=== PATIENT | male | born 1980 | race African-American/Black ===

== ENCOUNTER 2023-05-09 09:28 | Inpatient (IN) ==
--- NOTE | 2023-05-09 10:41 | Emergency Department Note ---
History of Present Illness General Chief complaint: Hypotension Stated complaint: WEAKNESS,LOW BP Time Seen by Provider: 05/09/23 10:13 History of Present Illness This is a 42-year-old male that presents to the emergency department via private vehicle accompanied by 2 corrections officers from [facility] where he is currently incarcerated with complaints of "weakness, low blood pressure". The patient notes that he has a history of HIV, vitamin D deficiency, iron deficiency anemia. He states that over the past 3 weeks he has been experiencing increased cough. At times it is productive of green phlegm. No fevers. He notes that he has been compliant with his Biktarvy HIV regimen but did not take it yesterday or today. Patient also notes diarrhea. No vomiting. No chest pain or shortness of breath. No abdominal pain. Patient states that he was hospitalized for several months last year noting pneumonia, GI bleeding and required several blood transfusions. The patient denies any blood in the stool at this time. No blood in the cough. Patient also notes recent weight loss. Patient states that his presentation today feels similar to what prompted him to be hospitalized last year. Additional history obtained from the [facility] report that is accompanying the patient. Patient was reportedly hypotensive yesterday and today despite 1 liter of IV yesterday and throughout the night. Medical history reviewed. No known drug allergies per review of the chart. Home Medications Medication Instructions Recorded Confirmed Type Biktarvy 1 tab PO DAILY 05/09/23 05/09/23 History cholecalciferol (vitamin D3) 25 25 mcg PO DAILY 05/09/23 05/09/23 History mcg (1,000 unit) tablet ergocalciferol (vitamin D2) 1,250 50,000 unit PO . WEEKLY ON Fridays05/09/23 05/09/23 History mcg (50,000 unit) capsule (Drisdol) ferrous sulfate 324 mg (65 mg 324 mg PO DAILY 05/09/23 05/09/23 History iron) tablet,delayed release sulfamethoxazole 800 1 tab PO DAILY 05/09/23 05/09/23 History mg-trimethoprim 160 mg tablet (Bactrim DS) Allergies Allergy/AdvReac Type Severity Reaction Status Date / Time No Known Allergies Allergy Unverified 05/09/23 12:19 Past Med/Surg History Medical History HIV (human immunodeficiency virus infection) Iron deficiency anemia Vitamin D deficiency Social History Smoking Status: Never smoker Preferred Language: [place] Feels Safe at Home: Yes Review of Systems A total of 10 systems reviewed and were otherwise negative Physical Exam Vital Signs Vital Signs - 24 hr 05/09/23 09:41 05/09/23 10:00 05/09/23 10:14 Temperature 36.1 C L Temperature Source Temporal Artery Scan Pulse Rate 64 84 Pulse Rate [Apical] 85 Pulse Rate from SpO2 Sensor Respiratory Rate 19 14 Respiratory Effort / Characteristics Non-Labored Non-Labored Spontaneous Respiratory Depth Normal Normal Respiratory Pattern Regular Blood Pressure 90/61 L Blood Pressure [Left Arm] 97/72 L Blood Pressure Mean 70 Blood Pressure Mean [Left Arm] 80 Pulse Oximetry 100 99 Oxygen Delivery Method Room Air Room Air Sepsis Recent Fever Within 48 Hours No Sepsis New/Unexplained Change in Mental Status No Sepsis Action Taken by Nursing No Action Required 05/09/23 13:19 05/09/23 11:00 05/09/23 12:03 Temperature Temperature Source Pulse Rate 77 Pulse Rate [Apical] Pulse Rate from SpO2 Sensor 78 Respiratory Rate 14 Respiratory Effort / Characteristics Respiratory Depth Respiratory Pattern Blood Pressure 95/69 L 99/55 L Blood Pressure [Left Arm] Blood Pressure Mean 77 64 Blood Pressure Mean [Left Arm] Pulse Oximetry 99 Oxygen Delivery Method Room Air Sepsis Recent Fever Within 48 Hours Sepsis New/Unexplained Change in Mental Status Sepsis Action Taken by Nursing 05/09/23 12:30 05/09/23 13:00 Temperature Temperature Source Pulse Rate 75 84 Pulse Rate [Apical] Pulse Rate from SpO2 Sensor Respiratory Rate 20 18 Respiratory Effort / Characteristics Respiratory Depth Respiratory Pattern Blood Pressure 106/63 108/73 Blood Pressure [Left Arm] Blood Pressure Mean 77 84 Blood Pressure Mean [Left Arm] Pulse Oximetry Oxygen Delivery Method Sepsis Recent Fever Within 48 Hours Sepsis New/Unexplained Change in Mental Status Sepsis Action Taken by Nursing VITAL SIGNS - Vital signs and nursing notes were reviewed. Mildly hypotensive, otherwise stable. GENERAL -42-year-old male appearing his stated age who is in no acute distress. Communicates well with provider and answers questions appropriately. SKIN - Without rashes. No meningeal or petechial rash. HEAD - NC/AT. EYES - PERRL with EOMI bilaterally. Sclera anicteric. EARS - No deformities of external structures noted on gross examination bilaterally. NOSE - Midline and without cyanosis. No epistaxis or purulent drainage noted. MOUTH/OROPHARYNX - Without perioral cyanosis. Buccal mucosa pink and moist and without leukoplakia. Tongue midline with equal elevation of palate bilaterally. No tonsillar hypertrophy, erythema, or exudates noted. Good dentition noted. NECK - Neck with FROM. No nuchal rigidity. LUNGS -clear to auscultation CARDIAC - RRR ABDOMEN - Abdominal contour normal without pulsations or visible masses. BS normoactive all four quadrants. No tenderness, palpable masses, hepatosplenomegaly, or ascites noted. EXTREMITIES - No clubbing or peripheral cyanosis. Mild pale appearance to the fingers bilaterally. +5/5 strength noted in UE/LE bilaterally. NEUROLOGIC - Cranial nerves II through XII grossly intact. PSYCH - A&Ox3 and cooperates fully with examiner. Pt is very pleasant and interacts well with examiner. Course Administered Medications Cefepime HCl 2,000 mg/ Syringe 20 mls @ 5 mls/min IV Q8H JANES; Protocol Stop: 05/11/23 20:59 Last Admin: 05/09/23 20:16 Dose: 5 mls/min Documented By: MARISELA Discontinued Medications Bictegravir/Emtricitabine/Tenofovir (Biktarvy) 1 each PO NOW ONE Stop: 05/09/23 12:16 Last Admin: 05/09/23 12:59 Dose: 1 each Documented By: HARSHIL Sodium Chloride (Nss) 1,000 mls @ 500 mls/hr IV .Q2H JANES Stop: 05/09/23 12:44 Last Infusion: 05/09/23 12:57 Dose: 0 mls/hr Documented By: Admin: 05/09/23 10:51 Dose: 500 mls/hr Documented By: HARSHIL Cefepime HCl (Maxipime) 2,000 mg in 20 mls @ 5 mls/min IV NOW STA; Protocol Stop: 05/09/23 10:57 Last Admin: 05/09/23 12:53 Dose: 5 mls/min Documented By: HARSHIL Vancomycin HCl 1,250 mg/ (Sodium Chloride) 525 mls @ 200 mls/hr IV NOW ONE Stop: 05/09/23 13:31 Last Admin: 05/09/23 11:58 Dose: 200 mls/hr Documented By: HARSHIL Vancomycin HCl 1,000 mg/ (Sodium Chloride) 270 mls @ 200 mls/hr IV Q12H JANES Stop: 05/11/23 15:59 Last Infusion: 05/09/23 16:58 Dose: 0 mls/hr Documented By: Admin: 05/09/23 16:04 Dose: 200 mls/hr Documented By: ADAM Ioversol (Optiray 320 500ml) 116 ml IV ONCE ONE Stop: 05/09/23 13:11 Last Admin: 05/09/23 13:12 Dose: 116 ml Documented By: ZURI Critical Care Time I have personally spent about 60 minutes of critical care time in the direct management of this patient. This includes bedside care, interpretation of diagnostic studies, testing, discussion with consultants, patient and other required patient management activities. This 60 minutes is in excess of all separately billable procedures. Medical Decision Making Laboratory Data 05/09/23 11:20 05/09/23 11:20 Lab Results 05/09/23 05/09/23 05/09/23 Range/Units 11:04 11:20 11:20 WBC (4.8-10.8) K/ul RBC (4.70-6.10) M/uL Hgb (14.0-18.0) g/dl Hct (42.0-52.0) % MCV (80.0-100.0) fL MCH (25.0-34.0) pg MCHC (32.0-36.0) g/dL RDW Std Deviation (36.4-46.3) fL RDW Coeff of Brody (11.5-14.5) % Plt Count (130-400) K/uL MPV (9.4-12.4) fL Immature Gran % (Auto) % Neut % (Auto) % Lymph % (Auto) % [place] % (Auto) % Eos % (Auto) % Baso % (Auto) % Neut # (Auto) (1.40-6.50) K/uL Lymph # (Auto) (1.20-3.40) K/uL [place] # (Auto) (0.11-0.59) K/uL Eos # (Auto) (0.00-0.50) K/uL Baso # (Auto) (0.00-0.20) K/uL Immature Gran # (Auto) (0.01-0.20) K/uL Polychromasia Hypochromasia Tear Drop Cells Echinocytes Schistocytes PT (9.0-12.0) Seconds INR (0.9-1.1) APTT (21.0-31.0) Seconds PTT Ratio Sodium (136-145) mmol/L Potassium (3.5-5.1) mmol/L Chloride (98-107) mmol/L Carbon Dioxide (21-32) mmol/L Anion Gap (3-11) BUN (6-23) mg/dl Creatinine (0.6-1.4) mg/dl Est Cr Clr Drug Dosing ml/min Est GFR ( Amer) ml/min Est GFR (Non-Af Amer) ml/min BUN/Creatinine Ratio (10-20) Glucose (70-99(Fasting)) mg/dl Lactate 1.1 (0.4-2.0) mmol/L Calcium (8.6-10.3) mg/dl Magnesium (1.7-2.4) mg/dl Iron (35-175) mcg/dl TIBC Unsaturated IBC (155-355) mcg/dl Transferrin % Sat Ferritin (8-388) ng/ml Total Bilirubin (0.2-1.0) mg/dl AST (13-39) U/L ALT (7-52) U/L Alkaline Phosphatase (34-104) U/L Troponin I High Sens (0-20) pg/ml Total Protein (6.0-8.3) gm/dl Albumin (3.4-5.0) gm/dl Globulin (2.5-4.0) gm/dl Albumin/Globulin Ratio (0.9-2) Vitamin B12 (180-914) pg/ml Folate (>5.38) ng/ml Procalcitonin 1.00 H (0-0.5) ng/ml TSH (0.300-4.500) uIu/ml Urine Color Urine Appearance (Clear) Urine pH (4.5-7.5) Ur Specific [place] (1.000-1.030) Urine Protein (Negative) Urine Glucose (UA) (Negative) Urine Ketones (Negative) Urine Blood (Negative) Urine Nitrite (Negative) Urine Bilirubin (Negative) Urine Urobilinogen (Negative) Ur Leukocyte Esterase (Negative) Urine WBC (Auto) (0-5) /hpf Urine RBC (Auto) (0-4) /hpf U Hyaline Cast (Auto) (0-5) /lpf U Epithel Cells (Auto) (0-5) /lpf Urine Bacteria (Auto) (Negative) Nasal Screen MRSA (PCR) Negative (Negative) Adenovirus (PCR) (NotDetected) B. pertussis DNA (PCR) (NotDetected) B.parapertussis DNA PCR (NotDetected) C. pneumoniae DNA (PCR) (NotDetected) Coronavirus OC43 (PCR) (NotDetected) Coronavirus HKU1 (PCR) (NotDetected) Coronavirus 229E (PCR) (NotDetected) SARS-CoV-2 (PCR) (NotDetected) Coronavirus NL63 (PCR) (NotDetected) Human Metapneumovir PCR (NotDetected) Influenza Type A (PCR) (NotDetected) Influenza Type B (PCR) (NotDetected) M. pneumoniae (PCR) (NotDetected) Parainfluenza 1 (PCR) (NotDetected) Parainfluenza 2 (PCR) (NotDetected) Parainfluenza 3 (PCR) (NotDetected) Parainfluenza 4 (PCR) (NotDetected) RSV (PCR) (NotDetected) Entero/Rhino (PCR) (NotDetected) Blood Type Blood Type Recheck Antibody Screen Antibody Identification Antigen Identification Crossmatch 05/09/23 05/09/23 05/09/23 Range/Units 11:20 11:20 11:20 WBC 11.88 H (4.8-10.8) K/ul RBC 3.65 L (4.70-6.10) M/uL Hgb 7.3 L (14.0-18.0) g/dl Hct 23.8 L (42.0-52.0) % MCV 65.2 L (80.0-100.0) fL MCH 20.0 L (25.0-34.0) pg MCHC 30.7 L (32.0-36.0) g/dL RDW Std Deviation 39.9 (36.4-46.3) fL RDW Coeff of Brody 17.2 H (11.5-14.5) % Plt Count 408 H (130-400) K/uL MPV 9.1 L (9.4-12.4) fL Immature Gran % (Auto) 0.7 % Neut % (Auto) 77.5 % Lymph % (Auto) 14.5 % [place] % (Auto) 4.8 % Eos % (Auto) 2.2 % Baso % (Auto) 0.3 % Neut # (Auto) 9.22 H (1.40-6.50) K/uL Lymph # (Auto) 1.72 (1.20-3.40) K/uL [place] # (Auto) 0.57 (0.11-0.59) K/uL Eos # (Auto) 0.26 (0.00-0.50) K/uL Baso # (Auto) 0.03 (0.00-0.20) K/uL Immature Gran # (Auto) 0.08 (0.01-0.20) K/uL Polychromasia 1+ Hypochromasia Present Tear Drop Cells 1+ Echinocytes 1+ Schistocytes 1+ PT 11.4 (9.0-12.0) Seconds INR 1.0 (0.9-1.1) APTT 30.8 (21.0-31.0) Seconds PTT Ratio 1.1 Sodium 136 (136-145) mmol/L Potassium 4.2 (3.5-5.1) mmol/L Chloride 107 (98-107) mmol/L Carbon Dioxide 25 (21-32) mmol/L Anion Gap 4 (3-11) BUN 10 (6-23) mg/dl Creatinine 0.98 (0.6-1.4) mg/dl Est Cr Clr Drug Dosing 96.2 ml/min Est GFR ( Amer) 111.3 ml/min Est GFR (Non-Af Amer) 96.1 ml/min BUN/Creatinine Ratio 10.2 (10-20) Glucose 90 (70-99(Fasting)) mg/dl Lactate (0.4-2.0) mmol/L Calcium 7.7 L (8.6-10.3) mg/dl Magnesium 1.8 (1.7-2.4) mg/dl Iron < 10 L (35-175) mcg/dl TIBC TNP Unsaturated IBC 113 L (155-355) mcg/dl Transferrin % Sat TNP Ferritin 219.7 (8-388) ng/ml Total Bilirubin 0.3 (0.2-1.0) mg/dl AST 9 L (13-39) U/L ALT 3 L (7-52) U/L Alkaline Phosphatase 75 (34-104) U/L Troponin I High Sens 5.8 (0-20) pg/ml Total Protein 6.1 (6.0-8.3) gm/dl Albumin 2.3 L (3.4-5.0) gm/dl Globulin 3.8 (2.5-4.0) gm/dl Albumin/Globulin Ratio 0.6 L (0.9-2) Vitamin B12 (180-914) pg/ml Folate (>5.38) ng/ml Procalcitonin (0-0.5) ng/ml TSH 1.770 (0.300-4.500) uIu/ml Urine Color Urine Appearance (Clear) Urine pH (4.5-7.5) Ur Specific [place] (1.000-1.030) Urine Protein (Negative) Urine Glucose (UA) (Negative) Urine Ketones (Negative) Urine Blood (Negative) Urine Nitrite (Negative) Urine Bilirubin (Negative) Urine Urobilinogen (Negative) Ur Leukocyte Esterase (Negative) Urine WBC (Auto) (0-5) /hpf Urine RBC (Auto) (0-4) /hpf U Hyaline Cast (Auto) (0-5) /lpf U Epithel Cells (Auto) (0-5) /lpf Urine Bacteria (Auto) (Negative) Nasal Screen MRSA (PCR) (Negative) Adenovirus (PCR) (NotDetected) B. pertussis DNA (PCR) (NotDetected) B.parapertussis DNA PCR (NotDetected) C. pneumoniae DNA (PCR) (NotDetected) Coronavirus OC43 (PCR) (NotDetected) Coronavirus HKU1 (PCR) (NotDetected) Coronavirus 229E (PCR) (NotDetected) SARS-CoV-2 (PCR) (NotDetected) Coronavirus NL63 (PCR) (NotDetected) Human Metapneumovir PCR (NotDetected) Influenza Type A (PCR) (NotDetected) Influenza Type B (PCR) (NotDetected) M. pneumoniae (PCR) (NotDetected) Parainfluenza 1 (PCR) (NotDetected) Parainfluenza 2 (PCR) (NotDetected) Parainfluenza 3 (PCR) (NotDetected) Parainfluenza 4 (PCR) (NotDetected) RSV (PCR) (NotDetected) Entero/Rhino (PCR) (NotDetected) Blood Type Blood Type Recheck Antibody Screen Antibody Identification Antigen Identification Crossmatch 05/09/23 05/09/23 05/09/23 Range/Units 11:20 11:50 12:31 WBC (4.8-10.8) K/ul RBC (4.70-6.10) M/uL Hgb (14.0-18.0) g/dl Hct (42.0-52.0) % MCV (80.0-100.0) fL MCH (25.0-34.0) pg MCHC (32.0-36.0) g/dL RDW Std Deviation (36.4-46.3) fL RDW Coeff of Brody (11.5-14.5) % Plt Count (130-400) K/uL MPV (9.4-12.4) fL Immature Gran % (Auto) % Neut % (Auto) % Lymph % (Auto) % [place] % (Auto) % Eos % (Auto) % Baso % (Auto) % Neut # (Auto) (1.40-6.50) K/uL Lymph # (Auto) (1.20-3.40) K/uL [place] # (Auto) (0.11-0.59) K/uL Eos # (Auto) (0.00-0.50) K/uL Baso # (Auto) (0.00-0.20) K/uL Immature Gran # (Auto) (0.01-0.20) K/uL Polychromasia Hypochromasia Tear Drop Cells Echinocytes Schistocytes PT (9.0-12.0) Seconds INR (0.9-1.1) APTT (21.0-31.0) Seconds PTT Ratio Sodium (136-145) mmol/L Potassium (3.5-5.1) mmol/L Chloride (98-107) mmol/L Carbon Dioxide (21-32) mmol/L Anion Gap (3-11) BUN (6-23) mg/dl Creatinine (0.6-1.4) mg/dl Est Cr Clr Drug Dosing ml/min Est GFR ( Amer) ml/min Est GFR (Non-Af Amer) ml/min BUN/Creatinine Ratio (10-20) Glucose (70-99(Fasting)) mg/dl Lactate (0.4-2.0) mmol/L Calcium (8.6-10.3) mg/dl Magnesium (1.7-2.4) mg/dl Iron (35-175) mcg/dl TIBC Unsaturated IBC (155-355) mcg/dl Transferrin % Sat Ferritin (8-388) ng/ml Total Bilirubin (0.2-1.0) mg/dl AST (13-39) U/L ALT (7-52) U/L Alkaline Phosphatase (34-104) U/L Troponin I High Sens (0-20) pg/ml Total Protein (6.0-8.3) gm/dl Albumin (3.4-5.0) gm/dl Globulin (2.5-4.0) gm/dl Albumin/Globulin Ratio (0.9-2) Vitamin B12 1026 H (180-914) pg/ml Folate 4.31 L (>5.38) ng/ml Procalcitonin (0-0.5) ng/ml TSH (0.300-4.500) uIu/ml Urine Color Yellow Urine Appearance Clear (Clear) Urine pH 5.0 (4.5-7.5) Ur Specific [place] 1.019 (1.000-1.030) Urine Protein Negative (Negative) Urine Glucose (UA) Negative (Negative) Urine Ketones Negative (Negative) Urine Blood Negative (Negative) Urine Nitrite Negative (Negative) Urine Bilirubin Negative (Negative) Urine Urobilinogen Negative (Negative) Ur Leukocyte Esterase Trace H (Negative) Urine WBC (Auto) 1-5 (0-5) /hpf Urine RBC (Auto) 0-4 (0-4) /hpf U Hyaline Cast (Auto) 1-5 (0-5) /lpf U Epithel Cells (Auto) 5-10 H (0-5) /lpf Urine Bacteria (Auto) Negative (Negative) Nasal Screen MRSA (PCR) (Negative) Adenovirus (PCR) (NotDetected) B. pertussis DNA (PCR) (NotDetected) B.parapertussis DNA PCR (NotDetected) C. pneumoniae DNA (PCR) (NotDetected) Coronavirus OC43 (PCR) (NotDetected) Coronavirus HKU1 (PCR) (NotDetected) Coronavirus 229E (PCR) (NotDetected) SARS-CoV-2 (PCR) (NotDetected) Coronavirus NL63 (PCR) (NotDetected) Human Metapneumovir PCR (NotDetected) Influenza Type A (PCR) (NotDetected) Influenza Type B (PCR) (NotDetected) M. pneumoniae (PCR) (NotDetected) Parainfluenza 1 (PCR) (NotDetected) Parainfluenza 2 (PCR) (NotDetected) Parainfluenza 3 (PCR) (NotDetected) Parainfluenza 4 (PCR) (NotDetected) RSV (PCR) (NotDetected) Entero/Rhino (PCR) (NotDetected) Blood Type B Positive Blood Type Recheck Antibody Screen POSITIVE A Antibody Identification Anti-M Antigen Identification M Antigen - NEGATIVE Crossmatch See Detail 05/09/23 05/09/23 Range/Units 12:46 13:35 WBC (4.8-10.8) K/ul RBC (4.70-6.10) M/uL Hgb (14.0-18.0) g/dl Hct (42.0-52.0) % MCV (80.0-100.0) fL MCH (25.0-34.0) pg MCHC (32.0-36.0) g/dL RDW Std Deviation (36.4-46.3) fL RDW Coeff of Brody (11.5-14.5) % Plt Count (130-400) K/uL MPV (9.4-12.4) fL Immature Gran % (Auto) % Neut % (Auto) % Lymph % (Auto) % [place] % (Auto) % Eos % (Auto) % Baso % (Auto) % Neut # (Auto) (1.40-6.50) K/uL Lymph # (Auto) (1.20-3.40) K/uL [place] # (Auto) (0.11-0.59) K/uL Eos # (Auto) (0.00-0.50) K/uL Baso # (Auto) (0.00-0.20) K/uL Immature Gran # (Auto) (0.01-0.20) K/uL Polychromasia Hypochromasia Tear Drop Cells Echinocytes Schistocytes PT (9.0-12.0) Seconds INR (0.9-1.1) APTT (21.0-31.0) Seconds PTT Ratio Sodium (136-145) mmol/L Potassium (3.5-5.1) mmol/L Chloride (98-107) mmol/L Carbon Dioxide (21-32) mmol/L Anion Gap (3-11) BUN (6-23) mg/dl Creatinine (0.6-1.4) mg/dl Est Cr Clr Drug Dosing ml/min Est GFR ( Amer) ml/min Est GFR (Non-Af Amer) ml/min BUN/Creatinine Ratio (10-20) Glucose (70-99(Fasting)) mg/dl Lactate (0.4-2.0) mmol/L Calcium (8.6-10.3) mg/dl Magnesium (1.7-2.4) mg/dl Iron (35-175) mcg/dl TIBC Unsaturated IBC (155-355) mcg/dl Transferrin % Sat Ferritin (8-388) ng/ml Total Bilirubin (0.2-1.0) mg/dl AST (13-39) U/L ALT (7-52) U/L Alkaline Phosphatase (34-104) U/L Troponin I High Sens (0-20) pg/ml Total Protein (6.0-8.3) gm/dl Albumin (3.4-5.0) gm/dl Globulin (2.5-4.0) gm/dl Albumin/Globulin Ratio (0.9-2) Vitamin B12 (180-914) pg/ml Folate (>5.38) ng/ml Procalcitonin (0-0.5) ng/ml TSH (0.300-4.500) uIu/ml Urine Color Urine Appearance (Clear) Urine pH (4.5-7.5) Ur Specific [place] (1.000-1.030) Urine Protein (Negative) Urine Glucose (UA) (Negative) Urine Ketones (Negative) Urine Blood (Negative) Urine Nitrite (Negative) Urine Bilirubin (Negative) Urine Urobilinogen (Negative) Ur Leukocyte Esterase (Negative) Urine WBC (Auto) (0-5) /hpf Urine RBC (Auto) (0-4) /hpf U Hyaline Cast (Auto) (0-5) /lpf U Epithel Cells (Auto) (0-5) /lpf Urine Bacteria (Auto) (Negative) Nasal Screen MRSA (PCR) (Negative) Adenovirus (PCR) Not Detected (NotDetected) B. pertussis DNA (PCR) Not Detected (NotDetected) B.parapertussis DNA PCR Not Detected (NotDetected) C. pneumoniae DNA (PCR) Not Detected (NotDetected) Coronavirus OC43 (PCR) Not Detected (NotDetected) Coronavirus HKU1 (PCR) Not Detected (NotDetected) Coronavirus 229E (PCR) Not Detected (NotDetected) SARS-CoV-2 (PCR) Not Detected (NotDetected) Coronavirus NL63 (PCR) Not Detected (NotDetected) Human Metapneumovir PCR Not Detected (NotDetected) Influenza Type A (PCR) Not Detected (NotDetected) Influenza Type B (PCR) Not Detected (NotDetected) M. pneumoniae (PCR) Not Detected (NotDetected) Parainfluenza 1 (PCR) Not Detected (NotDetected) Parainfluenza 2 (PCR) Not Detected (NotDetected) Parainfluenza 3 (PCR) Not Detected (NotDetected) Parainfluenza 4 (PCR) Not Detected (NotDetected) RSV (PCR) Not Detected (NotDetected) Entero/Rhino (PCR) Not Detected (NotDetected) Blood Type Blood Type Recheck B Positive Antibody Screen Antibody Identification Antigen Identification Crossmatch Imaging Data Radiologist's Impression: Chest X-Ray 05/09/23 10:30 XR chest 1V portable CLINICAL HISTORY: cough, hx pneumothorax COMPARISON STUDY: No previous studies for comparison. FINDINGS: Lung volumes are normal. There is no pneumothorax or pleural effusion. Cardiac size is normal. Mediastinal contours are normal. There may be pleural thickening within the right hemithorax. Slight asymmetric interstitial thickening within the right lung is noted. No definite consolidation to suggest pneumonia. IMPRESSION: 1. No pneumothorax. 2. Slight asymmetric interstitial thickening within the right lung with apparent pleural thickening. The findings are probably chronic however an infectious process could appear similar. No definite consolidation. Radiographic follow-up to ensure stability/resolution is recommended. ACT 112: Negative or not required by law. Electronically signed by: Efrain Stevens M.D. 05/09/2023 10:52 AM Abdomen/Pelvis CT 05/09/23 12:34 CT OF THE ABDOMEN AND PELVIS WITH CONTRAST CLINICAL HISTORY: Cough, hypotension, anemia. COMPARISON STUDY: None. TECHNIQUE: Following IV administration of 116 mL of Optiray, axial images of the abdomen and pelvis were obtained from the lung bases to the proximal femurs. Images were reviewed in the axial, sagittal, and coronal planes. IV contrast was administered without complication. Automated exposure control was utilized for the study. A dose lowering technique was utilized adhering to the principles of ALARA. FINDINGS: Please note the chest CT will be reported separately. No pneumatosis, free air or portal venous gas is present. There is periportal edema. No biliary or pancreatic ductal dilatation is present. There are no hepatic lesions. Mild hepatosplenomegaly is present. A small gallstone within the upper neck is present. There may be a 3 mm calcified stone within the cystic duct. There is moderate gallbladder wall thickening of the gallbladder is not distended. There is no peripancreatic infiltration or fluid. There is a 3 mm right renal calculus. There is no hydronephrosis. No ureteral calculi are present. The appendix is normal. A small amount of abdominal and pelvic ascites is present. No fluid collections are present. Evaluation of the abdomen and pelvis is difficult given a paucity of intra-abdominal fat. There is apparent wall thickening of multiple jejunal loops. Major vasculature is patent. Several mildly enlarged mesenteric lymph nodes are noted. Index node on image 150 measures 1.5 x 1.4 cm. There is mild diffuse mesenteric stranding. No acute fractures are identified. IMPRESSION: 1. No bowel obstruction. Normal appendix. Apparent wall thickening of multiple jejunal loops. This is nonspecific and may be related to underdistention or other etiologies such as hypoalbuminemia. A nonspecific enteritis given mesenteric stranding could appear similar. 2. Evidence for mild volume overload with anasarca, trace ascites and periportal edema. 3. Cholelithiasis and possible stone within the cystic duct. However, gallbladder not distended. Moderate gallbladder wall thickening which may also be related to volume overload/hydration. The findings do not suggest acute cholecystitis. 4. 3 mm right renal calculus. No ureteral calculi. No hydronephrosis. 5. A few mildly enlarged mesenteric lymph nodes. These are likely benign. A follow-up CT in 6 months to ensure stability/resolution is recommended. ACT 112: Negative or not required by law. Electronically signed by: Efrain Stevens M.D. 05/09/2023 1:46 PM Chest CTA 05/09/23 12:34 CT angio chest PE protocol CT DOSE: 1057.63 mGy.cm HISTORY: 42 years-old Male with Cough, hypotension, anemia. Acute with hypotension TECHNIQUE: Multiple CTA images of the chest were obtained after the intravenous administration of 116 ml Optiray. Coronal and sagittal MIPS were obtained from the axial data set and were submitted for review. All measurements were obtained according to NASCET criteria. A dose lowering technique was utilized adhering to the principles of ALARA. COMPARISON: CT abdomen and pelvis of same day FINDINGS: CTA: The heart is normal in size. There is no pericardial effusion. Unremarkable thoracic aorta. No pulmonary emboli identified. Mixing artifact within the pulmonary arterial tree is suboptimal dilation of the subsegmental branches secondary to timing. CT CHEST: Unremarkable thyroid. No pathologically enlarged lymph nodes of the chest. Trace pleural effusions. Right-sided calcified pleural plaques. Biapical fibrotic changes. Cylindrical bronchiectasis is noted, most pronounced within the upper to mid lung zones. Reticular interstitial densities with mixed groundglass opacities. Biapical bleb and bulla formation. Linear areas of consolidation within the lung bases are most pronounced in the right middle lobe and lingula.r 11 mm subpleural nodular focus in the posterior basal segment right lower lobe on image 71. Similar appearing 6 mL linear focus within the superior segment right lower lobe, image 159. Hepatosplenomegaly. Periportal edema. Generalized body wall edema. No acute fracture or destructive bone lesion identified. IMPRESSION: 1. No pulmonary emboli identified. 2. Bronchiectasis with chronic interstitial lung disease and biapical bleb and bulla formation. 3. Patchy and irregular areas of consolidation which are most pronounced within the right middle lobe and lingula with upper lung zone predominant groundglass densities may also be related to the chronic lung disease however a superimposed infectious or inflammatory pneumonitis could appear similarly. 4. Three-month follow-up chest CT recommended to assess the aforementioned irregular areas of consolidation. 5. Trace pleural effusions. ACT 112: Negative or not required by law. The above report was generated using voice recognition software. It may contain grammatical, syntax or spelling errors. Electronically signed by: Rashid Nunez M.D. 05/09/2023 1:53 PM MDM Narrative Patient was seen and evaluated as above in room C10. Review was performed of triage nursing notes and vital signs. I did review the accompanying medical documentation from the [facility] where the patient currently is incarcerated. After obtaining a thorough history and physical examination the above work up was performed. Patient presents to us today for evaluation of hypotension. The patient noted that yesterday evening he was started on some IV fluids and actually feels much better at the present time compared to yesterday. The patient notes a history of HIV but has not taken the Biktarvy medication today or yesterday. He has had a cough for the past 3 weeks and diarrhea. Cough at times is productive of green sputum. Options of care were discussed with the patient. IV access was established. L abs were drawn. Shortly after evaluation of the patient, at 10:33 AM I spoke to the physician at the [facility]. I spoke with Dr. Casillas. We reviewed the case. He is concerned the patient may be septic. I shared this concern as well as the patient is immunocompromised, has a history of infection and is hypotensive. IV fluids, empiric IV antibiotics ordered as well as a thorough work-up. At 10:38 AM I spoke to Elio Cabrera with the [facility] to obtain Biktarvy. We do not have Biktarvy at our facility, therefore Elio will arrange transport to have the medicine brought here so the patient will not miss any further doses. Medicine was brought by the healthcare general administrator from the institution. Medication was administered. Chest x-ray per my interpretation reveals no pneumothorax. No obvious large consolidation. Radiology report also agrees no pneumothorax. They do comment on some slight asymmetric interstitial thickening within the right lung with apparent pleural thickening. This may be chronic noting the patient's past medical history as he did require what sounds like a pleurodesis previously for pneumothorax. Laboratory studies then returned showing leukocytosis 11.88, anemia with hemoglobin of 7.3, elevated platelet count at 408, normal coags, no evidence of kidney or liver failure. Normal troponin. Elevated procalcitonin at 1.0. Normal lactate at 1.1. Septic shock less likely. However sepsis is possible. Normal urinalysis. A negative upper respiratory BioFire panel. CT scan was then obtained of the chest, abdomen and pelvis to further evaluate the patient's cough and source of potential infection. The chest CT reveals no PE. There is bronchiectasis with chronic interstitial lung disease and some blebs. There is comment of patchy and irregular areas of consolidation which are most pronounced within the right middle lobe and lingula with upper lung zone predominant groundglass densities may also be related to chronic lung disease however superimposed infectious or inflammatory pneumonitis could appear similar. CT scan of the abdomen and pelvis reveals no bowel obstruction. There is comment of wall thickening of multiple jejunal loops. This may be enteritis noting the diarrhea. There is also evidence of a mild volume overload but will note that the patient clinically does not appear fluid overloaded. He is breathing well without evidence of increased work of breathing. No evidence of pulmonary edema clinically. There is also comment of cholelithiasis but no evidence of acute cholecystitis. At this time the cause of the patient's hypotension may be multifactorial. The patient's stool was tested and was Hemoccult positive which was performed at 2:10 PM. However, I suspect that the patient's anemia in combination with likely infectious process has combined cause hypotension here today. The patient will require hospitalization for these ailments. The patient will require transfusion noting the hemoglobin level here today and hypotension. Appropriate consent form completed for transfusion. I did order 1 unit to be transfused now and 1 unit on hold. The patient at this time is not felt to require irradiated blood. At this time the patient will be admitted to the hospital. I did talk with the hospitalist service regarding the case. Please refer to further documentation regarding his stay. Case was discussed with the attending physician. The patient was kept informed of all findings today and was included in the decision-making process. All questions were answered. Patient amenable to plan of care. EKG reveals normal sinus rhythm at rate of 86 bpm. QTc 399. QRS 74. No ST elevation. GCS: 15 In the evaluation and treatment of this patient the following differential diagnoses were entertained: Acute blood loss anemia, GI bleed, sepsis, pneumonia, gastroenteritis, cardiac etiology, among others Impression & Plan Sepsis, Hypotension, Anemia, Cough, Diarrhea Discharge Plan Visit Data Chief Complaint: Hypotension Stated Complaint: WEAKNESS,LOW BP ED Provider: Elian Wood ED Midlevel Provider: Gregor Arroyo Discharge Problem: Sepsis, Hypotension, Anemia, Cough, Diarrhea Patient Disposition: Admitted As Inpatient Condition: Good Discharge Instructions Interventions: ED Discharge Assessment Last Done: 05/09/23 15:33
[2023-05-09] MEDS ORDERED: SODIUM CHLORIDE 0.9% 1,000 ML IV SCH (10:45)
--- NOTE | 2023-05-09 10:53 | XRay Report ---
XR chest 1V portable CLINICAL HISTORY: cough, hx pneumothorax COMPARISON STUDY: No previous studies for comparison. FINDINGS: Lung volumes are normal. There is no pneumothorax or pleural effusion. Cardiac size is norm al. Mediastinal contours are normal. There may be pleural thickening within the right hemithorax. Sli ght asymmetric interstitial thickening within the right lung is noted. No definite consolidation to s uggest pneumonia. IMPRESSION: 1. No pneumothorax. 2. Slight asymmetric interstitial thickening within the right lung with apparent pleural thickening. The findings are probably chronic however an infectious process could appear similar. No definite con solidation. Radiographic follow-up to ensure stability/resolution is recommended. ACT 112: Negative or not required by law. Electronically signed by: Efrain Stevens M.D. 05/09/2023 10:52 AM
[2023-05-09] MEDS ORDERED: VANCOMYCIN CONSULT ACTIVE PRN (10:54)
[2023-05-09] MEDS ORDERED: VANCOMYCIN HCL 1,250 MG in SODIUM CHLORIDE 0.9% 500 ML IV ONE (10:54)
[2023-05-09] MEDS ORDERED: CEFEPIME 2,000 MG/20 ML VIAL IV STA (10:54)
[2023-05-09 12:05] LABS: Basophils # (auto) 0.03 K/uL (0.00-0.20); Basophils % (auto) 0.3 %; Eosinophils # (auto) 0.26 K/uL (0.00-0.50); Eosinophils % (auto) 2.2 %; Hematocrit (blood only) 23.8 % (42.0-52.0); Hemoglobin 7.3 g/dl (14.0-18.0); Immature Granulocytes # (auto) 0.08 K/uL (0.01-0.20); Immature Granulocytes % (auto) 0.7 %; Lymphocytes # (auto) 1.72 K/uL (1.20-3.40); Lymphocytes % (auto) 14.5 %; Mean Corpuscular Hgb Conc 30.7 g/dL (32.0-36.0); Mean Corpuscular Volume 65.2 fL (80.0-100.0); Monocytes # (auto) 0.57 K/uL (0.11-0.59); Monocytes % (auto) 4.8 %; Neutrophils # (auto) 9.22 K/uL (1.40-6.50); Neutrophils % (auto) 77.5 %; RDW Coefficient of Variation 17.2 % (11.5-14.5); RDW Standard Deviation 39.9 fL (36.4-46.3); Red Blood Count 3.65 M/uL (4.70-6.10); White Blood Count 11.88 K/ul (4.8-10.8)
[2023-05-09 12:06] LABS: Alanine Aminotransferase 3 U/L (7-52); Albumin Globulin Ratio 0.6 (0.9-2); Albumin Level 2.3 gm/dl (3.4-5.0); Alkaline Phosphatase 75 U/L (34-104); Anion Gap 4 (3-11); Aspartate Aminotransferase 9 U/L (13-39); BUN Creatinine Ratio 10.2 (10-20); Bilirubin,Total 0.3 mg/dl (0.2-1.0); Blood Urea Nitrogen 10 mg/dl (6-23); Calcium 7.7 mg/dl (8.6-10.3); Carbon Dioxide 25 mmol/L (21-32); Chloride 107 mmol/L (98-107); Creatinine Clr Calc Pharmacy 96.2 ml/min; Est GFR (African American) 111.3 ml/min; Est GFR (Non-African American) 96.1 ml/min; Globulin 3.8 gm/dl (2.5-4.0); Glucose 90 mg/dl (70-99(Fasting)); Magnesium 1.8 mg/dl (1.7-2.4); Potassium 4.2 mmol/L (3.5-5.1); Sodium 136 mmol/L (136-145); Total Protein 6.1 gm/dl (6.0-8.3)
[2023-05-09 12:11] LABS: Partial Thromboplastin Ratio 1.1; Partial Thromboplastin Time 30.8 Seconds (21.0-31.0); Prothrombin Time 11.4 Seconds (9.0-12.0)
[2023-05-09 12:13] LABS: Troponin I High Sensitivity 5.8 pg/ml (0-20)
[2023-05-09] MEDS ORDERED: BIKTARVY PO ONE (12:15)
[2023-05-09 12:21] LABS: Appearance Urine Clear (Clear); Bacteria Urine Automated Negative (Negative); Bilirubin Urine Negative (Negative); Blood Urine Negative (Negative); Color Urine Yellow; Glucose Urine UA Negative (Negative); Ketones Urine Negative (Negative); Leukocyte Esterase Urine Trace (Negative); Nitrite Urine Negative (Negative); Protein Urine Negative (Negative); RBC Urine Automated 0-4 /hpf (0-4); Specific Gravity Urine 1.019 (1.000-1.030); Urobilinogen Urine Negative (Negative)
[2023-05-09] MEDS ORDERED: SODIUM CHLORIDE 0.9% 250 ML IV PRN (12:33)
[2023-05-09 12:35] LABS: Mean Platelet Volume 9.1 fL (9.4-12.4); Platelet Count 408 K/uL (130-400)
[2023-05-09 12:36] LABS: Echinocytes 1+; Hypochromasia Present; Polychromasia 1+; Schistocytes 1+; Tear Drop Cells 1+
--- NOTE | 2023-05-09 12:55 | History & Physical Report ---
Date of Service May 09, 2023 Assessment & Plan (1) Hypotension: Plan: Reportedly, 80/50s this morning BP 90/61 on arrival Unclear etiology but may be secondary to dehydration and hypovolemia from diarrhea Patient received IVF 1L yesterday, 1L today; caution fluid overload in the setting of blood transfusion (2) Anemia: Plan: Hgb 7.3 and Hct 23.8 on arrival Clinically, patient denies melena and blood in stool/urine No signs of active bleeding; may be chronic Patient with a hx of FREDIS Iron panel: Iron low at <10 Hold oral iron supplements in setting of GI bleed r/o Patient would benefit from Venofer 300 mg daily x 3 days, but receiving blood transfusion today 05/09; will defer to inpatient s/p blood transfusion Blood transfusion with 2 units leukoreduced PRBCs ordered; repeat H&H 1h after first unit transfused; second unit to be transfused if indicated Fecal occult stool positive; hx of GI bleeds Protonix 40 mg IV QAM Keep n.p.o. for now Folic acid low at 4.31 Give folic acid 1 mg IV QAM (3) Cough: Plan: Dry cough x1.5 months CXR showed "right lung with apparent pleural thickening" Procalcitonin mildly elevated at 1.0 Pleurodesis x2 History of collapsed lung and intubation in 2021 CTA chest revealed no pulmonary emboli, but identified bronchiectasis with chronic interstitial lung disease Biofire negative Sputum culture pending MRSA Screen negative; vancomycin discontinued Continue cefepime 2 g every 8 hours for empiric coverage No hx of CHF, per patient Blood culture pending Continue Bactrim daily; patient is chronically immunosuppressed in a half-way environment; hx of PJP PNA; will order Fungitell (4) HIV (human immunodeficiency virus infection): Plan: Dx in 2013 On bactrim; reports he is taking it consistently CD4: 4.03 CD absolute: 8.7 Continue Biktarvy (5) Diarrhea: Plan: Stool panel ordered Positive fecal occult blood Plan Admit to PCU telemetry Full code VTE PPx: SCDs (hold chemical DVT PPx in the setting of GI bleed rule out) N.p.o. in the setting of potential GI bleed History of Present Illness Chief Complaint: Hypotension Primary Care Provider: DIANA Castaneda Margarito is a 42-year-old male with PMH of HIV (on continuous Bactrim), vitamin D deficiency, and FREDIS. He presented from [facility] due to worsening cough, and hypotension in the 80/50s this morning. History of collapsed lung and intubation in 2021 (hospitalized from October - Mar 2022). Hx of multiple blood transfusions from blood in stool during this hospitalization. He denies recent hemoptysis, melena, or blood in the stool/urine. No recent changes in diet, but decreased appetite. He endorses diarrhea multiple times per night this past week; increased frequency. Dry cough ongoing x 1.5 month, but getting worse. Patient endorses mild SOB on exertion over the past few weeks. Hx of PJP pneumonia. Hypotensive at 90/61 on arrival; vitals otherwise stable. ED course: IVF, Biktarvy, vancomycin, cefepime, and 2 units PRBCs ROS: Patient endorses unintentional weight loss (166lb --> 146lb over 3.5 months), poor appetite, dry cough, diarrhea, and abdominal cramping. Patient denies fevers, chills, sweating, CORLEY, dizziness, lightheadedness, CP, pleuritic CP, SOB at rest, hemoptysis, N/V, melena, blood in stool/urine, swelling in legs, or numbness and tingling in legs. No PMHx of [place], CVA, PE/DVT, CHF, or diabetes, per patient PCV13 received 03/08/2023 Allergies Allergy/AdvReac Type Severity Reaction Status Date / Time No Known Allergies Allergy Unverified 05/09/23 12:19 Home Medications Medication Instructions Recorded Confirmed Type Biktarvy 1 tab PO DAILY 05/09/23 05/09/23 History cholecalciferol (vitamin D3) 25 25 mcg PO DAILY 05/09/23 05/09/23 History mcg (1,000 unit) tablet ergocalciferol (vitamin D2) 1,250 50,000 unit PO . WEEKLY ON Fridays05/09/23 05/09/23 History mcg (50,000 unit) capsule (Drisdol) ferrous sulfate 324 mg (65 mg 324 mg PO DAILY 05/09/23 05/09/23 History iron) tablet,delayed release sulfamethoxazole 800 1 tab PO DAILY 05/09/23 05/09/23 History mg-trimethoprim 160 mg tablet (Bactrim DS) Past Med/Surg History Medical History (Updated 05/09/23 @ 13:08 by Paco Kilgore PA-C) HIV (human immunodeficiency virus infection) Social History Smoking Status: Never smoker Preferred Language: Mauritian Feels Safe at Home: Yes Review of Systems Review of Systems: See HPI above Physical Exam Physical Exam: General: patient appears in no acute distress; appears stated age; well-nourish ed; cooperative HEENT: normocephalic, atraumatic; no scleral icterus; PERRLA w/ EOMs intact; moist mucus membrane; trachea midline; vision and hearing grossly intact Skin: warm, dry without signs of tenting; no cyanosis; no rashes or lesions noted Cardiac: RRR; no murmurs noted Pulm: no acute respiratory distress; symmetrical chest expansion; clear breath sounds across all lung vuong without adventitious sounds Abdominal: Soft, nontender to palpation; BS present; no ascites; no distention MSK: no tics or fasciculations; no edema noted in the LEs b/l; pulses intact and symmetrical at radial, DP, and PT Neuro: A&Ox3; no tremors; no focal defects Results & Data Results & Data Vital Signs (Past 12 Hours) Vital Signs Temp Pulse Pulse Resp BP BP Pulse Ox 05/09/23 10:14 84 05/09/23 10:00 85 14 97/72 L 99 05/09/23 09:41 36.1 C L 64 19 90/61 L 100 O2 Del Method 05/09/23 10:14 05/09/23 10:00 Room Air 05/09/23 09:41 Room Air Laboratory Results Abnormal lab results 05/09/23 05/09/23 05/09/23 Range/Units 11:20 11:20 11:20 WBC 11.88 H (4.8-10.8) K/ul RBC 3.65 L (4.70-6.10) M/uL Hgb 7.3 L (14.0-18.0) g/dl Hct 23.8 L (42.0-52.0) % MCV 65.2 L (80.0-100.0) fL MCH 20.0 L (25.0-34.0) pg MCHC 30.7 L (32.0-36.0) g/dL RDW Coeff of Brody 17.2 H (11.5-14.5) % Plt Count 408 H (130-400) K/uL MPV 9.1 L (9.4-12.4) fL Neut # (Auto) 9.22 H (1.40-6.50) K/uL Calcium 7.7 L (8.6-10.3) mg/dl Iron < 10 L (35-175) mcg/dl Unsaturated IBC 113 L (155-355) mcg/dl AST 9 L (13-39) U/L ALT 3 L (7-52) U/L Albumin 2.3 L (3.4-5.0) gm/dl Albumin/Globulin Ratio 0.6 L (0.9-2) Vitamin B12 (180-914) pg/ml Folate (>5.38) ng/ml Procalcitonin 1.00 H (0-0.5) ng/ml Ur Leukocyte Esterase (Negative) U Epithel Cells (Auto) (0-5) /lpf Crossmatch 05/09/23 05/09/23 05/09/23 Range/Units 11:20 11:50 12:31 WBC (4.8-10.8) K/ul RBC (4.70-6.10) M/uL Hgb (14.0-18.0) g/dl Hct (42.0-52.0) % MCV (80.0-100.0) fL MCH (25.0-34.0) pg MCHC (32.0-36.0) g/dL RDW Coeff of Brody (11.5-14.5) % Plt Count (130-400) K/uL MPV (9.4-12.4) fL Neut # (Auto) (1.40-6.50) K/uL Calcium (8.6-10.3) mg/dl Iron (35-175) mcg/dl Unsaturated IBC (155-355) mcg/dl AST (13-39) U/L ALT (7-52) U/L Albumin (3.4-5.0) gm/dl Albumin/Globulin Ratio (0.9-2) Vitamin B12 1026 H (180-914) pg/ml Folate 4.31 L (>5.38) ng/ml Procalcitonin (0-0.5) ng/ml Ur Leukocyte Esterase Trace H (Negative) U Epithel Cells (Auto) 5-10 H (0-5) /lpf Crossmatch See Detail Diagnostic Findings Chest X-Ray 05/09/23 10:30 XR chest 1V portable CLINICAL HISTORY: cough, hx pneumothorax COMPARISON STUDY: No previous studies for comparison. FINDINGS: Lung volumes are normal. There is no pneumothorax or pleural effusion. Cardiac size is normal. Mediastinal contours are normal. There may be pleural thickening within the right hemithorax. Slight asymmetric interstitial thickening within the right lung is noted. No definite consolidation to suggest pneumonia. IMPRESSION: 1. No pneumothorax. 2. Slight asymmetric interstitial thickening within the right lung with apparent pleural thickening. The findings are probably chronic however an infectious process could appear similar. No definite consolidation. Radiographic follow-up to ensure stability/resolution is recommended. ACT 112: Negative or not required by law. Electronically signed by: Efrain Stevens M.D. 05/09/2023 10:52 AM Abdomen/Pelvis CT 05/09/23 12:34 CT OF THE ABDOMEN AND PELVIS WITH CONTRAST CLINICAL HISTORY: Cough, hypotension, anemia. COMPARISON STUDY: None. TECHNIQUE: Following IV administration of 116 mL of Optiray, axial images of the abdomen and pelvis were obtained from the lung bases to the proximal femurs. Images were reviewed in the axial, sagittal, and coronal planes. IV contrast was administered without complication. Automated exposure control was utilized for the study. A dose lowering technique was utilized adhering to the principles of ALARA. FINDINGS: Please note the chest CT will be reported separately. No pneumatosis, free air or portal venous gas is present. There is periportal edema. No biliary or pancreatic ductal dilatation is present. There are no hepatic lesions. Mild hepatosplenomegaly is present. A small gallstone within the upper neck is present. There may be a 3 mm calcified stone within the cystic duct. There is moderate gallbladder wall thickening of the gallbladder is not distended. There is no peripancreatic infiltration or fluid. There is a 3 mm right renal calculus. There is no hydronephrosis. No ureteral calculi are present. The appendix is normal. A small amount of abdominal and pelvic ascites is present. No fluid collections are present. Evaluation of the abdomen and pelvis is difficult given a paucity of intra-abdominal fat. There is apparent wall thickening of multiple jejunal loops. Major vasculature is patent. Several mildly enlarged mesenteric lymph nodes are noted. Index node on image 150 m easures 1.5 x 1.4 cm. There is mild diffuse mesenteric stranding. No acute fractures are identified. IMPRESSION: 1. No bowel obstruction. Normal appendix. Apparent wall thickening of multiple jejunal loops. This is nonspecific and may be related to underdistention or other etiologies such as hypoalbuminemia. A nonspecific enteritis given mesenteric stranding could appear similar. 2. Evidence for mild volume overload with anasarca, trace ascites and periportal edema. 3. Cholelithiasis and possible stone within the cystic duct. However, gallbladder not distended. Moderate gallbladder wall thickening which may also be related to volume overload/hydration. The findings do not suggest acute cholecystitis. 4. 3 mm right renal calculus. No ureteral calculi. No hydronephrosis. 5. A few mildly enlarged mesenteric lymph nodes. These are likely benign. A follow-up CT in 6 months to ensure stability/resolution is recommended. ACT 112: Negative or not required by law. Electronically signed by: Efrain Stevens M.D. 05/09/2023 1:46 PM Chest CTA 05/09/23 12:34 CT angio chest PE protocol CT DOSE: 1057.63 mGy.cm HISTORY: 42 years-old Male with Cough, hypotension, anemia. Acute with hypotension TECHNIQUE: Multiple CTA images of the chest were obtained after the intravenous administration of 116 ml Optiray. Coronal and sagittal MIPS were obtained from the axial data set and were submitted for review. All measurements were obtained according to NASCET criteria. A dose lowering technique was utilized adhering to the principles of ALARA. COMPARISON: CT abdomen and pelvis of same day FINDINGS: CTA: The heart is normal in size. There is no pericardial effusion. Unremarkable thoracic aorta. No pulmonary emboli identified. Mixing artifact within the pulmonary arterial tree is suboptimal dilation of the subsegmental branches secondary to timing. CT CHEST: Unremarkable thyroid. No pathologically enlarged lymph nodes of the chest. Trace pleural effusions. Right-sided calcified pleural plaques. Biapical fibrotic changes. Cylindrical bronchiectasis is noted, most pronounced within the upper to mid lung zones. Reticular interstitial densities with mixed groundglass opacities. Biapical bleb and bulla formation. Linear areas of consolidation within the lung bases are most pronounced in the right middle lobe and lingula.r 11 mm subpleural nodular focus in the posterior basal segment right lower lobe on image 71. Similar appearing 6 mL linear focus within the superior segment right lower lobe, image 159. Hepatosplenomegaly. Periportal edema. Generalized body wall edema. No acute fracture or destructive bone lesion identified. IMPRESSION: 1. No pulmonary emboli identified. 2. Bronchiectasis with chronic interstitial lung disease and biapical bleb and bulla formation. 3. Patchy and irregular areas of consolidation which are most pronounced within the right middle lobe and lingula with upper lung zone predominant groundglass densities may also be related to the chronic lung disease however a superimposed infectious or inflammatory pneumonitis could appear similarly. 4. Three-month follow-up chest CT recommended to assess the aforementioned irregular areas of consolidation. 5. Trace pleural effusions. ACT 112: Negative or not required by law. The above report was generated using voice recognition software. It may contain grammatical, syntax or spelling errors. Electronically signed by: Rashid Nunez M.D. 05/09/2023 1:53 PM Code Status & VTE Plan Code Status Full code Supervising Physician Co-Signing Physician Notes Patient seen and examined, chart reviewed, case discussed with ESTELA Hidalgo and I agree with the assessment and plan as above except as otherwise noted Labs and images reviewed Margarito is a 42-year-old male inmate with a past medical history of HIV on Bactrim prophylaxis who presents with 3 to 4 weeks of progressive worsening cough and fatigue. He has recently had increased diarrhea, brown and loose but without blood/melena. Due to continuing to appear more seen by [facility], was noted to be hypotensive and was referred to Sanjay Hinds for evaluation. Patient reports he takes his medications as directed, Biktarvy was brought in and given to patient while in ER as this is not on formulary. Hemodynamics improved following fluids and he is normotensive and not tachycardic on initial assessment. At bedside lungs are clear with good air movement and no wheezing. Heart rate is regular. Abdomen is nontender he denies chest pain, chest pressure, lightheadedness, syncope, presyncope. He has not had brian melena, is noted to have a hemoglobin of 7.3. He is on iron supplementation at baseline. Suspect that this is a slow and chronic given that he is tolerating a hemoglobin 7.3 with relatively minimal symptoms, will transfuse 1 unit and check H&H after defer additional unless patient is symptomatic or downtrends. CT of the abdomen with contrast does not show any active extravasation. Does show some evidence of? Fluid overload/fluid shift, he is hypoalbuminemic? Nutritional deficiency in the setting of inmate status versus malabsorption. He is severely microcytic with severe iron deficiency on iron panel. As patient is receiving blood will defer blood on same day, however he would benefit from 1 g total course while in the hospital. Can give 400 mg x 1 day, then 300 mg daily for 2 days if doing well and no signs of sepsis. No epigastric pain or obvious source of upper GI bleeding, and BUN is not elevated. Given severe chronic anemia recommend patient have colon cancer screening with colonoscopy, this can be performed as outpatient if hemoglobin stabilizes. As he has had a cough for 3 weeks, possible consolidation of the right middle lobe on CT, elevated Pro-Supa, agree with continuing antibiotic treatment for pneumonia. Agree with azithromycin/cefepime at this time. Patient's PJP prophylaxis Bactrim is continued, Fungitell has been sent. Trend CBC daily. PG Care Time/CCT Total # of Minutes Spent Total Time Spent with Patient: Total time spent is greater than 50% in coordination of care (as documented) at patient's floor/unit and/or counseling patient: [place] [address] INT INP/OBS CARE 3/75MIN Patient Type New History Comprehensive Exam Comprehensive Medical Decision Making High Complexity Diagnoses Hypotension I95.9 Anemia D64.9 Cough R05.9 HIV (human immunodeficiency virus infection) B20 Diarrhea R19.7
[2023-05-09] MEDS ORDERED: OPTIRAY 320 500ml IV ONE (13:10)
[2023-05-09 13:45] LABS: Folate (Folic Acid),Ser orPlas 4.31 ng/ml (>5.38)
[2023-05-09 13:48] LABS: Iron < 10 mcg/dl (35-175); Unsaturated Iron Binding Cap 113 mcg/dl (155-355)
--- NOTE | 2023-05-09 13:48 | CT Scan Report ---
CT OF THE ABDOMEN AND PELVIS WITH CONTRAST CLINICAL HISTORY: Cough, hypotension, anemia. COMPARISON STUDY: None. TECHNIQUE: Following IV administration of 116 mL of Optiray, axial images of the abdomen and pelvis w ere obtained from the lung bases to the proximal femurs. Images were reviewed in the axial, sagittal, and coronal planes. IV contrast was administered without complication. Automated exposure control w as utilized for the study. A dose lowering technique was utilized adhering to the principles of JANIS Stephens. FINDINGS: Please note the chest CT will be reported separately. No pneumatosis, free air or portal ve nous gas is present. There is periportal edema. No biliary or pancreatic ductal dilatation is present . There are no hepatic lesions. Mild hepatosplenomegaly is present. A small gallstone within the uppe r neck is present. There may be a 3 mm calcified stone within the cystic duct. There is moderate gall bladder wall thickening of the gallbladder is not distended. There is no peripancreatic infiltration or fluid. There is a 3 mm right renal calculus. There is no hydronephrosis. No ureteral calculi are p resent. The appendix is normal. A small amount of abdominal and pelvic ascites is present. No fluid c ollections are present. Evaluation of the abdomen and pelvis is difficult given a paucity of intra-ab dominal fat. There is apparent wall thickening of multiple jejunal loops. Major vasculature is patent . Several mildly enlarged mesenteric lymph nodes are noted. Index node on image 150 measures 1.5 x 1. 4 cm. There is mild diffuse mesenteric stranding. No acute fractures are identified. IMPRESSION: 1. No bowel obstruction. Normal appendix. Apparent wall thickening of multiple jejunal loops. This is nonspecific and may be related to underdistention or other etiologies such as hypoalbuminemia. A non specific enteritis given mesenteric stranding could appear similar. 2. Evidence for mild volume overload with anasarca, trace ascites and periportal edema. 3. Cholelithiasis and possible stone within the cystic duct. However, gallbladder not distended. Mode rate gallbladder wall thickening which may also be related to volume overload/hydration. The findings do not suggest acute cholecystitis. 4. 3 mm right renal calculus. No ureteral calculi. No hydronephrosis. 5. A few mildly enlarged mesenteric lymph nodes. These are likely benign. A follow-up CT in 6 months to ensure stability/resolution is recommended. ACT 112: Negative or not required by law. Electronically signed by: Efrain Stevens M.D. 05/09/2023 1:46 PM
[2023-05-09 13:52] LABS: Ferritin 219.7 ng/ml (8-388)
--- NOTE | 2023-05-09 13:55 | CT Scan Report ---
CT angio chest PE protocol CT DOSE: 1057.63 mGy.cm HISTORY: 42 years-old Male with Cough, hypotension, anemia. Acute with hypotension TECHNIQUE: Multiple CTA images of the chest were obtained after the intravenous administration of 116 ml Optiray. Coronal and sagittal MIPS were obtained from the axial data set and were submitted for review. All measurements were obtained according to NASCET criteria. A dose lowering technique was u tilized adhering to the principles of ALARA. COMPARISON: CT abdomen and pelvis of same day FINDINGS: CTA: The heart is normal in size. There is no pericardial effusion. Unremarkable thoracic aorta. No pulmon heather emboli identified. Mixing artifact within the pulmonary arterial tree is suboptimal dilation of t he subsegmental branches secondary to timing. CT CHEST: Unremarkable thyroid. No pathologically enlarged lymph nodes of the chest. Trace pleural effusions. R ight-sided calcified pleural plaques. Biapical fibrotic changes. Cylindrical bronchiectasis is noted, most pronounced within the upper to mid lung zones. Reticular interstitial densities with mixed grou ndglass opacities. Biapical bleb and bulla formation. Linear areas of consolidation within the lung b ases are most pronounced in the right middle lobe and lingula.r 11 mm subpleural nodular focus in the posterior basal segment right lower lobe on image 71. Similar appearing 6 mL linear focus within the superior segment right lower lobe, image 159. Hepatosplenomegaly. Periportal edema. Generalized body wall edema. No acute fracture or destructive b one lesion identified. IMPRESSION: 1. No pulmonary emboli identified. 2. Bronchiectasis with chronic interstitial lung disease and biapical bleb and bulla formation. 3. Patchy and irregular areas of consolidation which are most pronounced within the right middle lobe and lingula with upper lung zone predominant groundglass densities may also be related to the chroni c lung disease however a superimposed infectious or inflammatory pneumonitis could appear similarly. 4. Three-month follow-up chest CT recommended to assess the aforementioned irregular areas of consoli dation. 5. Trace pleural effusions. ACT 112: Negative or not required by law. The above report was generated using voice recognition software. It may contain grammatical, syntax o r spelling errors. Electronically signed by: Rashid Nunez M.D. 05/09/2023 1:53 PM
[2023-05-09 15:00] LABS: Adenovirus PCR Not Detected (NotDetected); Bordetella parapertussis PCR Not Detected (NotDetected); Bordetella pertussis PCR Not Detected (NotDetected); Chlamydia pneumoniae PCR Not Detected (NotDetected); Coronavirus 229E PCR Not Detected (NotDetected); Coronavirus CoV-2 (COVID19)PCR Not Detected (NotDetected); Coronavirus HKU1 PCR Not Detected (NotDetected); Coronavirus NL63 PCR Not Detected (NotDetected); Coronavirus OC43PCR Not Detected (NotDetected); Human Metapneumovirus PCR Not Detected (NotDetected); Influenza A PCR Not Detected (NotDetected); Influenza B PCR Not Detected (NotDetected); Mycoplasma pneumoniae PCR Not Detected (NotDetected); Parainfluenza Virus 1 PCR Not Detected (NotDetected); Parainfluenza Virus 2 PCR Not Detected (NotDetected); Parainfluenza Virus 3 PCR Not Detected (NotDetected); Parainfluenza Virus 4 PCR Not Detected (NotDetected); Respiratory Syncytial VirusPCR Not Detected (NotDetected); Rhinovirus/Enterovirus PCR Not Detected (NotDetected)
[2023-05-09] MEDS ORDERED: ACETAMINOPHEN 325 MG TAB PO PRN (15:33)
[2023-05-09] MEDS ORDERED: VANCOMYCIN HCL 1,000 MG in SODIUM CHLORIDE 0.9% 250 ML IV SCH (16:00)
[2023-05-09] MEDS: CEFEPIME 2,000 MG in SYRINGE 0 ML IV SCH (20:16)
[2023-05-09 20:59] LABS: Hematocrit (blood only) 24.6 % (42.0-52.0); Hemoglobin 8.1 g/dl (14.0-18.0)
[2023-05-10 04:14] LABS: Basophils # (auto) 0.05 K/uL (0.00-0.20); Basophils % (auto) 0.3 %; Eosinophils % (auto) 2.5 %; Hematocrit (blood only) 26.4 % (42.0-52.0); Hemoglobin 8.5 g/dl (14.0-18.0); Immature Granulocytes # (auto) 0.12 K/uL (0.01-0.20); Immature Granulocytes % (auto) 0.8 %; Lymphocytes # (auto) 1.54 K/uL (1.20-3.40); Lymphocytes % (auto) 9.6 %; Mean Corpuscular Hemoglobin 20.9 pg (25.0-34.0); Mean Corpuscular Hgb Conc 32.2 g/dL (32.0-36.0); Monocytes # (auto) 0.71 K/uL (0.11-0.59); Monocytes % (auto) 4.4 %; Neutrophils # (auto) 13.14 K/uL (1.40-6.50); Neutrophils % (auto) 82.4 %; RDW Coefficient of Variation 19.5 % (11.5-14.5); Red Blood Count 4.06 M/uL (4.70-6.10); White Blood Count 15.96 K/ul (4.8-10.8)
[2023-05-10 04:28] LABS: Creatinine Clr Calc Pharmacy 94.3 ml/min; Est GFR (African American) 108.6 ml/min; Est GFR (Non-African American) 93.7 ml/min; Potassium 4.4 mmol/L (3.5-5.1)
[2023-05-10 05:02] LABS: Anisocytosis Present; Mean Platelet Volume 9.1 fL (9.4-12.4); Platelet Count 397 K/uL (130-400); Polychromasia 1+; Schistocytes 1+
[2023-05-10] MEDS: CEFEPIME 2,000 MG in SYRINGE 0 ML IV SCH ×3 (05:19→21:18)
--- NOTE | 2023-05-10 07:49 | Hospitalist Progress Note ---
Date of Service May 10, 2023 Assessment & Plan (1) Hypotension: Plan: Unclear etiology but may be secondary to dehydration and hypovolemia from diarrhea pt also anemia and did recieve 1 U prbc with evidence of iron deficiency takes iron daily may account for heme positive stool s (2) Anemia: Plan: Hgb 7.3 and Hct 23.8 on arrival, acute on chornic iron deficiency anemia, unlcear risk Clinically, patient denies melena and blood in stool/urine, No signs of active bleeding Fecal occult stool positive; hx of GI bleeds Protonix 40 mg IV QAM Folic acid low at 4.31 Give folic acid 1 mg IV QAM B12 is normal (3) Cough: Plan: Dry cough x1.5 months CXR showed "right lung with apparent pleural thickening" treating for gram n egative pneumonia Procalcitonin mildly elevated at 1.0 Pleurodesis x2 History of collapsed lung and intubation in 2021 CTA chest revealed no pulmonary emboli, but identified bronchiectasis with chronic interstitial lung disease Biofire negative Sputum culture pending, Blood culture pending MRSA Screen negative; vancomycin discontinued Continue cefepime 2 g every 8 hours for empiric coverage if gram negative pneumonia Continue Bactrim daily; patient is chronically immunosuppressed in a group home environment; hx of PJP PNA; will order Fungitell (4) HIV (human immunodeficiency virus infection): Plan: Dx in 2013, treatment with [employer] from [place] On bactrim; reports he is taking it consistently CD4: 4.03 CD absolute: 8.7 Continue Biktarvy (5) Diarrhea: Plan: Stool panel ordered Positive fecal occult blood Plan moderate protein calorie malnutrition Full code VTE PPx: SCDs (hold chemical DVT PPx in the setting of GI bleed rule out) N.p.o. in the setting of potential GI bleed Admission and Anticipated Discharge Date Admission Date: May 09, 2023 Subjective pt is with non productive cough, takes iron daily, may account for stool heme + Physical Exam Physical Exam: pt is with coarse breath sounds, no focal loss abd is soft and non tender Results & Data Results & Data Vital Signs (Past 12 Hours) Vital Signs Pulse Pulse Resp BP BP Pulse Ox O2 Del Method 05/10/23 07:31 101 H 24 94/49 L 96 Room Air 05/10/23 06:00 90 22 97/61 L 05/10/23 05:00 91 H 22 97/62 L 05/10/23 03:00 87 22 110/69 05/09/23 22:30 103/60 05/09/23 22:15 97/61 L 05/09/23 22:14 99/62 L 05/09/23 22:00 98/61 L 05/09/23 21:54 105/62 05/09/23 20:30 98/59 L 05/09/23 20:15 103/60 05/09/23 20:00 98/65 L 05/10/23 05:00 93 H 18 97/62 L 98 Room Air 05/10/23 03:54 87 05/10/23 03:27 91 H 18 110/69 98 Room Air 05/09/23 22:52 91 H 18 103/60 96 Room Air 05/09/23 22:02 84 16 98/61 L 96 Room Air Laboratory Results reviewed cbc reviewed chemistry stool studies pending PG Care Time/CCT Total # of Minutes Spent Total Time Spent with Patient: Total time spent is greater than 50% in coordination of care (as documented) at patient's floor/unit and/or counseling patient: Coding Level of Care Code 02862 SUB INP/OBS CARE 3/50MIN Diagnoses Hypotension I95.9 Anemia D64.9 Cough R05.9 HIV (human immunodeficiency virus infection) B20 Diarrhea R19.7
[2023-05-10] MEDS: SODIUM CHLORIDE 0.9% 1,000 ML IV SCH ×2 (08:07→22:27)
[2023-05-10] MEDS: BIKTARVY PO SCH (08:58)
[2023-05-10] MEDS: SULFAMETHOXAZOLE/TRIMETHOPRIM DS 800/160MG TAB PO SCH (08:58)
[2023-05-10] MEDS: FOLIC ACID 1 MG in SYRINGE 9.8 ML IV SCH (08:59)
[2023-05-10] MEDS ORDERED: PANTOprazole 40 MG in SYRINGE 0 ML IV SCH (09:00)
[2023-05-10] MEDS ORDERED: PANTOprazole 40 MG TAB PO SCH (09:00)
[2023-05-10] MEDS ORDERED: FERROUS SULFATE 325 MG TAB PO SCH (09:00)
[2023-05-10] MEDS ORDERED: IRON SUCROSE 200 MG in 0.9 % SODIUM CHLORIDE 100 ML IV ONE (15:00)
[2023-05-10 20:50] LABS: Adenovirus F 40/41 PCR Not Detected (NotDetected); Astrovirus PCR Not Detected (NotDetected); Campylobacter PCR Not Detected (NotDetected); Cryptosporidium PCR Not Detected (NotDetected); Cyclospora cayetanensis PCR Not Detected (NotDetected); Entamoeba histolytica PCR Not Detected (NotDetected); Enteroaggregative E.coli(EAEC) Not Detected (NotDetected); Enteropathogenic E.coli (EPEC) Not Detected (NotDetected); Enterotoxigenic E.coli (ETEC) Not Detected (NotDetected); Giardia lamblia PCR Not Detected (NotDetected); Norovirus GI/GII PCR Not Detected (NotDetected); Plesiomonas shigelloides PCR Not Detected (NotDetected); Rotavirus A PCR Not Detected (NotDetected); Salmonella PCR Not Detected (NotDetected); Sapovirus PCR Not Detected (NotDetected); Shiga-like Toxin E.coli (STEC) Not Detected (NotDetected); Shigella/Enteroinvasive E.coli Not Detected (NotDetected); Vibrio cholerae PCR Not Detected (NotDetected); Vibrio species PCR Not Detected (NotDetected); Yersinia enterocolitica PCR Not Detected (NotDetected)
--- NOTE | 2023-05-10 22:30 | Electrocardiogram Report ---
Test Reason : Blood Pressure : / mmHG Vent. Rate : 086 BPM Atrial Rate : 086 BPM P-R Int : 158 ms QRS Dur : 074 ms QT Int : 334 ms P-R-T Axes : 070 061 059 degrees QTc Int : 399 ms Normal sinus rhythm Normal ECG No previous ECGs available Confirmed by Rodney Lyles ([id number]) on 05/10/2023 10:30:25 PM Referred By: [facility] Confirmed By:Rodney Lyles
--- NOTE | 2023-05-10 22:32 | Electrocardiogram Report ---
Test Reason : Blood Pressure : / mmHG Vent. Rate : 079 BPM Atrial Rate : 079 BPM P-R Int : 164 ms QRS Dur : 078 ms QT Int : 366 ms P-R-T Axes : 076 054 055 degrees QTc Int : 419 ms Normal sinus rhythm Normal ECG When compared with ECG of 09-MAY-2023 10:19, No significant change was found Confirmed by Rodney Lyles ([id number]) on 05/10/2023 10:31:28 PM Referred By: [facility] Confirmed By:Rodney Lyles
[2023-05-11] MEDS: CEFEPIME 2,000 MG in SYRINGE 0 ML IV SCH ×2 (05:03→12:15)
[2023-05-11 06:39] LABS: Basophils # (auto) 0.06 K/uL (0.00-0.20); Basophils % (auto) 0.4 %; Eosinophils # (auto) 0.63 K/uL (0.00-0.50); Hematocrit (blood only) 23.2 % (42.0-52.0); Hemoglobin 7.5 g/dl (14.0-18.0); Immature Granulocytes # (auto) 0.13 K/uL (0.01-0.20); Immature Granulocytes % (auto) 0.8 %; Lymphocytes # (auto) 1.05 K/uL (1.20-3.40); Lymphocytes % (auto) 6.6 %; Mean Corpuscular Hemoglobin 21.2 pg (25.0-34.0); Mean Corpuscular Hgb Conc 32.3 g/dL (32.0-36.0); Mean Corpuscular Volume 65.5 fL (80.0-100.0); Monocytes # (auto) 0.58 K/uL (0.11-0.59); Monocytes % (auto) 3.7 %; Neutrophils # (auto) 13.36 K/uL (1.40-6.50); Neutrophils % (auto) 84.5 %; RDW Coefficient of Variation 18.9 % (11.5-14.5); RDW Standard Deviation 42.9 fL (36.4-46.3); Red Blood Count 3.54 M/uL (4.70-6.10); White Blood Count 15.81 K/ul (4.8-10.8)
[2023-05-11 06:53] LABS: BUN Creatinine Ratio 11.8 (10-20); Calcium 7.8 mg/dl (8.6-10.3); Creatinine Clr Calc Pharmacy 91.1 ml/min; Est GFR (African American) 106.1 ml/min; Est GFR (Non-African American) 91.5 ml/min; Potassium 3.8 mmol/L (3.5-5.1)
--- NOTE | 2023-05-11 07:16 | Hospitalist Progress Note ---
Date of Service May 11, 2023 Assessment & Plan (1) Cough: Plan: atypical Pneumonia or pneumonitis CXR showed "right lung with apparent pleural thickening" treating for gram negative pneumonia adding azithro for atypials ID consult given immune deficiency History of collapsed lung and intubation in 2021, previous pleurodesis CTA chest revealed no pulmonary emboli, but identified bronchiectasis with chronic interstitial lung disease Biofire negative Sputum culture not significant, Blood culture negative to date MRSA Screen negative; vancomycin discontinued Continue cefepime and azithromycin Continue Bactrim daily; patient is chronically immunosuppressed in a longterm environment; hx of PJP PNA; will order Fungitell (2) Hypotension: Plan: Unclear etiology , hypovolemia from diarrhea, pt also anemia and did receive 1 U prbc with evidence of iron deficiency takes iron daily may account for heme positive stools will have venofer 05/10, (3) Anemia: Plan: Hgb 7.3 on arrival, acute on chornic iron deficiency anemia, unlcear risk Clinically, patient denies melena and blood in stool/urine, No signs of active bleeding Fecal occult stool positive; hx of GI bleeds also history of oral iron hgb has been variable but stable >7 Protonix 40 mg IV bid Folic acid low at 4.31 Give folic acid 1 mg IV QAM B12 is normal (4) HIV (human immunodeficiency virus infection): Plan: Dx in 2013, treatment with [employer] from [place] On bactrim; reports he is taking it consistently CD4: 4.03 CD absolute: 8.7 sees Rose Mccray at [place] for HIV care Continue Biktarvy (5) Diarrhea: Plan: Stool panel negative for infection Positive fecal occult blood Plan moderate protein calorie malnutrition Full code VTE PPx: SCDs (hold chemical DVT PPx in the setting of GI bleed rule out) N.p.o. in the setting of potential GI bleed Admission and Anticipated Discharge Date Admission Date: May 09, 2023 Subjective Pt is still with cough low grade fever overnight, CXR with slight changes, not hypoxic, leukocytosis remains Physical Exam Physical Exam: pt is with coarse breath sounds, worse on right, no focal loss abd is soft and non tender diarrhea persists but improved Results & Data Results & Data Vital Signs (Past 12 Hours) Vital Signs Temp Pulse Pulse Resp BP Pulse Ox O2 Del Method 05/11/23 03:16 97.9 F 93 H 16 93/56 L 93 Room Air 05/10/23 20:00 Room Air 05/10/23 21:54 89 05/10/23 22:32 98.6 F 90 18 92/59 L 96 Room Air Laboratory Results reviewed cbc reviewed chemistry PG Care Time/CCT Total # of Minutes Spent Total Time Spent with Patient: Total time spent is greater than 50% in coordination of care (as documented) at patient's floor/unit and/or counseling patient: Coding Level of Care Code 90877 SUB INP/OBS CARE 2/35MIN Diagnoses Cough R05.9 Hypotension I95.9 Anemia D64.9 HIV (human immunodeficiency virus infection) B20 Diarrhea R19.7
[2023-05-11 07:28] LABS: Mean Platelet Volume 9.4 fL (9.4-12.4); Platelet Count 318 K/uL (130-400)
[2023-05-11 07:29] LABS: Anisocytosis Present; Echinocytes 2+; Hypochromasia Present
[2023-05-11] MEDS ORDERED: IRON SUCROSE 200 MG in 0.9 % SODIUM CHLORIDE 100 ML IV ONE (07:45)
[2023-05-11] MEDS: PANTOprazole 40 MG in SYRINGE 0 ML IV SCH ×2 (09:16→20:33)
[2023-05-11] MEDS: FOLIC ACID 1 MG in SYRINGE 9.8 ML IV SCH (09:17)
[2023-05-11] MEDS: SODIUM CHLORIDE 0.9% 1,000 ML IV SCH (09:56)
[2023-05-11] MEDS: SULFAMETHOXAZOLE/TRIMETHOPRIM DS 800/160MG TAB PO SCH ×2 (09:56→20:33)
[2023-05-11] MEDS: BIKTARVY PO SCH (09:56)
--- NOTE | 2023-05-11 12:15 | XRay Report ---
XR chest 1V portable CLINICAL HISTORY: Worsening cough. COMPARISON STUDY: Chest radiograph and chest CT May 09, 2023. FINDINGS: There is no pneumothorax or pleural effusion. Cardiac size is normal. Mediastinal contours are normal. Right upper lung linear densities are unchanged and favor scarring. Bilateral lower lung opacities with interstitial thickening are again noted. IMPRESSION: Interstitial thickening and mild lower lung opacities, slightly increased since prior exa m. The findings may reflect an infectious process superimposed upon chronic lung disease. ACT 112: Negative or not required by law. Electronically signed by: Efrain Stevens M.D. 05/11/2023 12:13 PM
[2023-05-11] MEDS ORDERED: AZITHROMYCIN 500 MG in DEXTROSE 5% 250 ML IV ONE (13:15)
[2023-05-11] MEDS: PROMETHAZINE HCL 12.5 MG/10 ML UDP PO PRN (13:55)
--- NOTE | 2023-05-11 17:20 | Infectious Disease Consult ---
Date of Consultation May 11, 2023 Assessment & Plan (1) Diarrhea: (2) HIV (human immunodeficiency virus infection): (3) Hypotension: (4) Cough: Plan #HIV, possible AIDS? On Biktarvy, Bactrim #Pneumonia, consolidation and GGO #Hypotension #weight loss #Currently Incarcerated AV/ABX Biktarvy Cefepime 05/10- Azithromycin 05/11- Bactrim 42 yo M with h/o of HIV Bactrim), vitamin D deficiency, and FREDIS. He presented from [facility] due to worsening cough, and hypotension in the 80/50s this morning. History of collapsed lung and intubation in 2021 (hospitalized from October - Mar 2022). Hx of multiple blood transfusions from blood in stool during this hospitalization. He denies recent hemoptysis, melena, or blood in the stool/urine. No recent changes in diet, but decreased appetite. He endorses diarrhea multiple times per night this past week; increased frequency. Dry cough ongoing x 1.5 month, but getting worse. Patient endorses mild SOB on exertion over the past few weeks. Hx of PJP pneumonia. Hypotensive at 90/61 on arrival; vitals otherwise stable. Temp 37, BP low at 90s/60s, WBC 15.9 AST/ALT 9/3, LDH 146 05/10 sputum cx light normal rosa, 05/09 blood cx NGTD, MRSA nares negative, GI stool PCR negative, RVP negative CT Chest: Patchy and irregular areas of consolidation, mostly in RML, with with upper lung zone predominant groundglass densities may also be related to the chronic lung disease however a superimposed infectious or inflammatory pn eumonitis could appear similarly. Bronchiectasis with blebs and bulla CT A/P A few mildly enlarged mesenteric lymph nodes. Apparent wall thickening of multiple jejunal loops. This is nonspecific, Cholelithiasis and possible stone GB wall thickening. Discussion: HIV patient with very low CD4 suggesting of non-compliance or immune-non responder. Would start with rechecking CD4 and viral load. If CD4 trul#HIV, possible AIDS? On Biktarvy, Bactrim #Pneumonia, consolidation and GGO #Hypotension #weight loss #Currently Incarcerated AV/ABX Biktarvy Cefepime 05/10- Azithromycin 05/11- Bactrim 42 yo M with h/o of HIV Bactrim), vitamin D deficiency, and FREDIS. He presented from [facility] due to worsening cough, and hypotension in the 80/50s this morning. History of collapsed lung and intubation in 2021 (hospitalized from October - Mar 2022). Hx of multiple blood transfusions from blood in stool during this hospitalization. He denies recent hemoptysis, melena, or blood in the stool/urine. No recent changes in diet, but decreased appetite. He endorses diarrhea multiple times per night this past week; increased frequency. Dry cough ongoing x 1.5 month, but getting worse. Patient endorses mild SOB on exertion over the past few weeks. Hx of PJP pneumonia. Hypotensive at 90/61 on arrival; vitals otherwise stable. Temp 37, BP low at 90s/60s, WBC 15.9 AST/ALT 9/3, LDH 146 05/10 sputum cx light normal rosa, 05/09 blood cx NGTD, MRSA nares negative, GI stool PCR negative, RVP negative CT Chest: Patchy and irregular areas of consolidation, mostly in RML, with with upper lung zone predominant groundglass densities may also be related to the chronic lung disease however a superimposed infectious or inflammatory pneumonitis could appear similarly. Bronchiectasis with blebs and bulla CT A/P A few mildly enlarged mesenteric lymph nodes. Apparent wall thickening of multiple jejunal loops. This is nonspecific, Cholelithiasis and possible stone GB wall thickening. Discussion: HIV patient with very low CD4 suggesting of non-compliance or immune-non responder. Would start with rechecking CD4 and viral load. If CD4 truly this low he is at risk for OIS including PJP, espec with GGO on imaging, He is also at risk for MAC, TB (current and prior incarcerations). Would consider additional fungal etiology His low Bp may be reflective of FTT or AI, the latter can be caused by fungal diseases and TB potentially. RECOMMEND HIV/AIDS -Check CD4, VL -C/W Biktarvy -Bactrim as below -May benefit for weekly azithromycin for MAC ppx (typically we dont use when on ART) Pneumonia/Cough: -TB rule out, airborne isolation with AFB smear/culture q8 hours x 3, will order QFT gold for am -PJP PCR, urine histoplasmosis, BDG, Cryptococcal ag -Can c/w Cefepime and Azithromycin for now -Would start treatment dose of Bactrim DS 2 tabs po TID to cover for PJP while awaiting ? we can hold on steroids given unclear etiology and he is not hypoxic but if workup neg and PJP further suspected then would add corticosteroids -Consideration of bronchoscopy if no improvement overnight Hypotension -Can be dt failure to thrive/dehydration but would rule out AI -Infections a/w AI include fungal and TB as above -If continues diarrhea, would check stool cx, AFB stool, stool giardia, O+Ps Please page ID through [facility] over the weekend. Dr. Elmore to start service on Sunday I spoke with Dr. Hastings ID will follow Katie Newton MD Consultation Information This patient recommendation is based on a telemedicine consult request which was completed asynchronously through chart review and information provided by the primary physician. The patient was not seen or examined today. The evaluation is consultative in nature and all patient care and treatment decisions can either be accepted or rejected by the patient's primary hospital-based treating physician using their own independent medical judgment for their patient. Client Service Representative contact information: Please call [facility] [phone]. (Phone Number For Physician Use Only) Time Spent Reviewing Chart: 31+ minutes History of Present Illness Reason for Consultation: SOB, HIV/AIDS Requesting Physician: Dr. Hastings Attending Physician: Duran Hastings MD History of Present Illness 42 yo M with h/o HIV/AIDS? (CD4 reportedly 4, VL unknown) on Biktarvy, currently incarcerated, h/o PJP in 2021 c/b pneumothorax and chest tube placment, anemia s/p transfusion, in/out of prisons PMH of HIV (on continuous Bactrim), vitamin D deficiency, and FREDIS with cough and weight loss x 1.5 months. History per EMR. Per note review, He presented from [facility] due to worsening cough, and hypotension in the 80/50s on day of admission. At that time, he denied recent hemoptysis, melena, or blood in the stool/urine. No recent changes in diet, but decreased appetite. He endorses diarrhea multiple times per night this past week; increased frequency. Dry cough ongoing x 1.5 month, but getting worse On evaluation here Temp 37, BP low at 90s/60s, WBC 15.9 AST/ALT 9/3, LDH 146 05/10 sputum cx light normal rosa, 05/09 blood cx NGTD, MRSA nares negative, GI stool PCR negative, RVP negative CT Chest: Patchy and irregular areas of consolidation, mostly in RML, with with upper lung zone predominant groundglass densities may also be related to the chronic lung disease however a superimposed infectious or inflammatory pneumonitis could appear similarly. Bronchiectasis with blebs and bulla CT A/P A few mildly enlarged mesenteric lymph nodes. Apparent wall thickening of multiple jejunal loops. This is nonspecific, Cholelithiasis and possible stone GB wall thickening. He was started on Cefepime, continued on Bactrim ppx and Biktarvy. Azithromycin added today Allergies Allergy/AdvReac Type Severity Reaction Status Date / Time No Known Allergies Allergy Unverified 05/09/23 12:19 Home Medications Medication Instructions Recorded Confirmed Type Biktarvy 1 tab PO DAILY 05/09/23 05/09/23 History cholecalciferol (vitamin D3) 25 25 mcg PO DAILY 05/09/23 05/09/23 History mcg (1,000 unit) tablet ergocalciferol (vitamin D2) 1,250 50,000 unit PO . WEEKLY ON Fridays05/09/23 05/09/23 History mcg (50,000 unit) capsule (Drisdol) ferrous sulfate 324 mg (65 mg 324 mg PO DAILY 05/09/23 05/09/23 History iron) tablet,delayed release sulfamethoxazole 800 1 tab PO DAILY 05/09/23 05/09/23 History mg-trimethoprim 160 mg tablet (Bactrim DS) Patient History Medical History HIV (human immunodeficiency virus infection) Iron deficiency anemia Vitamin D deficiency Social History Smoking Status: Never smoker Second Hand Exposure: Yes; Do You Dip or Chew Tobacco: No; Hx Alcohol Use: Yes Alcohol type: wine Hx Substance Use: No Preferred Language: Tristanian Communication Ability: Effective Executive Relations Specialist Required: No Beliefs That Will Affect Care: Cultural Cultural Beliefs: does not eat pork Current Living Situation: Other Feels Safe at Home: Yes Assistive Devices: None Results & Data Vital Signs (Past 12 Hours) Vital Signs Temp Pulse Pulse Resp BP Pulse Ox O2 Del Method 05/11/23 15:50 94 H 05/11/23 15:42 36.6 C 93 H 19 92/57 L 92 Room Air 05/11/23 11:15 36.7 C 88 19 91/51 L 95 Room Air 05/11/23 10:57 Room Air 05/11/23 08:01 36.9 C 86 18 93/52 L 97 Room Air 05/11/23 08:13 84 Laboratory Results Laboratory Results - last 48 hr 05/09/23 05/09/23 05/10/23 12:31 20:41 03:51 WBC 15.96 H RBC 4.06 L Hgb 8.1 L 8.5 L Hct 24.6 L 26.4 L MCV 65.0 L MCH 20.9 L MCHC 32.2 RDW Std Deviation 44.0 RDW Coeff of Brody 19.5 H Plt Count 397 MPV 9.1 L Immature Gran % (Auto) 0.8 Neut % (Auto) 82.4 Lymph % (Auto) 9.6 [place] % (Auto) 4.4 Eos % (Auto) 2.5 Baso % (Auto) 0.3 Neut # (Auto) 13.14 H Lymph # (Auto) 1.54 [place] # (Auto) 0.71 H Eos # (Auto) 0.40 Baso # (Auto) 0.05 Immature Gran # (Auto) 0.12 Polychromasia 1+ Hypochromasia Anisocytosis Present Echinocytes Schistocytes 1+ Sodium Potassium Chloride Carbon Dioxide Anion Gap BUN Creatinine Est Cr Clr Drug Dosing Est GFR ( Amer) Est GFR (Non-Af Amer) BUN/Creatinine Ratio Glucose Calcium Lactate Dehydrogenase Stl C. cayetanensis PCR Stool Rotavirus A PCR Stl Adenov F PCR Stool Astrovirus (PCR) Stool Campylobacter PCR Stl C. diff Tox B Gene Stool Cryptosporidium PCR Stl E.coli Shiga Tox PCR Stl Enterotoxigenic E PCR Stool EPEC (PCR) Stool EAEC (PCR) Stl E. histolytica PCR Stool Giardia Lamblia PCR Stool Salmonella PCR Stool Sapovirus (PCR) Stl P. shigelloides PCR Stl Shigella/EIEC PCR St Y.enterocolitica PCR Stool Vibrio (PCR) Stl Vibrio cholerae PCR Stl Norovirus GI/GII PCR Antibody ID Comment Crossmatch See Detail 05/10/23 05/10/23 05/10/23 03:51 Unknown Unknown WBC RBC Hgb Hct MCV MCH MCHC RDW Std Deviation RDW Coeff of Brody Plt Count MPV Immature Gran % (Auto) Neut % (Auto) Lymph % (Auto) [place] % (Auto) Eos % (Auto) Baso % (Auto) Neut # (Auto) Lymph # (Auto) [place] # (Auto) Eos # (Auto) Baso # (Auto) Immature Gran # (Auto) Polychromasia Hypochromasia Anisocytosis Echinocytes Schistocytes Sodium 136 Potassium 4.4 Chloride 108 H Carbon Dioxide 25 Anion Gap 3 BUN 9 Creatinine 1.00 Est Cr Clr Drug Dosing 94.3 Est GFR ( Amer) 108.6 Est GFR (Non-Af Amer) 93.7 BUN/Creatinine Ratio 9.0 L Glucose 93 Calcium 8.0 L Lactate Dehydrogenase Stl C. cayetanensis PCR Not Detected Stool Rotavirus A PCR Not Detected Stl Adenov F 40/41 PCR Not Detected Stool Astrovirus (PCR) Not Detected Stool Campylobacter PCR Not Detected Stl C. diff Tox B Gene Negative Cdiff Gene Stool Cryptosporidium PCR Not Detected Stl E.coli Shiga Tox PCR Not Detected Stl Enterotoxigenic E PCR Not Detected Stool EPEC (PCR) Not Detected Stool EAEC (PCR) Not Detected Stl E. histolytica PCR Not Detected Stool Giardia Lamblia PCR Not Detected Stool Salmonella PCR Not Detected Stool Sapovirus (PCR) Not Detected Stl P. shigelloides PCR Not Detected Stl Shigella/EIEC PCR Not Detected St Y.enterocolitica PCR Not Detected Stool Vibrio (PCR) Not Detected Stl Vibrio cholerae PCR Not Detected Stl Norovirus GI/GII PCR Not Detected Antibody ID Comment Crossmatch 05/11/23 05/11/23 05:46 05:46 WBC 15.81 H RBC 3.54 L Hgb 7.5 L Hct 23.2 L MCV 65.5 L MCH 21.2 L MCHC 32.3 RDW Std Deviation 42.9 RDW Coeff of Brody 18.9 H Plt Count 318 MPV 9.4 Immature Gran % (Auto) 0.8 Neut % (Auto) 84.5 Lymph % (Auto) 6.6 [place] % (Auto) 3.7 Eos % (Auto) 4.0 Baso % (Auto) 0.4 Neut # (Auto) 13.36 H Lymph # (Auto) 1.05 L [place] # (Auto) 0.58 Eos # (Auto) 0.63 H Baso # (Auto) 0.06 Immature Gran # (Auto) 0.13 Polychromasia Hypochromasia Present Anisocytosis Present Echinocytes 2+ Schistocytes Sodium 134 L Potassium 3.8 Chloride 107 Carbon Dioxide 21 Anion Gap 6 BUN 12 Creatinine 1.02 Est Cr Clr Drug Dosing 91.1 Est GFR ( Amer) 106.1 Est GFR (Non-Af Amer) 91.5 BUN/Creatinine Ratio 11.8 Glucose 72 Calcium 7.8 L Lactate Dehydrogenase 146 Stl C. cayetanensis PCR Stool Rotavirus A PCR Stl Adenov F 40/41 PCR Stool Astrovirus (PCR) Stool Campylobacter PCR Stl C. diff Tox B Gene Stool Cryptosporidium PCR Stl E.coli Shiga Tox PCR Stl Enterotoxigenic E PCR Stool EPEC (PCR) Stool EAEC (PCR) Stl E. histolytica PCR Stool Giardia Lamblia PCR Stool Salmonella PCR Stool Sapovirus (PCR) Stl P. shigelloides PCR Stl Shigella/EIEC PCR St Y.enterocolitica PCR Stool Vibrio (PCR) Stl Vibrio cholerae PCR Stl Norovirus GI/GII PCR Antibody ID Comment Crossmatch Medications Administered Current Inpatient Medications Acetaminophen (Acetaminophen 325 Mg Tab) 650 mg PO Q4H PRN PRN Reason: pain (1-4) /fever Stop: 06/08/23 15:32 Bictegravir/Emtricitabine/Tenofovir (Biktarvy) 1 each PO DAILY JANES; Protocol Stop: 06/09/23 08:59 Last Admin: 05/11/23 09:56 Dose: 1 each Guaifenesin/Codeine Phosphate (Guaifenesin/Codeine 200mg/20mg 10ml Udc) 10 ml PO Q6H PRN PRN Reason: Cough Stop: 06/10/23 09:38 Last Admin: 05/11/23 09:56 Dose: 10 ml Cefepime HCl 2,000 mg/ Syringe 20 mls @ 5 mls/min IV Q8H JANES; Protocol Stop: 05/11/23 20:59 Last Admin: 05/11/23 12:15 Dose: 5 mls/min Folic Acid 1 mg/ Syringe 10 mls @ 5 mls/min IV QAM JANES Stop: 06/09/23 08:59 Last Admin: 05/11/23 09:17 Dose: 5 mls/min Sodium Chloride (Nss) 1,000 mls @ 80 mls/hr IV .[id number] [facility] Stop: 06/09/23 07:59 Last Admin: 05/11/23 09:56 Dose: 80 mls/hr Pantoprazole Sodium 40 mg/ (Syringe) 10 mls @ 5 mls/min IV BID JANES Stop: 06/10/23 08:59 Last Admin: 05/11/23 09:16 Dose: 5 mls/min Azithromycin 500 mg/ Dextrose 255 mls @ 125 mls/hr IV DAILY [facility] Stop: 05/19/23 08:59 Menthol (Cough Drop (Sugar Free) Tunde 24 Tunde/1 Box) 1 tunde BUCCAL UD PRN PRN Reason: Sore Throat Stop: 06/09/23 10:20 Promethazine HCl (Promethazine Hcl 12.5 Mg/10 Ml Udp) 12.5 mg PO Q6H PRN PRN Reason: Cough Stop: 06/10/23 13:03 Last Admin: 05/11/23 13:55 Dose: 12.5 mg Trimethoprim/Sulfamethoxazole (Sulfamethoxazole/Trimethoprim Ds 800/160mg Tab) 1 tab PO Q12 JANES Stop: 06/10/23 20:59
[2023-05-12] MEDS: SODIUM CHLORIDE 0.9% 1,000 ML IV SCH ×3 (02:13→23:35)
[2023-05-12] MEDS: PROMETHAZINE HCL 12.5 MG/10 ML UDP PO PRN ×2 (06:04→19:42)
[2023-05-12 07:59] LABS: Basophils # (auto) 0.03 K/uL (0.00-0.20); Basophils % (auto) 0.2 %; Eosinophils # (auto) 0.65 K/uL (0.00-0.50); Eosinophils % (auto) 4.3 %; Hematocrit (blood only) 25.3 % (42.0-52.0); Hemoglobin 8.2 g/dl (14.0-18.0); Immature Granulocytes # (auto) 0.16 K/uL (0.01-0.20); Immature Granulocytes % (auto) 1.1 %; Lymphocytes # (auto) 1.26 K/uL (1.20-3.40); Lymphocytes % (auto) 8.3 %; Mean Corpuscular Hemoglobin 21.2 pg (25.0-34.0); Mean Corpuscular Hgb Conc 32.4 g/dL (32.0-36.0); Mean Corpuscular Volume 65.4 fL (80.0-100.0); Monocytes # (auto) 0.57 K/uL (0.11-0.59); Monocytes % (auto) 3.7 %; Neutrophils # (auto) 12.55 K/uL (1.40-6.50); Neutrophils % (auto) 82.4 %; RDW Coefficient of Variation 19.9 % (11.5-14.5); RDW Standard Deviation 44.8 fL (36.4-46.3); Red Blood Count 3.87 M/uL (4.70-6.10); White Blood Count 15.22 K/ul (4.8-10.8)
[2023-05-12 08:05] LABS: Mean Platelet Volume 9.2 fL (9.4-12.4); Platelet Count 311 K/uL (130-400)
[2023-05-12 08:23] LABS: Calcium 7.7 mg/dl (8.6-10.3); Creatinine Clr Calc Pharmacy 92.9 ml/min; Est GFR (African American) 108.6 ml/min; Est GFR (Non-African American) 93.7 ml/min; Potassium 3.6 mmol/L (3.5-5.1)
[2023-05-12] MEDS: AZITHROMYCIN 500 MG in DEXTROSE 5% 250 ML IV SCH (08:30)
[2023-05-12] MEDS: BIKTARVY PO SCH (08:31)
[2023-05-12] MEDS: FOLIC ACID 1 MG in SYRINGE 9.8 ML IV SCH (08:31)
[2023-05-12] MEDS: PANTOprazole 40 MG in SYRINGE 0 ML IV SCH ×2 (08:32→21:27)
[2023-05-12] MEDS: SULFAMETHOXAZOLE/TRIMETHOPRIM DS 800/160MG TAB PO SCH ×3 (08:32→21:28)
[2023-05-12 08:34] LABS: Echinocytes 2+; Hypochromasia Present; Ovalocytes 1+; Polychromasia 1+; Target Cells 1+
[2023-05-12] MEDS ORDERED: SULFAMETHOXAZOLE/TRIMETHOPRIM DS 800/160MG TAB PO SCH (09:00)
--- NOTE | 2023-05-12 17:24 | Hospitalist Progress Note ---
Date of Service May 12, 2023 Assessment & Plan (1) Cough: Plan: atypical Pneumonia or pneumonitis CXR showed "right lung with apparent pleural thickening" treating for gram negative pneumonia adding azithro for atypials ID consult given immune deficiency wishes to rule out tuberculosis, stool for Giardia is also pending as well as PJP PCR History of collapsed lung and intubation in 2021, previous pleurodesis CTA chest revealed no pulmonary emboli, but identified bronchiectasis with chronic interstitial lung disease Biofire negative Sputum culture not significant, Blood culture negative to date MRSA Screen negative; vancomycin discontinued Continue cefepime and azithromycin Continue Bactrim increase to treatment doses with hx of PJP PNA; pending Fungitell and PJP PCR (2) Hypotension: Plan: Unclear etiology , hypovolemia from diarrhea, pt also anemia and did receive 1 U prbc with evidence of iron deficiency takes iron daily may account for heme positive stools will have venofer 05/10,, (3) Anemia: Plan: Hgb 7.3 on arrival, acute on chornic iron deficiency anemia, unlcear risk Clinically, patient denies melena and blood in stool/urine, No signs of active bleeding Fecal occult stool positive; hx of GI bleeds also history of oral iron hgb has been variable but stable >7 Protonix 40 mg IV bid Folic acid low at 4.31 Give folic acid 1 mg IV QAM B12 is normal profound iron deficiency supplementing iron as above (4) HIV (human immunodeficiency virus infection): Plan: Dx in 2013, treatment with Insightera from [place] On bactrim ds tid; reports he is taking it consistently CD4: 4.03 CD absolute: 8.7 repeat cell count levels pending sees Rose Mccray at [place] for HIV care Continue Biktarvy (5) Diarrhea: Plan: Stool panel negative for infection Positive fecal occult blood Plan moderate protein calorie malnutrition Full code VTE PPx: SCDs (hold chemical DVT PPx in the setting of GI bleed rule out) N.p.o. in the setting of potential GI bleed Admission and Anticipated Discharge Date Admission Date: May 09, 2023 Subjective pt has noticeably less coughing during my visit, is a bit put back by the respiratory isolation during TB testing, explained this is protocol and that CXR is not typical Physical Exam Physical Exam: lung exam is improved still with some rhonchi R>L abd is soft and non tender diarrhea persists but improved Results & Data Results & Data Vital Signs (Past 12 Hours) Vital Signs Temp Pulse Pulse Resp BP Pulse Ox O2 Del Method 05/12/23 16:26 91 H 05/12/23 14:36 97.8 F 85 16 87/57 L 99 Room Air 05/12/23 08:00 Room Air 05/12/23 08:26 97.2 F L 91 H 18 91/48 L 99 Room Air 05/12/23 07:46 80 Laboratory Results reviewed CBC with differential reviewed chemistry cortisol checked appropriate PG Care Time/CCT Total # of Minutes Spent Total Time Spent with Patient: Total time spent is greater than 50% in coordination of care (as documented) at patient's floor/unit and/or counseling patient: Coding Level of Care Code 73487 SUB INP/OBS CARE 3/50MIN Diagnoses Cough R05.9 Hypotension I95.9 Anemia D64.9 HIV (human immunodeficiency virus infection) B20 Diarrhea R19.7
[2023-05-12] MEDS ORDERED: IRON SUCROSE 200 MG in 0.9 % SODIUM CHLORIDE 100 ML IV ONE (19:00)
[2023-05-13] MEDS: COUGH DROP (SUGAR FREE) LOZ 24 LOZ/1 BOX BUCCAL PRN (05:27)
[2023-05-13] MEDS: AZITHROMYCIN 500 MG in DEXTROSE 5% 250 ML IV SCH (08:13)
[2023-05-13] MEDS: BIKTARVY PO SCH (08:13)
[2023-05-13] MEDS: FOLIC ACID 1 MG in SYRINGE 9.8 ML IV SCH (08:14)
[2023-05-13] MEDS: SULFAMETHOXAZOLE/TRIMETHOPRIM DS 800/160MG TAB PO SCH ×3 (08:14→20:09)
[2023-05-13] MEDS: PANTOprazole 40 MG in SYRINGE 0 ML IV SCH ×2 (08:14→20:09)
[2023-05-13] MEDS ORDERED: LOPERAMIDE HCL 2 MG CAP PO STA ×2 (09:45→20:30)
[2023-05-13] MEDS: SODIUM CHLORIDE 0.9% 1,000 ML IV SCH ×2 (10:32→20:09)
--- NOTE | 2023-05-13 13:01 | Hospitalist Progress Note ---
Date of Service May 13, 2023 Assessment & Plan (1) Cough: Plan: atypical Pneumonia or pneumonitis seems of improved after initiating azithromycin CXR showed "right lung with apparent pleural thickening" treating for gram negative pneumonia adding azithro for atypials ID consult given immune deficiency wishes to rule out tuberculosis, stool for Giardia is also pending as well as PJP PCR History of collapsed lung and intubation in 2021, previous pleurodesis CTA chest revealed no pulmonary emboli, but identified bronchiectasis with chronic interstitial lung disease Biofire negative Sputum culture not significant, Blood culture negative to date MRSA Screen negative; vancomycin discontinued Continue cefepime and azithromycin Continue Bactrim increase to treatment doses with hx of PJP PNA; pending Fungitell and PJP PCR (2) Hypotension: Plan: Unclear etiology , hypovolemia from diarrhea, pt also anemia and did receive 1 U prbc with evidence of iron deficiency takes iron daily may account for heme positive stools will have venofer 05/10,, (3) Anemia: Plan: Hgb 7.3 on arrival, acute on chornic iron deficiency anemia, unlcear risk Clinically, patient denies melena and blood in stool/urine, No signs of active bleeding Fecal occult stool positive; hx of GI bleeds also history of oral iron hgb has been variable but stable >7 Protonix 40 mg IV bid Folic acid low at 4.31 Give folic acid 1 mg IV QAM B12 is normal profound iron deficiency supplementing iron as above (4) HIV (human immunodeficiency virus infection): Plan: Dx in 2013, treatment with Ekotrope from [place] On bactrim ds tid; reports he is taking it consistently CD4: 4.03 CD absolute: 8.7 repeat cell count levels pending sees Rose Mccray at [place] for HIV care Continue Biktarvy (5) Diarrhea: Plan: Stool panel negative for infection Positive fecal occult blood Plan moderate protein calorie malnutrition Full code VTE PPx: SCDs (hold chemical DVT PPx in the setting of GI bleed rule out) N.p.o. in the setting of potential GI bleed Admission and Anticipated Discharge Date Admission Date: May 09, 2023 Subjective pt has noticeably less coughing during my visit again on 05/13 no new complaints Physical Exam Physical Exam: lung exam is improved still with some rhonchi R>L abd is soft and non tender diarrhea persists but improved Results & Data Results & Data Vital Signs (Past 12 Hours) Vital Signs Temp Pulse Pulse Resp BP Pulse Ox O2 Del Method 05/13/23 12:31 97.5 F L 90 18 97/61 L 98 Room Air 05/13/23 08:30 Room Air 05/13/23 10:47 96 H 05/13/23 08:21 98.6 F 101 H 18 94/61 L 98 Room Air 05/13/23 03:00 98.4 F 96 H 21 97/56 L 94 Room Air Laboratory Results send out laboratories are still pending including Fungitell gold QuantiFERON and pneumocystis PCR PG Care Time/CCT Total # of Minutes Spent Total Time Spent with Patient: Total time spent is greater than 50% in coordination of care (as documented) at patient's floor/unit and/or counseling patient: Coding Level of Care Code 94072 SUB INP/OBS CARE 2/35MIN Diagnoses Cough R05.9 Hypotension I95.9 Anemia D64.9 HIV (human immunodeficiency virus infection) B20 Diarrhea R19.7
[2023-05-13 14:32] LABS: Quantiferon Mitogen-NIL 1.02 IU/mL; Quantiferon NIL 0.05 IU/mL; Quantiferon TB Gold Plus NEGATIVE (NEGATIVE); Quantiferon TB2-NIL 0.01 IU/mL
[2023-05-13] MEDS: PROMETHAZINE HCL 12.5 MG/10 ML UDP PO PRN (18:07)
[2023-05-13 20:42] LABS: Fungitell (1-3)-B-D-Glucan <31 pg/mL
[2023-05-14] MEDS: SODIUM CHLORIDE 0.9% 1,000 ML IV SCH ×2 (06:13→18:22)
[2023-05-14 06:25] LABS: Hematocrit (blood only) 21.7 % (42.0-52.0); Hemoglobin 7.1 g/dl (14.0-18.0); Mean Corpuscular Hemoglobin 21.3 pg (25.0-34.0); Mean Corpuscular Hgb Conc 32.7 g/dL (32.0-36.0); Mean Corpuscular Volume 65.2 fL (80.0-100.0); Mean Platelet Volume 8.9 fL (9.4-12.4); Platelet Count 264 K/uL (130-400); RDW Coefficient of Variation 20.5 % (11.5-14.5); Red Blood Count 3.33 M/uL (4.70-6.10); White Blood Count 14.95 K/ul (4.8-10.8)
[2023-05-14 06:45] LABS: BUN Creatinine Ratio 9.5 (10-20); Calcium 7.4 mg/dl (8.6-10.3); Creatinine Clr Calc Pharmacy 97.2 ml/min; Est GFR (African American) 115.6 ml/min; Est GFR (Non-African American) 99.7 ml/min; Potassium 3.5 mmol/L (3.5-5.1)
[2023-05-14] MEDS: FOLIC ACID 1 MG in SYRINGE 9.8 ML IV SCH (08:20)
[2023-05-14] MEDS: AZITHROMYCIN 500 MG in DEXTROSE 5% 250 ML IV SCH (08:20)
[2023-05-14] MEDS: BIKTARVY PO SCH (08:20)
[2023-05-14] MEDS: PROMETHAZINE HCL 12.5 MG/10 ML UDP PO PRN ×2 (08:21→20:19)
[2023-05-14] MEDS: PANTOprazole 40 MG in SYRINGE 0 ML IV SCH ×2 (08:21→20:18)
[2023-05-14] MEDS: SULFAMETHOXAZOLE/TRIMETHOPRIM DS 800/160MG TAB PO SCH ×3 (08:21→20:19)
--- NOTE | 2023-05-14 12:21 | Hospitalist Progress Note ---
Date of Service May 14, 2023 Assessment & Plan (1) Cough: Plan: atypical Pneumonia or pneumonitis cefepime and azithromycin covering gram neg and atypical bacteria CXR showed "right lung with apparent pleural thickening" treating for gram negative pneumonia adding azithro for atypials ID consult given immune deficiency did send Quanterferon gold which resulted negative and suspicion of tuberculosis has been ruled out , stool for Giardia is also pending as well as PJP PCR History of collapsed lung and intubation in 2021, previous pleurodesis CTA chest revealed no pulmonary emboli, but identified bronchiectasis with chronic interstitial lung disease Biofire negative Sputum culture not significant, Blood culture negative to date MRSA Screen negative; vancomycin discontinued Continue cefepime and azithromycin Continue Bactrim increase to treatment doses with hx of PJP PNA; negative Fungitell and pening PJP PCR pulm recc ECHO pending (2) Hypotension: Plan: Unclear etiology , hypovolemia from diarrhea, pt also anemia and did receive 1 U prbc with evidence of iron deficiency takes iron daily may account for heme positive stools will have venofer 05/10,, 200 mg each dose (3) Anemia: Plan: microcytic anemia on arrival, acute on chronic iron deficiency anemia, unclear risk Clinically, patient denies melena and blood in stool/urine, No signs of active bleeding Fecal occult stool positive; hx of GI bleeds also history of oral iron hgb has been variable but stable >7 Protonix 40 mg IV bid Folic acid low at 4.31 Give folic acid 1 mg IV QAM B12 is normal profound iron deficiency supplementing iron as above spoke to hematology economic manager, check haptoglobin, retic, hemoglobin electrophoresi s, peripheral smear per pulm recc check cosyntropin test (4) HIV (human immunodeficiency virus infection): Plan: Dx in 2013, treatment with Nefsis from [facility] On bactrim ds tid; reports he is taking it consistently CD4: 4.03 CD absolute: 8.7 repeat cell count levels pending sees Rose Mccray at [place] for HIV care Continue Biktarvy (5) Diarrhea: Plan: Stool panel negative for infection Positive fecal occult blood Plan moderate protein calorie malnutrition Full code VTE PPx: SCDs (hold chemical DVT PPx in the setting of GI bleed rule out) N.p.o. in the setting of potential GI bleed Admission and Anticipated Discharge Date Admission Date: May 09, 2023 Subjective pt with unremitting cough, persistent microcytic anemia, and diarrhea Physical Exam Physical Exam: lung exam is improved still with some rhonchi R>L abd is soft and non tender diarrhea persists but improved Results & Data Results & Data Vital Signs (Past 12 Hours) Vital Signs Temp Pulse Pulse Resp BP Pulse Ox O2 Del Method 05/14/23 11:50 98.6 F 98 H 17 95/62 L 92 Room Air 05/14/23 08:00 Room Air 05/14/23 08:15 98.7 F 96 H 18 99/69 L 99 Room Air 05/14/23 07:13 88 05/14/23 04:10 91 H 95/53 L 05/14/23 03:23 98.6 F 92 H 16 93 Room Air Laboratory Results review CBC review prp PG Care Time/CCT Total # of Minutes Spent Total Time Spent with Patient: Total time spent is greater than 50% in coordination of care (as documented) at patient's floor/unit and/or counseling patient: Coding Level of Care Code 05443 SUB INP/OBS CARE 3/50MIN Diagnoses Cough R05.9 Hypotension I95.9 Anemia D64.9 HIV (human immunodeficiency virus infection) B20 Diarrhea R19.7
--- NOTE | 2023-05-14 14:32 | Infectious Disease Progress Nt ---
Date of Service May 14, 2023 Assessment & Plan (1) Diarrhea: (2) HIV (human immunodeficiency virus infection): (3) Hypotension: (4) Cough: Plan 42 yo M with h/o of HIV Bactrim), vitamin D deficiency, and FREDIS. He presented from [facility] due to worsening cough, and hypotension in the 80/50s this morning. History of collapsed lung and intubation in 2021 (hospitalized from October - Mar 2022). Hx of multiple blood transfusions from blood in stool during this hospitalization. He denies recent hemoptysis, melena, or blood in the stool/urine. No recent changes in diet, but decreased appetite. He endorses diarrhea multiple times per night this past week; increased frequency. Dry cough ongoing x 1.5 month, but getting worse. Patient endorses mild SOB on exertion over the past few weeks. Hx of PJP pneumonia. Hypotensive at 90/61 on arrival; vitals otherwise stable. Temp 37, BP low at 90s/60s, WBC 15.9 AST/ALT 9/3, LDH 146 05/10 sputum cx light normal rosa, 05/09 blood cx NGTD, MRSA nares negative, GI stool PCR negative, RVP negative CT Chest: Patchy and irregular areas of consolidation, mostly in RML, with with upper lung zone predominant groundglass densities may also be related to the chronic lung disease however a superimposed infectious or inflammatory pneumonitis could appear similarly. Bronchiectasis with blebs and bulla CT A/P A few mildly enlarged mesenteric lymph nodes. Apparent wall thickening of multiple jejunal loops. This is nonspecific, Cholelithiasis and possible stone GB wall thickening. #HIV/AIDS On Biktarvy, Bactrim #Pneumonia, consolidation and GGO #Hypotension #weight loss #Currently Incarcerated AV/ABX Biktarvy Cefepime 05/10- Azithromycin 05/11- Bactrim Discussion: HIV patientCD4 ( 87, 01/2023) #Pneumonia, consolidation and GGO #Hypotension #weight loss #Currently Incarcerated AV/ABX Biktarvy Cefepime 05/10- Azithromycin 05/11- Bactrim Discussion: HIV patient Cd4 < 100 in 01/2023 suggesting non-compliance or immune-non responder. FU CD4 and viral load. If CD4 truly this low he is at risk for OIS including PJP, espec with GGO on imaging, He is also at risk for MAC, TB (current and prior incarcerations). Would consider additional fungal etiology His low Bp may be reflective of FTT or AI, the latter can be caused by fungal diseases and TB potentially. Hypotension can be dt failure to thrive/dehydration but would rule out OIs -Infections a/w AI include fungal and TB His bd glucan is < 31 making PJP less likely. Although QFN negatibe, this does not mean much if his CD4 is low and he cant mount a response. RECOMMEND -FU CD4, Vl L -C/W Biktarvy -Bactrim as below -TB rule out, airborne isolation with AFB smear/culture q8 hours x 3, -PJP PCR, urine histoplasmosis, Cryptococcal ag -Can c/w Cefepime and Azithromycin treatment dose of Bactrim DS 2 tabs po TID to cover for PJP while awaiting studies we can hold on steroids given unclear etiology and he is not hypoxic and bdg not impressive. - stool cx, AFB stool, stool giardia, O+Ps if diarrhea ID will continue to follow. Aisha Elmore MD, MPH Infectious Disease ID Connect [facility], ID Division Call [phone] with questions Admission and Anticipated Discharge Date Admission Date: May 09, 2023 Subjective This patient recommendation is based on a telemedicine consult request which was completed asynchronously through chart review and information provided by the primary physician. The patient was not seen or examined today. The evaluation is consultative in nature and all patient care and treatment decisions can either be accepted or rejected by the patient's primary hospital-based treating physician using their own independent medical judgment for their patient. Time Spent Reviewing Chart: 21 - 30 minutes Beta d glucan <31 QFFN neg , CD4, VL P Results & Data Vital Signs (Past 12 Hours) Vital Signs Temp Pulse Pulse Resp BP Pulse Ox O2 Del Method 05/14/23 11:50 37.0 C 98 H 17 95/62 L 92 Room Air 05/14/23 08:00 Room Air 05/14/23 08:15 37.1 C 96 H 18 99/69 L 99 Room Air 05/14/23 07:13 88 05/14/23 04:10 91 H 95/53 L 05/14/23 03:23 37.0 C 92 H 16 93 Room Air Laboratory Results Laboratory Results - last 48 hr 05/09/23 05/11/23 05/14/23 20:41 18:35 05:54 WBC 14.95 H RBC 3.33 L Hgb 7.1 L Hct 21.7 L MCV 65.2 L MCH 21.3 L MCHC 32.7 RDW Std Deviation 46.0 RDW Coeff of Brody 20.5 H Plt Count 264 MPV 8.9 L Sodium Potassium Chloride Carbon Dioxide Anion Gap BUN Creatinine Est Cr Clr Drug Dosing Est GFR ( Amer) Est GFR (Non-Af Amer) BUN/Creatinine Ratio Glucose Calcium TB Test (QFT) Gold Plus NEGATIVE TB Test (QFT) Nil 0.05 TB Test Mitogen - Nil 1.02 TB Test Ag - Nil 1 0.00 TB Test Ag - Nil 2 0.01 Beta-(1,3)-D-Glucan <31 B-(1,3)-D-Glucan Intrp NEGATIVE 05/14/23 05:54 WBC RBC Hgb Hct MCV MCH MCHC RDW Std Deviation RDW Coeff of Brody Plt Count MPV Sodium 137 Potassium 3.5 Chloride 111 H Carbon Dioxide 22 Anion Gap 4 BUN 9 Creatinine 0.95 Est Cr Clr Drug Dosing 97.2 Est GFR ( Amer) 115.6 Est GFR (Non-Af Amer) 99.7 BUN/Creatinine Ratio 9.5 L Glucose 85 Calcium 7.4 L TB Test (QFT) Gold Plus TB Test (QFT) Nil TB Test Mitogen - Nil TB Test Ag - Nil 1 TB Test Ag - Nil 2 Beta-(1,3)-D-Glucan B-(1,3)-D-Glucan Intrp Diagnostic Findings Microbiology 05/09/23 11:39 Blood Aerobic Blood Culture - Final No growth in Aerobic bottle after 5 days. 05/09/23 11:39 Blood Anaerobic Blood Culture - Final 05/09/23 11:20 Blood Aerobic Blood Culture - Final No growth in Aerobic bottle after 5 days. 05/09/23 11:20 Blood Anaerobic Blood Culture - Final No growth in Anaerobic bottle after 5 days. 05/10/23 16:16 Sputum, Expectorated Gram Stain - Final 05/10/23 16:16 Sputum, Expectorated Sputum Culture - Final Moderate normal rosa. Medications Administered Home Medications Medication Instructions Recorded Confirmed Last Taken Biktarvy 1 tab PO DAILY 05/09/23 05/09/23 Unknown cholecalciferol (vitamin D3) 25 25 mcg PO DAILY 05/09/23 05/09/23 Unknown mcg (1,000 unit) tablet ergocalciferol (vitamin D2) 1,250 50,000 unit PO . WEEKLY ON Fridays05/09/23 05/09/23 Unknown mcg (50,000 unit) capsule (Drisdol) ferrous sulfate 324 mg (65 mg 324 mg PO DAILY 05/09/23 05/09/23 Unknown iron) tablet,delayed release sulfamethoxazole 800 1 tab PO DAILY 05/09/23 05/09/23 Unknown mg-trimethoprim 160 mg tablet (Bactrim DS) Active Medications Generic Name Dose Route Start Last Admin Trade Name Freq PRN Reason Stop Dose Admin Bictegravir/Emtricitabine/Tenofovir 1 each 05/10/23 09:00 05/14/23 08:20 Biktarvy PO 06/09/23 08:59 1 each DAILY JANES Administration Protocol Guaifenesin/Codeine Phosphate 10 ml 05/11/23 09:39 05/13/23 17:00 Guaifenesin/Codeine 200mg/20mg 10ml Udc PO 06/10/23 09:38 10 ml Q6H PRN Administration Cough Folic Acid 1 mg/ Syringe 10 mls @ 5 mls/min 05/10/23 09:00 05/14/23 08:20 IV 06/09/23 08:59 5 mls/min QAM JANES Administration Sodium Chloride 1,000 mls @ 100 mls/hr 05/10/23 08:00 05/14/23 06:13 Nss IV 06/09/23 07:59 100 mls/hr .Q10H JANES Administration Pantoprazole Sodium 40 mg/ 10 mls @ 5 mls/min 05/11/23 09:00 05/14/23 08:21 Syringe IV 06/10/23 08:59 5 mls/min BID JANES Administration Azithromycin 500 mg/ Dextrose 255 mls @ 125 mls/hr 05/12/23 09:00 05/14/23 10:26 IV 05/19/23 08:59 Infused DAILY JANES Infusion Menthol 1 tunde 05/10/23 10:21 05/13/23 05:27 Cough Drop (Sugar Free) Tunde 24 Tunde/1 Box BUCCAL 06/09/23 10:20 1 tnude UD PRN Administration Sore Throat Promethazine HCl 12.5 mg 05/11/23 13:04 05/14/23 08:21 Promethazine Hcl 12.5 Mg/10 Ml Udp PO 06/10/23 13:03 12.5 mg Q6H PRN Administration Cough Trimethoprim/Sulfamethoxazole 1 tab 05/12/23 14:00 05/14/23 13:56 Sulfamethoxazole/Trimethoprim Ds 800/160mg Tab PO 06/11/23 13:59 1 tab TID JANES Administration
[2023-05-14] MEDS: LOPERAMIDE HCL 2 MG CAP PO PRN (14:46)
--- NOTE | 2023-05-14 15:26 | Pulmonary Consultation ---
Date of Consultation May 14, 2023 Assessment & Plan (1) Abnormal CT scan, chest: Contrast-enhanced CT chest personally reviewed from 05/09/2023 revealing trace bilateral effusions, calcified pleural plaques, biapical fibrotic changes and cylindrical bronchiectasis. Patient also with biapical blebs. Patchy irregular areas of consolidation noted in the lingula, right middle lobe and upper lung vuong. No prior chest imaging is available for review. Please obtain any prior CT chest or chest x-ray imaging from outside facility. Differential is broad especially considering his HIV status. CD4 count is pending. Infectious etiologies remain high in the differential. Invasive fungal infection seems less likely given the unremarkable beta D glucan. Invasive pulmonary aspergillosis can present with nodular infiltrates in immunocompromised patients, but with a low BDG that remains unlikely. CD4 count will also be telling, because if this is unremarkable, then that makes opportunistic infection less likely. QuantiFERON gold was negative. However, sputum AFB cultures do not appear to have been obtained. AFB sputum x3 ordered. Bronchoscopy can be considered to rule out infectious etiology. Other possibilities include cryptogenic organizing pneumonia which would require a lengthy course of systemic corticosteroids. Would defer bronchoscopy at this time until hypotension and severe anemia is improved or resolved. Recommend obtaining echocardiogram. (2) HIV (human immunodeficiency virus infection): CD4 count pending. Patient on Biktarvy. Appreciate ID consult (3) Hypotension: Etiology is unclear, but relative adrenal deficiency certainly remains high in the differential given the patient's low normal cortisol level. Recommend ACTH stim test and potentially inpatient endocrinology consult (4) Cough: Multifactorial and possibly related to infectious etiology. Suspect patient has element of COPD given prior tobacco abuse and emphysema noted on CT chest. Plan Thank you for the consult. I discussed the case over the phone with the hospital service. I reviewed the electronic medical record and obtained history from the patient. Pulmonary will continue to follow along with you. History of Present Illness Reason for Consultation: Abnormal CT chest persistent cough Attending Physician: Duran Hastings MD History of Present Illness 42-year-old male with a history of HIV on Bactrim, vitamin D deficiency and intravenous drug abuse who presented from [facility] due to cough and hypotension. Pulmonary was consulted due to an abnormal CT chest. Patient was apparently intubated last year or acute respiratory failure and sustained a pneumothorax. He also had PJP at that time. QuantiFERON gold checked earlier this admission resulted as being negative. PJP PCR in the sputum is pending. Beta D glucan was unremarkable. Patient remains on cefepime and azithromycin. Infectious diseases following the patient and recommending bronchoscopy. He has also been persistently hypotensive this admission with systolics in the 90s. Labs are significant for leukocytosis of 15,000, severe anemia with a hemoglobin of 7.1 and hypocalcemia with a level of 7.4. A.m. cortisol reduced to 15.9 checked on 05/12/2023. Patient saturating low 90s on room air. Complains of occasional dry cough. No fevers, chills or night sweats. Denies any chest pain. Shortness of breath with minimal exertion. Allergies Allergy/AdvReac Type Severity Reaction Status Date / Time No Known Allergies Allergy Unverified 05/09/23 12:19 Home Medications Medication Instructions Recorded Confirmed Type Biktarvy 1 tab PO DAILY 05/09/23 05/09/23 History cholecalciferol (vitamin D3) 25 25 mcg PO DAILY 05/09/23 05/09/23 History mcg (1,000 unit) tablet ergocalciferol (vitamin D2) 1,250 50,000 unit PO . WEEKLY ON Fridays05/09/23 05/09/23 History mcg (50,000 unit) capsule (Drisdol) ferrous sulfate 324 mg (65 mg 324 mg PO DAILY 05/09/23 05/09/23 History iron) tablet,delayed release sulfamethoxazole 800 1 tab PO DAILY 05/09/23 05/09/23 History mg-trimethoprim 160 mg tablet (Bactrim DS) Patient History Medical History (Updated 05/14/23 @ 15:18 by Michele Samano MD) Abnormal CT scan, chest HIV (human immunodeficiency virus infection) Iron deficiency anemia Vitamin D deficiency Social History Smoking Status: Never smoker Second Hand Exposure: Yes; Do You Dip or Chew Tobacco: No; Hx Alcohol Use: Yes Alcohol type: wine Hx Substance Use: No Preferred Language: Lao Communication Ability: Effective Blowing Engineer Required: No Beliefs That Will Affect Care: Cultural Cultural Beliefs: does not eat pork Current Living Situation: Other Feels Safe at Home: Yes Assistive Devices: None Review of Systems Review of Systems: All systems reviewed & are unremarkable except as noted in HPI & below Physical Exam Physical Exam: Constitutional: Patient appears to be of their stated age. Patient is in no apparent distress. Patient is well-developed. Eyes: Pupils are equal round and reactive to light. Conjunctivae are normal. Anicteric sclera. Ears nose, mouth and throat: Mallampati class 2. Normal posterior oropharynx. Uvula is midline. Neck: Trachea is midline. Visual inspection is normal. Respiratory: Diminished bilaterally with crackles Cardiovascular: Regular rate and rhythm. No murmurs. No edema. Gastrointestinal: Normal bowel sounds, soft, nontender and nondistended. No hepatosplenomegaly noted. Musculoskeletal: No cyanosis. Patient is able to move all extremities. Strength is 5 out of 5 in the upper and lower extremities. Skin: No rashes, warm dry and intact. Neurologic: No obvious focal neurological deficits seen. Psychiatric: Alert and oriented x3 with a euthymic affect. Results & Data Results & Data Vital Signs (Past 12 Hours) Vital Signs Temp Pulse Pulse Resp BP Pulse Ox O2 Del Method 05/14/23 11:50 37.0 C 98 H 17 95/62 L 92 Room Air 05/14/23 08:00 Room Air 05/14/23 08:15 37.1 C 96 H 18 99/69 L 99 Room Air 05/14/23 07:13 88 05/14/23 04:10 91 H 95/53 L 05/14/23 03:23 37.0 C 92 H 16 93 Room Air PG Care Time/CCT Total # of Minutes Spent Total Time Spent with Patient: Total time spent is greater than 50% in coordination of care (as documented) at patient's floor/unit and/or counseling patient: Coding Level of Care Code 61204 IN/OBS CONSULT LVL 5,80M Diagnoses Abnormal CT scan, chest R93.89 HIV (human immunodeficiency virus infection) B20 Hypotension I95.9 Cough R05.9
[2023-05-14] MEDS ORDERED: COSYNTROPIN 250 MCG in SYRINGE 4 ML IV ONE ×2 (16:45→16:58)
[2023-05-14] MEDS: COUGH DROP (SUGAR FREE) LOZ 24 LOZ/1 BOX BUCCAL PRN (20:17)
[2023-05-15] MEDS: SODIUM CHLORIDE 0.9% 1,000 ML IV SCH ×3 (03:59→16:17)
[2023-05-15] MEDS ORDERED: COSYNTROPIN 250 MCG in SYRINGE 4 ML IV ONE (08:00)
--- NOTE | 2023-05-15 08:14 | XCELERA ---
[id number] [id number]
[2023-05-15 08:51] LABS: Hematocrit (blood only) 22.1 % (42.0-52.0); Hemoglobin 7.2 g/dl (14.0-18.0); Mean Corpuscular Hemoglobin 21.1 pg (25.0-34.0); Mean Corpuscular Hgb Conc 32.6 g/dL (32.0-36.0); Mean Corpuscular Volume 64.6 fL (80.0-100.0); Mean Platelet Volume 9.2 fL (9.4-12.4); Platelet Count 290 K/uL (130-400); RDW Coefficient of Variation 21.2 % (11.5-14.5); RDW Standard Deviation 46.9 fL (36.4-46.3); Red Blood Count 3.42 M/uL (4.70-6.10); White Blood Count 14.54 K/ul (4.8-10.8)
[2023-05-15 09:02] LABS: Albumin Globulin Ratio 0.5 (0.9-2); BUN Creatinine Ratio 10.6 (10-20); Bilirubin,Total 0.3 mg/dl (0.2-1.0); Calcium 7.5 mg/dl (8.6-10.3); Creatinine Clr Calc Pharmacy 179.4 ml/min; Est GFR (African American) 126.3 ml/min; Globulin 3.7 gm/dl (2.5-4.0); Potassium 3.5 mmol/L (3.5-5.1); Total Protein 5.7 gm/dl (6.0-8.3)
[2023-05-15 09:06] LABS: Reticulocyte % 1.8 % (0.5-2.0); Reticulocytes # 0.06 10^6/uL (0.02-0.10)
[2023-05-15 09:07] LABS: Anisocytosis Present; Basophils # (auto) 0.03 K/uL (0.00-0.20); Basophils % (auto) 0.2 %; Eosinophils # (auto) 0.41 K/uL (0.00-0.50); Eosinophils % (auto) 2.8 %; Immature Granulocytes # (auto) 0.14 K/uL (0.01-0.20); Lymphocytes # (auto) 1.65 K/uL (1.20-3.40); Lymphocytes % (auto) 11.3 %; Monocytes # (auto) 0.69 K/uL (0.11-0.59); Monocytes % (auto) 4.7 %; Neutrophils # (auto) 11.62 K/uL (1.40-6.50); Ovalocytes 1+; Poikilocytosis Present; Polychromasia 2+; Spherocytes 1+; Tear Drop Cells 1+
[2023-05-15] MEDS: PANTOprazole 40 MG in SYRINGE 0 ML IV SCH ×2 (10:22→20:47)
[2023-05-15] MEDS: SULFAMETHOXAZOLE/TRIMETHOPRIM DS 800/160MG TAB PO SCH ×3 (10:23→20:46)
[2023-05-15] MEDS: FOLIC ACID 1 MG in SYRINGE 9.8 ML IV SCH (10:23)
[2023-05-15] MEDS: BIKTARVY PO SCH (10:25)
[2023-05-15] MEDS: AZITHROMYCIN 500 MG in DEXTROSE 5% 250 ML IV SCH (10:26)
--- NOTE | 2023-05-15 15:39 | Hospitalist Progress Note ---
Date of Service May 15, 2023 Assessment & Plan (1) Cough: Plan: atypical Pneumonia or pneumonitis cefepime and azithromycin covering gram neg and atypical bacteria CXR showed "right lung with apparent pleural thickening" treating for gram negative pneumonia adding azithro for atypials ID consult given immune deficiency did send Quanterferon gold which resulted negative and with immune supression, pulmonary med also wants 3 sputum AFB samples , stool for Giardia is negative, stool biofire negative beta glucan is low which is good to not be concerned for pjp or fungus History of collapsed lung and intubation in 2021, previous pleurodesis CTA chest revealed no pulmonary emboli, but identified bronchiectasis with chronic interstitial lung disease Biofire negative Sputum culture not significant, Blood culture negative to date MRSA Screen negative; vancomycin discontinued Continue cefepime and azithromycin Continue Bactrim hx of PJP PNA; negative pulm recc ECHO, echo results are normal, am cortisol augmented (2) Hypotension: Plan: Unclear etiology , hypovolemia from diarrhea, pt also anemia and did receive 1 U prbc with evidence of iron deficiency takes iron daily may account for heme positive stools will have venofer 05/10,, 200 mg each dose heme eval (3) Anemia: Plan: microcytic anemia on arrival, acute on chronic iron deficiency anemia, unclear risk Clinically, patient denies melena and blood in stool/urine, No signs of active bleeding Fecal occult stool positive; hx of GI bleeds also history of oral iron hgb has been variable but stable >7 Protonix 40 mg IV bid Folic acid low at 4.31 Give folic acid 1 mg IV QAM B12 is normal profound iron deficiency supplementing iron as above spoke to hematology invoice control clerk, check haptoglobin, retic, hemoglobin electrophoresis, peripheral smear per pulm augmented cosyntropin test will have gi consult with recurrent diarrhea, persistent anemia (4) HIV (human immunodeficiency virus infection): Plan: Dx in 2013, treatment with [place] from [place] On bactrim ds tid; reports he is taking it consistently CD4: 4.03 CD absolute: 8.7 repeat cell count levels pending sees Rose Mccray at [place] for HIV care Continue Biktarvy (5) Diarrhea: Plan: Stool panel negative for infection Positive fecal occult blood Plan moderate protein calorie malnutrition Full code VTE PPx: SCDs (hold chemical DVT PPx in the setting of GI bleed rule out) N.p.o. in the setting of potential GI bleed Admission and Anticipated Discharge Date Admission Date: May 09, 2023 Subjective Patient still with coughing still with diarrhea still with anemia Pulmonary medicine is completed 3 sputum's for AFB Gold QuantiFERON is negative beta glucan is negative Physical Exam Physical Exam: Patient thin in no acute distress does have nonproductive cough during the visit Lungs sound clear improved from previous Abdomen is with normal to hyperactive bowel sounds some discomfort in the left lower quadrant Results & Data Results & Data Vital Signs (Past 12 Hours) Vital Signs Temp Pulse Resp BP Pulse Ox O2 Del Method 05/15/23 08:00 Room Air 05/15/23 11:09 98.6 F 99 H 18 95/56 L 95 Room Air 05/15/23 07:20 98.6 F 97 H 18 93/65 L 92 Room Air PG Care Time/CCT Total # of Minutes Spent Total Time Spent with Patient: Total time spent is greater than 50% in coordination of care (as documented) at patient's floor/unit and/or counseling patient: Coding Level of Care Code 41470 SUB INP/OBS CARE 2/35MIN Diagnoses Cough R05.9 Hypotension I95.9 Anemia D64.9 HIV (human immunodeficiency virus infection) B20 Diarrhea R19.7
--- NOTE | 2023-05-15 16:16 | Pulmonology Progress Note ---
Date of Service May 15, 2023 Assessment & Plan (1) Abnormal CT scan, chest: Plan: Contrast-enhanced CT chest personally reviewed from 05/09/2023 revealing trace bilateral effusions, calcified pleural plaques, biapical fibrotic changes and cylindrical bronchiectasis. Patient also with biapical blebs. Patchy irregular areas of consolidation noted in the lingula, right middle lobe and upper lung vuong. No prior chest imaging is available for review. Please obtain any prior CT chest or chest x-ray imaging from outside facility. Differential is broad especially considering his HIV status. CD4 count is pending. Infectious etiologies remain high in the differential. Invasive fungal infection seems less likely given the unremarkable beta D glucan. Invasive pulmonary aspergillosis can present with nodular infiltrates in immunocompromised patients, but with a low BDG that remains unlikely. CD4 count will also be telling, because if this is unremarkable, then that makes opportunistic infection less likely. QuantiFERON gold was negative which is difficult to interpret given his HIV status. AFB sputum culture x1 was obtained and is pending. It appears that 2 additional Gram stain and sputum cultures were obtained, but were not AFB sputum cultures. I discussed this with the bedside nurse and asked him to call the to make sure that the specimens are processed to evaluate for AFB organisms. Bronchoscopy can be considered to rule out infectious etiology. Other possibilities include cryptogenic organizing pneumonia which would require a lengthy course of systemic corticosteroids. Would defer bronchoscopy at this time until hypotension and severe anemia is improved or resolved. Unsure that the yield from bronchoscopy would be significant and it is negative fungal studies and cultures otherwise. I would like to see prior chest imaging from [facility] to compare for pursuing bronchoscopy. Some of the findings we are seeing on his most recent CT during this admission may be fibrotic changes related to his history of PJP, intubation and pneumothorax. Please obtain records from the outside facility including CT chest imaging. Echo noted with evidence of grade 1 diasto lic dysfunction. RVSP 30 to 40 mmHg. No valvulopathy identified. 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 (2) HIV (human immunodeficiency virus infection): Plan: CD4 count pending. Patient on Biktarvy. Appreciate ID consult (3) Hypotension: Plan: ACTH stim test borderline. Recommend endocrinology consult to evaluate for the possibility of adrenal insufficiency. (4) Cough: Plan: Multifactorial related to fibrosis and possibly related to infectious etiology. Suspect patient has element of COPD given prior tobacco abuse and emphysema noted on CT chest. LAMA inhaler ordered. (5) LVH (left ventricular hypertrophy): Plan Thank you for the consult. Pulmonary will continue to follow along with you. Admission and Anticipated Discharge Date Admission Date: May 09, 2023 Subjective Patient seen and examined. Continues to have a nonproductive cough that occurs at random. He notes the diarrhea has improved. He remains hypotensive. He is saturating well on room air. Review of Systems Review of Systems: All systems reviewed & are unremarkable except as noted in HPI & below Physical Exam Physical Exam: Constitutional: Patient appears to be of their stated age. Patient is in no apparent distress. Patient is well-developed. Eyes: Pupils are equal round and reactive to light. Conjunctivae are normal. Anicteric sclera. Ears nose, mouth and throat: Mallampati class 2. Normal posterior oropharynx. Uvula is midline. Neck: Trachea is midline. Visual inspection is normal. Respiratory: Diminished bilaterally with crackles Cardiovascular: Regular rate and rhythm. No murmurs. No edema. Gastrointestinal: Normal bowel sounds, soft, nontender and nondistended. No hepatosplenomegaly noted. Musculoskeletal: No cyanosis. Patient is able to move all extremities. Strength is 5 out of 5 in the upper and lower extremities. Skin: No rashes, warm dry and intact. Neurologic: No obvious focal neurological deficits seen. Psychiatric: Alert and oriented x3 with a euthymic affect. Results & Data Results & Data Vital Signs (Past 12 Hours) Vital Signs Temp Pulse Resp BP Pulse Ox O2 Del Method 05/15/23 16:06 37.0 C 95 H 18 96/58 L 96 Room Air 05/15/23 08:00 Room Air 05/15/23 11:09 37.0 C 99 H 18 95/56 L 95 Room Air 05/15/23 07:20 37.0 C 97 H 18 93/65 L 92 Room Air PG Care Time/CCT Total # of Minutes Spent Total Time Spent with Patient: Total time spent is greater than 50% in coordination of care (as documented) at patient's floor/unit and/or counseling patient: Coding Level of Care Code 88434 SUB INP/OBS CARE 2/35MIN Diagnoses Abnormal CT scan, chest R93.89 HIV (human immunodeficiency virus infection) B20 Hypotension I95.9 Cough R05.9 LVH (left ventricular hypertrophy) I51.7
[2023-05-15] MEDS: UMECLIDINIUM BROMIDE 62.5MCG/BLISTER 7 PUFFS/INHALER INH SCH (18:11)
--- NOTE | 2023-05-15 18:56 | Consultation ---
Date of Consultation May 15, 2023 Assessment & Plan (1) Anemia: Patient has a hypoproductive, microcytic, hypochromic anemia with anisopoikilocytosis but intact platelet count and actually elevated WBC primarily as neutrophilia. We have no data prior to this admission but he reports no historical identification of hemoglobinopathy or other blood disorder in himself. Ferritin is elevated but this may well be an acute phase reactant and his iron levels are extremely low. This would indeed be a classic presentation of iron deficiency anemia and this should be the predominant target for treatment to start. His calculated red cell iron deficit is in the range of 700 to 800 mg - coupled wiith probable need to replenish iron stores as well would target a total of approximately 1200 mg of iron replacement over time. This could be accomplished with serial Venofer infusions of 300 mg x 4 every ev erik 5 days or so Anemia is likely multifactorial. In fact he shows folic acid deficiency as well and that should be empirically replaced, his chronic infectious process is undoubtedly producing a certain element of inflammatory suppression/anemia of chronic disease. Although he has some mild splenomegaly and borderline adenopathy in the abdominal CT, it seems unlikely that he has any major lymp hoproliferative disorder or splenic sequestration. Intact thrombopoiesis and myelopoiesis argue against any major quintana marrow process. HIV has been historically associated with anemia primarily because of the medications used to treat it. More modern approaches such as Biktarvy are not usually associated with major suppression of erythropoiesis specifically. Hypoadrenalism or hypothyroidism could exacerbate anemia but heis Cortrosyn stimulation test response exceeds 18 mcg/dL suggesting against adrenal insufficiency and TSH is in normal range Given his relative youth and even with some mild pulmonary compromise, it is not likely that the current levels of hemoglobin are threatening and it is likely he is adapted to those over time. Do not see a role for transfusion unless he has a dramatic fall in hemoglobin or much more dramatic exacerbation symptomatology. In conjunction with replacement of his iron, there will be the question as to the cause of iron deficiency. This certainly does not seem to be dietary, he does not describe brian GI losses. CT scans do suggest an enteritis and question might be whether or not there is some absorptive defects related to that. Inflammatory changes in the GI mucosa may be leading to low-level loss over time. GI work-up in time to better understand absorption/loss issues there would be an important adjunct to replacement to avoid future recurrence. We will need to watch hemoglobin and CBC parameters over time to make sure they do correct with iron replacement. If not additional work-up may be required to further explore alternative etiologies. By history it seems unlikely that he has sickle cell disease but we do know that his grandfather apparently had sickle cell anemia which would suggest that his mother is a carrier and he has some chance of being a carrier as well. He is unaware of any other family history of thalassemia or other hemoglobinopathy but hemoglobinopathy panel is pending Plan 1. Empiric folic acid supplementation 2. Would discount the ferritin as an acute phase reactant and focusing on the classic morphologic presentation along with essentially absent serum iron plan to replace total 1200 mg of iron intravenously with serial Venofer infusions x4 space by 5 to 7 days. This could be continued as an outpatient 3. Can supplement with oral iron as well though it would take quite some time for that to "catch up" and there may be some ongoing issues of GI malabsorption 4. Semielective GI work-up once he is stabilized with respect to pulmonary and ID issues to define whether or not the enteritis changes reflect any possible etiology for malabsorption and as well consider endoscopic review for sources of GI loss. Specifically may need to consider the possibility of an inflammatory bowel disorder 5. By genetic description his mother is probably a sickle cell carrier and hemoglobinopathy profile is pending on him to see if he carries any hemoglobinopathy changes History of Present Illness Reason for Consultation: Anemia in a patient with HIV and opportunistic infection Attending Physician: Duran Hastings MD History of Present Illness Please see extensive documentation from the hospital service along with pulmonary and infectious disease consultants with regards to his broader issues of hypotension, HIV infection, and ongoing work-up for cough and respiratory infection. I will focus on the anemia for which I was consulted. Patient with an almost 10-year history of HIV currently on Biktarvy and relatively stable with regards to that. He is incarcerated at [facility]. He was transferred here with cough, hypotension. He also is markedly anemic though with relatively stable platelet count and actually frankly neutrophilia/elevated WBC. He reports he has no history of anemia to his knowledge and in fact feels that he is blood counts are probably normal some years ago. His maternal grandfather apparently had sickle cell anemia but his mother had no symptomatology (should have been an obligate hemoglobin S carrier). There is no other family history of blood disorders of which he is aware. He eats a regular diet. He does not report melena or hematochezia. He does note some decreased energy levels recently but this has not been profoundly limiting Allergies Allergy/AdvReac Type Severity Reaction Status Date / Time No Known Allergies Allergy Unverified 05/09/23 12:19 Home Medications Medication Instructions Recorded Confirmed Type Sebastianvy 1 tab PO DAILY 05/09/23 05/09/23 History cholecalciferol (vitamin D3) 25 25 mcg PO DAILY 05/09/23 05/09/23 History mcg (1,000 unit) tablet ergocalciferol (vitamin D2) 1,250 50,000 unit PO . WEEKLY ON Fridays05/09/23 05/09/23 History mcg (50,000 unit) capsule (Drisdol) ferrous sulfate 324 mg (65 mg 324 mg PO DAILY 05/09/23 05/09/23 History iron) tablet,delayed release sulfamethoxazole 800 1 tab PO DAILY 05/09/23 05/09/23 History mg-trimethoprim 160 mg tablet (Bactrim DS) Patient History Medical History (Updated 05/15/23 @ 16:16 by Michele Samano MD) Abnormal CT scan, chest HIV (human immunodeficiency virus infection) Iron deficiency anemia LVH (left ventricular hypertrophy) Vitamin D deficiency Social History Smoking Status: Never smoker Second Hand Exposure: Yes; Do You Dip or Chew Tobacco: No; Hx Alcohol Use: Yes Alcohol type: wine Hx Substance Use: No Preferred Language: Setswana Communication Ability: Effective Co Op Required: No Beliefs That Will Affect Care: Cultural Cultural Beliefs: does not eat pork Current Living Situation: Other Feels Safe at Home: Yes Assistive Devices: None Physical Exam Physical Exam: VSS (note that recent weight listed is 161.5 kg is clearly inaccurate in the previous 66.5 kg weight is almost certainly more reflective of current status. No scleral icterus, no pathologic adenopathy in the cervical supraclavicular axillary region. Some rales at the bases but overall moving air well without marked focal rubs or wheezes, cardiac rhythm is regular without pathological murmurs, he does have some tenderness in the left upper quadrant but I cannot discretely did identify an enlarged spleen Results & Data Vital Signs (Past 12 Hours) Vital Signs Temp Pulse Resp BP Pulse Ox O2 Del Method 05/15/23 16:06 37.0 C 95 H 18 96/58 L 96 Room Air 05/15/23 08:00 Room Air 05/15/23 11:09 37.0 C 99 H 18 95/56 L 95 Room Air 05/15/23 07:20 37.0 C 97 H 18 93/65 L 92 Room Air Laboratory Results Laboratory Results - last 24 hr 05/12/23 05/14/23 05/15/23 Unknown 18:28 08:22 WBC RBC Hgb Hct MCV MCH MCHC RDW Std Deviation RDW Coeff of Brody Plt Count MPV Immature Gran % (Auto) Neut % (Auto) Lymph % (Auto) Mclean % (Auto) Eos % (Auto) Baso % (Auto) Reticulocyte % (Auto) Neut # (Auto) Lymph # (Auto) Mclean # (Auto) Eos # (Auto) Baso # (Auto) Reticulocyte # Immature Gran # (Auto) Polychromasia Poikilocytosis Anisocytosis Spherocytes Tear Drop Cells Ovalocytes Peripher Smr Path Cons Sodium Potassium Chloride Carbon Dioxide Anion Gap BUN Creatinine Est Cr Clr Drug Dosing Est GFR ( Amer) Est GFR (Non-Af Amer) BUN/Creatinine Ratio Glucose Calcium Total Bilirubin AST ALT Alkaline Phosphatase Total Protein Albumin Globulin Albumin/Globulin Ratio Cortisol Response Giardia Antigen SEE NOTE 05/15/23 05/15/23 08:22 08:22 WBC 14.54 H RBC 3.42 L Hgb 7.2 L Hct 22.1 L MCV 64.6 L MCH 21.1 L MCHC 32.6 RDW Std Deviation 46.9 H RDW Coeff of Brody 21.2 H Plt Count 290 MPV 9.2 L Immature Gran % (Auto) 1.0 Neut % (Auto) 80.0 Lymph % (Auto) 11.3 Mclean % (Auto) 4.7 Eos % (Auto) 2.8 Baso % (Auto) 0.2 Reticulocyte % (Auto) 1.8 Neut # (Auto) 11.62 H Lymph # (Auto) 1.65 Mclean # (Auto) 0.69 H Eos # (Auto) 0.41 Baso # (Auto) 0.03 Reticulocyte # 0.06 Immature Gran # (Auto) 0.14 Polychromasia 2+ Poikilocytosis Present Anisocytosis Present Spherocytes 1+ Tear Drop Cells 1+ Ovalocytes 1+ Peripher Smr Path Cons Sodium 137 Potassium 3.5 Chloride 109 H Carbon Dioxide 23 Anion Gap 5 BUN 9 Creatinine 0.85 Est Cr Clr Drug Dosing 179.4 Est GFR ( Amer) 126.3 Est GFR (Non-Af Amer) 109.0 BUN/Creatinine Ratio 10.6 Glucose 93 Calcium 7.5 L Total Bilirubin 0.3 AST 8 L ALT 4 L Alkaline Phosphatase 63 Total Protein 5.7 L Albumin 2.0 L Globulin 3.7 Albumin/Globulin Ratio 0.5 L Cortisol Response Giardia Antigen Diagnostic Findings Chest X-Ray 05/09/23 10:30 XR chest 1V portable CLINICAL HISTORY: cough, hx pneumothorax COMPARISON STUDY: No previous studies for comparison. FINDINGS: Lung volumes are normal. There is no pneumothorax or pleural effusion. Cardiac size is normal. Mediastinal contours are normal. There may be pleural thickening within the right hemithorax. Slight asymmetric interstitial thickening within the right lung is noted. No definite consolidation to suggest pneumonia. IMPRESSION: 1. No pneumothorax. 2. Slight asymmetric interstitial thickening within the right lung with apparent pleural thickening. The findings are probably chronic however an infectious process could appear similar. No definite consolidation. Radiographic follow-up to ensure stability/resolution is recommended. ACT 112: Negative or not required by law. Electronically signed by: Efrain Stevens M.D. 05/09/2023 10:52 AM Abdomen/Pelvis CT 05/09/23 12:34 CT OF THE ABDOMEN AND PELVIS WITH CONTRAST CLINICAL HISTORY: Cough, hypotension, anemia. COMPARISON STUDY: None. TECHNIQUE: Following IV administration of 116 mL of Optiray, axial images of the abdomen and pelvis were obtained from the lung bases to the proximal femurs. Images were reviewed in the axial, sagittal, and coronal planes. IV contrast was administered without complication. Automated exposure control was utilized for the study. A dose lowering technique was utilized adhering to the principles of ALARA. FINDINGS: Please note the chest CT will be reported separately. No pneumatosis, free air or portal venous gas is present. There is periportal edema. No biliary or pancreatic ductal dilatation is present. There are no hepatic lesions. Mild hepatosplenomegaly is present. A small gallstone within the upper neck is present. There may be a 3 mm calcified stone within the cystic duct. There is moderate gallbladder wall thickening of the gallbladder is not distended. There is no peripancreatic infiltration or fluid. There is a 3 mm right renal calculus. There is no hydronephrosis. No ureteral calculi are present. The appendix is normal. A small amount of abdominal and pelvic ascites is present. No fluid collections are present. Evaluation of the abdomen and pelvis is difficult given a paucity of intra-abdominal fat. There is apparent wall thickening of multiple jejunal loops. Major vasculature is patent. Several mildly enlarged mesenteric lymph nodes are noted. Index node on image 150 measures 1.5 x 1.4 cm. There is mild diffuse mesenteric stranding. No acute fractures are identified. IMPRESSION: 1. No bowel obstruction. Normal appendix. Apparent wall thickening of multiple jejunal loops. This is nonspecific and may be related to underdistention or other etiologies such as hypoalbuminemia. A nonspecific enteritis given mesenteric stranding could appear similar. 2. Evidence for mild volume overload with anasarca, trace ascites and periportal edema. 3. Cholelithiasis and possible stone within the cystic duct. However, gallbladder not distended. Moderate gallbladder wall thickening which may also be related to volume overload/hydration. The findings do not suggest acute cholecystitis. 4. 3 mm right renal calculus. No ureteral calculi. No hydronephrosis. 5. A few mildly enlarged mesenteric lymph nodes. These are likely benign. A follow-up CT in 6 months to ensure stability/resolution is recommended. ACT 112: Negative or not required by law. Electronically signed by: Efrain Stevens M.D. 05/09/2023 1:46 PM Chest CTA 05/09/23 12:34 CT angio chest PE protocol CT DOSE: 1057.63 mGy.cm HISTORY: 42 years-old Male with Cough, hypotension, anemia. Acute with hypotension TECHNIQUE: Multiple CTA images of the chest were obtained after the intravenous administration of 116 ml Optiray. Coronal and sagittal MIPS were obtained from the axial data set and were submitted for review. All measurements were obtained according to NASCET criteria. A dose lowering technique was utilized a dhering to the principles of ALARA. COMPARISON: CT abdomen and pelvis of same day FINDINGS: CTA: The heart is normal in size. There is no pericardial effusion. Unremarkable thoracic aorta. No pulmonary emboli identified. Mixing artifact within the pulmonary arterial tree is suboptimal dilation of the subsegmental branches secondary to timing. CT CHEST: Unremarkable thyroid. No pathologically enlarged lymph nodes of the chest. Trace pleural effusions. Right-sided calcified pleural plaques. Biapical fibrotic changes. Cylindrical bronchiectasis is noted, most pronounced within the upper to mid lung zones. Reticular interstitial densities with mixed groundglass opacities. Biapical bleb and bulla formation. Linear areas of consolidation within the lung bases are most pronounced in the right middle lobe and lingula.r 11 mm subpleural nodular focus in the posterior basal segment right lower lobe on image 71. Similar appearing 6 mL linear focus within the superior segment right lower lobe, image 159. Hepatosplenomegaly. Periportal edema. Generalized body wall edema. No acute fracture or destructive bone lesion identified. IMPRESSION: 1. No pulmonary emboli identified. 2. Bronchiectasis with chronic interstitial lung disease and biapical bleb and bulla formation. 3. Patchy and irregular areas of consolidation which are most pronounced within the right middle lobe and lingula with upper lung zone predominant groundglass densities may also be related to the chronic lung disease however a superimposed infectious or inflammatory pneumonitis could appear similarly. 4. Three-month follow-up chest CT recommended to assess the aforementioned irregular areas of consolidation. 5. Trace pleural effusions. ACT 112: Negative or not required by law. The above report was generated using voice recognition software. It may contain grammatical, syntax or spelling errors. Electronically signed by: Rashid Nunez M.D. 05/09/2023 1:53 PM Chest X-Ray 05/11/23 09:39 XR chest 1V portable CLINICAL HISTORY: Worsening cough. COMPARISON STUDY: Chest radiograph and chest CT May 09, 2023. FINDINGS: There is no pneumothorax or pleural effusion. Cardiac size is normal. Mediastinal contours are normal. Right upper lung linear densities are unchanged and favor scarring. Bilateral lower lung opacities with interstitial thickening are again noted. IMPRESSION: Interstitial thickening and mild lower lung opacities, slightly increased since prior exam. The findings may reflect an infectious process superimposed upon chronic lung disease. ACT 112: Negative or not required by law. Electronically signed by: Efrain Stevens M.D. 05/11/2023 12:13 PM PG Care Time/CCT Total # of Minutes Spent Total Time Spent with Patient: Total time spent is greater than 50% in coordination of care (as documented) at patient's floor/unit and/or counseling patient: Coding Level of Care Code 37412 IN/OBS CONSULT LVL 3,45M Diagnoses Anemia D64.9
[2023-05-16] MEDS: SODIUM CHLORIDE 0.9% 1,000 ML IV SCH ×2 (01:53→11:43)
[2023-05-16] MEDS: AZITHROMYCIN 500 MG in DEXTROSE 5% 250 ML IV SCH (10:00)
[2023-05-16] MEDS: FOLIC ACID 1 MG in SYRINGE 9.8 ML IV SCH (10:00)
[2023-05-16] MEDS: PANTOprazole 40 MG in SYRINGE 0 ML IV SCH ×2 (10:00→20:17)
[2023-05-16] MEDS: UMECLIDINIUM BROMIDE 62.5MCG/BLISTER 7 PUFFS/INHALER INH SCH (10:01)
[2023-05-16] MEDS: BIKTARVY PO SCH (10:02)
[2023-05-16] MEDS: SULFAMETHOXAZOLE/TRIMETHOPRIM DS 800/160MG TAB PO SCH ×3 (10:03→20:18)
--- NOTE | 2023-05-16 10:10 | Gastrointestinal Consultation ---
Date of Consultation May 16, 2023 Assessment & Plan (1) Diarrhea: (2) Abnormal computerized tomography of biliary tract: (3) Anemia: Plan Patient seen in conjunction with Dr. Troncoso who advised on the plan. -Continue Imodium supportively. -Add Dicyclomine 10 mg TID prn. -Obtain HIDA to assess biliary findings on CT. If T bili rises or develops abdominal pain, would consider MRCP for further evaluation as well. -Outpatient EGD & colonoscopy when acute pulmonary issues resolve (would plan to biopsy for CMV) -Celiac panel pending, along with other studies as ordered after hematology evaluation given anemia Supervising Physician Co-Signing Physician Notes I saw the patient and agree with the findings as documented by KARON Cast History of Present Illness Reason for Consultation: Persistent diarrhea in HIV patient Attending Physician: Duran Hastings MD History of Present Illness Patient is a 42 yo incarcerated male with a history of suboptimally controlled HIV per his reports. He is currently taking Biktarvy and has been on this medication x 1 year. He has a history of PCP pneumonia and takes Bactrim. He is presently hospitalized due to acute issues with pneumonia for which he is presen tly being treated with antibiotics including Azithromycin & Bactrim. Initial testing for TB negative, however awaiting one more test so patient remains on airborne precautions. CT chest indicated consolidation of predominantly the RML. GI has been consulted due to patient's ongoing reports of diarrhea. Patient notes 6+ episodes of diarrhea daily. He notes this has gone on for several months. He notes it is worse after meals. There is some associated abdominal cramping prior to a bowel movement. Stool PCR negative for viral/bacterial pathogens. Patient negative for Giardia and cryptosporidium. CT scan shows possible jejunal thickening related to either a possible hypoalbuminemia vs an enteritis. CT scan shows cholelithiasis with a stone in the cystic duct. No evidence of acute cholecystitis. T bili wnl. CT also shows possibly reactive mesenteric lymph nodes. The patient is prescribed Imodium currently for his diarrhea. He denies any relationship to medication changes/diet changes. A C eliac panel is pending. H/H is 7.2/22.1. MCV 64.6. RBC count 3.42. Patient's mom has a history of a sickle cell gene. Hematology working this up at present. Hematology advised elective GI work-up when acute issues resolve for further evaluation of his anemia. Unclear regarding any weight loss. Allergies Allergy/AdvReac Type Severity Reaction Status Date / Time No Known Allergies Allergy Unverified 05/09/23 12:19 Home Medications Medication Instructions Recorded Confirmed Type Biktarvy 1 tab PO DAILY 05/09/23 05/09/23 History cholecalciferol (vitamin D3) 25 25 mcg PO DAILY 05/09/23 05/09/23 History mcg (1,000 unit) tablet ergocalciferol (vitamin D2) 1,250 50,000 unit PO . WEEKLY ON Fridays05/09/23 05/09/23 History mcg (50,000 unit) capsule (Drisdol) ferrous sulfate 324 mg (65 mg 324 mg PO DAILY 05/09/23 05/09/23 History iron) tablet,delayed release sulfamethoxazole 800 1 tab PO DAILY 05/09/23 05/09/23 History mg-trimethoprim 160 mg tablet (Bactrim DS) Patient History Medical History Abnormal CT scan, chest HIV (human immunodeficiency virus infection) Iron deficiency anemia LVH (left ventricular hypertrophy) Vitamin D deficiency Social History Smoking Status: Never smoker Second Hand Exposure: Yes; Do You Dip or Chew Tobacco: No; Hx Alcohol Use: Yes Alcohol type: wine Hx Substance Use: No Preferred Language: Omani Communication Ability: Effective Sales Host Required: No Beliefs That Will Affect Care: Cultural Cultural Beliefs: does not eat pork Current Living Situation: Other Feels Safe at Home: Yes Assistive Devices: None Review of Systems Constitutional: no fever and no chills Respiratory: + cough and + dyspnea on exertion Cardiovascular: no chest pain Gastrointestinal: + abdominal pain and + diarrhea/loose st ools; no blood in stools Psychiatric: no problem reported Physical Exam Constitutional: well developed Respiratory: normal respiratory effort Cardiovascular: Rate/Rhythm: regular rate Gastrointestinal (Abdomen): Inspection/Auscultation: abdomen normal to inspection Percussion/Palpation: + abdomen tender (left sided) Psychiatric: Orientation: alert and oriented x 3 Results & Data Vital Signs (Past 12 Hours) Vital Signs Temp Pulse Pulse Resp BP Pulse Ox O2 Del Method 05/16/23 07:36 36.4 C L 89 20 93/61 L 93 Room Air 05/16/23 03:20 36.8 C 94 H 18 95/60 L 91 Room Air 05/15/23 23:00 101 H 05/15/23 23:00 36.7 C 100 H 18 99/63 L 92 Room Air PG Care Time/CCT Total # of Minutes Spent Total Time Spent with Patient: Total time spent is greater than 50% in coordination of care (as documented) at patient's floor/unit and/or counseling patient: Coding Level of Care Code 56970 IN/OBS CONSULT LVL 4,60M Diagnoses Diarrhea R19.7 Abnormal computerized tomography of biliary tract R93.2 Anemia D64.9
--- NOTE | 2023-05-16 13:20 | Infectious Disease Progress Nt ---
Date of Service May 16, 2023 Assessment & Plan (1) Diarrhea: (2) HIV (human immunodeficiency virus infection): (3) Hypotension: (4) Cough: Plan 42 yo M with h/o of HIV Bactrim), vitamin D deficiency, and FREDIS. He presented from [facility] due to worsening cough, and hypotension in the 80/50s this morning. History of collapsed lung and intubation in 2021 (hospitalized from October - Mar 2022). Hx of multiple blood transfusions from blood in stool during this hospitalization. He denies recent hemoptysis, melena, or blood in the stool/urine. No recent changes in diet, but decreased appetite. He endorses diarrhea multiple times per night this past week; increased frequency. Dry cough ongoing x 1.5 month, but getting worse. Patient endorses mild SOB on exertion over the past few weeks. Hx of PJP pneumonia. Hypotensive at 90/61 on arrival; vitals otherwise stable. Temp 37, BP low at 90s/60s, WBC 15.9 AST/ALT 9/3, LDH 146 05/10 sputum cx light normal rosa, 05/09 blood cx NGTD, MRSA nares negative, GI stool PCR negative, RVP negative CT Chest: Patchy and irregular areas of consolidation, mostly in RML, with with upper lung zone predominant groundglass densities may also be related to the chronic lung disease however a superimposed infectious or inflammatory pneumonitis could appear similarly. Bronchiectasis with blebs and bulla CT A/P A few mildly enlarged mesenteric lymph nodes. Apparent wall thickening of multiple jejunal loops. This is nonspecific, Cholelithiasis and possible stone GB wall thickening. #HIV/AIDS On Biktarvy, Bactrim #Pneumonia, consolidation and GGO #Hypotension #weight loss #Currently Incarcerated # Persistent Leukocytosis # History of PJP Micro BC 05/09 sterile sputum cx 05/10 NG sputum cx AFB 05/14 P sputum cx AFB 05/15 P sputum cx AFB 05/16 P stool/gi PCR neg Resp PCR neg Beta D glucan <31 QFN neg AV/ABX Biktarvy Cefepime 05/09-05/11 Azithromycin 05/11- Bactrim 05/11-ongoing vanco 05/09 Discussion: HIV patientCD4 ( 87 in 01/2023) #Pneumonia, consolidation and GGO #Hypotension #weight loss #Currently Incarcerated AV/ABX Biktarvy Cefepime 05/10- Azithromycin 05/11- Bactrim Discussion: HIV patient Cd4 < 100 in 01/2023 suggesting non-compliance or immune-non responder. . If CD4 truly this low he is at risk for OIS including PJP, espec with GGO on imaging, ROSA/MAC, TB (current and prior incarcerations). Would consider additional fungal etiology such as crypto His hypotension may be reflective of failure to thrive, Adrenal insufficiency, fungal infections , MTB or disseminated ROSA/MAC potentially. Need to rule out opportunitic infections. His persistent diarrhea may also be secodary to an OI His bd glucan is < 31 making PJP less likely, but not impossible Although QFN negative, this does not mean much if his CD4 is low and he cant mount a response. GI/ Stool pcr is negative. WBC 14.54, ASt 8, Alt 4 RECOMMEND -FU CD4, Viral -Continue Biktarvy -Continue Bactrim dose increased to PJP dosing from 1 tab po bid to 2 tab po BId , pending PJP DFA, PCR. Can hold on steroids given unclear etiology and he is not hypoxic and bdg not impressive. -Continue Airborne isolation pending AFB smear/culture q8 hours x 3 results -FU PJP PCR, urine histoplasmosis, Cryptococcal ag -It appears he only received Cefepime for 3 days . Cefepime was stopped on 05/11, I will restart plan is to complete 7 d of therapy _ I stopped Azithro today Day 5 . He is severely immunocompromised with recent cd4 < 100 so he is at risk for Pulmonary and disseminated MAC/ROSA wes with hypotension. Azithro is partial therapy. Stopped to decrease development of R pending AFB in sputum and blood - AFB blood ordered ID will continue to follow. Aisha Elmore MD, MPH Infectious Disease [facility], [facility] Call [phone] with questions Admission and Anticipated Discharge Date Admission Date: May 09, 2023 Subjective Subsequent visit was provided via telemedicine using two-way real-time interactive telecommunication between the patient and the telemedicine provider. For the duration of the visit, the provider was performing the assessment from a different facility than the patient. This includesuse of bluetooth stethoscope forauscultationperformed by the telepresenter that the telemedicine provider can hear if described in the physical exam. Job Spotter contact information: Please call [facility] Call Center . (Phone Number For Physician Use Only) After establishing a telemedicine visit, patient was: Patient was verified with two unique identifiers and Patient/authorized rep acknowledged consent and understanding Time Spent with Patient: Subsequent => 35 min He complains of continued cough, only productive in the am Afebrile Persistent leukocytosis and diarrhea. New abd discomfort, no N/V Physical Exam Physical Exam: NAD, lying in bed , coughing No rash on exposed skin Soft abd, LLQ tenderness No LE edema, Left ankle in hand cuffs AAO*3 Results & Data Vital Signs (Past 12 Hours) Vital Signs Temp Pulse Resp BP Pulse Ox O2 Del Method 05/16/23 11:39 36.6 C 87 22 92/57 L 96 Room Air 05/16/23 07:36 36.4 C L 89 20 93/61 L 93 Room Air 05/16/23 03:20 36.8 C 94 H 18 95/60 L 91 Room Air Laboratory Results Laboratory Results - last 48 hr 05/12/23 05/14/23 05/15/23 Unknown 18:28 08:22 WBC RBC Hgb Hct MCV MCH MCHC RDW Std Deviation RDW Coeff of Brody Plt Count MPV Immature Gran % (Auto) Neut % (Auto) Lymph % (Auto) [place] % (Auto) Eos % (Auto) Baso % (Auto) Reticulocyte % (Auto) Neut # (Auto) Lymph # (Auto) [place] # (Auto) Eos # (Auto) Baso # (Auto) Reticulocyte # Immature Gran # (Auto) Polychromasia Poikilocytosis Anisocytosis Spherocytes Tear Drop Cells Ovalocytes Peripher Smr Path Cons Sodium Potassium Chloride Carbon Dioxide Anion Gap BUN Creatinine Est Cr Clr Drug Dosing Est GFR ( Amer) Est GFR (Non-Af Amer) BUN/Creatinine Ratio Glucose Calcium Total Bilirubin AST ALT Alkaline Phosphatase Total Protein Albumin Globulin Albumin/Globulin Ratio Cortisol Response Giardia Antigen SEE NOTE 05/15/23 05/15/23 08:22 08:22 WBC 14.54 H RBC 3.42 L Hgb 7.2 L Hct 22.1 L MCV 64.6 L MCH 21.1 L MCHC 32.6 RDW Std Deviation 46.9 H RDW Coeff of Brody 21.2 H Plt Count 290 MPV 9.2 L Immature Gran % (Auto) 1.0 Neut % (Auto) 80.0 Lymph % (Auto) 11.3 [place] % (Auto) 4.7 Eos % (Auto) 2.8 Baso % (Auto) 0.2 Reticulocyte % (Auto) 1.8 Neut # (Auto) 11.62 H Lymph # (Auto) 1.65 [place] # (Auto) 0.69 H Eos # (Auto) 0.41 Baso # (Auto) 0.03 Reticulocyte # 0.06 Immature Gran # (Auto) 0.14 Polychromasia 2+ Poikilocytosis Present Anisocytosis Present Spherocytes 1+ Tear Drop Cells 1+ Ovalocytes 1+ Peripher Smr Path Cons Sodium 137 Potassium 3.5 Chloride 109 H Carbon Dioxide 23 Anion Gap 5 BUN 9 Creatinine 0.85 Est Cr Clr Drug Dosing 179.4 Est GFR ( Amer) 126.3 Est GFR (Non-Af Amer) 109.0 BUN/Creatinine Ratio 10.6 Glucose 93 Calcium 7.5 L Total Bilirubin 0.3 AST 8 L ALT 4 L Alkaline Phosphatase 63 Total Protein 5.7 L Albumin 2.0 L Globulin 3.7 Albumin/Globulin Ratio 0.5 L Cortisol Response Giardia Antigen Diagnostic Findings Microbiology 05/15/23 Unknown Sputum, Expectorated Gram Stain - Final 05/15/23 Unknown Sputum, Expectorated Sputum Culture - Preliminary Heavy normal rosa present, Final report to follow. 05/14/23 23:00 Sputum, Expectorated Gram Stain - Final 05/14/23 23:00 Sputum, Expectorated Sputum Culture - Preliminary Heavy normal rosa present, Final report to follow. 05/14/23 23:00 Sputum, Expectorated Acid Fast Bacilli Smear - Final 05/09/23 11:39 Blood Aerobic Blood Culture - Final No growth in Aerobic bottle after 5 days. 05/09/23 11:39 Blood Anaerobic Blood Culture - Final 05/09/23 11:20 Blood Aerobic Blood Culture - Final No growth in Aerobic bottle after 5 days. 05/09/23 11:20 Blood Anaerobic Blood Culture - Final No growth in Anaerobic bottle after 5 days. 05/10/23 16:16 Sputum, Expectorated Gram Stain - Final 05/10/23 16:16 Sputum, Expectorated Sputum Culture - Final Moderate normal rosa. Hepatobiliary Scan Nuclear Medicine 05/16/23 10:06 NUCLEAR MEDICINE HEPATOBILIARY SCAN HISTORY: Cholelithiasis, diarrhea, abnormal CT scan COMPARISON: Abdomen and pelvis CT 05/09/2023. TECHNIQUE: Immediately following the intravenous administration of 5.1 mCi Tc- 99m Choletec, dynamic anterior abdominal imaging was performed. FINDINGS: Uniform hepatic tracer accumulation is shown. Prompt intrahepatic biliary excretion is seen. The gallbladder, common bile duct, and small bowel are all visualized by 40 minutes. This appearance represents the normal sequence of biliary excretion. IMPRESSION: 1. No evidence for cystic duct obstruction. ACT 112: Negative or not required by law. Electronically signed by: Paco Pugh M.D. 05/16/2023 1:41 PM Medications Administered Home Medications Medication Instructions Recorded Confirmed Last Taken Biktarvy 1 tab PO DAILY 05/09/23 05/09/23 Unknown cholecalciferol (vitamin D3) 25 25 mcg PO DAILY 05/09/23 05/09/23 Unknown mcg (1,000 unit) tablet ergocalciferol (vitamin D2) 1,250 50,000 unit PO . WEEKLY ON Fridays05/09/23 05/09/23 Unknown mcg (50,000 unit) capsule (Drisdol) ferrous sulfate 324 mg (65 mg 324 mg PO DAILY 05/09/23 05/09/23 Unknown iron) tablet,delayed release sulfamethoxazole 800 1 tab PO DAILY 05/09/23 05/09/23 Unknown mg-trimethoprim 160 mg tablet (Bactrim DS) Active Medications Generic Name Dose Route Start Last Admin Trade Name Freq PRN Reason Stop Dose Admin Bictegravir/Emtricitabine/Tenofovir 1 each 05/10/23 09:00 05/16/23 10:02 Biktarvy PO 06/09/23 08:59 1 each DAILY JANES Administration Protocol Guaifenesin/Codeine Phosphate 10 ml 05/11/23 09:39 05/13/23 17:00 Guaifenesin/Codeine 200mg/20mg 10ml Udc PO 06/10/23 09:38 10 ml Q6H PRN Administration Cough Folic Acid 1 mg/ Syringe 10 mls @ 5 mls/min 05/10/23 09:00 05/16/23 10:00 IV 06/09/23 08:59 5 mls/min QAM JANES Administration Pantoprazole Sodium 40 mg/ 10 mls @ 5 mls/min 05/11/23 09:00 05/16/23 10:00 Syringe IV 06/10/23 08:59 5 mls/min BID JANES Administration Azithromycin 500 mg/ Dextrose 255 mls @ 125 mls/hr 05/12/23 09:00 05/16/23 12:08 IV 05/16/23 23:00 Infused DAILY JANES Infusion Loperamide HCl 2 mg 05/14/23 14:24 05/14/23 14:46 Loperamide Hcl 2 Mg Cap PO 06/13/23 14:23 2 mg Q8H PRN Administration Diarrhea Menthol 1 tunde 05/10/23 10:21 05/14/23 20:17 Cough Drop (Sugar Free) Tunde 24 Tunde/1 Box BUCCAL 06/09/23 10:20 1 tunde UD PRN Administration Sore Throat Promethazine HCl 12.5 mg 05/11/23 13:04 05/14/23 20:19 Promethazine Hcl 12.5 Mg/10 Ml Udp PO 06/10/23 13:03 12.5 mg Q6H PRN Administration Cough Trimethoprim/Sulfamethoxazole 1 tab 05/12/23 14:00 05/16/23 13:49 Sulfamethoxazole/Trimethoprim Ds 800/160mg Tab PO 06/11/23 13:59 1 tab TID JANES Administration Umeclidinium [place] 1 puffs 05/15/23 16:15 05/16/23 10:01 Umeclidinium [place] 62.5mcg/Blister 7 Puffs/Inhaler INH 06/14/23 16:14 1 puffs DAILY JANES Administration
--- NOTE | 2023-05-16 13:42 | Nuclear Medicine Report ---
NUCLEAR MEDICINE HEPATOBILIARY SCAN HISTORY: Cholelithiasis, diarrhea, abnormal CT scan COMPARISON: Abdomen and pelvis CT 05/09/2023. TECHNIQUE: Immediately following the intravenous administration of 5.1 mCi Tc-99m Choletec, dynamic a nterior abdominal imaging was performed. FINDINGS: Uniform hepatic tracer accumulation is shown. Prompt intrahepatic biliary excretion is seen. The gall bladder, common bile duct, and small bowel are all visualized by 40 minutes. This appearance represen ts the normal sequence of biliary excretion. IMPRESSION: 1. No evidence for cystic duct obstruction. ACT 112: Negative or not required by law. Electronically signed by: Paco Pugh M.D. 05/16/2023 1:41 PM
--- NOTE | 2023-05-16 14:12 | Hospitalist Progress Note ---
Date of Service May 16, 2023 Assessment & Plan (1) Cough: Plan: atypical Pneumonia or pneumonitis cefepime and azithromycin covering gram neg and atypical bacteria Pt remains in the hospital while sputum cultures for TB are collected and processes, finalizing GI workup CXR showed "right lung with apparent pleural thickening" treating for gram negative pneumonia adding azithro for atypials ID consult given immune deficiency did send Quanterferon gold which resulted negative and with immune suppression, pulmonary med also wants 3 sputum AFB samples with diarrhea , stool for Giardia, C Diff negative, stool biofire negative beta glucan is low which is good to not be concerned for pjp or fungus History of collapsed lung and intubation in 2021, previous pleurodesis CTA chest revealed no pulmonary emboli, but identified bronchiectasis with chronic interstitial lung disease pulmonary Biofire negative Sputum culture not significant, Blood culture negative to date MRSA Screen negative; vancomycin discontinued Continue cefepime and azithromycin, completed one week cefepime, day 5 azithro is 05/16/23 Continue Bactrim hx of PJP PNA; negative pulm recc ECHO, echo results are normal, am cortisol augmented appropriately (2) Hypotension: Plan: Unclear etiology , hypovolemia from diarrhea, pt also anemia and did receive 1 U prbc with evidence of iron deficiency takes iron daily may account for heme positive stools will have venofer 05/10,, 200 mg each dose heme eval (3) Anemia: Plan: microcytic anemia on arrival, acute on chronic iron deficiency anemia, unclear risk Clinically, patient denies melena and blood in stool/urine, No signs of active bleeding Fecal occult stool positive; hx of GI bleeds also history of oral iron hgb has been variable but stable >7 Protonix 40 mg IV bid Folic acid low at 4.31 Give folic acid 1 mg IV QAM B12 is normal profound iron deficiency supplementing iron as above 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 -Add Dicyclomine 10 mg TID prn. -Obtain HIDA to assess biliary findings on CT. If T bili rises or develops abdominal pain, would consider MRCP for further evaluation as well. -Outpatient EGD & colonoscopy when acute pulmonary issues resolve (would plan to biopsy for CMV) -Celiac panel pending, along with other studies as ordered after hematology evaluation given anemia (4) HIV (human immunodeficiency virus infection): Plan: Dx in 2013, treatment with Multichannel from normal On bactrim ds tid; reports he is taking it consistently CD4: 4.03 CD absolute: 8.7 repeat cell count levels pending sees Rose Mccray at [facility] for HIV care Continue Biktarvy (5) Diarrhea: Plan: Stool panel negative for infection Positive fecal occult blood GI work up underway Plan moderate protein calorie malnutrition Full code VTE PPx: SCDs (hold chemical DVT PPx in the setting of GI bleed rule out) Admission and Anticipated Discharge Date Admission Date: May 09, 2023 once completed GI work up and gets iron, completes TB pulmonary eval, may consider return back to halfway with outpt follow up heme and gi Subjective pt with cough and persistent diarrhea GI work up in progress Physical Exam 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, lungs coarse but clear Results & Data Results & Data Vital Signs (Past 12 Hours) Vital Signs Temp Pulse Resp BP Pulse Ox O2 Del Method 05/16/23 11:39 97.9 F 87 22 92/57 L 96 Room Air 05/16/23 07:36 97.5 F L 89 20 93/61 L 93 Room Air 05/16/23 03:20 98.2 F 94 H 18 95/60 L 91 Room Air PG Care Time/CCT Total # of Minutes Spent Total Time Spent with Patient: Total time spent is greater than 50% in coordination of care (as documented) at patient's floor/unit and/or counseling patient: Coding Level of Care Code 51307 SUB INP/OBS CARE 3/50MIN Diagnoses Cough R05.9 Hypotension I95.9 Anemia D64.9 HIV (human immunodeficiency virus infection) B20 Diarrhea R19.7
[2023-05-16] MEDS: CEFEPIME 2,000 MG in SYRINGE 0 ML IV SCH (18:16)
[2023-05-16] MEDS: LOPERAMIDE HCL 2 MG CAP PO PRN (18:16)
[2023-05-17 00:47] LABS: Pneumocystis jirovecii PCRQual NOT DETECTED; Pneumocystis jirovecii Source SPUTUM
[2023-05-17] MEDS: CEFEPIME 2,000 MG in SYRINGE 0 ML IV SCH ×3 (00:55→16:26)
[2023-05-17] MEDS: PROMETHAZINE HCL 12.5 MG/10 ML UDP PO PRN ×2 (01:15→23:19)
[2023-05-17 04:47] LABS: HIV 1 RNA PCR Copies/ML <20 DETECTED copies/mL (NOT DETECTED); HIV-1 RNA Log Copies/mL <1.30 DETECTED (NOT DETECTED); LSP % Cells Analyzed CD4 5 % (30-61); LSP Absolute Ct CD4 69 cells/uL (490-1740); LSP Lymphocytes Absolute 1347 cells/uL (850-3900)
[2023-05-17 06:54] LABS: Hematocrit (blood only) 21.3 % (42.0-52.0); Hemoglobin 6.9 g/dl (14.0-18.0); Mean Corpuscular Hemoglobin 20.7 pg (25.0-34.0); Mean Corpuscular Hgb Conc 32.4 g/dL (32.0-36.0); Mean Platelet Volume 9.4 fL (9.4-12.4); Platelet Count 255 K/uL (130-400); RDW Coefficient of Variation 21.5 % (11.5-14.5); RDW Standard Deviation 47.5 fL (36.4-46.3); Red Blood Count 3.33 M/uL (4.70-6.10); White Blood Count 13.48 K/ul (4.8-10.8)
[2023-05-17 07:03] LABS: Albumin Globulin Ratio 0.6 (0.9-2); BUN Creatinine Ratio 10.2 (10-20); Bilirubin,Total 0.4 mg/dl (0.2-1.0); Calcium 7.5 mg/dl (8.6-10.3); Creatinine Clr Calc Pharmacy 112.5 ml/min; Est GFR (African American) 124.5 ml/min; Est GFR (Non-African American) 107.5 ml/min; Globulin 3.6 gm/dl (2.5-4.0); Potassium 3.2 mmol/L (3.5-5.1); Total Protein 5.6 gm/dl (6.0-8.3)
[2023-05-17] MEDS ORDERED: SODIUM CHLORIDE 0.9% 250 ML IV PRN (07:46)
--- NOTE | 2023-05-17 07:59 | Pulmonology Progress Note ---
Date of Service May 17, 2023 Assessment & Plan (1) Abnormal CT scan, chest: Plan: Contrast-enhanced CT chest personally reviewed from 05/09/2023 revealing trace bilateral effusions, calcified pleural plaques, biapical fibrotic changes and cylindrical bronchiectasis. Patient also with biapical blebs. Patchy irregular areas of consolidation noted in the lingula, right middle lobe and upper lung vuong. No prior chest imaging is available for review. Please obtain any prior CT chest or chest x-ray imaging from outside facility. Differential is broad especially considering his HIV status. CD4 count is low. Infectious etiologies remain high in the differential. Invasive fungal infection seems less likely given the unremarkable beta D glucan. Invasive pulmonary aspergillosis can present with nodular infiltrates in immun ocompromised patients, but with a low BDG that remains unlikely. CD4 count will also be telling, because if this is unremarkable, then that makes opportunistic infection less likely. QuantiFERON gold was negative which is difficult to interpret given his HIV status. AFB sputum culture x1 was obtained and is pending. It appears that 2 additional Gram stain and sputum cultures were obtained as were AFB cultures on 05/16. Bronchoscopy can be considered to rule out infectious etiology. Other possibilities include cryptogenic organizing pneumonia which would require a lengthy course of systemic corticosteroids. Would defer bronchoscopy at this time until hypotension and severe anemia is improved or resolved. Unsure that the yield from bronchoscopy would be significant and it is negative fungal studies and cultures otherwise. I would like to see prior chest imaging from [facility] to compare for pursuing bronchoscopy. Some of the findings we are seeing on his most recent CT during this admission may be fibrotic changes related to his history of PJP, intubation and pneumothorax. Please obtain records from the outside facility including CT chest imaging. Echo noted with evidence of grade 1 diastolic dysfunction. RVSP 30 to 40 mmHg. No valvulopathy identified. 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 (2) HIV (human immunodeficiency virus infection): Plan: CD4 count pending. Patient on Biktarvy. Appreciate ID consult (3) Hypotension: Plan: ACTH stim test borderline. Recommend endocrinology consult to evaluate for the possibility of adrenal insufficiency. (4) Cough: Plan: Multifactorial related to fibrosis and possibly related to infectious etiology. Suspect patient has element of COPD given prior tobacco abuse and emphysema noted on CT chest. LAMA inhaler ordered. (5) LVH (left ventricular hypertrophy): Plan Thank you for the consult. Pulmonary will continue to follow along with you. Admission and Anticipated Discharge Date Admission Date: May 09, 2023 Subjective Patient seen and evaluated at bedside. He reports persistent cough that has been present for some time now. Otherwise, he offers no new complaints today. Review of Systems Review of Systems: Unchanged from admission. Physical Exam Physical Exam: VITAL SIGNS - Vital signs and nursing notes were reviewed. GENERAL - 42-year-old male appearing his stated age who is in no acute distress. Communicates well with provider and answers questions appropriately. LUNGS - Chest wall evaluation demonstrates normal chest wall A:P diameter. Auscultation reveals no wheezes, rales, or rhonchi. CARDIAC - RRR with S1/S2. No murmur, rubs, or gallops appreciated. PSYCH - A&Ox3 and cooperates fully with examiner. Pt is very pleasant and interacts well with examiner. Results & Data Results & Data Vital Signs (Past 12 Hours) Vital Signs Temp Pulse Pulse Resp BP Pulse Ox O2 Del Method 05/17/23 05:00 36.7 C 05/17/23 03:00 38.1 C H 116 H 20 98/57 L 93 Room Air 05/16/23 23:00 37.2 C 96 H 18 91/60 L 95 Room Air 05/16/23 22:57 103 H 05/16/23 20:00 Room Air PG Care Time/CCT Total # of Minutes Spent Total Time Spent with Patient: Total time spent is greater than 50% in coordination of care (as documented) at patient's floor/unit and/or counseling patient: Coding Level of Care Code 22979 SUB INP/OBS CARE 2/35MIN Diagnoses Abnormal CT scan, chest R93.89 HIV (human immunodeficiency virus infection) B20 Hypotension I95.9 Cough R05.9 LVH (left ventricular hypertrophy) I51.7
[2023-05-17] MEDS: BIKTARVY PO SCH (09:03)
[2023-05-17] MEDS: SULFAMETHOXAZOLE/TRIMETHOPRIM DS 800/160MG TAB PO SCH ×2 (09:03→13:28)
[2023-05-17] MEDS: PANTOprazole 40 MG in SYRINGE 0 ML IV SCH ×2 (09:03→20:01)
[2023-05-17] MEDS: UMECLIDINIUM BROMIDE 62.5MCG/BLISTER 7 PUFFS/INHALER INH SCH (09:04)
[2023-05-17] MEDS: FOLIC ACID 1 MG in SYRINGE 9.8 ML IV SCH (09:04)
[2023-05-17] MEDS: DICYCLOMINE HCL 10 MG CAP PO PRN (09:48)
[2023-05-17] MEDS: LOPERAMIDE HCL 2 MG CAP PO PRN (09:48)
[2023-05-17] MEDS: POTASSIUM CHLORIDE / WTR 10 MEQ/100 ML PLCT IV SCH ×4 (09:48→16:26)
[2023-05-17] MEDS: COUGH DROP (SUGAR FREE) LOZ 24 LOZ/1 BOX BUCCAL PRN (13:27)
[2023-05-17 13:37] LABS: Immunoglobulin A 145.8 mg/dl (70-400); Immunoglobulin M 53.3 mg/dl (45-281)
[2023-05-17 14:06] LABS: IgA Serum 157 mg/dL (47-310); Tis Trans IgA <1.0 U/mL
--- NOTE | 2023-05-17 16:55 | Infectious Disease Progress Nt ---
Date of Service May 17, 2023 Assessment & Plan (1) Diarrhea: (2) HIV (human immunodeficiency virus infection): (3) Hypotension: (4) Cough: Plan 42 yo M with h/o of HIV Bactrim), vitamin D deficiency, and FREDIS. [facility] due to worsening cough, and hypotension in the 80/50s this morning. History of collapsed lung and intubation in 2021 (hospitalized from October - Mar 2022). Hx of multiple blood transfusions from blood in stool during this hospitalization. He denies recent hemoptysis, melena, or blood in the stool/urine. No recent changes in diet, but decreased appetite. He endorses diarrhea multiple times per night this past week; increased frequency. Dry cough ongoing x 1.5 month, but getting worse. Patient endorses mild SOB on exertion over the past few weeks. Hx of PJP pneumonia. Hypotensive at 90/61 on arrival; vitals otherwise stable. Temp 37, BP low at 90s/60s, WBC 15.9 AST/ALT 9/3, LDH 146 05/10 sputum cx light normal rosa, 05/09 blood cx NGTD, MRSA nares negative, GI stool PCR negative, RVP negative CT Chest: Patchy and irregular areas of consolidation, mostly in RML, with with upper lung zone predominant groundglass densities may also be related to the chronic lung disease however a superimposed infectious or inflammatory pneumonitis could appear similarly. Bronchiectasis with blebs and bulla CT A/P A few mildly enlarged mesenteric lymph nodes. Apparent wall thickening of multiple jejunal loops. This is nonspecific, Cholelithiasis and possible stone GB wall thickening. #HIV/AIDS On Biktarvy, Bactrim #Pneumonia, consolidation and GGO #Hypotension #weight loss #Currently Incarcerated # Persistent Leukocytosis # History of PJP Micro BC 05/09 sterile sputum cx 05/10 NG sputum cx AFB 05/14 P sputum cx AFB 05/15 P sputum cx AFB 05/16 P stool/gi PCR neg Resp PCR neg Beta D glucan <31 QFN neg cd4 69,( 5%) , HIV VL <20, detected AV/ABX Biktarvy Cefepime 05/09-05/11 Azithromycin 05/11- Bactrim 05/11-ongoing vanco 05/09 Discussion: HIV patientCD4 ( 87 in 01/2023) #Pneumonia, consolidation and GGO #Hypotension #weight loss #Currently Incarcerated AV/ABX Biktarvy Cefepime 05/10- Azithromycin 05/11- Bactrim Discussion: HIV patient Cd4 < 100 at 69 ( 5%) w/ VL <20. If if cd4 , is excpected to decline in present acute illness, it was also <100 in 01/2023. He is at risk for OIS including PJP, espec with GGO on imaging, ROSA/MAC, TB (current and prior incarcerations). Would consider additional fungal etiology such as crypto His hypotension may be reflective of failure to thrive, Adrenal insufficiency, fungal infections , MTB or disseminated ROSA/MAC potentially. Need to rule out opportunistic infections. His persistent diarrhea may also be secondary to an OI . GI pcr panel neg . His bd glucan is < 31 and PJP pcr sputum,although not diagnostic make PJP less likely Although QFN negative, his CD4 is low and he may not be able to mount a response. He is pending r/o pulm TB, disseminated ROSA/MAC. We dont have an alternative dx for his presentation at this time [id number],, h/h 6.9/21.3 ASt 8, Alt 4 RECOMMEND -Continue Biktarvy -I will switch Bactrim to prophy dose as active PjP is less likely as per above . -Continue Airborne isolation pending AFB smear/culture q8 hours x 3 results -FU urine histoplasma ag Cryptococcal ag -It appears he only received Cefepime for 3 days . Cefepime was stopped on 05/11, I will restarted 05/16 plan is to complete 7 d of therapy _ I stopped Azithro He is severely immunocompromised with recent cd4 < 100 so he is at risk for Pulmonary and disseminated MAC/ROSA wes with hypotension. Azithro is partial therapy. Stopped to decrease development of R pending AFB in sputum and blood - Fu AFB blood ordered ID will continue to follow. Aisha Elmore MD, MPH Infectious Disease ID Connect [facility] ID [facility] Call [phone] with questions Admission and Anticipated Discharge Date Admission Date: May 09, 2023 Subjective This patient recommendation is based on a telemedicine consult request which was completed asynchronously through chart review and information provided by the primary physician. The patient was not seen or examined today. The evaluation is consultative in nature and all patient care and treatment decisions can either be accepted or rejected by the patient's primary hospital-based treating physician using their own independent medical judgment for their patient. Time Spent Reviewing Chart: 11 - 20 minutes CD4 is 69 ( 5%) HIV VL detected but < 20 H/H 6.9/21.3 Hypotension On RA sputum PJP PCR not detected Results & Data Vital Signs (Past 12 Hours) Vital Signs Temp Pulse Pulse Resp BP BP Pulse Ox 05/17/23 15:14 37.4 C 96 H 20 92/60 L 94 05/17/23 14:47 37.4 C 81 20 92/60 L 96 05/17/23 13:47 37.1 C 94 H 20 97/57 L 94 05/17/23 13:17 37.2 C 96 H 20 87/59 L 94 05/17/23 13:02 37 C 102 H 20 96/56 L 96 05/17/23 12:42 36.9 C 104 H 20 95/54 L 98 05/17/23 12:40 36.9 C 104 H 20 95/54 L 98 05/17/23 12:00 36.9 C 104 H 20 96/54 L 98 05/17/23 08:30 36.9 C 107 H 16 95/59 L 94 05/17/23 08:00 05/17/23 05:00 36.7 C O2 Del Method O2 Flow Rate 05/17/23 15:14 0 05/17/23 14:47 05/17/23 13:47 05/17/23 13:17 05/17/23 13:02 05/17/23 12:42 0 05/17/23 12:40 Room Air 05/17/23 12:00 Room Air 05/17/23 08:30 Room Air 05/17/23 08:00 Room Air 05/17/23 05:00 Laboratory Results Short CBC 05/17/23 Range/Units 06:06 WBC 13.48 H (4.8-10.8) K/ul Hgb 6.9 L* (14.0-18.0) g/dl Hct 21.3 L (42.0-52.0) % Plt Count 255 (130-400) K/uL BMP 05/17/23 06:06 Sodium 135 L Potassium 3.2 L Chloride 107 Carbon Dioxide 23 BUN 9 Creatinine 0.88 Glucose 78 Calcium 7.5 L Liver Function 05/17/23 Range/Units 06:06 Total Bilirubin 0.4 (0.2-1.0) mg/dl AST 8 L (13-39) U/L ALT 4 L (7-52) U/L Alkaline Phosphatase 62 (34-104) U/L Albumin 2.0 L (3.4-5.0) gm/dl Diagnostic Findings Microbiology 05/16/23 11:00 Sputum, Expectorated Acid Fast Bacilli Smear - Final 05/16/23 Unknown Sputum, Expectorated Acid Fast Bacilli Smear - Final 05/15/23 Unknown Sputum, Expectorated Acid Fast Bacilli Smear - Final 05/15/23 Unknown Sputum, Expectorated Gram Stain - Final 05/15/23 Unknown Sputum, Expectorated Sputum Culture - Final Heavy normal rosa. 05/14/23 23:00 Sputum, Expectorated Gram Stain - Final 05/14/23 23:00 Sputum, Expectorated Sputum Culture - Final Heavy normal rosa. 05/14/23 23:00 Sputum, Expectorated Acid Fast Bacilli Smear - Final 05/09/23 11:39 Blood Aerobic Blood Culture - Final No growth in Aerobic bottle after 5 days. 05/09/23 11:39 Blood Anaerobic Blood Culture - Final 05/09/23 11:20 Blood Aerobic Blood Culture - Final No growth in Aerobic bottle after 5 days. 05/09/23 11:20 Blood Anaerobic Blood Culture - Final No growth in Anaerobic bottle after 5 days. 05/10/23 16:16 Sputum, Expectorated Gram Stain - Final 05/10/23 16:16 Sputum, Expectorated Sputum Culture - Final Moderate normal rosa. Hepatobiliary Scan Nuclear Medicine 05/16/23 10:06 NUCLEAR MEDICINE HEPATOBILIARY SCAN HISTORY: Cholelithiasis, diarrhea, abnormal CT scan COMPARISON: Abdomen and pelvis CT 05/09/2023. TECHNIQUE: Immediately following the intravenous administration of 5.1 mCi Tc- 99m Choletec, dynamic anterior abdominal imaging was performed. FINDINGS: Uniform hepatic tracer accumulation is shown. Prompt intrahepatic biliary excretion is seen. The gallbladder, common bile duct, and small bowel are all visualized by 40 minutes. This appearance represents the normal sequence of biliary excretion. IMPRESSION: 1. No evidence for cystic duct obstruction. ACT 112: Negative or not required by law. Electronically signed by: Paco Pugh M.D. 05/16/2023 1:41 PM Medications Administered Home Medications Medication Instructions Recorded Confirmed Last Taken Biktarvy 1 tab PO DAILY 05/09/23 05/09/23 Unknown cholecalciferol (vitamin D3) 25 25 mcg PO DAILY 05/09/23 05/09/23 Unknown mcg (1,000 unit) tablet ergocalciferol (vitamin D2) 1,250 50,000 unit PO . WEEKLY ON Fridays05/09/23 05/09/23 Unknown mcg (50,000 unit) capsule (Drisdol) ferrous sulfate 324 mg (65 mg 324 mg PO DAILY 05/09/23 05/09/23 Unknown iron) tablet,delayed release sulfamethoxazole 800 1 tab PO DAILY 05/09/23 05/09/23 Unknown mg-trimethoprim 160 mg tablet (Bactrim DS) Active Medications Generic Name Dose Route Start Last Admin Trade Name Freq PRN Reason Stop Dose Admin Acetaminophen 650 mg 05/09/23 15:33 05/17/23 03:25 Acetaminophen 325 Mg Tab PO 06/08/23 15:32 650 mg Q4H PRN Administration pain (1-4) /fever Bictegravir/Emtricitabine/Tenofovir 1 each 05/10/23 09:00 05/17/23 09:03 Biktarvy PO 06/09/23 08:59 1 each DAILY JANES Administration Protocol Dicyclomine HCl 10 mg 05/16/23 09:41 05/17/23 09:48 Dicyclomine Hcl 10 Mg Cap PO 06/15/23 09:40 10 mg TID PRN Administration Diarrhea Guaifenesin/Codeine Phosphate 10 ml 05/11/23 09:39 05/17/23 00:55 Guaifenesin/Codeine 200mg/20mg 10ml Udc PO 06/10/23 09:38 10 ml Q6H PRN Administration Cough Folic Acid 1 mg/ Syringe 10 mls @ 5 mls/min 05/10/23 09:00 05/17/23 09:04 IV 06/09/23 08:59 5 mls/min QAM JANES Administration Pantoprazole Sodium 40 mg/ 10 mls @ 5 mls/min 05/11/23 09:00 05/17/23 09:03 Syringe IV 06/10/23 08:59 5 mls/min BID JANES Administration Cefepime HCl 2,000 mg/ Syringe 20 mls @ 5 mls/min 05/16/23 17:00 05/17/23 16:26 IV 05/23/23 16:59 5 mls/min Q8H JANES Administration Protocol Loperamide HCl 2 mg 05/14/23 14:24 05/17/23 09:48 Loperamide Hcl 2 Mg Cap PO 06/13/23 14:23 2 mg Q8H PRN Administration Diarrhea Menthol 1 tunde 05/10/23 10:21 05/17/23 13:27 Cough Drop (Sugar Free) Tunde 24 Tunde/1 Box BUCCAL 06/09/23 10:20 1 tunde UD PRN Administration Sore Throat Promethazine HCl 12.5 mg 05/11/23 13:04 05/17/23 01:15 Promethazine Hcl 12.5 Mg/10 Ml Udp PO 06/10/23 13:03 12.5 mg Q6H PRN Administration Cough Trimethoprim/Sulfamethoxazole 2 tab 05/16/23 21:00 05/17/23 13:28 Sulfamethoxazole/Trimethoprim Ds 800/160mg Tab PO 06/15/23 20:59 2 tab TID JANES Administration Umeclidinium [place] 1 puffs 05/15/23 16:15 05/17/23 09:04 Umeclidinium [place] 62.5mcg/Blister 7 Puffs/Inhaler INH 06/14/23 16:14 1 puffs DAILY JANES Administration
[2023-05-17 18:30] LABS: Hematocrit (blood only) 24.7 % (42.0-52.0)
--- NOTE | 2023-05-17 22:04 | Hospitalist Progress Note ---
Date of Service May 17, 2023 Assessment & Plan (1) Cough: Plan: atypical Pneumonia or pneumonitis cefepime and azithromycin covering gram neg and atypical bacteria Pt remains in the hospital while sputum cultures for TB are collected and processes, finalizing GI workup CXR showed "right lung with apparent pleural thickening" treating for gram negative pneumonia adding azithro for atypials ID consult given immune deficiency did send Quanterferon gold which resulted negative and with immune suppression, pulmonary med also wants 3 sputum AFB samples with diarrhea , stool for Giardia, C Diff negative, stool biofire negative beta glucan is low which is good to not be concerned for pjp or fungus History of collapsed lung and intubation in 2021, previous pleurodesis CTA chest revealed no pulmonary emboli, but identified bronchiectasis with chronic interstitial lung disease pulmonary Biofire negative Sputum culture not significant, Blood culture negative to date MRSA Screen negative; vancomycin discontinued Continue cefepime and azithromycin, , day 5 azithro is 05/16/23 Continue Bactrim hx of PJP PNA; negative pulm recc ECHO, echo results are normal, am cortisol augmented appropriately Cefepime was resumed on 05/17/23 will monitor. Hemoglobin dropped below 7 and patient required a transfusion. (2) Hypotension: Plan: Unclear etiology , hypovolemia from diarrhea, pt also anemia and did receive 1 U prbc with evidence of iron deficiency takes iron daily may account for heme positive stools will have venofer 05/10,, 200 mg each dose heme eval (3) Anemia: Plan: microcytic anemia on arrival, acute on chronic iron deficiency anemia, unclear risk Clinically, patient denies melena and blood in stool/urine, No signs of active bleeding Fecal occult stool positive; hx of GI bleeds also history of oral iron hgb has been variable but stable >7 Protonix 40 mg IV bid Folic acid low at 4.31 Give folic acid 1 mg IV QAM B12 is normal profound iron deficiency supplementing iron as above spoke to hematology sap solutions architect, check haptoglobin, retic, hemoglobin electrophoresis, peripheral smear per pulm augmented cosyntropin test recommend continued iron supplementation, has recieved 600mg in venofer and approx 200 in 1 u prbc, will recommend another 400mg will infuse on 05/17/23 gi consult with recurrent diarrhea, persistent anemia Continue Imodium supportively. -Add Dicyclomine 10 mg TID prn. -Obtain HIDA to assess biliary findings on CT. If T bili rises or develops abdominal pain, would consider MRCP for further evaluation as well. -Outpatient EGD & colonoscopy when acute pulmonary issues resolve (would plan to biopsy for CMV) -Celiac panel pending, along with other studies as ordered after hematology evaluation given anemia Ordered transfusion of 1 PRBC on 05/17 (4) HIV (human immunodeficiency virus infection): Plan: Dx in 2013, treatment with [facility] On bactrim ds tid; reports he is taking it consistently CD4: 4.03 CD absolute: 8.7 repeat cell count levels pending sees Rose Mccray at [facility] for HIV care Continue Biktarvy (5) Diarrhea: Plan: Stool panel negative for infection Positive fecal occult blood GI work up underway Plan moderate protein calorie malnutrition Full code VTE PPx: SCDs (hold chemical DVT PPx in the setting of GI bleed rule out) Admission and Anticipated Discharge Date Admission Date: May 09, 2023 Subjective 42 yo male reports no new symptoms. He continues to be coughing. 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, lungs coarse but clear Results & Data Results & Data Vital Signs (Past 12 Hours) Vital Signs Temp Pulse Pulse Resp BP BP Pulse Ox 05/17/23 20:58 05/17/23 19:15 37.6 C H 97 H 20 92/47 L 92 05/17/23 15:14 37.4 C 96 H 20 92/60 L 94 05/17/23 14:47 37.4 C 81 20 92/60 L 96 05/17/23 13:47 37.1 C 94 H 20 97/57 L 94 05/17/23 13:17 37.2 C 96 H 20 87/59 L 94 05/17/23 13:02 37 C 102 H 20 96/56 L 96 05/17/23 12:42 36.9 C 104 H 20 95/54 L 98 05/17/23 12:40 36.9 C 104 H 20 95/54 L 98 05/17/23 12:00 36.9 C 104 H 20 96/54 L 98 O2 Del Method O2 Flow Rate 05/17/23 20:58 Room Air 05/17/23 19:15 Room Air 05/17/23 15:14 0 05/17/23 14:47 05/17/23 13:47 05/17/23 13:17 05/17/23 13:02 05/17/23 12:42 0 05/17/23 12:40 Room Air 05/17/23 12:00 Room Air PG Care Time/CCT Total # of Minutes Spent Total Time Spent with Patient: Total time spent is greater than 50% in coordination of care (as documented) at patient's floor/unit and/or counseling patient: Coding Level of Care Code 91677 SUB INP/OBS CARE 3/50MIN Diagnoses Cough R05.9 Hypotension I95.9 Anemia D64.9 HIV (human immunodeficiency virus infection) B20 Diarrhea R19.7 Time Spent (min) 50
[2023-05-18] MEDS: DICYCLOMINE HCL 10 MG CAP PO PRN ×2 (00:09→20:51)
[2023-05-18] MEDS: CEFEPIME 2,000 MG in SYRINGE 0 ML IV SCH ×3 (00:11→17:22)
--- NOTE | 2023-05-18 06:33 | Hospitalist Progress Note ---
Date of Service May 17, 2023 Assessment & Plan (1) Anemia: Plan: Await hemoglobin electrophoresis but as previous the overall picture seems much more indicative of iron deficiency than other major sickle cell or other hemoglobinopathy crisis. GI is in the process of further defining the issues with his GI tract, he does not describe long-term melena/hematochezia and there may be some concern over absorptive issues. Between his Venofer and transfusions to date he has received proxy 700 mg of intravenous iron. And fall short of his overall deficit which is probably in the range of 7376-2848 mg. Would suggest additional Venofer given as 200 mg every other day for 3 doses. We will recheck folic acid to make sure that he is absorbing that better as well Plan Suggest Venofer 200 mg every other day for 3 doses We will recheck folic acid to make sure that we have restored adequate levels Await hemoglobin electrophoresis Await ongoing GI review Admission and Anticipated Discharge Date Admission Date: May 09, 2023 Subjective No major complaints at rest though he reports multiple bowel movements per day continue. He is not sure whether they are bloody or not. He is able to cross the room to his commode without becoming excessively breathless and is having no cardiac symptoms Physical Exam Physical Exam: Vital signs stable (systolic 51350 seems to be his "normal") No scleral icterus or jaundice, lungs are clear cardiac rhythm is regular and abdomen shows no acute guarding or tenderness. Results & Data Results & Data Vital Signs (Past 12 Hours) Vital Signs Temp Pulse Resp BP Pulse Ox O2 Del Method 05/18/23 02:46 37.1 C 99 H 20 95/58 L 94 Room Air 05/17/23 23:51 37.1 C 91 H 18 88/57 L 91 Room Air 05/17/23 20:58 Room Air 05/17/23 19:15 37.6 C H 97 H 20 92/47 L 92 Room Air PG Care Time/CCT Total # of Minutes Spent Total Time Spent with Patient: Total time spent is greater than 50% in coordination of care (as documented) at patient's floor/unit and/or counseling patient: Coding Level of Care Code 72668 SUB INP/OBS CARE 25MIN Diagnoses Anemia D64.9 Comment This note documents a visit performed 05/17/2023
[2023-05-18 06:57] LABS: Hematocrit (blood only) 24.7 % (42.0-52.0); Mean Corpuscular Hemoglobin 21.5 pg (25.0-34.0); Mean Corpuscular Hgb Conc 32.4 g/dL (32.0-36.0); Mean Corpuscular Volume 66.4 fL (80.0-100.0); Mean Platelet Volume 9.8 fL (9.4-12.4); Platelet Count 267 K/uL (130-400); RDW Coefficient of Variation 21.8 % (11.5-14.5); Red Blood Count 3.72 M/uL (4.70-6.10); White Blood Count 15.77 K/ul (4.8-10.8)
[2023-05-18 07:05] LABS: Albumin Globulin Ratio 0.5 (0.9-2); Albumin Level 2.1 gm/dl (3.4-5.0); BUN Creatinine Ratio 10.7 (10-20); Bilirubin,Total 0.4 mg/dl (0.2-1.0); C Reactive Protein 21.22 mg/dl (0-0.5); Calcium 7.9 mg/dl (8.6-10.3); Creatinine Clr Calc Pharmacy 96.4 ml/min; Est GFR (African American) 104.8 ml/min; Est GFR (Non-African American) 90.4 ml/min; Globulin 3.9 gm/dl (2.5-4.0); Potassium 3.7 mmol/L (3.5-5.1)
[2023-05-18] MEDS: PROMETHAZINE HCL 12.5 MG/10 ML UDP PO PRN ×2 (08:30→22:30)
[2023-05-18] MEDS: FOLIC ACID 1 MG in SYRINGE 9.8 ML IV SCH (08:30)
[2023-05-18] MEDS: PANTOprazole 40 MG in SYRINGE 0 ML IV SCH (08:30)
[2023-05-18] MEDS: SULFAMETHOXAZOLE/TRIMETHOPRIM DS 800/160MG TAB PO SCH (08:30)
[2023-05-18] MEDS: BIKTARVY PO SCH (08:32)
[2023-05-18] MEDS: UMECLIDINIUM BROMIDE 62.5MCG/BLISTER 7 PUFFS/INHALER INH SCH (08:32)
--- NOTE | 2023-05-18 08:34 | Pulmonology Progress Note ---
Date of Service May 18, 2023 Assessment & Plan (1) Abnormal CT scan, chest: Plan: Contrast-enhanced CT chest personally reviewed from 05/09/2023 revealing trace bilateral effusions, calcified pleural plaques, biapical fibrotic changes and cylindrical bronchiectasis. Patient also with biapical blebs. Patchy irregular areas of consolidation noted in the lingula, right middle lobe and upper lung vuong. No prior chest imaging is available for review. Please obtain any prior CT chest or chest x-ray imaging from outside facility. Differential is broad especially considering his HIV status. CD4 count is low. Infectious etiologies remain high in the differential. Invasive fungal infection seems less likely given the unremarkable beta D glucan. Invasive pulmonary aspergillosis can present with nodular infiltrates in immun ocompromised patients, but with a low BDG that remains unlikely. CD4 count will also be telling, because if this is unremarkable, then that makes opportunistic infection less likely. QuantiFERON gold was negative which is difficult to interpret given his HIV status. AFB sputum culture x1 was obtained and is pending. It appears that 2 additional Gram stain and sputum cultures were obtained as were AFB cultures on 05/16. Bronchoscopy can be considered to rule out infectious etiology. Other possibilities include cryptogenic organizing pneumonia which would require a lengthy course of systemic corticosteroids. Would defer bronchoscopy at this time until hypotension and severe anemia is improved or resolved. Unsure that the yield from bronchoscopy would be significant and it is negative fungal studies and cultures otherwise. I would like to see prior chest imaging from [facility] to compare for pursuing bronchoscopy. Some of the findings we are seeing on his most recent CT during this admission may be fibrotic changes related to his history of PJP, intubation and pneumothorax. Please obtain records from the outside facility including CT chest imaging. Echo noted with evidence of grade 1 diastolic dysfunction. RVSP 30 to 40 mmHg. No valvulopathy identified. 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 (2) HIV (human immunodeficiency virus infection): Plan: CD4 count pending. Patient on Biktarvy. Appreciate ID consult (3) Hypotension: Plan: ACTH stim test borderline. Recommend endocrinology consult to evaluate for the possibility of adrenal insufficiency. (4) Cough: Plan: Multifactorial related to fibrosis and possibly related to infectious etiology. Suspect patient has element of COPD given prior tobacco abuse and emphysema noted on CT chest. LAMA inhaler ordered. (5) LVH (left ventricular hypertrophy): Plan Thank you for the consult. Pulmonary medicine will sign off at this time. Admission and Anticipated Discharge Date Admission Date: May 09, 2023 Supervising Physician Co-Signing Physician Notes Agree with note as outlined above. Doubtful of opportunistic pulmonary infection at this time given negative beta glucan and negative AFB smears. Patient to be taken off airborne precautions. CD4 count notably quite low recommend prophylaxis as per ID for ROSA and PJP. Patient essentially with failure to thrive picture due to advanced HIV. General medical care per primary team. No further recommendations or interventions at this time. Pulmonary to sign off. Please call with questions. Subjective Patient seen and evaluated again today. He has an ongoing cough which is unchanged for the last several months. No new pulmonary symptoms today. Review of Systems Review of Systems: Unchanged from admission. Physical Exam Physical Exam: VITAL SIGNS - Vital signs and nursing notes were reviewed. GENERAL - 42-year-old male appearing his stated age who is in no acute distress. Communicates well with provider and answers questions appropriately. LUNGS - Chest wall evaluation demonstrates normal chest wall A:P diameter. Auscultation reveals no wheezes, rales, or rhonchi. CARDIAC - RRR with S1/S2. No murmur, rubs, or gallops appreciated. PSYCH - A&Ox3 and cooperates fully with examiner. Pt is very pleasant and interacts well with examiner. Results & Data Results & Data Vital Signs (Past 12 Hours) Vital Signs Temp Pulse Pulse Resp BP Pulse Ox O2 Del Method 05/18/23 08:27 36.9 C 103 H 16 93/61 L 93 Room Air 05/18/23 07:11 92 H 05/18/23 02:46 37.1 C 99 H 20 95/58 L 94 Room Air 05/17/23 23:51 37.1 C 91 H 18 88/57 L 91 Room Air 05/17/23 20:58 Room Air PG Care Time/CCT Total # of Minutes Spent Total Time Spent with Patient: Total time spent is greater than 50% in coordination of care (as documented) at patient's floor/unit and/or counseling patient: Coding Level of Care Code 40637 SUB INP/OBS CARE 2/35MIN Diagnoses Abnormal CT scan, chest R93.89 HIV (human immunodeficiency virus infection) B20 Hypotension I95.9 Cough R05.9 LVH (left ventricular hypertrophy) I51.7
--- NOTE | 2023-05-18 15:39 | Infectious Disease Progress Nt ---
Date of Service May 18, 2023 Assessment & Plan (1) Diarrhea: (2) HIV (human immunodeficiency virus infection): (3) Hypotension: (4) Cough: Plan 42 yo M with h/o of HIV Bactrim), vitamin D deficiency, and FREDIS. He presented from [facility] due to worsening cough, and hypotension in the 80/50s this morning. History of collapsed lung and intubation in 2021 (hospitalized from October - Mar 2022). Hx of multiple blood transfusions from blood in stool during this hospitalization. He denies recent hemoptysis, melena, or blood in the stool/urine. No recent changes in diet, but decreased appetite. He endorses diarrhea multiple times per night this past week; increased frequency. Dry cough ongoing x 1.5 month, but getting worse. Patient endorses mild SOB on exertion over the past few weeks. Hx of PJP pneumonia. Hypotensive at 90/61 on arrival; vitals otherwise stable. Temp 37, BP low at 90s/60s, WBC 15.9 AST/ALT 9/3, LDH 146 05/10 sputum cx light normal rosa, 05/09 blood cx NGTD, MRSA nares negative, GI stool PCR negative, RVP negative CT Chest: Patchy and irregular areas of consolidation, mostly in RML, with with upper lung zone predominant groundglass densities may also be related to the chronic lung disease however a superimposed infectious or inflammatory pneumonitis could appear similarly. Bronchiectasis with blebs and bulla CT A/P A few mildly enlarged mesenteric lymph nodes. Apparent wall thickening of multiple jejunal loops. This is nonspecific, Cholelithiasis and possible stone GB wall thickening. #HIV/AIDS On Biktarvy, Bactrim #Pneumonia, consolidation and GGO #Hypotension #weight loss #Currently Incarcerated # Persistent Leukocytosis # History of PJP Micro BC 05/09 sterile sputum cx 05/10., 05/14, 05/15 NG sputum cx AFB1 05/14 P sputum cx HDI508/31 P sputum cx AFB3 05/16 P sputum cx AFB4 05/16 P stool/gi PCR neg Resp PCR neg Beta D glucan <31 QFN neg cd4 69,( 5%) , HIV VL <20, detected AV/ABX Biktarvy Cefepime 05/09-05/11 , 05/16- ongoing Azithromycin 05/11-05/16 Bactrim 05/11-ongoing vanco 05/09 Discussion: HIV patientCD4 ( 87 in 01/2023) #Pneumonia, consolidation and GGO #Hypotension #weight loss #Currently Incarcerated AV/ABX Biktarvy Cefepime 05/10- Azithromycin 05/11- Bactrim Discussion: HIV patient Cd4 < 100 at 69 ( 5%) w/ VL <20. If if cd4 , is excpected to decline in present acute illness, it was also <100 in 01/2023. He is at risk for OIS including PJP, espec with GGO on imaging, ROSA/MAC, TB (current and prior incarcerations). Would consider additional fungal etiology such as crypto His hypotension may be reflective of failure to thrive, Adrenal insufficiency, fungal infections , MTB or disseminated ROSA/MAC potentially. Need to rule out opportunistic infections. His persistent diarrhea may also be secondary to an OI . GI pcr panel neg . His bd glucan is < 31 and PJP pcr sputum,although not diagnostic make PJP less likely Although QFN negative, his CD4 is low and he may not be able to mount a response. He is pending r/o pulm TB, disseminated ROSA/MAC. We dont have an alternative dx for his presentation at this time WBC 15.77,, h/h 8/24.7, cr 1.03 RECOMMEND -Continue Biktarvy -continue Bactrim prophy dose as active PjP is less likely as per above . -Continue Airborne isolation pending AFB smear/culture q8 hours x 3 results -FU urine histoplasma ag, Cryptococcal ag -It appears he only received Cefepime for 3 days . Cefepime was stopped on 05/11, I restarted 05/16 plan is to complete 7 d of therapy _ I stopped Azithro 05/16 He is severely immunocompromised with recent cd4 < 100 so he is at risk for Pulmonary and disseminated MAC/ROSA wes with hypotension. Azithro is partial therapy. Stopped to decrease development of R pending AFB in sputum and blood - Fu AFB blood ordered ID will continue to follow. Aisha Elmore MD, MPH Infectious Disease ID [facility], ID Division Call [phone] with questions Admission and Anticipated Discharge Date Admission Date: May 09, 2023 Subjective This patient recommendation is based on a telemedicine consult request which was completed asynchronously through chart review and information provided by the primary physician. The patient was not seen or examined today. The evaluation is consultative in nature and all patient care and treatment decisions can either be accepted or rejected by the patient's primary hospital-based treating physician using their own independent medical judgment for their patient. Time Spent Reviewing Chart: 11 - 20 minutes afebrile, WBC 15.77 Results & Data Vital Signs (Past 12 Hours) Vital Signs Temp Pulse Pulse Resp BP Pulse Ox O2 Del Method 05/18/23 11:59 37.1 C 91 H 18 97/61 L 94 Room Air 05/18/23 08:54 Room Air 05/18/23 08:27 36.9 C 103 H 16 93/61 L 93 Room Air 05/18/23 07:11 92 H Diagnostic Findings Short CBC 05/17/23 05/18/23 Range/Units 17:56 06:01 WBC 15.77 H (4.8-10.8) K/ul Hgb 8.0 L 8.0 L (14.0-18.0) g/dl Hct 24.7 L 24.7 L (42.0-52.0) % Plt Count 267 (130-400) K/uL BMP 05/18/23 06:01 Sodium 135 L Potassium 3.7 Chloride 107 Carbon Dioxide 23 BUN 11 Creatinine 1.03 Glucose 77 Calcium 7.9 L Liver Function 05/18/23 Range/Units 06:01 Total Bilirubin 0.4 (0.2-1.0) mg/dl AST 8 L (13-39) U/L ALT 4 L (7-52) U/L Alkaline Phosphatase 69 (34-104) U/L Albumin 2.1 L (3.4-5.0) gm/dl Microbiology 05/16/23 11:00 Sputum, Expectorated Acid Fast Bacilli Smear - Final 05/16/23 Unknown Sputum, Expectorated Acid Fast Bacilli Smear - Final 05/15/23 Unknown Sputum, Expectorated Acid Fast Bacilli Smear - Final 05/15/23 Unknown Sputum, Expectorated Gram Stain - Final 05/15/23 Unknown Sputum, Expectorated Sputum Culture - Final Heavy normal rosa. 05/14/23 23:00 Sputum, Expectorated Gram Stain - Final 05/14/23 23:00 Sputum, Expectorated Sputum Culture - Final Heavy normal rosa. 05/14/23 23:00 Sputum, Expectorated Acid Fast Bacilli Smear - Final 05/09/23 11:39 Blood Aerobic Blood Culture - Final No growth in Aerobic bottle after 5 days. 05/09/23 11:39 Blood Anaerobic Blood Culture - Final 05/09/23 11:20 Blood Aerobic Blood Culture - Final No growth in Aerobic bottle after 5 days. 05/09/23 11:20 Blood Anaerobic Blood Culture - Final No growth in Anaerobic bottle after 5 days. 05/10/23 16:16 Sputum, Expectorated Gram Stain - Final 05/10/23 16:16 Sputum, Expectorated Sputum Culture - Final Moderate normal rosa. Hepatobiliary Scan Nuclear Medicine 05/16/23 10:06 NUCLEAR MEDICINE HEPATOBILIARY SCAN HISTORY: Cholelithiasis, diarrhea, abnormal CT scan COMPARISON: Abdomen and pelvis CT 05/09/2023. TECHNIQUE: Immediately following the intravenous administration of 5.1 mCi Tc- 99m Choletec, dynamic anterior abdominal imaging was performed. FINDINGS: Uniform hepatic tracer accumulation is shown. Prompt intrahepatic biliary excret ion is seen. The gallbladder, common bile duct, and small bowel are all visualized by 40 minutes. This appearance represents the normal sequence of biliary excretion. IMPRESSION: 1. No evidence for cystic duct obstruction. ACT 112: Negative or not required by law. Electronically signed by: Paco Pugh M.D. 05/16/2023 1:41 PM Medications Administered Home Medications Medication Instructions Recorded Confirmed Last Taken Biktarvy 1 tab PO DAILY 05/09/23 05/09/23 Unknown cholecalciferol (vitamin D3) 25 25 mcg PO DAILY 05/09/23 05/09/23 Unknown mcg (1,000 unit) tablet ergocalciferol (vitamin D2) 1,250 50,000 unit PO . WEEKLY ON Fridays05/09/23 05/09/23 Unknown mcg (50,000 unit) capsule (Drisdol) ferrous sulfate 324 mg (65 mg 324 mg PO DAILY 05/09/23 05/09/23 Unknown iron) tablet,delayed release sulfamethoxazole 800 1 tab PO DAILY 05/09/23 05/09/23 Unknown mg-trimethoprim 160 mg tablet (Bactrim DS) Active Medications Generic Name Dose Route Start Last Admin Trade Name Freq PRN Reason Stop Dose Admin Acetaminophen 650 mg 05/09/23 15:33 05/17/23 03:25 Acetaminophen 325 Mg Tab PO 06/08/23 15:32 650 mg Q4H PRN Administration pain (1-4) /fever Bictegravir/Emtricitabine/Tenofovir 1 each 05/10/23 09:00 05/18/23 08:32 Biktarvy PO 06/09/23 08:59 1 each DAILY JANES Administration Protocol Dicyclomine HCl 10 mg 05/16/23 09:41 05/18/23 00:09 Dicyclomine Hcl 10 Mg Cap PO 06/15/23 09:40 10 mg TID PRN Administration Diarrhea Guaifenesin/Codeine Phosphate 10 ml 05/11/23 09:39 05/17/23 00:55 Guaifenesin/Codeine 200mg/20mg 10ml Udc PO 06/10/23 09:38 10 ml Q6H PRN Administration Cough Cefepime HCl 2,000 mg/ Syringe 20 mls @ 5 mls/min 05/16/23 17:00 05/18/23 08:32 IV 05/23/23 16:59 5 mls/min Q8H JANES Administration Protocol Loperamide HCl 2 mg 05/14/23 14:24 05/17/23 09:48 Loperamide Hcl 2 Mg Cap PO 06/13/23 14:23 2 mg Q8H PRN Administration Diarrhea Menthol 1 tunde 05/10/23 10:21 05/17/23 13:27 Cough Drop (Sugar Free) Tunde 24 Tunde/1 Box BUCCAL 06/09/23 10:20 1 tunde UD PRN Administration Sore Throat Promethazine HCl 12.5 mg 05/11/23 13:04 05/18/23 08:30 Promethazine Hcl 12.5 Mg/10 Ml Udp PO 06/10/23 13:03 12.5 mg Q6H PRN Administration Cough Trimethoprim/Sulfamethoxazole 1 tab 05/18/23 09:00 05/18/23 08:30 Sulfamethoxazole/Trimethoprim Ds 800/160mg Tab PO 06/17/23 08:59 1 tab DAILY JANES Administration Umeclidinium [place]fa 1 puffs 05/15/23 16:15 05/18/23 08:32 Umeclidinium [place] 62.5mcg/Blister 7 Puffs/Inhaler INH 06/14/23 16:14 1 puffs DAILY JANES Administration
[2023-05-18] MEDS: LOPERAMIDE HCL 2 MG CAP PO PRN (17:28)
[2023-05-18] MEDS: PANTOprazole 40 MG TAB PO SCH (20:51)
[2023-05-18 21:38] LABS: HCT 25.2 % (38.5-50.0); HGB 7.2 g/dL (13.2-17.1); Haptoglobin 240 mg/dL (43-212); Hemoglobin E DNR %; Hemoglobin Variant 1 DNR; Hemoglobin Variant 2 DNR; MCH 20.8 pg (27.0-33.0); MCV 72.8 fL (80.0-100.0); RBC 3.46 Mill/uL (4.20-5.80); RDW 19.2 % (11.0-15.0)
--- NOTE | 2023-05-18 22:26 | Hospitalist Progress Note ---
Date of Service May 18, 2023 Assessment & Plan (1) Cough: Plan: atypical Pneumonia or pneumonitis cefepime and azithromycin covering gram neg and atypical bacteria Pt remains in the hospital while sputum cultures for TB are collected and processes, finalizing GI workup CXR showed "right lung with apparent pleural thickening" treating for gram negative pneumonia adding azithro for atypials ID consult given immune deficiency did send Quanterferon gold which resulted negative and with immune suppression, pulmonary med also wants 3 sputum AFB samples with diarrhea , stool for Giardia, C Diff negative, stool biofire negative beta glucan is low which is good to not be concerned for pjp or fungus History of collapsed lung and intubation in 2021, previous pleurodesis CTA chest revealed no pulmonary emboli, but identified bronchiectasis with chronic interstitial lung disease pulmonary Biofire negative Sputum culture not significant, Blood culture negative to date MRSA Screen negative; vancomycin discontinued Continue cefepime and azithromycin, , day 5 azithro is 05/16/23 Continue Bactrim hx of PJP PNA; negative pulm recc ECHO, echo results are normal, am cortisol augmented appropriately Cefepime was resumed on 05/17/23 will monitor. Hemoglobin dropped below 7 and patient required a transfusion.. Hemoglobin is steady at 05/18 (2) Hypotension: Plan: Unclear etiology , hypovolemia from diarrhea, pt also anemia and did receive 1 U prbc with evidence of iron deficiency takes iron daily may account for heme positive stools received venofer 05/10,27, May require endocrinology consult Sunday as his ACTH stim test was borderline. (3) Anemia: Plan: microcytic anemia on arrival, acute on chronic iron deficiency anemia, unclear risk Clinically, patient denies melena and blood in stool/urine, No signs of active bleeding Fecal occult stool positive; hx of GI bleeds also history of oral iron hgb has been variable but stable >7 Protonix 40 mg IV bid Folic acid low at 4.31 Give folic acid 1 mg IV QAM B12 is normal profound iron deficiency supplementing iron as above spoke to hematology union contract representative, check haptoglobin, retic, hemoglobin electrophoresis, peripheral smear per pulm augmented cosyntropin test recommend continued iron supplementation, has recieved 600mg in venofer and approx 200 in 1 u prbc, will recommend another 400mg will infuse on 05/17/23 gi consult with recurrent diarrhea, persistent anemia Continue Imodium supportively. -Add Dicyclomine 10 mg TID prn. -Obtain HIDA to assess biliary findings on CT. If T bili rises or develops abdominal pain, would consider MRCP for further evaluation as well. -Outpatient EGD & colonoscopy when acute pulmonary issues resolve (would plan to biopsy for CMV) -Celiac panel pending, along with other studies as ordered after hematology evaluation given anemia Ordered transfusion of 1 PRBC on 05/17 Hemoglobin is steady on 05/18 (4) Abnormal CT scan, chest: Plan: Appreciate input from Pulmonary: Below is from jaquelin note: Contrast-enhanced CT chest personally reviewed from 05/09/2023 revealing trace bilateral effusions, calcified pleural plaques, biapical fibrotic changes and cylindrical bronchiectasis. Patient also with biapical blebs. Patchy irregular areas of consolidation noted in the lingula, right middle lobe and upper lung vuong. No prior chest imaging is available for review. Please obtain any prior CT chest or chest x-ray imaging from outside facility. Differential is broad especially considering his HIV status. CD4 count is low. Infectious etiologies remain high in the differential. Invasive fungal infect ion seems less likely given the unremarkable beta D glucan. Invasive pulmonary aspergillosis can present with nodular infiltrates in immunocompromised patients, but with a low BDG that remains unlikely. CD4 count will also be telling, because if this is unremarkable, then that makes opportunistic infection less likely. QuantiFERON gold was negative which is difficult to interpret given his HIV status. AFB sputum culture x1 was obtained and is pending. It appears that 2 additional Gram stain and sputum cultures were obtained as were AFB cultures on 05/16. Bronchoscopy can be considered to rule out infectious etiology. Other possibilities include cryptogenic organizing pneumonia which would require a lengthy course of systemic corticosteroids. Would defer bronchoscopy at this time until hypotension and severe anemia is improved or resolved. Unsure that the yield from bronchoscopy would be significant and it is negative fungal studies and cultures otherwise. I would like to see prior chest imaging from [facility] to compare for pursuing bronchoscopy. Some of the findings we are seeing on his most recent CT during this admission may be fibrotic changes related to his history of PJP, intubation and pneumothorax. Please obtain records from the outside facility including CT chest imaging. Echo noted with evidence of grade 1 diastolic dysfunction. RVSP 30 to 40 mmHg. No valvulopathy identified. 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 (5) HIV (human immunodeficiency virus infection): Plan: Dx in 2013, treatment with [employer] from [place] On bactrim ds tid; reports he is taking it consistently CD4: 4.03 CD absolute: 8.7 repeat cell count levels 69 sees Rose Mccray at [place] for HIV care Continue Biktarvy (6) LVH (left ventricular hypertrophy): Admission and Anticipated Discharge Date Admission Date: May 09, 2023 Subjective Patient continues to cough, and continues to have loose stools. He reports he does not feel any better since he has been here. He is frustrated that he has not had a GI scope or bronchoscopy here. Review of Systems Review of Systems: All systems reviewed & are unremarkable except as noted in HPI & below Physical Exam Physical Exam: awake and alert, coughing intermittently cough with exam, lungs coarse but clear Results & Data Results & Data Vital Signs (Past 12 Hours) Vital Signs Temp Pulse Pulse Resp BP BP Pulse Ox 05/18/23 19:59 05/18/23 19:28 37.3 C 97 H 20 94/61 L 94 05/18/23 16:43 37.3 C 102 H 18 106/67 98 05/18/23 15:00 97 H 05/18/23 11:59 37.1 C 91 H 18 97/61 L 94 O2 Del Method 05/18/23 19:59 Room Air 05/18/23 19:28 Room Air 05/18/23 16:43 Room Air 05/18/23 15:00 05/18/23 11:59 Room Air PG Care Time/CCT Total # of Minutes Spent Total Time Spent with Patient: Total time spent is greater than 50% in coordination of care (as documented) at patient's floor/unit and/or counseling patient: Coding Level of Care Code 21092 SUB INP/OBS CARE 3/50MIN Diagnoses Cough R05.9 Hypotension I95.[address] scan, chest R93.89 HIV (human immunodeficiency virus infection) B20 LVH (left ventricular hypertrophy) I51.7
[2023-05-18] MEDS: COUGH DROP (SUGAR FREE) LOZ 24 LOZ/1 BOX BUCCAL PRN (23:38)
[2023-05-19] MEDS: CEFEPIME 2,000 MG in SYRINGE 0 ML IV SCH ×3 (01:13→18:02)
[2023-05-19] MEDS: LOPERAMIDE HCL 2 MG CAP PO PRN ×2 (01:13→09:16)
[2023-05-19 07:50] LABS: Hematocrit (blood only) 24.1 % (42.0-52.0); Hemoglobin 7.8 g/dl (14.0-18.0); Mean Corpuscular Hemoglobin 21.6 pg (25.0-34.0); Mean Corpuscular Hgb Conc 32.4 g/dL (32.0-36.0); Mean Corpuscular Volume 66.8 fL (80.0-100.0); Mean Platelet Volume 9.7 fL (9.4-12.4); Platelet Count 265 K/uL (130-400); RDW Coefficient of Variation 21.7 % (11.5-14.5); RDW Standard Deviation 49.7 fL (36.4-46.3); Red Blood Count 3.61 M/uL (4.70-6.10); White Blood Count 15.21 K/ul (4.8-10.8)
[2023-05-19 08:36] LABS: BUN Creatinine Ratio 9.9 (10-20); C Reactive Protein 17.3 mg/dl (0-0.5); Calcium 7.8 mg/dl (8.6-10.3); Creatinine Clr Calc Pharmacy 98.1 ml/min; Est GFR (African American) 107.3 ml/min; Est GFR (Non-African American) 92.6 ml/min; Potassium 3.4 mmol/L (3.5-5.1)
[2023-05-19] MEDS: DICYCLOMINE HCL 10 MG CAP PO PRN ×2 (09:03→23:19)
[2023-05-19] MEDS: SULFAMETHOXAZOLE/TRIMETHOPRIM DS 800/160MG TAB PO SCH (09:03)
[2023-05-19] MEDS: FOLIC ACID 1 MG TAB PO SCH (09:03)
[2023-05-19] MEDS: PANTOprazole 40 MG TAB PO SCH ×2 (09:03→21:06)
[2023-05-19] MEDS: BIKTARVY PO SCH (09:03)
[2023-05-19] MEDS: UMECLIDINIUM BROMIDE 62.5MCG/BLISTER 7 PUFFS/INHALER INH SCH (09:04)
[2023-05-19] MEDS: LOPERAMIDE HCL 2 MG CAP PO SCH (21:05)
[2023-05-19] MEDS: POTASSIUM CHLORIDE CRTAB 20 MEQ TABCR PO SCH (21:05)
--- NOTE | 2023-05-19 21:46 | Magnetic Resonance Report ---
MR MRCP CLINICAL HISTORY: eval cbd stone TECHNIQUE: Multiplanar multisequence MR images of the abdomen were obtained, as per MRCP protocol. . COMPARISON: Comparison is made to HIDA scan 05/16/[address] abdomen pelvis 05/09/2023 FINDINGS: Lower chest: Small bilateral pleural effusions are seen Liver: Unremarkable. No focal lesions are seen. Gallbladder and biliary tree: The gallbladder appears contracted but otherwise unremarkable. Common b ile duct is distended measuring up to 9 mm in diameter. No filling defect is seen. Pancreas: Unremarkable, no focal lesions. Spleen: Unremarkable. Adrenals: Unremarkable. Kidneys and ureters: Unremarkable. Bowel: Unremarkable. Lymph nodes Retroperitoneal: Unremarkable. Mesenteric: Unremarkable. Peritoneum: Normal Vessels: Unremarkable. Abdominal wall: Unremarkable. Bones: Unremarkable. IMPRESSION: 1. There is dilation of the common bile duct without evidence of choledocholithiasis. The gallbladde r is contracted but otherwise appears unremarkable. 2. Small bilateral pleural effusions. ACT 112: Negative or not required by law. Electronically signed by: Karl Gillespie M.D. 05/19/2023 9:43 PM
[2023-05-19] MEDS: PROMETHAZINE HCL 12.5 MG/10 ML UDP PO PRN (23:20)
--- NOTE | 2023-05-19 23:21 | Hospitalist Progress Note ---
Date of Service May 19, 2023 Assessment & Plan (1) Cough: Plan: atypical Pneumonia or pneumonitis cefepime and azithromycin covering gram neg and atypical bacteria Pt remains in the hospital while sputum cultures for TB are collected and processes, finalizing GI workup CXR showed "right lung with apparent pleural thickening" treating for gram negative pneumonia adding azithro for atypials ID consult given immune deficiency did send Quanterferon gold which resulted negative and with immune suppression, pulmonary med also wants 3 sputum AFB samples with diarrhea , stool for Giardia, C Diff negative, stool biofire negative beta glucan is low which is good to not be concerned for pjp or fungus History of collapsed lung and intubation in 2021, previous pleurodesis CTA chest revealed no pulmonary emboli, but identified bronchiectasis with chronic interstitial lung disease pulmonary Biofire negative Sputum culture not significant, Blood culture negative to date MRSA Screen negative; vancomycin discontinued Continue cefepime and azithromycin, , day 5 azithro is 05/16/23 Continue Bactrim hx of PJP PNA; negative pulm recc ECHO, echo results are normal, am cortisol augmented appropriately Off precautions Cefepime was resumed on 05/17/23 will monitor. (refer to ID note for more detail on timing of antibiotics) Hemoglobin dropped below 7 and patient required a transfusion.. Hemoglobin is steady at 05/18, slightly lower on 05/19, if hemoglonin continues to decrease may need scope in house. In regards to his diarrhea, changed immodium from PRN to scheduled, will be getting 8 mg in 24 hours, as patient was receiving 2-6 mg in a 24 hour on a PRN order (2) Hypotension: Plan: Unclear etiology , hypovolemia from diarrhea, pt also anemia and did receive 1 U prbc with evidence of iron deficiency takes iron daily may account for heme positive stools received venofer 05/10,, May require endocrinology consult Sunday as his ACTH stim test was borderline. 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 -Add Dicyclomine 10 mg TID prn. -Obtain HIDA to assess biliary findings on CT. If T bili rises or develops abdominal pain, would consider MRCP for further evaluation as well. -Outpatient EGD & colonoscopy when acute pulmonary issues resolve (would plan to biopsy for CMV) -Celiac panel pending, along with other studies as ordered after hematology evaluation given anemia Awaiting interpretation of MRCP Ordered transfusion of 1 PRBC on 05/17 Hemoglobin is steady on 05/18, slightly lower on 05/19 (4) Abnormal CT scan, chest: Plan: Appreciate input from Pulmonary: Below is from jaquelin note: Contrast-enhanced CT chest personally reviewed from 05/09/2023 revealing trace bilateral effusions, calcified pleural plaques, biapical fibrotic changes and cylindrical bronchiectasis. Patient also with biapical blebs. Patchy irregular areas of consolidation noted in the lingula, right middle lobe and upper lung vuong. No prior chest imaging is available for review. Please obtain any prior CT chest or chest x-ray imaging from outside facility. Differential is broad especially considering his HIV status. CD4 count is low. Infectious etiologies remain high in the differential. Invasive fungal infection seems less likely given the unremarkable beta D glucan. Invasive pulmonary aspergillosis can present with nodular infiltrates in immunocompromised patients, but with a low BDG that remains unlikely. CD4 count will also be telling, because if this is unremarkable, then that makes opportunistic infection less likely. QuantiFERON gold was negative which is difficult to interpret given his HIV status. AFB sputum culture x1 was obtained and is pending. It appears that 2 additional Gram stain and sputum cultures were obtained as were AFB cultures on 05/16. Bronchoscopy can be considered to rule out infectious etiology. Other possibilities include cryptogenic organizing pneumonia which would require a lengthy course of systemic corticosteroids. Would defer bronchoscopy at this time until hypotension and severe anemia is improved or resolved. Unsure that the yield from bronchoscopy would be significant and it is negative fungal studies and cultures otherwise. I would like to see prior chest imaging from [facility] to compare for pursuing bronchoscopy. Some of the findings we are seeing on his most recent CT during this admission may be fibrotic changes related to his history of PJP, intubation and pneumothorax. Please obtain records from the outside facility including CT chest imaging. Echo noted with evidence of grade 1 diastolic dysfunction. RVSP 30 to 40 mmHg. No valvulopathy identified. 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 (5) HIV (human immunodeficiency virus infection): Plan: Dx in 2013, treatment with [facility] [place] On bactrim ds tid; reports he is taking it consistently CD4: 4.03 CD absolute: 8.7 repeat cell count levels 69 sees Rose Mccray at [place] for HIV care Continue Biktarvy (6) LVH (left ventricular hypertrophy): Admission and Anticipated Discharge Date Admission Date: May 09, 2023 Subjective Patient reports having about 5 bowel movements today. Continues to have cough, but is comfortable on room air. Review of Systems Review of Systems: All systems reviewed & are unremarkable except as noted in HPI & below Physical Exam Physical Exam: awake and alert, coughing intermittently cough with exam, lungs coarse but clear Abdomen: benign Results & Data Results & Data Vital Signs (Past 12 Hours) Vital Signs Temp Pulse Resp BP BP Pulse Ox O2 Del Method 05/19/23 23:14 37.4 C 104 H 17 94/52 L 97 Room Air 05/19/23 20:00 Room Air 05/19/23 19:43 37.2 C 100 H 17 97/61 L 94 Room Air 05/19/23 16:41 37.0 C 87 101/66 96 Room Air 05/19/23 11:48 37.1 C 95 H 20 91/58 L 96 Room Air PG Care Time/CCT Total # of Minutes Spent Total Time Spent with Patient: Total time spent is greater than 50% in coordination of care (as documented) at patient's floor/unit and/or counseling patient: Coding Level of Care Code 63488 SUB INP/OBS CARE 3/50MIN Diagnoses Cough R05.9 Hypotension I95.[address] scan, chest R93.89 HIV (human immunodeficiency virus infection) B20 LVH (left ventricular hypertrophy) I51.7
[2023-05-20] MEDS: CEFEPIME 2,000 MG in SYRINGE 0 ML IV SCH ×3 (00:59→16:56)
[2023-05-20 06:24] LABS: Hematocrit (blood only) 24.1 % (42.0-52.0); Hemoglobin 7.7 g/dl (14.0-18.0); Mean Corpuscular Hemoglobin 21.4 pg (25.0-34.0); Mean Corpuscular Volume 66.9 fL (80.0-100.0); Mean Platelet Volume 9.3 fL (9.4-12.4); Platelet Count 260 K/uL (130-400); RDW Standard Deviation 51.2 fL (36.4-46.3); White Blood Count 15.77 K/ul (4.8-10.8)
[2023-05-20 06:27] LABS: BUN Creatinine Ratio 11.6 (10-20); C Reactive Protein 17.47 mg/dl (0-0.5); Calcium 7.7 mg/dl (8.6-10.3); Creatinine Clr Calc Pharmacy 109.8 ml/min; Est GFR (African American) 125.7 ml/min; Est GFR (Non-African American) 108.5 ml/min; Potassium 3.8 mmol/L (3.5-5.1)
--- NOTE | 2023-05-20 08:34 | Hospitalist Progress Note ---
Date of Service May 20, 2023 Assessment & Plan (1) Anemia: Plan: Hemoglobin electrophoresis shows no signs of hemoglobin S or any clear indication of thalassemia. This does not completely rule out an alpha thalassemia but our working diagnosis is more focused on iron deficiency and inflammatory suppression of erythropoiesis at this time. Although the history suggest that his mother would be an obligate hemoglobin S carrier he is not Would proceed with further iron supplementation as indicated in my previous progress note, in addition to the initial dose of Venofer received would give 3 additional 200 mg doses on an every other day schedule. Folic acid has improved only to the low end of normal range, could consider doubling his current folic acid supplementation if there is some suspicion of malabsorptive changes in the gut Transfusion as needed. Note that as a younger and relatively fit patient who probably has had long-term anemia, he might tolerate hemoglobin levels even between the 6 and 7 g/dL range without dramatic risk or symptomatology and thus when his hemoglobin levels are slightly below 7, could observe for a time before proceeding to additional PRBC transfusion. Await ongoing GI review for any indications of correctable malabsorption and/or GI sources of blood Plan Iron infusion, continued close observation Admission and Anticipated Discharge Date Admission Date: May 09, 2023 Subjective Status quo Results & Data Results & Data Vital Signs (Past 12 Hours) Vital Signs Temp Pulse Resp BP Pulse Ox O2 Del Method 05/20/23 07:48 37.1 C 94 H 18 97/65 L 95 Room Air 05/20/23 03:04 37.7 C H 100 H 18 97/55 L 92 Room Air 05/19/23 23:14 37.4 C 104 H 17 94/52 L 97 Room Air PG Care Time/CCT Total # of Minutes Spent Total Time Spent with Patient: Total time spent is greater than 50% in coordination of care (as documented) at patient's floor/unit and/or counseling patient: Coding Level of Care Code None Diagnoses Anemia D64.9
[2023-05-20] MEDS: DICYCLOMINE HCL 10 MG CAP PO PRN (08:46)
[2023-05-20] MEDS: PANTOprazole 40 MG TAB PO SCH ×2 (08:46→20:55)
[2023-05-20] MEDS: BIKTARVY PO SCH (08:47)
[2023-05-20] MEDS: FOLIC ACID 1 MG TAB PO SCH (08:47)
[2023-05-20] MEDS: SULFAMETHOXAZOLE/TRIMETHOPRIM DS 800/160MG TAB PO SCH (08:47)
[2023-05-20] MEDS: POTASSIUM CHLORIDE CRTAB 20 MEQ TABCR PO SCH ×2 (08:47→13:21)
[2023-05-20] MEDS: LOPERAMIDE HCL 2 MG CAP PO SCH ×4 (08:47→20:54)
[2023-05-20] MEDS: UMECLIDINIUM BROMIDE 62.5MCG/BLISTER 7 PUFFS/INHALER INH SCH (08:47)
[2023-05-20] MEDS ORDERED: FOLIC ACID 1 MG in SYRINGE 9.8 ML IV ONE (09:30)
[2023-05-20] MEDS ORDERED: IRON SUCROSE 200 MG in 0.9 % SODIUM CHLORIDE 100 ML IV ONE (10:00)
[2023-05-20] MEDS ORDERED: COUGH DROP (SUGAR FREE) LOZ 24 LOZ/1 BOX BUCCAL STA (10:44)
--- NOTE | 2023-05-20 14:59 | Hospitalist Progress Note ---
Date of Service May 20, 2023 Assessment & Plan (1) Cough: Plan: atypical Pneumonia or pneumonitis from TB or fungal cause. Opportunistic infections included given HIV AFB smears negative, AFB cultures of the sputum and blood are pending Add cryptococcal antigen and histoplasmosis antigen as per ID recommendations PJP essentially ruled out with negative Fungitell Respiratory bio fire negative Quantferon gold negative but could be false negative in the setting of low CD4 count Sputum cultures-no growth to date CXR showed "right lung with apparent pleural thickening" History of collapsed lung and intubation in 2021, previous pleurodesis CTA chest revealed no pulmonary emboli, but identified bronchiectasis with chronic interstitial lung disease MRSA Screen negative; vancomycin discontinued Continue cefepime x7-day course, completed 5-day course of azithromycin Appreciate ID and pulmonary recommendations-pulmonary has signed off- Bronchoscopy can be considered to rule out infectious etiology. Other possibilities include cryptogenic organizing pneumonia which would require a lengthy course of systemic corticosteroids."Would defer bronchoscopy at this time until hypotension and severe anemia is improved or resolved. Unsure that the yield from bronchoscopy would be significant and it is negative fungal studies and cultures otherwise. I would like to see prior chest imaging from [facility] to compare for pursuing bronchoscopy. Some of the findings we are seeing on his most recent CT during this admission may be fibrotic changes related to his history of PJP, intubation and pneumothorax. Please obtain records from the outside facility including CT chest imaging. Echo noted with evidence of grade 1 diastolic dysfunction. RVSP 30 to 40 mmHg. No valvulopathy identified. 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 Patient reports he chronically has lower blood pressures when he is laying down at rest but they improve when he sits up. His severe anemia is also likely contributing. His ACTH stim test was essentially normal and his a.m. cortisol level was normal-he does not have adrenal insufficiency (3) Anemia: Plan: microcytic anemia, acute on chronic iron deficiency anemia,he reports being told he was anemic even a year ago and thinks it is related to his HIV medication Clinically, patient denies melena and blood in stool/urine, No signs of active bleeding Fecal occult stool positive but could be from iron pills Folate low at 4.3-was given IV folate and improved to 5-continue IV folate as he is not absorbing much with gut wall edema Continue Protonix 40 mg p.o. bid in case of GI bleeding-GI defers EGD and col onoscopy at this time due to anemia and hypotension both of which are stable B12 is normal, iron deficiency is severe with-replacing with IV Venofer Haptoglobin is high, hemoglobin electrophoresis is normal but does not rule out alpha thalassemia Appreciate hematology consultation Received approximately 1 g of IV Venofer and 1 unit PRBCs earlier in this hospitalization-we will give another 600 mg of IV Venofer over the next 6 days as per hematology GI recommends EGD and colonoscopy when patient is more stable-this could be in the near future- He would need biopsies for CMV Follow CBC-hemoglobin stable at 7.7 with ongoing likely reactive leukocytosis (4) HIV (human immunodeficiency virus infection): Plan: Dx in 2013, treatment with [facility] [place] ID Rose Mccray at [place] for HIV care On bactrim ds once daily for prophylaxis CD4 count 69 Continue Biktarvy ID consult here appreciated (5) Diarrhea: Plan: Ongoing for over a month with weight loss Could be related to HIV Giardia negative, stool PCR negative to include Cryptosporidium HIDA scan negative, MRCP with dilated CBD but no choledocholithiasis. LFTs normal Needs colonoscopy but GI deferring for now until acute pulmonary issues resolve Celiac panel negative Plan Disposition-continued stay but eventually back to long term Admission and Anticipated Discharge Date Admission Date: May 09, 2023 Subjective Patient reports ongoing cough productive of sputum, no hemoptysis. Ongoing diarrhea every time after he eats. He has lost 20 to 25 pounds of weight in the last few months but does think it is related to not eating as much. The diarrhea has been ongoing for 1 month. He reports he has been taking his antiretrovirals for the last year but did stop taking them for a year prior to that. He is making urine but it is dark in color. Telemetry with normal sinus rhythm and sinus tachycardia with rates in the 90s to 100s. Physical Exam Constitutional: WD/WN, vitals as above Eyes: + anicteric sclerae Respiratory: normal respiratory effort and + cough Auscultation: + crackles (right middle lung field); no rhonchi and no wheezes Cardiovascular: RRR, no murmur, no edema Gastrointestinal (Abdomen): normal bowel sounds, soft, nontender, no hepatosplenomegaly Psychiatric: A+Ox3, euthymic affect Results & Data Results & Data Vital Signs (Past 12 Hours) Vital Signs Temp Pulse Pulse Resp BP Pulse Ox O2 Del Method 05/20/23 11:41 37.0 C 85 18 96/91 L 95 Room Air 05/20/23 09:00 73 05/20/23 09:00 Room Air 05/20/23 07:48 37.1 C 94 H 18 97/65 L 95 Room Air 05/20/23 03:04 37.7 C H 100 H 18 97/55 L 92 Room Air Laboratory Results CBC, BMP, procalcitonin, CRP reviewed Blood cultures reviewed Sputum cultures reviewed AFB smears negative, cultures pending PG Care Time/CCT Total # of Minutes Spent Total Time Spent with Patient: Total time spent is greater than 50% in coordination of care (as documented) at patient's floor/unit and/or counseling patient: Coding Level of Care Code 28291 SUB INP/OBS CARE 3/50MIN Diagnoses Cough R05.9 Hypotension I95.9 Anemia D64.9 HIV (human immunodeficiency virus infection) B20 Diarrhea R19.7
[2023-05-21] MEDS: CEFEPIME 2,000 MG in SYRINGE 0 ML IV SCH ×3 (01:15→17:40)
[2023-05-21 06:40] LABS: Basophils # (auto) 0.05 K/uL (0.00-0.20); Basophils % (auto) 0.3 %; Eosinophils # (auto) 0.71 K/uL (0.00-0.50); Eosinophils % (auto) 4.6 %; Hematocrit (blood only) 24.5 % (42.0-52.0); Hemoglobin 7.8 g/dl (14.0-18.0); Immature Granulocytes # (auto) 0.11 K/uL (0.01-0.20); Immature Granulocytes % (auto) 0.7 %; Lymphocytes # (auto) 1.58 K/uL (1.20-3.40); Lymphocytes % (auto) 10.3 %; Mean Corpuscular Hemoglobin 21.4 pg (25.0-34.0); Mean Corpuscular Hgb Conc 31.8 g/dL (32.0-36.0); Mean Corpuscular Volume 67.3 fL (80.0-100.0); Monocytes # (auto) 0.68 K/uL (0.11-0.59); Monocytes % (auto) 4.4 %; Neutrophils # (auto) 12.16 K/uL (1.40-6.50); Neutrophils % (auto) 79.7 %; RDW Coefficient of Variation 22.2 % (11.5-14.5); RDW Standard Deviation 53.1 fL (36.4-46.3); Red Blood Count 3.64 M/uL (4.70-6.10); White Blood Count 15.29 K/ul (4.8-10.8)
[2023-05-21 06:46] LABS: Albumin Globulin Ratio 0.5 (0.9-2); Albumin Level 2.2 gm/dl (3.4-5.0); BUN Creatinine Ratio 12.8 (10-20); Bilirubin,Total 0.3 mg/dl (0.2-1.0); Calcium 7.8 mg/dl (8.6-10.3); Creatinine Clr Calc Pharmacy 109.8 ml/min; Est GFR (African American) 125.7 ml/min; Est GFR (Non-African American) 108.5 ml/min; Globulin 4.2 gm/dl (2.5-4.0); Magnesium 1.7 mg/dl (1.7-2.4); Potassium 3.8 mmol/L (3.5-5.1); Total Protein 6.4 gm/dl (6.0-8.3)
[2023-05-21 06:48] LABS: Platelet Count 276 K/uL (130-400)
[2023-05-21 07:14] LABS: Anisocytosis Present; Echinocytes 1+; Ovalocytes 1+; Polychromasia 2+; Spherocytes 1+
[2023-05-21] MEDS ORDERED: MAGNESIUM SULFATE / D5W 1 GM/100 ML BAG IV ONE (08:03)
[2023-05-21] MEDS: FOLIC ACID 1 MG in SYRINGE 9.8 ML IV SCH (09:22)
[2023-05-21] MEDS: BIKTARVY PO SCH (09:22)
[2023-05-21] MEDS: UMECLIDINIUM BROMIDE 62.5MCG/BLISTER 7 PUFFS/INHALER INH SCH (09:23)
[2023-05-21] MEDS: PANTOprazole 40 MG TAB PO SCH ×2 (09:23→20:42)
[2023-05-21] MEDS: LOPERAMIDE HCL 2 MG CAP PO SCH ×4 (09:23→20:42)
[2023-05-21] MEDS: SULFAMETHOXAZOLE/TRIMETHOPRIM DS 800/160MG TAB PO SCH (09:23)
[2023-05-21] MEDS: DICYCLOMINE HCL 10 MG CAP PO PRN (13:02)
--- NOTE | 2023-05-21 16:55 | Hospitalist Progress Note ---
Date of Service May 21, 2023 Assessment & Plan (1) Cough: Plan: atypical Pneumonia or pneumonitis from TB or fungal cause. Opportunistic infections included given HIV AFB smears negative, AFB cultures of the sputum and blood are pending cryptococcal antigen and histoplasmosis antigen, disseminated MAC is a concern given constellation of symptoms as per ID recommendations PJP essentially ruled out with negative Fungitell Respiratory bio fire negative Quantferon gold negative but could be false negative in the setting of low CD4 count Sputum cultures-no growth to date CXR showed "right lung with apparent pleural thickening" History of collapsed lung and intubation in 2021, previous pleurodesis CTA chest revealed no pulmonary emboli, but identified bronchiectasis with chronic interstitial lung disease MRSA Screen negative; vancomycin discontinued Continue cefepime x7-day course through 05/22, completed 5-day course of azithromycin Appreciate ID and pulmonary recommendations-pulmonary has signed off- Bronchoscopy can be considered to rule out infectious etiology. Other possibilities include cryptogenic organizing pneumonia which would require a lengthy course of systemic corticosteroids."Would defer bronchoscopy at this time until hypotension and severe anemia is improved or resolved. Unsure that the yield from bronchoscopy would be significant and it is negative fungal studies and cultures otherwise. I would like to see prior chest imaging from [facility] to compare for pursuing bronchoscopy. Some of the findings we are seeing on his most recent CT during this admission may be fibrotic changes related to his history of PJP, intubation and pneumothorax. Paper copies of CXRs and CHest CT from multiple months long stay at [facility] in 2021 obtained but need images on disc -await final AFB smears -stable from PULM standpoint for discharge (2) Hypotension: Plan: Could be hypovolemia from diarrhea. Patient reports he chronically has lower blood pressures when he is laying down at rest but they improve when he sits up. His severe anemia is also likely contributing. His ACTH stim test was essentially normal and his a.m. cortisol level was normal-he does not have adrenal insufficiency Asymptomatic (3) Anemia: Plan: microcytic anemia, acute on chronic iron deficiency anemia,he reports being told he was anemic even a year ago and thinks it is related to his HIV medication Clinically, patient denies melena and blood in stool/urine, No signs of active bleeding Fecal occult stool positive but could be from iron pills Folate low at 4.3-was given IV folate and improved to 5-continue IV folate as he is not absorbing much with gut wall edema Continue Protonix 40 mg p.o. bid in case of GI bleeding-GI defers EGD and colonoscopy at this time due to Pulmonary issues B12 is normal, iron deficiency is severe with-replacing with IV Venofer Haptoglobin is high, hemoglobin electrophoresis is normal but does not rule out alpha thalassemia Appreciate hematology consultation Received approximately 1 g of IV Venofer and 1 unit PRBCs earlier in this ho spitalization-continue to give 600 mg of IV Venofer over 6 days as per hematology GI recommends EGD and colonoscopy when patient is more stable-this could be in the near future- He would need biopsies for CMV Follow CBC-hemoglobin stable at 7.8 with ongoing likely reactive leukocytosis (4) HIV (human immunodeficiency virus infection): Plan: Dx in 2013, treatment with [facility] at [place] ID Rose Mccray at [place] for HIV care On bactrim ds once daily for prophylaxis CD4 count 69 Continue Biktarvy ID consult here appreciated (5) Diarrhea: Plan: Ongoing for over a month with weight loss Could be related to HIV, CMV Giardia negative, stool PCR negative to include Cryptosporidium HIDA scan negative, MRCP with dilated CBD but no choledocholithiasis. LFTs normal Needs colonoscopy but GI deferring for now until acute pulmonary issues resolve Celiac panel negative ID thinks could be disseminated MAC--> awaiting AFB sputum cxs and blood cxs Check CMV titers, stool O&P Plan Disposition-continued stay but eventually back to [facility] in 2[facility]3 days Admission and Anticipated Discharge Date Admission Date: May 09, 2023 Subjective Still with cough and diarrhea. Diarrhea has slowed down to 4 times a day instead of 7-8 previously. No blood in sputum or stool. Tele with no arrhythmias Physical Exam Constitutional: WD/WN, vitals as above Eyes: + anicteric sclerae Respiratory: normal respiratory effort and + cough Auscultation: + crackles (right middle lung field); no rhonchi and no wheezes Cardiovascular: RRR, no murmur, no edema Gastrointestinal (Abdomen): normal bowel sounds, soft, nontender, no hepatosplenomegaly Psychiatric: A+Ox3, euthymic affect Results & Data Results & Data Vital Signs (Past 12 Hours) Vital Signs Temp Pulse Pulse Resp BP BP Pulse Ox 05/21/23 16:18 90 05/21/23 15:11 37.0 C 90 17 91/52 L 94 05/21/23 12:08 36.8 C 83 18 92/60 L 94 05/21/23 10:07 05/21/23 08:13 36.8 C 96 H 17 105/58 L 96 05/21/23 07:17 89 O2 Del Method 05/21/23 16:18 05/21/23 15:11 Room Air 05/21/23 12:08 Room Air 05/21/23 10:07 Room Air 05/21/23 08:13 Room Air 05/21/23 07:17 Laboratory Results CBC, CMP, magnesium reviewed PG Care Time/CCT Total # of Minutes Spent Total Time Spent with Patient: Total time spent is greater than 50% in coordination of care (as documented) at patient's floor/unit and/or counseling patient: Coding Level of Care Code 02235 SUB INP/OBS CARE 3/50MIN Diagnoses Cough R05.9 Hypotension I95.9 Anemia D64.9 HIV (human immunodeficiency virus infection) B20 Diarrhea R19.7
[2023-05-21] MEDS: guaiFENesin/DEXTROM SYRUP 200MG/20MG 10ML UDC PO SCH (17:40)
--- NOTE | 2023-05-21 18:00 | Infectious Disease Progress Nt ---
Date of Service May 21, 2023 Assessment & Plan (1) Diarrhea: (2) HIV (human immunodeficiency virus infection): (3) Hypotension: (4) Cough: Plan Micro: 05/21 Serum CrAg: pending 05/17 AFB blood culture: pending 05/16 Sputum AFB smear neg, cx pending 05/16 Sputum AFB smear neg, cx pending 05/15 Sputum AFB smear neg, cx pending 05/15 Sputum cx: heavy normal rosa 05/15 Sputum cx: heavy normal rosa 05/15 Sputum AFB smear neg, cx pending 05/12 Stool Giardia Ag: neg 05/11 Quant gold: neg 05/10 Sputum cx: mod normal rosa 05/10 Sputum PJP PCR: neg 05/10 C diff neg 05/10 Stool PCR panel: neg 05/09 BDG < 31 05/09 RVP neg 05/09 BCx x2: NG Abx: Cefepime 05/09-05/11, 05/16 - present Azithro 05/11 - 05/16 Vanc 05/09 HIV meds: Biktarvy TMP/SMX 1 DS tab daily Problems: #HIV/AIDS: CD4 69, VL UD. Reportedly adherent to Biktarvy, Bactrim ppx #Pneumonia, consolidation and GGO: #Hypotension #weight loss #Fever: on 05/17 #Anemia #Currently Incarcerated # Persistent Leukocytosis # History of PJP 42 yo incarcerated M with HIV (CD4 69/5%, VL UD in 04/2023, on Bactrim ppx), vitamin D deficiency, FREDIS, PJP pneumonia who presented on 05/09 due to worsening cough, hypotension to 80s/50s. He reported diarrhea multiple times a night in the last week, dry cough ongoing x 1.5 months but worsening, mild SOB on exertion over the past few weeks. Denied fevers, chills, sweating, hemoptysis. Reported unintentional weight loss (166 --> 146 lbs over 3.5 months). On presentation, pt was afebrile, BP 90/61, SpO2 100% on room air. Labs showed WBC 11.88, Hb 7.3, procalcitonin 1, lactate 1.1. UA negative. MRSA nares negative. RVP negative. LDH 146. CTA chest showed no PE, bronchiectasis with chronic interstitial lung disease and biapical blebs and bulla formation, patchy and irr egular areas of consolidation most pronounced within the right middle lobe and lingula with upper lung zone predominant groundglass densities may also be related to the chronic lung disease however superimposed infectious or inflammatory pneumonitis could appear similarly. CT A/P with IV contrast showed nonspecific wall thickening of multiple jejunal loops, may be related to underdistention or other etiologies such as hypoalbuminemia, nonspecific enteritis given mesenteric stranding could appear similarly, a few mildly enlarged mesenteric lymph nodes, likely benign. Patient was started on empiric cefepime and azithromycin for possible bacterial pneumonia. He spiked a fever to 38.1 on 05/17. Remains with leukocytosis to 15-16. Continues with soft BPs. For his pulmonary findings, pt underwent TB evaluation, with 3 negative sputum AFB smears, quantiferon gold negative. Will await AFB cultures. BDG is negative, and sputum PJP PCR is negative. Therefore, PJP pneumonia seems unlikely, wes ecially as patient has reportedly been adherent to prophylactic Bactrim. RVP negative. Sputum culture growing normal rosa. Could consider pulmonary MAC infection given low CD4 count. Also consider Crypto, Histo. Pulm was consulted--recommended deferring bronchoscopy at this time until hypotension and severe anemia resolved/improved, wanted to review outside imaging as his CT findings could be fibrotic changes related to history of PJP, intubation, and pneumothorax. Pulm signed off. For his diarrhea, C diff, stool PCR panel, and stool Giardia Ag are negative. Would consider disseminated MAC as a cause of diarrhea. Also consider other infectious etiologies such as microsporidium, cryptosporidium, isospora, CMV. Consider lymphoma, Kaposi's sarcoma. His hypotension may be reflective of failure to thrive, adrenal insufficiency, fungal infections, MTB or disseminated ROSA/MAC potentially. Need to rule out opportunistic infections. Most concerned for disseminated MAC at this time, which could explain pulmonary symptoms, diarrhea, weight loss, anemia. CT did show mild hepatosplenomegaly, apparent wall thickening of multiple jejunal loops, several mildly enlarged mesenteric lymph nodes--seems nonspecific, but could be seen in disseminated MAC. Review of a scanned note from 01/22/23 indicates a prior history of disseminated MAC in 11/2021, and history of CMV infection. It appears he follows with LINUS Weaver at [facility] for his HIV care. Recommendations: -Ordered stool O&P -Ordered serum CMV PCR, galactomannan -Follow-up urine histoplasma Ag, serum Cryptococcal Ag, mycobacterial blood culture -Continue cefepime to complete a 7 day course of therapy through 05/22 -Continue Biktarvy daily -Continue Bactrim prophylaxis as active PJP is less likely as per above -Agree with discontinuation of airborne precautions as pt has 3 negative sputum AFB smears -Can follow-up final sputum AFB cultures as outpatient as these will likely take some time to return -I will reach out to his HIV provider tomorrow to discuss his case further and obtain more history. Discussed with hospitalist. Will continue to follow. Please page [facility] Call Center with further questions. Admission and Anticipated Discharge Date Admission Date: May 09, 2023 Subjective This patient recommendation is based on a telemedicine consult request which was completed asynchronously through chart review and information provided by the primary physician. The patient was not seen or examined today. The evaluation is consultative in nature and all patient care and treatment decisions can either be accepted or rejected by the patient's primary hospital-based treating physician using their own independent medical judgment for their patient. Time Spent Reviewing Chart: 31+ minutes Patient not seen Some improvement in diarrhea with Imodium Review of System Patient not seen Physical Exam Physical Exam: Patient not seen Results & Data Vital Signs (Past 12 Hours) Vital Signs Temp Pulse Pulse Resp BP BP Pulse Ox 05/21/23 16:18 90 05/21/23 15:11 37.0 C 90 17 91/52 L 94 05/21/23 12:08 36.8 C 83 18 92/60 L 94 05/21/23 10:07 05/21/23 08:13 36.8 C 96 H 17 105/58 L 96 05/21/23 07:17 89 O2 Del Method 05/21/23 16:18 05/21/23 15:11 Room Air 05/21/23 12:08 Room Air 05/21/23 10:07 Room Air 05/21/23 08:13 Room Air 05/21/23 07:17 Laboratory Results Short CBC 05/21/23 Range/Units 06:03 WBC 15.29 H (4.8-10.8) K/ul Hgb 7.8 L (14.0-18.0) g/dl Hct 24.5 L (42.0-52.0) % Plt Count 276 (130-400) K/uL BMP 05/21/23 06:03 Sodium 134 L Potassium 3.8 Chloride 107 Carbon Dioxide 23 BUN 11 Creatinine 0.86 Glucose 88 Calcium 7.8 L Liver Function 05/21/23 Range/Units 06:03 Total Bilirubin 0.3 (0.2-1.0) mg/dl AST 7 L (13-39) U/L ALT 5 L (7-52) U/L Alkaline Phosphatase 85 (34-104) U/L Albumin 2.2 L (3.4-5.0) gm/dl Diagnostic Findings Cholangiopancreatography MRI 05/19/23 12:16 MR MRCP CLINICAL HISTORY: eval cbd stone TECHNIQUE: Multiplanar multisequence MR images of the abdomen were obtained, as per MRCP protocol. . COMPARISON: Comparison is made to HIDA scan 05/16/[address] abdomen pelvis 05/09/2023 FINDINGS: Lower chest: Small bilateral pleural effusions are seen Liver: Unremarkable. No focal lesions are seen. Gallbladder and biliary tree: The gallbladder appears contracted but otherwise unremarkable. Common bile duct is distended measuring up to 9 mm in diameter. No filling defect is seen. Pancreas: Unremarkable, no focal lesions. Spleen: Unremarkable. Adrenals: Unremarkable. Kidneys and ureters: Unremarkable. Bowel: Unremarkable. Lymph nodes Retroperitoneal: Unremarkable. Mesenteric: Unremarkable. Peritoneum: Normal Vessels: Unremarkable. Abdominal wall: Unremarkable. Bones: Unremarkable. IMPRESSION: 1. There is dilation of the common bile duct without evidence of choledocholithiasis. The gallbladder is contracted but otherwise appears unremarkable. 2. Small bilateral pleural effusions. ACT 112: Negative or not required by law. Electronically signed by: Karl Gillespie M.D. 05/19/2023 9:43 PM Medications Administered Current Inpatient Medications Acetaminophen (Acetaminophen 325 Mg Tab) 650 mg PO Q4H PRN PRN Reason: pain (1-4) /fever Stop: 06/08/23 15:32 Last Admin: 05/17/23 03:25 Dose: 650 mg Bictegravir/Emtricitabine/Tenofovir (Biktarvy) 1 each PO DAILY JANES; Protocol Stop: 06/09/23 08:59 Last Admin: 05/21/23 09:22 Dose: 1 each Cholestyramine Resin (Cholestyramine Light 4 Gm Pkt) 4 gm PO BID@1000,2200 [facility] Stop: 06/20/23 17:34 Dicyclomine HCl (Dicyclomine Hcl 10 Mg Cap) 10 mg PO TID PRN PRN Reason: Diarrhea Stop: 06/15/23 09:40 Last Admin: 05/21/23 13:02 Dose: 10 mg Guaifenesin/Dextromethorphan (Guaifenesin/Dextrom Syrup 200mg/20mg 10ml Udc) 10 ml PO Q6H [facility] Stop: 06/20/23 17:59 Last Admin: 05/21/23 17:40 Dose: 10 ml Cefepime HCl 2,000 mg/ Syringe 20 mls @ 5 mls/min IV Q8H [facility]; Protocol Stop: 05/23/23 16:59 Last Admin: 05/21/23 17:40 Dose: 5 mls/min Folic Acid 1 mg/ Syringe 10 mls @ 5 mls/min IV DAILY@0900 [facility] Stop: 06/20/23 08:59 Last Admin: 05/21/23 09:22 Dose: 5 mls/min Iron Sucrose 200 mg/ Sodium (Chloride) 110 mls @ 220 mls/hr IV Q2D [facility] Stop: 05/24/23 08:29 Loperamide HCl (Loperamide Hcl 2 Mg Cap) 2 mg PO QID [facility] Stop: 06/18/23 20:59 Last Admin: 05/21/23 17:40 Dose: 2 mg Menthol (Cough Drop (Sugar Free) Tunde 24 Tunde/1 Box) 1 tunde BUCCAL UD PRN PRN Reason: Sore Throat Stop: 06/09/23 10:20 Last Admin: 05/18/23 23:38 Dose: 1 tunde Pantoprazole Sodium (Pantoprazole 40 Mg Tab) 40 mg PO BID [facility] Stop: 06/17/23 20:59 Last Admin: 05/21/23 09:23 Dose: 40 mg Promethazine HCl (Promethazine Hcl 12.5 Mg/10 Ml Udp) 12.5 mg PO Q6H PRN PRN Reason: Cough Stop: 06/10/23 13:03 Last Admin: 05/19/23 23:20 Dose: 12.5 mg Trimethoprim/Sulfamethoxazole (Sulfamethoxazole/Trimethoprim Ds 800/160mg Tab) 1 tab PO DAILY [facility] Stop: 06/17/23 08:59 Last Admin: 05/21/23 09:23 Dose: 1 tab Umeclidinium [place] (Umeclidinium [place] 62.5mcg/Blister 7 Puffs/Inhaler) 1 puffs INH DAILY [facility] Stop: 06/14/23 16:14 Last Admin: 05/21/23 09:23 Dose: 1 puffs
[2023-05-21] MEDS: CHOLESTYRAMINE LIGHT 4 GM PKT PO SCH (19:11)
[2023-05-22] MEDS: guaiFENesin/DEXTROM SYRUP 200MG/20MG 10ML UDC PO SCH ×5 (00:36→23:08)
[2023-05-22] MEDS: CEFEPIME 2,000 MG in SYRINGE 0 ML IV SCH ×3 (00:36→16:54)
[2023-05-22 06:42] LABS: Basophils # (auto) 0.06 K/uL (0.00-0.20); Basophils % (auto) 0.4 %; Eosinophils # (auto) 0.84 K/uL (0.00-0.50); Eosinophils % (auto) 5.4 %; Hematocrit (blood only) 24.3 % (42.0-52.0); Hemoglobin 7.8 g/dl (14.0-18.0); Immature Granulocytes # (auto) 0.17 K/uL (0.01-0.20); Immature Granulocytes % (auto) 1.1 %; Lymphocytes # (auto) 1.58 K/uL (1.20-3.40); Lymphocytes % (auto) 10.2 %; Mean Corpuscular Hemoglobin 21.5 pg (25.0-34.0); Mean Corpuscular Hgb Conc 32.1 g/dL (32.0-36.0); Mean Corpuscular Volume 66.9 fL (80.0-100.0); Monocytes # (auto) 0.78 K/uL (0.11-0.59); Neutrophils # (auto) 12.07 K/uL (1.40-6.50); Neutrophils % (auto) 77.9 %; RDW Coefficient of Variation 22.9 % (11.5-14.5); Red Blood Count 3.63 M/uL (4.70-6.10)
[2023-05-22 07:06] LABS: Echinocytes 2+; Mean Platelet Volume 9.7 fL (9.4-12.4); Ovalocytes 1+; Platelet Count 286 K/uL (130-400); Polychromasia 1+
[2023-05-22 07:12] LABS: BUN Creatinine Ratio 12.2 (10-20); Calcium 7.8 mg/dl (8.6-10.3); Creatinine Clr Calc Pharmacy 96.4 ml/min; Est GFR (African American) 111.3 ml/min; Est GFR (Non-African American) 96.1 ml/min; Magnesium 1.8 mg/dl (1.7-2.4); Potassium 3.7 mmol/L (3.5-5.1)
[2023-05-22] MEDS: IRON SUCROSE 200 MG in 0.9 % SODIUM CHLORIDE 100 ML IV SCH (08:12)
[2023-05-22] MEDS: BIKTARVY PO SCH (08:12)
[2023-05-22] MEDS: SULFAMETHOXAZOLE/TRIMETHOPRIM DS 800/160MG TAB PO SCH (08:13)
[2023-05-22] MEDS: PANTOprazole 40 MG TAB PO SCH ×2 (08:13→20:00)
[2023-05-22] MEDS: LOPERAMIDE HCL 2 MG CAP PO SCH ×4 (08:13→20:00)
[2023-05-22] MEDS: FOLIC ACID 1 MG in SYRINGE 9.8 ML IV SCH (08:13)
[2023-05-22] MEDS: UMECLIDINIUM BROMIDE 62.5MCG/BLISTER 7 PUFFS/INHALER INH SCH (08:13)
--- NOTE | 2023-05-22 08:40 | Infectious Disease Progress Nt ---
Date of Service May 22, 2023 Assessment & Plan (1) Diarrhea: (2) HIV (human immunodeficiency virus infection): (3) Hypotension: (4) Cough: Plan Micro: 05/21 Urine histo Ag 05/21 Serum Aspergillus Ag: pending 05/21 Serum CMV PCR: pending 05/21 Stool O&P: pending 05/21 Serum CrAg: pending 05/17 AFB blood culture: pending 05/16 Sputum AFB smear neg, cx NGTD 05/16 Sputum AFB smear neg, cx +AFB, pending ID 05/15 Sputum AFB smear neg, cx +AFB, pending ID 05/15 Sputum cx: heavy normal rosa 05/15 Sputum cx: heavy normal rosa 05/15 Sputum AFB smear neg, cx pending 05/12 Stool Giardia Ag: neg 05/11 Quant gold: neg 05/10 Sputum cx: mod normal rosa 05/10 Sputum PJP PCR: neg 05/10 C diff neg 05/10 Stool PCR panel: neg 05/09 BDG < 31 05/09 RVP neg 05/09 BCx x2: NG Abx: Cefepime 05/09-05/11, 05/16 - 05/22 Azithro 05/11 - 05/16 Vanc 05/09 HIV meds: Biktarvy TMP/SMX 1 DS tab daily Problems: #HIV/AIDS: CD4 69, VL UD. Reportedly adherent to Biktarvy, Bactrim ppx #Pneumonia, consolidation and GGO #Hypotension #weight loss #Fever: on 05/17 #Anemia #Currently Incarcerated #Persistent Leukocytosis #History of PJP #History of MAC 42 yo incarcerated M with HIV (CD4 69/5%, VL UD in 04/2023, adherent to Biktarvy and Bactrim ppx), vitamin D deficiency, FREDIS, PJP pneumonia (2019), prior diagnosis of MAC who presented on 05/09 due to hypotension to 80s/50s, worsening cough, diarrhea, admitted with c/f disseminated MAC. Pt has had watery non- bloody diarrhea x 3-4 weeks, dry cough ongoing x 1.5 months but worsening, mild SOB on exertion over the past few weeks. Denied fevers, chills, night sweats, hemoptysis. Reported unintentional weight loss (166 --> 146 lbs over 3.5 months). On presentation, pt was afebrile, BP 90/61, SpO2 100% on room air. Labs showed WBC 11.88, Hb 7.3, procalcitonin 1, lactate 1.1. UA negative. MRSA nares negative. RVP negative. LDH 146. CTA chest showed no PE, bronchiectasis with chronic interstitial lung disease and biapical blebs and bulla formation, patchy and irregular areas of consolidation most pronounced within the right middle lobe and lingula with upper lung zone predominant groundglass densities may also be related to the chronic lung disease however superimposed infectious or inflammatory pneumonitis could appear similarly. CT A/P with IV contrast showed nonspecific wall thickening of multiple jejunal loops, may be related to underdistention or other etiologies such as hypoalbuminemia, nonspecific enteritis given mesenteric stranding could appear similarly, a few mildly e nlarged mesenteric lymph nodes, likely benign. Patient was started on empiric cefepime and azithromycin for possible bacterial pneumonia. He spiked a fever to 38.1 on 05/17. Remains with leukocytosis to 15-16. Continues with soft BPs. For his pulmonary findings, pt underwent TB evaluation, with 3 negative sputum AFB smears, quantiferon gold negative. AFB cultures currently growing AFB, awaiting identification. Most likely indicative of MAC, given pt report of history of MAC in the last year for which he did not complete treatment, and stopped ethambutol prematurely due to some L eye vision changes. Could also consider TB, given history of incarceration, but no history of travel outside the country, hemoptysis, night sweats. BDG is negative, and sputum PJP PCR is negative. Therefore, PJP pneumonia seems unlikely, especially as patient has reportedly been adherent to prophylactic Bactrim. RVP negative. Sputum culture growing normal rosa. Also consider Crypto, Histo. Pulm was consulted --recommended deferring bronchoscopy at this time until hypotension and severe anemia resolved/improved, wanted to review outside imaging as his CT findings could be fibrotic changes related to history of PJP, intubation, and pneumothorax. Pulm signed off. For his diarrhea, C diff, stool PCR panel, and stool Giardia Ag are negative. Would consider disseminated MAC as a cause of diarrhea. Also consider other infectious etiologies such as microsporidium, cryptosporidium, isospora, CMV. Consider lymphoma, Kaposi's sarcoma. His hypotension may be reflective of failure to thrive, adrenal insufficiency, fungal infections, MTB or disseminated ROSA/MAC potentially. Most concerned for disseminated MAC at this time, which could explain pulmonary symptoms, diarrhea, weight loss, anemia. CT did show mild hepatosplenomegaly, apparent wall thickening of multiple jejunal loops, several mildly enlarged mesenteric lymph nodes--seems nonspecific, but could be seen in disseminated MAC. Review of a scanned note from 01/22/23 indicates a prior history of disseminated MAC in 11/2021, and history of CMV infection. While incarcerated, he has seen LINUS Weaver at [facility] twice via telemedicine for his HIV care. Previously saw a Dr. Escamilla (?) of infectious disease in [facility]. Recommendations: -Follow-up AFB identification -Follow-up mycobacterial blood culture, stool O&P, urine histo Ag, serum Crypto Ag, serum CMV PCR, galactomannan -Discontinued cefepime today as pt has completed empiric 7 day course -Continue Biktarvy daily for now -Continue Bactrim prophylaxis as active PJP is less likely as per above -Anticipate starting therapy for disseminated MAC. Would typically start clarithromycin plus ethambutol--however, he experienced visual changes on ethambutol, so would avoid this drug. His report of stopping ethambutol raises concern that the MAC could have developed resistance on a 1-drug (likely clarithro?) regimen. Will be important to obtain sensitivities if his cultures end up growing MAC. He will need minimum 2-drug therapy, which may require rifabutin which has drug-drug interactions with Biktarvy, in which case Biktarvy may have to be switched to dolutegravir plus Truvada. Alternative agents include fluoroquinolones, parenteral aminoglycoside. Will discuss this further with the patient. He would need minimum 12 months of MAC therapy, however pt would need CD4 count > 100 for at least 6 months before discontinuation of MAC treatment. Discussed with hospitalist. Will continue to follow. Please page [facility] Call Center with further questions. Admission and Anticipated Discharge Date Admission Date: May 09, 2023 Subjective Subsequent visit was provided via telemedicine using two-way real-time interactive telecommunication between the patient and the telemedicine provider. For the duration of the visit, the provider was performing the assessment from a different facility than the patient. This includesuse of bluetooth stethoscope forauscultationperformed by the telepresenter that the telemedicine provider can hear if described in the physical exam. [employer] Operator contact information: Please call [facility] Call Center [phone]. (Phone Number For Physician Use Only) After establishing a telemedicine visit, patient was: Patient was verified with two unique identifiers, Patient/authorized rep acknowledged consent and understanding and Gave permission to continue telehealth session Time Spent with Patient: Subsequent => 35 min -BP 81/50 overnight, improved this AM -Pt reports weight loss from 166 lbs in 01/2023, to 150 lbs on admission here -Lately, he has been feeling more fatigued, feeling winded while walking (no shortness of breath at rest), a more persistent choking cough, water diarrhea x 3-4 weeks. The diarrhea has been affecting his ability to sleep. Denies blood in his stools. Imodium started here has been helping to decrease the frequ ency/urgency of his stools. -He is breathing comfortably while sitting in bed -Denies hemoptysis, night sweats. Has never traveled outside of the country -Reports intermittently having some blood when he blows his nose -States he had PJP in Aug 2019, after which he began taking his HIV medications and gained his weight back. He felt better, then decided to stop taking his medication around the end of 2020. His body started "shutting down" again in 2021, and he was admitted to [facility] at that time. Pt uncertain on the details of his hospitalization. Review of a scanned record from 01/18 indicates he was hospitalized from 10/2021-03/2022 related to spontaneous pneumothorax. Since his hospitalization, he has been consistently taking his medication for over 1 year. -He believes he was diagnosed with MAC in the last year and was supposed to take MAC therapy for 1 year. However, he developed L eye blurry vision, so he stopped the ethambutol. Unclear if he continued taking a 1-drug regimen for MAC at that time. He states he stopped MAC therapy before 1 year was up. Denies having a lymph node biopsy or bone marrow biopsy for MAC diagnosis. -CMV does not sound familiar to him, uncertain whether he had this. Review of System A complete ROS was performed and is negative except as mentioned in the HPI. Physical Exam Physical Exam: GEN: sitting up in bed in NAD. HEENT: Normocephalic, atraumatic. No thrush. RESP: No increased work of breathing ABD: Soft, non-distended. LLQ ttp EXT: No LE edema. Warm, well-perfused. SKIN: No lesions or rashes on exposed skin. NEURO: Alert and oriented. Answers all questions appropriately. Speech not slurred. PSYCH: Normal mood, affect appropriate. Results & Data Vital Signs (Past 12 Hours) Vital Signs Temp Pulse Pulse Resp BP BP Pulse Ox 05/22/23 08:22 36.4 C L 85 20 99/68 L 98 05/22/23 07:31 89 05/22/23 03:03 36.7 C 88 17 81/50 L 91 05/21/23 22:55 36.9 C 85 16 95/53 L 90 O2 Del Method 05/22/23 08:22 Room Air 05/22/23 07:31 05/22/23 03:03 Room Air 05/21/23 22:55 Room Air Laboratory Results Short CBC 05/22/23 Range/Units 06:14 WBC 15.50 H (4.8-10.8) K/ul Hgb 7.8 L (14.0-18.0) g/dl Hct 24.3 L (42.0-52.0) % Plt Count 286 (130-400) K/uL BMP 05/22/23 06:14 Sodium 134 L Potassium 3.7 Chloride 106 Carbon Dioxide 23 BUN 12 Creatinine 0.98 Glucose 103 H Calcium 7.8 L Medications Administered Current Inpatient Medications Acetaminophen (Acetaminophen 325 Mg Tab) 650 mg PO Q4H PRN PRN Reason: pain (1-4) /fever Stop: 06/08/23 15:32 Last Admin: 05/17/23 03:25 Dose: 650 mg Bictegravir/Emtricitabine/Tenofovir (Biktarvy) 1 each PO DAILY [facility]; Protocol Stop: 06/09/23 08:59 Last Admin: 05/22/23 08:12 Dose: 1 each Cholestyramine Resin (Cholestyramine Light 4 Gm Pkt) 4 gm PO BID@1000,2200 [facility] Stop: 06/20/23 17:34 Last Admin: 05/22/23 10:49 Dose: 4 gm Dicyclomine HCl (Dicyclomine Hcl 10 Mg Cap) 10 mg PO TID PRN PRN Reason: Diarrhea Stop: 06/15/23 09:40 Last Admin: 05/21/23 13:02 Dose: 10 mg Guaifenesin/Dextromethorphan (Guaifenesin/Dextrom Syrup 200mg/20mg 10ml Udc) 10 ml PO Q6H [facility] Stop: 06/20/23 17:59 Last Admin: 05/22/23 16:55 Dose: 10 ml Cefepime HCl 2,000 mg/ Syringe 20 mls @ 5 mls/min IV Q8H [facility]; Protocol Stop: 05/23/23 16:59 Last Admin: 05/22/23 16:54 Dose: 5 mls/min Folic Acid 1 mg/ Syringe 10 mls @ 5 mls/min IV DAILY@0900 [facility] Stop: 06/20/23 08:59 Last Admin: 05/22/23 08:13 Dose: 5 mls/min Iron Sucrose 200 mg/ Sodium (Chloride) 110 mls @ 220 mls/hr IV Q2D [facility] Stop: 05/24/23 08:29 Last Infusion: 05/22/23 09:12 Dose: Infused Loperamide HCl (Loperamide Hcl 2 Mg Cap) 2 mg PO QID [facility] Stop: 06/18/23 20:59 Last Admin: 05/22/23 16:56 Dose: 2 mg Menthol (Cough Drop (Sugar Free) Tunde 24 Tunde/1 Box) 1 tunde BUCCAL UD PRN PRN Reason: Sore Throat Stop: 06/09/23 10:20 Last Admin: 05/18/23 23:38 Dose: 1 tunde Pantoprazole Sodium (Pantoprazole 40 Mg Tab) 40 mg PO BID [facility] Stop: 06/17/23 20:59 Last Admin: 05/22/23 08:13 Dose: 40 mg Promethazine HCl (Promethazine Hcl 12.5 Mg/10 Ml Udp) 12.5 mg PO Q6H PRN PRN Reason: Cough Stop: 06/10/23 13:03 Last Admin: 05/19/23 23:20 Dose: 12.5 mg Trimethoprim/Sulfamethoxazole (Sulfamethoxazole/Trimethoprim Ds 800/160mg Tab) 1 tab PO DAILY [facility] Stop: 06/17/23 08:59 Last Admin: 05/22/23 08:13 Dose: 1 tab Umeclidinium [place] (Umeclidinium [place] 62.5mcg/Blister 7 Puffs/Inhaler) 1 puffs INH DAILY [facility] Stop: 06/14/23 16:14 Last Admin: 05/22/23 08:13 Dose: 1 puffs
[2023-05-22] MEDS: CHOLESTYRAMINE LIGHT 4 GM PKT PO SCH ×2 (10:49→21:23)
--- NOTE | 2023-05-22 13:51 | Hospitalist Progress Note ---
Date of Service May 22, 2023 Assessment & Plan (1) Cough: Plan: Pt is a 42 yo male with a h/o HIV, PJP and MAC PNA, here with cough x 1 month, no hypoxia AFB smears negative, AFB cultures of the sputum now + in 2/3, AFB blood cx pending. TB vs MAC and sensitivities pending on AFB sputum cxs cryptococcal antigen and histoplasmosis antigen pending disseminated MAC is a concern given constellation of symptoms as per ID recommendations PJP essentially ruled out with negative Fungitell, normal LDH, and consistently taking Bactrim prophylaxis Respiratory bio fire negative Quantferon gold negative but could be false negative in the setting of low CD4 count Sputum cultures-heavy normal rosa CXR showed "right lung with apparent pleural thickening" History of collapsed lung and intubation in 2021 with 4 month long hospital stay and multiple chest tubes, previous pleurodesis CTA chest revealed no pulmonary emboli, but identified bronchiectasis with chronic interstitial lung disease MRSA Screen negative; vancomycin discontinued Completed cefepime x7-day course for empiric treatment of bacterial PNA Pulmonary said bronchoscopy deferred at this time, chest imaging findings could be from previous infections/scarring. Now with AFB sputum positive, await final ID and sensitivities and will likely need MAC vs TB therapy Place back on TB precautions 05/22 as per infection control recommendations Continue guaifenesin w/ DM scheduled F/u crypto and histo studies F/u AFB blood cx Appreciate ID recommendations (2) Hypotension: Plan: Could be hypovolemia from diarrhea. Patient reports he chronically has lower blood pressures when he is laying down at rest but they improve when he sits up. His severe anemia is also likely contributing. His ACTH stim test was essentially normal and his a.m. cortisol level was normal-he does not have adrenal insufficiency Asymptomatic (3) Anemia: Plan: microcytic anemia, acute on chronic iron deficiency anemia,he reports being told he was anemic even a year ago and thinks it is related to his HIV medication Clinically, patient denies melena and blood in stool/urine, No signs of active bleeding Fecal occult stool positive but could be from iron pills Folate low at 4.3-was given IV folate and improved to 5-continue IV folate as he is not absorbing much with gut wall edema Continue Protonix 40 mg p.o. bid in case of GI bleeding-GI defers EGD and colonoscopy at this time due to Pulmonary issues B12 is normal, iron deficiency is severe -replacing with IV Venofer Haptoglobin is high, LDH and TBili normal-no hemolysis hemoglobin electrophoresis is normal but does not rule out alpha thalassemia Celiac TTG negative Appreciate hematology consultation Received approximately 1 g of IV Venofer and 1 unit PRBCs earlier in this hospitalization-continue to give 600 mg of IV Venofer over 6 days as per hematology-last dose 05/24 GI recommends EGD and colonoscopy when patient is more stable-this could be in the near future- He would need biopsies for CMV Follow CBC-hemoglobin stable at 7.8 with ongoing likely reactive leukocytosis (4) HIV (human immunodeficiency virus infection): Plan: Dx in 2013, treatment with [facility] at [place] [facility] Rose Mccray at [place] for HIV care On bactrim ds once daily for prophylaxis CD4 count 69 Continue Biktarvy ID consult here appreciated (5) Diarrhea: Plan: Ongoing for over a month with weight loss Could be related to HIV, CMV, or disseminated MAC given +AFB in sputum Giardia negative, stool PCR negative to include Cryptosporidium HIDA scan negative, MRCP with dilated CBD but no choledocholithiasis. LFTs normal Needs colonoscopy but GI deferring for now until acute pulmonary issues resolve Celiac panel negative Check CMV titers, stool O&P If AFB blood cxs positive, would confirm disseminated MAC. Likely to start empiric MAC tx soon as per ID Started cholestyramine in addition to Imodium and bentyl and seems to be slowing down Plan Disposition-continued stay but eventually back to [facility] Admission and Anticipated Discharge Date Admission Date: May 09, 2023 Subjective Pt feels diarrhea frequency has decreased today but consistency of stool is still watery, nonbloody. Still with cough. No abd pain. I discussed his care with ID and with PULM. Tele with NSR rates 80-90s Physical Exam Constitutional: WD/WN, vitals as above Eyes: + anicteric sclerae Respiratory: normal respiratory effort and + cough Auscultation: + crackles (right middle lung field); no rhonchi and no wheezes Cardiovascular: RRR, no murmur, no edema Gastrointestinal (Abdomen): normal bowel sounds, soft, nontender, no hepatosplenomegaly Psychiatric: A+Ox3, euthymic affect Results & Data Results & Data Vital Signs (Past 12 Hours) Vital Signs Temp Pulse Pulse Resp BP BP Pulse Ox 05/22/23 11:45 36.6 C 81 20 96/62 L 95 05/22/23 11:18 05/22/23 08:22 36.4 C L 85 20 99/68 L 98 05/22/23 07:31 89 05/22/23 03:03 36.7 C 88 17 81/50 L 91 O2 Del Method 05/22/23 11:45 Room Air 05/22/23 11:18 Room Air 05/22/23 08:22 Room Air 05/22/23 07:31 05/22/23 03:03 Room Air Laboratory Results CBC, BMP, magnesium reviewed AFB+ sputum cx x 2 PG Care Time/CCT Total # of Minutes Spent Total Time Spent with Patient: Total time spent is greater than 50% in coordination of care (as documented) at patient's floor/unit and/or counseling patient: Coding Level of Care Code 43370 SUB INP/OBS CARE 2/35MIN Diagnoses Cough R05.9 Hypotension I95.9 Anemia D64.9 HIV (human immunodeficiency virus infection) B20 Diarrhea R19.7
[2023-05-23 04:24] LABS: Basophils # (auto) 0.08 K/uL (0.00-0.20); Basophils % (auto) 0.6 %; Eosinophils # (auto) 0.66 K/uL (0.00-0.50); Eosinophils % (auto) 4.9 %; Hematocrit (blood only) 25.8 % (42.0-52.0); Hemoglobin 8.5 g/dl (14.0-18.0); Immature Granulocytes # (auto) 0.13 K/uL (0.01-0.20); Lymphocytes # (auto) 1.64 K/uL (1.20-3.40); Lymphocytes % (auto) 12.1 %; Mean Corpuscular Hemoglobin 21.8 pg (25.0-34.0); Mean Corpuscular Hgb Conc 32.9 g/dL (32.0-36.0); Mean Corpuscular Volume 66.2 fL (80.0-100.0); Monocytes # (auto) 0.67 K/uL (0.11-0.59); Neutrophils # (auto) 10.34 K/uL (1.40-6.50); Neutrophils % (auto) 76.4 %; RDW Standard Deviation 52.4 fL (36.4-46.3); White Blood Count 13.52 K/ul (4.8-10.8)
[2023-05-23 04:50] LABS: Anisocytosis Present; Echinocytes 1+; Mean Platelet Volume 9.3 fL (9.4-12.4); Microcytosis Present; Platelet Count 296 K/uL (130-400); Polychromasia 1+; Schistocytes 1+
[2023-05-23 04:52] LABS: Calcium 8.2 mg/dl (8.6-10.3); Magnesium 1.7 mg/dl (1.7-2.4); Potassium 3.9 mmol/L (3.5-5.1)
[2023-05-23 04:58] LABS: BUN Creatinine Ratio 12.8 (10-20); Creatinine Clr Calc Pharmacy 109.8 ml/min; Est GFR (African American) 125.7 ml/min; Est GFR (Non-African American) 108.5 ml/min
[2023-05-23] MEDS: guaiFENesin/DEXTROM SYRUP 200MG/20MG 10ML UDC PO SCH ×3 (06:02→17:34)
[2023-05-23] MEDS: FOLIC ACID 1 MG in SYRINGE 9.8 ML IV SCH (08:51)
[2023-05-23] MEDS: BIKTARVY PO SCH (08:51)
[2023-05-23] MEDS: SULFAMETHOXAZOLE/TRIMETHOPRIM DS 800/160MG TAB PO SCH (08:53)
[2023-05-23] MEDS: UMECLIDINIUM BROMIDE 62.5MCG/BLISTER 7 PUFFS/INHALER INH SCH (08:54)
[2023-05-23] MEDS: LOPERAMIDE HCL 2 MG CAP PO SCH ×4 (08:57→20:04)
[2023-05-23] MEDS: MAGNESIUM SULFATE / D5W 1 GM/100 ML BAG IV SCH ×2 (08:57→10:57)
[2023-05-23] MEDS: CHOLESTYRAMINE LIGHT 4 GM PKT PO SCH ×2 (09:00→21:20)
--- NOTE | 2023-05-23 10:48 | Hospitalist Progress Note ---
Date of Service May 23, 2023 Assessment & Plan (1) Cough: Plan: Pt is a 42 yo male with a h/o HIV, PJP and MAC PNA, here with cough x 1 month, no hypoxia AFB smears negative, AFB cultures of the sputum now + in 2/3, AFB blood cx pending. TB vs MAC and sensitivities pending on AFB sputum cxs cryptococcal antigen and histoplasmosis antigen pending disseminated MAC is a concern given constellation of symptoms as per ID recommendations PJP essentially ruled out with negative Fungitell, normal LDH, and consistently taking Bactrim prophylaxis Respiratory bio fire negative Quantferon gold negative but could be false negative in the setting of low CD4 count Sputum cultures-heavy normal rosa CXR showed "right lung with apparent pleural thickening" History of collapsed lung and intubation in 2021 with 4 month long hospital stay and multiple chest tubes, previous pleurodesis CTA chest revealed no pulmonary emboli, but identified bronchiectasis with chronic interstitial lung disease MRSA Screen negative; vancomycin discontinued Completed cefepime x7-day course for empiric treatment of bacterial PNA Pulmonary said bronchoscopy deferred at this time, chest imaging findings could be from previous infections/scarring. Now with AFB sputum positive, await final ID and sensitivities and will likely need MAC vs TB therapy Place back on TB precautions 05/22 as per infection control recommendations Continue guaifenesin w/ DM scheduled F/u crypto and histo studies F/u AFB blood cx Appreciate ID recommendations-deciding about apprioriate empiric MAC therapy given previous vision loss with ethambutol (2) Anemia: Plan: microcytic anemia, acute on chronic iron deficiency anemia,he reports being told he was anemic even a year ago and thinks it is related to his HIV medication Clinically, patient denies melena and blood in stool/urine, No signs of active bleeding Fecal occult stool positive but could be from iron pills Folate low at 4.3-was given IV folate and improved to 5-continue IV folate as he is not absorbing much with gut wall edema Continue Protonix 40 mg p.o. bid in case of GI bleeding-GI defers EGD and colonoscopy at this time due to Pulmonary issues B12 is normal, iron deficiency is severe -replacing with IV Venofer Haptoglobin is high, LDH and TBili normal-no hemolysis hemoglobin electrophoresis is normal but does not rule out alpha thalassemia Celiac TTG negative Appreciate hematology consultation Received approximately 1 g of IV Venofer and 1 unit PRBCs earlier in this hospitalization-continue to give 600 mg of IV Venofer over 6 days as per hematology-last dose 05/24 GI recommends EGD and colonoscopy when patient is more stable-this could be in the near future- He would need biopsies for CMV Follow CBC-hemoglobin improving at 8.5 with ongoing likely reactive leukocytosis which is also now improving (3) Hypotension: Plan: Could be hypovolemia from diarrhea. Patient reports he chronically has lower blood pressures when he is laying down at rest but they improve when he sits up. His severe anemia is also likely contributing. His ACTH stim test was essentially normal and his a.m. cortisol level was normal-he does not have adrenal insufficiency Asymptomatic (4) HIV (human immunodeficiency virus infection): Plan: Dx in 2013, treatment with [facility] at [place] [facility] Rose Mccray at [place] for HIV care On bactrim ds once daily for prophylaxis CD4 count 69 Continue Biktarvy ID consult here appreciated (5) Diarrhea: Plan: Ongoing for over a month with weight loss Could be related to HIV, CMV, or disseminated MAC given +AFB in sputum Giardia negative, stool PCR negative to include Cryptosporidium HIDA scan negative, MRCP with dilated CBD but no choledocholithiasis. LFTs normal Needs colonoscopy but GI deferring for now until acute pulmonary issues resolve Celiac panel negative Check CMV titers, stool O&P-pending If AFB blood cxs positive, would confirm disseminated MAC. Likely to start empiric MAC tx soon as per ID Started cholestyramine in addition to Imodium and bentyl and seems to be slowing down-asked RN to give dose of bentyl Plan Disposition-continued stay but eventually back to correction after AFB cultures resulted Admission and Anticipated Discharge Date Admission Date: May 09, 2023 Subjective Pt continues to c/o diarrhea and cough. Has not taken any bentyl in 2 days No other acute issues Tele reviewed and no arrhythmias Physical Exam Constitutional: WD/WN, vitals as above Eyes: + anicteric sclerae Respiratory: normal respiratory effort and + cough Auscultation: + crackles (right middle lung field); no rhonchi and no wheezes Cardiovascular: RRR, no murmur, no edema Gastrointestinal (Abdomen): normal bowel sounds, soft, nontender, no hepatosplenomegaly Psychiatric: A+Ox3, euthymic affect Results & Data Results & Data Vital Signs (Past 12 Hours) Vital Signs Temp Pulse Pulse Resp BP Pulse Ox O2 Del Method 05/23/23 08:00 36.4 C L 80 20 90/57 L 96 Room Air 05/23/23 04:00 36.8 C 81 15 98/61 L 96 Room Air 05/23/23 00:00 89 05/22/23 23:30 36.8 C 93 H 18 98/62 L 93 Room Air Laboratory Results CBC, BMP, magnesium reviewed PG Care Time/CCT Total # of Minutes Spent Total Time Spent with Patient: Total time spent is greater than 50% in coordination of care (as documented) at patient's floor/unit and/or counseling patient: Coding Level of Care Code 37042 SUB INP/OBS CARE 2/35MIN Diagnoses Cough R05.9 Anemia D64.9 Hypotension I95.9 HIV (human immunodeficiency virus infection) B20 Diarrhea R19.7
--- NOTE | 2023-05-23 13:52 | Infectious Disease Progress Nt ---
Date of Service May 23, 2023 Assessment & Plan (1) Diarrhea: (2) HIV (human immunodeficiency virus infection): (3) Hypotension: (4) Cough: Plan Micro: 05/23 Urine legionella Ag: pending 05/21 Urine histo Ag: pending 05/21 Serum Aspergillus Ag: pending 05/21 Serum CMV PCR: pending 05/21 Stool O&P: pending 05/21 Serum CrAg: pending 05/17 AFB blood culture: pending 05/16 Sputum AFB smear neg, cx +AFB, pending ID 05/16 Sputum AFB smear neg, cx +AFB, pending ID 05/15 Sputum AFB smear neg, cx +AFB, pending ID 05/15 Sputum cx: heavy normal rosa 05/15 Sputum cx: heavy normal rosa 05/15 Sputum AFB smear neg, cx +AFB, pending ID 05/12 Stool Giardia Ag: neg 05/11 Quant gold: neg 05/10 Sputum cx: mod normal rosa 05/10 Sputum PJP PCR: neg 05/10 C diff neg 05/10 Stool PCR panel: neg 05/09 BDG < 31 05/09 RVP neg 05/09 BCx x2: NG Abx: Cefepime 05/09-05/11, 05/16 - 05/22 Azithro 05/11 - 05/16 Vanc 05/09 HIV meds: Biktarvy TMP/SMX 1 DS tab daily Problems: #HIV/AIDS: CD4 69, VL UD. Reportedly adherent to Biktarvy, Bactrim ppx #Pneumonia, consolidation and GGO #Hypotension #weight loss #Fever: on 05/17 #Anemia #Currently Incarcerated #Persistent Leukocytosis #History of PJP #History of MAC 42 yo incarcerated M with HIV (CD4 69/5%, VL UD in 04/2023, adherent to Biktarvy and Bactrim ppx), vitamin D deficiency, FREDIS, PJP pneumonia (2019), prior diagnosis of MAC who presented on 05/09 due to hypotension to 80s/50s, worsening cough, diarrhea, admitted with c/f disseminated MAC. Pt has had watery non- bloody diarrhea x 3-4 weeks, dry cough ongoing x 1.5 months but worsening, mild SOB on exertion over the past few weeks. Denied fevers, chills, night sweats, hemoptysis. Reported unintentional weight loss (166 --> 146 lbs over 3.5 months). On presentation, pt was afebrile, BP 90/61, SpO2 100% on room air. Labs showed WBC 11.88, Hb 7.3, procalcitonin 1, lactate 1.1. UA negative. MRSA nares negative. RVP negative. LDH 146. CTA chest showed no PE, bronchiectasis with chronic interstitial lung disease and biapical blebs and bulla formation, patchy and irregular areas of consolidation most pronounced within the right middle lobe and lingula with upper lung zone predominant groundglass densities may also be related to the chronic lung disease however superimposed infectious or inflammatory pneumonitis could appear similarly. CT A/P with IV contrast showed nonspecific wall thickening of multiple jejunal loops, may be related to underdistention or other etiologies such as hypoalbuminemia, nonspecific enteritis given mesenteric stranding could appear similarly, a few mildly enlarged mesenteric lymph nodes, likely benign. Patient was started on empiric cefepime and azithromycin for possible bacterial pneumonia, completed empiric 7 day course of cefepime on 05/22. He spiked a fever to 38.1 on 05/17. Remains with leukocytosis to 14-16. Continues with soft BPs. For his pulmonary findings, pt underwent TB evaluation, with 3 negative sputum AFB smears, quantiferon gold negative. AFB cultures currently growing AFB, awaiting identification. Most likely indicative of MAC, given pt report of history of MAC in the last year for which he did not complete treatment, and stopped ethambutol prematurely due to some L eye vision changes. Could also consider TB, given history of incarceration, but no history of travel outside the country, hemoptysis, night sweats. BDG is negative, and sputum PJP PCR is negative. Therefore, PJP pneumonia is unlikely, especially as patient has reportedly been adherent to prophylactic Bactrim. RVP negative. Sputum culture growing normal rosa. Also consider Crypto, Histo. Pulm was consulted--recommended deferring bronchoscopy at this time until hypotension and severe anemia resolved/improved, wanted to review outside imaging as his CT findings could be fibrotic changes related to history of PJP, intubation, and pneumothorax. Pulm signed off. For his diarrhea, C diff, stool PCR panel, and stool Giardia Ag are negative. Would consider disseminated MAC as a cause of diarrhea. Also consider other infectious etiologies such as microsporidium, isospora, CMV. Consider lymphoma, Kaposi's sarcoma. His hypotension may be reflective of failure to thrive, adrenal insufficiency, fungal infections, MTB or disseminated ROSA/MAC potentially. Most concerned for disseminated MAC at this time, which could explain his constellation of pulmonary symptoms, diarrhea, weight loss, anemia. CT did show mild hepatosplenomegaly, apparent wall thickening of multiple jejunal loops, several mildly enlarged mesenteric lymph nodes--seems nonspecific, but could be seen in disseminated MAC. Review of a scanned note from 01/22/23 indicates a prior history of disseminated MAC in 11/2021, and history of CMV infection. While incarcerated, he has seen LINUS Weaver at [facility] twice via telemedicine for his HIV care. Previously saw a Dr. Escamilla (?) of infectious disease in [facility]. Recommendations: -Follow-up AFB identification -Follow-up mycobacterial blood culture, stool O&P, urine histo Ag, serum Crypto Ag, serum CMV PCR, galactomannan -Continue Biktarvy daily for now -Continue Bactrim prophylaxis as active PJP is less likely as per above -Anticipate starting therapy for disseminated MAC. Standard therapy is azithromycin plus ethambutol--however, he experienced visual changes on ethambutol, so would avoid this drug. His report of stopping ethambutol alone raises concern that the MAC could have developed resistance on a 1-drug (likely macrolide?) regimen. Will be important to obtain sensitivities if his cultures end up growing MAC. He will need minimum 2-drug therapy, which may require rifabutin which has drug-drug interactions with Biktarvy, in which case Biktarvy may have to be switched to dolutegravir plus Truvada. Alternative agents include fluoroquinolones, parenteral aminoglycoside. He would need minimum 12 months of MAC therapy, however pt would need CD4 count > 100 for at least 6 months before discontinuation of MAC treatment. -I discussed the above with the patient today, who is hesitant because he is concerned about side effects of medications. I explained that dolutegravir plus Truvada is very similar to Biktarvy, and that renal/bone toxicities of TDF (vs TAF) are generally seen after decades of therapy. The pt could be switched back to Biktarvy when he completes MAC therapy. Pt agreed to this. -Will hold off on initiating empiric MAC treatment for now, until there is confirmation that the AFB is not TB (otherwise, single drug rifabutin in treatment of TB could lead to resistance) Will continue to follow. Please page [facility] with further questions. Admission and Anticipated Discharge Date Admission Date: May 09, 2023 Subjective Subsequent visit was provided via telemedicine using two-way real-time interactive telecommunication between the patient and the telemedicine provider. For the duration of the visit, the provider was performing the assessment from a different facility than the patient. This includesuse of bluetooth stethoscope forauscultationperformed by the telepresenter that the telemedicine provider can hear if described in the physical exam. [employer] contact information: Please call [facility] . (Phone Number For Physician Use Only) After establishing a telemedicine visit, patient was: Patient was verified with two unique identifiers, Patient/authorized rep acknowledged consent and understanding and Gave permission to continue telehealth session Time Spent with Patient: Subsequent => 25 min pt denies complaints BP 90s/50s-60s Review of System A complete ROS was performed and is negative except as mentioned in the HPI. Physical Exam Physical Exam: GEN: laying in bed in NAD. RESP: No increased work of breathing NEURO: Alert and oriented. Answers all questions appropriately. Speech not slurred. PSYCH: Normal mood, affect appropriate. Results & Data Vital Signs (Past 12 Hours) Vital Signs Temp Pulse Pulse Resp BP Pulse Ox O2 Del Method 05/23/23 11:50 36.7 C 78 16 94/52 L 96 Room Air 05/23/23 08:00 82 05/23/23 08:00 36.4 C L 80 20 90/57 L 96 Room Air 05/23/23 04:00 36.8 C 81 15 98/61 L 96 Room Air Laboratory Results Short CBC 05/23/23 Range/Units 03:48 WBC 13.52 H (4.8-10.8) K/ul Hgb 8.5 L (14.0-18.0) g/dl Hct 25.8 L (42.0-52.0) % Plt Count 296 (130-400) K/uL BMP 05/23/23 03:48 Sodium 132 L Potassium 3.9 Chloride 105 Carbon Dioxide 23 BUN 11 Creatinine 0.86 Glucose 89 Calcium 8.2 L Medications Administered Current Inpatient Medications Acetaminophen (Acetaminophen 325 Mg Tab) 650 mg PO Q4H PRN PRN Reason: pain (1-4) /fever Stop: 06/08/23 15:32 Last Admin: 05/17/23 03:25 Dose: 650 mg Bictegravir/Emtricitabine/Tenofovir (Biktarvy) 1 each PO DAILY [facility]; Protocol Stop: 06/09/23 08:59 Last Admin: 05/23/23 08:51 Dose: 1 each Cholestyramine Resin (Cholestyramine Light 4 Gm Pkt) 4 gm PO BID@1000,2200 [facility] Stop: 06/20/23 17:34 Last Admin: 05/23/23 09:00 Dose: 4 gm Dicyclomine HCl (Dicyclomine Hcl 10 Mg Cap) 10 mg PO TID PRN PRN Reason: Diarrhea Stop: 06/15/23 09:40 Last Admin: 05/23/23 14:40 Dose: 10 mg Guaifenesin/Dextromethorphan (Guaifenesin/Dextrom Syrup 200mg/20mg 10ml Udc) 10 ml PO Q6H [facility] Stop: 06/20/23 17:59 Last Admin: 05/23/23 12:48 Dose: 10 ml Folic Acid 1 mg/ Syringe 10 mls @ 5 mls/min IV DAILY@0900 [facility] Stop: 06/20/23 08:59 Last Admin: 05/23/23 08:51 Dose: 5 mls/min Iron Sucrose 200 mg/ Sodium (Chloride) 110 mls @ 220 mls/hr IV Q2D [facility] Stop: 05/24/23 08:29 Last Infusion: 05/22/23 09:12 Dose: Infused Loperamide HCl (Loperamide Hcl 2 Mg Cap) 2 mg PO QID [facility] Stop: 06/18/23 20:59 Last Admin: 05/23/23 12:47 Dose: 2 mg Menthol (Cough Drop (Sugar Free) Tunde 24 Tunde/1 Box) 1 tunde BUCCAL UD PRN PRN Reason: Sore Throat Stop: 06/09/23 10:20 Last Admin: 05/18/23 23:38 Dose: 1 tunde Promethazine HCl (Promethazine Hcl 12.5 Mg/10 Ml Udp) 12.5 mg PO Q6H PRN PRN Reason: Cough Stop: 06/10/23 13:03 Last Admin: 05/19/23 23:20 Dose: 12.5 mg Trimethoprim/Sulfamethoxazole (Sulfamethoxazole/Trimethoprim Ds 800/160mg Tab) 1 tab PO DAILY [facility] Stop: 06/17/23 08:59 Last Admin: 05/23/23 08:53 Dose: 1 tab Umeclidinium Melvin (Umeclidinium Melvin 62.5mcg/Blister 7 Puffs/Inhaler) 1 puffs INH DAILY [facility] Stop: 06/14/23 16:14 Last Admin: 05/23/23 08:54 Dose: 1 puffs
[2023-05-23] MEDS: DICYCLOMINE HCL 10 MG CAP PO PRN ×2 (14:40→20:04)
[2023-05-24] MEDS: guaiFENesin/DEXTROM SYRUP 200MG/20MG 10ML UDC PO SCH ×5 (00:11→23:43)
[2023-05-24 05:06] LABS: Basophils # (auto) 0.06 K/uL (0.00-0.20); Basophils % (auto) 0.5 %; Eosinophils # (auto) 0.47 K/uL (0.00-0.50); Eosinophils % (auto) 3.7 %; Hematocrit (blood only) 26.8 % (42.0-52.0); Hemoglobin 8.7 g/dl (14.0-18.0); Immature Granulocytes # (auto) 0.13 K/uL (0.01-0.20); Lymphocytes # (auto) 1.69 K/uL (1.20-3.40); Lymphocytes % (auto) 13.3 %; Mean Corpuscular Hemoglobin 21.3 pg (25.0-34.0); Mean Corpuscular Hgb Conc 32.5 g/dL (32.0-36.0); Mean Corpuscular Volume 65.7 fL (80.0-100.0); Monocytes # (auto) 0.72 K/uL (0.11-0.59); Monocytes % (auto) 5.7 %; Neutrophils # (auto) 9.63 K/uL (1.40-6.50); Neutrophils % (auto) 75.8 %; RDW Coefficient of Variation 23.3 % (11.5-14.5); Red Blood Count 4.08 M/uL (4.70-6.10)
[2023-05-24 05:23] LABS: BUN Creatinine Ratio 14.3 (10-20); Creatinine Clr Calc Pharmacy 113.1 ml/min; Est GFR (African American) 126.9 ml/min; Est GFR (Non-African American) 109.5 ml/min; Magnesium 1.8 mg/dl (1.7-2.4); Potassium 4.1 mmol/L (3.5-5.1)
[2023-05-24 06:01] LABS: Anisocytosis Present; Hypochromasia Present; Mean Platelet Volume 9.3 fL (9.4-12.4); Ovalocytes 1+; Platelet Count 326 K/uL (130-400)
[2023-05-24] MEDS: UMECLIDINIUM BROMIDE 62.5MCG/BLISTER 7 PUFFS/INHALER INH SCH (08:42)
[2023-05-24] MEDS: BIKTARVY PO SCH (08:43)
[2023-05-24] MEDS: SULFAMETHOXAZOLE/TRIMETHOPRIM DS 800/160MG TAB PO SCH (08:44)
[2023-05-24] MEDS: FOLIC ACID 1 MG in SYRINGE 9.8 ML IV SCH (08:49)
[2023-05-24] MEDS: IRON SUCROSE 200 MG in 0.9 % SODIUM CHLORIDE 100 ML IV SCH (09:13)
[2023-05-24] MEDS: LOPERAMIDE HCL 2 MG CAP PO SCH ×4 (09:36→20:29)
[2023-05-24] MEDS: CHOLESTYRAMINE LIGHT 4 GM PKT PO SCH ×2 (09:37→22:36)
[2023-05-24] MEDS: DICYCLOMINE HCL 10 MG CAP PO PRN (12:16)
--- NOTE | 2023-05-24 16:04 | Infectious Disease Progress Nt ---
Date of Service May 24, 2023 Assessment & Plan (1) Diarrhea: (2) HIV (human immunodeficiency virus infection): (3) Hypotension: (4) Cough: Plan Micro: 05/23 Urine legionella Ag: pending 05/21 Urine histo Ag: pending 05/21 Serum Aspergillus Ag: pending 05/21 Serum CMV PCR: pending 05/21 Stool O&P: pending 05/21 Serum CrAg: pending 05/17 AFB blood culture: pending 05/16 Sputum AFB smear neg, cx +AFB, pending ID 05/16 Sputum AFB smear neg, cx +AFB, pending ID 05/15 Sputum AFB smear neg, cx +AFB, pending ID 05/15 Sputum cx: heavy normal rosa 05/15 Sputum cx: heavy normal rosa 05/15 Sputum AFB smear neg, cx +AFB, pending ID 05/12 Stool Giardia Ag: neg 05/11 Quant gold: neg 05/10 Sputum cx: mod normal rosa 05/10 Sputum PJP PCR: neg 05/10 C diff neg 05/10 Stool PCR panel: neg 05/09 BDG < 31 05/09 RVP neg 05/09 BCx x2: NG Abx: Cefepime 05/09-05/11, 05/16 - 05/22 Azithro 05/11 - 05/16 Vanc 05/09 HIV meds: Biktarvy TMP/SMX 1 DS tab daily Problems: #HIV/AIDS: CD4 69, VL UD. Reportedly adherent to Biktarvy, Bactrim ppx #Pneumonia, consolidation and GGO #Hypotension #weight loss #Fever: on 05/17 #Anemia #Currently Incarcerated #Persistent Leukocytosis #History of PJP (2019) #History of MAC (2021): pt reports he stopped ethambutol due to vision changes, and did not complete 1 year of therapy 42 yo incarcerated M with HIV (CD4 69/5%, VL UD in 04/2023, adherent to Biktarvy and Bactrim ppx), vitamin D deficiency, FREDIS, PJP pneumonia (2019), prior diagnosis of MAC who presented on 05/09 due to hypotension to 80s/50s, worsening cough, diarrhea, weight loss, admitted with c/f disseminated MAC. Pt has had watery non-bloody diarrhea x 3-4 weeks, dry cough ongoing x 1.5 months but worsening, mild SOB on exertion over the past few weeks. Denied fevers, chills, night sweats, hemoptysis. Reported unintentional weight loss (166 --> 146 lbs over 3.5 months). On presentation, pt was afebrile, BP 90/61, SpO2 100% on room air. Labs showed WBC 11.88, Hb 7.3, procalcitonin 1, lactate 1.1. UA negative. MRSA nares negative. RVP negative. LDH 146. CTA chest showed no PE, bronchiectasis with chronic interstitial lung disease and biapical blebs and bulla formation, patchy and irregular areas of consolidation most pronounced within the right middle lobe and lingula with upper lung zone predominant groundglass densities may also be related to the chronic lung disease however superimposed infectious or inflammatory pneumonitis could appear similarly. CT A/P with IV contrast showed nonspecific wall thickening of multiple jejunal loops, may be related to underdistention or other etiologies such as hypoalbuminemia, nonspecific enteritis given mesenteric stranding could appear similarly, a few mildly enlarged mesenteric lymph nodes, likely benign. Patient was started on empiric cefepime and azithromycin for possible bacterial pneumonia, completed empiric 7 day course of cefepime on 05/22. He spiked a fever to 38.1 on 05/17, and has been afebrile since. Remains with mild leukocytosis. Continues with soft BPs. For his pulmonary findings, pt underwent TB evaluation, with 3 negative sputum AFB smears, quantiferon gold negative. AFB cultures currently growing AFB, awaiting identification. Most likely indicative of MAC, given pt report of history of MAC in the last year for which he did not complete treatment, and stopped ethambutol prematurely due to some L eye vision changes. Could also consider TB, given history of incarceration, but no history of travel outside the country, hemoptysis, night sweats. BDG is negative, and sputum PJP PCR is negative. Therefore, PJP pneumonia is unlikely, especially as patient has reportedly been adherent to prophylactic Bactrim. RVP negative. Sputum culture growing normal rosa. Also consider Crypto, Histo. Pulm was consulted--recommended deferring bronchoscopy at this time until hypotension and severe anemia resolved/improved, wanted to review outside imaging as his CT findings could be fibrotic changes related to history of PJP, intubation, and pneumothorax. Pulm signed off. For his diarrhea, C diff, stool PCR panel, and stool Giardia Ag are negative. Would consider disseminated MAC as a cause of diarrhea. Also consider other infectious etiologies such as microsporidium, isospora, CMV. Consider lymphoma, Kaposi's sarcoma. His hypotension may be reflective of failure to thrive, adrenal insufficiency, fungal infections, MTB or disseminated ROSA/MAC potentially. Most concerned for disseminated MAC at this time, which could explain his constellation of pulmonary symptoms, diarrhea, weight loss, anemia. CT did show mild hepatosplenomegaly, apparent wall thickening of multiple jejunal loops, several mildly enlarged mesenteric lymph nodes--seems nonspecific, but could be seen in disseminated MAC. Review of a scanned note from 01/22/23 indicates a prior history of disseminated MAC in 11/2021, and history of CMV infection. While incarcerated, he has seen LINUS Weaver at [facility] twice via telemedicine for his HIV care. Previously saw a Dr. Escamilla (?) of infectious disease in [facility]. Recommendations: -Consult ophthalmology to evaluate L eye vision changes. Please evaluate whether pt's visual complaints can be explained by ethambutol (optic neuritis), or whether the visual changes can be explained by CMV retinitis, toxoplasma, etc. Anticipate that pt will need to be treated for disseminated MAC, for which ethambutol is a critically important medication--otherwise, pt will require alternative therapies which have associated toxicities, difficult administration (IV), difficult to access (clofazimine) -Follow-up AFB identification (sample sent to [place] for identification reportedly [email or web address], new sample sent on 05/24) -Follow-up mycobacterial blood culture (sent 05/17), stool O&P, urine histo Ag, serum Crypto Ag, serum CMV PCR, galactomannan -Continue Biktarvy daily for now -Continue Bactrim prophylaxis as active PJP is less likely as per above -If the AFB is identified as MAC, then will need to start therapy for disseminated MAC. Standard therapy is azithromycin plus ethambutol--however, unclear whether he will be able to take ethambutol, as pt reports he had visual changes on ethambutol. He is highly concerned about medication side effects. His report of stopping ethambutol alone raises concern that the MAC could have developed resistance on a 1-drug (likely macrolide?) regimen--however, if he was monitored by an ID physician at that time, it seems unlikely that they would have allowed him to continue on 1 drug therapy for MAC. Will be important to obtain sensitivities if his cultures end up growing MAC. If ethambutol cannot be used, pt will need 3 drug therapy. This is because azithro plus rifamycin alone has higher chance of leading to resistance. Regimen would likely be: 1) azithromycin, 2) rifabutin, 3) IV amikacin three times a week or clofazimine PO. Clofazimine will be difficult to access--requires request for IND, and company is hesitant to allow its use in HIV patients based on a prior study. Uncertain whether IV amikacin can be given and drug levels monitored in a long term setting? 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 He would need minimum 12 months of MAC therapy, however pt would need CD4 count > 100 for at least 6 months before discontinuation of MAC treatment. -If pt requires rifabutin, note that this has drug-drug interactions with Biktarvy. Biktarvy would have to be switched to dolutegravir plus Truvada. -Will hold off on initiating empiric MAC treatment for now, until there is confirmation that the AFB is not TB (otherwise, single drug rifabutin in treatment of TB could lead to resistance) Discussed with Dr. Le. Will continue to follow. Please page [facility] with further questions. Admission and Anticipated Discharge Date Admission Date: May 09, 2023 Subjective This patient recommendation is based on a telemedicine consult request which was completed asynchronously through chart review and information provided by the primary physician. The patient was not seen or examined today. The evaluation is consultative in nature and all patient care and treatment decisions can either be accepted or rejected by the patient's primary hospital-based treating physician using their own independent medical judgment for their patient. Time Spent Reviewing Chart: 31+ minutes BP 85/48 this AM Afebrile WBC 12.7 Sample sent to [place] for AFB identification reportedly broke, and sample had to be resent today Review of System pt not seen Physical Exam Physical Exam: pt not seen Results & Data Vital Signs (Past 12 Hours) Vital Signs Temp Pulse Pulse Resp BP BP Pulse Ox 05/24/23 12:00 36.7 C 78 18 92/55 L 97 05/24/23 09:26 89 15 96 05/24/23 09:26 86/54 L 05/24/23 08:00 36.6 C 05/24/23 08:00 78 05/24/23 05:00 85 18 05/24/23 04:24 70 19 94 05/24/23 04:24 85/48 L 05/24/23 04:00 36.8 C 05/24/23 04:00 77 20 O2 Del Method 05/24/23 12:00 Room Air 05/24/23 09:26 Room Air 05/24/23 09:26 05/24/23 08:00 05/24/23 08:00 05/24/23 05:00 05/24/23 04:24 05/24/23 04:24 05/24/23 04:00 05/24/23 04:00 Laboratory Results Short CBC 05/24/23 Range/Units 04:20 WBC 12.70 H (4.8-10.8) K/ul Hgb 8.7 L (14.0-18.0) g/dl Hct 26.8 L (42.0-52.0) % Plt Count 326 (130-400) K/uL BMP 05/24/23 04:20 Sodium 132 L Potassium 4.1 Chloride 103 Carbon Dioxide 25 BUN 12 Creatinine 0.84 Glucose 83 Calcium 8.0 L Medications Administered Current Inpatient Medications Acetaminophen (Acetaminophen 325 Mg Tab) 650 mg PO Q4H PRN PRN Reason: pain (1-4) /fever Stop: 06/08/23 15:32 Last Admin: 05/17/23 03:25 Dose: 650 mg Bictegravir/Emtricitabine/Tenofovir (Biktarvy) 1 each PO DAILY JANES; Protocol Stop: 06/09/23 08:59 Last Admin: 05/24/23 08:43 Dose: 1 each Cholestyramine Resin (Cholestyramine Light 4 Gm Pkt) 4 gm PO BID@1000,2200 JANES Stop: 06/20/23 17:34 Last Admin: 05/24/23 09:37 Dose: 4 gm Dicyclomine HCl (Dicyclomine Hcl 10 Mg Cap) 10 mg PO TID PRN PRN Reason: Diarrhea Stop: 06/15/23 09:40 Last Admin: 05/24/23 12:16 Dose: 10 mg Guaifenesin/Dextromethorphan (Guaifenesin/Dextrom Syrup 200mg/20mg 10ml Udc) 10 ml PO Q6H JANES Stop: 06/20/23 17:59 Last Admin: 05/24/23 12:16 Dose: 10 ml Folic Acid 1 mg/ Syringe 10 mls @ 5 mls/min IV DAILY@0900 JANES Stop: 06/20/23 08:59 Last Admin: 05/24/23 08:49 Dose: 5 mls/min Loperamide HCl (Loperamide Hcl 2 Mg Cap) 2 mg PO QID JANES Stop: 06/18/23 20:59 Last Admin: 05/24/23 12:16 Dose: 2 mg Menthol (Cough Drop (Sugar Free) Tunde 24 Tunde/1 Box) 1 tunde BUCCAL UD PRN PRN Reason: Sore Throat Stop: 06/09/23 10:20 Last Admin: 05/18/23 23:38 Dose: 1 tunde Promethazine HCl (Promethazine Hcl 12.5 Mg/10 Ml Udp) 12.5 mg PO Q6H PRN PRN Reason: Cough Stop: 06/10/23 13:03 Last Admin: 05/19/23 23:20 Dose: 12.5 mg Trimethoprim/Sulfamethoxazole (Sulfamethoxazole/Trimethoprim Ds 800/160mg Tab) 1 tab PO DAILY JANES Stop: 06/17/23 08:59 Last Admin: 05/24/23 08:44 Dose: 1 tab Umeclidinium [place] (Umeclidinium [place] 62.5mcg/Blister 7 Puffs/Inhaler) 1 puffs INH DAILY JANES Stop: 06/14/23 16:14 Last Admin: 05/24/23 08:42 Dose: 1 puffs
[2023-05-24] MEDS: COUGH DROP (SUGAR FREE) LOZ 24 LOZ/1 BOX BUCCAL PRN (16:10)
[2023-05-24 17:32] LABS: CMV DNA Qnt Real Time PCR Not Detected; CMV DNA Quant PCR Not Detected log IU/mL
--- NOTE | 2023-05-24 18:17 | Hospitalist Progress Note ---
Date of Service May 24, 2023 Assessment & Plan (1) Cough: Plan: Pt is a 42 yo male with a h/o HIV, PJP and MAC PNA, here with cough x 1 month along with diarrhea, no hypoxia AFB smears negative, AFB cultures of the sputum now + in 4/4 samples, AFB blood cx pending. TB vs MAC with sensitivities pending on AFB sputum cxs-send out to [facility] cryptococcal antigen and histoplasmosis antigen pending disseminated MAC is a concern given constellation of symptoms as per ID recommendations PJP essentially ruled out with negative Fungitell, normal LDH, and consistently taking Bactrim prophylaxis Respiratory bio fire negative Quantferon gold negative but could be false negative in the setting of low CD4 count Sputum cultures-heavy normal rosa CXR showed "right lung with apparent pleural thickening" History of collapsed lung and intubation in 2021 with 4 month long hospital stay and multiple chest tubes, previous pleurodesis CTA chest revealed no pulmonary emboli, but identified bronchiectasis with chronic interstitial lung disease MRSA Screen negative; vancomycin discontinued Completed cefepime x7-day course for empiric treatment of bacterial PNA Pulmonary said bronchoscopy deferred at this time, chest imaging findings could be from previous infections/scarring. Now with AFB sputum positive, await final ID and sensitivities and will likely need MAC vs TB therapy Continue TB precautions as per infection control recommendations Continue guaifenesin w/ DM scheduled F/u crypto and histo studies F/u AFB blood cx F/u Legionella urine ag Appreciate ID recommendations-most likely will need treatment for dissemanted MAC -Given previous vision loss possibly due to ?optic neuritis from ethambutol, need more info--> discussed with Ophtho who said would need visit in the office for thorough eye exam. In meantime, will request records from 2021 when pt saw Ophthalmology at both [facility] and also at Optometry in [place] on [facility] (possibly [facility] ) -His previous eye issues will determine if he can take ethambutol again vs alternative more complex regimens (2) Anemia: Plan: microcytic anemia, acute on chronic iron deficiency anemia,he reports being told he was anemic even a year ago and thinks it is related to his HIV medication Clinically, patient denies melena and blood in stool/urine, No signs of active bleeding Fecal occult stool positive but could be from iron pills Folate low at 4.3-continue IV folate as he is not absorbing much with gut wall edema Continue Protonix 40 mg p.o. bid in case of GI bleeding-GI defers EGD and colonoscopy at this time due to Pulmonary issues B12 is normal, iron deficiency is severe -replaced with IV Venofer total of 1600mg this admission Haptoglobin is high, LDH and TBili normal-no hemolysis hemoglobin electrophoresis is normal but does not rule out alpha thalassemia Celiac TTG negative Appreciate hematology consultation GI recommends EGD and colonoscopy when patient is more stable- would need biopsies for CMV Follow CBC-hemoglobin improving at 8.7 with ongoing likely reactive leukocytosis which is also now improving (3) Diarrhea: Plan: Ongoing for over a month with weight loss Could be related to HIV, CMV, or disseminated MAC given +AFB in sputum Giardia negative, stool PCR negative to include Cryptosporidium Stool O&P pending CMV serum titer negative HIDA scan negative, MRCP with dilated CBD but no choledocholithiasis. LFTs normal Needs colonoscopy but GI deferring for now until acute pulmonary issues resolve Celiac panel negative If AFB blood cxs positive, would confirm disseminated MAC. Likely to start MAC treatment in next 1-2 weeks COntinue cholestyramine in addition to Imodium and make bentyl scheduled bid--> diarrhea finally slowing down (4) HIV (human immunodeficiency virus infection): Plan: Dx in 2013, treatment with [facility] [place] [facility] [place] for HIV care On bactrim ds once daily for prophylaxis CD4 count 69 Continue Biktarvy ID consult here appreciated (5) Hypotension: Plan: Could be hypovolemia from diarrhea. Patient reports he chronically has lower blood pressures when he is laying down at rest but they improve when he sits up. His severe anemia is also likely contributing. His ACTH stim test was essentially normal and his a.m. cortisol level was normal-he does not have adrenal insufficiency Asymptomatic (6) Vision loss of left eye: Plan: Noted OS vision loss in 2021 and pt self discontinued ethambutol at that time as he knew it could cause vision problems He was seen he thinks multiple times by Ophthalmology in the hospital at [facility] as well as by an outpatient [employer] in 2021 Records request sent fo [facility] details Discussed case with Dr. Deondre Sun contract specialist Ophtho here--> recommended obtaining records and then possible office visit for thorough eye exam as an outpatient -ID ordered toxoplasmosis titer, CMV, RPR Plan Disposition-continued stay but eventually back to care home after AFB cultures resulted. Will likely need outpatietn [facility] Ophthalmology visit to determine which antibiotics he can use for MAC tx Admission and Anticipated Discharge Date Admission Date: May 09, 2023 Subjective Diarrhea slowed down, only 2 times today and one had solid stool in it. COugh continues. Discussed care with ID and Ophthalmology Physical Exam Constitutional: WD/WN, vitals as above Eyes: + anicteric sclerae Respiratory: normal respiratory effort and + cough Auscultation: + crackles (right middle lung field); no rhonchi and no wheezes Cardiovascular: RRR, no murmur, no edema Gastrointestinal (Abdomen): normal bowel sounds, soft, nontender, no hepatosplenomegaly Psychiatric: A+Ox3, euthymic affect Results & Data Results & Data Vital Signs (Past 12 Hours) Vital Signs Temp Pulse Pulse Resp BP BP Pulse Ox 05/24/23 12:00 36.7 C 78 18 92/55 L 97 05/24/23 09:26 89 15 96 05/24/23 09:26 86/54 L 05/24/23 08:00 36.6 C 05/24/23 08:00 78 O2 Del Method 05/24/23 12:00 Room Air 05/24/23 09:26 Room Air 05/24/23 09:26 05/24/23 08:00 05/24/23 08:00 Laboratory Results CBC, BMP, magnesium, CMV titer reviewed PG Care Time/CCT Total # of Minutes Spent Total Time Spent with Patient: Total time spent is greater than 50% in coordination of care (as documented) at patient's floor/unit and/or counseling patient: Coding Level of Care Code 12361 SUB INP/OBS CARE 2/35MIN Diagnoses Cough R05.9 Anemia D64.9 Diarrhea R19.7 HIV (human immunodeficiency virus infection) B20 Hypotension I95.9 Vision loss of left eye H54.62
[2023-05-24] MEDS: DICYCLOMINE HCL 10 MG CAP PO SCH (20:27)
[2023-05-25] MEDS: guaiFENesin/DEXTROM SYRUP 200MG/20MG 10ML UDC PO SCH ×3 (05:04→16:28)
[2023-05-25 05:21] LABS: Basophils # (auto) 0.06 K/uL (0.00-0.20); Basophils % (auto) 0.5 %; Eosinophils # (auto) 0.41 K/uL (0.00-0.50); Eosinophils % (auto) 3.2 %; Hematocrit (blood only) 29.1 % (42.0-52.0); Hemoglobin 9.1 g/dl (14.0-18.0); Immature Granulocytes # (auto) 0.12 K/uL (0.01-0.20); Immature Granulocytes % (auto) 0.9 %; Lymphocytes # (auto) 1.74 K/uL (1.20-3.40); Lymphocytes % (auto) 13.7 %; Mean Corpuscular Hemoglobin 21.3 pg (25.0-34.0); Mean Corpuscular Hgb Conc 31.3 g/dL (32.0-36.0); Monocytes # (auto) 0.76 K/uL (0.11-0.59); Neutrophils # (auto) 9.57 K/uL (1.40-6.50); Neutrophils % (auto) 75.7 %; RDW Coefficient of Variation 22.7 % (11.5-14.5); RDW Standard Deviation 53.4 fL (36.4-46.3); Red Blood Count 4.28 M/uL (4.70-6.10); White Blood Count 12.66 K/ul (4.8-10.8)
[2023-05-25 05:33] LABS: BUN Creatinine Ratio 14.9 (10-20); Calcium 8.4 mg/dl (8.6-10.3); Creatinine Clr Calc Pharmacy 102.5 ml/min; Est GFR (African American) 125.1 ml/min; Magnesium 1.5 mg/dl (1.7-2.4); Potassium 4.2 mmol/L (3.5-5.1)
[2023-05-25 05:47] LABS: Mean Platelet Volume 9.4 fL (9.4-12.4); Platelet Count 335 K/uL (130-400)
[2023-05-25 05:48] LABS: Anisocytosis Present; Hypochromasia Present; Microcytosis Present; Polychromasia 2+; Tear Drop Cells 1+
[2023-05-25] MEDS: MAGNESIUM SULFATE / D5W 1 GM/100 ML BAG IV SCH ×3 (07:51→11:23)
[2023-05-25] MEDS: UMECLIDINIUM BROMIDE 62.5MCG/BLISTER 7 PUFFS/INHALER INH SCH (09:06)
[2023-05-25] MEDS: BIKTARVY PO SCH (09:07)
[2023-05-25] MEDS: DICYCLOMINE HCL 10 MG CAP PO SCH ×2 (09:08→22:07)
[2023-05-25] MEDS: SULFAMETHOXAZOLE/TRIMETHOPRIM DS 800/160MG TAB PO SCH (09:08)
[2023-05-25] MEDS: LOPERAMIDE HCL 2 MG CAP PO SCH ×4 (09:09→22:07)
[2023-05-25] MEDS: FOLIC ACID 1 MG in SYRINGE 9.8 ML IV SCH (09:10)
[2023-05-25] MEDS: CHOLESTYRAMINE LIGHT 4 GM PKT PO SCH ×2 (09:53→22:06)
--- NOTE | 2023-05-25 11:08 | Hospitalist Progress Note ---
Date of Service May 25, 2023 Assessment & Plan (1) Cough: Plan: Pt is a 42 yo male with a h/o HIV, PJP and MAC PNA, here with cough x 1 month along with diarrhea, no hypoxia CXR showed "right lung with apparent pleural thickening" History of collapsed lung and intubation in 2021 with 4 month long hospital stay and multiple chest tubes, previous pleurodesis CTA chest revealed no pulmonary emboli, but identified bronchiectasis with chronic interstitial lung disease AFB smears negative, AFB cultures of the sputum now + in 4/4 samples, AFB blood cx pending. TB vs MAC with sensitivities pending on AFB sputum cxs-send out to [facility] pending cryptococcal antigen and histoplasmosis antigen pending disseminated MAC is a concern given constellation of symptoms as per ID recommendations PJP essentially ruled out with negative Fungitell, normal LDH, and consistently taking Bactrim prophylaxis Respiratory bio fire negative Quantferon gold negative but could be false negative in the setting of low CD4 count Sputum cultures-heavy normal rosa but completed 7 days of Cefepime MRSA Screen negative; vancomycin discontinued Pulmonary said bronchoscopy deferred at this time, chest imaging findings could be from previous infections/scarring. Now with AFB sputum positive, await final ID and sensitivities and will likely need MAC vs TB therapy Continue TB precautions as per infection control recommendations until ruled out Continue guaifenesin w/ DM scheduled F/u crypto and histo studies F/u AFB blood cx F/u Legionella urine ag Appreciate ID recommendations-most likely will need treatment for disseminated MAC Given previous vision loss OS possibly due to ?optic neuritis from ethambutol, need more info--> discussed with Ophtho who said would need visit in the office for thorough eye exam. In meantime, will request records from 2021 when pt saw Ophthalmology at both [facility] and also at Optometry in [place] on [facility] (possibly [facility] ) -His previous eye issues will determine if he can take ethambutol again vs alternative more complex regimens -if cannot determine cause of vision loss based on previous records, will need outpt Ophtho appt arranged with Dr. Deondre Sun who is aware of this case (2) Anemia: Plan: microcytic anemia, acute on chronic iron deficiency anemia,he reports being told he was anemic even a year ago -possibly related to his HIV medication No melena and blood in stool/urine, No signs of active bleeding Fecal occult stool positive but could be from iron pills Folate low at 4.3-continue IV folate as he is not absorbing much with gut wall edema B12 is normal, iron deficiency is severe -replaced with IV Venofer total of 1600mg this admission Haptoglobin is high, LDH and TBili normal-no hemolysis hemoglobin electrophoresis is normal but does not rule out alpha thalassemia Celiac TTG negative Appreciate hematology consultation GI recommends EGD and colonoscopy when patient is more stable- would need biopsies for CMV Follow CBC-hemoglobin improving at 9.1 with ongoing likely reactive leukocytosis which is also now improving Continue Protonix 40 mg p.o. bid in case of GI bleeding (3) Diarrhea: Plan: Ongoing for over a month with weight loss--> Could be related to HIV, CMV, or disseminated MAC given +AFB in sputum Giardia negative, stool PCR negative to include Cryptosporidium Stool O&P pending CMV serum titer negative HIDA scan negative, MRCP with dilated CBD but no choledocholithiasis. LFTs normal Needs colonoscopy but GI deferring for now until acute pulmonary issues resolve Celiac panel negative If AFB blood cxs positive, would confirm disseminated MAC. Likely to start MAC treatment in next 1-2 weeks Much improved with Imodium and Bentyl. Also started cholestyramine but with concerns over absorption of meds, may need to discontinue this? Continue cholestyramine for now in addition to Imodium and scheduled bentyl bid Replace magnesium due to GI losses (4) HIV (human immunodeficiency virus infection): Plan: Dx in 2013, treatment with [facility] On bactrim ds once daily for prophylaxis CD4 count 69 Continue Biktarvy ID consult here appreciated-may need to change regimen based on which antibiotics are needed for MAC due to interactions He will certainly need close ID follow up after discharge (5) Hypotension: Plan: Chronic and asymptomatic Patient reports he chronically has lower blood pressures when he is laying down at rest but they improve when he sits up. Could be hypovolemia from diarrhea. His severe anemia is also likely contributing. His ACTH stim test was essentially normal and his a.m. cortisol level was normal-he does not have adrenal insufficiency (6) Vision loss of left eye: Plan: Noted OS vision loss in 2021 and pt self discontinued ethambutol at that time as he knew it could cause vision problems He was seen he thinks multiple times by Ophthalmology in the hospital at [facility] as well as by an outpatient Document Reviewer in 2021 Records request sent for more details Discussed case with Dr. Deondre Sun simulation technician Ophtho here--> recommended obtaining records and then possible office visit for thorough eye exam as an outpatient -ID ordered toxoplasmosis titer, CMV, RPR--> RPR and CMV negative, toxo pending Plan DVT proph-safe to start Lovenox due to prolonged immobility, acute illness, and stable hgb without evidence of bleeding Disposition-continued stay but [facility] after AFB cultures resulted. Ok to downgrade off tele but should remain on TB precautions Admission and Anticipated Discharge Date Admission Date: May 09, 2023 Subjective Diarrhea significantly improved. Had only 2 BMs yesterday and 1 watery stool today. Still mild dry cough, no other acute issues tele with NSR Physical Exam Constitutional: WD/WN, vitals as above Eyes: + anicteric sclerae Respiratory: normal respiratory effort and + cough Auscultation: lungs clear to auscultation bilaterally Cardiovascular: RRR, no murmur, no edema Gastrointestinal (Abdomen): normal bowel sounds, soft, nontender, no hepatosplenomegaly Psychiatric: A+Ox3, euthymic affect Results & Data Results & Data Vital Signs (Past 12 Hours) Vital Signs Temp Pulse Pulse Resp BP BP Pulse Ox 05/25/23 08:00 36.5 C 05/25/23 07:19 82 14 95/59 L 99 05/25/23 07:00 05/25/23 06:00 80 18 93/54 L 05/25/23 05:07 36.6 C 61 19 89/57 L 98 05/25/23 00:10 78 O2 Del Method 05/25/23 08:00 05/25/23 07:19 Room Air 05/25/23 07:00 Room Air 05/25/23 06:00 05/25/23 05:07 Room Air 05/25/23 00:10 Laboratory Results CBC, BMP, magnesium reviewed PG Care Time/CCT Total # of Minutes Spent Total Time Spent with Patient: Total time spent is greater than 50% in coordination of care (as documented) at patient's floor/unit and/or counseling patient: Coding Level of Care Code 23559 SUB INP/OBS CARE 235MIN Diagnoses Cough R05.9 Anemia D64.9 Diarrhea R19.7 HIV (human immunodeficiency virus infection) B20 Hypotension I95.9 Vision loss of left eye H54.62
[2023-05-25] MEDS: ENOXAPARIN INJ 40 MG/0.4 ML SYR SQ SCH ×2 (13:28→13:31)
--- NOTE | 2023-05-25 16:41 | Infectious Disease Progress Nt ---
Date of Service May 25, 2023 Assessment & Plan (1) Diarrhea: (2) HIV (human immunodeficiency virus infection): (3) Hypotension: (4) Cough: Plan Micro: 05/24 Toxoplasma serologies: pending 05/24 RPR: nonreactive 05/23 Urine legionella Ag: not detected 05/21 Urine histo Ag: pending 05/21 Serum Aspergillus Ag: pending 05/21 Serum CMV PCR: not detected 05/21 Stool O&P: pending 05/21 Serum CrAg: pending 05/17 AFB blood culture: pending 05/16 Sputum AFB smear neg, cx +AFB, pending ID 05/16 Sputum AFB smear neg, cx +AFB, pending ID 05/15 Sputum AFB smear neg, cx +AFB, pending ID 05/15 Sputum cx: heavy normal rosa 05/15 Sputum cx: heavy normal rosa 05/15 Sputum AFB smear neg, cx +AFB, pending ID 05/12 Stool Giardia Ag: neg 05/11 Quant gold: neg 05/10 Sputum cx: mod normal rosa 05/10 Sputum PJP PCR: neg 05/10 C diff neg 05/10 Stool PCR panel: neg 05/09 BDG < 31 05/09 RVP neg 05/09 BCx x2: NG Abx: Cefepime 05/09-05/11, 05/16 - 05/22 Azithro 05/11 - 05/16 Vanc 05/09 HIV meds: Biktarvy TMP/SMX 1 DS tab daily Problems: #HIV/AIDS: CD4 69, VL UD. Reportedly adherent to Biktarvy, Bactrim ppx #Pneumonia, consolidation and GGO #Hypotension #weight loss #Fever: on 05/17 #Anemia #Currently Incarcerated #Persistent Leukocytosis #History of PJP (2019) #History of MAC (2021): pt reports he stopped ethambutol due to vision changes, and did not complete 1 year of therapy 42 yo incarcerated M with HIV (CD4 69/5%, VL UD in 04/2023, adherent to Biktarvy and Bactrim ppx), vitamin D deficiency, FREDIS, PJP pneumonia (2019), prior diagnosis of MAC who presented on 05/09 due to hypotension to 80s/50s, worsening cough, diarrhea, weight loss, admitted with c/f disseminated MAC. Pt has had watery non-bloody diarrhea x 3-4 weeks, dry cough ongoing x 1.5 months but worsening, mild SOB on exertion over the past few weeks. Denied fevers, chills, night sweats, hemoptysis. Reported unintentional weight loss (166 --> 146 lbs over 3.5 months). On presentation, pt was afebrile, BP 90/61, SpO2 100% on room air. Labs showed WBC 11.88, Hb 7.3, procalcitonin 1, lactate 1.1. UA negative. MRSA nares negative. RVP negative. LDH 146. CTA chest showed no PE, bronchiectasis with chronic interstitial lung disease and biapical blebs and bulla formation, patchy and irregular areas of consolidation most pronounced within the right middle lobe and lingula with upper lung zone predominant groundglass densities may also be related to the chronic lung disease however superimposed infectious or inflammatory pneumonitis could appear similarly. CT A/P with IV contrast showed nonspecific wall thickening of multiple jejunal loops, may be related to underdistention or other etiologies such as hypoalbuminemia, nonspecific enteritis given mesenteric stranding could appear similarly, a few mildly enlarged mesenteric lymph nodes, likely benign. Patient was started on empiric cefepime and azithromycin for possible bacterial pneumonia, completed empiric 7 day course of cefepime on 05/22. He spiked a fever to 38.1 on 05/17, and has been afebrile since. Remains with mild leukocytosis. Continues with soft BPs. For his pulmonary findings, pt underwent TB evaluation, with 3 negative sputum AFB smears, quantiferon gold negative. AFB cultures currently growing AFB, awaiting identification. Most likely indicative of MAC, given pt report of history of MAC in the last year for which he did not complete treatment, and stopped ethambutol prematurely due to some L eye vision changes. Pt reports that he did not tell anyone about his visual changes, and stopped the ethambutol on his own. Raises concern that he was on azithro alone, leading to resistance. With positive AFB, could also consider TB, given history of incarceration, but no history of travel outside the country, hemoptysis, night sweats. BDG is negative, and sputum PJP PCR is negative. Therefore, PJP pneumonia is unlikely, especially as patient has reportedly been adherent to prophylactic Bactrim. RVP negative. Sputum culture growing normal rosa. Also consider Crypto, Histo. Pulm was consulted--recommended deferring bronchoscopy at this time until hypotension and severe anemia resolved/improved, wanted to review outside imaging as his CT findings could be fibrotic changes related to history of PJP, intubation, and pneumothorax. Pulm signed off. For his diarrhea, C diff, stool PCR panel, and stool Giardia Ag are negative. Would consider disseminated MAC as a cause of diarrhea. Also consider other infectious etiologies such as microsporidium, isospora, CMV. Consider lymphoma, Kaposi's sarcoma. His hypotension may be reflective of failure to thrive, adrenal insufficiency, fungal infections, MTB or disseminated ROSA/MAC potentially. Most concerned for disseminated MAC at this time, which could explain his constellation of pulmonary symptoms, diarrhea, weight loss, anemia. CT did show mild hepatosplenomegaly, apparent wall thickening of multiple jejunal loops, several mildly enlarged mesenteric lymph nodes--seems nonspecific, but could be seen in disseminated MAC. Review of a scanned note from 01/22/23 indicates a prior history of disseminated MAC in 11/2021, and history of CMV infection. While incarcerated, he has seen LINUS Weaver at [facility] twice via telemedicine for his HIV care. Previously saw a Dr. Escamilla (?) of infectious disease in [facility]. Recommended ophthalmology consult to evaluate for cause of L eye visual changes. Could be related to ethambutol (optic neuritis), vs CMV retinitis, toxo, etc. Unfortunately, ophthalmology feels that a bedside exam will not be sufficient for diagnosis, and that pt will need to present to clinic. Primary team attempting to get records from prior eye exams. Pt reports he saw an turn out worker in 2021 while he was hospitalized at [facility], but did not have visual symptoms at that time. He also subsequently saw an commission auditor, but did not tell them about his visual symptoms. Recommendations: -If ophthalmology is unable to evaluate the patient, recommend prompt outpatient evaluation for whether pt's visual complaints can be explained by ethambutol (optic neuritis), or whether the visual changes can be explained by CMV retinitis, toxoplasma, etc. Anticipate that pt will need to be treated for disse minated MAC, for which ethambutol is a critically important medication--otherwise, pt will require alternative therapies which have associated toxicities, difficult administration (IV), very difficult to access (clofazimine) -Follow-up AFB identification (sample sent to [place] for identification reportedly [email or web address], new sample sent on 05/24) -Follow-up mycobacterial blood culture (sent 05/17), stool O&P, urine histo Ag, serum Crypto Ag, galactomannan, toxo serologies -Continue Biktarvy daily for now -Continue Bactrim prophylaxis as active PJP is less likely as per above -If the AFB is identified as MAC, then will need to start therapy for disseminated MAC. Standard therapy is azithromycin plus ethambutol--however, unclear whether he will be able to take ethambutol, as pt reports he had visual changes on ethambutol. He is highly concerned about medication side effects. His report of stopping ethambutol on his own raises concern that the MAC could have developed resistance on a 1-drug (likely macrolide?) regimen. Will be important to obtain sensitivities if his cultures end up growing MAC. If ethambutol cannot be used, pt will need 3 drug therapy. This is because azithro plus rifamycin eliud ne has higher chance of leading to resistance. Regimen would likely be: 1) azithromycin (hopefully not resistant), 2) rifabutin, 3) IV amikacin three times a week or clofazimine PO. Clofazimine will be extremely difficult to access--requires request for IND, and company is likely hesitant to allow its use in HIV patients based on a prior study showing increased mortality. [facility] reports they are able to administer IV antibiotics at their fpc. IV amikacin would be difficult to tolerate terminal operations supervisor, but can at least try to get 8 weeks minimum, before switching to an alternate medication. He would need minimum 12 months of MAC therapy, however pt would need CD4 count > 100 for at least 6 months before discontinuation of MAC treatment. -If IV amikacin is initiated, will appreciate pharmacy assistance with dosing. Likely ~650 mg three times a week, with target peak ~30-40, with undetectable troughs. Would ideally remain inpatient until a stable amikacin dosing is obtained, prior to discharge. -If pt requires rifabutin, note that this has drug-drug interactions with Biktarvy. Biktarvy would have to be switched to dolutegravir plus Truvada. -Will hold off on initiating empiric MAC treatment for now, until there is confirmation that the AFB is not TB (otherwise, single drug rifabutin in treatment of TB could lead to resistance) Discussed with Dr. Le. Will continue to follow. Please note that there will be no ID notes over the weekend. If questions or concerns arise, please contact the Infectious Disease Call Center and ask to speak with the covering ID physician. Dr. Aisha Elmore will take over on Sunday. Admission and Anticipated Discharge Date Admission Date: May 09, 2023 Subjective Subsequent visit was provided via telemedicine using two-way real-time interactive telecommunication between the patient and the telemedicine provider. For the duration of the visit, the provider was performing the assessment from a different facility than the patient. This includesuse of bluetooth stethoscope forauscultationperformed by the telepresenter that the telemedicine provider can hear if described in the physical exam. Environmental Attorney contact information: Please call [facility] Call Center . (Phone Number For Physician Use Only) After establishing a telemedicine visit, patient was: Patient was verified with two unique identifiers, Patient/authorized rep acknowledged consent and understanding and Gave permission to continue telehealth session Time Spent with Patient: Subsequent => 25 min Pt denies complaints Review of System A complete ROS was performed and is negative except as mentioned in the HPI. Physical Exam Physical Exam: GEN: Well-appearing, in NAD. RESP: No increased work of breathing NEURO: Alert and oriented. Answers all questions appropriately. Speech not slurred. PSYCH: Normal mood, affect appropriate. Results & Data Vital Signs (Past 12 Hours) Vital Signs Temp Pulse Pulse Resp BP BP Pulse Ox 05/25/23 11:25 05/25/23 11:24 82 05/25/23 08:00 36.5 C 05/25/23 07:19 82 14 95/59 L 99 05/25/23 07:00 05/25/23 06:00 80 18 93/54 L 05/25/23 05:07 36.6 C 61 19 89/57 L 98 O2 Del Method 05/25/23 11:25 Room Air 05/25/23 11:24 05/25/23 08:00 05/25/23 07:19 Room Air 05/25/23 07:00 Room Air 05/25/23 06:00 05/25/23 05:07 Room Air Laboratory Results Short CBC 05/25/23 Range/Units 04:40 WBC 12.66 H (4.8-10.8) K/ul Hgb 9.1 L (14.0-18.0) g/dl Hct 29.1 L (42.0-52.0) % Plt Count 335 (130-400) K/uL BMP 05/25/23 04:40 Sodium 132 L Potassium 4.2 Chloride 102 Carbon Dioxide 26 BUN 13 Creatinine 0.87 Glucose 78 Calcium 8.4 L Medications Administered Current Inpatient Medications Acetaminophen (Acetaminophen 325 Mg Tab) 650 mg PO Q4H PRN PRN Reason: pain (1-4) /fever Stop: 06/08/23 15:32 Last Admin: 05/17/23 03:25 Dose: 650 mg Bictegravir/Emtricitabine/Tenofovir (Biktarvy) 1 each PO DAILY JANES; Protocol Stop: 06/09/23 08:59 Last Admin: 05/25/23 09:07 Dose: 1 each Cholestyramine Resin (Cholestyramine Light 4 Gm Pkt) 4 gm PO BID@1000,2200 [facility] Stop: 06/20/23 17:34 Last Admin: 05/25/23 09:53 Dose: 4 gm Dicyclomine HCl (Dicyclomine Hcl 10 Mg Cap) 10 mg PO BID JANES Stop: 06/23/23 20:59 Last Admin: 05/25/23 09:08 Dose: 10 mg Enoxaparin Sodium (Enoxaparin Inj 40 Mg/0.4 Ml Syr) 40 mg SQ Q24H JANES Stop: 06/24/23 11:59 Last Admin: 05/25/23 13:31 Dose: Not Given Guaifenesin/Dextromethorphan (Guaifenesin/Dextrom Syrup 200mg/20mg 10ml Udc) 10 ml PO Q6H [facility] Stop: 06/20/23 17:59 Last Admin: 05/25/23 16:28 Dose: 10 ml Folic Acid 1 mg/ Syringe 10 mls @ 5 mls/min IV DAILY@0900 [facility] Stop: 06/20/23 08:59 Last Admin: 05/25/23 09:10 Dose: 5 mls/min Loperamide HCl (Loperamide Hcl 2 Mg Cap) 2 mg PO QID JANES Stop: 06/18/23 20:59 Last Admin: 05/25/23 16:28 Dose: 2 mg Menthol (Cough Drop (Sugar Free) Tunde 24 Tunde/1 Box) 1 tunde BUCCAL UD PRN PRN Reason: Sore Throat Stop: 06/09/23 10:20 Last Admin: 05/24/23 16:10 Dose: 1 tunde Promethazine HCl (Promethazine Hcl 12.5 Mg/10 Ml Udp) 12.5 mg PO Q6H PRN PRN Reason: Cough Stop: 06/10/23 13:03 Last Admin: 05/19/23 23:20 Dose: 12.5 mg Trimethoprim/Sulfamethoxazole (Sulfamethoxazole/Trimethoprim Ds 800/160mg Tab) 1 tab PO DAILY JANES Stop: 06/17/23 08:59 Last Admin: 05/25/23 09:08 Dose: 1 tab Umeclidinium Imperial (Umeclidinium Imperial 62.5mcg/Blister 7 Puffs/Inhaler) 1 puffs INH DAILY JANES Stop: 06/14/23 16:14 Last Admin: 05/25/23 09:06 Dose: 1 puffs Vitamin D (Cholecalciferol 1,000 Units 25 Mcg Tab) 1,000 units PO DAILY JANES Stop: 06/25/23 08:59
[2023-05-26] MEDS: COUGH DROP (SUGAR FREE) LOZ 24 LOZ/1 BOX BUCCAL PRN (00:32)
[2023-05-26] MEDS: guaiFENesin/DEXTROM SYRUP 200MG/20MG 10ML UDC PO SCH ×4 (00:32→17:19)
[2023-05-26 06:11] LABS: Basophils # (auto) 0.08 K/uL (0.00-0.20); Basophils % (auto) 0.6 %; Eosinophils # (auto) 0.38 K/uL (0.00-0.50); Hematocrit (blood only) 29.1 % (42.0-52.0); Immature Granulocytes # (auto) 0.09 K/uL (0.01-0.20); Immature Granulocytes % (auto) 0.7 %; Lymphocytes # (auto) 1.84 K/uL (1.20-3.40); Lymphocytes % (auto) 14.5 %; Mean Corpuscular Hemoglobin 21.1 pg (25.0-34.0); Mean Corpuscular Hgb Conc 30.9 g/dL (32.0-36.0); Mean Corpuscular Volume 68.3 fL (80.0-100.0); Monocytes # (auto) 0.71 K/uL (0.11-0.59); Monocytes % (auto) 5.6 %; Neutrophils % (auto) 75.6 %; RDW Standard Deviation 54.3 fL (36.4-46.3); Red Blood Count 4.26 M/uL (4.70-6.10)
[2023-05-26 06:34] LABS: Albumin Globulin Ratio 0.5 (0.9-2); Albumin Level 2.5 gm/dl (3.4-5.0); Bilirubin,Total 0.3 mg/dl (0.2-1.0); Calcium 8.5 mg/dl (8.6-10.3); Creatinine Clr Calc Pharmacy 95.9 ml/min; Est GFR (African American) 118.6 ml/min; Est GFR (Non-African American) 102.3 ml/min; Globulin 4.6 gm/dl (2.5-4.0); Magnesium 1.7 mg/dl (1.7-2.4); Potassium 4.3 mmol/L (3.5-5.1); Total Protein 7.1 gm/dl (6.0-8.3)
[2023-05-26 06:44] LABS: Echinocytes 1+; Microcytosis Present; Ovalocytes 1+; Platelet Count 332 K/uL (130-400); Polychromasia 2+
--- NOTE | 2023-05-26 08:15 | Hospitalist Progress Note ---
Date of Service May 26, 2023 Assessment & Plan (1) Anemia: Plan: Significant improvement in his hemoglobin and no longer appears to be transfusion dependent. Whether this is a response to treatment of his underlying infections and/or to the iron supplementation, it is certainly a welcome finding. Concerns for GI loss and/or malabsorption have been noted and gastroenterology has suggested outpatient upper and lower endoscopic evaluation. Certainly would continue to focus on optimizing his treatment for his HIV and associated infections, may be worthwhile to reassess iron studies in another week or 2 and consider additional intravenous Venofer if his percent saturation remains low and ferritin remains less than the 3-400 range. Hematology will sign off for the remainder of this admission unless a specific additional question arises. Would suggest coordinated outpatient work-up with gastroenterology as above. If there are ongoing questions with regards to his iron status and/or a perceived need for additional intravenous iron, please ask his facility to arrange for an outpatient follow-up referral to hematology for further review Admission and Anticipated Discharge Date Admission Date: May 09, 2023 Subjective Status quo Results & Data Results & Data Vital Signs (Past 12 Hours) Vital Signs Temp Pulse Resp BP BP Pulse Ox O2 Del Method 05/26/23 07:17 36.9 C 80 16 96/61 L 94 Room Air 05/26/23 05:38 37 C 85 18 100/63 96 Room Air 05/25/23 21:44 36.8 C 81 16 98/62 L 93 Room Air PG Care Time/CCT Total # of Minutes Spent Total Time Spent with Patient: Total time spent is greater than 50% in coordination of care (as documented) at patient's floor/unit and/or counseling patient: Coding Level of Care Code None Diagnoses Anemia D64.9
--- NOTE | 2023-05-26 08:46 | Hospitalist Progress Note ---
Date of Service May 26, 2023 Assessment & Plan (1) Cough: Plan: Pt is a 42 yo male with a h/o HIV, PJP and MAC PNA, here with cough x 1 month along with diarrhea, no hypoxia CXR showed "right lung with apparent pleural thickening" History of collapsed lung and intubation in 2021 with 4 month long hospital stay and multiple chest tubes, previous pleurodesis CTA chest revealed no pulmonary emboli, but identified bronchiectasis with chronic interstitial lung disease AFB smears negative, AFB cultures of the sputum now + in 4/4 samples, AFB blood cx pending. TB vs MAC with sensitivities pending on AFB sputum cxs-send out to [facility] pending cryptococcal antigen and histoplasmosis antigen pending disseminated MAC is a concern given constellation of symptoms as per ID recommendations PJP essentially ruled out with negative Fungitell, normal LDH, and consistently taking Bactrim prophylaxis Respiratory bio fire negative Quantferon gold negative but could be false negative in the setting of low CD4 count Sputum cultures-heavy normal rosa but completed 7 days of Cefepime MRSA Screen negative; vancomycin discontinued Legionella urine ag negative Pulmonary said bronchoscopy deferred at this time, chest imaging findings could be from previous infections/scarring. Now with AFB sputum positive, await final ID and sensitivities and will likely need MAC vs TB therapy Continue TB precautions as per infection control recommendations until ruled out Continue guaifenesin w/ DM scheduled F/u crypto and histo studies F/u AFB blood cx Appreciate ID recommendations-most likely will need treatment for disseminated MAC Given previous vision loss OS possibly due to ?optic neuritis from ethambutol, need more info--> discussed with Ophtho who said would need visit in the office for thorough eye exam. In meantime, will request records from 2021 when pt saw Ophthalmology at both [facility] and also at Optometry in [place], [place] on [facility][Note 3] (possibly [facility] ) -His previous eye issues will determine if he can take ethambutol again vs alternative more complex regimens -if cannot determine cause of vision loss based on previous records, will need outpt Ophtho appt arranged with Dr. Deondre Sun who is aware of this case (2) Anemia: Plan: microcytic anemia, acute on chronic iron deficiency anemia,he reports being told he was anemic even a year ago -possibly related to his HIV medication No melena and blood in stool/urine, No signs of active bleeding Fecal occult stool positive but could be from iron pills improving after robust iron load Folate low at 4.3-continue IV folate as he is not absorbing much with gut wall edema B12 is normal, iron deficiency is severe -replaced with IV Venofer total of 1600mg this admission Haptoglobin is high, LDH and TBili normal-no hemolysis hemoglobin electrophoresis is normal but does not rule out alpha thalassemia Celiac TTG negative Appreciate hematology consultation GI recommends EGD and colonoscopy when patient is more stable- would need biopsies for CMV Follow CBC-hemoglobin improving at 9 gm range with ongoing likely reactive leukocytosis which is also now improving Continue Protonix 40 mg p.o. bid in case of GI bleeding (3) Diarrhea: Plan: Ongoing for over a month with weight loss--> Could be related to HIV, CMV, or disseminated MAC given +AFB in sputum Giardia negative, stool PCR negative to include Cryptosporidium Stool O&P pending CMV serum titer negative HIDA scan negative, MRCP with dilated CBD but no choledocholithiasis. LFTs normal Needs colonoscopy but GI deferring for now until acute pulmonary issues resolve Celiac panel negative If AFB blood cxs positive, would confirm disseminated MAC. Likely to start MAC treatment in next 1-2 weeks continues to be improved with Imodium and Bentyl. Continue cholestyramine for now in addition to Imodium and scheduled bentyl bid Replace magnesium due to GI losses (4) HIV (human immunodeficiency virus infection): Plan: Dx in 2013, treatment with [facility] at [facility] Rose Mccray at [facility] for HIV care On bactrim ds once daily for prophylaxis CD4 count 69 Continue Biktarvy ID consult here appreciated-may need to change regimen based on which antibiotics are needed for MAC due to interactions He will certainly need close ID follow up after discharge (5) Hypotension: Plan: Chronic and asymptomatic Patient reports he chronically has lower blood pressures when he is laying down at rest but they improve when he sits up. Could be hypovolemia from diarrhea. His severe anemia is also likely contributing. His ACTH stim test was essentially normal and his a.m. cortisol level was normal-he does not have adrenal insufficiency (6) Vision loss of left eye: Plan: Noted OS vision loss in 2021 and pt self discontinued ethambutol at that time as he knew it could cause vision problems He was seen he thinks multiple times by Ophthalmology in the hospital at [facility] as well as by an outpatient Chemistry Account Manager in 2021 Records request sent for more details Discussed case with Dr. Deondre Sun electronic intelligence officer Ophtho here--> recommended obtain ing records and then possible office visit for thorough eye exam as an outpatient -ID ordered toxoplasmosis titer, CMV, RPR--> RPR and CMV negative, toxo pending Plan DVT proph-safe to start Lovenox due to prolonged immobility, acute illness, and stable hgb without evidence of bleeding Disposition-continued stay but eventually back to [facility] after AFB cultures resulted. Ok to downgrade off tele but should remain on TB precautions Admission and Anticipated Discharge Date Admission Date: May 09, 2023 Subjective pt states did cough a bit more in the shower, clear with some blood streaks diarrhea is firming up Physical Exam Physical Exam: cardiac exam is regular, lungs coarse at bases, good air movement Results & Data Results & Data Vital Signs (Past 12 Hours) Vital Signs Temp Pulse Resp BP BP Pulse Ox O2 Del Method 05/26/23 07:17 98.4 F 80 16 96/61 L 94 Room Air 05/26/23 05:38 98.6 F 85 18 100/63 96 Room Air 05/25/23 21:44 98.2 F 81 16 98/62 L 93 Room Air Laboratory Results review cbc review chemistry PG Care Time/CCT Total # of Minutes Spent Total Time Spent with Patient: Total time spent is greater than 50% in coordination of care (as documented) at patient's floor/unit and/or counseling patient: Coding Level of Care Code 22490 SUB INP/OBS CARE 3/50MIN Diagnoses Cough R05.9 Anemia D64.9 Diarrhea R19.7 HIV (human immunodeficiency virus infection) B20 Hypotension I95.9 Vision loss of left eye H54.62
[2023-05-26] MEDS: BIKTARVY PO SCH (09:39)
[2023-05-26] MEDS: CHOLECALCIFEROL 1,000 UNITS 25 MCG TAB PO SCH (09:40)
[2023-05-26] MEDS: DICYCLOMINE HCL 10 MG CAP PO SCH ×2 (09:40→21:14)
[2023-05-26] MEDS: UMECLIDINIUM BROMIDE 62.5MCG/BLISTER 7 PUFFS/INHALER INH SCH (09:41)
[2023-05-26] MEDS: SULFAMETHOXAZOLE/TRIMETHOPRIM DS 800/160MG TAB PO SCH (09:41)
[2023-05-26] MEDS: LOPERAMIDE HCL 2 MG CAP PO SCH ×4 (09:42→21:15)
[2023-05-26] MEDS: FOLIC ACID 1 MG in SYRINGE 9.8 ML IV SCH (09:43)
[2023-05-26] MEDS: CHOLESTYRAMINE LIGHT 4 GM PKT PO SCH ×2 (12:12→21:13)
[2023-05-26] MEDS: ENOXAPARIN INJ 40 MG/0.4 ML SYR SQ SCH (12:13)
[2023-05-26 17:22] LABS: Aspergillus Antigen, Serum Not Detected (Not Detected)
[2023-05-27] MEDS: guaiFENesin/DEXTROM SYRUP 200MG/20MG 10ML UDC PO SCH ×4 (00:27→17:10)
[2023-05-27] MEDS: DICYCLOMINE HCL 10 MG CAP PO SCH ×2 (08:54→20:11)
[2023-05-27] MEDS: BIKTARVY PO SCH (08:54)
[2023-05-27] MEDS: LOPERAMIDE HCL 2 MG CAP PO SCH ×4 (08:55→20:11)
[2023-05-27] MEDS: UMECLIDINIUM BROMIDE 62.5MCG/BLISTER 7 PUFFS/INHALER INH SCH (08:55)
[2023-05-27] MEDS: FOLIC ACID 1 MG in SYRINGE 9.8 ML IV SCH (08:56)
[2023-05-27] MEDS: CHOLECALCIFEROL 1,000 UNITS 25 MCG TAB PO SCH (08:56)
[2023-05-27] MEDS: SULFAMETHOXAZOLE/TRIMETHOPRIM DS 800/160MG TAB PO SCH (08:57)
[2023-05-27] MEDS: CHOLESTYRAMINE LIGHT 4 GM PKT PO SCH ×2 (10:53→22:43)
[2023-05-27] MEDS: ENOXAPARIN INJ 40 MG/0.4 ML SYR SQ SCH (10:54)
--- NOTE | 2023-05-27 13:51 | CT Scan Report ---
SINUS CT CT DOSE: 658.65 mGy.cm HISTORY: recurrent bloody nasal drainage, HIV TECHNIQUE: Multiaxial CT images of the paranasal sinuses were performed and reformatted in the real l plane without the use of contrast. A dose lowering technique was utilized adhering to the principl es of JUAN CARLOS. COMPARISON: None. FINDINGS: The visualized brain parenchyma and orbits are unremarkable. The pterygopalatine fossa are maintained. Mild mucosal thickening within the frontal sinuses and sphenoid sinuses. Moderate mucosal thickening within the ethmoid air cells and maxillary sinuses. No fluid levels within the paranasal sinuses. The mastoid air cells are clear. Partial opacification of the bilateral ostiomeatal units. M ild right nasal septal deviation. No erosive changes identified. The lamina papyracea and orbital julianna ors are intact. The orbits are unremarkable. IMPRESSION: 1. Crtl-lt-oftofiox chronic sinus disease as described above. No fluid levels to suggest acute sinusi tis. 2. No erosive changes or masses identified. ACT 112: Negative or not required by law. Electronically signed by: Paco Pugh M.D. 05/27/2023 1:49 PM
[2023-05-27] MEDS ORDERED: SODIUM CHLORIDE 0.65% NA SOLN 45 ML (OCEAN) PRN (15:27)
--- NOTE | 2023-05-27 15:30 | Hospitalist Progress Note ---
Date of Service May 27, 2023 Assessment & Plan (1) Cough: Plan: Pt is a 42 yo male with a h/o HIV, PJP and MAC PNA, here with cough x 1 month along with diarrhea, no hypoxia CXR showed "right lung with apparent pleural thickening" History of collapsed lung and intubation in 2021 with 4 month long hospital stay and multiple chest tubes, previous pleurodesis CTA chest revealed no pulmonary emboli, but identified bronchiectasis with chronic interstitial lung disease AFB smears negative, AFB cultures of the sputum now + in 4/4 samples, AFB blood cx pending. TB vs MAC with sensitivities pending on AFB sputum cxs-send out to [facility] pending cryptococcal antigen and histoplasmosis antigen pending disseminated MAC is a concern given constellation of symptoms as per ID recommendations PJP essentially ruled out with negative Fungitell, normal LDH, and consistently taking Bactrim prophylaxis Respiratory bio fire negative Quantferon gold negative but could be false negative in the setting of low CD4 count Sputum cultures-heavy normal rosa but completed 7 days of Cefepime MRSA Screen negative; vancomycin discontinued Legionella urine ag negative Pulmonary said bronchoscopy deferred at this time, chest imaging findings could be from previous infections/scarring. Now with AFB sputum positive, await final ID and sensitivities and will likely need MAC vs TB therapy Continue TB precautions as per infection control recommendations until ruled out Continue guaifenesin w/ DM scheduled F/u crypto and histo studies F/u AFB blood cx CT sinuses did not show any acute sinusitis for chronic sinusitis we use saline nasal spray at this time Appreciate ID recommendations-most likely will need treatment for disseminated MAC Given previous vision loss OS possibly due to ?optic neuritis from ethambutol, need more info--> discussed with Ophtho who said would need visit in the office for thorough eye exam. In meantime, will request records from 2021 when pt saw Ophthalmology at both [facility] and also at Optometry in [place], [place] on [facility] (possibly [facility] ) -His previous eye issues will determine if he can take ethambutol again vs alternative more complex regimens -if cannot determine cause of vision loss based on previous records, will need outpt Ophtho appt arranged with Dr. Deondre Sun who is aware of this case (2) Anemia: Plan: microcytic anemia, acute on chronic iron deficiency anemia,he reports being told he was anemic even a year ago -possibly related to his HIV medication No melena and blood in stool/urine, No signs of active bleeding Fecal occult stool positive but could be from iron pills improving after robust iron load Folate low at 4.3-continue IV folate as he is not absorbing much with gut wall edema B12 is normal, iron deficiency is severe -replaced with IV Venofer total of 1600mg this admission Haptoglobin is high, LDH and TBili normal-no hemolysis hemoglobin electrophoresis is normal but does not rule out alpha thalassemia Celiac TTG negative Appreciate hematology consultation GI recommends EGD and colonoscopy when patient is more stable- would need biopsies for CMV Follow CBC-hemoglobin improving at 9 gm range with ongoing likely reactive leukocytosis which is also now improving Continue Protonix 40 mg p.o. bid in case of GI bleeding (3) Diarrhea: Plan: Ongoing for over a month with weight loss--> Could be related to HIV, CMV, or disseminated MAC given +AFB in sputum Giardia negative, stool PCR negative to include Cryptosporidium Stool O&P pending CMV serum titer negative HIDA scan negative, MRCP with dilated CBD but no choledocholithiasis. LFTs normal Needs colonoscopy but GI deferring for now until acute pulmonary issues resolve Celiac panel negative If AFB blood cxs positive, would confirm disseminated MAC. Likely to start MAC treatment in next 1-2 weeks continues to be improved with Imodium and Bentyl. Continue cholestyramine for now in addition to Imodium and scheduled bentyl bid Replace magnesium due to GI losses (4) HIV (human immunodeficiency virus infection): Plan: Dx in 2013, treatment with [employer] [facility] at [place] [facility] Rose Mccray at [place] for HIV care On bactrim ds once daily for prophylaxis CD4 count 69 Continue Biktarvy ID consult here appreciated-may need to change regimen based on which antibiotics are needed for MAC due to interactions He will certainly need close ID follow up after discharge (5) Hypotension: Plan: Chronic and asymptomatic Patient reports he chronically has lower blood pressures when he is laying down at rest but they improve when he sits up. Could be hypovolemia from diarrhea. His severe anemia is also likely contributing. His ACTH stim test was essentially normal and his a.m. cortisol level was normal-he does not have adrenal insufficiency (6) Vision loss of left eye: Plan: Noted OS vision loss in 2021 and pt self discontinued ethambutol at that time as he knew it could cause vision problems He was seen he thinks multiple times by Ophthalmology in the hospital at [facility] as well as by an outpatient Outsole Cementer in 2021 Records request sent for more details Discussed case with Dr. Deondre Sun ham boner Ophtho here--> recommended obtaining records and then possible office visit for thorough eye exam as an outpatient -ID ordered toxoplasmosis titer, CMV, RPR--> RPR and CMV negative, toxo pending Plan DVT proph-safe to start Lovenox due to prolonged immobility, acute illness, and stable hgb without evidence of bleeding Disposition-continued stay but eventually back to [facility] after AFB cultures resulted. Ok to downgrade off tele but should remain on TB precautions Admission and Anticipated Discharge Date Admission Date: May 09, 2023 Subjective pt states has persistent sinus drainage at times with blood, no real facial pressure or maxillary tooth pain diarrhea is firming up Physical Exam Physical Exam: cardiac exam is regular, lungs coarse at bases, good air movement no facial pain to exam Results & Data Results & Data Vital Signs (Past 12 Hours) Vital Signs Temp Pulse Resp BP Pulse Ox O2 Del Method 05/27/23 09:00 Room Air 05/27/23 08:52 98.1 F 84 16 96/57 L 97 Room Air PG Care Time/CCT Total # of Minutes Spent Total Time Spent with Patient: Total time spent is greater than 50% in coordination of care (as documented) at patient's floor/unit and/or counseling patient: Coding Level of Care Code 60527 SUB INP/OBS CARE 2/35MIN Diagnoses Cough R05.9 Anemia D64.9 Diarrhea R19.7 HIV (human immunodeficiency virus infection) B20 Hypotension I95.9 Vision loss of left eye H54.62
[2023-05-28] MEDS: guaiFENesin/DEXTROM SYRUP 200MG/20MG 10ML UDC PO SCH ×4 (00:15→16:57)
[2023-05-28] MEDS: BIKTARVY PO SCH (08:54)
[2023-05-28] MEDS: DICYCLOMINE HCL 10 MG CAP PO SCH ×2 (08:55→20:55)
[2023-05-28] MEDS: LOPERAMIDE HCL 2 MG CAP PO SCH ×4 (08:55→20:55)
[2023-05-28] MEDS: CHOLECALCIFEROL 1,000 UNITS 25 MCG TAB PO SCH (08:55)
[2023-05-28] MEDS: FOLIC ACID 1 MG in SYRINGE 9.8 ML IV SCH (08:57)
[2023-05-28] MEDS: SULFAMETHOXAZOLE/TRIMETHOPRIM DS 800/160MG TAB PO SCH (08:57)
[2023-05-28] MEDS: UMECLIDINIUM BROMIDE 62.5MCG/BLISTER 7 PUFFS/INHALER INH SCH (08:59)
[2023-05-28] MEDS: ENOXAPARIN INJ 40 MG/0.4 ML SYR SQ SCH (11:15)
[2023-05-28] MEDS: CHOLESTYRAMINE LIGHT 4 GM PKT PO SCH ×2 (11:16→22:24)
--- NOTE | 2023-05-28 13:08 | Infectious Disease Progress Nt ---
Date of Service May 28, 2023 Assessment & Plan (1) Diarrhea: (2) HIV (human immunodeficiency virus infection): (3) Hypotension: (4) Cough: Plan Micro: 05/24 Toxoplasma serologies: pending 05/24 RPR: nonreactive 05/23 Urine legionella Ag: not detected 05/21 Urine histo Ag: pending 05/21 Serum Aspergillus Ag: pending 05/21 Serum CMV PCR: not detected 05/21 Stool O&P: pending 05/21 Serum CrAg: pending 05/17 AFB blood culture: pending 05/16 Sputum AFB smear neg, cx +AFB, pending ID 05/16 Sputum AFB smear neg, cx +AFB, pending ID 05/15 Sputum AFB smear neg, cx +AFB, pending ID 05/15 Sputum cx: heavy normal rosa 05/15 Sputum cx: heavy normal rosa 05/15 Sputum AFB smear neg, cx +AFB, pending ID 05/12 Stool Giardia Ag: neg 05/11 Quant gold: neg 05/10 Sputum cx: mod normal rosa 05/10 Sputum PJP PCR: neg 05/10 C diff neg 05/10 Stool PCR panel: neg 05/09 BDG < 31 05/09 RVP neg 05/09 BCx x2: NG Abx: Cefepime 05/09-05/11, 05/16 - 05/22 Azithro 05/11 - 05/16 Vanc 05/09 HIV meds: Biktarvy TMP/SMX 1 DS tab daily Problems: #HIV/AIDS: CD4 69, VL UD. Reportedly adherent to Biktarvy, Bactrim ppx #Pneumonia, consolidation and GGO #Hypotension #weight loss #Fever: on 05/17 #Anemia #Currently Incarcerated #Persistent Leukocytosis #History of PJP (2019) #History of MAC (2021): pt reports he stopped ethambutol due to vision changes, and did not complete 1 year of therapy 42 yo incarcerated M with HIV (CD4 69/5%, VL UD in 04/2023, adherent to Biktarvy and Bactrim ppx), vitamin D deficiency, FREDIS, PJP pneumonia (2019), prior diagnosis of MAC who presented on 05/09 due to hypotension to 80s/50s, worsening cough, diarrhea, weight loss, admitted with c/f disseminated MAC. Pt has had watery non-bloody diarrhea x 3-4 weeks, dry cough ongoing x 1.5 months but worsening, mild SOB on exertion over the past few weeks. Denied fevers, chills, night sweats, hemoptysis. Reported unintentional weight loss (166 --> 146 lbs over 3.5 months). On presentation, pt was afebrile, BP 90/61, SpO2 100% on room air. Labs showed WBC 11.88, Hb 7.3, procalcitonin 1, lactate 1.1. UA negative. MRSA nares negative. RVP negative. LDH 146. CTA chest showed no PE, bronchiectasis with chronic interstitial lung disease and biapical blebs and bulla formation, patchy and irregular areas of consolidation most pronounced within the right middle lobe and lingula with upper lung zone predominant groundglass densities may also be related to the chronic lung disease however superimposed infectious or inflammatory pneumonitis could appear similarly. CT A/P with IV contrast showed nonspecific wall thickening of multiple jejunal loops, may be related to underdistention or other etiologies such as hypoalbuminemia, nonspecific enteritis given mesenteric stranding could appear similarly, a few mildly enlarged mesenteric lymph nodes, likely benign. Patient was started on empiric cefepime and azithromycin for possible bacterial pneumonia, completed empiric 7 day course of cefepime on 05/22. He spiked a fever to 38.1 on 05/17, and has been afebrile since. Remains with mild leukocytosis. Continues with soft BPs. For his pulmonary findings, pt underwent TB evaluation, with 3 negative sputum AFB smears, quantiferon gold negative. AFB cultures currently growing AFB, awaiting identification. Most likely indicative of MAC, given pt report of history of MAC in the last year for which he did not complete treatment, and stopped ethambutol prematurely due to some L eye vision changes. Pt reports that he did not tell anyone about his visual changes, and stopped the ethambutol on his own. Raises concern that he was on azithro alone, leading to resistance. With positive AFB, could also consider TB, given history of incarceration, but no history of travel outside the country, hemoptysis, night sweats. BDG is negative, and sputum PJP PCR is negative. Therefore, PJP pneumonia is unlikely, especially as patient has reportedly been adherent to prophylactic Bactrim. RVP negative. Sputum culture growing normal rosa. Also consider Crypto, Histo. Pulm was consulted--recommended deferring bronchoscopy at this time until hypotension and severe anemia resolved/improved, wanted to review outside imaging as his CT findings could be fibrotic changes related to history of PJP, intubation, and pneumothorax. Pulm signed off. For his diarrhea, C diff, stool PCR panel, and stool Giardia Ag are negative. Would consider disseminated MAC as a cause of diarrhea. Also consider other infectious etiologies such as microsporidium, isospora, CMV. Consider lymphoma, Kaposi's sarcoma. His hypotension may be reflective of failure to thrive, adrenal insufficiency, fungal infections, MTB or disseminated ROSA/MAC potentially. Most concerned for disseminated MAC at this time, which could explain his constellation of pulmonary symptoms, diarrhea, weight loss, anemia. CT did show mild hepatosplenomegaly, apparent wall thickening of multiple jejunal loops, several mildly enlarged mesenteric lymph nodes--seems nonspecific, but could be seen in disseminated MAC. Review of a scanned note from 01/22/23 indicates a prior history of disseminated MAC in 11/2021, and history of CMV infection. While incarcerated, he has seen LINUS Weaver at [facility] twice via telemedicine for his HIV care. Previously saw a Dr. Escamilla (?) of infectious disease in [facility]. Recommended ophthalmology consult to evaluate for cause of L eye visual changes. Could be related to ethambutol (optic neuritis), vs CMV retinitis, toxo, etc. Unfortunately, ophthalmology feels that a bedside exam will not be sufficient for diagnosis, and that pt will need to present to clinic. Primary team attempting to get records from prior eye exams. Pt reports he saw an manager strategy in 2021 while he was hospitalized at [facility], but did not have visual symptoms at that time. He also subsequently saw an chemical etching processor, but did not tell them about his visual symptoms. Recommendations: -If ophthalmology is unable to evaluate the patient, recommend prompt outpatient evaluation for whether pt's visual complaints can be explained by ethambutol (optic neuritis), or whether the visual changes can be explained by CMV retinitis, toxoplasma, etc. Anticipate that pt will need to be treated for disse minated MAC, for which ethambutol is a critically important medication--otherwise, pt will require alternative therapies which have associated toxicities, difficult administration (IV), very difficult to access (clofazimine) -Follow-up AFB identification (sample sent to [place] for identification reportedly [email or web address], new sample sent on 05/24) -Follow-up mycobacterial blood culture (sent 05/17), stool O&P, urine histo Ag, serum Crypto Ag, galactomannan, toxo serologies -Continue Biktarvy daily for now -Continue Bactrim prophylaxis as active PJP is less likely as per above -If the AFB is identified as MAC, then will need to start therapy for disseminated MAC. Standard therapy is azithromycin plus ethambutol--however, unclear whether he will be able to take ethambutol, as pt reports he had visual changes on ethambutol. He is highly concerned about medication side effects. His report of stopping ethambutol on his own raises concern that the MAC could have developed resistance on a 1-drug (likely macrolide?) regimen. Will be important to obtain sensitivities if his cultures end up growing MAC. If ethambutol cannot be used, pt will need 3 drug therapy. This is because azithro plus rifamycin eliud ne has higher chance of leading to resistance. Regimen would likely be: 1) azithromycin (hopefully not resistant), 2) rifabutin, 3) IV amikacin three times a week or clofazimine PO. Clofazimine will be extremely difficult to access--requires request for IND, and company is likely hesitant to allow its use in HIV patients based on a prior study showing increased mortality. [facility] reports they are able to administer IV antibiotics at their fci. 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 He would need minimum 12 months of MAC therapy, however pt would need CD4 count > 100 for at least 6 months before discontinuation of MAC treatment. -If IV amikacin is initiated, will appreciate pharmacy assistance with dosing. Likely ~650 mg three times a week, with target peak ~30-40, with undetectable troughs. Would ideally remain inpatient until a stable amikacin dosing is obtained, prior to discharge. -If pt requires rifabutin, note that this has drug-drug interactions with Biktarvy. Biktarvy would have to be switched to dolutegravir plus Truvada. -Will hold off on initiating empiric MAC treatment for now, until there is confirmation that the AFB is not TB (otherwise, single drug rifabutin in treatment of TB could lead to resistance) Will continue to follow. Aisha Elmore MD, MPH Infectious Disease ID [facility], ID Division Call [phone] with questions Admission and Anticipated Discharge Date Admission Date: May 09, 2023 Subjective This patient recommendation is based on a telemedicine consult request which was completed asynchronously through chart review and information provided by the primary physician. The patient was not seen or examined today. The evaluation is consultative in nature and all patient care and treatment decisions can either be accepted or rejected by the patient's primary hospital-based treating physician using their own independent medical judgment for their patient. Time Spent Reviewing Chart: 11 - 20 minutes Afebrile AFB identification pending . Results & Data Vital Signs (Past 12 Hours) Vital Signs Temp Pulse Resp BP Pulse Ox O2 Del Method 05/28/23 09:50 Room Air 05/28/23 07:44 36.8 C 87 14 96/60 L 96 Room Air Laboratory Results Laboratory Results - last 48 hr 05/21/23 19:09 A. galactomannan Ag Not Detected A. galactomannan Ag Idx 0.10 Diagnostic Findings Microbiology 05/16/23 11:00 Sputum, Expectorated Acid Fast Bacilli Smear - Final 05/16/23 11:00 Sputum, Expectorated Acid Fast Bacilli Culture - Preliminary Acid-fast bacilli present 05/16/23 Unknown Sputum, Expectorated Acid Fast Bacilli Smear - Final 05/16/23 Unknown Sputum, Expectorated Acid Fast Bacilli Culture - Preliminary Acid-fast bacilli present 05/15/23 Unknown Sputum, Expectorated Acid Fast Bacilli Smear - Final 05/15/23 Unknown Sputum, Expectorated Acid Fast Bacilli Culture - Preliminary Acid-fast bacilli present 05/14/23 23:00 Sputum, Expectorated Acid Fast Bacilli Smear - Final 05/14/23 23:00 Sputum, Expectorated Acid Fast Bacilli Culture - Preliminary Acid-fast bacilli present 05/15/23 Unknown Sputum, Expectorated Gram Stain - Final 05/15/23 Unknown Sputum, Expectorated Sputum Culture - Final Heavy normal rosa. 05/14/23 23:00 Sputum, Expectorated Gram Stain - Final 05/14/23 23:00 Sputum, Expectorated Sputum Culture - Final Heavy normal rosa. 05/09/23 11:39 Blood Aerobic Blood Culture - Final No growth in Aerobic bottle after 5 days. 05/09/23 11:39 Blood Anaerobic Blood Culture - Final 05/09/23 11:20 Blood Aerobic Blood Culture - Final No growth in Aerobic bottle after 5 days. 05/09/23 11:20 Blood Anaerobic Blood Culture - Final No growth in Anaerobic bottle after 5 days. 05/10/23 16:16 Sputum, Expectorated Gram Stain - Final 05/10/23 16:16 Sputum, Expectorated Sputum Culture - Final Moderate normal rosa. Sinuses CT 05/27/23 13:[address] DOSE: 658.65 mGy.cm HISTORY: recurrent bloody nasal drainage, HIV TECHNIQUE: Multiaxial CT images of the paranasal sinuses were performed and reformatted in the coronal plane without the use of contrast. A dose lowering technique was utilized adhering to the principles of ALARA. COMPARISON: None. FINDINGS: The visualized brain parenchyma and orbits are unremarkable. The pterygopalatine fossa are maintained. Mild mucosal thickening within the frontal sinuses and sphenoid sinuses. Moderate mucosal thickening within the ethmoid air cells and maxillary sinuses. No fluid levels within the paranasal sinuses. The mastoid air cells are clear. Partial opacification of the bilateral ostiomeatal units. Mild right nasal septal deviation. No erosive changes identified. The lamina papyracea and orbital floors are intact. The orbits are unremarkable. IMPRESSION: 1. Dwbo-ib-itoeanyq chronic sinus disease as described above. No fluid levels to suggest acute sinusitis. 2. No erosive changes or masses identified. ACT 112: Negative or not required by law. Electronically signed by: Paco Pugh M.D. 05/27/2023 1:49 PM Medications Administered Home Medications Medication Instructions Recorded Confirmed Last Taken Biktarvy 1 tab PO DAILY 05/09/23 05/09/23 Unknown cholecalciferol (vitamin D3) 25 25 mcg PO DAILY 05/09/23 05/09/23 Unknown mcg (1,000 unit) tablet ergocalciferol (vitamin D2) 1,250 50,000 unit PO . WEEKLY ON Fridays05/09/23 05/09/23 Unknown mcg (50,000 unit) capsule (Drisdol) ferrous sulfate 324 mg (65 mg 324 mg PO DAILY 05/09/23 05/09/23 Unknown iron) tablet,delayed release sulfamethoxazole 800 1 tab PO DAILY 05/09/23 05/09/23 Unknown mg-trimethoprim 160 mg tablet (Bactrim DS) Active Medications Generic Name Dose Route Start Last Admin Trade Name Freq PRN Reason Stop Dose Admin Acetaminophen 650 mg 05/09/23 15:33 05/17/23 03:25 Acetaminophen 325 Mg Tab PO 06/08/23 15:32 650 mg Q4H PRN Administration pain (1-4) /fever Bictegravir/Emtricitabine/Tenofovir 1 each 05/10/23 09:00 05/28/23 08:54 Biktarvy PO 06/09/23 08:59 1 each DAILY JANES Administration Protocol Cholestyramine Resin 4 gm 05/21/23 17:35 05/28/23 11:16 Cholestyramine Light 4 Gm Pkt PO 06/20/23 17:34 4 gm BID@1000,2200 JANES Administration Dicyclomine HCl 10 mg 05/24/23 21:00 05/28/23 08:55 Dicyclomine Hcl 10 Mg Cap PO 06/23/23 20:59 10 mg BID JANES Administration Enoxaparin Sodium 40 mg 05/25/23 12:00 05/28/23 11:15 Enoxaparin Inj 40 Mg/0.4 Ml Syr SQ 06/24/23 11:59 Not Given Q24H JANES Guaifenesin/Dextromethorphan 10 ml 05/21/23 18:00 05/28/23 11:15 Guaifenesin/Dextrom Syrup 200mg/20mg 10ml Udc PO 06/20/23 17:59 10 ml Q6H JANES Administration Folic Acid 1 mg/ Syringe 10 mls @ 5 mls/min 05/21/23 09:00 05/28/23 08:57 IV 06/20/23 08:59 5 mls/min DAILY@0900 JANES Administration Loperamide HCl 2 mg 05/19/23 21:00 05/28/23 11:16 Loperamide Hcl 2 Mg Cap PO 06/18/23 20:59 Not Given QID JANES Menthol 1 tunde 05/10/23 10:21 05/26/23 00:32 Cough Drop (Sugar Free) Tunde 24 Utnde/1 Box BUCCAL 06/09/23 10:20 1 tunde UD PRN Administration Sore Throat Promethazine HCl 12.5 mg 05/11/23 13:04 05/19/23 23:20 Promethazine Hcl 12.5 Mg/10 Ml Udp PO 06/10/23 13:03 12.5 mg Q6H PRN Administration Cough Sodium Chloride 2 sprays 05/27/23 15:27 05/27/23 17:10 Sodium Chloride 0.65% Na Soln 45 Ml ([place]) NA 06/26/23 15:26 2 sprays Q4H PRN Administration Nasal Congestion Trimethoprim/Sulfamethoxazole 1 tab 05/18/23 09:00 05/28/23 08:57 Sulfamethoxazole/Trimethoprim Ds 800/160mg Tab PO 06/17/23 08:59 1 tab DAILY JANES Administration Umeclidinium [place] 1 puffs 05/15/23 16:15 05/28/23 08:59 Umeclidinium [place] 62.5mcg/Blister 7 Puffs/Inhaler INH 06/14/23 16:14 Not Given DAILY JANES Vitamin D 1,000 units 05/26/23 09:00 05/28/23 08:55 Cholecalciferol 1,000 Units 25 Mcg Tab PO 06/25/23 08:59 1,000 units DAILY JANES Administration
--- NOTE | 2023-05-28 19:24 | Hospitalist Progress Note ---
Date of Service May 28, 2023 Assessment & Plan (1) Cough: Plan: Pt is a 42 yo male with a h/o HIV, PJP and MAC PNA, here with cough x 1 month along with diarrhea, no hypoxia CXR showed "right lung with apparent pleural thickening" History of collapsed lung and intubation in 2021 with 4 month long hospital stay and multiple chest tubes, previous pleurodesis CTA chest revealed no pulmonary emboli, but identified bronchiectasis with chronic interstitial lung disease AFB smears negative, AFB cultures of the sputum now + in 4/4 samples, AFB blood cx pending. TB vs MAC with sensitivities pending on AFB sputum cxs-send out to [facility] pending cryptococcal antigen and histoplasmosis antigen pending disseminated MAC is a concern given constellation of symptoms as per ID recommendations PJP essentially ruled out with negative Fungitell, normal LDH, and consistently taking Bactrim prophylaxis Respiratory bio fire negative Quantferon gold negative but could be false negative in the setting of low CD4 count Sputum cultures-heavy normal rosa but completed 7 days of Cefepime MRSA Screen negative; vancomycin discontinued Legionella urine ag negative Pulmonary said bronchoscopy deferred at this time, chest imaging findings could be from previous infections/scarring. Now with AFB sputum positive, await final ID and sensitivities and will likely need MAC vs TB therapy Continue TB precautions as per infection control recommendations until ruled out Continue guaifenesin w/ DM scheduled F/u crypto and histo studies 05/28/23 sending new afb blood cultures previous specimen is inadequeate >F/u AFB blood cx CT sinuses did not show any acute sinusitis for chronic sinusitis we use saline nasal spray at this time Appreciate ID recommendations-most likely will need treatment for disseminated MAC Given previous vision loss OS possibly due to ?optic neuritis from ethambutol, need more info--> discussed with Ophtho who said would need visit in the office for thorough eye exam. In meantime, will request records from 2021 when pt saw Ophthalmology at both [facility] and also at Optometry in [place], [place] on [facility] (possibly [facility] ) -His previous eye issues will determine if he can take ethambutol again vs alternative more complex regimens -if cannot determine cause of vision loss based on previous records, will need outpt Ophtho appt arranged with Dr. Deondre Sun who is aware of this case (2) Anemia: Plan: microcytic anemia, acute on chronic iron deficiency anemia,he reports being told he was anemic even a year ago -possibly related to his HIV medication No melena and blood in stool/urine, No signs of active bleeding Fecal occult stool positive but could be from iron pills improving after robust iron load Folate low at 4.3-continue IV folate as he is not absorbing much with gut wall edema B12 is normal, iron deficiency is severe -replaced with IV Venofer total of 1600mg this admission Haptoglobin is high, LDH and TBili normal-no hemolysis hemoglobin electrophoresis is normal but does not rule out alpha thalassemia Celiac TTG negative Appreciate hematology consultation GI recommends EGD and colonoscopy when patient is more stable- would need biopsies for CMV Follow CBC-hemoglobin improving at 9 gm range with ongoing likely reactive leukocytosis which is also now improving Continue Protonix 40 mg p.o. bid in case of GI bleeding (3) Diarrhea: Plan: Ongoing for over a month with weight loss--> Could be related to HIV, CMV, or disseminated MAC given +AFB in sputum Giardia negative, stool PCR negative to include Cryptosporidium Stool O&P pending CMV serum titer negative HIDA scan negative, MRCP with dilated CBD but no choledocholithiasis. LFTs normal Needs colonoscopy but GI deferring for now until acute pulmonary issues resolve Celiac panel negative If AFB blood cxs positive, would confirm disseminated MAC. Likely to start MAC treatment in next 1-2 weeks continues to be improved with Imodium and Bentyl. Continue cholestyramine for now in addition to Imodium and scheduled bentyl bid Replace magnesium due to GI losses (4) HIV (human immunodeficiency virus infection): Plan: Dx in 2013, treatment with [employer] at [place] [facility] Rose Mccray at [place] for HIV care On bactrim ds once daily for prophylaxis CD4 count 69 Continue Biktarvy ID consult here appreciated-may need to change regimen based on which antibiotics are needed for MAC due to interactions He will certainly need close ID follow up after discharge (5) Hypotension: Plan: Chronic and asymptomatic Patient reports he chronically has lower blood pressures when he is laying down at rest but they improve when he sits up. Could be hypovolemia from diarrhea. His severe anemia is also likely contribut ing. His ACTH stim test was essentially normal and his a.m. cortisol level was normal-he does not have adrenal insufficiency (6) Vision loss of left eye: Plan: Noted OS vision loss in 2021 and pt self discontinued ethambutol at that time as he knew it could cause vision problems He was seen he thinks multiple times by Ophthalmology in the hospital at [facility] as well as by an outpatient [facility] in 2021 Records request sent for more details Discussed case with Dr. Deondre Sun complex commercial litigation paralegal Ophtho here--> recommended ob taining records and then possible office visit for thorough eye exam as an outpatient -ID ordered toxoplasmosis titer, CMV, RPR--> RPR and CMV negative, toxo pending Plan DVT proph-safe to start Lovenox due to prolonged immobility, acute illness, and stable hgb without evidence of bleeding Disposition-continued stay but eventually back to alf after AFB cultures resulted. Ok to downgrade off tele but should remain on TB precautions Admission and Anticipated Discharge Date Admission Date: May 09, [address] results, does not want to start nasal inhaler, will use nasal saline diarrhea is firming up no new complaints Physical Exam Physical Exam: cardiac exam is regular, lungs coarse at bases, good air movement no facial pain to exam Results & Data Results & Data Vital Signs (Past 12 Hours) Vital Signs Temp Pulse Resp BP BP Pulse Ox O2 Del Method 05/28/23 15:24 98.4 F 83 18 99/73 L 96 Room Air 05/28/23 09:50 Room Air 05/28/23 07:44 98.2 F 87 14 96/60 L 96 Room Air Laboratory Results discussed with lab, blood mycobacteria test was too small sample and reference lab only could identify AFB but not distinguish TB from MAC, will need to resent and have another week to [place], [place] discuss with ID and alf if can return while waiting, maybe have eye exam although not sure 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
[2023-05-28] MEDS: COUGH DROP (SUGAR FREE) LOZ 24 LOZ/1 BOX BUCCAL PRN (21:00)
[2023-05-29] MEDS: guaiFENesin/DEXTROM SYRUP 200MG/20MG 10ML UDC PO SCH ×5 (00:31→22:20)
[2023-05-29 01:58] LABS: Cryptococcal Antigen Not Detected (Not Detected); Source Serum
[2023-05-29] MEDS: LOPERAMIDE HCL 2 MG CAP PO SCH ×4 (07:43→22:19)
[2023-05-29] MEDS: SULFAMETHOXAZOLE/TRIMETHOPRIM DS 800/160MG TAB PO SCH (08:36)
[2023-05-29] MEDS: CHOLECALCIFEROL 1,000 UNITS 25 MCG TAB PO SCH (08:36)
[2023-05-29] MEDS: BIKTARVY PO SCH (08:36)
[2023-05-29] MEDS: DICYCLOMINE HCL 10 MG CAP PO SCH ×2 (08:36→22:19)
[2023-05-29] MEDS: UMECLIDINIUM BROMIDE 62.5MCG/BLISTER 7 PUFFS/INHALER INH SCH (09:09)
[2023-05-29] MEDS: FOLIC ACID 1 MG TAB PO SCH (09:10)
[2023-05-29] MEDS: CHOLESTYRAMINE LIGHT 4 GM PKT PO SCH ×2 (10:18→22:19)
[2023-05-29] MEDS: ENOXAPARIN INJ 40 MG/0.4 ML SYR SQ SCH (11:19)
--- NOTE | 2023-05-29 19:37 | Hospitalist Progress Note ---
Date of Service May 29, 2023 Assessment & Plan (1) Cough: Plan: Pt is a 42 yo male with a h/o HIV, PJP and MAC PNA, here with cough x 1 month along with diarrhea, no hypoxia CXR showed "right lung with apparent pleural thickening" History of collapsed lung and intubation in 2021 with 4 month long hospital stay and multiple chest tubes, previous pleurodesis CTA chest revealed no pulmonary emboli, but identified bronchiectasis with chronic interstitial lung disease AFB smears negative, AFB cultures of the sputum now + in 4/4 samples, AFB blood cx could not identify TB vs MAC resent with sensitivities pending on AFB sputum cxs-send out to reference lab cryptococcal antigen and histoplasmosis antigen pending disseminated MAC is a concern given constellation of symptoms as per ID recommendations PJP essentially ruled out with negative Fungitell, normal LDH, and consistently taking Bactrim prophylaxis Respiratory bio fire negative Quantferon gold negative but could be false negative in the setting of low CD4 count Sputum cultures-heavy normal rosa but completed 7 days of Cefepime MRSA Screen negative; vancomycin discontinued Legionella urine ag negative Pulmonary said bronchoscopy deferred at this time, chest imaging findings could be from previous infections/scarring. Now with AFB sputum positive, await final ID and sensitivities and will likely need MAC vs TB therapy Continue TB precautions as per infection control recommendations until ruled out Continue guaifenesin w/ DM scheduled F/u crypto and histo studies 05/28/23 sending new afb blood cultures previous specimen is inadequeate >F/u AFB blood cx CT sinuses did not show any acute sinusitis for chronic sinusitis we use saline nasal spray at this time Appreciate ID recommendations-most likely will need treatment for disseminated MAC Given previous vision loss OS possibly due to ?optic neuritis from ethambutol, need more info--> discussed with Ophtho who said would need visit in the office for thorough eye exam. In meantime, will request records from 2021 when pt saw Ophthalmology at both [facility] and also at Optometry in [place], [place] on [facility] (possibly [facility] ) -His previous eye issues will determine if he can take ethambutol again vs alternative more complex regimens -if cannot determine cause of vision loss based on previous records, will need outpt Ophtho appt arranged with Dr. Deondre Sun who is aware of this case (2) Anemia: Plan: microcytic anemia, acute on chronic iron deficiency anemia,he reports being told he was anemic even a year ago -possibly related to his HIV medication No melena and blood in stool/urine, No signs of active bleeding Fecal occult stool positive but could be from iron pills improving after robust iron load Folate low at 4.3-continue IV folate as he is not absorbing much with gut wall edema B12 is normal, iron deficiency is severe -replaced with IV Venofer total of 1600mg this admission Haptoglobin is high, LDH and TBili normal-no hemolysis hemoglobin electrophoresis is normal but does not rule out alpha thalassemia Celiac TTG negative Appreciate hematology consultation GI recommends EGD and colonoscopy when patient is more stable- would need biopsies for CMV Follow CBC-hemoglobin improving at 9 gm range with ongoing likely reactive leukocytosis which is also now improving Continue Protonix 40 mg p.o. bid in case of GI bleeding (3) Diarrhea: Plan: Ongoing for over a month with weight loss--> Could be related to HIV, CMV, or disseminated MAC given +AFB in sputum Giardia negative, stool PCR negative to include Cryptosporidium Stool O&P pending CMV serum titer negative HIDA scan negative, MRCP with dilated CBD but no choledocholithiasis. LFTs normal Needs colonoscopy but GI deferring for now until acute pulmonary issues resolve Celiac panel negative If AFB blood cxs positive, would confirm disseminated MAC. Likely to start MAC treatment in next 1-2 weeks continues to be improved with Imodium and Bentyl. Continue cholestyramine for now in addition to Imodium and scheduled bentyl bid Replace magnesium due to GI losses (4) HIV (human immunodeficiency virus infection): Plan: Dx in 2013, treatment with [employer] [facility] [place] [facility] [place] for [facility] care On bactrim ds once daily for prophylaxis CD4 count 69 Continue Biktarvy ID consult here appreciated-may need to change regimen based on which antibiotics are needed for MAC due to interactions He will certainly need close ID follow up after discharge (5) Hypotension: Plan: Chronic and asymptomatic Patient reports he chronically has lower blood pressures when he is laying down at rest but they improve when he sits up. Could be hypovolemia from diarrhea. His severe anemia is also likely contributing. His ACTH stim test was essentially normal and his a.m. cortisol level was normal-he does not have adrenal insufficiency (6) Vision loss of left eye: Plan: Noted OS vision loss in 2021 and pt self discontinued ethambutol at that time as he knew it could cause vision problems He was seen he thinks multiple times by Ophthalmology in the hospital at [facility] as well as by an outpatient Potato S[employer] in 2021 Records request sent for more details Discussed case with Dr. Deondre Sun application development team lead Ophtho here--> recommended obtaining records and then possible office visit for thorough eye exam as an outpatient -ID ordered toxoplasmosis titer, CMV, RPR--> RPR and CMV negative, toxo pending Plan DVT proph-safe to start Lovenox due to prolonged immobility, acute illness, and stable hgb without evidence of bleeding discussed with care home as we are going to wait another 1 to 2 weeks for this AFB sample to be further identified whether TB or MAC. Subsequently the patient can return to care home with negative pressure areas there. If the results do come back for MAC patient can be readmitted to our facility as discussion for starting ethambutol and azithromycin given perhaps previous reaction to ethambutol. Difficult to have eye examination and active TB rule out and primary care offices subsequently will likely need to table that until we have results of testing spoke multiple times with care home physician Dr. RODRÍGUEZ and also present health blast furnace supervisor Yossi, tentative acceptance back to their facility 05/30/2023 Admission and Anticipated Discharge Date Admission Date: May 09, 2023 Subjective Afebrile AFB identification pending , initial sample resulted inadequate, resent sample 05/28/23. Physical Exam Physical Exam: cardiac exam is regular, lungs coarse at bases, good air movement no facial pain to exam Results & Data Results & Data Vital Signs (Past 12 Hours) Vital Signs Temp Pulse Resp BP BP Pulse Ox O2 Del Method 05/29/23 14:09 98.4 F 92 H 18 93/59 L 95 Room Air 05/29/23 07:45 Room Air 05/29/23 07:37 98.4 F 83 18 97/64 L 94 Room Air PG Care Time/CCT Total # of Minutes Spent Total Time Spent with Patient: Total time spent is greater than 50% in coordination of care (as documented) at patient's floor/unit and/or counseling patient: Coding Level of Care Code 41366 SUB INP/OBS CARE 2/35MIN Diagnoses Cough R05.9 Anemia D64.9 Diarrhea R19.7 HIV (human immunodeficiency virus infection) B20 Hypotension I95.9 Vision loss of left eye H54.62
[2023-05-30] MEDS: guaiFENesin/DEXTROM SYRUP 200MG/20MG 10ML UDC PO SCH ×2 (05:07→12:19)
[2023-05-30] MEDS: FOLIC ACID 1 MG TAB PO SCH (08:27)
[2023-05-30] MEDS: SULFAMETHOXAZOLE/TRIMETHOPRIM DS 800/160MG TAB PO SCH (08:27)
[2023-05-30] MEDS: DICYCLOMINE HCL 10 MG CAP PO SCH (08:27)
[2023-05-30] MEDS: CHOLECALCIFEROL 1,000 UNITS 25 MCG TAB PO SCH (08:27)
[2023-05-30] MEDS: LOPERAMIDE HCL 2 MG CAP PO SCH ×2 (08:28→12:17)
[2023-05-30] MEDS: UMECLIDINIUM BROMIDE 62.5MCG/BLISTER 7 PUFFS/INHALER INH SCH (08:28)
[2023-05-30] MEDS: BIKTARVY PO SCH (08:29)
[2023-05-30] MEDS: CHOLESTYRAMINE LIGHT 4 GM PKT PO SCH (10:15)
[2023-05-30] MEDS: ENOXAPARIN INJ 40 MG/0.4 ML SYR SQ SCH (12:19)
[2023-05-30] MEDS: COUGH DROP (SUGAR FREE) LOZ 24 LOZ/1 BOX BUCCAL PRN (12:22)
--- NOTE | 2023-05-30 17:49 | Discharge Summary ---
Date of Service May 30, 2023 Principal Diagnosis acid fast bacilli infection Discharge Exam non productive cough lungs have become clear to exam Discharge Data Allergies Allergy/AdvReac Type Severity Reaction Status Date / Time No Known Allergies Allergy Unverified 05/09/23 12:19 Consultations 05/09/23 13:06 ED Decision to Admit Stat 05/11/23 09:40 Consult Infectious Diseases Routine 05/14/23 14:25 Consult Pulmonology Routine 05/14/23 16:36 Consult Hematology Routine 05/15/23 15:30 Consult Gastroenterology Routine Ordered Studies 05/09/23 12:34 CT abd pelvis IV con only Stat CT angio chest PE protocol Stat 05/19/23 12:16 MR MRCP Routine 05/27/23 13:07 CT sinus wo con Routine Hospital Course (1) Cough: Pt is a 42 yo male with a h/o HIV, PJP and MAC PNA, here with cough x 1 month along with diarrhea, no hypoxia CXR showed "right lung with apparent pleural thickening" History of collapsed lung and intubation in 2021 with 4 month long hospital stay and multiple chest tubes, previous pleurodesis CTA chest revealed no pulmonary emboli, but identified bronchiectasis with chronic interstitial lung disease AFB smears negative, AFB cultures of the sputum now + in 4/4 samples, AFB blood cx could not identify TB vs MAC inital specimen 05/17 unsuccessful identificaion, resent 05/28 with sensitivities pending on AFB sputum cxs- I called reference lab to confirm appropirate sample recieved cryptococcal antigen and histoplasmosis antigen pending at ma disseminated MAC is a concern given constellation of symptoms as per ID recommendations PJP essentially ruled out with negative Fungitell, normal LDH, and consistently taking Bactrim prophylaxis Respiratory bio fire negative Quantferon gold negative but could be false negative in the setting of low CD4 count (69) Sputum cultures-heavy normal rosa but completed 7 days of Cefepime MRSA Screen negative; vancomycin discontinued Legionella urine ag negative Pulmonary said bronchoscopy deferred at this time, chest imaging findings could be from previous infections/scarring. Now with AFB sputum positive, await final ID and sensitivities and will likely need MAC vs TB therapy Continue TB precautions as per infection control recommendations until ruled out Continue guaifenesin w/ DM scheduled F/u crypto and histo studies 05/28/23 sending new afb blood cultures >F/u AFB blood cx CT sinuses did not show any acute sinusitis for chronic sinusitis we use saline nasal spray at this time Appreciate ID recommendations-most likely will need treatment for disseminated MAC Pt will return to longterm for respiratory isolation, and when sample returns if MAC will try to coordinate outpt optho eval as below and will need readmission to initiate therapy under supervision of ID Given previous vision loss OS possibly due to ?optic neuritis from ethambutol, need more info--> discussed with Ophtho who said would need visit in the office for thorough eye exam. In meantime, will request records from 2021 when pt saw Ophthalmology at both [facility] and also at Optometry in [place], [place] on [facility] (possibly [facility] ) -His previous eye issues will determine if he can take ethambutol again vs alternative more complex regimens -if cannot determine cause of vision loss based on previous records, will need outpt Ophtho appt arranged with Dr. Deondre Sun who is aware of this case (2) Anemia: microcytic anemia, acute on chronic iron deficiency anemia,he reports being told he was anemic even a year ago -possibly related to his HIV medication No melena and blood in stool/urine, No signs of active bleeding Fecal occult stool positive but could be from iron pills improving after robust iron load Folate low at 4.3-continue IV folate as he is not absorbing much with gut wall edema B12 is normal, iron deficiency is severe -replaced with IV Venofer total of 1600mg this admission Haptoglobin is high, LDH and TBili normal-no hemolysis hemoglobin electrophoresis is normal but does not rule out alpha thalassemia Celiac TTG negative Appreciate hematology consultation , improved after iron load, will recommend r echeck in one month GI recommends EGD and colonoscopy when patient is more stable- would need biopsies for CMV Follow CBC-hemoglobin improving at 9 gm range with ongoing likely reactive leukocytosis which is also now improving (3) Diarrhea: Ongoing for over a month with weight loss--> Could be related to HIV, CMV, or disseminated MAC given +AFB in sputum Giardia negative, stool PCR negative to include Cryptosporidium CMV serum titer negative HIDA scan negative, MRCP with dilated CBD but no choledocholithiasis. LFTs normal Needs colonoscopy but GI deferring for now until acute pulmonary issues resolve Celiac panel negative If AFB blood cxs positive, would confirm disseminated MAC. continues to be improved with Imodium and Bentyl. Continue cholestyramine for now in addition to Imodium and scheduled bentyl bid (4) HIV (human immunodeficiency virus infection): Dx in 2013, treatment with [facility] at [place] [facility] at [place] for HIV care On bactrim ds once daily for prophylaxis CD4 count 69 Continue Biktarvy ID consult here appreciated-may need to change regimen based on which antibiotics are needed for MAC due to interactions He will certainly need close ID follow up once AFB identified (5) Hypotension: Chronic and asymptomatic Patient reports he chronically has lower blood pressures when he is laying down at rest but they improve when he sits up. Could be hypovolemia from diarrhea. His severe anemia is also likely contributing. His ACTH stim test was essentially normal and his a.m. cortisol level was normal-he does not have adrenal insufficiency (6) Vision loss of left eye: Noted OS vision loss in 2021 and pt self discontinued ethambutol at that time as he knew it could cause vision problems He was seen he thinks multiple times by Ophthalmology in the hospital at [facility] as well as by an outpatient Slate [employer] in 2021 Records request sent for more details Discussed case with Dr. Deondre Sun rn transitional Ophtho here--> recommended obtaining records and then possible office visit for thorough eye exam as an outpatient -ID ordered toxoplasmosis titer, CMV, RPR--> RPR and CMV negative, toxo pending at time of discharge Plan discussed with longterm as we are going to wait another 1 to 2 weeks for this AFB sample to be further identified whether TB or MAC. Subsequently the patient can return to longterm with negative pressure areas there. If the results do come back for MAC patient can be readmitted to our facility as discussion for starting ethambutol and azithromycin given perhaps previous reaction to ethambutol. Difficult to have eye examination and active TB rule out and primary care offices subsequently will likely need to table that until we have results of testing spoke multiple times with longterm physician Dr. RODRÍGUEZ and also present health mailroom supervisor Yossi, tentative acceptance back to their facility 05/30/2023 Total Time Total Time Spent Total Time Spent (In Minutes): It required greater than 30 minutes to prepare this patient for discharge Discharge Plan Discharge Items [facility]position: [facility] Reason For Visit: COUGH, HYPOTENSION, GI BLEED R/O Discharge Diagnosis: pneumonitis, suspect MAC HIV positive status diarrhea resolved Condition on Discharge: Good Activity: Per Instructions section Activity Comment: airborne isolation Non-emergency contact: Primary Care Provider Call non-emergency contact if: your symptoms worsen Follow-up/Referrals: Tonya ORTIZ [Primary Care Provider] - Diet: Regular Addtl Attending Provider Instructions: Patient has a pneumonitis and has positive blood cultures for acid-fast bacilli. He has a previous history of MAC but was unable to tolerate full treatment course with ethambutol due to vision changes. Although his imaging changes do not appear consistent with tuberculosis and his QuantiFERON gold is negative given his immunosuppression infectious disease recommends further defining his AFB at outside laboratory to determine whether TB or MAC. Initial test was sent May 17 however it was insufficient and that resulted on the without the finding which kind of AFB this patient has. Subsequently a repeat test was sent on the . The patient is currently not on any treatment at all except for symptomatic relief of his diarrhea. Once this test returns if the patient has MAC he will likely need to be readmitted to the hospital for initiation of treatment which would likely be a prolonged course and consideration for eventual movement to present hospital might be warranted. If this results to be TB the [facility] health department can be contacted and initiate treatment at the correctional facility Another issue is if this does not result to be MAC the patient needs an ophthalmologic examination at this time the outpatient opera singer are hesitant to bring the patient to their office until tuberculosis is ruled out. Once ruled out perhaps coordination with an eye evaluation prior to readmission would be beneficial as this can determine which therapy is to be used to treat his MAC in the future. Until the time of his test results which will likely be somewhere between June 04 and June 14 the patient is to remain on all typical medications as he would be. Additionally the patient was found to be profoundly iron deficient it would be beneficial to test the patient's iron level in 30 days and if low can coordinate with hematology, who saw the patient as an inpatient consult, and organize outpatient intravenous iron infusions. Pending Studies at Discharge: Yes Studies:: Speciation of acid-fast bacilli is a send out test currently pending Stand-Alone Forms: My [facility] Skilled Items Patient informed of condition?: Yes Discharge Level of Care: Other Communicable Disease: Yes Discharge Prognosis: Stable Lines: None Urinary Catheter: No Medications and DC Order Prescriptions: New loperamide 2 mg Capsule 2 mg PO QID Qty: 120 3RF folic acid 1 mg Tablet 1 mg PO DAILY Qty: 30 0RF dicyclomine 10 mg Capsule 10 mg PO BID Qty: 60 2RF cholestyramine-aspartame [Prevalite] 4 gram Powder In Packet 1 ea PO BID@1000,2200 Qty: 60 6RF Cepacol Sore Throat (zev-men) 15-3.6 mg Lozenge 1 lyle buccal UD PRN (Reason: sore throat) Qty: 10 0RF Incruse Ellipta 62.5 mcg/actuation Blister With Device 1 inh inhalation DAILY Qty: 1 0RF Continued sulfamethoxazole-trimethoprim [Bactrim DS] 800-160 mg Tablet 1 tab PO DAILY ergocalciferol (vitamin D2) [Drisdol] 1,250 mcg (50,000 unit) Capsule 50,000 unit PO . WEEKLY ON FRIDAYS cholecalciferol (vitamin D3) 25 mcg (1,000 unit) Tablet 25 mcg PO DAILY ferrous sulfate 324 mg (65 mg iron) Tablet,Delayed Release (Dr/Ec) 324 mg PO DAILY Biktarvy 1 tab PO DAILY Rx Instructions: unknown dose Discharge Orders: Discharge Order (Routine); Ordered 05/30/23 Ordered By: Duran Hastings Admission Data Admit Date/Time: 05/09/23 14:14 Attending Provider: Duran Hastings Admit Provider: Ortiz Ceballos Primary Care Provider: Tonya ORTIZ Other Providers: Ortiz Ceballos; Polly Majano; Claudy Mendoza; India Carrillo; Connie Sheffield; Lucy Anaya; Katie Newton; Jessica Thompson; Aisha Elmore; Clau Gamez; Kori Flores; Michele Samano; Paul Agrawal; Juan Miguel Troncoso Other Interventions: Discharge Summary Assessment (RN) Last Done: 05/30/23 12:44 Coding Level of Care Code 18078 INP/OBS DISCH >30 MIN Diagnoses Cough R05.9 Anemia D64.9 Diarrhea R19.7 HIV (human immunodeficiency virus infection) B20 Hypotension I95.9 Vision loss of left eye H54.62
[2023-05-30 20:57] LABS: Toxoplasma gondii IgG Ab, EIA <7.20 IU/mL; Toxoplasma gondii IgM Ab, EIA <8.00 AU/mL
== END 2023-05-30 15:10 | DRG 977 ==
LOC: ED 09:28 → SUATTDRO 14:14 → EDINP 14:14 → 4W 15:33 → 2E 05-11 19:30 → 1E 05-22 14:54 → 3E 05-25 17:01
DX: D50.9 Iron deficiency anemia, unspecified; E86.0 Dehydration; B20 Human immunodeficiency virus [HIV] disease; J90 Pleural effusion, not elsewhere classified; R19.7 Diarrhea, unspecified; Y92.149 Unspecified place in prison as the place of occurrence of the external cause; E55.9 Vitamin D deficiency, unspecified; J84.9 Interstitial pulmonary disease, unspecified; A31.0 Pulmonary mycobacterial infection; J47.9 Bronchiectasis, uncomplicated; H46.3 Toxic optic neuropathy; K80.70 Calculus of gallbladder and bile duct without cholecystitis without obstruction; R19.5 Other fecal abnormalities; T37.1X5A Adverse effect of antimycobacterial drugs, initial encounter; Z79.899 Other long term (current) drug therapy

== ENCOUNTER 2023-11-06 15:46 | Inpatient (IN) ==
[2023-11-06 16:41] LABS: Basophils # (auto) 0.03 K/uL (0.00-0.20); Basophils % (auto) 0.4 %; Eosinophils # (auto) 0.04 K/uL (0.00-0.50); Eosinophils % (auto) 0.5 %; Hemoglobin 7.1 g/dl (14.0-18.0); Immature Granulocytes # (auto) 0.12 K/uL (0.01-0.20); Immature Granulocytes % (auto) 1.6 %; Lymphocytes # (auto) 0.81 K/uL (1.20-3.40); Lymphocytes % (auto) 10.7 %; Mean Corpuscular Hemoglobin 18.9 pg (25.0-34.0); Mean Corpuscular Hgb Conc 29.6 g/dL (32.0-36.0); Mean Corpuscular Volume 63.8 fL (80.0-100.0); Monocytes % (auto) 2.6 %; Neutrophils # (auto) 6.36 K/uL (1.40-6.50); Neutrophils % (auto) 84.2 %; RDW Coefficient of Variation 19.8 % (11.5-14.5); RDW Standard Deviation 44.4 fL (36.4-46.3); Red Blood Count 3.76 M/uL (4.70-6.10); White Blood Count 7.56 K/ul (4.8-10.8)
[2023-11-06 16:48] LABS: Alanine Aminotransferase 11 U/L (7-52); Albumin Globulin Ratio 0.4 (0.9-2); Albumin Level 2.5 gm/dl (3.4-5.0); Alkaline Phosphatase 112 U/L (34-104); Anion Gap 7 (3-11); Aspartate Aminotransferase 19 U/L (13-39); Bilirubin,Total 0.2 mg/dl (0.2-1.0); Blood Urea Nitrogen 16 mg/dl (6-23); Calcium 8.4 mg/dl (8.6-10.3); Carbon Dioxide 24 mmol/L (21-32); Chloride 97 mmol/L (98-107); Est GFR (African American) 107.9 ml/min; Est GFR (Non-African American) 93.1 ml/min; Globulin 5.8 gm/dl (2.5-4.0); Glucose 95 mg/dl (70-99(Fasting)); Lipase 34 U/L (11-82); Potassium 4.1 mmol/L (3.5-5.1); Sodium 128 mmol/L (136-145); Total Protein 8.3 gm/dl (6.0-8.3)
[2023-11-06 17:20] LABS: Mean Platelet Volume 9.2 fL (9.4-12.4); Microcytosis Present; Platelet Count 360 K/uL (130-400); Polychromasia 1+; Rouleaux 1+; Tear Drop Cells 1+; Toxic Vacuolation 1+
[2023-11-06] MEDS: SODIUM CHLORIDE 0.9% 1,000 ML IV ONE ×2 (19:19→21:09)
[2023-11-06] MEDS: OPTIRAY 320 100ml IV ONE (19:34)
--- NOTE | 2023-11-06 19:57 | CT Scan Report ---
Exam(s): CT ABDOMEN + PELVIS With Contrast IV Amt: 93 ml opti 320 EXAM: CT Abdomen and Pelvis With Intravenous Contrast CLINICAL HISTORY: Reason for exam: abd pain. TECHNIQUE: Axial computed tomography images of the abdomen and pelvis with intravenous contrast. CTDI is 8.5 mGy and DLP is 409.92 mGy-cm. Automated exposure control was utilized for the study. A dose lowering technique was utilized adhering to the principles of ALARA. CONTRAST: Patient received 93 ml opti 320 of IV contrast COMPARISON: No relevant prior studies available. FINDINGS: Lung bases: Unremarkable. No mass. No consolidation. ABDOMEN: Liver: Unremarkable. No mass. Gallbladder and bile ducts: Unremarkable. No calcified stones. No ductal dilation. Pancreas: Unremarkable. No mass. No ductal dilation. Spleen: Unremarkable. No splenomegaly. Adrenals: Unremarkable. No mass. Kidneys and ureters: Nonobstructing 3 mm RIGHT mid pole renal stone. Stomach and bowel: Moderate wall thickening of small bowel, consistent with high-grade enteritis. Moderate fecal retention. No acute diverticulitis. No small bowel obstruction. No free air. PELVIS: Appendix: No findings to suggest acute appendicitis. Bladder: Unremarkable. No mass. Reproductive: Unremarkable as visualized. ABDOMEN and PELVIS: Intraperitoneal space: See above. Bones/joints: No acute fracture. No dislocation. Soft tissues: Anasarca. Vasculature: Unremarkable. No abdominal aortic aneurysm. Lymph nodes: Unremarkable. No enlarged lymph nodes. IMPRESSION: Moderate wall thickening of small bowel, consistent with high-grade enteritis. Electronically signed by: Álvaro Hernández MD 11/06/23 19:56 PM
--- NOTE | 2023-11-06 21:22 | Emergency Department Note ---
History of Present Illness General Chief complaint: Hypotension Stated complaint: ABD PAIN, DEHYDRATION, LOW BP Time Seen by Provider: 11/06/23 18:18 History of Present Illness Provider complaint: Abdominal pain Maximum Pain Intensity: 5 43-year-old male incarcerated prisoner with a history of HIV and a low CD4 count presents emergency department for abdominal pain. Patient reports he has been having abdominal pain for the last week. Reports no diarrhea. No melena hematochezia. No nausea or vomiting. No hematuria or dysuria. Patient states he has been compliant with his antiviral medications. Patient states he is not sure what his last CD4 count was but was told it was "low". He states his viral load is undetectable. Home Medications Medication Instructions Recorded Confirmed Type cholecalciferol (vitamin D3) 25 25 mcg PO DAILY 05/09/23 11/06/23 History mcg (1,000 unit) tablet ergocalciferol (vitamin D2) 1,250 50,000 unit PO WK 05/09/23 11/06/23 History mcg (50,000 unit) capsule (Drisdol) sulfamethoxazole 800 1 tab PO DAILY 05/09/23 11/06/23 History mg-trimethoprim 160 mg tablet (Bactrim DS) folic acid 1 mg tablet 1 mg PO DAILY #30 tabs 05/30/23 11/06/23 Rx umeclidinium 62.5 mcg/actuation 1 inh inhalation DAILY #1 inhaler 05/30/23 11/06/23 Rx blister powder for inhalation (Incruse Ellipta) bictegravir 30 mg-emtricitabine 1 tab PO DAILY 07/18/23 11/06/23 History 120 mg-tenofovir alafenam 15 mg tablet (Biktarvy) guaifenesin 100 mg/5 mL oral liquid 200 mg PO Q4H PRN Cough 07/18/23 11/06/23 History azithromycin 500 mg tablet 500 mg PO DAILY 11/06/23 11/06/23 History brimonidine 0.15 % eye drops 1 drp OPL BID 11/06/23 11/06/23 History cholestyramine (with sugar) 4 gram 4 g PO BID 11/06/23 11/06/23 History powder for susp in a packet (Questran) cyanocobalamin (vitamin B-12) 1,000 mcg IM .Q2WKS 11/06/23 11/06/23 History 1,000 mcg/mL injection solution dicyclomine 10 mg capsule 10 mg PO BID PRN ABD PAIN NEEDED 11/06/23 11/06/23 History difluprednate 0.05 % eye drops 1 drp OPB QID 11/06/23 11/06/23 History (Durezol) ethambutol 100 mg tablet 200 mg PO DAILY 11/06/23 11/06/23 History ethambutol 400 mg tablet 400 mg PO DAILY 11/06/23 11/06/23 History (Myambutol) Allergies Allergy/AdvReac Type Severity Reaction Status Date / Time No Known Allergies Allergy Verified 11/06/23 19:06 Past Med/Surg History Medical History Hyperlipemia Vision loss of left eye LVH (left ventricular hypertrophy) Abnormal CT scan, chest Iron deficiency anemia Vitamin D deficiency HIV (human immunodeficiency virus infection) Social History Smoking Status: Never smoker Second Hand Exposure: Yes; Do You Dip or Chew Tobacco: No; Hx Alcohol Use: Yes Alcohol type: wine Hx Substance Use: No Preferred Language: Thai Communication Ability: Effective Economics Analyst Required: No Beliefs That Will Affect Care: Cultural Cultural Beliefs: does not eat pork Current Living Situation: Other Feels Safe at Home: Yes Assistive Devices: None Physical Exam Vital Signs Vital Signs - 24 hr 11/06/23 15:48 11/06/23 18:21 11/06/23 18:21 Temperature 36.6 C Temperature Source Oral Pulse Rate 106 H Pulse Rate [Apical] 83 Respiratory Rate 18 18 Blood Pressure 95/61 L Blood Pressure [Right Arm] 92/69 L Blood Pressure Mean 72 Blood Pressure Mean [Right Arm] 76 Pulse Oximetry 100 100 100 Oxygen Delivery Method Room Air Sepsis Recent Fever Within 48 Hours No Sepsis New/Unexplained Change in Mental Status N/A Sepsis Action Taken by Nursing No Action Required 11/06/23 19:24 11/06/23 20:00 Temperature Temperature Source Pulse Rate 85 Pulse Rate [Apical] 86 Respiratory Rate 20 Blood Pressure Blood Pressure [Right Arm] 91/56 L Blood Pressure Mean Blood Pressure Mean [Right Arm] 67 Pulse Oximetry 96 Oxygen Delivery Method Room Air Sepsis Recent Fever Within 48 Hours Sepsis New/Unexplained Change in Mental Status Sepsis Action Taken by Nursing Physical Exam GENERAL: She is oriented to person, place, and time. She appears well-developed and well-nourished. She does not appear distressed. HENT: Exam performed. -Head: Normocephalic and atraumatic. -Right Ear: External ear normal. No mastoid erythema -Left Ear: External ear normal. No mastoid erythema -Mouth/Throat: The oropharynx is clear and moist. No trismus in the jaw. No dental abscesses or uvula swelling. No oropharyngeal exudate or tonsillar abscesses. NECK: Normal range of motion. Neck supple. No JVD present. No tracheal deviation and normal range of motion present. CV: Normal rate, regular rhythm, normal heart sounds and intact distal pulses. There is no peripheral edema. Palpable radial pulses bue. PULM/CHEST: Effort normal and breath sounds normal. No respiratory distress. No stridor. She has no wheezes. She has no rales. -Chest Wall: She exhibits no tenderness. ABD: The abdomen is soft. Bowel sounds are normal. She has no distension. No mass is present. There is no tenderness. There is no rebound, no guarding, no Brody's sign and no tenderness at McBurney's point. Rovsig negative MUSC/SKEL: Normal range of motion. There is no peripheral edema, tenderness or deformity. NEURO: Motor and sensation grossly intact. SKIN: Skin is warm and dry. She is not diaphoretic. PSYCH: She has a normal mood and affect. Behavior is normal. Judgment and thought content normal. Course Course 1817: The patient was evaluated in room C4. A complete history and physical exam was performed Cardiac monitoring: An order was placed for continuous cardiac monitoring. The monitor shows a rate of 90 with sinus rhythm interpreted by me 2034: Patient remains hypotensive. No tachycardia. Another liter of fluid ordered for the patient. Labs show white blood cell count 7.56. Hemoglobin 7.1. Sodium 128. Lactic acid within normal limits. CT of the abdomen pelvis shows moderate wall thickening of the small bowel consistent with a high-grade enteritis. Patient is refusing to give urine or stool sample until he is giving an orange juice and the boost that he is demanding to drink. Discussed the case with Dr. Pio Puga and the hospitalist and she will evaluate the patient for admission Administered Medications Sodium Chloride (Nss) 1,000 mls @ 999 mls/hr IV .Q1H1M ONE Stop: 11/06/23 21:39 Last Admin: 11/06/23 21:09 Dose: 999 mls/hr Documented By: HAROLDO Discontinued Medications Sodium Chloride (Nss) 1,000 mls @ 999 mls/hr IV .Q1H1M ONE Stop: 11/06/23 19:34 Last Infusion: 11/06/23 20:18 Dose: Infused Documented By: Admin: 11/06/23 19:19 Dose: 999 mls/hr Documented By: MIKE Ioversol (Optiray 320 100ml) 93 ml IV ONCE ONE Stop: 11/06/23 19:35 Last Admin: 11/06/23 19:34 Dose: 93 ml Documented By: SHANNA Medical Decision Making Laboratory Data Attestation: I reviewed the patient's lab results. 11/06/23 16:06 11/06/23 16:06 Lab Results 11/06/23 11/06/23 Range/Units 16:06 20:30 WBC 7.56 (4.8-10.8) K/ul RBC 3.76 L (4.70-6.10) M/uL Hgb 7.1 L (14.0-18.0) g/dl Hct 24.0 L (42.0-52.0) % MCV 63.8 L (80.0-100.0) fL MCH 18.9 L (25.0-34.0) pg MCHC 29.6 L (32.0-36.0) g/dL RDW Std Deviation 44.4 (36.4-46.3) fL RDW Coeff of Brody 19.8 H (11.5-14.5) % Plt Count 360 (130-400) K/uL MPV 9.2 L (9.4-12.4) fL Immature Gran % (Auto) 1.6 % Neut % (Auto) 84.2 % Lymph % (Auto) 10.7 % [place] % (Auto) 2.6 % Eos % (Auto) 0.5 % Baso % (Auto) 0.4 % Neut # (Auto) 6.36 (1.40-6.50) K/uL Lymph # (Auto) 0.81 L (1.20-3.40) K/uL [place] # (Auto) 0.20 (0.11-0.59) K/uL Eos # (Auto) 0.04 (0.00-0.50) K/uL Baso # (Auto) 0.03 (0.00-0.20) K/uL Immature Gran # (Auto) 0.12 (0.01-0.20) K/uL Toxic Vacuolation 1+ Polychromasia 1+ Microcytosis Present Tear Drop Cells 1+ Rouleaux 1+ Sodium 128 L (136-145) mmol/L Potassium 4.1 (3.5-5.1) mmol/L Chloride 97 L (98-107) mmol/L Carbon Dioxide 24 (21-32) mmol/L Anion Gap 7 (3-11) BUN 16 (6-23) mg/dl Creatinine 1.00 (0.6-1.4) mg/dl Est Cr Clr Drug Dosing Not Reportable Est GFR ( Amer) 107.9 ml/min Est GFR (Non-Af Amer) 93.1 ml/min BUN/Creatinine Ratio 16.0 (10-20) Glucose 95 (70-99(Fasting)) mg/dl Lactate 1.3 (0.4-2.0) mmol/L Calcium 8.4 L (8.6-10.3) mg/dl Total Bilirubin 0.2 (0.2-1.0) mg/dl AST 19 (13-39) U/L ALT 11 (7-52) U/L Alkaline Phosphatase 112 H (34-104) U/L Total Protein 8.3 (6.0-8.3) gm/dl Albumin 2.5 L (3.4-5.0) gm/dl Globulin 5.8 H (2.5-4.0) gm/dl Albumin/Globulin Ratio 0.4 L (0.9-2) Lipase 34 (11-82) U/L Imaging Data Radiologist's Impression: Abdomen/Pelvis CT 11/06/23 18:35 Exam(s): CT ABDOMEN + PELVIS With Contrast IV Amt: 93 ml opti 320 EXAM: CT Abdomen and Pelvis With Intravenous Contrast CLINICAL HISTORY: Reason for exam: abd pain. TECHNIQUE: Axial computed tomography images of the abdomen and pelvis with intravenous contrast. CTDI is 8.5 mGy and DLP is 409.92 mGy-cm. Automated exposure control was utilized for the study. A dose lowering technique was utilized adhering to the principles of ALARA. CONTRAST: Patient received 93 ml opti 320 of IV contrast COMPARISON: No relevant prior studies available. FINDINGS: Lung bases: Unremarkable. No mass. No consolidation. ABDOMEN: Liver: Unremarkable. No mass. Gallbladder and bile ducts: Unremarkable. No calcified stones. No ductal dilation. Pancreas: Unremarkable. No mass. No ductal dilation. Spleen: Unremarkable. No splenomegaly. Adrenals: Unremarkable. No mass. Kidneys and ureters: Nonobstructing 3 mm RIGHT mid pole renal stone. Stomach and bowel: Moderate wall thickening of small bowel, consistent with high-grade enteritis. Moderate fecal retention. No acute diverticulitis. No small bowel obstruction. No free air. PELVIS: Appendix: No findings to suggest acute appendicitis. Bladder: Unremarkable. No mass. Reproductive: Unremarkable as visualized. ABDOMEN and PELVIS: Intraperitoneal space: See above. Bones/joints: No acute fracture. No dislocation. Soft tissues: Anasarca. Vasculature: Unremarkable. No abdominal aortic aneurysm. Lymph nodes: Unremarkable. No enlarged lymph nodes. IMPRESSION: Moderate wall thickening of small bowel, consistent with high-grade enteritis. Electronically signed by: Álvaro Hernández MD 11/06/23 19:56 PM ECG Data Attestation: I personally reviewed and interpreted this ECG as follows: Rate (beats per minute): 108 Rhythm: + sinus tachycardia ECG Intervals/blocks: + Normal QT-c ECG ST segments: + Normal ST segments Additional Comments: QRS 72 MDM Narrative 1818: The patient was evaluated in room C4. A complete history and physical exam was performed Cardiac monitoring: An order was placed for continuous cardiac monitoring. The monitor shows a rate of 90 with sinus rhythm interpreted by ne 2035: Patient remains hypotensive. No tachycardia. Another liter of fluid ordered for the patient. Labs show white blood cell count 7.56. Hemoglobin 7.1. Sodium 128. Lactic acid within normal limits. CT of the abdomen pelvis shows moderate wall thickening of the small bowel consistent with a high-grade enteritis. Patient is refusing to give urine or stool sample until he is giving an orange juice and the boost that he is demanding to drink. Discussed the case with Dr. Pio Puga and the hospitalist and she will evaluate the patient for admission Impression & Plan Acute hyponatremia, Anemia, Abdominal pain Discharge Plan Visit Data Chief Complaint: Hypotension Stated Complaint: ABD PAIN, DEHYDRATION, LOW BP ED Provider: Surya Londono Discharge Problem: Acute hyponatremia, Anemia, Abdominal pain Patient Disposition: Admitted As Inpatient Forms Stand Alone Forms: [facility] Prescriptions Prescriptions: No Action guaifenesin 100 mg/5 mL liquid 200 mg PO Q4H PRN (Reason: Cough) Biktarvy 30-120-15 mg tablet 1 tab PO DAILY Rx Instructions: STRENGTH NOT LISTED ON MEDS LIST sulfamethoxazole-trimethoprim [Bactrim DS] 800-160 mg Tablet 1 tab PO DAILY ergocalciferol (vitamin D2) [Drisdol] 1,250 mcg (50,000 unit) Capsule 50,000 unit PO WK Rx Instructions: [facility] cholecalciferol (vitamin D3) 25 mcg (1,000 unit) Tablet 25 mcg PO DAILY folic acid 1 mg Tablet 1 mg PO DAILY Qty: 30 0RF Incruse Ellipta 62.5 mcg/actuation Blister With Device 1 inh inhalation DAILY Qty: 1 0RF cyanocobalamin (vitamin B-12) [Vitamin B-12] 1,000 mcg/mL Solution 1,000 mcg IM .Q2WKS Rx Instructions: TUESDAYS ethambutol [Myambutol] 100 mg Tablet 200 mg PO DAILY Rx Instructions: TOTAL DOSE 600 MG--TAKES WITH 400 MG TAB. brimonidine 0.15 % Drops 1 drp OPL BID difluprednate [Durezol] 0.05 % Drops 1 drp OPB QID dicyclomine 10 mg capsule 10 mg PO BID PRN (Reason: ABD PAIN NEEDED) Rx Instructions: MUST OBSERVE PT TAKING THIS MED. ethambutol [Myambutol] 400 mg Tablet 400 mg PO DAILY Rx Instructions: TOTAL DOSE 600 MG--TAKES WITH 2-100 MG TABS. azithromycin 500 mg Tablet 500 mg PO DAILY cholestyramine (with sugar) [Questran] 4 gram Powder In Packet 4 g PO BID Rx Instructions: administer w/meal; avoid other meds within 1hr before or 4-6hr after dose Referrals Referrals: Tonya ORTIZ [Primary Care Provider] - Discharge Problem: Anemia Qualifiers: Anemia type: unspecified type Qualified Code(s): D64.9 - Anemia, unspecified Abdominal pain Qualifiers: Abdominal location: unspecified location Qualified Code(s): R10.9 - Unspecified abdominal pain
--- NOTE | 2023-11-06 21:46 | History & Physical Report ---
Date of Service November 06, 2023 Assessment & Plan (1) Abdominal pain: Plan: 43yo male with history of HIV (CD4 count unknown, on HAART therapy with Biktarvy) presenting with abdominal pain and loose stools. 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 Would assume that he has a very low CD4 count - possibly even <50 given the ongoing MAC infection. Diffuse enteritis noted on CT imaging. Patient has had no further stool output. Patient is incarcerated - denies contact with any ill individuals (I did, however, admit a patient from the same correctional facility earlier in the week with Salmonella enteritis) -Admit to medical -Check stool Biofire panel, C.diff and ova and parasites -Continue IV hydration with LR at 125mL/hr x 3L -Will hold Cholestyramine for now pending further workup -Tylenol PRN pain -Zofran PRN nausea (2) HIV (human immunodeficiency virus infection): Plan: Unknown CD4 count or viral load. Assume values are low given patient's prophylaxis and current MAC infection - AIDS defining illness -Follow cultures sent from the ER -Continue home Bictarvy - guards will need to bring this from the assisted tomorrow and have it verified by pharmacy -Check CD4 count and Viral load -Obtain records from [facility] -Continue Azithromycin and Bactrim for prophylaxis -Continue Ethambutol for MAC treatment (3) Anemia: Plan: Hgb=7.1. Patient with longstanding history of anemia. He has undergone workup at outside facilities and reports most recently having a bone marrow biopsy performed at [facility] (maybe [facility]?). Results are still pending. Possibly secondary to MAC infection -Follow H/H -Transfuse for active bleeding, symptomatic anemia or Hgb <7 (4) Hypotension: Plan: Low blood pressure noted at outside facility and has persisted here. Has received IVF with minimal improvement -Continue IVF with LR at 125mL/hr -Check cortisol -Blood transfusion if needed as discussed above History of Present Illness Chief Complaint: abdominal pain Primary Care Provider: [facility] Margarito Arias is a 43yo male inmate at [facility] presenting tith hypotension and abdominal pain. Patient with history of HIV (Unknown last CD4 c ount, VL reportedly undetectable, on HAART Therapy with Bictarvy as well as prophylaxis with Azithromycin and Bactrim). 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 Patient had a Telemedicine visit today in preparation for his followup visit with Infectious Disease. He was noted to have low blood pressure 80's/50's. He has had appx 1 week of abdominal pain and swelling. His pain started in the RLQ then spread diffusely throughout the abdomen. Pain was constant and severe. He had some abdominal distention and bloating as well. He reports poor appetite and decreased oral intake over the last week. He was having soft BMs and denies watery diarrhea or blood in stools (although he doesn't routinely examine his stools). No report of nausea or vomiting. No fever, chills, cough, chest pain or shortness of breath. No back pain or urinary complaints. No sick contacts. He reports not taking his medications for approximately 1 week. He reports that over the last 1-2 days his symptoms have actually been improving - he has less abdominal pain and distention and has return of his appetite. He has been able to eat without difficulty Patient with longstanding history of anemia. He denies blood loss. He was told that this was secondary to iron deficiency and was previously on PO and IV iron infusions. He reports that his blood counts never improved with the iron treatment. Was told that he is not absorbing the iron. He denies acute blood loss. He had a bone marrow biopsy recently performed at [facility] (or [facility], he does not recall) and is still waiting for the results. Allergies Allergy/AdvReac Type Severity Reaction Status Date / Time No Known Allergies Allergy Verified 11/06/23 19:06 Home Medications Medication Instructions Recorded Confirmed Type cholecalciferol (vitamin D3) 25 25 mcg PO DAILY 05/09/23 11/06/23 History mcg (1,000 unit) tablet ergocalciferol (vitamin D2) 1,250 50,000 unit PO WK 05/09/23 11/06/23 History mcg (50,000 unit) capsule (Drisdol) sulfamethoxazole 800 1 tab PO DAILY 05/09/23 11/06/23 History mg-trimethoprim 160 mg tablet (Bactrim DS) folic acid 1 mg tablet 1 mg PO DAILY #30 tabs 05/30/23 11/06/23 Rx umeclidinium 62.5 mcg/actuation 1 inh inhalation DAILY #1 inhaler 05/30/23 11/06/23 Rx blister powder for inhalation (Incruse Ellipta) bictegravir 30 mg-emtricitabine 1 tab PO DAILY 07/18/23 11/06/23 History 120 mg-tenofovir alafenam 15 mg tablet (Biktarvy) guaifenesin 100 mg/5 mL oral liquid 200 mg PO Q4H PRN Cough 07/18/23 11/06/23 History azithromycin 500 mg tablet 500 mg PO DAILY 11/06/23 11/06/23 History brimonidine 0.15 % eye drops 1 drp OPL BID 11/06/23 11/06/23 History cholestyramine (with sugar) 4 gram 4 g PO BID 11/06/23 11/06/23 History powder for susp in a packet (Questran) cyanocobalamin (vitamin B-12) 1,000 mcg IM .Q2WKS 11/06/23 11/06/23 History 1,000 mcg/mL injection solution dicyclomine 10 mg capsule 10 mg PO BID PRN ABD PAIN NEEDED 11/06/23 11/06/23 History difluprednate 0.05 % eye drops 1 drp OPB QID 11/06/23 11/06/23 History (Durezol) ethambutol 100 mg tablet 200 mg PO DAILY 11/06/23 11/06/23 History ethambutol 400 mg tablet 400 mg PO DAILY 11/06/23 11/06/23 History (Myambutol) Past Med/Surg History Medical History Hyperlipemia Vision loss of left eye LVH (left ventricular hypertrophy) Abnormal CT scan, chest Iron deficiency anemia Vitamin D deficiency HIV (human immunodeficiency virus infection) Social History Smoking Status: Never smoker Second Hand Exposure: Yes; Do You Dip or Chew Tobacco: No; Hx Alcohol Use: Yes Alcohol type: wine Hx Substance Use: No Preferred Language: Romanian Communication Ability: Effective Map And Chart Mounter Required: No Beliefs That Will Affect Care: Cultural Cultural Beliefs: does not eat pork Current Living Situation: Other Feels Safe at Home: Yes Assistive Devices: None Review of Systems Review of Systems: All systems reviewed & are unremarkable except as noted in HPI & below Physical Exam Physical Exam: General: cachectic appearing male patient resting comfortably, NAD, AA&O x 4 Skin: warm, dry, intact, fleshy lesion noted on right face, nontender HEENT: NC/AT, PERRL, EOMI, anicteric sclera, conjunctiva without injection, external ear normal to inspection and nontender, nares patent, dry mucus membranes, dentition intact, no oropharyngeal lesions, no thrush, neck supple, trachea midline, no LAD, no thyromegaly, no JVD Heart: +S1/S2, regular, no m/r/g Lungs: equal air entry bilaterally, no rales/rhonchi/wheezes Abd: +BS, soft, mildly distended, tympanic, tender to palpation diffusely with voluntary guarding, some subcutaneous nodules palpated on abdominal wall Ext: warm, 2+ pulses in UE/LE bilaterally, no clubbing/cyanosis or edema Neuro: nonfocal, patient AA&O x 4, speech intact, no facial droop, moving all extremities on command with equal strength 5/5 Results & Data Results & Data Vital Signs (Past 12 Hours) Vital Signs Temp Pulse Pulse Resp BP BP Pulse Ox 11/06/23 20:00 86 20 91/56 L 96 11/06/23 19:24 85 11/06/23 18:21 83 18 92/69 L 100 11/06/23 18:21 100 11/06/23 15:48 36.6 C 106 H 18 95/61 L 100 O2 Del Method 11/06/23 20:00 Room Air 11/06/23 19:24 11/06/23 18:21 11/06/23 18:21 Room Air 11/06/23 15:48 Laboratory Results Laboratory Results WBC 7.56 K/ul (4.8-10.8) 11/06/23 16:06 RBC 3.76 M/uL (4.70-6.10) L 11/06/23 16:06 Hgb 7.1 g/dl (14.0-18.0) L 11/06/23 16:06 Hct 24.0 % (42.0-52.0) L 11/06/23 16:06 MCV 63.8 fL (80.0-100.0) L 11/06/23 16:06 MCH 18.9 pg (25.0-34.0) L 11/06/23 16:06 MCHC 29.6 g/dL (32.0-36.0) L 11/06/23 16:06 RDW Std Deviation 44.4 fL (36.4-46.3) 11/06/23 16:06 RDW Coeff of Brody 19.8 % (11.5-14.5) H 11/06/23 16:06 Plt Count 360 K/uL (130-400) 11/06/23 16:06 MPV 9.2 fL (9.4-12.4) L 11/06/23 16:06 Immature Gran % (Auto) 1.6 % 11/06/23 16:06 Neut % (Auto) 84.2 % 11/06/23 16:06 Lymph % (Auto) 10.7 % 11/06/23 16:06 [facility] % (Auto) 2.6 % 11/06/23 16:06 Eos % (Auto) 0.5 % 11/06/23 16:06 Baso % (Auto) 0.4 % 11/06/23 16:06 Neut # (Auto) 6.36 K/uL (1.40-6.50) 11/06/23 16:06 Lymph # (Auto) 0.81 K/uL (1.20-3.40) L 11/06/23 16:06 [facility] # (Auto) 0.20 K/uL (0.11-0.59) 11/06/23 16:06 Eos # (Auto) 0.04 K/uL (0.00-0.50) 11/06/23 16:06 Baso # (Auto) 0.03 K/uL (0.00-0.20) 11/06/23 16:06 Immature Gran # (Auto) 0.12 K/uL (0.01-0.20) 11/06/23 16:06 Toxic Vacuolation 1+ 11/06/23 16:06 Polychromasia 1+ 11/06/23 16:06 Microcytosis Present 11/06/23 16:06 Tear Drop Cells 1+ 11/06/23 16:06 Rouleaux 1+ 11/06/23 16:06 Sodium 128 mmol/L (136-145) L 11/06/23 16:06 Potassium 4.1 mmol/L (3.5-5.1) 11/06/23 16:06 Chloride 97 mmol/L (98-107) L 11/06/23 16:06 Carbon Dioxide 24 mmol/L (21-32) 11/06/23 16:06 Anion Gap 7 (3-11) 11/06/23 16:06 BUN 16 mg/dl (6-23) 11/06/23 16:06 Creatinine 1.00 mg/dl (0.6-1.4) 11/06/23 16:06 Est Cr Clr Drug Dosing Not Reportable 11/06/23 16:06 Est GFR ( Amer) 107.9 ml/min 11/06/23 16:06 Est GFR (Non-Af Amer) 93.1 ml/min 11/06/23 16:06 BUN/Creatinine Ratio 16.0 (10-20) 11/06/23 16:06 Glucose 95 mg/dl (70-99(Fasting)) 11/06/23 16:06 Osmolality 272 mOsm/kg (280-300) L 11/06/23 16:06 Lactate 1.3 mmol/L (0.4-2.0) 11/06/23 20:30 Calcium 8.4 mg/dl (8.6-10.3) L 11/06/23 16:06 Phosphorus 3.7 mg/dl (2.5-4.9) 11/06/23 16:06 Magnesium 1.6 mg/dl (1.7-2.4) L 11/06/23 16:06 Total Bilirubin 0.2 mg/dl (0.2-1.0) 11/06/23 16:06 AST 19 U/L (13-39) 11/06/23 16:06 ALT 11 U/L (7-52) 11/06/23 16:06 Alkaline Phosphatase 112 U/L (34-104) H 11/06/23 16:06 Total Protein 8.3 gm/dl (6.0-8.3) 11/06/23 16:06 Albumin 2.5 gm/dl (3.4-5.0) L 11/06/23 16:06 Globulin 5.8 gm/dl (2.5-4.0) H 11/06/23 16:06 Albumin/Globulin Ratio 0.4 (0.9-2) L 11/06/23 16:06 Lipase 34 U/L (11-82) 11/06/23 16:06 Urine Color Yellow 11/06/23 21:05 Urine Appearance Clear (Clear) 11/06/23 21:05 Urine pH 5.5 (4.5-7.5) 11/06/23 21:05 Ur Specific [place] > 1.045 (1.000-1.030) H 11/06/23 21:05 Urine Protein Trace (Negative) H 11/06/23 21:05 Urine Glucose (UA) Negative (Negative) 11/06/23 21:05 Urine Ketones Negative (Negative) 11/06/23 21:05 Urine Blood Negative (Negative) 11/06/23 21:05 Urine Nitrite Negative (Negative) 11/06/23 21:05 Urine Bilirubin Negative (Negative) 11/06/23 21:05 Urine Urobilinogen Negative (Negative) 11/06/23 21:05 Ur Leukocyte Esterase Negative (Negative) 11/06/23 21:05 Urine WBC (Auto) 0-5 /hpf (0-5) 11/06/23 21:05 Urine RBC (Auto) 0-2 /hpf (0-2) 11/06/23 21:05 U Hyaline Cast (Auto) 11-20 /lpf (0-2) H 11/06/23 21:05 U Epithel Cells (Auto) 0-2 /hpf (0-2) 11/06/23 21:05 Urine Bacteria (Auto) None Seen (None Seen) 11/06/23 21:05 Granular Casts Present /lpf (None Prsent) A 11/06/23 21:05 Urine Osmolality 595 mOsm/kg (500-800) 11/06/23 21:05 Ur Random Sodium 75 mmol/L 11/06/23 21:05 Impressions Abdomen/Pelvis CT 11/06/23 18:35 Exam(s): CT ABDOMEN + PELVIS With Contrast IV Amt: 93 ml opti 320 EXAM: CT Abdomen and Pelvis With Intravenous Contrast CLINICAL HISTORY: Reason for exam: abd pain. TECHNIQUE: Axial computed tomography images of the abdomen and pelvis with intravenous contrast. CTDI is 8.5 mGy and DLP is 409.92 mGy-cm. Automated exposure control was utilized for the study. A dose lowering technique was utilized adhering to the principles of ALARA. CONTRAST: Patient received 93 ml opti 320 of IV contrast COMPARISON: No relevant prior studies available. FINDINGS: Lung bases: Unremarkable. No mass. No consolidation. ABDOMEN: Liver: Unremarkable. No mass. Gallbladder and bile ducts: Unremarkable. No calcified stones. No ductal dilation. Pancreas: Unremarkable. No mass. No ductal dilation. Spleen: Unremarkable. No splenomegaly. Adrenals: Unremarkable. No mass. Kidneys and ureters: Nonobstructing 3 mm RIGHT mid pole renal stone. Stomach and bowel: Moderate wall thickening of small bowel, consistent with high-grade enteritis. Moderate fecal retention. No acute diverticulitis. No small bowel obstruction. No free air. PELVIS: Appendix: No findings to suggest acute appendicitis. Bladder: Unremarkable. No mass. Reproductive: Unremarkable as visualized. ABDOMEN and PELVIS: Intraperitoneal space: See above. Bones/joints: No acute fracture. No dislocation. Soft tissues: Anasarca. Vasculature: Unremarkable. No abdominal aortic aneurysm. Lymph nodes: Unremarkable. No enlarged lymph nodes. IMPRESSION: Moderate wall thickening of small bowel, consistent with high-grade enteritis. Electronically signed by: Álvaro Hernández MD 11/06/23 19:56 PM PG Care Time/CCT Total # of Minutes Spent Total Time Spent with Patient: Total time spent is greater than 50% in coordination of care (as documented) at patient's floor/unit and/or counseling patient: Coding Level of Care Code 60021 INT INP/OBS CARE 3/75MIN Diagnoses Abdominal pain R10.9 Abdominal location: unspecified location HIV (human immunodeficiency virus infection) B20 Anemia D64.9 Anemia type: unspecified type Hypotension I95.9 Hypotension type: unspecified hypotension type (1) Abdominal pain Abdominal location: unspecified location Qualified Code(s): R10.9 - Unspecified abdominal pain (3) Anemia Anemia type: unspecified type Qualified Code(s): D64.9 - Anemia, unspecified (4) Hypotension Hypotension type: unspecified hypotension type Qualified Code(s): I95.9 - Hypotension, unspecified
[2023-11-06 21:53] LABS: Appearance Urine Clear (Clear); Bacteria Urine Automated None Seen (None Seen); Bilirubin Urine Negative (Negative); Blood Urine Negative (Negative); Color Urine Yellow; Epithelial Cell Urine Auto 0-2 /hpf (0-2); Glucose Urine UA Negative (Negative); Granular Casts Urine Present /lpf (None Prsent); Ketones Urine Negative (Negative); Leukocyte Esterase Urine Negative (Negative); Nitrite Urine Negative (Negative); Protein Urine Trace (Negative); RBC Urine Automated 0-2 /hpf (0-2); Specific Gravity Urine > 1.045 (1.000-1.030); Urobilinogen Urine Negative (Negative); WBC Urine Automated 0-5 /hpf (0-5); pH Urine 5.5 (4.5-7.5)
[2023-11-06] MEDS ORDERED: ONDANSETRON INJ 2 MG/ML 2 ML VIAL IV PRN (22:56)
[2023-11-06] MEDS ORDERED: DICYCLOMINE HCL 10 MG CAP PO PRN (22:56)
[2023-11-06] MEDS ORDERED: ACETAMINOPHEN 325 MG TAB PO PRN (22:56)
[2023-11-06 23:24] LABS: Magnesium 1.6 mg/dl (1.7-2.4); Phosphorus 3.7 mg/dl (2.5-4.9)
[2023-11-06] MEDS: LACTATED RINGER'S 1,000 ML IV SCH (23:42)
[2023-11-07 05:42] LABS: Mean Corpuscular Volume 63.3 fL (80.0-100.0); Mean Platelet Volume 8.7 fL (9.4-12.4); Platelet Count 242 K/uL (130-400); RDW Standard Deviation 45.4 fL (36.4-46.3); Red Blood Count 3.16 M/uL (4.70-6.10); White Blood Count 6.85 K/ul (4.8-10.8)
[2023-11-07 05:49] LABS: Albumin Level 1.9 gm/dl (3.4-5.0); Bilirubin Direct 0.1 mg/dl (0-0.2); Bilirubin,Total 0.2 mg/dl (0.2-1.0); Calcium 7.8 mg/dl (8.6-10.3); Creatinine Clr Calc Pharmacy 75.4 ml/min; Est GFR (African American) 107.9 ml/min; Est GFR (Non-African American) 93.1 ml/min; Potassium 3.9 mmol/L (3.5-5.1); Total Protein 6.5 gm/dl (6.0-8.3)
[2023-11-07] MEDS ORDERED: SODIUM CHLORIDE 0.9% 250 ML IV PRN (05:55)
[2023-11-07] MEDS: ETHAMBUTOL HCL 400 MG TAB PO SCH (08:48)
[2023-11-07] MEDS: AZITHROMYCIN 250 MG TAB PO SCH (08:48)
[2023-11-07] MEDS: ETHAMBUTOL HCL 100 MG PO SCH (08:48)
[2023-11-07] MEDS: SULFAMETHOXAZOLE/TRIMETHOPRIM DS 800/160MG TAB PO SCH (08:49)
[2023-11-07] MEDS: FOLIC ACID 1 MG TAB PO SCH (08:50)
[2023-11-07] MEDS: BRIMONIDINE TARTRATE-P 0.15% 5 ML BTL OPL SCH (08:51)
[2023-11-07] MEDS: UMECLIDINIUM BROMIDE 62.5MCG/BLISTER 7 PUFFS/INHALER INH SCH (10:20)
--- NOTE | 2023-11-07 11:50 | Infectious Disease Consult ---
Date of Consultation November 07, 2023 Assessment & Plan (1) Enteritis: (2) HIV (human immunodeficiency virus infection): (3) Abdominal pain: Plan 43yo M with h/o incarcerated M with HIV (CD4 104 in Jul 2023, VL UD in 04/2023, adherent to Biktarvy and Bactrim ppx), vitamin D deficiency, FREDIS, PJP pneumonia (2019), prior diagnosis of MAC PNA, admission 05/09-05/30/23 with cough x 1mo f/w disseminated MAC, currently tx with azithromycin and ethambutol (only took 2 doses in past 2 wks) who presented on 11/05 with abdominal pain/distention x 1wk with soft stools (improving), decrease PO intake, and hypotension. Here, he has been afebrile, hypotensive. WBC wnl, anemia to 6. Cr 1. LFT wnl. UA negative. Stool studies sent. HIV VL pending. CTAP with moderate wall thickening of small bowel c/w high grade enteritis. Clinically he notes improvement in his abdominal symptoms. CT with findings of enteritis, which could have many causes in HIV. No adenopathy was noted on imaging making MAC less likely, though still possible given disseminated disease and noncompliance with ethambutol. He is still having ongoing hypotension which could be hypovolemia, in addition to anemia noted on labs. If he continues to be hypotensive despite fluids, would add empiric GI coverage with either CTX + flagyl, or zosyn, though clinically he has noted improvement in his symptoms over the past week. Stool studies already sent as have the cultures. Would ensure that he resumes home meds. Given his groin adenopathy/rash, Im also going to add urine GC-chlamydia. # Enteritis # Groin rash/lymphadenopathy - improving # HIV/AIDS # h/o disseminated MAC # h/o PJP PNA - Lauryn ordered urine GC-chlamydia - follow up blood cx - follow up on stools studies and blood cultures - resume biktarvy I spoke to pharmacy who will be coordinating - resume home dose of azithromycin and ethambutol (also discussed with pharmacy who will adjust doses) - continue bactrim ppx - if he develops sepsis and clinical worsening, then can add abx coverage for GI source (ie CTX + flagyl or zosyn) ID will continue to follow. If questions or concerns, contact Infectious Disease Call Center . Jessica Thompson MD [facility], Division of Infectious Diseases [facility]: [phone] Consultation Information Consultation was provided via telemedicine using two-way real-time interactive telecommunication between the patient and the telemedicine provider. For the duration of the visit, the provider was performing the assessment from a different facility than the patient. This includesuse of bluetooth stethoscope forauscultationperformed by the telepresenter that the telemedicine provider can hear if described in the physical exam. Pharmacy Service Associate contact information: Please call [facility] Call Center [phone]. (Phone Number For Physician Use Only) After establishing a telemedicine visit, patient was: Patient was verified with two unique identifiers, Patient/authorized rep acknowledged consent and understanding and Gave permission to continue telehealth session Time Spent with Patient: Initial => 75 min History of Present Illness Reason for Consultation: HIV, possible disseminated MAC Attending Physician: Stephanie Brock MD History of Present Illness 43yo M with h/o incarcerated M with HIV (CD4 104 in Jul 2023, VL UD in 04/2023, adherent to Biktarvy and Bactrim ppx), vitamin D deficiency, FREDIS, PJP pneumonia (2019), prior diagnosis of MAC PNA, admission 05/09-05/30/23 with cough x 1mo c/f disseminated MAC, currently tx with azithromycin and ethambutol who presented on 11/05 with abdominal pain and hypotension. He has had pain in his abdomen x 1 week with soft stools, no diarrhea. He also noted having swelling of his abdomen over this time. He has had decreased PO intake. No report of nausea or vomiting. No fever, chills, cough, chest pain or shortness of breath. No back pain or urinary complaints. No sick contacts. He has only taken ethambutol once this week and once last week. He has been taking his other medications including biktarvy. Also note he has had groin pain and lymph node swelling that has also been sore, this is improving today. When he was seen for follow up at the skilled nursing, his BP was low so he was sent to the ED. He says his symptoms have been improving in the past few days and it was only his low BP that was concerning. Note he has some h/o with issues on ethambutol causing left vision changes and he self-discontinued in the past for his MAC and never finished 1yr therapy and was supposed to see ophtho per our notes when he was admitted last year. He was discharged in May 2023 while waiting for f/u of AFB cultures to determine if it was TB or MAC and seems he has been started treatment with azithro and ethambutol by outside provider for disseminated MAC. Here, he has been afebrile, hypotensive. WBC wnl, anemia to 6. Cr 1. LFT wnl. UA negative. Stool studies sent. HIV VL pending. CTAP with moderate wall thickening of small bowel c/w high grade enteritis. Allergies Allergy/AdvReac Type Severity Reaction Status Date / Time No Known Allergies Allergy Verified 11/06/23 19:06 Home Medications Medication Instructions Recorded Confirmed Type cholecalciferol (vitamin D3) 25 25 mcg PO DAILY 05/09/23 11/06/23 History mcg (1,000 unit) tablet ergocalciferol (vitamin D2) 1,250 50,000 unit PO WK 05/09/23 11/06/23 History mcg (50,000 unit) capsule (Drisdol) sulfamethoxazole 800 1 tab PO DAILY 05/09/23 11/06/23 History mg-trimethoprim 160 mg tablet (Bactrim DS) folic acid 1 mg tablet 1 mg PO DAILY #30 tabs 05/30/23 11/06/23 Rx umeclidinium 62.5 mcg/actuation 1 inh inhalation DAILY #1 inhaler 05/30/23 11/06/23 Rx blister powder for inhalation (Incruse Ellipta) bictegravir 30 mg-emtricitabine 1 tab PO DAILY 07/18/23 11/06/23 History 120 mg-tenofovir alafenam 15 mg tablet (Biktarvy) guaifenesin 100 mg/5 mL oral liquid 200 mg PO Q4H PRN Cough 07/18/23 11/06/23 History azithromycin 500 mg tablet 500 mg PO DAILY 11/06/23 11/06/23 History brimonidine 0.15 % eye drops 1 drp OPL BID 11/06/23 11/06/23 History cholestyramine (with sugar) 4 gram 4 g PO BID 11/06/23 11/06/23 History powder for susp in a packet (Questran) cyanocobalamin (vitamin B-12) 1,000 mcg IM .Q2WKS 11/06/23 11/06/23 History 1,000 mcg/mL injection solution dicyclomine 10 mg capsule 10 mg PO BID PRN ABD PAIN NEEDED 11/06/23 11/06/23 History difluprednate 0.05 % eye drops 1 drp OPB QID 11/06/23 11/06/23 History (Durezol) ethambutol 100 mg tablet 200 mg PO DAILY 11/06/23 11/06/23 History ethambutol 400 mg tablet 400 mg PO DAILY 11/06/23 11/06/23 History (Myambutol) Patient History Medical History Hyperlipemia Vision loss of left eye LVH (left ventricular hypertrophy) Abnormal CT scan, chest Iron deficiency anemia Vitamin D deficiency HIV (human immunodeficiency virus infection) Social History Smoking Status: Never smoker Second Hand Exposure: No; Do You Dip or Chew Tobacco: No; Hx Alcohol Use: No Hx Substance Use: No Preferred Language: Irish Communication Ability: Effective Human Resource Statistician Required: No Beliefs That Will Affect Care: Spiritism Spiritism Beliefs: Restorationist Current Living Situation: Other Current Living Situation Comment: Prisoner at [facility] Feels Safe at Home: Yes Assistive Devices: None Review of System 10-point review of systems reviewed and are negative except for as above. Physical Exam Physical Exam: General: Awake, alert, no acute distress HEENT: NC/AT, EOMI, mmm Neck: supple Lungs: respirations non-labored Heart: nl peripheral perfusion Abdomen: soft, tender Ext: no LE edema : groin and inner thighs with small maculopapular lesions - improving Neuro: O x 3 Results & Data Vital Signs (Past 12 Hours) Vital Signs Temp Pulse Pulse Resp BP BP Pulse Ox 11/07/23 11:32 36.8 C 80 20 88/54 L 98 11/07/23 11:15 36.8 C 96 H 16 91/57 L 98 11/07/23 10:47 36.5 C 89 18 83/52 L 97 11/07/23 10:30 36.7 C 87 18 94/56 L 94 11/07/23 07:00 36.5 C 85 18 95/60 L 100 11/07/23 06:21 78 18 88/66 L 100 11/07/23 05:30 89/56 L 100 11/07/23 05:00 96/60 L 11/07/23 04:30 89/54 L 100 11/07/23 04:00 95/55 L 99 11/07/23 03:48 89/54 L 100 11/07/23 03:30 89/61 L 100 11/07/23 03:00 91/54 L 99 11/07/23 02:30 87/62 L 98 11/07/23 02:27 90/57 L 98 11/07/23 02:00 89/55 L 97 11/07/23 01:30 83/50 L 98 11/07/23 01:00 90/55 L 98 11/07/23 00:30 83/49 L 98 11/07/23 00:00 83/48 L 97 O2 Del Method 11/07/23 11:32 11/07/23 11:15 11/07/23 10:47 11/07/23 10:30 11/07/23 07:00 Room Air 11/07/23 06:21 Room Air 11/07/23 05:30 11/07/23 05:00 11/07/23 04:30 11/07/23 04:00 11/07/23 03:48 11/07/23 03:30 11/07/23 03:00 11/07/23 02:30 11/07/23 02:27 11/07/23 02:00 11/07/23 01:30 11/07/23 01:00 11/07/23 00:30 11/07/23 00:00 Laboratory Results Labs reviewed Diagnostic Findings Imaging reviewed (3) Abdominal pain Abdominal location: unspecified location Qualified Code(s): R10.9 - Unspecified abdominal pain
[2023-11-07 12:03] LABS: Adenovirus F 40/41 PCR Not Detected (NotDetected); Astrovirus PCR Not Detected (NotDetected); Campylobacter PCR Not Detected (NotDetected); Cryptosporidium PCR Not Detected (NotDetected); Cyclospora cayetanensis PCR Not Detected (NotDetected); Entamoeba histolytica PCR Not Detected (NotDetected); Enteroaggregative E.coli(EAEC) Not Detected (NotDetected); Enteropathogenic E.coli (EPEC) Not Detected (NotDetected); Enterotoxigenic E.coli (ETEC) Not Detected (NotDetected); Giardia lamblia PCR Not Detected (NotDetected); Norovirus GI/GII PCR Not Detected (NotDetected); Plesiomonas shigelloides PCR Not Detected (NotDetected); Rotavirus A PCR Not Detected (NotDetected); Salmonella PCR Not Detected (NotDetected); Sapovirus PCR Not Detected (NotDetected); Shiga-like Toxin E.coli (STEC) Not Detected (NotDetected); Shigella/Enteroinvasive E.coli Not Detected (NotDetected); Vibrio cholerae PCR Not Detected (NotDetected); Vibrio species PCR Not Detected (NotDetected); Yersinia enterocolitica PCR Not Detected (NotDetected)
[2023-11-07] MEDS: ETHAMBUTOL HCL 400 MG TAB PO ONE (13:24)
--- NOTE | 2023-11-07 14:33 | Hospitalist Progress Note ---
Date of Service November 07, 2023 Assessment & Plan (1) Abdominal pain: Plan: History of HIV currently on HAART, incarcerated Presents with abdominal pain. Mild diffuse abdominal tenderness on exam CT scan showed evidence of diffuse enteritis Stool cultures, ova and parasite pending Continue his HAART therapy and also continue azithromycin, ethambutol, Bactrim GI has been consulted (2) HIV (human immunodeficiency virus infection): Plan: Patient admitted been compliant with his HIV HAART medications the past 1 year. Although there was a point in 2021 when he did not take his medications. Last CD4 count was 104 in July 2023, viral load was undetected in April 2023. Has had prior diagnosis of disseminated MAC. On azithromycin and ethambutol (takes 1000 mg) Order CT scan of the abdomen showing evidence of enteritis and abdominal pain, will consult infectious diseases. Appreciate recommendations. (3) Anemia: Plan: Presents with a hemoglobin of 6.0 patient with longstanding history of anemia. He has undergone workup at outside facilities and reports most recently having a bone marrow biopsy performed at [facility] (maybe [facility] Results are still pending. Possibly secondary to MAC infection Transfuse 1 unit of blood Recheck hemoglobin (4) Hypotension: Plan: Most likely hypovolemia due to anemia as well Will transfuse Continue IV saline Patient is comfortable Plan Continue to monitor in the hospital Full code DVT prophylaxis SCDs Admission and Anticipated Discharge Date Admission Date: November 06, 2023 Subjective Patient seen and examined in the emergency department, lying quietly in bed chronically ill looking but denies any acute chest pain but complains of some mild abdominal pain Review of Systems Review of Systems: All systems reviewed are negative, apart from the ones contained in the history. Physical Exam Physical Exam: The patient is awake, alert and oriented 3, chronically ill looking HEENT--PERRL, EOMI, mucous membranes and oropharynx mildly dry Neck--supple. No JVD. No bruits. Thyroid normal, trachea midline, no adenopat hy. Heart--normal S1 and S2. No murmurs, rubs or gallops. Lungs--clear bilaterally, no respiratory distress, no accessory muscle use. Abdomen--mild diffuse abdominal tenderness. Extremities--no cyanosis or clubbing. No edema. Dermatologic--normal skin turgor, normal color, no abnormal lymph nodes, no rash. Neurologic--cranial nerves II through XII grossly intact. Rheumatologic--normal range of motion. Psychiatric--normal affect. Results & Data Results & Data Vital Signs (Past 12 Hours) Vital Signs Temp Pulse Pulse Resp BP BP Pulse Ox 11/07/23 14:07 97.9 F 82 18 96/56 L 100 11/07/23 13:32 97.7 F 82 20 95/60 L 100 11/07/23 13:17 98.2 F 81 17 98/68 L 99 11/07/23 12:32 98.2 F 90 20 90/57 L 99 11/07/23 11:32 98.2 F 80 20 88/54 L 98 11/07/23 11:15 98.2 F 96 H 16 91/57 L 98 11/07/23 10:47 97.7 F 89 18 83/52 L 97 11/07/23 10:30 98.1 F 87 18 94/56 L 94 11/07/23 07:00 97.7 F 85 18 95/60 L 100 11/07/23 06:21 78 18 88/66 L 100 11/07/23 05:30 89/56 L 100 11/07/23 05:00 96/60 L 11/07/23 04:30 89/54 L 100 11/07/23 04:00 95/55 L 99 11/07/23 03:48 89/54 L 100 11/07/23 03:30 89/61 L 100 11/07/23 03:00 91/54 L 99 11/07/23 02:30 87/62 L 98 O2 Del Method 11/07/23 14:07 11/07/23 13:32 11/07/23 13:17 11/07/23 12:32 11/07/23 11:32 11/07/23 11:15 11/07/23 10:47 11/07/23 10:30 11/07/23 07:00 Room Air 11/07/23 06:21 Room Air 11/07/23 05:30 11/07/23 05:00 11/07/23 04:30 11/07/23 04:00 11/07/23 03:48 11/07/23 03:30 11/07/23 03:00 11/07/23 02:30 PG Care Time/CCT Total # of Minutes Spent Total Time Spent with Patient: Total time spent is greater than 50% in coordination of care (as documented) at patient's floor/unit and/or counseling patient: Coding Level of Care Code 22741 SUB INP/OBS CARE 2/35MIN Diagnoses Abdominal pain R10.9 Abdominal location: unspecified location HIV (human immunodeficiency virus infection) B20 Anemia D64.9 Anemia type: unspecified type Hypotension I95.9 Hypotension type: unspecified hypotension type Time Spent (min) 35 (1) Abdominal pain Abdominal location: unspecified location Qualified Code(s): R10.9 - Unspecified abdominal pain (3) Anemia Anemia type: unspecified type Qualified Code(s): D64.9 - Anemia, unspecified (4) Hypotension Hypotension type: unspecified hypotension type Qualified Code(s): I95.9 - Hypotension, unspecified
--- NOTE | 2023-11-07 16:13 | Electrocardiogram Report ---
Test Reason : Blood Pressure : / mmHG Vent. Rate : 108 BPM Atrial Rate : 108 BPM P-R Int : 130 ms QRS Dur : 072 ms QT Int : 334 ms P-R-T Axes : 073 080 074 degrees QTc Int : 447 ms Sinus tachycardia Otherwise normal ECG When compared with ECG of 09-MAY-2023 14:01, No significant change was found Confirmed by Gopi Alarcon ([id number]) on 11/07/2023 4:13:30 PM Referred By: [facility] Confirmed By:Gopi Alarcon
--- NOTE | 2023-11-07 16:22 | Gastrointestinal Consultation ---
Date of Consultation November 07, 2023 Assessment & Plan (1) Enteritis: -Continue with supportive care and monitoring -Would not opt for invasive endoscopic evaluation for his diarrhea unless his CD4 count is notably improved so as not to risk further infection Supervising Physician Co-Signing Physician Notes Agree with KARON Cast as above Interviewed and examined patient, and agree with above Abd: Soft, Tender throughout, distended, +BS Continue current therapy and supportive care Symptoms may be related to MAC infection Awaiting CD4 count Continue current therapy and supportive care. History of Present Illness Reason for Consultation: Enteritis Attending Physician: Stephnaie Brock MD History of Present Illness Patient is a 43 yo incarcerated male with PMH of HIV, chronic diarrhea, & MAC infection who presented with hypotension & abdominal pain. He is presently being treated for a MAC infection. He follows with ID for this as well as his HIV. CD4 count has been incredibly low in the past. A repeat is pending. He notes pain throughout multiple quadrants of his abdomen. He notes formed stools lately, but had been evaluated by GI for diarrhea in the past. He states that over the past few days he thinks stool was softer. He was to have an outpatient EGD/colonoscopy when CD4 count and MAC infection were addressed. This has not yet happened. Due to extreme anemia, he recently had a bone marrow biopsy. CT abd/pelvis showed an enteritis. Stool PCR negative. Allergies Allergy/AdvReac Type Severity Reaction Status Date / Time No Known Allergies Allergy Verified 11/06/23 19:06 Home Medications Medication Instructions Recorded Confirmed Type cholecalciferol (vitamin D3) 25 25 mcg PO DAILY 05/09/23 11/06/23 History mcg (1,000 unit) tablet ergocalciferol (vitamin D2) 1,250 50,000 unit PO WK 05/09/23 11/06/23 History mcg (50,000 unit) capsule (Drisdol) sulfamethoxazole 800 1 tab PO DAILY 05/09/23 11/06/23 History mg-trimethoprim 160 mg tablet (Bactrim DS) folic acid 1 mg tablet 1 mg PO DAILY #30 tabs 05/30/23 11/06/23 Rx umeclidinium 62.5 mcg/actuation 1 inh inhalation DAILY #1 inhaler 05/30/23 11/06/23 Rx blister powder for inhalation (Incruse Ellipta) bictegravir 30 mg-emtricitabine 1 tab PO DAILY 07/18/23 11/06/23 History 120 mg-tenofovir alafenam 15 mg tablet (Biktarvy) guaifenesin 100 mg/5 mL oral liquid 200 mg PO Q4H PRN Cough 07/18/23 11/06/23 History azithromycin 500 mg tablet 500 mg PO DAILY 11/06/23 11/06/23 History brimonidine 0.15 % eye drops 1 drp OPL BID 11/06/23 11/06/23 History cholestyramine (with sugar) 4 gram 4 g PO BID 11/06/23 11/06/23 History powder for susp in a packet (Questran) cyanocobalamin (vitamin B-12) 1,000 mcg IM .Q2WKS 11/06/23 11/06/23 History 1,000 mcg/mL injection solution dicyclomine 10 mg capsule 10 mg PO BID PRN ABD PAIN NEEDED 11/06/23 11/06/23 History difluprednate 0.05 % eye drops 1 drp OPB QID 11/06/23 11/06/23 History (Durezol) ethambutol 100 mg tablet 200 mg PO DAILY 11/06/23 11/06/23 History ethambutol 400 mg tablet 400 mg PO DAILY 11/06/23 11/06/23 History (Myambutol) Patient History Medical History Hyperlipemia Vision loss of left eye LVH (left ventricular hypertrophy) Abnormal CT scan, chest Iron deficiency anemia Vitamin D deficiency HIV (human immunodeficiency virus infection) Social History Smoking Status: Never smoker Second Hand Exposure: No; Do You Dip or Chew Tobacco: No; Tobacco Cessation Education Requested by Patient: No Hx Alcohol Use: No Hx Substance Use: No Preferred Language: Micronesian Communication Ability: Effective Aircraft Pilot Required: No Beliefs That Will Affect Care: Buddhism Buddhism Beliefs: Church Current Living Situation: Other Current Living Situation Comment: Prisoner at [facility] Other Information That Helps Us Care for You: No Feels Safe at Home: Yes Safety Concerns: Feels Safe At This Time Assistive Devices: None Review of Systems Constitutional: no fever and no chills Respiratory: no cough and no dyspnea Cardiovascular: no chest pain Gastrointestinal: + abdominal pain; no blood in stools soft stools Physical Exam Constitutional: + ill appearing Respiratory: normal respiratory effort Gastrointestinal (Abdomen): Inspection/Auscultation: abdomen normal to inspection Percussion/Palpation: + abdomen tender Psychiatric: Orientation: alert and oriented x 3 Results & Data Vital Signs (Past 12 Hours) Vital Signs Temp Pulse Pulse Resp BP BP Pulse Ox 11/07/23 15:12 93 H 11/07/23 15:10 36.9 C 82 19 102/58 L 99 11/07/23 14:07 36.6 C 82 18 96/56 L 100 11/07/23 13:32 36.5 C 82 20 95/60 L 100 11/07/23 13:17 36.8 C 81 17 98/68 L 99 11/07/23 12:32 36.8 C 90 20 90/57 L 99 11/07/23 11:32 36.8 C 80 20 88/54 L 98 11/07/23 11:15 36.8 C 96 H 16 91/57 L 98 11/07/23 10:47 36.5 C 89 18 83/52 L 97 11/07/23 10:30 36.7 C 87 18 94/56 L 94 11/07/23 07:00 36.5 C 85 18 95/60 L 100 11/07/23 06:21 78 18 88/66 L 100 11/07/23 05:30 89/56 L 100 11/07/23 05:00 96/60 L 11/07/23 04:30 89/54 L 100 O2 Del Method 11/07/23 15:12 11/07/23 15:10 11/07/23 14:07 11/07/23 13:32 11/07/23 13:17 11/07/23 12:32 11/07/23 11:32 11/07/23 11:15 11/07/23 10:47 11/07/23 10:30 11/07/23 07:00 Room Air 11/07/23 06:21 Room Air 11/07/23 05:30 11/07/23 05:00 11/07/23 04:30 PG Care Time/CCT Total # of Minutes Spent Total Time Spent with Patient: Total time spent is greater than 50% in coordination of care (as documented) at patient's floor/unit and/or counseling patient: Coding Level of Care Code 56044 IN/OBS CONSULT LVL 4,60M Diagnoses Enteritis K52.9
[2023-11-07] MEDS: BIKTARVY PO SCH (16:28)
[2023-11-08 06:44] LABS: Hematocrit (blood only) 27.3 % (42.0-52.0); Hemoglobin 8.6 g/dl (14.0-18.0); Mean Corpuscular Hemoglobin 21.6 pg (25.0-34.0); Mean Corpuscular Hgb Conc 31.5 g/dL (32.0-36.0); Mean Corpuscular Volume 68.6 fL (80.0-100.0); Mean Platelet Volume 8.7 fL (9.4-12.4); Platelet Count 220 K/uL (130-400); RDW Coefficient of Variation 23.6 % (11.5-14.5); RDW Standard Deviation 57.2 fL (36.4-46.3); Red Blood Count 3.98 M/uL (4.70-6.10); White Blood Count 10.67 K/ul (4.8-10.8)
[2023-11-08 06:56] LABS: Albumin Globulin Ratio 0.4 (0.9-2); Bilirubin,Total 0.5 mg/dl (0.2-1.0); Creatinine Clr Calc Pharmacy 79.6 ml/min; Est GFR (African American) 107.9 ml/min; Est GFR (Non-African American) 93.1 ml/min; Globulin 4.7 gm/dl (2.5-4.0); Potassium 3.8 mmol/L (3.5-5.1); Total Protein 6.7 gm/dl (6.0-8.3)
[2023-11-08] MEDS: ETHAMBUTOL HCL 100 MG PO SCH (08:06)
[2023-11-08] MEDS: ETHAMBUTOL HCL 400 MG TAB PO SCH (08:07)
[2023-11-08] MEDS ORDERED: BIKTARVY PO SCH (09:00)
--- NOTE | 2023-11-08 11:41 | Hospitalist Progress Note ---
Date of Service November 08, 2023 Assessment & Plan (1) Abdominal pain: Plan: History of HIV currently on HAART, incarcerated Presents with abdominal pain. Mild diffuse abdominal tenderness on exam CT scan showed evidence of diffuse enteritis Stool cultures, ova and parasite pending Continue his HAART therapy and also continue azithromycin, ethambutol, Bactrim GI has been consulted, no plan for EGD or colonoscopy for now. (2) HIV (human immunodeficiency virus infection): Plan: Patient admitted been compliant with his HIV HAART medications the past 1 year. Although there was a point in 2021 when he did not take his medications. Last CD4 count was 104 in July 2023, viral load was undetected in April 2023. Has had prior diagnosis of disseminated MAC. On azithromycin and ethambutol (takes 1000 mg) Order CT scan of the abdomen showing evidence of enteritis and abdominal pain, Repeat CD4 count is pending Appreciate ID recommendations. (3) Anemia: Plan: Presents with a hemoglobin of 6.0 patient with longstanding history of anemia. He has undergone workup at outside facilities and reports most recently having a bone marrow biopsy performed at [facility] ([facility] Results are still pending. Possibly secondary to MAC infection Hemoglobin 8.6 today status posttransfusion (4) Hypotension: Plan: Blood pressure still on the low side even after transfusion Continue to monitor, patient is asymptomatic for now. Will add p.o. midodrine Plan Continue to monitor in the hospital Full code DVT prophylaxis SCDs Admission and Anticipated Discharge Date Admission Date: November 06, 2023 Subjective Patient seen and examined in the emergency department, lying quietly in bed chronically ill looking but denies any acute chest pain but complains of some mild abdominal pain, denies fevers or chills overnight Review of Systems Review of Systems: All systems reviewed are negative, apart from the ones contained in the history. Physical Exam Physical Exam: The patient is awake, alert and oriented 3, chronically ill looking HEENT--PERRL, EOMI, mucous membranes and oropharynx mildly dry Neck--supple. No JVD. No bruits. Thyroid normal, trachea midline, no adenopathy. Heart--normal S1 and S2. No murmurs, rubs or gallops. Lungs--clear bilaterally, no respiratory distress, no accessory muscle use. Abdomen--mild diffuse abdominal tenderness. Extremities--no cyanosis or clubbing. No edema. Dermatologic--normal skin turgor, normal color, no abnormal lymph nodes, no rash. Neurologic--cranial nerves II through XII grossly intact. Rheumatologic--normal range of motion. Psychiatric--normal affect. Results & Data Results & Data Vital Signs (Past 12 Hours) Vital Signs Temp Pulse Resp BP Pulse Ox O2 Del Method 11/08/23 07:35 99.1 F 88 16 88/55 L 97 Room Air 11/08/23 05:06 99.3 F 93 H 18 95/57 L 95 Room Air 11/08/23 05:00 Room Air PG Care Time/CCT Total # of Minutes Spent Total Time Spent with Patient: Total time spent is greater than 50% in coordination of care (as documented) at patient's floor/unit and/or counseling patient: Coding Level of Care Code 00932 SUB INP/OBS CARE 2/35MIN Diagnoses Abdominal pain R10.9 Abdominal location: unspecified location HIV (human immunodeficiency virus infection) B20 Anemia D64.9 Anemia type: unspecified type Hypotension I95.9 Hypotension type: unspecified hypotension type Time Spent (min) 35 (1) Abdominal pain Abdominal location: unspecified location Qualified Code(s): R10.9 - Unspecified abdominal pain (3) Anemia Anemia type: unspecified type Qualified Code(s): D64.9 - Anemia, unspecified (4) Hypotension Hypotension type: unspecified hypotension type Qualified Code(s): I95.9 - Hypotension, unspecified
--- NOTE | 2023-11-08 12:32 | Communication Note ---
Date of Service: November 08, 2023 Refer to consult note from 11/07/23. GI service discussed with patient that we would not proceed with any invasive GI work-up unless his CD4 count had signi ficantly improved. Discussed risk of infection. Await O&P study results as well as results of CD4 count. Supportive care in the interim.
[2023-11-08] MEDS: MIDODRINE HCL 2.5 MG TAB PO SCH (13:37)
[2023-11-08 13:46] LABS: Chlam trach RNA(Genit,Ureth,Ur Not Detected (NotDetected); GC(Neis gon)RNA(Genit,Ureth,Ur Not Detected (NotDetected)
[2023-11-09 06:13] LABS: Albumin Level 2.1 gm/dl (3.4-5.0); Bilirubin,Total 0.3 mg/dl (0.2-1.0); Calcium 7.4 mg/dl (8.6-10.3); Potassium 3.6 mmol/L (3.5-5.1)
[2023-11-09 06:14] LABS: Basophils # (auto) 0.04 K/uL (0.00-0.20); Basophils % (auto) 0.3 %; Eosinophils # (auto) 0.04 K/uL (0.00-0.50); Eosinophils % (auto) 0.3 %; Hemoglobin 8.1 g/dl (14.0-18.0); Immature Granulocytes # (auto) 0.29 K/uL (0.01-0.20); Immature Granulocytes % (auto) 2.4 %; Lymphocytes % (auto) 10.1 %; Mean Corpuscular Hemoglobin 21.8 pg (25.0-34.0); Mean Corpuscular Hgb Conc 31.2 g/dL (32.0-36.0); Mean Corpuscular Volume 70.1 fL (80.0-100.0); Monocytes # (auto) 0.41 K/uL (0.11-0.59); Monocytes % (auto) 3.5 %; Neutrophils % (auto) 83.4 %; Platelet Count 224 K/uL (130-400); RDW Coefficient of Variation 24.4 % (11.5-14.5); Red Blood Count 3.71 M/uL (4.70-6.10); White Blood Count 11.88 K/ul (4.8-10.8)
[2023-11-09 06:19] LABS: Albumin Globulin Ratio 0.5 (0.9-2); BUN Creatinine Ratio 13.9 (10-20); Est GFR (African American) 106.6 ml/min; Globulin 4.5 gm/dl (2.5-4.0); Total Protein 6.6 gm/dl (6.0-8.3)
[2023-11-09 07:10] LABS: Anisocytosis Present; Hypochromasia Present; Ovalocytes 1+; Schistocytes 1+
--- NOTE | 2023-11-09 10:46 | Hospitalist Progress Note ---
Date of Service November 09, 2023 Assessment & Plan (1) Abdominal pain: Plan: History of HIV currently on HAART, incarcerated Presents with abdominal pain. Mild diffuse abdominal tenderness on exam CT scan showed evidence of diffuse enteritis Stool cultures, ova and parasite pending Continue his HAART therapy and also continue azithromycin, ethambutol, Bactrim GI has been consulted, no plan for EGD or colonoscopy for now, pending Viral load and CD 4 count Patient says abd pain is tolerable (2) HIV (human immunodeficiency virus infection): Plan: Patient admitted been compliant with his HIV HAART medications the past 1 year. Although there was a point in 2021 when he did not take his medications. Last CD4 count was 104 in July 2023, viral load was undetected in April 2023. Has had prior diagnosis of disseminated MAC. On azithromycin and ethambutol (takes 1000 mg) Order CT scan of the abdomen showing evidence of enteritis and abdominal pain, Repeat CD4 count is pending, as well as Viral Load Appreciate ID recommendations. (3) Anemia: Plan: Presents with a hemoglobin of 6.0 patient with longstanding history of anemia. He has undergone workup at outside facilities and reports most recently having a bone marrow biopsy performed at [facility] ([facility] Results are still pending. Possibly secondary to MAC infection Hemoglobin 8.1 today status posttransfusion (4) Hypotension: Plan: Blood pressure still on the low side even after transfusion Continue to monitor, patient is asymptomatic for now. Will add p.o. midodrine Plan Continue to monitor in the hospital Full code DVT prophylaxis SCDs Admission and Anticipated Discharge Date Admission Date: November 06, 2023 Subjective Patient seen and examined in the emergency department, lying quietly in bed chronically ill looking but denies any acute chest pain but complains of some mild abdominal pain, denies fevers or chills overnight Review of Systems Review of Systems: All systems reviewed are negative, apart from the ones contained in the history. Physical Exam Physical Exam: The patient is awake, alert and oriented 3, chronically ill looking HEENT--PERRL, EOMI, mucous membranes and oropharynx mildly dry Neck--supple. No JVD. No bruits. Thyroid normal, trachea midline, no adenopathy. Heart--normal S1 and S2. No murmurs, rubs or gallops. Lungs--clear bilaterally, no respiratory distress, no accessory muscle use. Abdomen--mild diffuse abdominal tenderness. Extremities--no cyanosis or clubbing. No edema. Dermatologic--normal skin turgor, normal color, no abnormal lymph nodes, no rash. Neurologic--cranial nerves II through XII grossly intact. Rheumatologic--normal range of motion. Psychiatric--normal affect. Results & Data Results & Data Vital Signs (Past 12 Hours) Vital Signs Temp Pulse Pulse Resp BP Pulse Ox O2 Del Method 11/09/23 08:42 79 11/09/23 07:37 98.8 F 81 17 90/50 L 96 Room Air 11/09/23 03:00 99.7 F H 92 H 16 90/50 L 97 Room Air 11/08/23 23:00 100.2 F H 87 16 93/50 L 95 Room Air PG Care Time/CCT Total # of Minutes Spent Total Time Spent with Patient: Total time spent is greater than 50% in coordination of care (as documented) at patient's floor/unit and/or counseling patient: Coding Level of Care Code 38970 SUB INP/OBS CARE 2/35MIN Diagnoses Abdominal pain R10.9 Abdominal location: unspecified location HIV (human immunodeficiency virus infection) B20 Anemia D64.9 Anemia type: unspecified type Hypotension I95.9 Hypotension type: unspecified hypotension type Time Spent (min) 35 (1) Abdominal pain Abdominal location: unspecified location Qualified Code(s): R10.9 - Unspecified abdominal pain (3) Anemia Anemia type: unspecified type Qualified Code(s): D64.9 - Anemia, unspecified (4) Hypotension Hypotension type: unspecified hypotension type Qualified Code(s): I95.9 - Hypotension, unspecified
--- NOTE | 2023-11-09 15:10 | Infectious Disease Progress Nt ---
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 Here, he has been afebrile, hy potensive. WBC wnl, anemia to 6. Cr 1. LFT wnl. UA negative. Stool studies sent. HIV VL and CD4 pending. CTAP with moderate wall thickening of small bowel c/w high grade enteritis. ID consulted 11/06 for assistance. Patient symptomatically better. Received several liters of IVFs for hypotension on 11/06, now improved. Remains afebrile. Seen by GI, no intervention, supportive care advised. Stool studies negative. HIV VL and CD4 are in process. Clinically he notes improvement in his abdominal symptoms. CT with findings of enteritis, which could have many causes in HIV. No adenopathy was noted on, though MAC still possible given disseminated disease and noncompliance with ethambutol for 2 weeks prior to admission. No intervention per GI while CD4 is low. Unfortunately, other options aside from ethambutol are difficult due to toxicity and access though note that MAC sensi from 05/2023 is intermediate to amikacin IV and no sensi available for ethambutol. I would be cautious at this time in changing regimen given his noncompliance. Also note, home dose of ethambutol is 1000mg. The dose for disseminated disease is 15mg/kg, which is around 850mg. Patient says he was originally on 1200mg and now by his ID provider is 1000mg. Will continue him on home dose. His BPs seem to be at baseline on review from prior admissions. Stool studies are negative, o+p is still in process. # Enteritis # Groin rash/lymphadenopathy improving, GC-chlamydia neg # HIV/AIDS # h/o disseminated MAC # h/o PJP PNA - f/u stool o+p - f/u HIV VL and CD4 count - continue biktarvy - continue home dose of azithromycin and ethambutol (increased this back to 1000mg) - continue bactrim ppx ID will continue to follow. If questions or concerns, contact Infectious Disease Call Center . Dr. Newton to take over service on Sunday. Jessica Thompson MD [facility], Division of Infectious Diseases [facility]: [phone] Admission and Anticipated Discharge Date Admission Date: November 06, 2023 Subjective Subsequent visit was provided via telemedicine using two-way real-time interacti ve telecommunication between the patient and the telemedicine provider. For the duration of the visit, the provider was performing the assessment from a different facility than the patient. This includesuse of bluetooth stethoscope forauscultationperformed by the telepresenter that the telemedicine provider can hear if described in the physical exam. Receiving Tank Operator contact information: Please call [facility] Center [phone]. (Phone Number For Physician Use Only) After establishing a telemedicine visit, patient was: Patient was verified with two unique identifiers, Patient/authorized rep acknowledged consent and understanding and Gave permission to continue telehealth session Time Spent with Patient: Subsequent => 55 min Patient reports soreness of abdomen. Better from before. No diarrhea. Physical Exam Physical Exam: General: Awake, alert, no acute distress HEENT: NC/AT, EOMI, mmm Neck: supple Lungs: respirations non-labored Heart: nl peripheral perfusion Abdomen: soft, tender Ext: no LE edema Results & Data Vital Signs (Past 12 Hours) Vital Signs Temp Pulse Pulse Resp BP Pulse Ox O2 Del Method 11/09/23 14:26 36.9 C 79 17 92/55 L 98 Room Air 11/09/23 10:50 37.1 C 78 19 93/54 L 97 Room Air 11/09/23 08:42 79 11/09/23 07:37 37.1 C 81 17 90/50 L 96 Room Air (3) Abdominal pain Abdominal location: unspecified location Qualified Code(s): R10.9 - Unspecified abdominal pain
[2023-11-09 23:02] LABS: LSP % Cells Analyzed CD4 9 % (30-61); LSP Absolute Ct CD4 71 cells/uL (490-1740); LSP Lymphocytes Absolute 754 cells/uL (850-3900)
[2023-11-10] MEDS: ETHAMBUTOL HCL 100 MG PO SCH (07:53)
[2023-11-10 08:08] LABS: Hematocrit (blood only) 28.1 % (42.0-52.0); Hemoglobin 8.8 g/dl (14.0-18.0); Mean Corpuscular Hemoglobin 21.5 pg (25.0-34.0); Mean Corpuscular Hgb Conc 31.3 g/dL (32.0-36.0); Mean Corpuscular Volume 68.7 fL (80.0-100.0); Platelet Count 225 K/uL (130-400); RDW Coefficient of Variation 24.5 % (11.5-14.5); RDW Standard Deviation 58.5 fL (36.4-46.3); Red Blood Count 4.09 M/uL (4.70-6.10); White Blood Count 11.96 K/ul (4.8-10.8)
[2023-11-10 08:23] LABS: Albumin Globulin Ratio 0.4 (0.9-2); BUN Creatinine Ratio 16.9 (10-20); Bilirubin,Total 0.4 mg/dl (0.2-1.0); Calcium 7.4 mg/dl (8.6-10.3); Creatinine Clr Calc Pharmacy 88.4 ml/min; Est GFR (African American) 123.1 ml/min; Est GFR (Non-African American) 106.2 ml/min; Potassium 3.8 mmol/L (3.5-5.1)
--- NOTE | 2023-11-10 10:06 | Discharge Summary ---
Date of Service November 10, 2023 Admission HPI Per Admitting Provider Margarito Arias is a 43yo male inmate at [facility] presenting tith hypotension and abdominal pain. Patient with history of HIV (Unknown last CD4 count, VL reportedly undetectable, on HAART Therapy with Bictarvy as well as prophylaxis with Azithromycin and Bactrim). 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 Patient had a Telemedicine visit today in preparation for his followup visit with Infectious Disease. He was noted to have low blood pressure 80's/50's. He has had appx 1 week of abdominal pain and swelling. His pain started in the RLQ then spread diffusely throughout the abdomen. Pain was constant and severe. He had some abdominal distention and bloating as well. He reports poor appetite and decreased oral intake over the last week. He was having soft BMs and denies watery diarrhea or blood in stools (although he doesn't routinely examine his stools). No report of nausea or vomiting. No fever, chills, cough, chest pain or shortness of breath. No back pain or urinary complaints. No sick contacts. He reports not taking his medications for approximately 1 week. He reports that over the last 1-2 days his symptoms have actually been improving - he has less abdominal pain and distention and has return of his appetite. He has been able to eat without difficulty Patient with longstanding history of anemia. He denies blood loss. He was told that this was secondary to iron deficiency and was previously on PO and IV iron infusions. He reports that his blood counts never improved with the iron treatment. Was told that he is not absorbing the iron. He denies acute blood loss. He had a bone marrow biopsy recently performed at [facility] (or [place], he does not recall) and is still waiting for the results. Principal Diagnosis HIV, enteritis Discharge Exam The patient is awake, alert and oriented 3, chronically ill looking HEENT--PERRL, EOMI, mucous membranes and oropharynx mildly dry Neck--supple. No JVD. No bruits. Thyroid normal, trachea midline, no adenopathy. Heart--normal S1 and S2. No murmurs, rubs or gallops. Lungs--clear bilaterally, no respiratory distress, no accessory muscle use. Abdomen--mild diffuse abdominal tenderness. Extremities--no cyanosis or clubbing. No edema. Dermatologic--normal skin turgor, normal color, no abnormal lymph nodes, no rash. Neurologic--cranial nerves II through XII grossly intact. Rheumatologic--normal range of motion. Psychiatric--normal affect. Discharge Data Allergies Allergy/AdvReac Type Severity Reaction Status Date / Time No Known Allergies Allergy Verified 11/06/23 19:06 Consultations 11/06/23 20:34 ED Decision to Admit Stat 11/07/23 08:40 Consult Gastroenterology Routine Consult Infectious Diseases Routine Ordered Studies 11/06/23 18:35 CT abd pelvis IV con only Stat Hospital Course (1) Abdominal pain: History of HIV currently on HAART, incarcerated Presents with abdominal pain. Mild diffuse abdominal tenderness on exam CT scan showed evidence of diffuse enteritis Stool cultures, ova and parasite pending Continue his HAART therapy and also continue azithromycin, ethambutol, Bactrim GI has been consulted, no plan for EGD or colonoscopy for now, repeat CD 4 count 71, compared to 104 in July 2023 Patient says abd pain has resolved Outpatient follow up with GI pending improvement in CD4 count (2) HIV (human immunodeficiency virus infection): Patient admitted been compliant with his HIV HAART medications the past 1 year. Although there was a point in 2021 when he did not take his medications. Last CD4 count was 104 in July 2023, viral load was undetected in April 2023. Has had prior diagnosis of disseminated MAC. On azithromycin and ethambutol (takes 1000 mg) Order CT scan of the abdomen showing evidence of enteritis and abdominal pain, Repeat CD4 count is 71, VL is pending Appreciate ID recommendations. No change in his antibiotics regimen (3) Anemia: Presents with a hemoglobin of 6.0 patient with longstanding history of anemia. He has undergone workup at outside facilities and reports most recently having a bone marrow biopsy performed at [facility] (maybe [facility] Results are still pending. Possibly secondary to MAC infection Hemoglobin 8.1 today status posttransfusion (4) Hypotension: Blood pressure still on the low side even after transfusion Continue to monitor, patient is asymptomatic for now. Will add p.o. midodrine Plan d/c to correctional facility Full code DVT prophylaxis SCDs Total Time Total Time Spent Total Time Spent (In Minutes): 35 Discharge Plan Discharge Items Patient Disposition: [facility] Reason For Visit: DEHYDRATION, DIARRHEA Discharge Diagnosis: HIV, Enteritis Activity: Resume your previous activity Non-emergency contact: Primary Care Provider Call non-emergency contact if: you have any medication questions Follow-up/Referrals: Tonya ORTIZ [Primary Care Provider] - Diet: Regular Addtl Attending Provider Instructions: please make appointment to follow up with your regular Infectious Diseases Doctor Pending Studies at Discharge: No Stand-Alone Forms: My [facility] Skilled Items Patient informed of condition?: Yes Discharge Level of Care: Other Communicable Disease: No Discharge Prognosis: Stable Lines: None Urinary Catheter: No Medications and DC Order Prescriptions: New ethambutol [Myambutol] 400 mg Tablet 800 mg PO DAILY 30 Days Qty: 60 0RF ethambutol 100 mg Tablet 50 mg PO DAILY 30 Days Qty: 15 0RF Continued guaifenesin 100 mg/5 mL liquid 200 mg PO Q4H PRN (Reason: Cough) Biktarvy 30-120-15 mg tablet 1 tab PO DAILY Rx Instructions: STRENGTH NOT LISTED ON MEDS LIST sulfamethoxazole-trimethoprim [Bactrim DS] 800-160 mg Tablet 1 tab PO DAILY ergocalciferol (vitamin D2) [Drisdol] 1,250 mcg (50,000 unit) Capsule 50,000 unit PO WK Rx Instructions: FRIDAYS cholecalciferol (vitamin D3) 25 mcg (1,000 unit) Tablet 25 mcg PO DAILY folic acid 1 mg Tablet 1 mg PO DAILY Qty: 30 0RF Incruse Ellipta 62.5 mcg/actuation Blister With Device 1 inh inhalation DAILY Qty: 1 0RF cyanocobalamin (vitamin B-12) 1,000 mcg/mL Solution 1,000 mcg IM .Q2WKS Rx Instructions: TUESDAYS brimonidine 0.15 % Drops 1 drp OPL BID difluprednate [Durezol] 0.05 % Drops 1 drp OPB QID dicyclomine 10 mg capsule 10 mg PO BID PRN (Reason: ABD PAIN NEEDED) Rx Instructions: MUST OBSERVE PT TAKING THIS MED. azithromycin 500 mg Tablet 500 mg PO DAILY cholestyramine (with sugar) [Questran] 4 gram Powder In Packet 4 g PO BID Rx Instructions: administer w/meal; avoid other meds within 1hr before or 4-6hr after dose Discontinued ethambutol [Myambutol] 100 mg Tablet 200 mg PO DAILY Rx Instructions: TOTAL DOSE 600 MG--TAKES WITH 400 MG TAB. ethambutol [Myambutol] 400 mg Tablet 400 mg PO DAILY Rx Instructions: TOTAL DOSE 600 MG--TAKES WITH 2-100 MG TABS. Discharge Orders: Discharge Order (Routine); Ordered 11/10/23 Ordered By: Stephanie Brock Admission Data Admit Date/Time: 11/06/23 21:45 Attending Provider: Stephanie Brock Admit Provider: Marie Suero Primary Care Provider: Tonya ORTIZ Other Providers: Marie Suero; Higinio Landers; India Carrillo; Connie Sheffield; Katie Newton; Jessica Thompson; Aisha Elmore; Clau Gamez; Kori Flores Coding Level of Care Code 34368 INP/OBS DISCH >30 MIN Diagnoses Abdominal pain R10.9 Abdominal location: unspecified location HIV (human immunodeficiency virus infection) B20 Anemia D64.9 Anemia type: unspecified type Hypotension I95.9 Hypotension type: unspecified hypotension type Time Spent (min) 35
[2023-11-10 10:51] LABS: HIV 1 RNA PCR Copies/ML NOT DETECTED copies/mL (NOT DETECTED); HIV-1 RNA Log Copies/mL NOT DETECTED (NOT DETECTED)
== END 2023-11-10 12:44 | DRG 977 ==
LOC: ED 15:46 → SUATTDRO 21:45 → EDINP 21:45 → 2S 22:57

== ENCOUNTER 2023-12-04 09:28 | Observation (INO) ==
--- NOTE | 2023-12-04 09:39 | Emergency Department Note ---
Impression & Plan Sepsis, HIV (human immunodeficiency virus infection), Hypotension, Anemia, Mycobacterium avium complex, Infection due to parainfluenza virus 3, Enterovirus infection ED Provider Note NAME: HAZEL [id number] MECHELLE AGE: 43 SEX: M : 1980 ARRIVES VIA: Ambulance INFORMANT: Patient ED PROVIDER(S): Kumar Caldwell MD CHIEF COMPLAINT: Fever, low blood pressure, body pain PLAN: Disposition: Admit MEDICAL DECISION MAKING: The patient is a 43-year-old gentleman, inmate at [facility] with past medical history of HIV with low CD4 count per records. Who presents emergency department via EMS for evaluation of fever, low blood pressure since being admitted to this facility from 11/05-11/09 for similar symptoms with severe enteritis. He was noted to have acute on chronic anemia with a hemoglobin of 6 which was stable following transfusion. Patient reports he is scheduled to have a bone marrow biopsy to further evaluate his chronic anemia. 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 He is also on 1 double strength Bactrim daily for PJP prophylaxis. However, patient reports she has been noncompliant with his medications since his discharge as well as a similar lead described situation 2 weeks prior to the last admission. Patient reports that he has been in too much pain to fatigue to go obtain his medications. He reports ongoing back, hip, abdominal and thigh pain. Patient received 500 cc normal saline and 6 times cc of lactated Ringer's by EMS. On arrival, the patient is chronically ill, fatigued appearing but no acute distress, afebrile with heart rate in the 70s and blood pressure 80s/50s and vital signs otherwise stable. He appears clinically dry. He is mentating normally. He has generalized abdominal discomfort without discrete tenderness. There is no guarding or rebound. He has normal strength in bilateral lower extremities. EKG without overt acute ischemia. CXR with question of left lower lobe focal density that may be new though does correlate to nodular densities seen on CT imaging previously. WBC and platelets normal limits. H/H 7/22.3 with microcytic MCV decreased from discharge value of 8.8/20.1. Reticulocytes are notably low at 0.18. Patient's iron level is undetectable. Chemistry without metabolic acidosis. Glucose was 60 and dextrose was administered. Magnesium 1.6 with IV repletion provided. CPK is not elevated. High-sensitivity troponin 2.8, within normal limits. Procalcitonin is elevated at 1.8. TSH within limits. UA pending. Respiratory viral panel/[employer] was positive for parainfluenza 3 and enterovirus/rhinovirus. CTA of the chest was performed and was negative for PE or acute cardiopulmonary process. Redemonstration of emphysema and bronchiectasis and scarring was described. CT abdomen pelvis was performed and demonstrates nonspecific body wall edema is described as is mild ascites. Patient treated empirically with IV Zosyn on arrival and was administered his prescribed azithromycin via IV and following CT is ethambutol and Bactrim doses were also administered. Patient was treated with greater than 30 cc/kg of IV fluids including 3+ liters normal saline the patient was also consented for blood transfusion given persistence of his hypotension. Patient was subsequently responsive to volume with maps 55 and greater though tenuous. Case was discussed with Dr. Ceballos [facility] hospitalist, who will evaluate the patient for admission. Further management per admitting team.. Triage Nursing notes reviewed and agree them. Prior/external medical records reviewed Vital Signs: reviewed Differential diagnosis: Viral syndrome, otitis, pharyngitis, pneumonia, influenza, meningitis, urinary tract infection, sepsis, bacteremia, as well as other pathologies. ER treatment provided: See below. Diagnostics interpreted by me: ECG: Normal sinus rhythm, 75 bpm, no ectopy, no overt ST elevation or depression, QTc 410, QRS 74. Cardiac Monitoring: An order for continuous cardiac monitoring was placed and demonstrated Normal sinus rhythm, 75 bpm, no ectopy. Laboratory studies: See below Imaging studies: See below Consultation(s): Case was discussed with Dr. Ceballos, [facility] hospitalist, who will evaluate the patient for admission. HPI: The patient is a 43-year-old gentleman, inmate at [facility] with past medical history of HIV with low CD4 count per records. Who presents emergency department via EMS for evaluation of fever, low blood pressure since being admitted to this facility from 11/05-11/09 for similar symptoms with severe enteritis. He was noted to have acute on chronic anemia with a hemoglobin of 6 which was stable following transfusion. Patient reports he is scheduled to have a bone marrow biopsy to further evaluate his chronic anemia. 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 He is also on 1 double strength Bactrim daily for PJP prophylaxis. However, patient reports she has been noncompliant with his medications since his discharge as well as a similar lead described situation 2 weeks prior to the last admission. Patient reports that he has been in too much pain to fatigue to go obtain his medications. He reports ongoing back, hip, abdominal and thigh pain. Patient received 500 cc normal saline and 6 times cc of lactated Ringer's by EMS. ROS: See above HPI for pertinent positives & negatives. A total of 10 systems reviewed and were otherwise negative. VITALS:See Below PHYSICAL EXAMINATION: GENERAL: Awake, alert, fatigued/chronically ill-appearing, in no distress HENT: Normocephalic, atraumatic. Oropharynx with dry mucous membranes. EYES: Normal conjunctiva. Sclera non-icteric. NECK: Supple. No nuchal rigidity. FROM. No JVD. RESPIRATORY: Clear to auscultation. CARDIAC: Regular rate, normal rhythm. Extremities warm and well perfused. Pulses equal. ABDOMEN: Soft, non-distended. Generalized abdominal discomfort without discrete tenderness to palpation. No rebound or guarding. Nonspecific nodularity of lower abdominal wall. MUSCULOSKELETAL: Chest examination reveals no tenderness. The back is symmetrical on inspection without obvious abnormality. There is no CVA tenderness to palpation. No joint edema. LOWER EXTREMITIES: Calves are equal size bilaterally and non-tender. No edema. No discoloration. NEURO: Normal sensorium. No sensory or motor deficits noted. SKIN: No rash or jaundice noted. ED COURSE: Critical Care: I have personally spent greater than 45 minutes of critical care time in the direct management of this patient. This includes bedside care, interpretation of diagnostic studies, and testing, discussion with consultants, patient, and family members, and other required patient management activities. This 45 minutes is in excess of all separately billable procedures. Kumar Caldwell MD Past Med/Surg History Problem List (Updated 12/04/23 @ 17:37 by Kumar Caldwell MD) Enterovirus infection (Acute) Infection due to parainfluenza virus 3 (Acute) Anemia (Acute) Hypotension (Acute) Emphysema lung Mycobacterium avium complex (Acute) Enteritis Abdominal pain (Acute) Anemia (Acute) Acute hyponatremia (Acute) Skin lesion of chest wall Dyspnea Irritable bowel syndrome Vision loss of left eye Abnormal computerized tomography of biliary tract LVH (left ventricular hypertrophy) Abnormal CT scan, chest Diarrhea (Acute) Sepsis (Acute) Cough (Acute) Anemia (Acute) Hypotension (Acute) HIV (human immunodeficiency virus infection) (Acute) Medical History Hyperlipemia Vision loss of left eye LVH (left ventricular hypertrophy) Abnormal CT scan, chest Iron deficiency anemia Vitamin D deficiency HIV (human immunodeficiency virus infection) Social History Smoking Status: Never smoker Second Hand Exposure: No; Do You Dip or Chew Tobacco: No; Hx Alcohol Use: No Hx Substance Use: No Preferred Language: Burkinan Communication Ability: Effective Orientation And Mobility Specialist Required: No Beliefs That Will Affect Care: None Current Living Situation: Legal Guardian Current Living Situation Comment: Correction[facility] Facility, [facility] Other Information That Helps Us Care for You: No Feels Safe at Home: Yes Safety Concerns: Feels Safe At This Time Assistive Devices: None Allergies Allergies Allergy/AdvReac Type Severity Reaction Status Date / Time No Known Allergies Allergy Verified 12/04/23 14:54 Home Meds Home Medications Medication Instructions Recorded Confirmed cholecalciferol (vitamin D3) 25 25 mcg PO DAILY 05/09/23 12/04/23 mcg (1,000 unit) tablet ergocalciferol (vitamin D2) 1,250 50,000 unit PO WK 05/09/23 12/04/23 mcg (50,000 unit) capsule (Drisdol) sulfamethoxazole 800 1 tab PO DAILY 05/09/23 12/04/23 mg-trimethoprim 160 mg tablet (Bactrim DS) bictegravir 30 mg-emtricitabine 1 tab PO DAILY 07/18/23 12/04/23 120 mg-tenofovir alafenam 15 mg tablet (Biktarvy) guaifenesin 100 mg/5 mL oral liquid 200 mg PO Q4H PRN Cough 07/18/23 12/04/23 azithromycin 500 mg tablet 500 mg PO DAILY 11/06/23 12/04/23 brimonidine 0.15 % eye drops 1 drp OPL BID 11/06/23 12/04/23 cholestyramine (with sugar) 4 gram 4 g PO BID 11/06/23 12/04/23 powder for susp in a packet (Questran) cyanocobalamin (vitamin B-12) 1,000 mcg IM .Q2WKS 11/06/23 12/04/23 1,000 mcg/mL injection solution dicyclomine 10 mg capsule 10 mg PO BID PRN ABD PAIN NEEDED 11/06/23 12/04/23 difluprednate 0.05 % eye drops 1 drp OPB DIRECTED 11/06/23 12/04/23 (Durezol) Previous Rx's Medication Instructions Recorded folic acid 1 mg tablet 1 mg PO DAILY #30 tabs 05/30/23 umeclidinium 62.5 mcg/actuation 1 inh inhalation DAILY #1 inhaler 05/30/23 blister powder for inhalation (Incruse Ellipta) ethambutol 100 mg tablet 50 mg (1/2 x 100 mg) PO DAILY 30 11/10/23 days #15 tabs ethambutol 400 mg tablet 800 mg (2 x 400 mg) PO DAILY 30 11/10/23 (Myambutol) days #60 tabs Results & Data (ED) Vital Signs Vital Signs - 24 hr 12/04/23 09:45 12/04/23 09:45 12/04/23 10:00 Temperature 36.6 C Temperature Source Oral Pulse Rate 73 Pulse Rate [Apical] 69 Pulse Rate from SpO2 Sensor Pulse Strength [Apical] Respiratory Rate 11 L 11 L Respiratory Effort / Characteristics Respiratory Depth Respiratory Pattern Blood Pressure 80/56 L Blood Pressure [Right Arm] 83/57 L Blood Pressure Mean 64 Blood Pressure Mean [Right Arm] 65 Pulse Oximetry 100 Oxygen Delivery Method Room Air Room Air Sepsis New/Unexplained Change in Mental Status No Sepsis Action Taken by Nursing No Action Required 12/04/23 10:26 12/04/23 10:30 12/04/23 10:30 Temperature Temperature Source Pulse Rate 69 69 Pulse Rate [Apical] Pulse Rate from SpO2 Sensor Pulse Strength [Apical] Respiratory Rate 12 Respiratory Effort / Characteristics Respiratory Depth Respiratory Pattern Blood Pressure 84/60 L Blood Pressure [Right Arm] Blood Pressure Mean 65 Blood Pressure Mean [Right Arm] Pulse Oximetry Oxygen Delivery Method Room Air Sepsis New/Unexplained Change in Mental Status Sepsis Action Taken by Nursing 12/04/23 10:45 12/04/23 11:00 12/04/23 11:00 Temperature Temperature Source Pulse Rate 64 60 Pulse Rate [Apical] Pulse Rate from SpO2 Sensor 64 60 Pulse Strength [Apical] Respiratory Rate 0 L 6 L Respiratory Effort / Characteristics Respiratory Depth Respiratory Pattern Blood Pressure 83/52 L Blood Pressure [Right Arm] Blood Pressure Mean 64 Blood Pressure Mean [Right Arm] Pulse Oximetry 100 98 Oxygen Delivery Method Sepsis New/Unexplained Change in Mental Status Sepsis Action Taken by Nursing 12/04/23 11:15 12/04/23 11:30 12/04/23 11:30 Temperature Temperature Source Pulse Rate 66 67 Pulse Rate [Apical] Pulse Rate from SpO2 Sensor 66 68 Pulse Strength [Apical] Respiratory Rate 13 14 Respiratory Effort / Characteristics Respiratory Depth Respiratory Pattern Blood Pressure 79/61 L Blood Pressure [Right Arm] Blood Pressure Mean 64 Blood Pressure Mean [Right Arm] Pulse Oximetry 98 97 Oxygen Delivery Method Sepsis New/Unexplained Change in Mental Status Sepsis Action Taken by Nursing 12/04/23 11:45 12/04/23 12:00 12/04/23 12:00 Temperature Temperature Source Pulse Rate 68 69 Pulse Rate [Apical] Pulse Rate from SpO2 Sensor 68 70 Pulse Strength [Apical] Respiratory Rate 6 L 12 Respiratory Effort / Characteristics Respiratory Depth Respiratory Pattern Blood Pressure 80/57 L Blood Pressure [Right Arm] Blood Pressure Mean 62 Blood Pressure Mean [Right Arm] Pulse Oximetry 96 98 Oxygen Delivery Method Sepsis New/Unexplained Change in Mental Status Sepsis Action Taken by Nursing 12/04/23 12:39 12/04/23 12:42 12/04/23 12:42 Temperature Temperature Source Pulse Rate 64 Pulse Rate [Apical] Pulse Rate from SpO2 Sensor 63 64 Pulse Strength [Apical] Respiratory Rate 13 Respiratory Effort / Characteristics Respiratory Depth Respiratory Pattern Blood Pressure 76/55 L Blood Pressure [Right Arm] Blood Pressure Mean 61 Blood Pressure Mean [Right Arm] Pulse Oximetry 97 97 Oxygen Delivery Method Sepsis New/Unexplained Change in Mental Status Sepsis Action Taken by Nursing 12/04/23 12:45 12/04/23 12:56 12/04/23 12:56 Temperature Temperature Source Pulse Rate 65 70 Pulse Rate [Apical] Pulse Rate from SpO2 Sensor 65 69 Pulse Strength [Apical] Respiratory Rate 12 21 Respiratory Effort / Characteristics Respiratory Depth Respiratory Pattern Blood Pressure 80/53 L Blood Pressure [Right Arm] Blood Pressure Mean 63 Blood Pressure Mean [Right Arm] Pulse Oximetry 97 98 Oxygen Delivery Method Sepsis New/Unexplained Change in Mental Status Sepsis Action Taken by Nursing 12/04/23 13:00 12/04/23 13:00 12/04/23 13:00 Temperature Temperature Source Pulse Rate 62 Pulse Rate [Apical] Pulse Rate from SpO2 Sensor 61 Pulse Strength [Apical] Respiratory Rate 14 Respiratory Effort / Characteristics Respiratory Depth Respiratory Pattern Blood Pressure 81/53 L 81/53 L Blood Pressure [Right Arm] Blood Pressure Mean 63 63 Blood Pressure Mean [Right Arm] Pulse Oximetry 97 Oxygen Delivery Method Sepsis New/Unexplained Change in Mental Status Sepsis Action Taken by Nursing 12/04/23 13:15 12/04/23 13:30 12/04/23 13:30 Temperature Temperature Source Pulse Rate 58 L 63 Pulse Rate [Apical] Pulse Rate from SpO2 Sensor 60 63 Pulse Strength [Apical] Respiratory Rate 14 13 Respiratory Effort / Characteristics Respiratory Depth Respiratory Pattern Blood Pressure 80/55 L Blood Pressure [Right Arm] Blood Pressure Mean 62 Blood Pressure Mean [Right Arm] Pulse Oximetry 95 98 Oxygen Delivery Method Sepsis New/Unexplained Change in Mental Status Sepsis Action Taken by Nursing 12/04/23 13:45 12/04/23 14:00 12/04/23 14:00 Temperature Temperature Source Pulse Rate 67 68 Pulse Rate [Apical] Pulse Rate from SpO2 Sensor Pulse Strength [Apical] Respiratory Rate 14 16 Respiratory Effort / Characteristics Respiratory Depth Respiratory Pattern Blood Pressure 85/64 L Blood Pressure [Right Arm] Blood Pressure Mean 71 Blood Pressure Mean [Right Arm] Pulse Oximetry 81 L Oxygen Delivery Method Sepsis New/Unexplained Change in Mental Status Sepsis Action Taken by Nursing 12/04/23 14:15 12/04/23 14:20 12/04/23 14:27 Temperature Temperature Source Pulse Rate 61 77 Pulse Rate [Apical] Pulse Rate from SpO2 Sensor Pulse Strength [Apical] Respiratory Rate 14 18 Respiratory Effort / Characteristics Respiratory Depth Respiratory Pattern Blood Pressure 115/76 70/36 L Blood Pressure [Right Arm] Blood Pressure Mean 45 Blood Pressure Mean [Right Arm] Pulse Oximetry 98 Oxygen Delivery Method Room Air Sepsis New/Unexplained Change in Mental Status Sepsis Action Taken by Nursing 12/04/23 14:27 12/04/23 14:30 12/04/23 14:30 Temperature Temperature Source Pulse Rate 62 63 Pulse Rate [Apical] Pulse Rate from SpO2 Sensor Pulse Strength [Apical] Respiratory Rate 14 10 L Respiratory Effort / Characteristics Respiratory Depth Respiratory Pattern Blood Pressure 65/38 L Blood Pressure [Right Arm] Blood Pressure Mean 45 Blood Pressure Mean [Right Arm] Pulse Oximetry Oxygen Delivery Method Sepsis New/Unexplained Change in Mental Status Sepsis Action Taken by Nursing 12/04/23 14:36 12/04/23 14:45 12/04/23 15:00 Temperature Temperature Source Pulse Rate 59 L 56 L 57 L Pulse Rate [Apical] Pulse Rate from SpO2 Sensor Pulse Strength [Apical] Respiratory Rate 11 L 16 Respiratory Effort / Characteristics Respiratory Depth Respiratory Pattern Blood Pressure Blood Pressure [Right Arm] Blood Pressure Mean Blood Pressure Mean [Right Arm] Pulse Oximetry Oxygen Delivery Method Sepsis New/Unexplained Change in Mental Status Sepsis Action Taken by Nursing 12/04/23 15:00 12/04/23 15:00 12/04/23 15:15 Temperature 36.4 C L Temperature Source Oral Pulse Rate 56 L Pulse Rate [Apical] 60 Pulse Rate from SpO2 Sensor Pulse Strength [Apical] Normal Respiratory Rate 19 15 Respiratory Effort / Characteristics Non-Labored Spontaneous Respiratory Depth Normal Respiratory Pattern Regular Blood Pressure 71/54 L Blood Pressure [Right Arm] 80/50 L Blood Pressure Mean 56 Blood Pressure Mean [Right Arm] 60 Pulse Oximetry 100 Oxygen Delivery Method Room Air Sepsis New/Unexplained Change in Mental Status Sepsis Action Taken by Nursing 12/04/23 15:22 12/04/23 15:22 12/04/23 15:23 Temperature Temperature Source Pulse Rate 67 Pulse Rate [Apical] Pulse Rate from SpO2 Sensor Pulse Strength [Apical] Respiratory Rate 14 Respiratory Effort / Characteristics Respiratory Depth Respiratory Pattern Blood Pressure 76/54 L 61/51 L Blood Pressure [Right Arm] Blood Pressure Mean 60 52 Blood Pressure Mean [Right Arm] Pulse Oximetry Oxygen Delivery Method Sepsis New/Unexplained Change in Mental Status Sepsis Action Taken by Nursing 12/04/23 15:23 Temperature Temperature Source Pulse Rate 65 Pulse Rate [Apical] Pulse Rate from SpO2 Sensor Pulse Strength [Apical] Respiratory Rate 16 Respiratory Effort / Characteristics Respiratory Depth Respiratory Pattern Blood Pressure Blood Pressure [Right Arm] Blood Pressure Mean Blood Pressure Mean [Right Arm] Pulse Oximetry Oxygen Delivery Method Sepsis New/Unexplained Change in Mental Status Sepsis Action Taken by Nursing Laboratory Data Attestation: I reviewed the patient's lab results. 12/04/23 22:58 12/04/23 09:54 Lab Results 12/04/23 12/04/23 12/04/23 Range/Units 09:54 10:10 10:55 WBC 7.14 (4.8-10.8) K/ul RBC 3.23 L (4.70-6.10) M/uL Hgb 7.0 L (14.0-18.0) g/dl Hct 22.3 L (42.0-52.0) % MCV 69.0 L (80.0-100.0) fL MCH 21.7 L (25.0-34.0) pg MCHC 31.4 L (32.0-36.0) g/dL RDW Std Deviation 56.1 H (36.4-46.3) fL RDW Coeff of Brody 22.8 H (11.5-14.5) % Plt Count 179 (130-400) K/uL MPV 9.9 (9.4-12.4) fL Immature Gran % (Auto) 2.1 % Neut % (Auto) 83.8 % Lymph % (Auto) 9.8 % Levy % (Auto) 3.5 % Eos % (Auto) 0.4 % Baso % (Auto) 0.4 % Reticulocyte % (Auto) 0.18 L (0.50-2.00) % Neut # (Auto) 5.98 (1.40-6.50) K/uL Lymph # (Auto) 0.70 L (1.20-3.40) K/uL Levy # (Auto) 0.25 (0.11-0.59) K/uL Eos # (Auto) 0.03 (0.00-0.50) K/uL Baso # (Auto) 0.03 (0.00-0.20) K/uL Reticulocyte # 0.010 L (0.020-0.100) 10^6/uL Immature Gran # (Auto) 0.15 (0.01-0.20) K/uL Hypochromasia Present Anisocytosis Present Tear Drop Cells 1+ Rouleaux 1+ Peripher Smr Path Cons Cancelled PT 11.9 (9.0-12.0) Seconds INR 1.1 (0.9-1.1) Sodium 130 L (136-145) mmol/L Potassium 4.0 (3.5-5.1) mmol/L Chloride 100 (98-107) mmol/L Carbon Dioxide 24 (21-32) mmol/L Anion Gap 6 (3-11) BUN 15 (6-23) mg/dl Creatinine 1.10 (0.6-1.4) mg/dl Est Cr Clr Drug Dosing 79.3 ml/min Est GFR ( Amer) 96.1 ml/min Est GFR (Non-Af Amer) 82.9 ml/min BUN/Creatinine Ratio 13.6 (10-20) Glucose 60 L (70-99(Fasting)) mg/dl POC Glucose (70-99) mg/dl Lactate 0.9 (0.4-2.0) mmol/L Calcium 7.9 L (8.6-10.3) mg/dl Phosphorus 3.2 (2.5-4.9) mg/dl Magnesium 1.6 L (1.7-2.4) mg/dl Iron < 10 L (35-175) mcg/dl Unsaturated IBC 96 L (155-355) mcg/dl Transferrin < 95 L (200-360) mg/dl Ferritin 915.6 H (8-388) ng/ml Total Bilirubin 0.3 (0.2-1.0) mg/dl Direct Bilirubin 0.2 (0-0.2) mg/dl AST 21 (13-39) U/L ALT 10 (7-52) U/L Alkaline Phosphatase 87 (34-104) U/L Total Creatine Kinase 11 L (30-223) U/L Troponin I High Sens 2.8 (0-20) pg/ml Total Protein 7.3 (6.0-8.3) gm/dl Albumin 2.1 L (3.4-5.0) gm/dl Procalcitonin 1.87 H (0-0.5) ng/ml TSH 3.009 (0.300-4.500) uIu/ml Random Cortisol 11.45 mcg/dl Adenovirus (PCR) Not Detected (NotDetected) B. pertussis DNA (PCR) Not Detected (NotDetected) B.parapertussis DNA PCR Not Detected (NotDetected) C. pneumoniae DNA (PCR) Not Detected (NotDetected) Coronavirus OC43 (PCR) Not Detected (NotDetected) Coronavirus HKU1 (PCR) Not Detected (NotDetected) Coronavirus 229E (PCR) Not Detected (NotDetected) SARS-CoV-2 (PCR) Not Detected (NotDetected) Coronavirus NL63 (PCR) Not Detected (NotDetected) Human Metapneumovir PCR Not Detected (NotDetected) Influenza Type A (PCR) Not Detected (NotDetected) Influenza Type B (PCR) Not Detected (NotDetected) M. pneumoniae (PCR) Not Detected (NotDetected) Parainfluenza 1 (PCR) Not Detected (NotDetected) Parainfluenza 2 (PCR) Not Detected (NotDetected) Parainfluenza 3 (PCR) DETECTED A (NotDetected) Parainfluenza 4 (PCR) Not Detected (NotDetected) RSV (PCR) Not Detected (NotDetected) Entero/Rhino (PCR) DETECTED A (NotDetected) Blood Type B Positive Antibody Screen POSITIVE A Antibody Identification Anti-M Antibody ID Comment Direct Antiglob Test Negative (Negative) ZACH (IgG-AHG) Neg (Negative) ZACH, Polyspecific Neg (Negative) ZACH C3b, C3d 5 Min Neg (Negative) Crossmatch See Detail 12/04/23 Range/Units 13:39 WBC (4.8-10.8) K/ul RBC (4.70-6.10) M/uL Hgb (14.0-18.0) g/dl Hct (42.0-52.0) % MCV (80.0-100.0) fL MCH (25.0-34.0) pg MCHC (32.0-36.0) g/dL RDW Std Deviation (36.4-46.3) fL RDW Coeff of Brody (11.5-14.5) % Plt Count (130-400) K/uL MPV (9.4-12.4) fL Immature Gran % (Auto) % Neut % (Auto) % Lymph % (Auto) % Levy % (Auto) % Eos % (Auto) % Baso % (Auto) % Reticulocyte % (Auto) (0.50-2.00) % Neut # (Auto) (1.40-6.50) K/uL Lymph # (Auto) (1.20-3.40) K/uL Levy # (Auto) (0.11-0.59) K/uL Eos # (Auto) (0.00-0.50) K/uL Baso # (Auto) (0.00-0.20) K/uL Reticulocyte # (0.020-0.100) 10^6/uL Immature Gran # (Auto) (0.01-0.20) K/uL Hypochromasia Anisocytosis Tear Drop Cells Rouleaux Peripher Smr Path Cons PT (9.0-12.0) Seconds INR (0.9-1.1) Sodium (136-145) mmol/L Potassium (3.5-5.1) mmol/L Chloride (98-107) mmol/L Carbon Dioxide (21-32) mmol/L Anion Gap (3-11) BUN (6-23) mg/dl Creatinine (0.6-1.4) mg/dl Est Cr Clr Drug Dosing ml/min Est GFR ( Amer) ml/min Est GFR (Non-Af Amer) ml/min BUN/Creatinine Ratio (10-20) Glucose (70-99(Fasting)) mg/dl POC Glucose 211 H (70-99) mg/dl Lactate (0.4-2.0) mmol/L Calcium (8.6-10.3) mg/dl Phosphorus (2.5-4.9) mg/dl Magnesium (1.7-2.4) mg/dl Iron (35-175) mcg/dl Unsaturated IBC (155-355) mcg/dl Transferrin (200-360) mg/dl Ferritin (8-388) ng/ml Total Bilirubin (0.2-1.0) mg/dl Direct Bilirubin (0-0.2) mg/dl AST (13-39) U/L ALT (7-52) U/L Alkaline Phosphatase (34-104) U/L Total Creatine Kinase (30-223) U/L Troponin I High Sens (0-20) pg/ml Total Protein (6.0-8.3) gm/dl Albumin (3.4-5.0) gm/dl Procalcitonin (0-0.5) ng/ml TSH (0.300-4.500) uIu/ml Random Cortisol mcg/dl Adenovirus (PCR) (NotDetected) B. pertussis DNA (PCR) (NotDetected) B.parapertussis DNA PCR (NotDetected) C. pneumoniae DNA (PCR) (NotDetected) Coronavirus OC43 (PCR) (NotDetected) Coronavirus HKU1 (PCR) (NotDetected) Coronavirus 229E (PCR) (NotDetected) SARS-CoV-2 (PCR) (NotDetected) Coronavirus NL63 (PCR) (NotDetected) Human Metapneumovir PCR (NotDetected) Influenza Type A (PCR) (NotDetected) Influenza Type B (PCR) (NotDetected) M. pneumoniae (PCR) (NotDetected) Parainfluenza 1 (PCR) (NotDetected) Parainfluenza 2 (PCR) (NotDetected) Parainfluenza 3 (PCR) (NotDetected) Parainfluenza 4 (PCR) (NotDetected) RSV (PCR) (NotDetected) Entero/Rhino (PCR) (NotDetected) Blood Type Antibody Screen Antibody Identification Antibody ID Comment Direct Antiglob Test (Negative) ZACH (IgG-AHG) (Negative) ZACH, Polyspecific (Negative) ZACH C3b, C3d 5 Min (Negative) Crossmatch Administered Medications Brimonidine Tartrate (Brimonidine Tartrate-P 0.15% 5 Ml Btl) 1 drops OPL BID JANES Stop: 01/03/24 20:59 Last Admin: 12/04/23 20:29 Dose: 1 drops Documented By: AIDEN Cholestyramine Resin (Cholestyramine Light 4 Gm Pkt) 4 gm PO BID@1000,2200 JANES Stop: 01/03/24 21:59 Last Admin: 12/04/23 21:20 Dose: Not Given Documented By: AIDEN Piperacillin Sod/Tazobactam (Sod 4.5 gm/ Dextrose) 100 mls @ 25 mls/hr IV Q8H [facility]; Protocol Stop: 12/06/23 19:59 Last Admin: 12/04/23 20:10 Dose: 25 mls/hr Documented By: AIDEN Hydrocortisone Sodium (Succinate 50 mg/ Syringe) 1 mls @ 4 mls/min IV Q6H JANES Stop: 01/03/24 21:59 Last Admin: 12/04/23 21:20 Dose: 4 mls/min Documented By: AIDEN Discontinued Medications Dextrose (Dextrose 50% 50 Ml Syringe) 50 ml IV NOW ONE Stop: 12/04/23 12:28 Last Admin: 12/04/23 12:49 Dose: 50 ml Documented By: [place] Ethambutol HCl (Ethambutol Hcl 400 Mg Tab) 1,000 mg PO NOW STA Stop: 12/04/23 14:39 Last Admin: 12/04/23 16:19 Dose: Not Given Documented By: BENJAMÍN Ethambutol HCl (Ethambutol Hcl 100 Mg Tab) 850 mg PO ONE ONE Stop: 12/04/23 16:31 Last Admin: 12/04/23 17:31 Dose: Not Given Documented By: BENJAMÍN Sodium Chloride (Nss) 1,000 mls @ 999 mls/hr IV .Q1H1M JANES Stop: 12/04/23 11:45 Last Infusion: 12/04/23 11:50 Dose: Infused Documented By: [place] Admin: 12/04/23 10:49 Dose: 999 mls/hr Documented By: Infusion: 12/04/23 10:48 Dose: Infused Documented By: Admin: 12/04/23 09:55 Dose: 999 mls/hr Documented By: CARLOTA Acetaminophen (Ofirmev) 1,000 mg in 100 mls @ 400 mls/hr IV NOW STA Stop: 12/04/23 09:49 Last Infusion: 12/04/23 10:32 Dose: Infused Documented By: Admin: 12/04/23 10:17 Dose: 400 mls/hr Documented By: CARLOTA Piperacillin Sod/Tazobactam Sod (Zosyn) 4.5 gm in 100 mls @ 200 mls/hr IV NOW ONE Stop: 12/04/23 10:59 Last Infusion: 12/04/23 11:20 Dose: Infused Documented By: [place] Admin: 12/04/23 10:49 Dose: 200 mls/hr Documented By: CARLOTA Azithromycin 500 mg/ Dextrose 255 mls @ 127.5 mls/hr IV NOW STA Stop: 12/04/23 12:35 Last Infusion: 12/04/23 15:23 Dose: Infused Documented By: Admin: 12/04/23 11:35 Dose: 127.5 mls/hr Documented By: [place] Magnesium Sulfate/Dextrose (Magnesium Sulfate / D5w) 1 gm in 100 mls @ 100 mls/hr IV Q1H JANES Stop: 12/04/23 14:27 Last Infusion: 12/04/23 15:23 Dose: Infused Documented By: Admin: 12/04/23 13:37 Dose: 100 mls/hr Documented By: [place] Infusion: 12/04/23 13:37 Dose: Infused Documented By: [place] Admin: 12/04/23 12:53 Dose: 100 mls/hr Documented By: [place] Dextrose/Sodium Chloride (D5w And Nss) 1,000 mls @ 999 mls/hr IV .Q1H1M STA Stop: 12/04/23 14:22 Last Infusion: 12/04/23 15:23 Dose: Infused Documented By: Admin: 12/04/23 13:37 Dose: 999 mls/hr Documented By: [place] Hydrocortisone Sodium (Succinate 100 mg/ Syringe) 2 mls @ 4 mls/min IV NOW STA Stop: 12/04/23 15:33 Last Admin: 12/04/23 16:03 Dose: 4 mls/min Documented By: BENJAMÍN Vancomycin HCl 1,500 mg/ (Sodium Chloride) 530 mls @ 200 mls/hr IV NOW ONE Stop: 12/04/23 22:21 Last Admin: 12/04/23 22:14 Dose: 200 mls/hr Documented By: AIDEN Ioversol (Optiray 320 125ml) 120 ml IV ONCE ONE Stop: 12/04/23 12:34 Last Admin: 12/04/23 12:25 Dose: 120 ml Documented By: MYNOR Trimethoprim/Sulfamethoxazole (Sulfamethoxazole/Trimethoprim Ds 800/160mg Tab) 1 tab PO NOW ONE Stop: 12/04/23 14:34 Last Admin: 12/04/23 16:05 Dose: 1 tab Documented By: BENJAMÍN Imaging Data Radiologist's Impression: Abdomen/Pelvis CT 12/04/23 10:26 CT abd pelvis IV con only CLINICAL HISTORY: abd/thigh pain, HIV, fever/sepsis TECHNIQUE: Helical axial images of the abdomen and pelvis were obtained and displayed. Automated dose lowering techniques and/or adjustment according to patient size were utilized for this exam. This exam was performed with intravenous contrast. CT DOSE: 698.43 mGy.cm COMPARISON: Comparison is made to CT abdomen pelvis 11/06/2023 FINDINGS: Lower chest: For findings above the diaphragm, please see CT chest performed same day. Liver: Unremarkable. No focal lesions are seen. Gallbladder and biliary tree: No calcified gallstones. Normal caliber wall. No intra- or extrahepatic biliary ductal dilation. Pancreas: Unremarkable, no focal lesions. Spleen: Unremarkable. Adrenals: Unremarkable. Kidneys and ureters: Unremarkable. Bladder: Unremarkable. Reproductive organs: Unremarkable. Bowel: The appendix is well visualized due to paucity of intraperitoneal fat. No secondary signs of acute appendicitis. Lymph nodes Retroperitoneal: Unremarkable. Pelvic: Unremarkable. Mesenteric: Unremarkable. Peritoneum: There is possibly a peritoneal fat and the appearance of edema in the peritoneum. Vessels: Unremarkable. Abdominal wall: Body wall edema is seen. Bones: Unremarkable. IMPRESSION: No acute abnormalities to explain abdominal and thigh pain. There is moderate wall edema and mild ascites compatible with third spacing. ACT 112: Negative or not required by law. Electronically signed by: Karl Gillespie M.D. 12/04/2023 12:46 PM Chest CTA 12/04/23 10:26 CT angio chest PE protocol CLINICAL HISTORY: HIV, hypotension, fever, immobility, r/o PE TECHNIQUE: Multidetector row helical CT of the chest was performed with angiographic protocol. Coronal and sagittal reformations were obtained. Coronal and sagittal MIPS were obtained from the axial data set and were submitted for review. Automated dose lowering techniques and/or adjustment according to patient size were utilized for this exam. Comparison: Comparison is made to CT chest 05/09/2023 FINDINGS: Lungs and pleura: Bronchiectasis and emphysema are seen. Mild thickening of the bronchial allen also noted. Previously noted pulmonary nodules in the right lower lobe are no longer seen and may represent resolving infectious/inflammatory process. Heart and pericardium: Heart size is normal. No pericardial effusion. Vessels: No evidence of pulmonary embolism. Mediastinum and sussy: Unremarkable. Chest wall and lower neck: Unremarkable. Abdomen: Unremarkable. Bones: Unremarkable. IMPRESSION: 1. No acute abnormality and in particular no evidence of pulmonary embolus. 2. Redemonstration of emphysema, bronchiectasis, and scarring. ACT 112: Negative or not required by law. Electronically signed by: Karl Gillespie M.D. 12/04/2023 12:55 PM Discharge Plan Visit Data Chief Complaint: Illness Stated Complaint: SEPSIS, FEVER, HYPOTENSION ED Provider: Kumar Caldwell Discharge Problem: Sepsis, HIV (human immunodeficiency virus infection), Hypotension, Anemia, Mycobacterium avium complex, Infection due to parainfluenza virus 3, Enterovirus infection Patient Disposition: Admitted As Inpatient Discharge Instructions Interventions: ED Discharge Assessment Last Done: 12/04/23 18:50
[2023-12-04] MEDS: SODIUM CHLORIDE 0.9% 1,000 ML IV SCH (09:55)
[2023-12-04] MEDS: ACETAMINOPHEN 1,000 MG/100 ML VIAL IV STA (10:17)
[2023-12-04 10:23] LABS: Basophils # (auto) 0.03 K/uL (0.00-0.20); Basophils % (auto) 0.4 %; Eosinophils # (auto) 0.03 K/uL (0.00-0.50); Eosinophils % (auto) 0.4 %; Hematocrit (blood only) 22.3 % (42.0-52.0); Immature Granulocytes # (auto) 0.15 K/uL (0.01-0.20); Immature Granulocytes % (auto) 2.1 %; Lymphocytes % (auto) 9.8 %; Mean Corpuscular Hemoglobin 21.7 pg (25.0-34.0); Mean Corpuscular Hgb Conc 31.4 g/dL (32.0-36.0); Monocytes # (auto) 0.25 K/uL (0.11-0.59); Monocytes % (auto) 3.5 %; Neutrophils # (auto) 5.98 K/uL (1.40-6.50); Neutrophils % (auto) 83.8 %; RDW Coefficient of Variation 22.8 % (11.5-14.5); RDW Standard Deviation 56.1 fL (36.4-46.3); Red Blood Count 3.23 M/uL (4.70-6.10); White Blood Count 7.14 K/ul (4.8-10.8)
[2023-12-04] MEDS ORDERED: SODIUM CHLORIDE 0.9% 250 ML IV PRN ×2 (10:33→12:23)
[2023-12-04 10:40] LABS: Alanine Aminotransferase 10 U/L (7-52); Albumin Level 2.1 gm/dl (3.4-5.0); Alkaline Phosphatase 87 U/L (34-104); Anion Gap 6 (3-11); Aspartate Aminotransferase 21 U/L (13-39); BUN Creatinine Ratio 13.6 (10-20); Bilirubin Direct 0.2 mg/dl (0-0.2); Bilirubin,Total 0.3 mg/dl (0.2-1.0); Blood Urea Nitrogen 15 mg/dl (6-23); Calcium 7.9 mg/dl (8.6-10.3); Carbon Dioxide 24 mmol/L (21-32); Chloride 100 mmol/L (98-107); Creatinine Clr Calc Pharmacy 79.3 ml/min; Est GFR (African American) 96.1 ml/min; Est GFR (Non-African American) 82.9 ml/min; Glucose 60 mg/dl (70-99(Fasting)); Magnesium 1.6 mg/dl (1.7-2.4); Phosphorus 3.2 mg/dl (2.5-4.9); Sodium 130 mmol/L (136-145); Total Protein 7.3 gm/dl (6.0-8.3)
[2023-12-04 10:42] LABS: Mean Platelet Volume 9.9 fL (9.4-12.4); Platelet Count 179 K/uL (130-400)
[2023-12-04 10:45] LABS: Anisocytosis Present; Hypochromasia Present; Rouleaux 1+; Tear Drop Cells 1+
[2023-12-04 10:46] LABS: Troponin I High Sensitivity 2.8 pg/ml (0-20)
[2023-12-04] MEDS: PIPERACILLIN/TAZOBACTAM 4.5 GM/100 ML BAG IV ONE (10:49)
--- NOTE | 2023-12-04 10:51 | XRay Report ---
XR chest 1V portable HISTORY: Sepsis COMPARISON: Chest 07/06/2023. FINDINGS: No pneumothorax. No pleural effusions. The heart is normal in size. No acute fractures. Sma ll focal density within the left lower lobe is new compared the prior study. The right lung is clear. No evidence for pulmonary edema. IMPRESSION: There is a new small focal density within the left lower lobe which may represent a pneumonia. This w ill be better assessed on the same day chest CTA. ACT 112: Negative or not required by law. Electronically signed by: Paco Pugh M.D. 12/04/2023 10:50 AM
[2023-12-04 10:53] LABS: INR 1.1 (0.9-1.1); Prothrombin Time 11.9 Seconds (9.0-12.0)
[2023-12-04 10:54] LABS: Thyroid Stimulating Hormone 3.009 uIu/ml (0.300-4.500)
[2023-12-04 11:12] LABS: Reticulocyte % 0.18 % (0.50-2.00); Reticulocytes # 0.01 10^6/uL (0.020-0.100)
[2023-12-04 11:17] LABS: Creatine Kinase 11 U/L (30-223); Iron < 10 mcg/dl (35-175); Transferrin < 95 mg/dl (200-360)
[2023-12-04 11:21] LABS: Ferritin 915.6 ng/ml (8-388)
[2023-12-04 11:21] LABS: Adenovirus PCR Not Detected (NotDetected); Bordetella parapertussis PCR Not Detected (NotDetected); Bordetella pertussis PCR Not Detected (NotDetected); Chlamydia pneumoniae PCR Not Detected (NotDetected); Coronavirus 229E PCR Not Detected (NotDetected); Coronavirus CoV-2 (COVID19)PCR Not Detected (NotDetected); Coronavirus HKU1 PCR Not Detected (NotDetected); Coronavirus NL63 PCR Not Detected (NotDetected); Coronavirus OC43PCR Not Detected (NotDetected); Human Metapneumovirus PCR Not Detected (NotDetected); Influenza A PCR Not Detected (NotDetected); Influenza B PCR Not Detected (NotDetected); Mycoplasma pneumoniae PCR Not Detected (NotDetected); Parainfluenza Virus 1 PCR Not Detected (NotDetected); Parainfluenza Virus 2 PCR Not Detected (NotDetected); Parainfluenza Virus 3 PCR DETECTED (NotDetected); Parainfluenza Virus 4 PCR Not Detected (NotDetected); Respiratory Syncytial VirusPCR Not Detected (NotDetected); Rhinovirus/Enterovirus PCR DETECTED (NotDetected)
[2023-12-04] MEDS: AZITHROMYCIN 500 MG in DEXTROSE 5% 250 ML IV STA (11:35)
[2023-12-04] MEDS: OPTIRAY 320 125ml IV ONE (12:25)
[2023-12-04 12:44] LABS: Appearance Urine Cloudy (Clear); Bacteria Urine Automated None Seen (None Seen); Bilirubin Urine Negative (Negative); Blood Urine Negative (Negative); Color Urine Yellow; Epithelial Cell Urine Auto 0-2 /hpf (0-2); Glucose Urine UA Negative (Negative); Granular Casts Urine Present /lpf (None Prsent); Hyaline Casts Urine Present /lpf (None Presnt); Ketones Urine Negative (Negative); Leukocyte Esterase Urine Negative (Negative); Mucus Urine Present (None Prsent); Nitrite Urine Negative (Negative); Protein Urine Trace (Negative); RBC Urine Automated 0-2 /hpf (0-2); Urobilinogen Urine Negative (Negative); WBC Urine Automated 0-5 /hpf (0-5); pH Urine 5.5 (4.5-7.5)
--- NOTE | 2023-12-04 12:47 | CT Scan Report ---
CT abd pelvis IV con only CLINICAL HISTORY: abd/thigh pain, HIV, fever/sepsis TECHNIQUE: Helical axial images of the abdomen and pelvis were obtained and displayed. Automated dose lowering techniques and/or adjustment according to patient size were utilized for this exam. This e xam was performed with intravenous contrast. CT DOSE: 698.43 mGy.cm COMPARISON: Comparison is made to CT abdomen pelvis 11/06/2023 FINDINGS: Lower chest: For findings above the diaphragm, please see CT chest performed same day. Liver: Unremarkable. No focal lesions are seen. Gallbladder and biliary tree: No calcified gallstones. Normal caliber wall. No intra- or extrahepatic biliary ductal dilation. Pancreas: Unremarkable, no focal lesions. Spleen: Unremarkable. Adrenals: Unremarkable. Kidneys and ureters: Unremarkable. Bladder: Unremarkable. Reproductive organs: Unremarkable. Bowel: The appendix is well visualized due to paucity of intraperitoneal fat. No secondary signs of a cute appendicitis. Lymph nodes Retroperitoneal: Unremarkable. Pelvic: Unremarkable. Mesenteric: Unremarkable. Peritoneum: There is possibly a peritoneal fat and the appearance of edema in the peritoneum. Vessels: Unremarkable. Abdominal wall: Body wall edema is seen. Bones: Unremarkable. IMPRESSION: No acute abnormalities to explain abdominal and thigh pain. There is moderate wall edema and mild asc ites compatible with third spacing. ACT 112: Negative or not required by law. Electronically signed by: Karl Gillespie M.D. 12/04/2023 12:46 PM
[2023-12-04] MEDS: DEXTROSE 50% 50 ML SYRINGE IV ONE (12:49)
[2023-12-04] MEDS: MAGNESIUM SULFATE / D5W 1 GM/100 ML BAG IV SCH (12:53)
--- NOTE | 2023-12-04 12:58 | CT Scan Report ---
CT angio chest PE protocol CLINICAL HISTORY: HIV, hypotension, fever, immobility, r/o PE TECHNIQUE: Multidetector row helical CT of the chest was performed with angiographic protocol. Al l and sagittal reformations were obtained. Coronal and sagittal MIPS were obtained from the axial frank a set and were submitted for review. Automated dose lowering techniques and/or adjustment according to patient size were utilized for this exam. Comparison: Comparison is made to CT chest 05/09/2023 FINDINGS: Lungs and pleura: Bronchiectasis and emphysema are seen. Mild thickening of the bronchial allen also noted. Previously noted pulmonary nodules in the right lower lobe are no longer seen and may represen t resolving infectious/inflammatory process. Heart and pericardium: Heart size is normal. No pericardial effusion. Vessels: No evidence of pulmonary embolism. Mediastinum and sussy: Unremarkable. Chest wall and lower neck: Unremarkable. Abdomen: Unremarkable. Bones: Unremarkable. IMPRESSION: 1. No acute abnormality and in particular no evidence of pulmonary embolus. 2. Redemonstration of emphysema, bronchiectasis, and scarring. ACT 112: Negative or not required by law. Electronically signed by: Karl Gillespie M.D. 12/04/2023 12:55 PM
[2023-12-04] MEDS: D5W AND NSS 1,000 ML IV STA (13:37)
--- NOTE | 2023-12-04 14:14 | History & Physical Report ---
Date of Service December 04, 2023 Assessment & Plan (1) Sepsis: Plan: Sepsis Suspect due to viral etiology with both rhino/entero and para flu positive however superimposed bacterial infection/opportunistic infection cannot be ruled out and patient is at increased risk due to HIV with CD count less than 100. Continue broad antibiotic coverage with Zosyn, azithromycin, ethambutol. CTA chest/CTA/P without acute findings. 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 Culture 05/15/2023: Moxifloxacin resistant EMILIANO greater than 4, clarithromycin sensitive EMILIANO of 4, amikacin intermediate resistance EMILIANO 32, linezolid resistant EMILIANO greater than 32 Remains more hypotensive than normal despite 3 L crystalloid resuscitation in ER. Random cortisol technically normal although disproportionate with degree of hypotension/illness. Hydrocortisone given for crystalloid refractory hypotension Lactate normal on admission Patient is with baseline blood pressure systolic 80s/90s at baseline. As lactate is normal and does not show evidence of endorgan hepatic/renal dysfunction is currently perfusing. Will trend biomarkers, reviewed with ICU and would not recommend vasopressors to target MAP at this time in absence of evidence of endorgan dysfunction or hypotensive symptoms continued Azithromycin, ethambutol, Zosyn, Bactrim continued - ID Consulted stat. ID connect: [phone] notified. (2) HIV (human immunodeficiency virus infection): Plan: HIV/AIDS -History of HIV on Biktarvy. Last CD4 count11/07/2023 was 71. HIV quant at the time was not detected., Last detectable 05/13/2023 Patient reports he has not been taking MAC treatment, although reports he does take his Biktarvy/Bactrim intermittently. Reports he does not take MAC treatment when he "does not feel good " Bactrim, Biktarvy CD4/CD8, HIV quant sent ID consulted (3) Anemia: Plan: Chronic anemia Hemoglobin 7.0, transfuse 1 unit with repeat pending - MCV low?thalassemia Patient is pending bone marrow by biopsy for? Aplastic anemia as outpatient. Discussed w/ hemeonc, consistent with AOCD. Transfuse as needed, no iron indicated. Transfuse as needed for symptomatic anemia or hemoglobin less than 7. Agree w/ marrow bx as outpatient. No chest pain/syncope/presyncope Patient does have a antibody screen positive and undetectable transferrin receptor. Direct Melanie is pending; lower suspicion for hemolysis given normal bilirubin (4) Mycobacterium avium complex: Plan: History of disseminated MAC hx MAC on rifampin/azithromycin. Culture 05/15/2023: Moxifloxacin resistant NM C greater than 4, clarithromycin sensitive EMILIANO of 4, amikacin intermediate resistance EMILIANO 32, linezolid resistant EMILIANO greater than 32 Patient has not been taking his ethambutol or azithromycin (5) Emphysema lung: Plan: - Seen on CT - Continue incruse - No wheezing on admitting exam Plan DVT prophylaxis: Fungal prophylaxis contraindicated in the setting of anemia requiring transfusion Disposition: PCU CODE STATUS: Full code Diet: Regular, boost History of Present Illness Primary Care Provider: DIANA Tonya Pimentel is a 43-year-old male with past medical history of HIV and disseminated MAC with intermittent compliance with medications reportedly compliant with Biktarvy for the last year but with last CD4 count of 71 who presents by ambulance for fever, hypotension, and fatigue. Patient was recently admitted and discharged 11/09 for similar illness ultimately thought to be due to enteritis. As his CD4 count was less than 100 no intervention was recommended per GI. He did have an infectious disease consult at that time and was recommended to continue Ethambutol although dose adjusted to 1000 mg, and to continue azithromycin along with Bactrim PJP prophylaxis. During that admission CT showed enteritis, did not show adenopathy consistent with disseminated MAC however due to his history this was considered within the differential. Patient's baseline blood pressures range approximately [address]10 at baseline. On admission patient's blood pressures 80s systolic, received 1 L NSS, 1 L D5 NSS. Hemoglobin had decreased from 8.8 down to 7.0. Ordered 1 unit for transfusion for hypotension with progressive chronic microcytic anemia. Ferritin elevated, transferrin below the limit of detection. Random cortisol pending. Patient is parainfluenza and entero-/rhinovirus positive on admission. Lactate 0.9, normal. AB W sepsis recommendations 1900 cc. This has been completed with 20 to 73 cc by time of hospitalist consultation. Last echo 04/2023 with grade 1 diastolic dysfunction, EF 60-65% Pending 2 unit transfusion for rest of chronic anemia with hypotension, hemoglobin 7.0. Presnts with 1 day of fever, fatigue, hypotension, tachycardia. History HIV with low CD4 counts. Reports since last d/c has been noncompliant with ethambutol/azithromycin. or Biktarvy. In ER: Zosyn + IV azithro. Pending bactrim and ethambutol. ?Lingular density at CTA/RML. Pending bone marrow biopsy as outpatient for aplastic anemia. Allergies Allergy/AdvReac Type Severity Reaction Status Date / Time No Known Allergies Allergy Verified 12/04/23 14:54 Home Medications Medication Instructions Recorded Confirmed Type cholecalciferol (vitamin D3) 25 25 mcg PO DAILY 05/09/23 12/04/23 History mcg (1,000 unit) tablet ergocalciferol (vitamin D2) 1,250 50,000 unit PO WK 05/09/23 12/04/23 History mcg (50,000 unit) capsule (Drisdol) sulfamethoxazole 800 1 tab PO DAILY 05/09/23 12/04/23 History mg-trimethoprim 160 mg tablet (Bactrim DS) folic acid 1 mg tablet 1 mg PO DAILY #30 tabs 05/30/23 12/04/23 Rx umeclidinium 62.5 mcg/actuation 1 inh inhalation DAILY #1 inhaler 05/30/23 12/04/23 Rx blister powder for inhalation (Incruse Ellipta) bictegravir 30 mg-emtricitabine 1 tab PO DAILY 07/18/23 12/04/23 History 120 mg-tenofovir alafenam 15 mg tablet (Biktarvy) guaifenesin 100 mg/5 mL oral liquid 200 mg PO Q4H PRN Cough 07/18/23 12/04/23 History azithromycin 500 mg tablet 500 mg PO DAILY 11/06/23 12/04/23 History brimonidine 0.15 % eye drops 1 drp OPL BID 11/06/23 12/04/23 History cholestyramine (with sugar) 4 gram 4 g PO BID 11/06/23 12/04/23 History powder for susp in a packet (Questran) cyanocobalamin (vitamin B-12) 1,000 mcg IM .Q2WKS 11/06/23 12/04/23 History 1,000 mcg/mL injection solution dicyclomine 10 mg capsule 10 mg PO BID PRN ABD PAIN NEEDED 11/06/23 12/04/23 History difluprednate 0.05 % eye drops 1 drp OPB DIRECTED 11/06/23 12/04/23 History (Durezol) ethambutol 100 mg tablet 50 mg (1/2 x 100 mg) PO DAILY 30 11/10/23 12/04/23 Rx days #15 tabs ethambutol 400 mg tablet 800 mg (2 x 400 mg) PO DAILY 30 11/10/23 12/04/23 Rx (Myambutol) days #60 tabs Past Med/Surg History Problem List (Updated 12/04/23 @ 15:18 by Ortiz Ceballos MD) Emphysema lung Mycobacterium avium complex Enteritis Abdominal pain (Acute) Anemia (Acute) Acute hyponatremia (Acute) Skin lesion of chest wall Dyspnea Irritable bowel syndrome Vision loss of left eye Abnormal computerized tomography of biliary tract LVH (left ventricular hypertrophy) Abnormal CT scan, chest Diarrhea (Acute) Sepsis (Acute) Cough (Acute) Anemia (Acute) Hypotension (Acute) HIV (human immunodeficiency virus infection) Medical History Hyperlipemia Vision loss of left eye LVH (left ventricular hypertrophy) Abnormal CT scan, chest Iron deficiency anemia Vitamin D deficiency HIV (human immunodeficiency virus infection) Social History Smoking Status: Never smoker Second Hand Exposure: No; Do You Dip or Chew Tobacco: No; Hx Alcohol Use: No Hx Substance Use: No Preferred Language: Citizen Of [place] Communication Ability: Effective Media Planner / Buyer Required: No Beliefs That Will Affect Care: Church Church Beliefs: Holiness Current Living Situation: Other Current Living Situation Comment: Prisoner at [facility] Feels Safe at Home: Yes Assistive Devices: None Physical Exam Physical Exam: General: Alert and oriented x 3. Cachectic HEENT: Atraumatic, normocephalic. Vision/hearing intact Pulm: CTAB A&P. -wheezes, -rales, -rhonchi. Symmetrical chest rise. No increased work of breathing. No respiratory distress. Cardiac: RRR, -mrg. Radial pulses intact and symmetrical. Abdominal: Mild tenderness overlying superficial musculature of left lower abdominal quadrant without rebound/guarding. No tenderness to deep palpation Extremities: Thin. No cellulitis/ulcerations appreciated Results & Data Results & Data Vital Signs (Past 12 Hours) Vital Signs Temp Pulse Pulse Resp BP BP Pulse Ox 12/04/23 11:45 68 6 L 96 12/04/23 11:30 67 14 97 12/04/23 11:30 79/61 L 12/04/23 11:15 66 13 98 12/04/23 11:00 83/52 L 12/04/23 11:00 60 6 L 98 12/04/23 10:45 64 0 L 100 12/04/23 10:30 84/60 L 12/04/23 10:30 69 12 12/04/23 10:26 69 12/04/23 10:00 69 11 L 83/57 L 12/04/23 09:45 12/04/23 09:45 36.6 C 73 11 L 80/56 L 100 O2 Del Method 12/04/23 11:45 12/04/23 11:30 12/04/23 11:30 12/04/23 11:15 12/04/23 11:00 12/04/23 11:00 12/04/23 10:45 12/04/23 10:30 12/04/23 10:30 Room Air 12/04/23 10:26 12/04/23 10:00 12/04/23 09:45 Room Air 12/04/23 09:45 Room Air PG Care Time/CCT Total # of Minutes Spent Total Time Spent with Patient: Total time spent is greater than 50% in coordination of care (as documented) at patient's floor/unit and/or counseling patient: Coding Level of Care Code 51046 INT INP/OBS CARE 3/75MIN Diagnoses Sepsis A41.9 HIV (human immunodeficiency virus infection) B20 Anemia D64.9 Anemia type: unspecified type Mycobacterium avium complex A31.0 Emphysema lung J43.9 (3) Anemia Anemia type: unspecified type Qualified Code(s): D64.9 - Anemia, unspecified
[2023-12-04] MEDS ORDERED: ETHAMBUTOL HCL 100 MG PO STA (14:33)
[2023-12-04] MEDS ORDERED: HYDROCORTISONE SOD SUCCINATE 100 MG/2 ML VIAL IV STA (14:54)
[2023-12-04] MEDS: HYDROCORTISONE SOD 100 MG in SYRINGE 0 ML IV STA (16:03)
[2023-12-04] MEDS: SULFAMETHOXAZOLE/TRIMETHOPRIM DS 800/160MG TAB PO ONE (16:05)
--- NOTE | 2023-12-04 16:12 | Electrocardiogram Report ---
Test Reason : Blood Pressure : / mmHG Vent. Rate : 075 BPM Atrial Rate : 075 BPM P-R Int : 160 ms QRS Dur : 074 ms QT Int : 368 ms P-R-T Axes : 074 036 061 degrees QTc Int : 410 ms Normal sinus rhythm Normal ECG When compared with ECG of 06-NOV-2023 15:57, No significant change was found Confirmed by Gopi Alarcon ([id number]) on 12/04/2023 4:11:36 PM Referred By: [facility] Confirmed By:Gopi Alarcon
[2023-12-04] MEDS: ETHAMBUTOL HCL 400 MG TAB PO STA (16:19)
[2023-12-04] MEDS: ETHAMBUTOL HCL 100 MG PO ONE (17:31)
[2023-12-04] MEDS ORDERED: DICYCLOMINE HCL 10 MG CAP PO PRN (19:19)
[2023-12-04] MEDS ORDERED: guaiFENesin SUGAR FREE 100 MG/5 ML UDC PO PRN (19:19)
[2023-12-04] MEDS ORDERED: VANCOMYCIN CONSULT ACTIVE PRN (19:43)
[2023-12-04] MEDS: PIPERACILLIN/TAZOBACTAM 4.5 GM in DEXTROSE 5% MINI-B 100 ML IV SCH (20:10)
[2023-12-04] MEDS: BRIMONIDINE TARTRATE-P 0.15% 5 ML BTL OPL SCH (20:29)
[2023-12-04] MEDS ORDERED: HYDROCORTISONE SOD SUCCINATE 100 MG/2 ML VIAL IV SCH (21:00)
[2023-12-04] MEDS: CHOLESTYRAMINE LIGHT 4 GM PKT PO SCH (21:20)
[2023-12-04] MEDS: HYDROCORTISONE SOD 50 MG in SYRINGE 0 ML IV SCH (21:20)
[2023-12-04] MEDS: VANCOMYCIN HCL 1,500 MG in SODIUM CHLORIDE 0.9% 500 ML IV ONE (22:14)
[2023-12-04 23:37] LABS: Hematocrit (blood only) 30.6 % (42.0-52.0); Hemoglobin 9.8 g/dl (14.0-18.0)
[2023-12-05] MEDS ORDERED: VANCOMYCIN HCL 1,000 MG in SODIUM CHLORIDE 0.9% 500 ML IV SCH (04:00)
[2023-12-05] MEDS ORDERED: VANCOMYCIN CONSULT ACTIVE PRN (07:58)
[2023-12-05] MEDS ORDERED: VANCOMYCIN HCL 1,500 MG in SODIUM CHLORIDE 0.9% 500 ML IV SCH (08:00)
[2023-12-05] MEDS: AZITHROMYCIN 250 MG TAB PO SCH (08:08)
[2023-12-05] MEDS: SULFAMETHOXAZOLE/TRIMETHOPRIM DS 800/160MG TAB PO SCH (08:09)
[2023-12-05] MEDS: CHOLECALCIFEROL 25 MCG (1000 UNITS) TAB PO SCH (08:09)
[2023-12-05] MEDS: ETHAMBUTOL HCL 400 MG TAB PO SCH (08:09)
[2023-12-05] MEDS: ETHAMBUTOL HCL 100 MG PO SCH (08:10)
[2023-12-05] MEDS: FOLIC ACID 1 MG TAB PO SCH (08:10)
[2023-12-05] MEDS: BIKTARVY PO SCH (08:12)
[2023-12-05 08:17] LABS: BUN Creatinine Ratio 14.9 (10-20); Calcium 7.9 mg/dl (8.6-10.3); Creatinine Clr Calc Pharmacy 91.8 ml/min; Est GFR (African American) 124.2 ml/min; Est GFR (Non-African American) 107.2 ml/min; Potassium 3.5 mmol/L (3.5-5.1)
[2023-12-05] MEDS: UMECLIDINIUM BROMIDE 62.5MCG/BLISTER 7 PUFFS/INHALER INH SCH (08:20)
[2023-12-05 08:23] LABS: Hematocrit (blood only) 31.7 % (42.0-52.0); Hemoglobin 10.3 g/dl (14.0-18.0); Mean Corpuscular Hemoglobin 23.2 pg (25.0-34.0); Mean Corpuscular Hgb Conc 32.5 g/dL (32.0-36.0); Mean Corpuscular Volume 71.4 fL (80.0-100.0); Mean Platelet Volume 9.2 fL (9.4-12.4); Platelet Count 160 K/uL (130-400); RDW Coefficient of Variation 23.3 % (11.5-14.5); RDW Standard Deviation 59.2 fL (36.4-46.3); Red Blood Count 4.44 M/uL (4.70-6.10); White Blood Count 5.95 K/ul (4.8-10.8)
[2023-12-05 08:24] LABS: Anisocytosis Present; Basophils # (auto) 0.02 K/uL (0.00-0.20); Basophils % (auto) 0.3 %; Echinocytes 1+; Immature Granulocytes # (auto) 0.12 K/uL (0.01-0.20); Lymphocytes # (auto) 0.49 K/uL (1.20-3.40); Lymphocytes % (auto) 8.2 %; Monocytes % (auto) 1.7 %; Neutrophils # (auto) 5.22 K/uL (1.40-6.50); Neutrophils % (auto) 87.8 %; Schistocytes 1+
--- NOTE | 2023-12-05 08:35 | Pharmacy Report ---
Pharmacy PK ABX Note - Date of Service December 05, 2023 - Assessment and Plan Assessment 43 year old M receiving IV Zosyn + Vancomycin for treatment of sepsis/pneumonia. HIV w/ CD4 count < 100. Bactrim/ethambutol/azithromycin PO, noncompliance. Pertinent microbiologic data includes: Positive MRSA Nasal Swab, Blood cultures pending. CD4/CD8/Quant repeat is pending. Lactate normal. Procal 1.87. CTA chest/CTA/P without acute findings. History of MAC on rifampin/azithromycin. ID Consult Day # 2 of antimicrobial therapy. Plan Vancomycin * Loading dose: 1500 mg IV x 1 last night * Maintenance dose: 1000 mg IV every 12 hours * Regimen is predicted to achieve target AUC/EMILIANO of 400-600 mg/L.hr * Pharmacy has transitioned to AUC monitoring for vancomycin. AUC/EMILIANO is the preferred PK/PD target and is associated with decreased risk of nephrotoxicity compared to traditional trough targets. * Trough level ordered for: 12/06/23 Zosyn 4.5g IV Q8H Bactrim DS 1 tab PO daily Ethambutol 850mg PO daily Azithromycin 500mg PO daily Pharmacy will continue to follow and will adjust dose/frequency as necessary. Thank you.
[2023-12-05] MEDS: VANCOMYCIN HCL 1,000 MG in SODIUM CHLORIDE 0.9% 250 ML IV SCH (09:30)
--- NOTE | 2023-12-05 09:35 | Infectious Disease Consult ---
Date of Consultation December 05, 2023 Assessment & Plan (1) Enterovirus infection: (2) Infection due to parainfluenza virus 3: (3) Mycobacterium avium complex: (4) Hypotension: (5) Emphysema lung: Plan 43yo incarcerated M with h/o HIV (CD4 71, VL UD in in 10/2023, on Biktarvy and Bactrim ppx), vitamin D deficiency, anemia (awaiting outpatient BM Bx), PJP pneumonia (2019), prior diagnosis of MAC PNA and dissemination 2021, CMV infection, admission 05/09-05/30/23 with cough x 1mo f/w disseminated MAC, currently tx with azithromycin and ethambutol, recent admission 11/05-11/09 with enteritis who presented 12/03 with fever, hypotension and fatigue. He reportedly has been noncompliant with his MAC therapy for <2wks due to too much pain and fatigue to go obtain his meds. He reported ongoing back, hip, abdominal, and thigh pain. Here, he was afebrile. BPs ranging from 60-80s and now 90s. Sats well on RA. WBC 7.14, Cr 1.10, LFT wnl. Lactate wnl. PCT 1.87. UA negative. RPP positive for Parainfluenza 3 and entero/rhinovirus. CXR with new small focal density in the LLL which may represent PNA. CTAP with moderate wall edema and mild ascites. Chest CT with no acute abnormalities, redemonstration of emphysema, bronchiectasis, and scarring. He has been started on empiric zosyn. ID consulted for assistance. Diffuse aches likely in setting of viral infection. Chest imaging doesnt suggest consolidation. If blood cx remain negative, I would favor stopping further zosyn as well and treating supportively for viral illness. I did discuss with patient regarding compliance with MAC therapy, which he seems to understand. Unclear if this will be possible since he seems to have issues going up to the [facility] to get his medications. His last viral load was undetectable. Despite low CD4 count, an undetectable VL suggests proper ART therapy and compliance. Therefore continuing on biktarvy and Bactrim ppx. 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 If questions or concerns, contact Infectious Disease Call Center . Jessica Thompson MD [facility], Division of Infectious Diseases IDConnect: [phone] Consultation Information Consultation was provided via telemedicine using two-way real-time interactive telecommunication between the patient and the telemedicine provider. For the duration of the visit, the provider was performing the assessment from a different facility than the patient. This includesuse of bluetooth stethoscope forauscultationperformed by the telepresenter that the telemedicine provider can hear if described in the physical exam. Patcher Helper contact information: Please call ID Connect Call Center . (Phone Number For Physician Use Only) After establishing a telemedicine visit, patient was: Patient was verified with two unique identifiers, Patient/authorized rep acknowledged consent and understanding and Gave permission to continue telehealth session Time Spent with Patient: Initial => 75 min History of Present Illness Reason for Consultation: HIV, CD4<100, sepsis Attending Physician: Stephanie Brock MD History of Present Illness 43yo incarcerated M with h/o HIV (CD4 71, VL UD in in 10/2023, on Biktarvy and Bactrim ppx), vitamin D deficiency, anemia (awaiting outpatient BM Bx), PJP pneu monia (2019), prior diagnosis of MAC PNA and dissemination 2021, CMV infection, admission 05/09-05/30/23 with cough x 1mo f/w disseminated MAC, currently tx with azithromycin and ethambutol, recent admission 11/05-11/09 with enteritis who presented 12/03 with fever, hypotension and fatigue. He reportedly has been noncompliant with his medication since his last discharge and stated that he was in too much pain and fatigue to go obtain his meds. He reported ongoing back, hip, abdominal, and thigh pain. Here, he was afebrile. BPs ranging from 60-80s and now 90s. Sats well on RA. WBC 7.14, Cr 1.10, LFT wnl. Lactate wnl. PCT 1.87. UA negative. RPP positive for Parainfluenza 3 and entero/rhinovirus. CXR with new small focal density in the LLL which may represent PNA. CTAP with moderate wall edema and mild ascites. Chest CT with no acute abnormalities, redemonstration of emphysema, bronchiectasis, and scarring. He has been started on empiric zosyn. ID consulted for assistance. On evaluation, patient reports that he has diffuse pains including in his abdomen, back, and bone aches. He feels like his abdomen is more swollen. He says he hasnt taken his azithromycin/ethambutol for >2 weeks since he has to go to the [facility] for those and had been in too much pain to go there. He has been taking Bactrim and biktarvy since he has them in his cell. Has had formed stools, notes one loose stool earlier. No SOB, has a cough. No chest pain or sore throat. Allergies Allergy/AdvReac Type Severity Reaction Status Date / Time No Known Allergies Allergy Verified 12/04/23 14:54 Home Medications Medication Instructions Recorded Confirmed Type cholecalciferol (vitamin D3) 25 25 mcg PO DAILY 05/09/23 12/04/23 History mcg (1,000 unit) tablet ergocalciferol (vitamin D2) 1,250 50,000 unit PO WK 05/09/23 12/04/23 History mcg (50,000 unit) capsule (Drisdol) sulfamethoxazole 800 1 tab PO DAILY 05/09/23 12/04/23 History mg-trimethoprim 160 mg tablet (Bactrim DS) folic acid 1 mg tablet 1 mg PO DAILY #30 tabs 05/30/23 12/04/23 Rx umeclidinium 62.5 mcg/actuation 1 inh inhalation DAILY #1 inhaler 05/30/23 12/04/23 Rx blister powder for inhalation (Incruse Ellipta) bictegravir 30 mg-emtricitabine 1 tab PO DAILY 07/18/23 12/04/23 History 120 mg-tenofovir alafenam 15 mg tablet (Biktarvy) guaifenesin 100 mg/5 mL oral liquid 200 mg PO Q4H PRN Cough 07/18/23 12/04/23 History azithromycin 500 mg tablet 500 mg PO DAILY 11/06/23 12/04/23 History brimonidine 0.15 % eye drops 1 drp OPL BID 11/06/23 12/04/23 History cholestyramine (with sugar) 4 gram 4 g PO BID 11/06/23 12/04/23 History powder for susp in a packet (Questran) cyanocobalamin (vitamin B-12) 1,000 mcg IM .Q2WKS 11/06/23 12/04/23 History 1,000 mcg/mL injection solution dicyclomine 10 mg capsule 10 mg PO BID PRN ABD PAIN NEEDED 11/06/23 12/04/23 History difluprednate 0.05 % eye drops 1 drp OPB DIRECTED 11/06/23 12/04/23 History (Durezol) ethambutol 100 mg tablet 50 mg (1/2 x 100 mg) PO DAILY 30 11/10/23 12/04/23 Rx days #15 tabs ethambutol 400 mg tablet 800 mg (2 x 400 mg) PO DAILY 30 11/10/23 12/04/23 Rx (Myambutol) days #60 tabs Patient History Medical History Hyperlipemia Vision loss of left eye LVH (left ventricular hypertrophy) Abnormal CT scan, chest Iron deficiency anemia Vitamin D deficiency HIV (human immunodeficiency virus infection) Social History Smoking Status: Never smoker Second Hand Exposure: No; Do You Dip or Chew Tobacco: No; Hx Alcohol Use: No Hx Substance Use: No Preferred Language: Mongolian Communication Ability: Effective Filling Carrier Required: No Beliefs That Will Affect Care: None Current Living Situation: Legal Guardian Current Living Situation Comment: [facility], [facility] Other Information That Helps Us Care for You: No Feels Safe at Home: Yes Safety Concerns: Feels Safe At This Time Assistive Devices: None Review of System 10-point review of systems reviewed and are negative except for as above. Physical Exam Physical Exam: General: Awake, alert, no acute distress HEENT: NC/AT, EOMI, mmm Neck: supple, no LAD Lungs: respirations non-labored Heart: nl peripheral perfusion Abdomen: soft, mild tenderness Back: tender over entire lower back Ext: no LE edema Skin: no rash Neuro: O x 3 Results & Data Vital Signs (Past 12 Hours) Vital Signs Temp Pulse Pulse Resp BP BP Pulse Ox 12/05/23 07:51 48 L 12/05/23 07:50 36.4 C L 54 L 16 136/80 100 12/05/23 03:10 36.3 C L 49 L 21 94/60 L 98 12/05/23 02:19 50 L 12/05/23 02:18 53 L 12/04/23 23:17 36.4 C L 78 19 94/59 L 97 12/04/23 22:10 36.6 C 58 L 16 103/65 100 12/04/23 21:45 50 L 16 103/65 98 12/04/23 21:44 36.4 C L 50 L 16 92/59 L 99 12/04/23 21:33 36.4 C L 54 L 16 100/66 99 O2 Del Method 12/05/23 07:51 12/05/23 07:50 Room Air 12/05/23 03:10 Room Air 12/05/23 02:19 12/05/23 02:18 12/04/23 23:17 Room Air 12/04/23 22:10 12/04/23 21:45 12/04/23 21:44 12/04/23 21:33 Laboratory Results Labs reviewed. Diagnostic Findings Imaging reviewed.
--- NOTE | 2023-12-05 12:59 | Hospitalist Progress Note ---
Date of Service December 05, 2023 Assessment & Plan (1) Sepsis: Plan: Suspect due to viral etiology with both rhino/entero and para flu positive -Although MRSA Nares is positive, chest x ray did not show any evidence of consolidation -Blood cultures have been obtained Continue broad antibiotic coverage with vancomycin, Zosyn, azithromycin, ethambutol. -Appreciate ID recs (2) HIV (human immunodeficiency virus infection): Plan: HIV/AIDS -History of HIV on Biktarvy. Last CD4 count11/07/2023 was 71. HIV quant at the time was not detected., Last detectable 05/13/2023 Patient reports he has not been taking MAC treatment because he has to walk up and down the [facility] to get his Ethambutol, and with his muscle wasting and deconditioning, it has been very difficult for him -But he does take his Biktarvy/Bactrim regularly Bactrim, Biktarvy CD4/CD8, HIV quant sent ID consulted (3) Anemia: Plan: Chronic anemia Hemoglobin 7.0, received 1 unit of blood - MCV low?thalassemia Patient is pending bone marrow by biopsy for? Aplastic anemia as outpatient. Discussed w/ hemeonc, consistent with AOCD. Transfuse as needed, no iron indicated. Transfuse as needed for symptomatic anemia or hemoglobin less than 7. Agree w/ marrow bx as outpatient. No chest pain/syncope/presyncope Patient does have a antibody screen positive and undetectable transferrin receptor. Direct Melanie is pending; lower suspicion for hemolysis given normal bilirubin (4) Mycobacterium avium complex: Plan: History of disseminated MAC hx MAC on rifampin/azithromycin. Culture 05/15/2023: Moxifloxacin resistant EMILIANO greater than 4, clarithromycin sensitive EMILIANO of 4, amikacin intermediate resistance EMILIANO 32, linezolid resistant EMILIANO greater than 32 Patient has not been taking his ethambutol or azithromycin regularly due to the reason mentioned above (5) Emphysema lung: Plan: - Seen on CT - Continue incruse - No wheezing on admitting exam (6) Cachexia associated with AIDS: Plan: Continue supplements with Ensure or boost TID Plan DVT prophylaxis: Fungal prophylaxis contraindicated in the setting of anemia requiring transfusion Disposition: PCU CODE STATUS: Full code Diet: Regular, boost Admission and Anticipated Discharge Date Admission Date: December 04, 2023 Subjective Patient seen and examined, still complains of generalized body aches and pains especially abdomen and inner thighs Review of Systems Review of Systems: All systems reviewed are negative, apart from the ones contained in the history. Physical Exam Physical Exam: The patient is awake, alert and oriented 3, chronically ill looking, emaciated HEENT--PERRL, EOMI, mucous membranes and oropharynx mildly dry Neck--supple. No JVD. No bruits. Thyroid normal, trachea midline, Heart--normal S1 and S2. No murmurs, rubs or gallops. Lungs--clear bilaterally, no respiratory distress, no accessory muscle use. Abdomen--normal bowel sounds and soft. Extremities--no cyanosis or clubbing. No edema. Dermatologic--normal skin turgor, normal color, no abnormal lymph nodes, no rash. Neurologic--cranial nerves II through XII grossly intact. Rheumatologic--normal range of motion. Psychiatric--normal affect. Results & Data Results & Data Vital Signs (Past 12 Hours) Vital Signs Temp Pulse Pulse Resp BP Pulse Ox O2 Del Method 12/05/23 11:19 97.3 F L 52 L 18 106/70 99 Room Air 12/05/23 08:00 Room Air 12/05/23 07:51 48 L 12/05/23 07:50 97.5 F L 54 L 16 136/80 100 Room Air 12/05/23 03:10 97.3 F L 49 L 21 94/60 L 98 Room Air 12/05/23 02:19 50 L 12/05/23 02:18 53 L PG Care Time/CCT Total # of Minutes Spent Total Time Spent with Patient: Total time spent is greater than 50% in coordination of care (as documented) at patient's floor/unit and/or counseling patient: Coding Level of Care Code 58033 SUB INP/OBS CARE 2/35MIN Diagnoses Sepsis A41.9 HIV (human immunodeficiency virus infection) B20 Anemia D64.9 Anemia type: unspecified type Mycobacterium avium complex A31.0 Emphysema lung J43.9 Cachexia associated with AIDS B20; E88.A Time Spent (min) 35 (3) Anemia Anemia type: unspecified type Qualified Code(s): D64.9 - Anemia, unspecified
[2023-12-06 09:01] LABS: Hematocrit (blood only) 33.9 % (42.0-52.0); Mean Corpuscular Hemoglobin 23.6 pg (25.0-34.0); Mean Corpuscular Hgb Conc 32.4 g/dL (32.0-36.0); Mean Corpuscular Volume 72.6 fL (80.0-100.0); Mean Platelet Volume 9.5 fL (9.4-12.4); Platelet Count 154 K/uL (130-400); RDW Coefficient of Variation 23.3 % (11.5-14.5); RDW Standard Deviation 59.7 fL (36.4-46.3); Red Blood Count 4.67 M/uL (4.70-6.10); White Blood Count 7.47 K/ul (4.8-10.8)
[2023-12-06 09:11] LABS: Anisocytosis Present; Basophils # (auto) 0.03 K/uL (0.00-0.20); Basophils % (auto) 0.4 %; Echinocytes 1+; Immature Granulocytes # (auto) 0.12 K/uL (0.01-0.20); Immature Granulocytes % (auto) 1.6 %; Lymphocytes # (auto) 0.61 K/uL (1.20-3.40); Lymphocytes % (auto) 8.2 %; Monocytes # (auto) 0.21 K/uL (0.11-0.59); Monocytes % (auto) 2.8 %; Polychromasia 1+
[2023-12-06] MEDS: VANCOMYCIN LEVEL ONE (09:30)
[2023-12-06 09:54] LABS: Calcium 8.1 mg/dl (8.6-10.3); Potassium 3.4 mmol/L (3.5-5.1)
[2023-12-06 09:59] LABS: BUN Creatinine Ratio 14.9 (10-20); Creatinine Clr Calc Pharmacy 87.2 ml/min; Est GFR (African American) 116.3 ml/min; Est GFR (Non-African American) 100.3 ml/min
--- NOTE | 2023-12-06 12:46 | Hospitalist Progress Note ---
Date of Service December 06, 2023 Assessment & Plan (1) Sepsis: Plan: Suspect due to viral etiology with both rhino/entero and para flu positive -Although MRSA Nares is positive, chest x ray did not show any evidence of consolidation -Blood cultures have been obtained, negative so far Continue broad antibiotic coverage with vancomycin, Zosyn, azithromycin, ethambutol. -Appreciate ID recs -Will discontinue abx tomorrow if cultures remain negative (2) HIV (human immunodeficiency virus infection): Plan: HIV/AIDS -History of HIV on Biktarvy. Last CD4 count11/07/2023 was 71. HIV quant at the time was not detected., Last detectable 05/13/2023 Patient reports he has not been taking MAC treatment because he has to walk up and down the [facility] to get his Ethambutol, and with his muscle wasting and deconditioning, it has been very difficult for him -But he does take his Biktarvy/Bactrim regularly Bactrim, Biktarvy CD4/CD8, HIV quant sent ID consulted (3) Anemia: Plan: Chronic anemia Hemoglobin 7.0, received 1 unit of blood - MCV low?thalassemia Patient is pending bone marrow by biopsy for? Aplastic anemia as outpatient. Discussed w/ hemeonc, consistent with AOCD. Transfuse as needed, no iron indicated. Transfuse as needed for symptomatic anemia or hemoglobin less than 7. Agree w/ marrow bx as outpatient. No chest pain/syncope/presyncope Patient does have a antibody screen positive and undetectable transferrin receptor. Direct Melanie is pending; lower suspicion for hemolysis given normal bilirubin (4) Mycobacterium avium complex: Plan: History of disseminated MAC hx MAC on rifampin/azithromycin. Culture 05/15/2023: Moxifloxacin resistant EMILIANO greater than 4, clarithromycin sensitive EMILIANO of 4, amikacin intermediate resistance EMILIANO 32, linezolid resistant EMILIANO greater than 32 Patient has not been taking his ethambutol or azithromycin regularly due to the reason mentioned above (5) Emphysema lung: Plan: - Seen on CT - Continue incruse - No wheezing on admitting exam (6) Cachexia associated with AIDS: Plan: Continue supplements with Ensure or boost TID (7) Irritable bowel syndrome: Plan: Patient said he has had about 6 episodes of watery stool this morning. Will check stool BioFire and stool for C. difficile Plan DVT prophylaxis: Fungal prophylaxis contraindicated in the setting of anemia requiring transfusion Disposition: PCU CODE STATUS: Full code Diet: Regular, boost Admission and Anticipated Discharge Date Admission Date: December 04, 2023 Subjective Patient seen and examined, still complains of generalized body aches and pains especially abdomen and inner thighs and also 4 episodes of diarrhea this morning Review of Systems Review of Systems: All systems reviewed are negative, apart from the ones contained in the history. Physical Exam Physical Exam: The patient is awake, alert and oriented 3, chronically ill looking, emaciated HEENT--PERRL, EOMI, mucous membranes and oropharynx mildly dry Neck--supple. No JVD. No bruits. Thyroid normal, trachea midline, Heart--normal S1 and S2. No murmurs, rubs or gallops. Lungs--clear bilaterally, no respiratory distress, no accessory muscle use. Abdomen--normal bowel sounds and soft. Extremities--no cyanosis or clubbing. No edema. Dermatologic--normal skin turgor, normal color, no abnormal lymph nodes, no rash. Neurologic--cranial nerves II through XII grossly intact. Rheumatologic--normal range of motion. Psychiatric--normal affect. Results & Data Results & Data Vital Signs (Past 12 Hours) Vital Signs Temp Pulse Pulse Resp BP Pulse Ox O2 Del Method 12/06/23 11:14 97.5 F L 55 L 16 136/77 98 Room Air 12/06/23 08:33 97.5 F L 53 L 16 154/87 H 100 Room Air 12/06/23 07:00 55 L 12/06/23 04:04 98.1 F 58 L 14 151/82 H 97 Room Air PG Care Time/CCT Total # of Minutes Spent Total Time Spent with Patient: Total time spent is greater than 50% in coordination of care (as documented) at patient's floor/unit and/or counseling patient: Coding Level of Care Code 35942 SUB INP/OBS CARE 2/35MIN Diagnoses Sepsis A41.9 HIV (human immunodeficiency virus infection) B20 Anemia D64.9 Anemia type: unspecified type Mycobacterium avium complex A31.0 Emphysema lung J43.9 Cachexia associated with AIDS B20; E88.A Irritable bowel syndrome K58.9 Time Spent (min) 35 (3) Anemia Anemia type: unspecified type Qualified Code(s): D64.9 - Anemia, unspecified
--- NOTE | 2023-12-06 14:01 | Infectious Disease Progress Nt ---
Date of Service December 06, 2023 Assessment & Plan (1) Enterovirus infection: (2) Infection due to parainfluenza virus 3: (3) Mycobacterium avium complex: (4) Hypotension: (5) Emphysema lung: Plan 43yo incarcerated M with h/o HIV (CD4 71, VL UD in in 10/2023, on Biktarvy and Bactrim ppx), vitamin D deficiency, anemia (awaiting outpatient BM Bx), PJP pneumonia (2019), prior diagnosis of MAC PNA and dissemination 2021, CMV infection, admission 05/09-05/30/23 with cough x 1mo f/w disseminated MAC, currently tx with azithromycin and ethambutol, recent admission 11/05-11/09 with enteritis who presented 12/03 with fever, hypotension and fatigue. He reportedly has been noncompliant with his MAC therapy for <2wks due to too much pain and fatigue to go obtain his meds. He reported ongoing back, hip, abdominal, and thigh pain. Here, he was afebrile. BPs ranging from 60-80s and now 90s. Sats well on RA. WBC 7.14, Cr 1.10, LFT wnl. Lactate wnl. PCT 1.87. UA negative. RPP positive for Parainfluenza 3 and entero/rhinovirus. CXR with new small focal density in the LLL which may represent PNA. CTAP with moderate wall edema and mild ascites. Chest CT with no acute abnormalities, redemonstration of emphysema, bronchiectasis, and scarring. He was started on empiric zosyn, vanc was also added. ID consulted for assistance. Chest imaging doesnt suggest consolidation. Blood cx have remained negative. I will therefore stop further antibiotics and continue supportive therapy for v iral illness. I had discussed with patient regarding compliance with MAC therapy, which he seems to understand. Unclear if this will be possible since he seems to have issues going up to the [facility] to get his medications. His last viral load was undetectable. Despite low CD4 count, an undetectable VL suggests proper ART therapy and compliance. Therefore continuing on biktarvy and Bactrim ppx. # Parainfluenza and Entero/rhinovirus infection # HIV/AIDS on biktarvy # Disseminated MAC on tx, noncompliance # h/o PJP PNA - I will stop vancomycin and zosyn - supportive care for viral illness - f/u HIV VL and CD4 count - continue biktarvy - continue azithromycin and ethambutol - continue bactrim ppx ID will discontinue active follow up at this time. Please do not hesitate to reconsult the Infectious Diseases service as needed. Jessica Thompson MD [facility], Division of Infectious Diseases IDConnect: [phone] Admission and Anticipated Discharge Date Admission Date: December 04, 2023 Subjective This patient recommendation is based on a telemedicine consult request which was completed asynchronously through chart review and information provided by the primary physician. The patient was not seen or examined today. The evaluation is consultative in nature and all patient care and treatment decisions can either be accepted or rejected by the patient's primary hospital-based treating physician using their own independent medical judgment for their patient. Time Spent Reviewing Chart: 31+ minutes Results & Data Vital Signs (Past 12 Hours) Vital Signs Temp Pulse Pulse Resp BP Pulse Ox O2 Del Method 12/06/23 11:14 36.4 C L 55 L 16 136/77 98 Room Air 12/06/23 08:33 36.4 C L 53 L 16 154/87 H 100 Room Air 12/06/23 07:00 55 L 12/06/23 04:04 36.7 C 58 L 14 151/82 H 97 Room Air
[2023-12-07 01:14] LABS: Adenovirus F 40/41 PCR Not Detected (NotDetected); Astrovirus PCR Not Detected (NotDetected); Campylobacter PCR Not Detected (NotDetected); Cryptosporidium PCR Not Detected (NotDetected); Cyclospora cayetanensis PCR Not Detected (NotDetected); Entamoeba histolytica PCR Not Detected (NotDetected); Enteroaggregative E.coli(EAEC) Not Detected (NotDetected); Enteropathogenic E.coli (EPEC) Not Detected (NotDetected); Enterotoxigenic E.coli (ETEC) Not Detected (NotDetected); Giardia lamblia PCR Not Detected (NotDetected); Norovirus GI/GII PCR Not Detected (NotDetected); Plesiomonas shigelloides PCR Not Detected (NotDetected); Rotavirus A PCR Not Detected (NotDetected); Salmonella PCR Not Detected (NotDetected); Sapovirus PCR Not Detected (NotDetected); Shiga-like Toxin E.coli (STEC) Not Detected (NotDetected); Shigella/Enteroinvasive E.coli Not Detected (NotDetected); Vibrio cholerae PCR Not Detected (NotDetected); Vibrio species PCR Not Detected (NotDetected); Yersinia enterocolitica PCR Not Detected (NotDetected)
[2023-12-07 07:23] LABS: Hemoglobin 11.2 g/dl (14.0-18.0); Mean Corpuscular Hemoglobin 23.4 pg (25.0-34.0); Mean Corpuscular Volume 73.2 fL (80.0-100.0); Platelet Count 141 K/uL (130-400); RDW Coefficient of Variation 23.7 % (11.5-14.5); RDW Standard Deviation 60.7 fL (36.4-46.3); Red Blood Count 4.78 M/uL (4.70-6.10); White Blood Count 7.18 K/ul (4.8-10.8)
[2023-12-07 07:40] LABS: Anion Gap 5 (3-11); BUN Creatinine Ratio 19.8 (10-20); Blood Urea Nitrogen 16 mg/dl (6-23); Calcium 7.8 mg/dl (8.6-10.3); Carbon Dioxide 24 mmol/L (21-32); Chloride 108 mmol/L (98-107); Creatinine Clr Calc Pharmacy 101.5 ml/min; Est GFR (African American) 127.9 ml/min; Est GFR (Non-African American) 110.4 ml/min; Glucose 98 mg/dl (70-99(Fasting)); Sodium 137 mmol/L (136-145)
[2023-12-07 08:08] LABS: Anisocytosis Present; Basophils # (auto) 0.01 K/uL (0.00-0.20); Basophils % (auto) 0.1 %; Immature Granulocytes # (auto) 0.11 K/uL (0.01-0.20); Immature Granulocytes % (auto) 1.5 %; Lymphocytes # (auto) 0.73 K/uL (1.20-3.40); Lymphocytes % (auto) 10.2 %; Monocytes # (auto) 0.43 K/uL (0.11-0.59); Neutrophils % (auto) 82.2 %
--- NOTE | 2023-12-07 10:01 | Hospitalist Progress Note ---
Date of Service December 07, 2023 Assessment & Plan (1) Sepsis: Plan: Suspect due to viral etiology with both rhino/entero and para flu positive -Although MRSA Nares is positive, chest x ray did not show any evidence of consolidation -Blood cultures have been obtained, negative so far -Initially on Zosyn and Vanc, which have been discontinued Continue home azithromycin, ethambutol. -Appreciate ID recs (2) Anaplasmosis: Plan: I got a message from the lab saying that they saw a single inclusion in a neutrophil, suspicious for Anaplasmosis Patient has been incarcerated and likely did not get exposed to tick bites, however discussed with ID and we agreed it was reasonable to treat for now until the PCR result Will initiate PO Doxycycline 100mg BID (3) HIV (human immunodeficiency virus infection): Plan: HIV/AIDS -History of HIV on Biktarvy. Last CD4 count11/07/2023 was 71. HIV quant at the time was not detected., Last detectable 05/13/2023 Patient reports he has not been taking MAC treatment because he has to walk up and down the [facility] to get his Ethambutol, and with his muscle wasting and deconditioning, it has been very difficult for him -But he does take his Biktarvy/Bactrim regularly Bactrim, Biktarvy CD4/CD8, HIV quant sent ID consulted (4) Anemia: Plan: Chronic anemia Hemoglobin 7.0, received 1 unit of blood - MCV low?thalassemia Patient is pending bone marrow by biopsy for? Aplastic anemia as outpatient. Discussed w/ hemeonc, consistent with AOCD. Transfuse as needed, no iron indicated. Transfuse as needed for symptomatic anemia or hemoglobin less than 7. Agree w/ marrow bx as outpatient. No chest pain/syncope/presyncope Patient does have a antibody screen positive and undetectable transferrin receptor. 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 Culture 05/15/2023: Moxifloxacin resistant EMILIANO greater than 4, clarithromycin sensitive EMILIANO of 4, amikacin intermediate resistance EMILIANO 32, linezolid resistant EMILIANO greater than 32 Patient has not been taking his ethambutol or azithromycin regularly due to the reason mentioned above (6) Emphysema lung: Plan: - Seen on CT - Continue incruse - No wheezing on admitting exam (7) Cachexia associated with AIDS: Plan: Continue supplements with Ensure or boost TID (8) Irritable bowel syndrome: Plan: Patient said he has had about 6 episodes of watery stool this morning, i think it was from the antibiotics, which have been stopped stool biofire and C diff were negative Plan DVT prophylaxis: Fungal prophylaxis contraindicated in the setting of anemia requiring transfusion Disposition: Hopefully discharge soon, patient still having several episodes of diarrhea CODE STATUS: Full code Diet: Regular, boost Admission and Anticipated Discharge Date Admission Date: December 04, 2023 Subjective Patient seen and examined, still complains of generalized body aches and pains especially abdomen and inner thighs and also 3 episodes of diarrhea this morning Review of Systems Review of Systems: All systems reviewed are negative, apart from the ones contained in the history. Physical Exam Physical Exam: The patient is awake, alert and oriented 3, chronically ill looking, emaciated HEENT--PERRL, EOMI, mucous membranes and oropharynx mildly dry Neck--supple. No JVD. No bruits. Thyroid normal, trachea midline, Heart--normal S1 and S2. No murmurs, rubs or gallops. Lungs--clear bilaterally, no respiratory distress, no accessory muscle use. Abdomen--normal bowel sounds and soft. Extremities--no cyanosis or clubbing. No edema. Dermatologic--normal skin turgor, normal color, no abnormal lymph nodes, no rash. Neurologic--cranial nerves II through XII grossly intact. Rheumatologic--normal range of motion. Psychiatric--normal affect. Results & Data Results & Data Vital Signs (Past 12 Hours) Vital Signs Temp Pulse Pulse Resp BP BP Pulse Ox 12/07/23 07:55 97.5 F L 54 L 16 164/83 H 99 12/07/23 07:27 53 L 12/07/23 02:49 98.1 F 54 L 18 161/87 H 97 12/06/23 22:53 97.7 F 41 L 18 139/79 95 12/06/23 22:47 54 L O2 Del Method 12/07/23 07:55 Room Air 12/07/23 07:27 12/07/23 02:49 Room Air 12/06/23 22:53 Room Air 12/06/23 22:47 PG Care Time/CCT Total # of Minutes Spent Total Time Spent with Patient: Total time spent is greater than 50% in coordination of care (as documented) at patient's floor/unit and/or counseling patient: Coding Level of Care Code 42385 SUB INP/OBS CARE 2/35MIN Diagnoses Sepsis A41.9 Anaplasmosis A77.49 HIV (human immunodeficiency virus infection) B20 Anemia D64.9 Anemia type: unspecified type Mycobacterium avium complex A31.0 Emphysema lung J43.9 Cachexia associated with AIDS B20; E88.A Irritable bowel syndrome K58.9 Time Spent (min) 35 (4) Anemia Anemia type: unspecified type Qualified Code(s): D64.9 - Anemia, unspecified
[2023-12-07] MEDS: HYDROCORTISONE ACETATE 25 MG SUPP PR ONE (10:17)
[2023-12-07] MEDS: DOXYCYCLINE HYCLATE 100 MG CAP PO STA (11:25)
[2023-12-07] MEDS: NYSTATIN SUSP 500,000 U/5 ML UDC PO SCH (14:20)
[2023-12-07] MEDS: FLUCONAZOLE 100 MG TAB PO SCH (17:37)
--- NOTE | 2023-12-08 15:20 | Hospitalist Progress Note ---
Date of Service December 08, 2023 Assessment & Plan (1) Sepsis: Plan: Suspect due to viral etiology with both rhino/entero and para flu positive -Although MRSA Nares is positive, chest x ray did not show any evidence of consolidation -Blood cultures have been obtained, negative so far -Initially on Zosyn and Vanc, which have been discontinued Continue home azithromycin, ethambutol. -Appreciate ID recs Currently on doxycycline due to suspicion for anaplasmosis (2) Anaplasmosis: Plan: A message was received from the lab saying that they saw a single inclusion in a neutrophil, suspicious for Anaplasmosis Patient has been incarcerated and likely did not get exposed to tick bites, however discussed with ID and we agreed it was reasonable to treat for now until the PCR result Continue PO Doxycycline 100mg BID started 12/06 (3) HIV (human immunodeficiency virus infection): Plan: HIV/AIDS -History of HIV on Biktarvy. Last CD4 count11/07/2023 was 71. HIV quant at the time was not detected., Last detectable 05/13/2023 Patient reports he has not been taking MAC treatment because he has to walk up and down the [facility] to get his Ethambutol, and with his muscle wasting and deconditioning, it has been very difficult for him -But he does take his Biktarvy/Bactrim regularly Bactrim, Biktarvy CD4/CD8, HIV quant sent ID consulted (4) Anemia: Plan: Chronic anemia Hemoglobin 7.0, received 1 unit of blood - MCV low?thalassemia Patient is pending bone marrow by biopsy for? Aplastic anemia as outpatient. Discussed w/ hemeonc, consistent with AOCD. Transfuse as needed, no iron indicated. Transfuse as needed for symptomatic anemia or hemoglobin less than 7. Agree w/ marrow bx as outpatient. No chest pain/syncope/presyncope Patient does have a antibody screen positive and undetectable transferrin receptor. 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 Culture 05/15/2023: Moxifloxacin resistant EMILIANO greater than 4, clarithromycin sensitive EMILIANO of 4, amikacin intermediate resistance EMILIANO 32, linezolid resistant EMILIANO greater than 32 Patient has not been taking his ethambutol or azithromycin regularly due to the reason mentioned above (6) Emphysema lung: Plan: - Seen on CT - Continue incruse - No wheezing on admitting exam (7) Cachexia associated with AIDS: Plan: Continue supplements with Ensure or boost TID (8) Irritable bowel syndrome: Plan: Patient said he has had about 6 episodes of watery stool this morning, i think it was from the antibiotics, which have been stopped stool biofire and C diff were negative Plan DVT prophylaxis: Fungal prophylaxis contraindicated in the setting of anemia requiring transfusion Disposition: Hopefully discharge soon, patient still having several episodes of diarrhea CODE STATUS: Full code Diet: Regular, boost Admission and Anticipated Discharge Date Admission Date: December 04, 2023 Subjective Patient feels well. Denies chest pain or shortness of breath. Review of Systems Review of Systems: All systems reviewed & are unremarkable except as noted in Subjective Physical Exam Physical Exam: General: Awake, conversant Heart: S1, S2/regular rate and rhythm, no murmur rubs or gallops Lungs: Clear to auscultation bilaterally. Normal effort Abdomen: Soft/nontender/nondistended. No hepatosplenomegaly Extremities: No clubbing/cyanosis. No edema Behavior: Appropriate, cooperative Results & Data Results & Data Vital Signs (Past 12 Hours) Vital Signs Temp Pulse Resp BP Pulse Ox O2 Del Method 12/08/23 11:24 36.6 C 58 L 18 129/78 98 Room Air 12/08/23 07:31 36.6 C 56 L 20 148/84 H 95 Room Air PG Care Time/CCT Total # of Minutes Spent Total Time Spent with Patient: Total time spent is greater than 50% in coordination of care (as documented) at patient's floor/unit and/or counseling patient: Coding Level of Care Code 25598 SUB INP/OBS CARE 2/35MIN Diagnoses Sepsis A41.9 Anaplasmosis A77.49 HIV (human immunodeficiency virus infection) B20 Anemia D64.9 Anemia type: unspecified type Mycobacterium avium complex A31.0 Emphysema lung J43.9 Cachexia associated with AIDS B20; E88.A Irritable bowel syndrome K58.9 (4) Anemia Anemia type: unspecified type Qualified Code(s): D64.9 - Anemia, unspecified
[2023-12-08] MEDS: DOXYCYCLINE HYCLATE 100 MG CAP PO SCH (20:18)
[2023-12-09 08:03] VITALS: PULSE 78; RESP 20; TEMP 97.7; O2SAT 99
--- NOTE | 2023-12-09 10:02 | Hospitalist Progress Note ---
Date of Service December 09, 2023 Assessment & Plan (1) Sepsis: Plan: Suspect due to viral etiology with both rhino/entero and para flu positive -Although MRSA Nares is positive, chest x ray did not show any evidence of consolidation -Blood cultures have been obtained, negative so far -Initially on Zosyn and Vanc, which have been discontinued Continue home azithromycin, ethambutol. -Appreciate ID recs Currently on doxycycline due to suspicion for anaplasmosis (2) Anaplasmosis: Plan: A message was received from the lab saying that they saw a single inclusion in a neutrophil, suspicious for Anaplasmosis Patient has been incarcerated and likely did not get exposed to tick bites, however discussed with ID and we agreed it was reasonable to treat for now until the PCR result Continue PO Doxycycline 100mg BID started 12/06 (3) HIV (human immunodeficiency virus infection): Plan: HIV/AIDS -History of HIV on Biktarvy. Last CD4 count11/07/2023 was 71. HIV quant at the time was not detected., Last detectable 05/13/2023 Patient reports he has not been taking MAC treatment because he has to walk up and down the [facility] to get his Ethambutol, and with his muscle wasting and deconditioning, it has been very difficult for him -But he does take his Biktarvy/Bactrim regularly Bactrim, Biktarvy CD4/CD8, HIV quant sent ID consulted (4) Anemia: Plan: Chronic anemia Hemoglobin 7.0, received 1 unit of blood - MCV low?thalassemia Patient is pending bone marrow by biopsy for? Aplastic anemia as outpatient. Discussed w/ hemeonc, consistent with AOCD. Transfuse as needed, no iron indicated. Transfuse as needed for symptomatic anemia or hemoglobin less than 7. Agree w/ marrow bx as outpatient. No chest pain/syncope/presyncope Patient does have a antibody screen positive and undetectable transferrin receptor. 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 Culture 05/15/2023: Moxifloxacin resistant EMILIANO greater than 4, clarithromycin sensitive EMILIANO of 4, amikacin intermediate resistance EMILIANO 32, linezolid resistant EMILIANO greater than 32 Patient has not been taking his ethambutol or azithromycin regularly due to the reason mentioned above (6) Emphysema lung: Plan: - Seen on CT - Continue incruse - No wheezing on admitting exam (7) Cachexia associated with AIDS: Plan: Continue supplements with Ensure or boost TID (8) Irritable bowel syndrome: Plan: Patient said he has had about 6 episodes of watery stool this morning, i think it was from the antibiotics, which have been stopped stool biofire and C diff were negative Plan DVT prophylaxis: Fungal prophylaxis contraindicated in the setting of anemia requiring transfusion Disposition: Hopefully discharge soon, patient still having several episodes of diarrhea CODE STATUS: Full code Diet: Regular, boost Admission and Anticipated Discharge Date Admission Date: December 04, 2023 Physical Exam Physical Exam: General: Awake, conversant Heart: S1, S2/regular rate and rhythm, no murmur rubs or gallops Lungs: Clear to auscultation bilaterally. Normal effort Abdomen: Soft/nontender/nondistended. No hepatosplenomegaly Extremities: No clubbing/cyanosis. No edema Behavior: Appropriate, cooperative Results & Data Results & Data Vital Signs (Past 12 Hours) Vital Signs Temp Pulse Pulse Resp BP BP Pulse Ox 12/09/23 08:03 36.5 C 78 20 102/70 99 12/09/23 07:21 58 L 12/09/23 03:54 37.2 C 60 16 113/68 97 12/08/23 22:30 36.9 C 66 16 124/80 98 12/08/23 22:02 56 L O2 Del Method 12/09/23 08:03 Room Air 12/09/23 07:21 12/09/23 03:54 Room Air 12/08/23 22:30 Room Air 12/08/23 22:02 PG Care Time/CCT Total # of Minutes Spent Total Time Spent with Patient: Total time spent is greater than 50% in coordination of care (as documented) at patient's floor/unit and/or counseling patient: Coding Diagnoses Sepsis A41.9 Anaplasmosis A77.49 HIV (human immunodeficiency virus infection) B20 Anemia D64.9 Anemia type: unspecified type Mycobacterium avium complex A31.0 Emphysema lung J43.9 Cachexia associated with AIDS B20; E88.A Irritable bowel syndrome K58.9 (4) Anemia Anemia type: unspecified type Qualified Code(s): D64.9 - Anemia, unspecified
[2023-12-09 10:47] VITALS: BP 113/68
[2023-12-09] MEDS ORDERED: DOXYCYCLINE HYCLATE 100 MG CAP PO SCH (11:45)
[2023-12-09] MEDS ORDERED: FLUCONAZOLE 100 MG TAB PO SCH ×2 (11:45)
--- NOTE | 2023-12-09 14:28 | Discharge Summary ---
Date of Service December 09, 2023 Admission HPI Per Admitting Provider Margarito is a 43-year-old male with past medical history of HIV and disseminated MAC with intermittent compliance with medications reportedly compliant with Biktarvy for the last year but with last CD4 count of 71 who presents by ambulance for fever, hypotension, and fatigue. Patient was recently admitted and discharged 11/09 for similar illness ultimately thought to be due to enteritis. As his CD4 count was less than 100 no intervention was recommended per GI. He did have an infectious disease consult at that time and was recommended to continue Ethambutol although dose adjusted to 1000 mg, and to continue azithromycin along with Bactrim PJP prophylaxis. During that admission CT showed enteritis, did not show adenopathy consistent with disseminated MAC however due to his history this was considered within the differential. Patient's baseline blood pressures range approximately [address] at baseline. On admission patient's blood pressures 80s systolic, received 1 L NSS, 1 L D5 NSS. Hemoglobin had decreased from 8.8 down to 7.0. Ordered 1 unit for transfusion for hypotension with progressive chronic microcytic anemia. Ferritin elevated, transferrin below the limit of detection. Random cortisol pending. Patient is parainfluenza and entero-/rhinovirus positive on admission. Lactate 0.9, normal. AB W sepsis recommendations 1900 cc. This has been completed with 20 to 73 cc by time of hospitalist consultation. Last echo 04/2023 with grade 1 diastolic dysfunction, EF 60-65% Pending 2 unit transfusion for rest of chronic anemia with hypotension, hemoglobin 7.0. Presnts with 1 day of fever, fatigue, hypotension, tachycardia. History HIV with low CD4 counts. Reports since last d/c has been noncompliant with ethambutol/azithromycin. or Biktarvy. In ER: Zosyn + IV azithro. Pending bactrim and ethambutol. ?Lingular density at CTA/RML. Pending bone marrow biopsy as outpatient for aplastic anemia. Admission Exam Per Admitting Provider General: Alert and oriented x 3. Cachectic HEENT: Atraumatic, normocephalic. Vision/hearing intact Pulm: CTAB A&P. -wheezes, -rales, -rhonchi. Symmetrical chest rise. No increased work of breathing. No respiratory distress. Cardiac: RRR, -mrg. Radial pulses intact and symmetrical. Abdominal: Mild tenderness overlying superficial musculature of left lower abdominal quadrant without rebound/guarding. No tenderness to deep palpation Extremities: Thin. 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 Normal effort Abdomen: Soft/nontender/nondistended. No hepatosplenomegaly Extremities: No clubbing/cyanosis. No edema Behavior: Appropriate, cooperative Discharge Data Allergies Allergy/AdvReac Type Severity Reaction Status Date / Time No Known Allergies Allergy Verified 12/04/23 14:54 Consultations 12/04/23 13:50 ED Decision to Admit Stat 12/04/23 14:56 Consult Infectious Diseases Stat Ordered Studies 12/04/23 10:26 CT abd pelvis IV con only Stat CT angio chest PE protocol Stat Hospital Course (1) Sepsis: Suspect due to viral etiology with both rhino/entero and para flu positive -Although MRSA Nares is positive, chest x ray did not show any evidence of consolidation -Blood cultures have been obtained, negative so far -Initially on Zosyn and Vanc, which have been discontinued Continue home azithromycin, ethambutol. -Appreciate ID recs Currently on doxycycline due to suspicion for anaplasmosis (2) Anaplasmosis: A message was received from the lab on 12/06 saying that they saw a single inclusion in a neutrophil, suspicious for Anaplasmosis Patient has been incarcerated and likely did not get exposed to tick bites, however discussed with ID and we agreed it was reasonable to treat for now until the PCR result Continue PO Doxycycline 100mg BID started 12/06 Follow-up on Anaplasma PCR result (3) HIV (human immunodeficiency virus infection): HIV/AIDS -History of HIV on Biktarvy. Last CD4 count11/07/2023 was 71. HIV quant at the time was not detected., Last detectable 05/13/2023 Patient reports he has not been taking MAC treatment because [facility], and with his muscle wasting and deconditioning, it has been very difficult for him -But he does take his Biktarvy/Bactrim regularly Bactrim, Biktarvy CD4/CD8, HIV quant sent, pending. Will need to be followed up on (4) Anemia: Chronic anemia Hemoglobin 7.0, received 1 unit of blood - MCV low?thalassemia Patient is pending bone marrow by biopsy for? Aplastic anemia as outpatient. Discussed w/ hemeonc, consistent with AOCD. Transfuse as needed, no iron indicated. Transfuse as needed for symptomatic anemia or hemoglobin less than 7. Agree w/ marrow bx as outpatient. No chest pain/syncope/presyncope Patient does have a antibody screen positive and undetectable transferrin receptor. 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 Culture 05/15/2023: Moxifloxacin resistant EMILIANO greater than 4, clarithromycin sensitive EMILIANO of 4, amikacin intermediate resistance EMILIANO 32, linezolid resistant EMILIANO greater than 32 Patient has not been taking his ethambutol or azithromycin regularly due to the reason mentioned above (6) Emphysema lung: - Seen on CT - Continue incruse - No wheezing on admitting exam (7) Cachexia associated with AIDS: Continue supplements with Ensure or boost TID (8) Irritable bowel syndrome: Patient reported having loose stools during the hospital stay stool biofire and C diff were negative Plan Discharge back to group home. I spoke to the provider at the group home to give them an update. 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 Activity: Resume your previous activity Non-emergency contact: Primary Care Provider Call non-emergency contact if: you have any medication questions and your symptoms worsen Follow-up/Referrals: Tonya ORTIZ [Primary Care Provider] - Diet: Regular Addtl Attending Provider Instructions: Advised to follow-up with PCP in 1 week Pending Studies at Discharge: No Studies:: Anaplasma PCR, CD4 count, HIV viral load Stand-Alone Forms: [facility] Skilled Items Patient informed of condition?: Yes Discharge Level of Care: Other Communicable Disease: No Discharge Prognosis: Stable Lines: None Urinary Catheter: No Medications and DC Order Prescriptions: New fluconazole 100 mg tablet 100 mg PO DAILY 7 Days Qty: 7 0RF doxycycline hyclate 100 mg Capsule 100 mg PO BID 5 Days Qty: 10 0RF Continued guaifenesin 100 mg/5 mL liquid 200 mg PO Q4H PRN (Reason: Cough) Biktarvy 30-120-15 mg tablet 1 tab PO DAILY Rx Instructions: STRENGTH NOT LISTED ON MEDS LIST sulfamethoxazole-trimethoprim [Bactrim DS] 800-160 mg Tablet 1 tab PO DAILY ergocalciferol (vitamin D2) [Drisdol] 1,250 mcg (50,000 unit) Capsule 50,000 unit PO WK Rx Instructions: FRIDAYS cholecalciferol (vitamin D3) 25 mcg (1,000 unit) Tablet 25 mcg PO DAILY folic acid 1 mg Tablet 1 mg PO DAILY Qty: 30 0RF Incruse Ellipta 62.5 mcg/actuation Blister With Device 1 inh inhalation DAILY Qty: 1 0RF cyanocobalamin (vitamin B-12) 1,000 mcg/mL Solution 1,000 mcg IM .Q2WKS Rx Instructions: TUESDAYS brimonidine 0.15 % Drops 1 drp OPL BID difluprednate [Durezol] 0.05 % Drops 1 drp OPB DIRECTED Rx Instructions: LEFT EYE--BID, RIGHT EYE DIRECTED BY HEATING WORKER dicyclomine 10 mg capsule 10 mg PO BID PRN (Reason: ABD PAIN NEEDED) Rx Instructions: MUST OBSERVE PT TAKING THIS MED. azithromycin 500 mg Tablet 500 mg PO DAILY cholestyramine (with sugar) [Questran] 4 gram Powder In Packet 4 g PO BID Rx Instructions: administer w/meal; avoid other meds within 1hr before or 4-6hr after dose ethambutol [Myambutol] 400 mg Tablet 800 mg PO DAILY 30 Days Qty: 60 0RF Rx Instructions: TOTAL DOSE 850 MG--TAKES WITH 1/2 OF 100 MG TAB. ethambutol 100 mg Tablet 50 mg PO DAILY 30 Days Qty: 15 0RF Rx Instructions: TOTAL DOSE 850 MG--TAKES WITH 2-400 MG TABS. Discharge Orders: Discharge Order (Routine); Ordered 12/09/23 Ordered By: Timur Carter Admission Data Admit Date/Time: 12/04/23 15:24 Attending Provider: Timur Carter Admit Provider: Ortiz Ceballos Primary Care Provider: Tonya ORTIZ Other Providers: Ortiz Ceballos Other Interventions: Discharge Summary Assessment (RN) Last Done: 12/09/23 10:45 Coding Level of Care Code 92894 INP/OBS DISCH >30 MIN Diagnoses Sepsis A41.9 Anaplasmosis A77.49 HIV (human immunodeficiency virus infection) B20 Anemia D64.9 Anemia type: unspecified type Mycobacterium avium complex A31.0 Emphysema lung J43.9 Cachexia associated with AIDS B20; E88.A Irritable bowel syndrome K58.9
[2023-12-11 13:43] LABS: HIV 1 RNA PCR Copies/ML NOT DETECTED copies/mL (NOT DETECTED); HIV-1 RNA Log Copies/mL NOT DETECTED (NOT DETECTED); LSP % Cells Analyzed CD4 10 % (30-61); LSP % of Cells Analyzed CD8 44 % (12-42); LSP Absolute Count CD8 244 cells/uL (180-1170); LSP Absolute Ct CD4 53 cells/uL (490-1740); LSP CD4/CD8 Ratio 0.22 (0.86-5.00); LSP Lymphocytes Absolute 551 cells/uL (850-3900); Lymphocyte Subset Pan Comment DNR
[2023-12-18] MEDS ORDERED: CYANOCOBALAMIN 1000 MCG/ML VIAL IM SCH (09:00)
== END 2023-12-09 13:58 | DRG 974 ==
LOC: ED 09:28 → SUATTDRO 15:24 → 2S 15:24 → INTOOBSV 15:24 → 2S 18:50

== ENCOUNTER 2024-02-01 09:09 | Inpatient (IN) ==
--- NOTE | 2024-02-01 14:42 | History & Physical Report ---
Date of Service February 01, 2024 Assessment & Plan (1) Malignant ascites: Plan: Suspected malignancy - CTA/P reviewed: Severe extrinsic compression of main portal vein due to ill- defined 3.7 cm soft tissue mass, multifocal ill-defined retroperitoneal and mesenteric soft tissue with multifocal narrowing of mesenteric veins likely neoplastic. Could represent metastatic disease. Lymphoma is within the differential. Of mesenteric veins likely neoplastic. Could represent metastatic disease. Lymphoma is within the differential. Findings consistent with neoplastic process, atypical infectious process within differential but less likely. Creatinine 1.18 -Paracentesis pending. Cytology, gram stain, fluid analysis pending Oncology following, will need cytology prior to any additional recommendations - High risk for thrombosis development, continue lovenox SQ daily (2) HIV (human immunodeficiency virus infection): Plan: History of HIV History of HIV on Biktarvy. CD4 count 11/07/2023 was 71, followup 53. Pending records of bone marrow biopsy, per pt had diffuse infiltration of MAC into marrow. Pending records from [place]. Patient noncompliant with [facility] at the [facility], does take Biktarvy/Bactrim as directed Low CD4 count however undetectable viral load at last check indicative of proper ART compliance and was continued on Biktarvy/Bactrim after ID consultation 12/06/2023 Continue Biktarvy and ppx bactrim WBC 12.02, lymphocyte count 1.49. 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 Generally not compliant with ethambutol. Continue azithromycin 500 mg daily Continue Bactrim DS 1 tab daily Continue Ethambutol. Confirmed w/ SCI patient takes 850 mg by mouth daily (4) Anemia: Plan: History of anemia Hemoglobin on admission 9.7, MCV 80 low, iron infusions were not indicated - ?AOCD vs bone marrow failure due to MAC infiltration Patient w/o hx of bleeding, low suspicion for hemolysis on prior workup, was pending evaluation for aplastic anemia however overall disease was consistent with anemia of chronic disease. Ferritin was not low, iron infusions were not indicated - High risk of thrombosis. Lovenox as noted. (5) Hypotension: Plan: Continue midodrine 5 mg twice daily hold for SBP greater than 100 Plan dvt ppx: lovenox dispo: m/t code: full History of Present Illness Primary Care Provider: SCI Tonya Pimentel is a 43-year-old male inmate with a past medical history of HIV, disseminated MAC with intermittent medication compliance, recent hospital admission and discharged 11/2023 for sepsis ultimately suspected to be viral due to both rhino/enterovirus and parainfluenza but he was also treated for anaplasmosis due to a single inclusion in the neutrophil on peripheral smear review. Presents to the ER with large volume ascites, mesenteric lymphadenopathy, main portal vein compression due to 3.7cm mass, narrowing of mesenteric veins. Necrotic lymph nodes. Fat/fluid suspicious for chylous ascites/lymphatic ascites, carcinomatosis. Started noticing fluid in the abdomen which has progressively worsened over this year. Had a little bit with pain int he last few months, but seemed to be intermittent. However in the last month fluid has increased and is not going away. Also had RIGHT abdominal pain. Hurts to lay on the right side and has a sharp pain into the right side when he lays on it. No fever, no chills. Gets cold sometimes which he attributes to anemia. Did have a bone marrow biopsy in [place] which was done a few months ago, was told he had a lot of MAC in the bone but doesnt know further details. No dyspnea, no shortness of breath but fatigued easily. No cough. No leg swelling. Sometimes has ankle swelling intermittently but resolves with elating legs. Denies headache, vision change. FHx: No family history of cancer to his knowledge in his father. Stage 4 lung cancer in his mother. MGF with throat cancer. Mother and MGF both smokers. Still taking Biktavry/Bactrim Ethambutol, azithromycin, rifampin. Reports he has been compliant with meds as prescribed since last discharge Confirmed med list with [facility] Medical History: Reviewed Medications: Reviewed Surgical History: Reviewed Family history: Reviewed Allergies: Reviewed Social History: Reviewed Code Status: Full Allergies Allergy/AdvReac Type Severity Reaction Status Date / Time No Known Allergies Allergy Verified 02/01/24 15:28 Home Medications Medication Instructions Recorded Confirmed Type A&D Ointment 1 applic topical DAILY 02/01/24 02/01/24 History Biktarvy 1 tab PO DAILY 02/01/24 02/01/24 History Lactobacillus acidophilus 0 mg PO BID 02/01/24 02/01/24 History (Acidophilus capsule) Robitussin Max Stren 100/5ml 15 ml PO QID PRN .cough 02/01/24 02/01/24 History Vitamin E Lotion 1 applic topical TID 02/01/24 02/01/24 History acetaminophen 325 mg tablet 650 mg PO QID PRN Pain 02/01/24 02/01/24 History (Tylenol) azithromycin 500 mg tablet 500 mg PO DAILY 02/01/24 02/01/24 History brimonidine 0.15 % eye drops 1 drp OPL BID 02/01/24 02/01/24 History cholecalciferol (vitamin D3) 25 25 mcg PO DAILY 02/01/24 02/01/24 History mcg (1,000 unit) tablet (Vitamin D3) cholestyramine (with sugar) 4 gram 4 g PO BID 02/01/24 02/01/24 History powder for susp in a packet (Questran) cyanocobalamin (vitamin B-12) 1,000 mcg IM .[id number] 02/01/24 02/01/24 History 1,000 mcg/mL injection solution dicyclomine 10 mg capsule 10 mg PO BID PRN Pain 02/01/24 02/01/24 History difluprednate 0.05 % eye drops 1 drp OPL .[id number] 02/01/24 02/01/24 History difluprednate 0.05 % eye drops 1 drp OPR BID 02/01/24 02/01/24 History ergocalciferol (vitamin D2) 1,250 1,250 mcg PO .WEEKLY 02/01/24 02/01/24 History mcg (50,000 unit) capsule (Vitamin D2) ethambutol 100 mg tablet 50 mg PO DAILY 02/01/24 02/01/24 History ethambutol 400 mg tablet 800 mg PO DAILY 02/01/24 02/01/24 History levofloxacin 250 mg tablet 250 mg PO DAILY 02/01/24 02/01/24 History loperamide 2 mg tablet (Imodium 2 mg PO TID PRN Diarrhea 02/01/24 02/01/24 History A-D) midodrine 5 mg tablet 5 mg PO BID 02/01/24 02/01/24 History multivitamin 1 tab PO DAILY 02/01/24 02/01/24 History spironolactone 25 mg tablet 25 mg PO DIRECTED 02/01/24 02/01/24 History sulfamethoxazole 800 1 tab PO DAILY 02/01/24 02/01/24 History mg-trimethoprim 160 mg tablet (Bactrim DS) umeclidinium 62.5 mcg/actuation 1 inh inhalation DAILY 02/01/24 02/01/24 History blister powder for inhalation (Incruse Ellipta) Past Med/Surg History Problem List (Updated 02/01/24 @ 16:52 by Kumar Caldwell MD) Abdominal ascites (Acute) Malignant ascites Anaplasmosis Cachexia associated with AIDS Enterovirus infection (Acute) Infection due to parainfluenza virus 3 (Acute) Anemia (Acute) Hypotension (Acute) Emphysema lung Mycobacterium avium complex (Acute) Enteritis Abdominal pain (Acute) Anemia (Acute) Acute hyponatremia (Acute) Skin lesion of chest wall Dyspnea Irritable bowel syndrome Vision loss of left eye Abnormal computerized tomography of biliary tract LVH (left ventricular hypertrophy) Abnormal CT scan, chest Sepsis (Acute) Cough (Acute) Anemia (Acute) Hypotension (Acute) HIV (human immunodeficiency virus infection) (Acute) Medical History Diarrhea Hyperlipemia Iron deficiency anemia Vitamin D deficiency Social History Smoking Status: Never smoker Second Hand Exposure: No; Do You Dip or Chew Tobacco: No; Hx Alcohol Use: No Hx Substance Use: No Preferred Language: Mauritian Yard Coupler Required: No Beliefs That Will Affect Care: None Current Living Situation: Legal Guardian Current Living Situation Comment: [facility] Feels Safe at Home: Yes Assistive Devices: None Physical Exam Physical Exam: General: A&Ox3. NAD. Cooperative. Appears cachectic HEENT: Atraumatic, normocephalic. PERLAA Pulm: Diminished, bibasilar crackles, -rales, -rhonchi. Symmetrical chest rise. No increased work of breathing. No respiratory distress. Cardiac: RRR, -mrg. Radial pulses intact and symmetrical. Abdominal: Distended with fluid wave. Trace RUE TTP. No rebound. No guarding. Ext: warm, dry. Thin. No edema. PG Care Time/CCT Total # of Minutes Spent Total Time Spent with Patient: Total time spent is greater than 50% in coordination of care (as documented) at patient's floor/unit and/or counseling patient: Coding Level of Care Code 12480 INT INP/OBS CARE MIN Diagnoses Malignant ascites R18.0 HIV (human immunodeficiency virus infection) B20 Mycobacterium avium complex A31.0 Anemia D64.9 Hypotension I95.9
--- NOTE | 2024-02-01 15:07 | XRay Report ---
Margarito Hernandez CLINICAL HISTORY: Abdominal pain TECHNIQUE: Single frontal radiograph of the chest was obtained. Comparison: None available at the time of this dictation. FINDINGS: No lines and tubes are seen. The cardiomediastinal silhouette is normal. Lungs are underinflated but clear. No evidence of pleural effusion or pneumothorax. IMPRESSION: No acute chest disease. ACT 112: Negative or not required by law. Electronically signed by: Karl Gillespie M.D. 02/01/2024 11:24 AM
[2024-02-01] MEDS: OPTIRAY 320 100ml IV ONE (15:13)
--- NOTE | 2024-02-01 15:30 | CT Scan Report ---
Fluelling, Margarito CT OF THE ABDOMEN AND PELVIS WITH CONTRAST CLINICAL HISTORY: Abdominal pain, diarrhea and bloating. COMPARISON STUDY: CT of the abdomen and pelvis December 04, 2023. TECHNIQUE: Axial images of the abdomen and pelvis were obtained following intravenous injection of 93 cc of Optiray 320 IV. Sagittal and coronal reconstructions were viewed. Automated exposure control w as utilized for the study. A dose lowering technique was utilized adhering to the principles of JANIS Stephens. FINDINGS: Emphysema is noted within the lower lungs. Right middle lobe and lingular opacities were sh own on prior exams. There is a small left pleural effusion. Right pleural calcified densities are not ed. A 2.7 cm partially calcified pleural density within the right lower hemithorax on image 41 of 421 is new since prior exam. There are no hepatic lesions. There is mild intrahepatic biliary ductal dil atation. Mild splenomegaly is noted. The adrenal glands, kidneys and pancreas are normal. There is se tamiko narrowing of the portal vein, shown on image 123 of 421. Adjacent soft tissue measures 3.7 cm. T here is also ill-defined mesenteric and retroperitoneal soft tissue suspicious for tumor. Tubular melany earing low density foci within the mesentery could reflect dilated lymphatics or necrotic lymph nodes . Mesenteric soft tissue results in severe narrowing of the mesenteric veins. Large volume ascites is noted. Fat fluid level within the ascites is noted. The findings suggest callous ascites. There is m ild peritoneal thickening. There is no evidence for a bowel obstruction. Small bowel wall thickening is again noted. No suspicious osseous lesions are identified. There is anasarca. IMPRESSION: 1. Severe extrinsic compression of the main portal vein due to an ill-defined 3.7 cm soft tissue mass . In addition, multifocal ill-defined retroperitoneal and mesenteric soft tissue which results in mul tifocal narrowing of the mesenteric veins, likely neoplastic. The findings could reflect metastatic d isease. Lymphoma is also within the differential. Associated tubular hypodensities within the mesente ry could reflect a dilated lymphatics or necrotic nodes. Overall, the findings are most consistent wi th a neoplastic process. An atypical infectious process is within the differential but considered muc h less likely. 2. Large volume ascites. 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 Mild peritoneal thickening which raises the possibility of peritoneal carc inomatosis. 3. Redemonstration of nonspecific small bowel wall thickening. No evidence for a bowel obstruction. N o pneumatosis, free air or portal venous gas. 4. Small left pleural effusion. 5. Indeterminate right basilar pleural calcifications. 6. Anasarca. ACT 112: Negative or not required by law. Electronically signed by: Efrain Stevens M.D. 02/01/2024 12:38 PM
--- NOTE | 2024-02-01 16:10 | Electrocardiogram Report ---
Test Reason : Blood Pressure : / mmHG Vent. Rate : 073 BPM Atrial Rate : 073 BPM P-R Int : 160 ms QRS Dur : 076 ms QT Int : 392 ms P-R-T Axes : 043 -16 050 degrees QTc Int : 431 ms Normal sinus rhythm Low voltage QRS Borderline ECG When compared with ECG of 04-DEC-2023 09:39, Nonspecific T wave abnormality now evident in Inferior leads Nonspecific T wave abnormality now evident in Anterior leads Confirmed by Gopi Alarcon ([id number]) on 02/01/2024 4:10:25 PM Referred By: [facility] Confirmed By:Gopi Alarcon
--- NOTE | 2024-02-01 16:11 | Emergency Department Note ---
Impression & Plan Malignant ascites, HIV (human immunodeficiency virus infection), Intraabdominal mass ED Provider Note NAME: MARGARITO [id number] FLUSHAMAR AGE: 43 SEX: M : 1980 ARRIVES VIA: Walk-In INFORMANT: Patient ED PROVIDER(S): Kumar Caldwell MD CHIEF COMPLAINT: Abdominal distension. PLAN: Disposition: Admit MEDICAL DECISION MAKING: The patient is a 43-year-old gentleman, inmate at [facility] with past medical history of HIV on HAART with CD4 71 and undetectable viral load who presents to the emergency department via EMS for evaluation of abdominal distention, weight loss, decreased appetite over the past month. Patient reports she is moving his bowels and this is somewhat loose. He denies any fevers, cough, congestion. He reports feeling nauseated but denies vomiting. Patient was last admitted to this facility from 12/03-12/08 for sepsis in the setting of positive enterovirus/rhinovirus and parainfluenza infections as well as concern for anaplasmosis for which he completed treatment. 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 Of note, the patient did arrive to emergency department during time of high volume, acuity and prolonged emergency department waiting times in the setting of global [employer] outage. On evaluation patient is acute on chronically ill-appearing but no acute distress, afebrile with blood pressure 90s/70s with normal mentation and vital signs otherwise stable. He has dry mucous membranes but does have distended abdomen with generalized abdominal discomfort without discrete tenderness to palpation. No guarding or rebound. EKG without overt acute ischemia. CXR negative for acute cardiopulmonary process per my personal preliminary review/interpretation. WBC 12 K with neutrophil predominance but no left shift, nonspecific. H/H 9.7/24.9 proximate to prior range of values in setting of chronic anemia. Platelets within normal limits. Chemistry without metabolic acidosis. Electrolytes without significant abnormality. Albumin is chronically low at 2.4. LFTs otherwise unremarkable. INR is normal. CT abdomen pelvis was performed and demonstrates findings suggestive of metastatic disease with ill-defined 3.7 cm soft tissue mass with extrinsic compression of the main portal vein. There is also multifocal ill-defined retroperitoneal mesenteric soft tissue with multifocal narrowing of mesenteric veins that is likely neoplastic. Lymphoma is considered in the differential. Atypical infectious process is also within the differential but considered less likely. 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 Mild peritoneal thickening raises possibility of peritoneal carcinomatosis. Nonspecific small bowel wall thickening is noted without evidence of obstruction. There is no pneumatosis. There is a small left pleural effusion. Indeterminate right basilar pleural calcifications are described. There is anasarca in the setting of hypoalbuminemia. Findings reviewed the patient he does agree with plan for admission for further evaluation and management. Case was discussed with Dr. Ceballos, [facility] hospitalist, who will evaluate the patient for admission. Therapeutic and diagnostic paracentesis performed in the emergency department per my procedure note. ~5L Milky white fluid was obtained consistent with suspicion for chylous ascites. Cell counts are not suggestive of SBP with WBC 96 and neutrophil percent 18. Admitting team was updated. Further management per admitting team. Triage Nursing notes reviewed and agree them. Prior/external medical records reviewed Vital Signs: reviewed Differential diagnosis: Appendicitis, testicular torsion, infections, diverticulitis, UTI, obstruction, mesenteric ischemia, aortic pathology, inflammatory bowel disease, renal colic, PUD, pancreatitis, biliary pathology, hernia, volvulus, constipation, as well as other pathologies. ER treatment provided: See below. Diagnostics interpreted by me: ECG: NSR, 73 bpm, no ectopy, no overt ST elevation or depression. Cardiac Monitoring: An order for continuous cardiac monitoring was placed and demonstrated NSR, 73 bpm, no ectopy. Laboratory studies: See below Imaging studies: See below Consultation(s): Case was discussed with Dr. Ceballos, [facility] hospitalist, who will evaluate the patient for admission. HPI: The patient is a 43-year-old gentleman, inmate at [facility] with past medical history of HIV on HAART with CD4 71 and undetectable viral load who presents to the emergency department via EMS for evaluation of abdominal distention, weight loss, decreased appetite over the past month. Patient reports she is moving his bowels and this is somewhat loose. He denies any fevers, cough, congestion. He reports feeling nauseated but denies vomiting. Patient was last admitted to this facility from 12/03-12/08 for sepsis in the setting of positive enterovirus/rhinovirus and parainfluenza infections as well as concern for anaplasmosis for which he completed treatment. 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 ROS: See above HPI for pertinent positives & negatives. A total of 10 systems reviewed and were otherwise negative. VITALS:See Below PHYSICAL EXAMINATION: GENERAL: Awake, alert, fatigued/acute on chronically ill-appearing, in no distress, cachectic. HENT: Normocephalic, atraumatic. Oropharynx with dry mucous membranes. EYES: Normal conjunctiva. Sclera non-icteric. NECK: Supple. No nuchal rigidity. FROM. No JVD. RESPIRATORY: Clear to auscultation. CARDIAC: Regular rate, normal rhythm. Extremities warm and well perfused. Pulses equal. ABDOMEN: Distended. Generalized abdominal discomfort without discrete tenderness to palpation. No rebound or guarding. MUSCULOSKELETAL: Chest examination reveals no tenderness. The back is symmetrical on inspection without obvious abnormality. There is no CVA tenderness to palpation. No joint edema. LOWER EXTREMITIES: Calves are equal size bilaterally and non-tender. No edema. No discoloration. NEURO: Normal sensorium. No sensory or motor deficits noted. SKIN: No rash or jaundice noted. ED COURSE: Times/Reassessments: Procedures: Paracentesis Indication: Ascites Verbal consent was obtained after the risks and benefits were explained. At this time, the risks of the procedure are less than the risks of NOT performing the procedure. The patient was placed in the supine position and the right lower abdomen was prepped with chlorhexidine and draped in the standard fashion. Site was anesthetized locally with 1% lidocaine without epinephrine. Paracentesis needle was carefully advanced into peritoneal cavity. Milky-white fluid was obtained and the pigtail catheter was advanced while the needle was withdrawn. 4200+cc of milky-white fluid was obtained and sent for studies. A bandaid was placed. The patient tolerated the procedure well and there were no complications. Kumar Caldwell MD Past Med/Surg History Problem List (Updated 02/03/24 @ 09:44 by Kumar Caldwell MD) Intraabdominal mass (Acute) Malignant ascites (Acute) Anaplasmosis Cachexia associated with AIDS Enterovirus infection (Acute) Infection due to parainfluenza virus 3 (Acute) Anemia (Acute) Hypotension (Acute) Emphysema lung Mycobacterium avium complex (Acute) Enteritis Abdominal pain (Acute) Anemia (Acute) Acute hyponatremia (Acute) Skin lesion of chest wall Dyspnea Irritable bowel syndrome Vision loss of left eye Abnormal computerized tomography of biliary tract LVH (left ventricular hypertrophy) Abnormal CT scan, chest Sepsis (Acute) Cough (Acute) Anemia (Acute) Hypotension (Acute) HIV (human immunodeficiency virus infection) (Acute) Medical History Diarrhea Hyperlipemia Iron deficiency anemia Vitamin D deficiency Social History Smoking Status: Never smoker Second Hand Exposure: No; Do You Dip or Chew Tobacco: No; Hx Alcohol Use: No Hx Substance Use: No Preferred Language: Marshallese Communication Ability: Effective Spring Bender Required: No Beliefs That Will Affect Care: None Current Living Situation: Other Current Living Situation Comment: [facility] Other Information That Helps Us Care for You: No Feels Safe at Home: Yes Safety Concerns: Feels Safe At This Time Assistive Devices: Hospital Bed and Walker Allergies Allergies Allergy/AdvReac Type Severity Reaction Status Date / Time No Known Allergies Allergy Verified 02/01/24 15:28 Home Meds Home Medications Medication Instructions Recorded Confirmed A&D Ointment 1 applic topical DAILY 02/01/24 02/01/24 Biktarvy 1 tab PO DAILY 02/01/24 02/01/24 Lactobacillus acidophilus 0 mg PO BID 02/01/24 02/01/24 (Acidophilus capsule) Robitussin Max Stren 100/5ml 15 ml PO QID PRN .cough 02/01/24 02/01/24 Vitamin E Lotion 1 applic topical TID 02/01/24 02/01/24 acetaminophen 325 mg tablet 650 mg PO QID PRN Pain 02/01/24 02/01/24 (Tylenol) azithromycin 500 mg tablet 500 mg PO DAILY 02/01/24 02/01/24 brimonidine 0.15 % eye drops 1 drp OPL BID 02/01/24 02/01/24 cholecalciferol (vitamin D3) 25 25 mcg PO DAILY 02/01/24 02/01/24 mcg (1,000 unit) tablet (Vitamin D3) cholestyramine (with sugar) 4 gram 4 g PO BID 02/01/24 02/01/24 powder for susp in a packet (Questran) cyanocobalamin (vitamin B-12) 1,000 mcg IM .[id number] 02/01/24 02/01/24 1,000 mcg/mL injection solution dicyclomine 10 mg capsule 10 mg PO BID PRN Pain 02/01/24 02/01/24 difluprednate 0.05 % eye drops 1 drp OPL .[id number] 02/01/24 02/01/24 difluprednate 0.05 % eye drops 1 drp OPR BID 02/01/24 02/01/24 ergocalciferol (vitamin D2) 1,250 1,250 mcg PO .WEEKLY 02/01/24 02/01/24 mcg (50,000 unit) capsule (Vitamin D2) ethambutol 100 mg tablet 50 mg PO DAILY 02/01/24 02/01/24 ethambutol 400 mg tablet 800 mg PO DAILY 02/01/24 02/01/24 levofloxacin 250 mg tablet 250 mg PO DAILY 02/01/24 02/01/24 loperamide 2 mg tablet (Imodium 2 mg PO TID PRN Diarrhea 02/01/24 02/01/24 A-D) midodrine 5 mg tablet 5 mg PO BID 02/01/24 02/01/24 multivitamin 1 tab PO DAILY 02/01/24 02/01/24 spironolactone 25 mg tablet 25 mg PO DIRECTED 02/01/24 02/01/24 sulfamethoxazole 800 1 tab PO DAILY 02/01/24 02/01/24 mg-trimethoprim 160 mg tablet (Bactrim DS) umeclidinium 62.5 mcg/actuation 1 inh inhalation DAILY 02/01/24 02/01/24 blister powder for inhalation (Incruse Ellipta) Results & Data (ED) Vital Signs Vital Signs - 24 hr 02/01/24 13:26 02/01/24 15:25 Pulse Rate [Apical] 66 68 Pulse Rhythm [Apical] Regular Regular Pulse Strength [Apical] Normal Normal Respiratory Rate 16 16 Respiratory Effort / Characteristics Non-Labored Spontaneous Non-Labored Spontaneous Respiratory Depth Normal Normal Respiratory Pattern Regular Regular Blood Pressure [Right Arm] 92/75 L 90/74 L Blood Pressure Mean [Right Arm] 80 79 Blood Pressure Position [Right Arm] Sitting Lying Pulse Oximetry 98 95 Oxygen Delivery Method Room Air Room Air Laboratory Data Attestation: I reviewed the patient's lab results. 02/03/24 06:24 02/03/24 06:24 Lab Results 02/01/24 02/01/24 02/01/24 Range/Units 10:00 10:08 10:25 WBC 12.02 H (4.8-10.8) K/ul RBC 3.90 L (4.70-6.10) M/uL Hgb 9.7 L (14.0-18.0) g/dl Hct 31.4 L (42.0-52.0) % MCV 80.5 (80.0-100.0) fL MCH 24.9 L (25.0-34.0) pg MCHC 30.9 L (32.0-36.0) g/dL RDW Std Deviation 55.6 H (36.4-46.3) fL RDW Coeff of Brody 19.1 H (11.5-14.5) % Plt Count 311 (130-400) K/uL MPV 9.3 L (9.4-12.4) fL Immature Gran % (Auto) 0.7 % Neut % (Auto) 79.1 % Lymph % (Auto) 12.4 % Limestone % (Auto) 5.6 % Eos % (Auto) 1.5 % Baso % (Auto) 0.7 % Neut # (Auto) 9.51 H (1.40-6.50) K/uL Lymph # (Auto) 1.49 (1.20-3.40) K/uL Limestone # (Auto) 0.67 H (0.11-0.59) K/uL Eos # (Auto) 0.18 (0.00-0.50) K/uL Baso # (Auto) 0.08 (0.00-0.20) K/uL Immature Gran # (Auto) 0.09 (0.01-0.20) K/uL Polychromasia 1+ Hypochromasia Present Tear Drop Cells 1+ Ovalocytes 1+ PT 11.4 (9.0-12.0) Seconds INR 1.1 (0.9-1.1) Sodium 134 L (136-145) mmol/L Potassium 4.8 (3.5-5.1) mmol/L Chloride 103 (98-107) mmol/L Carbon Dioxide 27 (21-32) mmol/L Anion Gap 4 (3-11) BUN 15 (6-23) mg/dl Creatinine 1.08 (0.6-1.4) mg/dl Est Cr Clr Drug Dosing Not Reportable Est GFR ( Amer) 98.3 ml/min Est GFR (Non-Af Amer) 84.8 ml/min BUN/Creatinine Ratio 13.9 (10-20) Glucose 80 (70-99(Fasting)) mg/dl Calcium 7.9 L (8.6-10.3) mg/dl Total Bilirubin 0.3 (0.2-1.0) mg/dl AST 31 (13-39) U/L ALT 25 (7-52) U/L Alkaline Phosphatase 138 H (34-104) U/L Total Protein 7.0 (6.0-8.3) gm/dl Albumin 2.4 L (3.4-5.0) gm/dl Globulin 4.6 H (2.5-4.0) gm/dl Albumin/Globulin Ratio 0.5 L (0.9-2) Administered Medications Azithromycin (Azithromycin 250 Mg Tab) 500 mg PO DAILY JANES Stop: 03/03/24 08:59 Last Admin: 02/02/24 08:29 Dose: 500 mg Documented By: ZACHERY Bictegravir/Emtricitabine/Tenofovir (Biktarvy) 1 each PO DAILY JANES Stop: 03/03/24 12:59 Last Admin: 02/02/24 13:04 Dose: 1 each Documented By: ZACHERY Brimonidine Tartrate (Brimonidine Tartrate-P 0.15% 5 Ml Btl) 1 drops OPL BID [facility] Stop: 03/02/24 20:59 Last Admin: 02/02/24 21:27 Dose: Not Given Documented By: Admin: 02/02/24 08:27 Dose: 1 drops Documented By: Admin: 02/01/24 21:04 Dose: Not Given Documented By: CARMEN Dicyclomine HCl (Dicyclomine Hcl 10 Mg Cap) 10 mg PO BID PRN PRN Reason: ABDOMINAL PAIN Stop: 03/02/24 19:07 Last Admin: 02/02/24 08:29 Dose: 10 mg Documented By: ZACHERY Emollient Ointment (Petrolatum 16 Oz Jar) 1 oz EXT DAILY JANES Stop: 03/03/24 08:59 Last Admin: 02/02/24 08:32 Dose: Not Given Documented By: ZACHERY Enoxaparin Sodium (Enoxaparin Inj 40 Mg/0.4 Ml Syr) 40 mg SQ Q24H JANES Stop: 03/02/24 19:59 Last Admin: 02/02/24 21:24 Dose: 40 mg Documented By: Admin: 02/01/24 21:02 Dose: 40 mg Documented By: CARMEN Ergocalciferol (Ergocalciferol 1250 Mcg (50,000 Units) Cap) 1,250 mcg PO Fr@0900 JANES Stop: 03/02/24 19:29 Last Admin: 02/01/24 21:04 Dose: Not Given Documented By: CARMEN Ethambutol HCl (Ethambutol Hcl 100 Mg Tab) 50 mg PO DAILY JANES Stop: 03/03/24 08:59 Last Admin: 02/02/24 08:29 Dose: 50 mg Documented By: ZACHERY Ethambutol HCl (Ethambutol Hcl 400 Mg Tab) 800 mg PO DAILY JANES Stop: 03/03/24 08:59 Last Admin: 02/02/24 08:29 Dose: 800 mg Documented By: ZACHERY Midodrine (Midodrine Hcl 2.5 Mg Tab) 5 mg PO BID JANES Stop: 03/02/24 20:59 Last Admin: 02/02/24 21:23 Dose: 5 mg Documented By: Admin: 02/02/24 08:28 Dose: 5 mg Documented By: Admin: 02/01/24 21:00 Dose: 5 mg Documented By: CARMEN Multivitamins (Multivitamin Tab) 1 tab PO DAILY JANES Stop: 03/03/24 08:59 Last Admin: 02/02/24 08:28 Dose: 1 tab Documented By: ZACHERY Difluprednate~Non- Formulary Patient's Own Med 1 each OPL 6XD JANES Stop: 03/03/24 12:59 Last Admin: 02/02/24 13:06 Dose: 1 drops Documented By: ZACHERY Difluprednate~Non- Formulary Patient's Own Med 1 each OPR BID JANES Stop: 03/03/24 20:59 Last Admin: 02/02/24 21:27 Dose: Not Given Documented By: CARMEN Vitamin E Lotion~Non -Formulary Patient's Own Med 1 each TOP TID JANES Stop: 03/03/24 13:59 Last Admin: 02/02/24 21:27 Dose: Not Given Documented By: Admin: 02/02/24 13:05 Dose: 1 ea Documented By: ZACHERY Trimethoprim/Sulfamethoxazole (Sulfamethoxazole/Trimethoprim Ds 800/160mg Tab) 1 tab PO DAILY JANES Stop: 03/03/24 08:59 Last Admin: 02/02/24 08:28 Dose: 1 tab Documented By: ZACHERY Umeclidinium Dearing (Umeclidinium Dearing 62.5mcg/Blister 7 Puffs/Inhaler) 1 puffs INH DAILY JANES Stop: 03/03/24 08:59 Last Admin: 02/02/24 08:27 Dose: Not Given Documented By: ZACHERY Vitamin D (Cholecalciferol 25 Mcg (1000 Units) Tab) 25 mcg PO DAILY JANES Stop: 03/03/24 08:59 Last Admin: 02/02/24 08:29 Dose: 25 mcg Documented By: ZACHERY Discontinued Medications Albumin Human (Albumin 5%) 250 mls @ 500 mls/hr IV ONE ONE Stop: 02/01/24 16:09 Last Infusion: 02/01/24 17:34 Dose: Infused Documented By: Admin: 02/01/24 17:04 Dose: 500 mls/hr Documented By: Sodium Chloride (Nss) 500 mls @ 125 mls/hr IV .Q4H JANES Stop: 02/01/24 19:44 Last Infusion: 02/01/24 22:40 Dose: Infused Documented By: Admin: 02/01/24 17:04 Dose: 125 mls/hr Documented By: Albumin Human (Albumin 25%) 12.5 gm in 50 mls @ 50 mls/hr IV Q1H JANES Stop: 02/01/24 21:29 Last Infusion: 02/01/24 22:58 Dose: Infused Documented By: Admin: 02/01/24 21:58 Dose: 50 mls/hr Documented By: AENatasha Infusion: 02/01/24 21:37 Dose: Infused Documented By: AENatasha Admin: 02/01/24 20:37 Dose: 50 mls/hr Documented By: Infusion: 02/01/24 20:34 Dose: Infused Documented By: Admin: 02/01/24 19:34 Dose: 50 mls/hr Documented By: CARMEN Ioversol (Optiray 320 100ml) 93 ml IV ONCE ONE Stop: 02/01/24 15:14 Last Admin: 02/01/24 15:13 Dose: 93 ml Documented By: ROBERTO Midodrine (Midodrine Hcl 2.5 Mg Tab) 5 mg PO ONE ONE Stop: 02/01/24 16:31 Last Admin: 02/01/24 17:04 Dose: 5 mg Documented By: MSG Hilliardaneous (*Biktarvy*Order Awaiting Action) 1 each N/A QS JANES Stop: 03/02/24 19:14 Last Admin: 02/02/24 08:30 Dose: Not Given Documented By: Admin: 02/01/24 23:01 Dose: Not Given Documented By: Admin: 02/01/24 21:04 Dose: Not Given Documented By: AENatasha Evanscellaneous (*Difluprednate*Order Awaiting Action) 1 each N/A QS JANES Stop: 03/02/24 19:29 Last Admin: 02/02/24 08:30 Dose: Not Given Documented By: Admin: 02/01/24 23:01 Dose: Not Given Documented By: Admin: 02/01/24 21:04 Dose: Not Given Documented By: CARMEN Hilliardaneous (*Difluprednate*Order Awaiting Action) 1 each N/A QS JANES Stop: 03/02/24 19:29 Last Admin: 02/02/24 08:30 Dose: Not Given Documented By: Admin: 02/01/24 23:01 Dose: Not Given Documented By: Admin: 02/01/24 21:05 Dose: Not Given Documented By: CARMEN Evanscellaneous (*Vitamin E Lotion*Order Awaiting Action) 1 each N/A QS JANES Stop: 03/02/24 19:29 Last Admin: 02/02/24 08:31 Dose: Not Given Documented By: Admin: 02/01/24 23:01 Dose: Not Given Documented By: Admin: 02/01/24 21:05 Dose: Not Given Documented By: CARMEN Spironolactone (Spironolactone 25 Mg Tab) 25 mg PO BID JANES Stop: 02/02/24 21:01 Last Admin: 02/02/24 22:20 Dose: Not Given Documented By: Admin: 02/02/24 08:28 Dose: Not Given Documented By: Admin: 02/01/24 22:02 Dose: Not Given Documented By: CARMEN Imaging Data Radiologist's Impression: Chest X-Ray 02/01/24 00:00 TEMPORARY Margarito Arias CLINICAL HISTORY: Abdominal pain TECHNIQUE: Single frontal radiograph of the chest was obtained. Comparison: None available at the time of this dictation. FINDINGS: No lines and tubes are seen. The cardiomediastinal silhouette is normal. Lungs are underinflated but clear. No evidence of pleural effusion or pneumothorax. IMPRESSION: No acute chest disease. ACT 112: Negative or not required by law. Electronically signed by: Karl Gillespie M.D. 02/01/2024 11:24 AM Abdomen/Pelvis CT 02/01/24 15:[address] OF THE ABDOMEN AND PELVIS WITH CONTRAST CLINICAL HISTORY: Abdominal pain, diarrhea and bloating. COMPARISON STUDY: CT of the abdomen and pelvis December 04, 2023. TECHNIQUE: Axial images of the abdomen and pelvis were obtained following intravenous injection of 93 cc of Optiray 320 IV. Sagittal and coronal reconstructions were viewed. Automated exposure control was utilized for the study. A dose lowering technique was utilized adhering to the principles of ALARA. FINDINGS: Emphysema is noted within the lower lungs. Right middle lobe and lingular opacities were shown on prior exams. There is a small left pleural effusion. Right pleural calcified densities are noted. A 2.7 cm partially calcified pleural density within the right lower hemithorax on image 41 of 421 is new since prior exam. There are no hepatic lesions. There is mild intrahepatic biliary ductal dilatation. Mild splenomegaly is noted. The adrenal glands, kidneys and pancreas are normal. There is severe narrowing of the portal vein, shown on image 123 of 421. Adjacent soft tissue measures 3.7 cm. There is also ill-defined mesenteric and retroperitoneal soft tissue suspicious for tumor. Tubular appearing low density foci within the mesentery could reflect dilated lymphatics or necrotic lymph nodes. Mesenteric soft tissue results in severe narrowing of the mesenteric veins. Large volume ascites is noted. Fat fluid level within the ascites is noted. The findings suggest callous ascites. There is mild peritoneal thickening. There is no evidence for a bowel obstruction. Small bowel wall thickening is again noted. No suspicious osseous lesions are identified. There is anasarca. IMPRESSION: 1. Severe extrinsic compression of the main portal vein due to an ill-defined 3.7 cm soft tissue mass. In addition, multifocal ill-defined retroperitoneal and mesenteric soft tissue which results in multifocal narrowing of the mesenteric veins, likely neoplastic. The findings could reflect metastatic disease. Lymphoma is also within the differential. Associated tubular hypodensities within the mesentery could reflect a dilated lymphatics or necrotic nodes. Overall, the findings are most consistent with a neoplastic process. An atypical infectious process is within the differential but considered much less likely. 2. Large volume ascites. 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 Mild peritoneal thickening which raises the possibility of peritoneal carcinomatosis. 3. Redemonstration of nonspecific small bowel wall thickening. No evidence for a bowel obstruction. No pneumatosis, free air or portal venous gas. 4. Small left pleural effusion. 5. Indeterminate right basilar pleural calcifications. 6. Anasarca. ACT 112: Negative or not required by law. Electronically signed by: Efrain Stevens M.D. 02/01/2024 12:38 PM Discharge Plan Visit Data Chief Complaint: Constipation Stated Complaint: BOWEL OBSTRUCTION ED Provider: Kumar Caldwell Discharge Problem: Malignant ascites, HIV (human immunodeficiency virus infection), Intraabdominal mass Patient Disposition: Admitted As Inpatient Discharge Instructions Interventions: ED Discharge Assessment Last Done: 02/01/24 18:33 Discharge Problem: HIV (human immunodeficiency virus infection) Qualifiers: HIV symptom status: unspecified Qualified Code(s): Z21 - Asymptomatic human immunodeficiency virus [HIV] infection status
[2024-02-01 16:45] LABS: INR 1.1 (0.9-1.1); Prothrombin Time 11.4 Seconds (9.0-12.0)
[2024-02-01] MEDS: MIDODRINE HCL 2.5 MG TAB PO ONE (17:04)
[2024-02-01] MEDS: SODIUM CHLORIDE 0.9% 500 ML IV SCH (17:04)
[2024-02-01] MEDS: ALBUMIN 5% 250 ML IV ONE (17:04)
[2024-02-01 17:05] LABS: Alanine Aminotransferase 25 U/L (7-52); Albumin Globulin Ratio 0.5 (0.9-2); Albumin Level 2.4 gm/dl (3.4-5.0); Alkaline Phosphatase 138 U/L (34-104); Anion Gap 4 (3-11); Aspartate Aminotransferase 31 U/L (13-39); BUN Creatinine Ratio 13.9 (10-20); Bilirubin,Total 0.3 mg/dl (0.2-1.0); Blood Urea Nitrogen 15 mg/dl (6-23); Calcium 7.9 mg/dl (8.6-10.3); Carbon Dioxide 27 mmol/L (21-32); Chloride 103 mmol/L (98-107); Est GFR (African American) 98.3 ml/min; Est GFR (Non-African American) 84.8 ml/min; Globulin 4.6 gm/dl (2.5-4.0); Glucose 80 mg/dl (70-99(Fasting)); Potassium 4.8 mmol/L (3.5-5.1); Sodium 134 mmol/L (136-145)
[2024-02-01 17:27] LABS: Basophils # (auto) 0.08 K/uL (0.00-0.20); Basophils % (auto) 0.7 %; Eosinophils # (auto) 0.18 K/uL (0.00-0.50); Eosinophils % (auto) 1.5 %; Hematocrit (blood only) 31.4 % (42.0-52.0); Hemoglobin 9.7 g/dl (14.0-18.0); Hypochromasia Present; Immature Granulocytes # (auto) 0.09 K/uL (0.01-0.20); Immature Granulocytes % (auto) 0.7 %; Lymphocytes # (auto) 1.49 K/uL (1.20-3.40); Lymphocytes % (auto) 12.4 %; Mean Corpuscular Hemoglobin 24.9 pg (25.0-34.0); Mean Corpuscular Hgb Conc 30.9 g/dL (32.0-36.0); Mean Corpuscular Volume 80.5 fL (80.0-100.0); Mean Platelet Volume 9.3 fL (9.4-12.4); Monocytes # (auto) 0.67 K/uL (0.11-0.59); Monocytes % (auto) 5.6 %; Neutrophils # (auto) 9.51 K/uL (1.40-6.50); Neutrophils % (auto) 79.1 %; Ovalocytes 1+; Platelet Count 311 K/uL (130-400); Polychromasia 1+; RDW Coefficient of Variation 19.1 % (11.5-14.5); RDW Standard Deviation 55.6 fL (36.4-46.3); Tear Drop Cells 1+; White Blood Count 12.02 K/ul (4.8-10.8)
[2024-02-01] MEDS ORDERED: ONDANSETRON INJ 2 MG/ML 2 ML VIAL IV PRN (19:08)
[2024-02-01] MEDS ORDERED: ACETAMINOPHEN 325 MG TAB PO PRN ×2 (19:08)
[2024-02-01] MEDS ORDERED: guaiFENesin SUGAR FREE 100 MG/5 ML UDC PO PRN (19:22)
[2024-02-01] MEDS: ALBUMIN 25% 12.5 GM/50 ML VIAL IV SCH (19:34)
[2024-02-01] MEDS: MIDODRINE HCL 2.5 MG TAB PO SCH (21:00)
[2024-02-01] MEDS: ENOXAPARIN INJ 40 MG/0.4 ML SYR SQ SCH (21:02)
[2024-02-01] MEDS: ERGOCALCIFEROL 1250 MCG (50,000 UNITS) CAP PO SCH (21:04)
[2024-02-01] MEDS: BRIMONIDINE TARTRATE-P 0.15% 5 ML BTL OPL SCH (21:04)
[2024-02-01] MEDS: SPIRONOLACTONE 25 MG TAB PO SCH (22:02)
[2024-02-02 03:00] LABS: Appearance Peritoneal Fluid Turbid; Color Peritoneal Fluid Pale Yellow; RBC Peritoneal Fluid Auto < 2000 /uL; WBC Peritoneal Fluid Auto 96 /ul (0-300)
[2024-02-02 03:05] LABS: Basophils, Fluid 0 %; Eosinophils, Fluid 0 %; Lymphocytes, Fluid 68 %; Mono,Macrophage,Mesothelial 14 %; Neutrophils, Fluid 18 %
[2024-02-02 06:55] LABS: Basophils # (auto) 0.07 K/uL (0.00-0.20); Basophils % (auto) 0.7 %; Eosinophils # (auto) 0.23 K/uL (0.00-0.50); Eosinophils % (auto) 2.2 %; Hematocrit (blood only) 25.5 % (42.0-52.0); Hemoglobin 8.1 g/dl (14.0-18.0); Immature Granulocytes # (auto) 0.07 K/uL (0.01-0.20); Immature Granulocytes % (auto) 0.7 %; Lymphocytes % (auto) 8.7 %; Mean Corpuscular Hemoglobin 25.6 pg (25.0-34.0); Mean Corpuscular Hgb Conc 31.8 g/dL (32.0-36.0); Mean Corpuscular Volume 80.4 fL (80.0-100.0); Mean Platelet Volume 8.9 fL (9.4-12.4); Monocytes # (auto) 0.52 K/uL (0.11-0.59); Neutrophils # (auto) 8.54 K/uL (1.40-6.50); Neutrophils % (auto) 82.7 %; Platelet Count 233 K/uL (130-400); RDW Standard Deviation 56.3 fL (36.4-46.3); Red Blood Count 3.17 M/uL (4.70-6.10); White Blood Count 10.33 K/ul (4.8-10.8)
[2024-02-02 06:56] LABS: Anion Gap 6 (3-11); Calcium 7.6 mg/dl (8.6-10.3); Carbon Dioxide 23 mmol/L (21-32); Chloride 105 mmol/L (98-107); Potassium 4.2 mmol/L (3.5-5.1); Sodium 134 mmol/L (136-145)
[2024-02-02 07:02] LABS: BUN Creatinine Ratio 16.8 (10-20); Blood Urea Nitrogen 16 mg/dl (6-23); Est GFR (African American) 114.8 ml/min; Glucose 75 mg/dl (70-99(Fasting))
[2024-02-02] MEDS: UMECLIDINIUM BROMIDE 62.5MCG/BLISTER 7 PUFFS/INHALER INH SCH (08:27)
[2024-02-02] MEDS: SULFAMETHOXAZOLE/TRIMETHOPRIM DS 800/160MG TAB PO SCH (08:28)
[2024-02-02] MEDS: MULTIVITAMIN TAB PO SCH (08:28)
[2024-02-02] MEDS: CHOLECALCIFEROL 25 MCG (1000 UNITS) TAB PO SCH (08:29)
[2024-02-02] MEDS: ETHAMBUTOL HCL 100 MG PO SCH (08:29)
[2024-02-02] MEDS: DICYCLOMINE HCL 10 MG CAP PO PRN (08:29)
[2024-02-02] MEDS: ETHAMBUTOL HCL 400 MG TAB PO SCH (08:29)
[2024-02-02] MEDS: AZITHROMYCIN 250 MG TAB PO SCH (08:29)
[2024-02-02] MEDS: PETROLATUM 16 OZ JAR EXT SCH (08:32)
[2024-02-02] MEDS ORDERED: PETROLATUM 16 OZ JAR EXT SCH (09:00)
[2024-02-02] MEDS: BIKTARVY PO SCH (13:04)
[2024-02-02] MEDS: VITAMIN E TOP SCH (13:05)
[2024-02-02] MEDS: DIFLUPREDNATE OPL SCH (13:06)
--- NOTE | 2024-02-02 18:26 | Hospitalist Progress Note ---
Date of Service February 02, 2024 Assessment & Plan (1) Malignant ascites: Plan: Presented with large volume ascites. Patient noticed fluid in the abdomen which has progressively worsened over posterior, however in the last month the fluid has increased and is not going away. - CT A/P on admission revealed severe extrinsic compression of main portal vein due to ill-defined 3.7 cm soft tissue mass. > Multifocal ill-defined retroperitoneal and mesenteric soft tissue s uspicious for tumor, likely neoplastic. > Associated tubular hypodensities within the mesentery could reflect dilated lymphatics or necrotic nodes. > Overall, the findings are most consistent with a neoplastic process. An atypical infectious process is within the differential but considered much less likely. - Paracentesis on 02/01/2024 with approximately 5 L of milky fluid removed. 37.5 g 25% albumin given after. > Serum albumin 2.4, albumin concentration of ascitic fluid <1.5 --> portal hypertension is not necessarily the cause of ascites with SAAG < 1.1 g/dL. > AFB culture/smear ordered - pending. - Patient needs a tertiary center for advanced management of his complex condition. He remains stable at this time so transfer over the weekend is not indicated. 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 Generally not compliant with ethambutol. > Patient noncompliant with MAC treatment at the [facility] due to having to walk up and down to the [facility] to get his ethambutol which is difficult with his muscle wasting and deconditioning. He does take Biktarvy/Bactrim as directed. Continue azithromycin 500 mg daily Continue Bactrim DS 1 tab daily Continue Ethambutol. Confirmed w/ SCI patient takes 850 mg by mouth daily. (3) HIV (human immunodeficiency virus infection): Plan: History of HIV History of HIV on Biktarvy. CD4 count October 2023 was 53. > Pending records of bone marrow biopsy from [place], per pt had diffuse infiltration of MAC into marrow. Low CD4 count however undetectable viral load at last check indicative of proper ART compliance and was continued on Biktarvy/Bactrim after ID consultation 12/06/2023 Continue Biktarvy and ppx bactrim WBC 12.02, lymphocyte count 1.49 on admission. (4) Anemia: Plan: History of anemia Hemoglobin on admission 9.7, MCV 80 low, iron infusions were not indicated > Hgb 8.1 on 02/01 --monitor closely. - ? Anemia of chronic disease vs bone marrow failure due to MAC infiltration Patient w/o hx of bleeding, low suspicion for hemolysis on prior workup, was pending evaluation for aplastic anemia however overall disease was consistent with anemia of chronic disease. Ferritin was not low, iron infusions were not indicated - High risk of thrombosis. Continue Lovenox. (5) Hypotension: Plan: Continue midodrine 5 mg twice daily hold for SBP greater than 100 Plan Discussed case with GI doctor at [facility] Ordered AFB culture Reviewed prior documentation VTE PPx: Lovenox CODE STATUS: Full code Admission and Anticipated Discharge Date Admission Date: February 01, 2024 Subjective Patient seen and evaluated at bedside. He reports that he is feeling okay but already notes some increased fluid accumulation in his abdomen since his paracentesis yesterday. He denies any abdominal pain, nausea, vomiting. He is well tolerating his regular diet so far. We discussed that ultimately he needs to be at a tertiary center that can fully address his complex needs. Patient is agreeable. No additional complaints or concerns at this time. Physical Exam Physical Exam: General: No acute distress, nondiaphoretic, cachectic appearing with bitemporal wasting. Skin: The skin was without rashes, erythema, edema, or bruising. Cardiac: Regular rate and rhythm without murmurs gallops or rubs. Pulm: Clear to auscultation bilaterally without wheezes, rales or rhonchi. No retractions or accessory muscle use. Abdominal: Soft, distended with minor fluid wave. Nontender, no rebound, no guarding. Neuro: A&O x3. No focal neurological deficits. Results & Data Results & Data Vital Signs (Past 12 Hours) Vital Signs Temp Pulse Pulse Resp BP Pulse Ox O2 Del Method 02/02/24 15:00 36.7 C 66 18 94/64 L 98 Room Air 02/02/24 13:48 62 02/02/24 11:28 36.4 C L 78 20 97/64 L 96 Room Air 02/02/24 08:26 36.6 C 69 18 95/63 L 98 Room Air 02/02/24 08:00 Room Air 02/02/24 07:00 66 Laboratory Results Reviewed CBC Reviewed chemistries Reviewed paracentesis analysis Diagnostic Findings CT OF THE ABDOMEN AND PELVIS WITH CONTRAST CLINICAL HISTORY: Abdominal pain, diarrhea and bloating. COMPARISON STUDY: CT of the abdomen and pelvis December 04, 2023. TECHNIQUE: Axial images of the abdomen and pelvis were obtained following intravenous injection of 93 cc of Optiray 320 IV. Sagittal and coronal reconstructions were viewed. Automated exposure control was utilized for the study. A dose lowering technique was utilized adhering to the principles of ALARA. FINDINGS: Emphysema is noted within the lower lungs. Right middle lobe and lingular opacities were shown on prior exams. There is a small left pleural effusion. Right pleural calcified densities are noted. A 2.7 cm partially calcified pleural density within the right lower hemithorax on image 41 of 421 is new since prior exam. There are no hepatic lesions. There is mild in trahepatic biliary ductal dilatation. Mild splenomegaly is noted. The adrenal glands, kidneys and pancreas are normal. There is severe narrowing of the portal vein, shown on image 123 of 421. Adjacent soft tissue measures 3.7 cm. There is also ill-defined mesenteric and retroperitoneal soft tissue suspicious for tumor. Tubular appearing low density foci within the mesentery could reflect dilated lymphatics or necrotic lymph nodes. Mesenteric soft tissue results in severe narrowing of the mesenteric veins. Large volume ascites is noted. Fat fluid level within the ascites is noted. The findings suggest callous ascites. There is mild peritoneal thickening. There is no evidence for a bowel obstruction. Small bowel wall thickening is again noted. No suspicious osseous lesions are identified. There is anasarca. IMPRESSION: 1. Severe extrinsic compression of the main portal vein due to an ill-defined 3.7 cm soft tissue mass. In addition, multifocal ill-defined retroperitoneal and mesenteric soft tissue which results in multifocal narrowing of the mesenteric veins, likely neoplastic. The findings could reflect metastatic disease. Lymphoma is also within the differential. Associated tubular hypodensities within the mesentery could reflect a dilated lymphatics or necrotic nodes. Overall, the findings are most consistent with a neoplastic process. An atypical infectious process is within the differential but considered much less likely. 2. Large volume ascites. 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 Mild peritoneal thickening which raises the possibility of peritoneal carcinomatosis. 3. Redemonstration of nonspecific small bowel wall thickening. No evidence for a bowel obstruction. No pneumatosis, free air or portal venous gas. 4. Small left pleural effusion. 5. Indeterminate right basilar pleural calcifications. 6. Anasarca. PG Care Time/CCT Total # of Minutes Spent Total Time Spent with Patient: Total time spent is greater than 50% in coordination of care (as documented) at patient's floor/unit and/or counseling patient: Coding Level of Care Code 91270 SUB INP/OBS CARE 3/50MIN Diagnoses Malignant ascites R18.0 Mycobacterium avium complex A31.0 HIV (human immunodeficiency virus infection) B20 Anemia D64.9 Hypotension I95.9
[2024-02-02] MEDS: DIFLUPREDNATE OPR SCH (21:27)
[2024-02-03 07:01] LABS: Basophils # (auto) 0.07 K/uL (0.00-0.20); Basophils % (auto) 0.6 %; Eosinophils % (auto) 1.8 %; Hematocrit (blood only) 27.5 % (42.0-52.0); Hemoglobin 8.7 g/dl (14.0-18.0); Immature Granulocytes # (auto) 0.08 K/uL (0.01-0.20); Immature Granulocytes % (auto) 0.7 %; Lymphocytes # (auto) 1.14 K/uL (1.20-3.40); Lymphocytes % (auto) 10.2 %; Mean Corpuscular Hemoglobin 25.2 pg (25.0-34.0); Mean Corpuscular Hgb Conc 31.6 g/dL (32.0-36.0); Mean Corpuscular Volume 79.7 fL (80.0-100.0); Mean Platelet Volume 8.8 fL (9.4-12.4); Monocytes # (auto) 0.79 K/uL (0.11-0.59); Neutrophils # (auto) 8.93 K/uL (1.40-6.50); Neutrophils % (auto) 79.7 %; Platelet Count 250 K/uL (130-400); RDW Coefficient of Variation 18.9 % (11.5-14.5); RDW Standard Deviation 55.4 fL (36.4-46.3); Red Blood Count 3.45 M/uL (4.70-6.10); White Blood Count 11.21 K/ul (4.8-10.8)
[2024-02-03 07:19] LABS: Calcium 7.7 mg/dl (8.6-10.3); Creatinine Clr Calc Pharmacy 76.7 ml/min; Est GFR (African American) 107.9 ml/min; Est GFR (Non-African American) 93.1 ml/min; Potassium 4.4 mmol/L (3.5-5.1)
[2024-02-03 08:52] LABS: Albumin Level 2.5 gm/dl (3.4-5.0); Bilirubin Direct 0.1 mg/dl (0-0.2); Bilirubin,Total 0.3 mg/dl (0.2-1.0); Total Protein 6.1 gm/dl (6.0-8.3)
--- NOTE | 2024-02-03 11:53 | Hospitalist Progress Note ---
Date of Service February 03, 2024 Assessment & Plan (1) Malignant ascites: Plan: Presented with large volume ascites. Patient noticed fluid in the abdomen which has progressively worsened over posterior, however in the last month the fluid has increased and is not going away. - CT A/P on admission revealed severe extrinsic compression of main portal vein due to ill-defined 3.7 cm soft tissue mass. > Multifocal ill-defined retroperitoneal and mesenteric soft tissue s uspicious for tumor, likely neoplastic. > Associated tubular hypodensities within the mesentery could reflect dilated lymphatics or necrotic nodes. > Overall, the findings are most consistent with a neoplastic process. An atypical infectious process is within the differential but considered much less likely. - Paracentesis on 02/01/2024 with approximately 5 L of milky fluid removed. 37.5 g 25% albumin given after. > Serum albumin 2.4, albumin concentration of ascitic fluid <1.5 --> portal hypertension is not necessarily the cause of ascites with SAAG < 1.1 g/dL. > AFB culture/smear ordered - pending. - Lactate dehydrogenase WNL at 125 on 02/02 - Patient needs a tertiary center for advanced management of his complex condition. He remains stable at this time so transfer over the weekend is not indicated. 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 Generally not compliant with ethambutol. > Per review of discharge note from 11/10/23, patient was discharged on ethambutol 850 mg x 30 days. > Patient noncompliant with [facility] treatment at the [facility] due to having to walk up and down to the [facility] to get his ethambutol which is difficult with his muscle wasting and deconditioning. He does take Biktarvy/Bactrim as directed. Continue azithromycin 500 mg daily Continue Bactrim DS 1 tab daily Continue Ethambutol. Confirmed w/ SCI patient takes 850 mg by mouth daily. (3) HIV (human immunodeficiency virus infection): Plan: History of HIV History of HIV on Biktarvy. CD4 count October 2023 was 53. > Pending records of bone marrow biopsy from [place], per pt had diffuse infiltration of MAC into marrow. Low CD4 count however undetectable viral load at last check indicative of proper ART compliance and was continued on Biktarvy/Bactrim after ID consultation 12/06/2023 Continue Biktarvy and ppx bactrim WBC 12.02, lymphocyte count 1.49 on admission. (4) Anemia: Plan: History of anemia Hemoglobin on admission 9.7, MCV 80 low, iron infusions were not indicated > Hgb 8.1 on 02/01 --monitor closely. > Hgb 8.7 on 02/02. Hemodynamically stable. No indication for blood transfusion at this time. - ? Anemia of chronic disease vs bone marrow failure due to MAC infiltration Patient w/o hx of bleeding, low suspicion for hemolysis on prior workup, was pending evaluation for aplastic anemia however overall disease was consistent with anemia of chronic disease. Ferritin was not low, iron infusions were not indicated. - High risk of thrombosis. Continue Lovenox. (5) Hypotension: Plan: Continue midodrine 5 mg twice daily hold for SBP greater than 100 Remains hypotensive with stable MAP. Asymptomatic with hypotension. Plan Discussed case with [facility] -- transport scheduled for 09 on 02/03. Reviewed prior documentation VTE PPx: Lovenox CODE STATUS: Full code Admission and Anticipated Discharge Date Admission Date: February 01, 2024 Subjective Patient seen and evaluated at bedside with two guards in the room. He reports that his stomach feels "tight" as the fluid has began reaccumulating. He denies any nausea, vomiting, diarrhea, shortness of breath, or chest pain. He did have 2 large bowel movements today which he reports were formed stool. We discussed possible transfer to a tertiary center tomorrow if possible. Patient is agreeable. No additional complaints or concerns at this time. [place] [facility] [place] 0900 on 02/03. Physical Exam Physical Exam: General: No acute distress, nondiaphoretic, cachectic appearing with bitemporal wasting. Skin: The skin was without rashes, erythema, edema, or bruising. Cardiac: Regular rate and rhythm without murmurs gallops or rubs. Pulm: Clear to auscultation bilaterally without wheezes, rales or rhonchi. No respiratory distress. 99% on room air. Abdominal: Soft, distended with minor fluid wave. Nontender, no rebound, no guarding. Neuro: A&O x3. No focal neurological deficits. Results & Data Results & Data Vital Signs (Past 12 Hours) Vital Signs Temp Pulse Pulse Resp BP Pulse Ox O2 Del Method 02/03/24 11:33 35.9 C L 78 16 103/73 99 Room Air 02/03/24 09:45 Room Air 02/03/24 07:40 36.3 C L 72 16 105/74 100 Room Air 02/03/24 07:34 74 02/03/24 03:55 36.4 C L 78 20 103/73 100 Room Air 02/03/24 00:00 36.7 C 82 20 105/77 98 Room Air Laboratory Results Reviewed CBC Reviewed CMP PG Care Time/CCT Total # of Minutes Spent Total Time Spent with Patient: Total time spent is greater than 50% in coordination of care (as documented) at patient's floor/unit and/or counseling patient: Coding Level of Care Code 34384 SUB INP/OBS CARE 3/50MIN Diagnoses Malignant ascites R18.0 Mycobacterium avium complex A31.0 HIV (human immunodeficiency virus infection) Z21 HIV symptom status: unspecified Anemia D64.9 Hypotension I95.9 (3) HIV (human immunodeficiency virus infection) HIV symptom status: unspecified Qualified Code(s): Z21 - Asymptomatic human immunodeficiency virus [HIV] infection status
--- NOTE | 2024-02-03 16:13 | Discharge Summary ---
Discharge Summary Date of Service February 04, 2024 Principal Dx & Hospital Course #1 = Principal Diagnosis (1) Malignant ascites: Presented with large volume ascites. Patient noticed fluid in the abdomen which has progressively worsened over posterior, however in the last month the fluid has increased and is not going away. - CT A/P on admission revealed severe extrinsic compression of main portal vein due to ill-defined 3.7 cm soft tissue mass. > Multifocal ill-defined retroperitoneal and mesenteric soft tissue suspicious for tumor, likely neoplastic. > Associated tubular hypodensities within the mesentery could reflect dilated lymphatics or necrotic nodes. > Overall, the findings are most consistent with a neoplastic process. An atypical infectious process is within the differential but considered much less likely. - Paracentesis on 02/01/2024 with approximately 5 L of milky fluid removed. 37.5 g 25% albumin given after. > Serum albumin 2.4, albumin concentration of ascitic fluid <1.5 --> portal hypertension is not necessarily the cause of ascites with SAAG < 1.1 g/dL. > AFB culture/smear ordered - pending. - Lactate dehydrogenase WNL at 125 on 02/02, lowers suspicion for lymphoma/malignancy. - Patient required a tertiary center for advanced management of his complex condition. - High risk for thrombosis development, continue lovenox SQ daily while hospitalized. Patient transferred to [facility] 02/04/24. 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 Generally not compliant with ethambutol. > Per review of discharge note from 11/10/23, patient was discharged on ethambutol 850 mg x 30 days. > Patient noncompliant with MAC treatment at the shelter due to having to walk up and down to the [facility] to get his ethambutol which is difficult with his muscle wasting and deconditioning. He does take Biktarvy/Bactrim as directed. Continue azithromycin 500 mg daily Continue Bactrim DS 1 tab daily Continue Ethambutol. Confirmed w/ SCI patient takes 850 mg by mouth daily. (3) HIV (human immunodeficiency virus infection): History of HIV History of HIV on Biktarvy. CD4 count October 2023 was 53. > Pending records of bone marrow biopsy from [facility], per pt had diffuse infiltration of MAC into marrow. Low CD4 count however undetectable viral load at last check indicative of proper ART compliance and was continued on Biktarvy/Bactrim after ID consultation 12/06/2023 Continue Biktarvy and ppx bactrim WBC 12.02, lymphocyte count 1.49 on admission. (4) Anemia: History of anemia Hemoglobin on admission 9.7, MCV 80 low, iron infusions were not indicated > Hgb 8.1 on 02/01 --monitor closely. > Hgb 8.7 on 02/02. Hemodynamically stable. No indication for blood transfusion at this time. - ? Anemia of chronic disease vs bone marrow failure due to MAC infiltration Patient w/o hx of bleeding, low suspicion for hemolysis on prior workup, was pending evaluation for aplastic anemia however overall disease was consistent with anemia of chronic disease. Ferritin was not low, iron infusions were not indicated. - High risk of thrombosis. Continue Lovenox. (5) Hypotension: Continue midodrine 5 mg twice daily hold for SBP greater than 100 Remained hypotensive with stable MAP. Asymptomatic with hypotension. Plan VTE PPx: Lovenox CODE STATUS: Full code Notes For Next Care Provider Patient transferred to [facility] 02/04/24. Admission HPI Per Admitting Provider Margarito is a 43-year-old male inmate with a past medical history of HIV, disseminated MAC with intermittent medication compliance, recent hospital admission and discharged 11/2023 for sepsis ultimately suspected to be viral due to both rhino/enterovirus and parainfluenza but he was also treated for anaplasmosis due to a single inclusion in the neutrophil on peripheral smear review. Presents to the ER with large volume ascites, mesenteric lymphadenopathy, main portal vein compression due to 3.7cm mass, narrowing of mesenteric veins. Necrotic lymph nodes. Fat/fluid suspicious for chylous ascites/lymphatic ascites, carcinomatosis. Started noticing fluid in the abdomen which has progressively worsened over this year. Had a little bit with pain int he last few months, but seemed to be intermittent. However in the last month fluid has increased and is not going away. Also had RIGHT abdominal pain. Hurts to lay on the right side and has a sharp pain into the right side when he lays on it. No fever, no chills. Gets cold sometimes which he attributes to anemia. Did have a bone marrow biopsy in [place] [facility] which was done a few months ago, was told he had a lot of MAC in the bone but doesnt know further details. No dyspnea, no shortness of breath but fatigued easily. No cough. No leg swelling. Sometimes has ankle swelling intermittently but resolves with elating legs. Denies headache, vision change. FHx: No family history of cancer to his knowledge in his father. Stage 4 lung cancer in his mother. MGF with throat cancer. Mother and MGF both smokers. Still taking Biktavry/Bactrim Ethambutol, azithromycin, rifampin. Reports he has been compliant with meds as prescribed since last discharge Confirmed med list with shelter Medical History: Reviewed Medications: Reviewed Surgical History: Reviewed Family history: Reviewed Allergies: Reviewed Social History: Reviewed Code Status: Full Admission Exam Per Admitting Provider General: A&Ox3. NAD. Cooperative. Appears cachectic HEENT: Atraumatic, normocephalic. PERLAA Pulm: Diminished, bibasilar crackles, -rales, -rhonchi. Symmetrical chest rise. No increased work of breathing. No respiratory distress. Cardiac: RRR, -mrg. Radial pulses intact and symmetrical. Abdominal: Distended with fluid wave. Trace RUE TTP. No rebound. No guarding. Ext: warm, dry. Thin. No edema. Discharge Exam General: No acute distress, nondiaphoretic, cachectic appearing with bitemporal wasting. Skin: The skin was without rashes, erythema, edema, or bruising. Cardiac: Regular rate and rhythm without murmurs gallops or rubs. Pulm: Clear to auscultation bilaterally without wheezes, rales or rhonchi. No respiratory distress. 99% on room air. Abdominal: Soft, distended with minor fluid wave. Nontender, no rebound, no guarding. Neuro: A&O x3. No focal neurological deficits. Updated Medication List Medication Instructions Recorded Confirmed Type A&D Ointment 1 applic topical DAILY 02/01/24 02/01/24 History Biktarvy 1 tab PO DAILY 02/01/24 02/01/24 History Lactobacillus acidophilus 0 mg PO BID 02/01/24 02/01/24 History (Acidophilus capsule) Robitussin Max Stren 100/5ml 15 ml PO QID PRN .cough 02/01/24 02/01/24 History Vitamin E Lotion 1 applic topical TID 02/01/24 02/01/24 History acetaminophen 325 mg tablet 650 mg PO QID PRN Pain 02/01/24 02/01/24 History (Tylenol) azithromycin 500 mg tablet 500 mg PO DAILY 02/01/24 02/01/24 History brimonidine 0.15 % eye drops 1 drp OPL BID 02/01/24 02/01/24 History cholecalciferol (vitamin D3) 25 25 mcg PO DAILY 02/01/24 02/01/24 History mcg (1,000 unit) tablet (Vitamin D3) cholestyramine (with sugar) 4 gram 4 g PO BID 02/01/24 02/01/24 History powder for susp in a packet (Questran) cyanocobalamin (vitamin B-12) 1,000 mcg IM .[id number] 02/01/24 02/01/24 History 1,000 mcg/mL injection solution dicyclomine 10 mg capsule 10 mg PO BID PRN Pain 02/01/24 02/01/24 History difluprednate 0.05 % eye drops 1 drp OPL .[id number] 02/01/24 02/01/24 History difluprednate 0.05 % eye drops 1 drp OPR BID 02/01/24 02/01/24 History ergocalciferol (vitamin D2) 1,250 1,250 mcg PO .WEEKLY 02/01/24 02/01/24 History mcg (50,000 unit) capsule (Vitamin D2) ethambutol 100 mg tablet 50 mg PO DAILY 02/01/24 02/01/24 History ethambutol 400 mg tablet 800 mg PO DAILY 02/01/24 02/01/24 History loperamide 2 mg tablet (Imodium 2 mg PO TID PRN Diarrhea 02/01/24 02/01/24 Histo ry A-D) midodrine 5 mg tablet 5 mg PO BID 02/01/24 02/01/24 History multivitamin 1 tab PO DAILY 02/01/24 02/01/24 History spironolactone 25 mg tablet 25 mg PO DIRECTED 02/01/24 02/01/24 History sulfamethoxazole 800 1 tab PO DAILY 02/01/24 02/01/24 History mg-trimethoprim 160 mg tablet (Bactrim DS) umeclidinium 62.5 mcg/actuation 1 inh inhalation DAILY 02/01/24 02/01/24 History blister powder for inhalation (Incruse Ellipta) Hospital Stay Data Diagnostic Imagining Performed Laboratory Results WBC 11.21 K/ul (4.8-10.8) H 02/03/24 06:24 RBC 3.45 M/uL (4.70-6.10) L 02/03/24 06:24 Hgb 8.7 g/dl (14.0-18.0) L 02/03/24 06:24 Hct 27.5 % (42.0-52.0) L 02/03/24 06:24 MCV 79.7 fL (80.0-100.0) L 02/03/24 06:24 MCH 25.2 pg (25.0-34.0) 02/03/24 06:24 MCHC 31.6 g/dL (32.0-36.0) L 02/03/24 06:24 RDW Std Deviation 55.4 fL (36.4-46.3) H 02/03/24 06:24 RDW Coeff of Brody 18.9 % (11.5-14.5) H 02/03/24 06:24 Plt Count 250 K/uL (130-400) 02/03/24 06:24 MPV 8.8 fL (9.4-12.4) L 02/03/24 06:24 Immature Gran % (Auto) 0.7 % 02/03/24 06:24 Neut % (Auto) 79.7 % 02/03/24 06:24 Lymph % (Auto) 10.2 % 02/03/24 06:24 Wilkes % (Auto) 7.0 % 02/03/24 06:24 Eos % (Auto) 1.8 % 02/03/24 06:24 Baso % (Auto) 0.6 % 02/03/24 06:24 Neut # (Auto) 8.93 K/uL (1.40-6.50) H 02/03/24 06:24 Lymph # (Auto) 1.14 K/uL (1.20-3.40) L 02/03/24 06:24 Wilkes # (Auto) 0.79 K/uL (0.11-0.59) H 02/03/24 06:24 Eos # (Auto) 0.20 K/uL (0.00-0.50) 02/03/24 06:24 Baso # (Auto) 0.07 K/uL (0.00-0.20) 02/03/24 06:24 Immature Gran # (Auto) 0.08 K/uL (0.01-0.20) 02/03/24 06:24 Polychromasia 1+ 02/01/24 10:08 Hypochromasia Present 02/01/24 10:08 Tear Drop Cells 1+ 02/01/24 10:08 Ovalocytes 1+ 02/01/24 10:08 PT 11.4 Seconds (9.0-12.0) 02/01/24 10:25 INR 1.1 (0.9-1.1) 02/01/24 10:25 Sodium 135 mmol/L (136-145) L 02/03/24 06:24 Potassium 4.4 mmol/L (3.5-5.1) 02/03/24 06:24 Chloride 107 mmol/L (98-107) 02/03/24 06:24 Carbon Dioxide 26 mmol/L (21-32) 02/03/24 06:24 Anion Gap 2 (3-11) L 02/03/24 06:24 BUN 16 mg/dl (6-23) 02/03/24 06:24 Creatinine 1.00 mg/dl (0.6-1.4) 02/03/24 06:24 Est Cr Clr Drug Dosing 76.7 ml/min 02/03/24 06:24 Est GFR ( Amer) 107.9 ml/min 02/03/24 06:24 Est GFR (Non-Af Amer) 93.1 ml/min 02/03/24 06:24 BUN/Creatinine Ratio 16.0 (10-20) 02/03/24 06:24 Glucose 94 mg/dl (70-99(Fasting)) 02/03/24 06:24 Calcium 7.7 mg/dl (8.6-10.3) L 02/03/24 06:24 Total Bilirubin 0.3 mg/dl (0.2-1.0) 02/03/24 06:24 Direct Bilirubin 0.1 mg/dl (0-0.2) 02/03/24 06:24 AST 64 U/L (13-39) H 02/03/24 06:24 ALT 44 U/L (7-52) 02/03/24 06:24 Alkaline Phosphatase 224 U/L (34-104) H 02/03/24 06:24 Lactate Dehydrogenase 125 U/L (86-244) 02/03/24 06:24 Total Protein 6.1 gm/dl (6.0-8.3) 02/03/24 06:24 Albumin 2.5 gm/dl (3.4-5.0) L 02/03/24 06:24 Globulin 4.6 gm/dl (2.5-4.0) H 02/01/24 10:00 Albumin/Globulin Ratio 0.5 (0.9-2) L 02/01/24 10:00 Fluid Neutrophils % 18 % 02/01/24 17:50 Fluid Lymphocytes % 68 % 02/01/24 17:50 Fluid Eosinophils % 0 % 02/01/24 17:50 Fluid Basophils % 0 % 02/01/24 17:50 Fluid Meso/Macro/Wilkes % 14 % 02/01/24 17:50 Fluid Comment 02/01/24 17:50 Peritoneal Color Pale Yellow 02/01/24 17:50 Peritoneal Appearance Turbid 02/01/24 17:50 Peritoneal WBC (Auto) 96 /ul (0-300) 02/01/24 17:50 Peritoneal RBC (Auto) < 2000 /uL 02/01/24 17:50 Peritoneal Tot Protein < 3.0 gm/dl 02/01/24 17:50 Peritoneal Albumin < 1.5 gm/dl 02/01/24 17:50 Impressions Chest X-Ray 02/01/24 00:00 TEMPORARY Margarito Arias CLINICAL HISTORY: Abdominal pain TECHNIQUE: Single frontal radiograph of the chest was obtained. Comparison: None available at the time of this dictation. FINDINGS: No lines and tubes are seen. The cardiomediastinal silhouette is normal. Lungs are underinflated but clear. No evidence of pleural effusion or pneumothorax. IMPRESSION: No acute chest disease. ACT 112: Negative or not required by law. Electronically signed by: Karl Gillespie M.D. 02/01/2024 11:24 AM Abdomen/Pelvis CT 02/01/24 15:[address] OF THE ABDOMEN AND PELVIS WITH CONTRAST CLINICAL HISTORY: Abdominal pain, diarrhea and bloating. COMPARISON STUDY: CT of the abdomen and pelvis December 04, 2023. TECHNIQUE: Axial images of the abdomen and pelvis were obtained following intravenous injection of 93 cc of Optiray 320 IV. Sagittal and coronal reconstructions were viewed. Automated exposure control was utilized for the study. A dose lowering technique was utilized adhering to the principles of ALARA. FINDINGS: Emphysema is noted within the lower lungs. Right middle lobe and lingular opacities were shown on prior exams. There is a small left pleural effusion. Right pleural calcified densities are noted. A 2.7 cm partially calcified pleural density within the right lower hemithorax on image 41 of 421 is new since prior exam. There are no hepatic lesions. There is mild intrahepatic biliary ductal dilatation. Mild splenomegaly is noted. The adrenal glands, kidneys and pancreas are normal. There is severe narrowing of the portal vein, shown on image 123 of 421. Adjacent soft tissue measures 3.7 cm. There is also ill-defined mesenteric and retroperitoneal soft tissue suspicious for tumor. Tubular appearing low density foci within the mesentery could reflect dilated lymphatics or necrotic lymph nodes. Mesenteric soft tissue results in severe narrowing of the mesenteric veins. Large volume ascites is noted. Fat fluid level within the ascites is noted. The findings suggest callous ascites. There is mild peritoneal thickening. There is no evidence for a bowel obstruction. Small bowel wall thickening is again noted. No suspicious osseous lesions are identified. There is anasarca. IMPRESSION: 1. Severe extrinsic compression of the main portal vein due to an ill-defined 3.7 cm soft tissue mass. In addition, multifocal ill-defined retroperitoneal and mesenteric soft tissue which results in multifocal narrowing of the mesenteric veins, likely neoplastic. The findings could reflect metastatic disease. Lymphoma is also within the differential. Associated tubular hypodensities within the mesentery could reflect a dilated lymphatics or necrotic nodes. Overall, the findings are most consistent with a neoplastic process. An atypical infectious process is within the differential but considered much less likely. 2. Large volume ascites. 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 Mild peritoneal thickening which raises the possibility of peritoneal carcinomatosis. 3. Redemonstration of nonspecific small bowel wall thickening. No evidence for a bowel obstruction. No pneumatosis, free air or portal venous gas. 4. Small left pleural effusion. 5. Indeterminate right basilar pleural calcifications. 6. Anasarca. ACT 112: Negative or not required by law. Electronically signed by: Efrain Stevens M.D. 02/01/2024 12:38 PM Pending Results Patient Have Any Pending Studies at Discharge: Yes Discharge Instructions Given to Patient (Per Discharging Provider) FOR JAIME: Ascites Patient presented with large volume ascites. Patient noticed fluid in the abdomen which has progressively worsened over posterior, however in the last month the fluid has increased and is not going away. - CT A/P on admission revealed severe extrinsic compression of main portal vein due to ill-defined 3.7 cm soft tissue mass. * Multifocal ill-defined retroperitoneal and mesenteric soft tissue suspicious for tumor, likely neoplastic. * Associated tubular hypodensities within the mesentery could reflect dilated lymphatics or necrotic nodes. * Overall, the findings are most consistent with a neoplastic process. An atypical infectious process is within the differential but considered much less likely. - Paracentesis on 02/01/2024 with approximately 5 L of milky fluid removed. 37.5 g 25% albumin given after. * Serum albumin 2.4, albumin concentration of ascitic fluid <1.5 --> portal hypertension is not necessarily the cause of ascites with SAAG < 1.1 g/dL. * AFB culture/smear ordered - pending. - Lactate dehydrogenase WNL at 125 on 02/02, lowers suspicion for lymphom a/malignancy. Disseminated Mycobacterium Avium Complex On rifampin/azithromycin. Generally not compliant with ethambutol. * Per review of discharge note from 11/10/23, patient was discharged on ethambutol 850 mg x 30 days. * Patient noncompliant with MAC treatment at the shelter due to having to walk up and down to the [facility] to get his ethambutol which is difficult with his muscle wasting and deconditioning. He does take Biktarvy/Bactrim as directed. Continue azithromycin 500 mg daily Continue Bactrim DS 1 tab daily Continue Ethambutol. Confirmed w/ SCI patient takes 850 mg by mouth daily. HIV History of HIV on Biktarvy. CD4 count October 2023 was 53. * Pending records of bone marrow biopsy from [facility], per pt had diffuse in filtration of MAC into marrow. Low CD4 count however undetectable viral load at last check indicative of proper ART compliance and was continued on Biktarvy/Bactrim after ID consultation 12/06/2023 Continue Biktarvy and ppx bactrim WBC 12.02, lymphocyte count 1.49 on admission. Anemia Hemoglobin on admission 9.7, MCV 80 low, iron infusions were not indicated * Hgb 8.1 on 02/01 --monitor closely. * Hgb 8.7 on 02/02. Hemodynamically stable. No indication for blood transfusion at this time. - ? Anemia of chronic disease vs bone marrow failure due to MAC infiltration Patient w/o hx of bleeding, low suspicion for hemolysis on prior workup, was pending evaluation for aplastic anemia however overall disease was consistent with anemia of chronic disease. Ferritin was not low, iron infusions were not indicated. - High risk of thrombosis. Continue Lovenox. Hypotension Continue midodrine 5 mg twice daily hold for SBP greater than 100 Remains hypotensive with stable MAP. Asymptomatic with hypotension. Total Time Total Time Spent Total Time Spent (In Minutes): Greater than 30 minutes spent completing this discharge process including direct patient care, medication reconciliation, documentation, review of labs and images, and coordination of care. Coding Level of Care Code 43316 INP/OBS DISCH >30 MIN Diagnoses Malignant ascites R18.0 Mycobacterium avium complex A31.0 HIV (human immunodeficiency virus infection) Z21 HIV symptom status: unspecified Anemia D64.9 Hypotension I95.9
[2024-02-04 06:48] LABS: Basophils # (auto) 0.07 K/uL (0.00-0.20); Basophils % (auto) 0.7 %; Eosinophils # (auto) 0.12 K/uL (0.00-0.50); Eosinophils % (auto) 1.2 %; Hemoglobin 8.2 g/dl (14.0-18.0); Immature Granulocytes # (auto) 0.05 K/uL (0.01-0.20); Immature Granulocytes % (auto) 0.5 %; Lymphocytes # (auto) 1.26 K/uL (1.20-3.40); Lymphocytes % (auto) 12.6 %; Mean Corpuscular Hemoglobin 25.5 pg (25.0-34.0); Mean Corpuscular Hgb Conc 31.5 g/dL (32.0-36.0); Mean Corpuscular Volume 80.7 fL (80.0-100.0); Mean Platelet Volume 9.5 fL (9.4-12.4); Monocytes # (auto) 0.69 K/uL (0.11-0.59); Monocytes % (auto) 6.9 %; Neutrophils % (auto) 78.1 %; Platelet Count 258 K/uL (130-400); RDW Coefficient of Variation 18.9 % (11.5-14.5); RDW Standard Deviation 55.2 fL (36.4-46.3); Red Blood Count 3.22 M/uL (4.70-6.10); White Blood Count 9.99 K/ul (4.8-10.8)
[2024-02-04 07:07] LABS: Calcium 7.6 mg/dl (8.6-10.3); Potassium 4.1 mmol/L (3.5-5.1)
[2024-02-04 07:13] LABS: BUN Creatinine Ratio 15.3 (10-20); Creatinine Clr Calc Pharmacy 71.8 ml/min; Est GFR (African American) 95.1 ml/min
[2024-02-05] MEDS ORDERED: CYANOCOBALAMIN 1000 MCG/ML VIAL IM SCH (09:00)
== END 2024-02-04 10:15 | disposition short-term general hospital (02) | DRG 375 ==
LOC: 2W 09:09 → ED 09:09 → SUATTDRO 15:24 → 2W 18:33
DX: I87.1 Compression of vein; C80.1 Malignant (primary) neoplasm, unspecified; Z91.148 Patient's other noncompliance with medication regimen for other reason; C78.6 Secondary malignant neoplasm of retroperitoneum and peritoneum; R18.0 Malignant ascites; J90 Pleural effusion, not elsewhere classified; B20 Human immunodeficiency virus [HIV] disease; I95.9 Hypotension, unspecified; D63.8 Anemia in other chronic diseases classified elsewhere; A31.2 Disseminated mycobacterium avium-intracellulare complex (DMAC)

== ENCOUNTER 2024-04-26 22:18 | Inpatient (IN) ==
--- OUTSIDE RECORDS SUMMARY | 2024-04-26 22:22 | External Medical Summary | Continuity of Care Document ---
Author Name Unknown Organization [facility] [address] [place] [id number] Encounter PS FINNBR [id number] Date(s): 04/17/24 - 04/17/24 [facility] [address] [facility] [address], [address], [address] [place] [id number] [phone] Encounter Diagnosis Blurry vision(Discharge Diagnosis) - 04/17/24 Discharge Disposition: Home or Self Care Attending Physician: MD Humphries Amanda L Allergies, Adverse Reactions, Alerts No Known Allergies Medications azithromycin Start: 02/04/24 3:32:00 PM EDT, 500 mg =, PO, Daily Start Date: 02/04/24 Status: Ordered Bactrim Start: 03/04/24 7:21:00 PM EDT, 80 mg =, PO, Daily Start Date: 03/04/24 Status: Ordered brimonidine 0.15% ophthalmic solution Start: 03/04/24 7:19:00 PM EDT, 1 drop, both eyes, bid Start Date: 03/04/24 Status: Ordered cholestyramine Start: 03/04/24 7:19:00 PM EDT, 4 g =, PO, bid Start Date: 03/04/24 Status: Ordered dolutegravir 50 mg oral tablet Start: 03/04/24 7:19:00 PM EDT, 1 tab, PO, bid Start Date: 03/04/24 Status: Ordered emtricitabine 200 mg oral capsule Start: 03/04/24 7:19:00 PM EDT, 1 cap, PO, Daily Start Date: 03/04/24 Status: Ordered enoxaparin Start: 03/04/24 7:19:00 PM EDT, 40 mg =, subQ, q24h Start Date: 03/04/24 Status: Ordered ethambutol Start: 03/04/24 7:19:00 PM EDT, 900 mg =, PO, Daily Start Date: 03/04/24 Status: Ordered fluconazole 200 mg oral tablet Start: 03/04/24 7:19:00 PM EDT, 2 tab, PO, Daily Start Date: 03/04/24 Status: Ordered levoFLOXacin 500 mg oral tablet Start: 03/04/24 7:19:00 PM EDT, 1 tab, PO, q24h Start Date: 03/04/24 Status: Ordered midodrine 5 mg oral tablet Start: 03/04/24 7:19:00 PM EDT, 1 tab, PO, bid Start Date: 03/04/24 Status: Ordered Protonix 40 mg oral delayed release tablet Start: 03/04/24 7:19:00 PM EDT, 1 tab, PO, Before breakfast Start Date: 03/04/24 Status: Ordered pyridoxine Start: 03/04/24 7:19:00 PM EDT, 50 mg =, PO, Daily Start Date: 03/04/24 Status: Ordered rifabutin 150 mg oral capsule Start: 03/04/24 7:19:00 PM EDT, 2 cap, PO, Daily Start Date: 03/04/24 Status: Ordered tenofovir disoproxil fumarate 300 mg oral tablet Start: 03/04/24 7:19:00 PM EDT, 1 tab, PO, Daily Start Date: 03/04/24 Status: Ordered Tylenol 325 mg oral tablet Start: 03/04/24 7:20:00 PM EDT, 2 tab, PO, q6h, PRN: pain - moderate (4-6) Start Date: 03/04/24 Status: Ordered Vitamin D3 25 mcg (1000 intl units) oral tablet Start: 03/04/24 7:19:00 PM EDT, 1 tab, PO, Daily Start Date: 03/04/24 Status: Ordered Problem List Condition Confirmation Course Effective Dates Status Health St [facility]us Informant Disseminated MAC infection by bone marrow aspirate Confirmed Active HIV infection Confirmed Active Diagnosis Diagnosis Type Effective Dates Health Status Cl inical Service Informant Blurry vision Discharge Diagnosis 04/17/24 Non-Specified Social History Social History Type Response Smoking Status Never smoked cigaret isaac Sex Male Sex Representation Male (finding) Patient Care team information Care Team Personnel Name: MD SouleymaneAneesh Position: Resident Member Role: Lifetime Relationship Address: [address] [place] [phone] [place] Name: MD Walker, Adolfo Mike Position: Resident Member Role: Lifetime Relationship Address: [address] [place] [id number] [place] Name: Alfredo Miller Kyle Position: Pharmacist Member Role: Pharmacy - Lifetime Address: [address] [place] [id number] [place] Name: MD Zamudio Matthew Position: Resident Member Role: Lifetime Relationship Address: [address] [place] [phone] [place] Care Team Related Persons Name: [facility]
--- NOTE | 2024-04-26 22:30 | Emergency Department Note ---
Impression & Plan Acute on chronic respiratory failure with hypoxia, Mycobacterium avium complex, Sepsis ED Provider Note NAME: HAZEL [id number] FLUSHAMAR AGE: 43 SEX: M : 1980 ARRIVES VIA: Ambulance INFORMANT: Patient, EMS report ED PROVIDER(S): Fede Augustin MD CHIEF COMPLAINT: Shortness of breath, hypoxia MEDICAL DECISION MAKING: Patient presents due to concern for shortness of breath with a known history of HIV/AIDS with hypoxemia. IV was established and blood work was obtained along with sepsis protocols. Initially given 500 of IV fluid given the IV fluid shortage. Patient is hypotensive the patient was discharged from the hospital with similar blood pressures at that time and has run low in the past. Patient was treated with empiric Zosyn BioFire and MRSA swab were also obtained. Blood work shows a white count of 8 with a normal H&H. Platelet count is unremarkable. The patient's kidney function is unremarkable. VBG pH 7.29 with a VBG pCO2 that is normal. Bicarb normal. Calcium was low at 8. The patient was ordered a gram for replacement. Procalcitonin 1.7 troponin is borderline elevated 25.8. Given the patient's hypoxemia and BiPAP requirements I did speak the on-call hospital service Dr. Brady and the patient was admitted to the medicine service. Critical Care: I have personally spent 45 minutes of critical care time in direct management of this patient. This includes bedside care, interpretation of diagnostic studies, and testing, discussion with consultants, patient, and family members, and other require inpatient management activities. This 45 minutes is in excess of all separately billable procedures. Discussion w/ other healthcare providers: Dr. Brady inpatient medicine service Prior /Outside records reviewed: None Differential diagnosis: Reactive airway disease, pneumonia, pneumothorax, COPD, CHF, ACS, pulmonary embolism, musculoskeletal, GERD as well as other pathologies were considered. Diagnostics, as interpreted by me: ECG: Normal sinus rhythm, rate of 78, normal intervals, normal axis no STEMI. Cardiac monitoring: An order was placed for continuous cardiac monitoring. The monitor shows a rate of 82 with sinus rhythm. Patient was placed on pulse oximetry Medical decision rules: None Imaging studies: I informally interpreted the patient's chest x-ray with questionable interstitial changes in the right lung vuong no obvious consolidative pneumonia or pneumothorax with formal report to follow. HPI: Patient presents from [facility] where the patient has been for the last year or so. The patient reportedly complained of shortness of breath had vitals checked and noticed his O2 saturations were in the 60s. When EMS arrived patient was already on 10 L and was still in the 70s. The patient was started on CPAP which brought him up in the low 90s. Patient states that he did have a brief bout of chest pain but this is since resolved. The patient does feel improved since being on the BiPAP. No reported falls or trauma. The patient has had cough which has been nonproductive. The patient does have a port in place for antibiotic administration. No reported vomiting or diarrhea. The patient does have a drain to the abdomen noted and did have this drained earlier today per EMS. PAST MEDICAL HISTORY: See Below PAST SURGICAL HISTORY: See Below SOCIAL HISTORY: See Below HOME MEDICATIONS: See Below ALLERGIES: See Below VITALS: See Below PHYSICAL EXAMINATION: GENERAL: Frail and cachectic in appearance but in no apparent distress while CPAP mask in place. EYE EXAM: Normal conjunctiva. PERRL, no anisocoria and EOM's grossly intact w/o pain. OROPHARYNX: Moist mucus membranes, grossly normal dentition. NECK: Trachea midline, no stridor. Supple, no nuchal rigidity, no adenopathy, non-tender. No signs of meningismus. FROM of the neck with good chin to chest and neck extension. LUNGS: Clear to auscultation. Normal chest wall mechanics. Chest: Port noted in the right chest. HEART: NSR, no MRG. ABDOMEN: Abdomen soft, drain noted in the right lower abdomen, non-tender, no masses, no rebound or guarding. BACK: No CVA TTP. SKIN: No rashes and no bruising. UPPER EXTREMITIES: Upper extremities are grossly normal. LOWER EXTREMITIES: Grossly normal, no edema. Negative Homans' sign bilaterally. NEURO EXAM: A&O x3, cranial nerves II-XII grossly intact, normal speech, moves all 4 extremities. Past Med/Surg History Problem List (Updated 04/27/24 @ 18:29 by Fede Augustin MD) Bronchiectasis Multifocal pneumonia Acute on chronic respiratory failure with hypoxia (Acute) Severe protein-calorie malnutrition Intraabdominal mass (Acute) Malignant ascites (Acute) Anaplasmosis Cachexia associated with AIDS Enterovirus infection (Acute) Infection due to parainfluenza virus 3 (Acute) Anemia (Acute) Hypotension (Acute) Emphysema lung Mycobacterium avium complex (Acute) Enteritis Abdominal pain (Acute) Anemia (Acute) Acute hyponatremia (Acute) Skin lesion of chest wall Dyspnea Irritable bowel syndrome Vision loss of left eye Abnormal computerized tomography of biliary tract LVH (left ventricular hypertrophy) Abnormal CT scan, chest Sepsis (Acute) Cough (Acute) Anemia (Acute) Hypotension (Acute) HIV (human immunodeficiency virus infection) (Acute) Medical History Diarrhea Hyperlipemia Iron deficiency anemia Vitamin D deficiency Social History Smoking Status: Unknown if ever smoked Second Hand Exposure: No; Do You Dip or Chew Tobacco: No; Hx Alcohol Use: No Hx Substance Use: No Preferred Language: Slovak Communication Ability: Effective Defensive Fire Control Systems Operator Required: No Beliefs That Will Affect Care: None Current Living Situation: Other Current Living Situation Comment: [facility] Feels Safe at Home: Yes Assistive Devices: Walker Allergies Allergies Allergy/AdvReac Type Severity Reaction Status Date / Time No Known Allergies Allergy Verified 04/03/24 11:16 Home Meds Home Medications Medication Instructions Recorded Confirmed A&D Ointment 1 applic topical DAILY 02/01/24 04/27/24 Lactobacillus acidophilus 0 mg PO BID 02/01/24 04/27/24 (Acidophilus capsule) Robitussin Max Stren 100/5ml 15 ml PO QID PRN .cough 02/01/24 04/27/24 Vitamin E Lotion 1 applic topical TID 02/01/24 04/27/24 acetaminophen 325 mg tablet 650 mg PO QID PRN Pain 02/01/24 04/27/24 (Tylenol) brimonidine 0.15 % eye drops 1 drp OPL BID 02/01/24 04/27/24 cholecalciferol (vitamin D3) 25 25 mcg PO DAILY 02/01/24 04/27/24 mcg (1,000 unit) tablet (Vitamin D3) cholestyramine (with sugar) 4 gram 4 g PO BID 02/01/24 04/27/24 powder for susp in a packet (Questran) difluprednate 0.05 % eye drops 1 drp OPL .[id number] 02/01/24 04/27/24 difluprednate 0.05 % eye drops 1 drp OPR BID 02/01/24 04/27/24 ergocalciferol (vitamin D2) 1,250 1,250 mcg PO .WEEKLY 02/01/24 04/27/24 mcg (50,000 unit) capsule (Vitamin D2) ethambutol 100 mg tablet 50 mg PO DAILY 02/01/24 04/27/24 ethambutol 400 mg tablet 800 mg PO DAILY 02/01/24 04/27/24 loperamide 2 mg tablet (Imodium 2 mg PO TID PRN Diarrhea 02/01/24 04/27/24 A-D) midodrine 5 mg tablet 5 mg PO BID 02/01/24 04/27/24 multivitamin 1 tab PO DAILY 02/01/24 04/27/24 sulfamethoxazole 800 1 tab PO DAILY 02/01/24 04/27/24 mg-trimethoprim 160 mg tablet (Bactrim DS) umeclidinium 62.5 mcg/actuation 1 inh inhalation DAILY 02/01/24 04/27/24 blister powder for inhalation (Incruse Ellipta) amikacin 250 mg/mL injection 1,200 mg IV 3XWK 04/27/24 04/27/24 solution dolutegravir 50 mg tablet (Tivicay) 50 mg PO BID 04/27/24 04/27/24 emtricitabine 200 mg-tenofovir 1 tab PO BID 04/27/24 04/27/24 disoproxil fumarate 300 mg tablet (Truvada) enoxaparin 30 mg/0.3 mL 30 mg subcut 1XD 04/27/24 04/27/24 subcutaneous solution folic acid 1 mg tablet 1 mg PO DAILY 04/27/24 04/27/24 pantoprazole 40 mg tablet,delayed 40 mg PO DAILY 04/27/24 04/27/24 release pyridoxine (vitamin B6) 50 mg 50 mg PO DAILY 04/27/24 04/27/24 tablet rifabutin 150 mg capsule 300 mg PO DAILY 04/27/24 04/27/24 tedizolid 200 mg tablet (Sivextro) 200 mg PO DAILY 04/27/24 04/27/24 Results & Data (ED) Vital Signs Vital Signs - 24 hr 04/26/24 22:24 04/26/24 22:24 04/26/24 22:24 Temperature 35.6 C L Temperature Source Oral Pulse Rate 91 H Pulse Rate [Apical] Pulse Rhythm [Apical] Pulse Strength [Apical] Respiratory Rate 17 Respiratory Effort / Characteristics Respiratory Depth Respiratory Pattern Blood Pressure 90/77 L Blood Pressure [Right Arm] Blood Pressure Mean 81 Blood Pressure Mean [Right Arm] Blood Pressure Position [Right Arm] Pulse Oximetry 98 Oxygen Delivery Method BiPAP BiPAP BiPAP Fraction of Inspired Oxygen SaO2/FiO2 Ratio Sepsis Recent Fever Within 48 Hours No Sepsis New/Unexplained Change in Mental Status Yes Sepsis Action Taken by Nursing Physician Notified 04/26/24 22:36 04/26/24 23:15 04/26/24 23:30 Temperature Temperature Source Pulse Rate 76 Pulse Rate [Apical] 65 63 Pulse Rhythm [Apical] Regular Regular Pulse Strength [Apical] Normal Normal Respiratory Rate 16 16 Respiratory Effort / Characteristics Non-Labored Spontaneous Non-Labored Spontaneous Respiratory Depth Normal Normal Respiratory Pattern Regular Regular Blood Pressure Blood Pressure [Right Arm] 94/68 L 94/70 L Blood Pressure Mean Blood Pressure Mean [Right Arm] 76 78 Blood Pressure Position [Right Arm] Lying Lying Pulse Oximetry 100 100 Oxygen Delivery Method BiPAP BiPAP Fraction of Inspired Oxygen SaO2/FiO2 Ratio Sepsis Recent Fever Within 48 Hours Sepsis New/Unexplained Change in Mental Status Sepsis Action Taken by Nursing 04/26/24 23:36 04/26/24 23:45 04/27/24 00:00 Temperature Temperature Source Pulse Rate 77 Pulse Rate [Apical] 57 L 57 L Pulse Rhythm [Apical] Regular Regular Pulse Strength [Apical] Normal Normal Respiratory Rate 14 16 14 Respiratory Effort / Characteristics Non-Labored Spontaneous Non-Labored Spontaneous Non-Labored Spontaneous Respiratory Depth Normal Normal Normal Respiratory Pattern Regular Regular Regular Blood Pressure Blood Pressure [Right Arm] 86/66 L 78/56 L Blood Pressure Mean Blood Pressure Mean [Right Arm] 72 63 Blood Pressure Position [Right Arm] Lying Lying Pulse Oximetry 99 100 100 Oxygen Delivery Method BiPAP CPAP Fraction of Inspired Oxygen 50 50 50 SaO2/FiO2 Ratio 200 200 Sepsis Recent Fever Within 48 Hours Sepsis New/Unexplained Change in Mental Status Sepsis Action Taken by Nursing 04/27/24 00:15 04/27/24 00:30 04/27/24 00:45 Temperature Temperature Source Pulse Rate Pulse Rate [Apical] 58 L 59 L 62 Pulse Rhythm [Apical] Regular Regular Regular Pulse Strength [Apical] Normal Normal Normal Respiratory Rate 14 16 16 Respiratory Effort / Characteristics Non-Labored Spontaneous Non-Labored Spontaneous Non-Labored Spontaneous Respiratory Depth Normal Normal Normal Respiratory Pattern Regular Regular Regular Blood Pressure Blood Pressure [Right Arm] 90/64 L 101/74 97/73 L Blood Pressure Mean Blood Pressure Mean [Right Arm] 72 83 81 Blood Pressure Position [Right Arm] Lying Lying Lying Pulse Oximetry 100 100 100 Oxygen Delivery Method BiPAP BiPAP BiPAP Fraction of Inspired Oxygen SaO2/FiO2 Ratio Sepsis Recent Fever Within 48 Hours Sepsis New/Unexplained Change in Mental Status Sepsis Action Taken by [facility] Medications Current Medication List: was personally reviewed by me Laboratory Data Attestation: I reviewed the patient's lab results. 04/27/24 06:19 04/27/24 06:19 Lab Results 04/26/24 04/26/24 04/26/24 Range/Units 22:35 22:43 22:58 WBC 8.79 (4.8-10.8) K/ul RBC 5.80 (4.70-6.10) M/uL Hgb 15.5 (14.0-18.0) g/dl POC Hgb 17.7 (14.0-18.0) g/dl Hct 48.0 (42.0-52.0) % POC Hct 52 (42-52) % MCV 82.8 (80.0-100.0) fL MCH 26.7 (25.0-34.0) pg MCHC 32.3 (32.0-36.0) g/dL RDW Std Deviation 52.8 H (36.4-46.3) fL RDW Coeff of Brody 19.1 H (11.5-14.5) % Plt Count 169 (130-400) K/uL MPV 9.1 L (9.4-12.4) fL Immature Gran % (Auto) 0.7 % Neut % (Auto) 86.1 % Lymph % (Auto) 9.2 % [place] % (Auto) 3.3 % Eos % (Auto) 0.5 % Baso % (Auto) 0.2 % Neut # (Auto) 7.57 H (1.40-6.50) K/uL Lymph # (Auto) 0.81 L (1.20-3.40) K/uL [place] # (Auto) 0.29 (0.11-0.59) K/uL Eos # (Auto) 0.04 (0.00-0.50) K/uL Baso # (Auto) 0.02 (0.00-0.20) K/uL Immature Gran # (Auto) 0.06 (0.01-0.20) K/uL PT 10.5 (9.0-12.0) Seconds INR 1.0 (0.9-1.1) APTT 30 (21-31) Seconds PTT Ratio 1.1 VBG pH 7.29 L (7.36-7.41) VBG pCO2 45 (38-50) mmHg VBG pO2 33 mmHg VBG HCO3 22 mmol/L VBG O2 Saturation < 60.0 % VBG Base Excess -5.0 mEq/L POC Sodium 136 (135-144) mmol/L Sodium 133 L (136-145) mmol/L POC Potassium 4.1 (3.3-5.0) mmol/L Potassium 4.1 (3.5-5.1) mmol/L POC Chloride 108 (101-112) mmol/L Chloride 107 (98-107) mmol/L Carbon Dioxide 21 (21-32) mmol/L POC Total CO2 20 L (24-31) mmol/L Anion Gap 5 (3-11) POC Anion Gap 13.0 L (16-25) mmol/L POC BUN 26 H (7-18) mg/dl BUN 22 (6-23) mg/dl Creatinine 1.67 H (0.6-1.4) mg/dl POC Creatinine 1.7 H (0.6-1.3) mg/dl Est Cr Clr Drug Dosing 42.2 ml/min eGFR 52.41 BUN/Creatinine Ratio 13.2 (10-20) Glucose 79 (70-99(Fasting)) mg/dl POC Glucose (other) 83 (70-99) mg/dl Lactate 1.3 (0.4-2.0) mmol/L Calcium 8.0 L (8.6-10.3) mg/dl POC Ioniz Calcium Cash 1.04 L (1.12-1.32) mmol/l Magnesium 1.9 (1.7-2.4) mg/dl Total Bilirubin 0.2 (0.2-1.0) mg/dl Direct Bilirubin 0.1 (0-0.2) mg/dl AST 41 H (13-39) U/L ALT 33 (7-52) U/L Alkaline Phosphatase 155 H (34-104) U/L Lactate Dehydrogenase (86-244) U/L Troponin I High Sens 25.8 H (0-20) pg/ml Total Protein 6.8 (6.0-8.3) gm/dl Albumin 2.5 L (3.4-5.0) gm/dl Procalcitonin 1.73 H (0-0.5) ng/ml Random Cortisol mcg/dl Nasal Screen MRSA (PCR) Negative (Negative) Adenovirus (PCR) Not Detected (NotDetected) B. pertussis DNA (PCR) Not Detected (NotDetected) B.parapertussis DNA PCR Not Detected (NotDetected) C. pneumoniae DNA (PCR) Not Detected (NotDetected) Coronavirus OC43 (PCR) Not Detected (NotDetected) Coronavirus HKU1 (PCR) Not Detected (NotDetected) Coronavirus 229E (PCR) Not Detected (NotDetected) SARS-CoV-2 (PCR) Not Detected (NotDetected) Coronavirus NL63 (PCR) Not Detected (NotDetected) Human Metapneumovir PCR Not Detected (NotDetected) Influenza Type A (PCR) Not Detected (NotDetected) Influenza Type B (PCR) Not Detected (NotDetected) M. pneumoniae (PCR) Not Detected (NotDetected) Parainfluenza 1 (PCR) Not Detected (NotDetected) Parainfluenza 2 (PCR) Not Detected (NotDetected) Parainfluenza 3 (PCR) Not Detected (NotDetected) Parainfluenza 4 (PCR) Not Detected (NotDetected) RSV (PCR) Not Detected (NotDetected) Entero/Rhino (PCR) Not Detected (NotDetected) 04/27/24 Range/Units 00:28 WBC (4.8-10.8) K/ul RBC (4.70-6.10) M/uL Hgb (14.0-18.0) g/dl POC Hgb (14.0-18.0) g/dl Hct (42.0-52.0) % POC Hct (42-52) % MCV (80.0-100.0) fL MCH (25.0-34.0) pg MCHC (32.0-36.0) g/dL RDW Std Deviation (36.4-46.3) fL RDW Coeff of Brody (11.5-14.5) % Plt Count (130-400) K/uL MPV (9.4-12.4) fL Immature Gran % (Auto) % Neut % (Auto) % Lymph % (Auto) % [place] % (Auto) % Eos % (Auto) % Baso % (Auto) % Neut # (Auto) (1.40-6.50) K/uL Lymph # (Auto) (1.20-3.40) K/uL [place] # (Auto) (0.11-0.59) K/uL Eos # (Auto) (0.00-0.50) K/uL Baso # (Auto) (0.00-0.20) K/uL Immature Gran # (Auto) (0.01-0.20) K/uL PT (9.0-12.0) Seconds INR (0.9-1.1) APTT (21-31) Seconds PTT Ratio VBG pH (7.36-7.41) VBG pCO2 (38-50) mmHg VBG pO2 mmHg VBG HCO3 mmol/L VBG O2 Saturation % VBG Base Excess mEq/L POC Sodium (135-144) mmol/L Sodium (136-145) mmol/L POC Potassium (3.3-5.0) mmol/L Potassium (3.5-5.1) mmol/L POC Chloride (101-112) mmol/L Chloride (98-107) mmol/L Carbon Dioxide (21-32) mmol/L POC Total CO2 (24-31) mmol/L Anion Gap (3-11) POC Anion Gap (16-25) mmol/L POC BUN (7-18) mg/dl BUN (6-23) mg/dl Creatinine (0.6-1.4) mg/dl POC Creatinine (0.6-1.3) mg/dl Est Cr Clr Drug Dosing ml/min eGFR BUN/Creatinine Ratio (10-20) Glucose (70-99(Fasting)) mg/dl POC Glucose (other) (70-99) mg/dl Lactate (0.4-2.0) mmol/L Calcium (8.6-10.3) mg/dl POC Ioniz Calcium Cash (1.12-1.32) mmol/l Magnesium (1.7-2.4) mg/dl Total Bilirubin (0.2-1.0) mg/dl Direct Bilirubin (0-0.2) mg/dl AST (13-39) U/L ALT (7-52) U/L Alkaline Phosphatase (34-104) U/L Lactate Dehydrogenase 142 (86-244) U/L Troponin I High Sens 69.0 H* D (0-20) pg/ml Total Protein (6.0-8.3) gm/dl Albumin (3.4-5.0) gm/dl Procalcitonin (0-0.5) ng/ml Random Cortisol 16.24 mcg/dl Nasal Screen MRSA (PCR) (Negative) Adenovirus (PCR) (NotDetected) B. pertussis DNA (PCR) (NotDetected) B.parapertussis DNA PCR (NotDetected) C. pneumoniae DNA (PCR) (NotDetected) Coronavirus OC43 (PCR) (NotDetected) Coronavirus HKU1 (PCR) (NotDetected) Coronavirus 229E (PCR) (NotDetected) SARS-CoV-2 (PCR) (NotDetected) Coronavirus NL63 (PCR) (NotDetected) Human Metapneumovir PCR (NotDetected) Influenza Type A (PCR) (NotDetected) Influenza Type B (PCR) (NotDetected) M. pneumoniae (PCR) (NotDetected) Parainfluenza 1 (PCR) (NotDetected) Parainfluenza 2 (PCR) (NotDetected) Parainfluenza 3 (PCR) (NotDetected) Parainfluenza 4 (PCR) (NotDetected) RSV (PCR) (NotDetected) Entero/Rhino (PCR) (NotDetected) Administered Medications Albuterol (Albut/Ipratrop 3mg/0.5mg Neb 3 Ml Vial) 3 ml NEB QIDR JANES; Protocol Stop: 05/27/24 06:59 Last Admin: 04/27/24 15:38 Dose: 3 ml Documented By: Admin: 04/27/24 11:20 Dose: 3 ml Documented By: Admin: 04/27/24 07:30 Dose: 3 ml Documented By: LORELEI Brimonidine Tartrate (Brimonidine Tartrate-P 0.15% 5 Ml Btl) 1 drops OPL BID [facility] Stop: 05/27/24 08:59 Last Admin: 04/27/24 08:42 Dose: 1 drops Documented By: TANJAR Cholestyramine Resin (Cholestyramine Light 4 Gm Pkt) 4 gm PO BID@1000,2200 [facility] Stop: 05/27/24 09:59 Last Admin: 04/27/24 09:04 Dose: Not Given Documented By: TANJAR Dolutegravir Sodium (Dolutegravir Sodium 50 Mg Tab) 50 mg PO BID [facility]; Protocol Stop: 05/27/24 08:59 Last Admin: 04/27/24 08:40 Dose: 50 mg Documented By: TANJAR Doxycycline Hyclate (Doxycycline Hyclate 100 Mg Cap) 100 mg PO BID [facility] Stop: 05/03/24 23:59 Last Admin: 04/27/24 11:39 Dose: 100 mg Documented By: TANJAR Emtricitabine/Tenofovir (Emtricitabine/Tenofovir Tab) 1 tab PO QAM [facility]; Protocol Stop: 05/27/24 08:59 Last Admin: 04/27/24 08:37 Dose: 1 tab Documented By: TANJAR Enoxaparin Sodium (Enoxaparin Inj 30 Mg/0.3 Ml Syr) 30 mg SQ QAM [facility] Stop: 05/27/24 08:59 Last Admin: 04/27/24 08:43 Dose: Not Given Documented By: TANJAR Ethambutol HCl (Ethambutol Hcl 100 Mg Tab) 50 mg PO DAILY [facility] Stop: 05/27/24 08:59 Last Admin: 04/27/24 08:44 Dose: 50 mg Documented By: TANJAR Ethambutol HCl (Ethambutol Hcl 400 Mg Tab) 800 mg PO DAILY [facility] Stop: 05/27/24 08:59 Last Admin: 04/27/24 08:39 Dose: 800 mg Documented By: TANJAR Folic Acid (Folic Acid 1 Mg Tab) 1 mg PO DAILY [facility] Stop: 05/27/24 08:59 Last Admin: 04/27/24 08:39 Dose: 1 mg Documented By: DLR Guaifenesin (Guaifenesin 600 Mg Tabcr) 600 mg PO Q12 [facility]ANES Stop: 05/27/24 08:59 Last Admin: 04/27/24 08:59 Dose: 600 mg Documented By: DLR Hydrocortisone Sodium (Succinate 100 mg/ Syringe) 2 mls @ 4 mls/min IV Q8H JANES Stop: 05/27/24 08:59 Last Admin: 04/27/24 17:17 Dose: 4 mls/min Documented By: Admin: 04/27/24 09:05 Dose: 4 mls/min Documented By: DLR Pantoprazole Sodium 40 mg/ (Syringe) 10 mls @ 5 mls/min IV DAILY@1100 [facility] Stop: 05/27/24 10:59 Last Admin: 04/27/24 11:12 Dose: 5 mls/min Documented By: DLR Piperacillin Sod/Tazobactam Sod (Zosyn) 4.5 gm in 100 mls @ 25 mls/hr IV Q8H [facility]; Protocol Stop: 05/04/24 02:27 Last Infusion: 04/27/24 15:43 Dose: Infused Documented By: Admin: 04/27/24 11:40 Dose: 25 mls/hr Documented By: Infusion: 04/27/24 08:34 Dose: Infused Documented By: Admin: 04/27/24 04:14 Dose: 25 mls/hr Documented By: PATRICE Lactobacillus Acidophilus (Advanced Probiotic 625 Mg Capsule) 625 mg PO BID [facility]ANES Stop: 05/27/24 08:59 Last Admin: 04/27/24 08:38 Dose: 625 mg Documented By: DLR Midodrine (Midodrine Hcl 2.5 Mg Tab) 5 mg PO BID@0900,1700 [facility] Stop: 05/27/24 08:59 Last Admin: 04/27/24 17:15 Dose: 5 mg Documented By: Admin: 04/27/24 08:37 Dose: 5 mg Documented By: DLR Miscellaneous (Difluprednate 0.05 % Drops - Order Awaiting Action) 1 each N/A QS [facility] Stop: 05/27/24 07:59 Last Admin: 04/27/24 15:52 Dose: Not Given Documented By: Admin: 04/27/24 08:32 Dose: Not Given Documented By: DLR Miscellaneous (Difluprednate 0.05 % Drops - Order Awaiting Action) 1 each N/A QS JANES Stop: 05/27/24 07:59 Last Admin: 04/27/24 15:52 Dose: Not Given Documented By: Admin: 04/27/24 08:32 Dose: Not Given Documented By: DLR Miscellaneous (Rifabutin - Order Awaiting Action) 1 each N/A QS JANES Stop: 05/27/24 07:59 Last Admin: 04/27/24 15:52 Dose: Not Given Documented By: Admin: 04/27/24 08:32 Dose: Not Given Documented By: DLR Miscellaneous (Tedizolid [Sivextro] 200 Mg - Order Awaiting Action) 1 each N/A QS JANES Stop: 05/27/24 07:59 Last Admin: 04/27/24 15:52 Dose: Not Given Documented By: Admin: 04/27/24 08:32 Dose: Not Given Documented By: DLR Multivitamins (Multivitamin Tab) 1 tab PO DAILY [facility]AN[facility] Stop: 05/27/24 08:59 Last Admin: 04/27/24 08:39 Dose: 1 tab Documented By: DLR Pyridoxine HCl (Pyridoxine Hcl 50 Mg Tab) 50 mg PO DAILY [facility]AN[facility] Stop: 05/27/24 08:59 Last Admin: 04/27/24 08:37 Dose: 50 mg Documented By: DLR Trimethoprim/Sulfamethoxazole (Sulfamethoxazole/Trimethoprim Ds 800/160mg Tab) 1 tab PO DAILY [facility]ANES Stop: 05/27/24 08:59 Last Admin: 04/27/24 08:38 Dose: 1 tab Documented By: DLR Umeclidinium [place] (Umeclidinium [place] 62.5mcg/Blister 7 Puffs/Inhaler) 1 puffs INH DAILY [facility]ANES Stop: 05/27/24 08:59 Last Admin: 04/27/24 08:41 Dose: Not Given Documented By: DLR Vitamin D (Cholecalciferol 25 Mcg (1000 Units) Tab) 25 mcg PO DAILY [facility]AN[facility] Stop: 05/27/24 08:59 Last Admin: 04/27/24 08:40 Dose: 25 mcg Documented By: DLR Discontinued Medications Hydrocortisone Sodium Succinate (Hydrocortisone Sod Succinate 100 Mg/2 Ml Vial) 100 mg IV NOW STA Stop: 04/27/24 00:51 Last Admin: 04/27/24 01:38 Dose: 100 mg Documented By: GOLDY Piperacillin Sod/Tazobactam Sod (Zosyn) 4.5 gm in 100 mls @ 200 mls/hr IV NOW STA Stop: 04/26/24 22:52 Last Infusion: 04/26/24 23:43 Dose: Infused Documented By: Admin: 04/26/24 23:13 Dose: 200 mls/hr Documented By: GOLDY Sodium Chloride (Nss) 500 mls @ 999 mls/hr IV .Q31M ONE Stop: 04/26/24 23:00 Last Infusion: 04/26/24 23:36 Dose: Infused Documented By: Admin: 04/26/24 23:05 Dose: 999 mls/hr Documented By: GOLDY Calcium Gluconate () 1,000 mg in 60 mls @ 240 mls/hr IV NOW STA Stop: 04/26/24 23:28 Last Infusion: 04/26/24 23:37 Dose: Infused Documented By: Admin: 04/26/24 23:22 Dose: 240 mls/hr Documented By: GOLDY Sodium Chloride (Nss) 500 mls @ 999 mls/hr IV .Q31M ONE Stop: 04/27/24 00:15 Last Infusion: 04/27/24 00:26 Dose: Infused Documented By: Admin: 04/26/24 23:55 Dose: 999 mls/hr Documented By: GOLDY Albumin Human (Albumin 25%) 25 gm in 100 mls @ 50 mls/hr IV Q2H JANES Stop: 04/27/24 04:44 Last Infusion: 04/27/24 06:14 Dose: Infused Documented By: Admin: 04/27/24 04:14 Dose: 50 mls/hr Documented By: Infusion: 04/27/24 03:37 Dose: Infused Documented By: Admin: 04/27/24 01:37 Dose: 50 mls/hr Documented By: GOLDY Azithromycin 500 mg/ Dextrose 255 mls @ 125 mls/hr IV NOW ONE Stop: 04/27/24 03:02 Last Infusion: 04/27/24 03:09 Dose: Infused Documented By: Admin: 04/27/24 01:06 Dose: 125 mls/hr Documented By: GOLDY Parenteral Electrolytes (Plasma-Lyte A Ph 7.4) 1,000 mls @ 80 mls/hr IV .[id number] JANES Stop: 04/27/24 13:14 Last Infusion: 04/27/24 12:55 Dose: Infused Documented By: Admin: 04/27/24 01:03 Dose: 80 mls/hr Documented By: GOLDY Imaging Data Radiologist's Impression: Chest X-Ray 04/26/24 22:24 XR chest 1V portable HISTORY: 43 years-old Male Sepsis COMPARISON: Chest CT 04/27/2024 TECHNIQUE: AP view of the chest FINDINGS: Right IJ Lzuawd-t-Xdok catheter. Heart size is normal. There are a few calcified right-sided pleural plaques noted. Emphysema with chronic interstitial coarsening redemonstrated. The bones appear grossly intact. IMPRESSION: Emphysema with similar appearance of the chronic interstitial coarsening. Please refer to the same day chest CT for additional findings. ACT 112: Negative or not required by law. The above report was generated using voice recognition software. It may contain grammatical, syntax or spelling errors. Electronically signed by: Rashid Nunez M.D. 04/27/2024 8:32 AM Discharge Plan Visit Data Chief Complaint: Respiratory Distress Stated Complaint: SHORTNESS OF BREATH, RESP DISTRESS ED Provider: Fede Augustin Discharge Problem: Acute on chronic respiratory failure with hypoxia, Mycobacterium avium complex, Sepsis Patient Disposition: Admitted As Inpatient Discharge Instructions Interventions: ED Discharge Assessment Last Done: 04/27/24 01:47 Discharge Problem: Sepsis Qualifiers: Sepsis type: sepsis due to unspecified organism Sepsis acute organ dysfunction status: with acute organ dysfunction Severe sepsis acute organ dysfunction type: acute respiratory failure Acute respiratory failure type: with hypoxia Severe sepsis shock status: without septic shock Qualified Code(s): A41.9 - Sepsis, unspecified organism; R65.20 - Severe sepsis without septic shock; J96.01 - Acute respiratory failure with hypoxia
[2024-04-26 22:56] LABS: iSTAT Creatinine 1.7 mg/dl (0.6-1.3); iSTAT Hemoglobin 17.7 g/dl (14.0-18.0); iSTAT Ionized Calcium 1.04 mmol/l (1.12-1.32); iSTAT Potassium 4.1 mmol/L (3.3-5.0)
[2024-04-26 23:00] LABS: Basophils # (auto) 0.02 K/uL (0.00-0.20); Basophils % (auto) 0.2 %; Eosinophils # (auto) 0.04 K/uL (0.00-0.50); Eosinophils % (auto) 0.5 %; Hemoglobin 15.5 g/dl (14.0-18.0); Immature Granulocytes # (auto) 0.06 K/uL (0.01-0.20); Immature Granulocytes % (auto) 0.7 %; Lymphocytes # (auto) 0.81 K/uL (1.20-3.40); Lymphocytes % (auto) 9.2 %; Mean Corpuscular Hemoglobin 26.7 pg (25.0-34.0); Mean Corpuscular Hgb Conc 32.3 g/dL (32.0-36.0); Mean Corpuscular Volume 82.8 fL (80.0-100.0); Mean Platelet Volume 9.1 fL (9.4-12.4); Monocytes # (auto) 0.29 K/uL (0.11-0.59); Monocytes % (auto) 3.3 %; Neutrophils # (auto) 7.57 K/uL (1.40-6.50); Neutrophils % (auto) 86.1 %; Platelet Count 169 K/uL (130-400); RDW Coefficient of Variation 19.1 % (11.5-14.5); RDW Standard Deviation 52.8 fL (36.4-46.3); White Blood Count 8.79 K/ul (4.8-10.8)
[2024-04-26] MEDS: SODIUM CHLORIDE 0.9% 500 ML IV ONE ×2 (23:05→23:55)
[2024-04-26 23:06] LABS: Albumin Level 2.5 gm/dl (3.4-5.0); Bilirubin Direct 0.1 mg/dl (0-0.2); Bilirubin,Total 0.2 mg/dl (0.2-1.0); Magnesium 1.9 mg/dl (1.7-2.4); Potassium 4.1 mmol/L (3.5-5.1)
[2024-04-26 23:12] LABS: BUN Creatinine Ratio 13.2 (10-20); Creatinine Clr Calc Pharmacy 42.2 ml/min; Total Protein 6.8 gm/dl (6.0-8.3)
[2024-04-26] MEDS: PIPERACILLIN/TAZOBACTAM 4.5 GM/100 ML BAG IV STA (23:13)
[2024-04-26 23:20] LABS: HCO3 VBG 22 mmol/L; Oxygen Saturation VBG < 60.0 %; PCO2 VBG 45 mmHg (38-50); PO2 VBG 33 mmHg; pH VBG 7.29 (7.36-7.41)
[2024-04-26] MEDS: CALCIUM GLUCONATE 1,000 MG/60 ML BAG IV STA (23:22)
[2024-04-26 23:34] LABS: Partial Thromboplastin Ratio 1.1; Partial Thromboplastin Time 30 Seconds (21-31); Prothrombin Time 10.5 Seconds (9.0-12.0)
[2024-04-26 23:36] LABS: Troponin I High Sensitivity 25.8 pg/ml (0-20)
[2024-04-27 00:14] LABS: Adenovirus PCR Not Detected (NotDetected); Bordetella parapertussis PCR Not Detected (NotDetected); Bordetella pertussis PCR Not Detected (NotDetected); Chlamydia pneumoniae PCR Not Detected (NotDetected); Coronavirus 229E PCR Not Detected (NotDetected); Coronavirus CoV-2 (COVID19)PCR Not Detected (NotDetected); Coronavirus HKU1 PCR Not Detected (NotDetected); Coronavirus NL63 PCR Not Detected (NotDetected); Coronavirus OC43PCR Not Detected (NotDetected); Human Metapneumovirus PCR Not Detected (NotDetected); Influenza A PCR Not Detected (NotDetected); Influenza B PCR Not Detected (NotDetected); Mycoplasma pneumoniae PCR Not Detected (NotDetected); Parainfluenza Virus 1 PCR Not Detected (NotDetected); Parainfluenza Virus 2 PCR Not Detected (NotDetected); Parainfluenza Virus 3 PCR Not Detected (NotDetected); Parainfluenza Virus 4 PCR Not Detected (NotDetected); Respiratory Syncytial VirusPCR Not Detected (NotDetected); Rhinovirus/Enterovirus PCR Not Detected (NotDetected)
[2024-04-27] MEDS ORDERED: PROMETHAZINE 12.5 MG/50.5 ML BAG IV PRN (00:44)
--- NOTE | 2024-04-27 00:57 | History & Physical Report ---
Date of Service April 27, 2024 Assessment & Plan (1) Sepsis: (2) Acute on chronic respiratory failure with hypoxia: (3) HIV (human immunodeficiency virus infection): (4) Mycobacterium avium complex: (5) Severe protein-calorie malnutrition: (6) Intraabdominal mass: (7) Malignant ascites: (8) Cachexia associated with AIDS: (9) Hypotension: (10) Emphysema lung: Plan Sepsis/acute on chronic respiratory failure with hypoxia/chronic MAC infection- Continue amikacin IV Sunday, Sunday and Sunday Azithromycin 500 mg IV daily Continue ethambutol Continue rifabutin, nonformulary, will need to bring in own Zosyn 4.5 g IV every 8 hours Presently on CPAP, meet titrate downward to nasal cannula with target pulse ox 92% Duonebs every 4 hours while awake and every 2 hours when necessary. Order CT chest without contrast Hypotension- Has received 1 L normal saline from the ED Give albumin 50 g IV, albumin of 2.5 Placed on Plasma-Lyte at 80 mL/h x 1 L Continue midodrine Hold spironolactone Admit to telemetry Acute kidney injury- Creatinine 1.67 on admission, with base 1.0-1.1 IV fluids as noted above Recheck laboratories in a.m. If creatinine is improved enough in the morning, may get CT chest with contrast if needed HIV/AIDS- Continue usual medications: Biktarvy, Tivicay, TDF, Sivextro, Bactrim DS DVT Prophylaxis- Continue lovenox 30mg SQ daily History of Present Illness Chief Complaint: The patient presents to the emergency department with worsening shortness of breath over the past 24 hours, and low blood pressure noted at the snf. Primary Care Provider: [facility] The patient is a 43-year-old male resident of [facility], with known past medical history including chronic MAC, HIV/AIDS, chronic respiratory failure, cachexia, malignant ascites, severe protein calorie malnutrition, hypotension, COPD, LVH, previous sepsis and anemia. He presents to the emergency department with worsening shortness of breath that became more acute earlier in the morning on 04/26/2024. He was brought to the emergency department, where he is found to be hypoxic, which improved with BiPAP, and then converted to CPAP. Blood pressure was relatively low, with systolic blood pressure at its lowest 78, and did improve with IV fluids given in the ED to the mid 90s. Allergies Allergy/AdvReac Type Severity Reaction Status Date / Time No Known Allergies Allergy Verified 04/03/24 11:16 Home Medications Medication Instructions Recorded Confirmed Type A&D Ointment 1 applic topical DAILY 02/01/24 04/27/24 History Lactobacillus acidophilus 0 mg PO BID 02/01/24 04/27/24 History (Acidophilus capsule) Robitussin Max Stren 100/5ml 15 ml PO QID PRN .cough 02/01/24 04/27/24 History Vitamin E Lotion 1 applic topical TID 02/01/24 04/27/24 History acetaminophen 325 mg tablet 650 mg PO QID PRN Pain 02/01/24 04/27/24 History (Tylenol) brimonidine 0.15 % eye drops 1 drp OPL BID 02/01/24 04/27/24 History cholecalciferol (vitamin D3) 25 25 mcg PO DAILY 02/01/24 04/27/24 History mcg (1,000 unit) tablet (Vitamin D3) cholestyramine (with sugar) 4 gram 4 g PO BID 02/01/24 04/27/24 History powder for susp in a packet (Questran) difluprednate 0.05 % eye drops 1 drp OPL .6XSDAY 02/01/24 04/27/24 History difluprednate 0.05 % eye drops 1 drp OPR BID 02/01/24 04/27/24 History ergocalciferol (vitamin D2) 1,250 1,250 mcg PO .WEEKLY 02/01/24 04/27/24 History mcg (50,000 unit) capsule (Vitamin D2) ethambutol 100 mg tablet 50 mg PO DAILY 02/01/24 04/27/24 History ethambutol 400 mg tablet 800 mg PO DAILY 02/01/24 04/27/24 History loperamide 2 mg tablet (Imodium 2 mg PO TID PRN Diarrhea 02/01/24 04/27/24 History A-D) midodrine 5 mg tablet 5 mg PO BID 02/01/24 04/27/24 History multivitamin 1 tab PO DAILY 02/01/24 04/27/24 History sulfamethoxazole 800 1 tab PO DAILY 02/01/24 04/27/24 History mg-trimethoprim 160 mg tablet (Bactrim DS) umeclidinium 62.5 mcg/actuation 1 inh inhalation DAILY 02/01/24 04/27/24 History blister powder for inhalation (Incruse Ellipta) amikacin 250 mg/mL injection 1,200 mg IV 3XWK 04/27/24 04/27/24 History solution dolutegravir 50 mg tablet (Tivicay) 50 mg PO BID 04/27/24 04/27/24 History emtricitabine 200 mg-tenofovir 1 tab PO BID 04/27/24 04/27/24 History disoproxil fumarate 300 mg tablet (Truvada) enoxaparin 30 mg/0.3 mL 30 mg subcut 1XD 04/27/24 04/27/24 History subcutaneous solution folic acid 1 mg tablet 1 mg PO DAILY 04/27/24 04/27/24 History pantoprazole 40 mg tablet,delayed 40 mg PO DAILY 04/27/24 04/27/24 History release pyridoxine (vitamin B6) 50 mg 50 mg PO DAILY 04/27/24 04/27/24 History tablet rifabutin 150 mg capsule 300 mg PO DAILY 04/27/24 04/27/24 History tedizolid 200 mg tablet (Sivextro) 200 mg PO DAILY 04/27/24 04/27/24 History Past Med/Surg History Problem List (Updated 04/27/24 @ 01:09 by Ru Durand MD) Acute on chronic respiratory failure with hypoxia Severe protein-calorie malnutrition Intraabdominal mass (Acute) Malignant ascites (Acute) Anaplasmosis Cachexia associated with AIDS Enterovirus infection (Acute) Infection due to parainfluenza virus 3 (Acute) Anemia (Acute) Hypotension (Acute) Emphysema lung Mycobacterium avium complex (Acute) Enteritis Abdominal pain (Acute) Anemia (Acute) Acute hyponatremia (Acute) Skin lesion of chest wall Dyspnea Irritable bowel syndrome Vision loss of left eye Abnormal computerized tomography of biliary tract LVH (left ventricular hypertrophy) Abnormal CT scan, chest Sepsis (Acute) Cough (Acute) Anemia (Acute) Hypotension (Acute) HIV (human immunodeficiency virus infection) (Acute) Medical History Diarrhea Hyperlipemia Iron deficiency anemia Vitamin D deficiency Social History Smoking Status: Unknown if ever smoked Second Hand Exposure: No; Do You Dip or Chew Tobacco: No; Hx Alcohol Use: No Hx Substance Use: No Preferred Language: Swazi Communication Ability: Effective [employer] Super[employer] Required: No Beliefs That Will Affect Care: None Current Living Situation: Other Current Living Situation Comment: [facility] Feels Safe at Home: Yes Assistive Devices: Walker Review of Systems Review of Systems: The patient denies chest pain, palpitations, lower extremity swelling, sore throat, fevers, chills, sweats, nausea, vomiting, diarrhea , constipation, abdominal pain, pelvic pain, blood in urine or stool, dysuria, urinary frequency or urgency, lightheadedness, dizziness, headache, memory loss, loss of consciousness, rash, abnormal bruising or bleeding, imbalance, focal weakness, numbness or tingling in arms or legs, generalized arthralgias or myalgias, back or neck pain, or night sweats. The review of systems is otherwise negative other than for that already noted above, and at least 10 systems have been reviewed. Physical Exam Physical Exam: The patient is awake, alert and oriented 3, signs of cachexia, normocephalic and atraumatic, lying in bed and in no acute distress. HEENT--PERRL, EOMI, mucous membranes and oropharynx dry. Neck--supple.No JVD. No bruits. Thyroid normal, trachea midline, no adenopathy. Heart--normal S1 and S2.No murmurs, rubs or gallops. Lungs--coarse breath sounds bilaterally. No respiratory distress, no accessory muscle use on BiPAP Abdomen--normal bowel sounds and soft. Nontender. Nondistended, no hernias or masses,no organomegaly. Extremities--no cyanosis or clubbing. No edema. There are good distal pulses b/l. Dermatologic--normal skin turgor, normal color, no abnormal lymph nodes, no rash. Neurologic--cranial nerves II through XII grossly intact. Rheumatologic--normal range of motion. Psychiatric--normal affect. Results & Data Results & Data Vital Signs (Past 12 Hours) Vital Signs Temp Pulse Pulse Resp BP BP Pulse Ox 04/27/24 00:45 62 16 97/73 L 100 04/27/24 00:30 59 L 16 101/74 100 04/27/24 00:15 58 L 14 90/64 L 100 04/27/24 00:00 57 L 14 78/56 L 100 04/26/24 23:45 57 L 16 86/66 L 100 04/26/24 23:36 77 14 99 04/26/24 23:30 63 16 94/70 L 100 04/26/24 23:15 65 16 94/68 L 100 04/26/24 22:36 76 04/26/24 22:24 04/26/24 22:24 04/26/24 22:24 35.6 C L 91 H 17 90/77 L 98 O2 Del Method FiO2 04/27/24 00:45 BiPAP 04/27/24 00:30 BiPAP 04/27/24 00:15 BiPAP 04/27/24 00:00 CPAP 50 04/26/24 23:45 BiPAP 50 04/26/24 23:36 50 04/26/24 23:30 BiPAP 04/26/24 23:15 BiPAP 04/26/24 22:36 04/26/24 22:24 BiPAP 04/26/24 22:24 BiPAP 04/26/24 22:24 BiPAP Laboratory Results Laboratory Results WBC 8.79 K/ul (4.8-10.8) 04/26/24 22:35 RBC 5.80 M/uL (4.70-6.10) 04/26/24 22:35 Hgb 15.5 g/dl (14.0-18.0) 04/26/24 22:35 POC Hgb 17.7 g/dl (14.0-18.0) 04/26/24 22:43 Hct 48.0 % (42.0-52.0) 04/26/24 22:35 POC Hct 52 % (42-52) 04/26/24 22:43 MCV 82.8 fL (80.0-100.0) 04/26/24 22:35 MCH 26.7 pg (25.0-34.0) 04/26/24 22:35 MCHC 32.3 g/dL (32.0-36.0) 04/26/24 22:35 RDW Std Deviation 52.8 fL (36.4-46.3) H 04/26/24 22:35 RDW Coeff of Brody 19.1 % (11.5-14.5) H 04/26/24 22:35 Plt Count 169 K/uL (130-400) 04/26/24 22:35 MPV 9.1 fL (9.4-12.4) L 04/26/24 22:35 Immature Gran % (Auto) 0.7 % 04/26/24 22:35 Neut % (Auto) 86.1 % 04/26/24 22:35 Lymph % (Auto) 9.2 % 04/26/24 22:35 Boyd % (Auto) 3.3 % 04/26/24 22:35 Eos % (Auto) 0.5 % 04/26/24 22:35 Baso % (Auto) 0.2 % 04/26/24:35 Neut # (Auto) 7.57 K/uL (1.40-6.50) H 04/26/24 22:35 Lymph # (Auto) 0.81 K/uL (1.20-3.40) L 04/26/24 22:35 Boyd # (Auto) 0.29 K/uL (0.11-0.59) 04/26/24 22:35 Eos # (Auto) 0.04 K/uL (0.00-0.50) 04/26/24 22:35 Baso # (Auto) 0.02 K/uL (0.00-0.20) 04/26/24 22:35 Immature Gran # (Auto) 0.06 K/uL (0.01-0.20) 04/26/24 22:35 PT 10.5 Seconds (9.0-12.0) 04/26/24 22:35 INR 1.0 (0.9-1.1) 04/26/24 22:35 APTT 30 Seconds (21-31) 04/26/24 22:35 PTT Ratio 1.1 04/26/24:35 VBG pH 7.29 (7.36-7.41) L 04/26/24:58 VBG pCO2 45 mmHg (38-50) 04/26/24:58 VBG pO2 33 mmHg 04/26/24:58 VBG HCO3 22 mmol/L 04/26/24:58 VBG O2 Saturation < 60.0 % 04/26/24:58 VBG Base Excess -5.0 mEq/L 04/26/24 22:58 POC Sodium 136 mmol/L (135-144) 04/26/24 22:43 Sodium 133 mmol/L (136-145) L 04/26/24 22:35 POC Potassium 4.1 mmol/L (3.3-5.0) 04/26/24 22:43 Potassium 4.1 mmol/L (3.5-5.1) 04/26/24 22:35 POC Chloride 108 mmol/L (101-112) 04/26/24 22:43 Chloride 107 mmol/L (98-107) 04/26/24 22:35 Carbon Dioxide 21 mmol/L (21-32) 04/26/24 22:35 POC Total CO2 20 mmol/L (24-31) L 04/26/24 22:43 Anion Gap 5 (3-11) 04/26/24 22:35 POC Anion Gap 13.0 mmol/L (16-25) L 04/26/24 22:43 POC BUN 26 mg/dl (7-18) H 04/26/24 22:43 BUN 22 mg/dl (6-23) 04/26/24 22:35 Creatinine 1.67 mg/dl (0.6-1.4) H 04/26/24 22:35 POC Creatinine 1.7 mg/dl (0.6-1.3) H 04/26/24 22:43 Est Cr Clr Drug Dosing 42.2 ml/min 04/26/24 22:35 eGFR 52.41 04/26/24 22:35 BUN/Creatinine Ratio 13.2 (10-20) 04/26/24 22:35 Glucose 79 mg/dl (70-99(Fasting)) 04/26/24 22:35 POC Glucose (other) 83 mg/dl (70-99) 04/26/24 22:43 Lactate 1.3 mmol/L (0.4-2.0) 04/26/24 22:58 Calcium 8.0 mg/dl (8.6-10.3) L 04/26/24 22:35 POC Ioniz Calcium Cash 1.04 mmol/l (1.12-1.32) L 04/26/24 22:43 Magnesium 1.9 mg/dl (1.7-2.4) 04/26/24 22:35 Total Bilirubin 0.2 mg/dl (0.2-1.0) 04/26/24 22:35 Direct Bilirubin 0.1 mg/dl (0-0.2) 04/26/24 22:35 AST 41 U/L (13-39) H 04/26/24 22:35 ALT 33 U/L (7-52) 04/26/24 22:35 Alkaline Phosphatase 155 U/L (34-104) H 04/26/24 22:35 Troponin I High Sens 25.8 pg/ml (0-20) H 04/26/24 22:35 Total Protein 6.8 gm/dl (6.0-8.3) 04/26/24:35 Albumin 2.5 gm/dl (3.4-5.0) L 04/26/24 22:35 Procalcitonin 1.73 ng/ml (0-0.5) H 04/26/24 22:35 Nasal Screen MRSA (PCR) Negative (Negative) 04/26/24:58 Adenovirus (PCR) Not Detected (NotDetected) 04/26/24 22:58 B. pertussis DNA (PCR) Not Detected (NotDetected) 04/26/24 22:58 B.parapertussis DNA PCR Not Detected (NotDetected) 04/26/24 22:58 C. pneumoniae DNA (PCR) Not Detected (NotDetected) 04/26/24 22:58 Coronavirus OC43 (PCR) Not Detected (NotDetected) 04/26/24 22:58 Coronavirus HKU1 (PCR) Not Detected (NotDetected) 04/26/24 22:58 Coronavirus 229E (PCR) Not Detected (NotDetected) 04/26/24 22:58 SARS-CoV-2 (PCR) Not Detected (NotDetected) 04/26/24 22:58 Coronavirus NL63 (PCR) Not Detected (NotDetected) 04/26/24 22:58 Human Metapneumovir PCR Not Detected (NotDetected) 04/26/24 22:58 Influenza Type A (PCR) Not Detected (NotDetected) 04/26/24 22:58 Influenza Type B (PCR) Not Detected (NotDetected) 04/26/24 22:58 M. pneumoniae (PCR) Not Detected (NotDetected) 04/26/24 22:58 Parainfluenza 1 (PCR) Not Detected (NotDetected) 04/26/24 22:58 Parainfluenza 2 (PCR) Not Detected (NotDetected) 04/26/24 22:58 Parainfluenza 3 (PCR) Not Detected (NotDetected) 04/26/24 22:58 Parainfluenza 4 (PCR) Not Detected (NotDetected) 04/26/24 22:58 RSV (PCR) Not Detected (NotDetected) 04/26/24 22:58 Entero/Rhino (PCR) Not Detected (NotDetected) 04/26/24 22:58 Code Status & VTE Plan Code Status Full code PG Care Time/CCT Total # of Minutes Spent Total Time Spent with Patient: Total time spent is greater than 50% in coordination of care (as documented) at patient's floor/unit and/or counseling patient: Coding Level of Care Code 78990 INT INP/OBS CARE 3/75MIN Diagnoses Sepsis A41.9 Acute on chronic respiratory failure with hypoxia J96.21 HIV (human immunodeficiency virus infection) Z21 HIV symptom status: unspecified Mycobacterium avium complex A31.0 Severe protein-calorie malnutrition E43 Intraabdominal mass R19.00 Malignant ascites R18.0 Cachexia associated with AIDS B20; E88.A Hypotension I95.9 Emphysema lung J43.9 (3) HIV (human immunodeficiency virus infection) HIV symptom status: unspecified Qualified Code(s): Z21 - Asymptomatic human immunodeficiency virus [HIV] infection status
[2024-04-27] MEDS: PLASMA-LYTE A 1,000 ML IV SCH (01:03)
[2024-04-27] MEDS: AZITHROMYCIN 500 MG in DEXTROSE 5% 250 ML IV ONE (01:06)
[2024-04-27] MEDS: ALBUMIN 25% 25 GM/100 ML VIAL IV SCH (01:37)
[2024-04-27] MEDS: HYDROCORTISONE SOD SUCCINATE 100 MG/2 ML VIAL IV STA (01:38)
[2024-04-27] MEDS ORDERED: ACETAMINOPHEN 325 MG TAB PO PRN (02:28)
[2024-04-27] MEDS ORDERED: AMIKACIN 250 MG/ML IV SCH (03:00)
--- NOTE | 2024-04-27 03:14 | CT Scan Report ---
Exam(s): CT CHEST Without Contrast EXAM: CT Chest Without Intravenous Contrast CLINICAL HISTORY: Hypoxia TECHNIQUE: Axial computed tomography images of the chest without intravenous contrast. CTDI is 7.27 mGy and DLP is 239.77 mGy-cm. Automated exposure control was utilized for the study. A dose lowering technique was utilized adhering to the principles of ALARA. COMPARISON: CTA chest 12/04/2023 FINDINGS: Lungs: Emphysema is noted. There is a focus of groundglass opacity of the left lower lobe concerning for atypical infection. Pleural space: Unremarkable. No pneumothorax. No significant effusion. Heart: Unremarkable. No cardiomegaly. No significant pericardial effusion. No significant coronary artery calcifications. Bones/joints: There are degenerative changes of the spine. No acute fracture. No dislocation. Soft tissues: Unremarkable. Vasculature: Unremarkable. No thoracic aortic aneurysm. Lymph nodes: Unremarkable. No enlarged lymph nodes. Intraperitoneal space: Incidentally noted large free fluid in the abdomen. IMPRESSION: 1. There is a focus of groundglass opacity of the left lower lobe concerning for atypical infection. 2. Emphysema is noted. Emphysema is an independent risk factor for lung cancer. Recommend evaluation for low dose lung cancer screening protocol. 3. Incidentally noted large free fluid in the abdomen. Electronically signed by: Ely Vela MD 04/27/24 03:13 AM
[2024-04-27] MEDS ORDERED: guaiFENesin SUGAR FREE 100 MG/5 ML UDC PO PRN (03:39)
[2024-04-27] MEDS ORDERED: AMIKACIN CONSULT ACTIVE PRN (03:51)
[2024-04-27] MEDS: PIPERACILLIN/TAZOBACTAM 4.5 GM/100 ML BAG IV SCH (04:14)
[2024-04-27 06:11] LABS: Appearance Urine Turbid (Clear); Bacteria Urine Automated None Seen (None Seen); Bilirubin Urine Negative (Negative); Blood Urine 3+ (Negative); Cast Urine Automated >20 /lpf (0-2); Color Urine Yellow; Glucose Urine UA Negative (Negative); Ketones Urine Negative (Negative); Leukocyte Esterase Urine 1+ (Negative); Nitrite Urine Negative (Negative); Protein Urine 1+ (Negative); RBC Urine Automated >20 /hpf (0-2); Urobilinogen Urine Negative (Negative); WBC Urine Automated 0-5 /hpf (0-5)
[2024-04-27 06:33] LABS: Amorphous Sediment Urine Present (None Prsent); Calcium Oxalate Crystals Urine Present (None Prsent); Granular Casts Urine Present /lpf (None Prsent)
[2024-04-27 06:47] LABS: Hematocrit (blood only) 33.8 % (42.0-52.0); Mean Corpuscular Hemoglobin 26.7 pg (25.0-34.0); Mean Corpuscular Hgb Conc 32.5 g/dL (32.0-36.0); Mean Platelet Volume 9.4 fL (9.4-12.4); Platelet Count 136 K/uL (130-400); RDW Coefficient of Variation 17.4 % (11.5-14.5); RDW Standard Deviation 51.2 fL (36.4-46.3); Red Blood Count 4.12 M/uL (4.70-6.10); White Blood Count 14.41 K/ul (4.8-10.8)
[2024-04-27 07:06] LABS: Albumin Globulin Ratio 0.9 (0.9-2); Albumin Level 2.7 gm/dl (3.4-5.0); BUN Creatinine Ratio 13.8 (10-20); Bilirubin,Total 0.2 mg/dl (0.2-1.0); Calcium 7.6 mg/dl (8.6-10.3); Creatinine Clr Calc Pharmacy 48.6 ml/min; Magnesium 1.8 mg/dl (1.7-2.4); Total Protein 5.7 gm/dl (6.0-8.3)
[2024-04-27 07:08] LABS: Basophils # (auto) 0.04 K/uL (0.00-0.20); Basophils % (auto) 0.3 %; Eosinophils # (auto) 0.03 K/uL (0.00-0.50); Eosinophils % (auto) 0.2 %; Immature Granulocytes # (auto) 0.09 K/uL (0.01-0.20); Immature Granulocytes % (auto) 0.6 %; Lymphocytes # (auto) 0.57 K/uL (1.20-3.40); Monocytes # (auto) 0.24 K/uL (0.11-0.59); Monocytes % (auto) 1.7 %; Neutrophils # (auto) 13.44 K/uL (1.40-6.50); Neutrophils % (auto) 93.2 %
[2024-04-27 07:16] LABS: Partial Thromboplastin Ratio 1.2; Partial Thromboplastin Time 32 Seconds (21-31); Prothrombin Time 10.7 Seconds (9.0-12.0); Troponin I High Sensitivity 87.2 pg/ml (0-20)
[2024-04-27] MEDS: ALBUT/IPRATROP 3MG/0.5MG NEB 3 ML VIAL NEB SCH (07:30)
--- NOTE | 2024-04-27 08:16 | Pulmonary Consultation ---
Date of Consultation April 27, 2024 Assessment & Plan (1) Acute on chronic respiratory failure with hypoxia: (2) Severe protein-calorie malnutrition: (3) Mycobacterium avium complex: (4) Emphysema lung: (5) Multifocal pneumonia: (6) Bronchiectasis: (7) Cachexia associated with AIDS: Plan CT chest 04/27/2024 personally reviewed: Centrilobular and paraseptal emphysema appreciated bilaterally Patchy opacity in the lingula unchanged compared to 12/06 New patchy opacities in left lower lobe There are saccular bronchiectasis appreciated in the right middle lobe as well as lingula Bronchial wall thickening in bilateral lower lobes more on the left side -- Acute hypoxic respiratory failure Respiratory BioFire negative for everything on 04/26/2024 Procalcitonin 1.73 --COPD with emphysema On Incruse at home --Bronchiectasis with MAC Sputum culture was positive twice on 05/16/2023 as well as 05/15/2023 Given the saccular bronchiectasis, it is recommended patient to be treated with triple therapy On rifabutin ethambutol and amikacin IV along with pyridoxine --HIV/AIDS On Truvada and Tivicay as outpatient On Bactrim prophylaxis Plan: Patient's MAC is resistant to azithromycin, I will discontinue with rather give him doxycycline for total of 10 days given the bronchiectasis Follow-up sputum culture and AFB sputum Continue with antibiotic Alpha-1 antitrypsin level and phenotype to be done tomorrow Mucinex with flutter valve Please note the above document was generated using voice recognition software. It may contain grammatical, syntax or spelling errors.Any formal questions or concerns about the content, text or information contained within the body of this dictation should be directly addressed to the provider for clarification. History of Present Illness Attending Physician: Timur Carter MD History of Present Illness 43-year-old male presented to the hospital with complaints of shortness of breath Past medical history: HIV/AIDS, MAC on treatment, bronchiectasis, cachexia, protein calorie malnutrition Pulmonary consulted for hypoxia and abnormal chest CT At the time of examination patient was not in any respiratory distress, he was frail-appearing Saturating 100% on 4 L nasal cannula. He was in the hospital around January and then transferred to [place] and discharged around February from there He was started on MAC therapy and found to be resistant to azithromycin so it was changed to amikacin IV. He is compliant with his inhalers and medications as per him He complains of having the feeling of phlegm but not able to bring it up Subjective chills, no fever. Denies any headache. No nausea vomiting Social history: Lifetime non-smoker. Denies any snorting or smoking any illicit drugs Did grow around mother who was a heavy smoker History of lung cancer in mother who was a smoker Allergies Allergy/AdvReac Type Severity Reaction Status Date / Time No Known Allergies Allergy Verified 04/03/24 11:16 Home Medications Medication Instructions Recorded Confirmed Type A&D Ointment 1 applic topical DAILY 02/01/24 04/27/24 History Lactobacillus acidophilus 0 mg PO BID 02/01/24 04/27/24 History (Acidophilus capsule) Robitussin Max Stren 100/5ml 15 ml PO QID PRN .cough 02/01/24 04/27/24 History Vitamin E Lotion 1 applic topical TID 02/01/24 04/27/24 History acetaminophen 325 mg tablet 650 mg PO QID PRN Pain 02/01/24 04/27/24 History (Tylenol) brimonidine 0.15 % eye drops 1 drp OPL BID 02/01/24 04/27/24 History cholecalciferol (vitamin D3) 25 25 mcg PO DAILY 02/01/24 04/27/24 History mcg (1,000 unit) tablet (Vitamin D3) cholestyramine (with sugar) 4 gram 4 g PO BID 02/01/24 04/27/24 History powder for susp in a packet (Questran) difluprednate 0.05 % eye drops 1 drp OPL .6XSDAY 02/01/24 04/27/24 History difluprednate 0.05 % eye drops 1 drp OPR BID 02/01/24 04/27/24 History ergocalciferol (vitamin D2) 1,250 1,250 mcg PO .WEEKLY 02/01/24 04/27/24 History mcg (50,000 unit) capsule (Vitamin D2) ethambutol 100 mg tablet 50 mg PO DAILY 02/01/24 04/27/24 History ethambutol 400 mg tablet 800 mg PO DAILY 02/01/24 04/27/24 History loperamide 2 mg tablet (Imodium 2 mg PO TID PRN Diarrhea 02/01/24 04/27/24 History A-D) midodrine 5 mg tablet 5 mg PO BID 02/01/24 04/27/24 History multivitamin 1 tab PO DAILY 02/01/24 04/27/24 History sulfamethoxazole 800 1 tab PO DAILY 02/01/24 04/27/24 History mg-trimethoprim 160 mg tablet (Bactrim DS) umeclidinium 62.5 mcg/actuation 1 inh inhalation DAILY 02/01/24 04/27/24 History blister powder for inhalation (Incruse Ellipta) amikacin 250 mg/mL injection 1,200 mg IV 3XWK 04/27/24 04/27/24 History solution dolutegravir 50 mg tablet (Tivicay) 50 mg PO BID 04/27/24 04/27/24 History emtricitabine 200 mg-tenofovir 1 tab PO BID 04/27/24 04/27/24 History disoproxil fumarate 300 mg tablet (Truvada) enoxaparin 30 mg/0.3 mL 30 mg subcut 1XD 04/27/24 04/27/24 History subcutaneous solution folic acid 1 mg tablet 1 mg PO DAILY 04/27/24 04/27/24 History pantoprazole 40 mg tablet,delayed 40 mg PO DAILY 04/27/24 04/27/24 History release pyridoxine (vitamin B6) 50 mg 50 mg PO DAILY 04/27/24 04/27/24 History tablet rifabutin 150 mg capsule 300 mg PO DAILY 04/27/24 04/27/24 History tedizolid 200 mg tablet (Sivextro) 200 mg PO DAILY 04/27/24 04/27/24 History Patient History Medical History Diarrhea Hyperlipemia Iron deficiency anemia Vitamin D deficiency Social History Smoking Status: Unknown if ever smoked Second Hand Exposure: No; Do You Dip or Chew Tobacco: No; Hx Alcohol Use: No Hx Substance Use: No Preferred Language: Austrian Communication Ability: Effective Classifier Required: No Beliefs That Will Affect Care: None Current Living Situation: Other Current Living Situation Comment: [facility] Feels Safe at Home: Yes Assistive Devices: Walker Review of Systems 2 Review of Systems: All systems reviewed & are unremarkable except as noted in HPI & below Physical Exam 2 Physical Exam: Constitutional: No acute distress, frail-appearing HEENT: EOMI, PERRLA Respiratory system: Decreased air entry bilaterally, no wheeze, no rhonchi, positive crackles left lower lobe CVS: S1-S2 positive, no murmurs or gallops Abdomen: Soft, nontender, nondistended, positive bowel sounds x4 Extremities: +2 pulses bilaterally radialis/ dorsalis pedis, no cyanosis, +1 pitting pedal edema bilaterally Neuro: Awake alert oriented x3 Psych: Normal mood and affect G/U: No B[place] Skin: no rashes, warm and dry Lymphatic: no cervical or axillary lymphadenopathy Results & Data Results & Data Vital Signs (Past 12 Hours) Vital Signs Temp Pulse Pulse Pulse Resp BP BP 04/27/24 07:32 58 L 18 04/27/24 07:09 36.6 C 56 L 18 100/67 04/27/24 03:07 76 04/27/24 02:54 04/27/24 02:23 36.8 C 69 20 100/68 04/27/24 01:45 77 16 102/73 04/27/24 01:30 90 16 92/74 L 04/27/24 01:15 76 14 97/75 L 04/27/24 01:00 75 16 96/75 L 04/27/24 00:45 62 16 97/73 L 04/27/24 00:30 59 L 16 101/74 04/27/24 00:15 58 L 14 90/64 L 04/27/24 00:00 57 L 14 78/56 L 04/26/24 23:45 57 L 16 86/66 L 04/26/24 23:36 77 14 04/26/24 23:30 63 16 94/70 L 04/26/24 23:15 65 16 94/68 L 04/26/24 22:36 76 04/26/24 22:24 04/26/24 22:24 04/26/24 22:24 35.6 C L 91 H 17 90/77 L Pulse Ox O2 Del Method O2 Flow Rate FiO2 04/27/24 07:32 100 Oxymask 6 04/27/24 07:09 100 Oxymask 6 04/27/24 03:07 04/27/24 02:54 Oxymask 6 04/27/24 02:23 100 Oxymask 6 04/27/24 01:45 94 Oxymask 6 04/27/24 01:30 95 Oxymask 6 04/27/24 01:15 96 BiPAP 04/27/24 01:00 100 BiPAP 04/27/24 00:45 100 BiPAP 04/27/24 00:30 100 BiPAP 04/27/24 00:15 100 BiPAP 04/27/24 00:00 100 CPAP 50 04/26/24 23:45 100 BiPAP 50 04/26/24 23:36 99 50 04/26/24 23:30 100 BiPAP 04/26/24 23:15 100 BiPAP 04/26/24 22:36 04/26/24 22:24 BiPAP 04/26/24 22:24 BiPAP 04/26/24 22:24 98 BiPAP Laboratory Results 04/27/24 06:19 04/27/24 06:19 PG Care Time/CCT Total # of Minutes Spent Total Time Spent with Patient: Total time spent is greater than 50% in coordination of care (as documented) at patient's floor/unit and/or counseling patient: Coding Level of Care Code 63674 INT INP/OBS CARE 3/75MIN Diagnoses Acute on chronic respiratory failure with hypoxia J96.21 Severe protein-calorie malnutrition E43 Mycobacterium avium complex A31.0 Emphysema lung J43.9 Multifocal pneumonia J18.9 Bronchiectasis J47.9 Cachexia associated with AIDS B20; E88.A
--- NOTE | 2024-04-27 08:35 | XRay Report ---
XR chest 1V portable HISTORY: 43 years-old Male Sepsis COMPARISON: Chest CT 04/27/2024 TECHNIQUE: AP view of the chest FINDINGS: Right IJ [id number] catheter. Heart size is normal. There are a few calcified right-sided pleural plaques noted. Emphysema with chronic interstitial coarsening redemonstrated. The bones appear grossl y intact. IMPRESSION: Emphysema with similar appearance of the chronic interstitial coarsening. Please refer to the same day chest CT for additional findings. ACT 112: Negative or not required by law. The above report was generated using voice recognition software. It may contain grammatical, syntax o r spelling errors. Electronically signed by: Rashid Nunez M.D. 04/27/2024 8:32 AM
[2024-04-27] MEDS: EMTRICITABINE/TENOFOVIR TAB PO SCH (08:37)
[2024-04-27] MEDS: MIDODRINE HCL 2.5 MG TAB PO SCH (08:37)
[2024-04-27] MEDS: PYRIDOXINE HCL 50 MG TAB PO SCH (08:37)
[2024-04-27] MEDS: SULFAMETHOXAZOLE/TRIMETHOPRIM DS 800/160MG TAB PO SCH (08:38)
[2024-04-27] MEDS: ADVANCED PROBIOTIC 625 MG CAPSULE PO SCH (08:38)
[2024-04-27] MEDS: ETHAMBUTOL HCL 400 MG TAB PO SCH (08:39)
[2024-04-27] MEDS: MULTIVITAMIN TAB PO SCH (08:39)
[2024-04-27] MEDS: FOLIC ACID 1 MG TAB PO SCH (08:39)
[2024-04-27] MEDS: DOLUTEGRAVIR SODIUM 50 MG TAB PO SCH (08:40)
[2024-04-27] MEDS: CHOLECALCIFEROL 25 MCG (1000 UNITS) TAB PO SCH (08:40)
[2024-04-27] MEDS: UMECLIDINIUM BROMIDE 62.5MCG/BLISTER 7 PUFFS/INHALER INH SCH (08:41)
[2024-04-27] MEDS: BRIMONIDINE TARTRATE-P 0.15% 5 ML BTL OPL SCH (08:42)
[2024-04-27] MEDS: ENOXAPARIN INJ 30 MG/0.3 ML SYR SQ SCH (08:43)
[2024-04-27] MEDS: ETHAMBUTOL HCL 100 MG PO SCH (08:44)
[2024-04-27] MEDS: guaiFENesin 600 MG TABCR PO SCH (08:59)
[2024-04-27] MEDS ORDERED: [UNRECOGNIZED DRUG - OTHER] TOP SCH (09:00)
[2024-04-27] MEDS ORDERED: VITAMIN E TOP SCH (09:00)
[2024-04-27] MEDS ORDERED: EMTRICITABINE/TENOFOVIR TAB PO SCH (09:00)
[2024-04-27] MEDS: CHOLESTYRAMINE LIGHT 4 GM PKT PO SCH (09:04)
[2024-04-27] MEDS: HYDROCORTISONE SOD 100 MG in SYRINGE 0 ML IV SCH (09:05)
--- NOTE | 2024-04-27 10:36 | Pharmacy Report ---
Pharmacy PK ABX Note - Date of Service April 27, 2024 - Assessment and Plan Assessment 43 year old M receiving IV amikacin for treatment of chronic MAC infection. Spoke with [facility] RN today, dosing/regimen verified. Patient is receiving amikacin 1200mg (~23mg/kg/dose) IV daily on . Last dose was 04/25 @ 0837. Therapy was initiated by [facility] program medical director Dr. Ascencion Powers (being managed by Dr. Powers) on 04/21/24. Regimen was recommended by [place] KATIE. Confirmed that no levels have been drawn since therapy initiated. Patient with KEERTHI currently (SCr 1.67-->1.45), baseline ~ 1mg/dl. Day #7 of antimicrobial therapy. Plan Amikacin * Will obtain a trough level tomorrow AM (target trough <5mcg/mL) - level is a sendout so will not be immediately available for clinical decision making. * Assess renal function in AM - if returns to baseline, consider resuming home dose and obtaining a peak 30 mins after the infusion completed. * Consider obtaining records from [facility] ID tomorrow. Pharmacy will continue to follow and will adjust dose/frequency as necessary. Thank you.
[2024-04-27] MEDS: PANTOprazole 40 MG in SYRINGE 0 ML IV SCH (11:12)
[2024-04-27] MEDS: DOXYCYCLINE HYCLATE 100 MG CAP PO SCH (11:39)
--- NOTE | 2024-04-27 12:31 | Electrocardiogram Report ---
Test Reason : Blood Pressure : */* mmHG Vent. Rate : 78 BPM Atrial Rate : 78 BPM P-R Int : 152 ms QRS Dur : 70 ms QT Int : 388 ms P-R-T Axes : 82 -14 74 degrees QTcB Int : 442 ms Normal sinus rhythm Low voltage QRS Borderline ECG When compared with ECG of 01-Feb-2024 10:00, No significant change was found Confirmed by Gopi Alarcon ([id number]) on 04/27/2024 12:31:19 PM Referred By: [facility] Confirmed By: Gopi Alarcon
[2024-04-27] MEDS ORDERED: AZITHROMYCIN 500 MG in DEXTROSE 5% 250 ML IV SCH (13:00)
--- NOTE | 2024-04-27 16:00 | Communication Note ---
Date of Service: April 27, 2024 Please refer to the H&P dictated earlier this morning for details of presentation on admission. The patient was seen and examined by myself at 11:25 AM. In brief, this is a patient with HIV/AIDS, MAC, chronic respiratory failure, cachexia, COPD who presented with shortness of breath and was found to be hypoxic. He also had relatively low blood pressure. He was diagnosed with sepsis/acute on chronic respiratory failure. CT chest showed a new patchy opacity in the left lower lobe. Pulmonology is involved. Patient has been started on doxycycline. Continue MAC treatment. Spoke to pharmacist. Pharmacist is concerned about amikacin treatment with new acute kidney injury. Amikacin level ordered but it is a send out. Monitor clinically.
[2024-04-28 06:14] LABS: Hematocrit (blood only) 32.4 % (42.0-52.0); Hemoglobin 10.8 g/dl (14.0-18.0); Mean Corpuscular Hemoglobin 26.9 pg (25.0-34.0); Mean Corpuscular Hgb Conc 33.3 g/dL (32.0-36.0); Mean Corpuscular Volume 80.8 fL (80.0-100.0); Mean Platelet Volume 9.6 fL (9.4-12.4); Platelet Count 145 K/uL (130-400); RDW Coefficient of Variation 17.8 % (11.5-14.5); RDW Standard Deviation 51.1 fL (36.4-46.3); Red Blood Count 4.01 M/uL (4.70-6.10); White Blood Count 15.13 K/ul (4.8-10.8)
[2024-04-28 06:42] LABS: Albumin Globulin Ratio 0.8 (0.9-2); Albumin Level 2.6 gm/dl (3.4-5.0); BUN Creatinine Ratio 11.6 (10-20); Bilirubin,Total 0.2 mg/dl (0.2-1.0); Calcium 8.1 mg/dl (8.6-10.3); Creatinine Clr Calc Pharmacy 35.8 ml/min; Globulin 3.2 gm/dl (2.5-4.0); Magnesium 1.9 mg/dl (1.7-2.4); Potassium 3.2 mmol/L (3.5-5.1); Total Protein 5.8 gm/dl (6.0-8.3); Troponin I High Sensitivity 16.3 pg/ml (0-20)
[2024-04-28 06:54] LABS: Basophils # (auto) 0.02 K/uL (0.00-0.20); Basophils % (auto) 0.1 %; Eosinophils # (auto) 0.01 K/uL (0.00-0.50); Eosinophils % (auto) 0.1 %; Immature Granulocytes # (auto) 0.13 K/uL (0.01-0.20); Immature Granulocytes % (auto) 0.9 %; Lymphocytes # (auto) 0.64 K/uL (1.20-3.40); Lymphocytes % (auto) 4.2 %; Monocytes # (auto) 0.56 K/uL (0.11-0.59); Monocytes % (auto) 3.7 %; Neutrophils # (auto) 13.77 K/uL (1.40-6.50); Tear Drop Cells 1+; Toxic Vacuolation 1+
[2024-04-28 06:56] LABS: INR 0.9 (0.9-1.1); Partial Thromboplastin Ratio 1.1; Partial Thromboplastin Time 30 Seconds (21-31); Prothrombin Time 10.3 Seconds (9.0-12.0)
--- NOTE | 2024-04-28 09:04 | Pulmonology Progress Note ---
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 These he has advanced emphysematous changes and some bronchiectasis and was admitted with acute on chronic hypoxemic respiratory failure and presumed exacerbation of his bronchiectasis. Clinically improved today. Recommendations: 1. Bronchiectasis: Continue pulmonary toilet. Would complete 7-day course of oral doxycycline. He has never grown Pseudomonas so we will discontinue piperacillin/tazobactam 2. Disseminated MAC: Management per infectious disease. 3. Hypoxemia: Currently resolved. May have been secondary to mucous plugging. 4. From a bronchiectasis perspective, the patient appears to be doing well clinically. Antibiotics as noted above. He does not need to remain in the hospital from a pulmonary perspective to complete the oral antibiotics and can likely be dismissed from the hospital. Addressing CODE STATUS may be appropriate. Pulmonary will sign off at this point in time. Feel free to contact us with questions or concerns. Admission and Anticipated Discharge Date Admission Date: April 27, 2024 Subjective Patient seen and examined. EMR reviewed. Discussed with off going medical bill processor and with the patient at bedside. The patient reports he is feeling better. He is coughing less. His sputum production is less. He is not had any hemoptysis. He denies fevers chills night sweats or other constitutional symptoms. He is eating this morning. He states his appetite is returning. He overall feels like he is doing well clinically. Review of Systems 2 Review of Systems: All systems reviewed & are unremarkable except as noted in Subjective Physical Exam 2 Constitutional: + cachectic and + malnourished; no acute distress Neck: trachea midline, no thyromegaly Respiratory: no respiratory distress, no labored breathing and no cough A uscultation: no crackles and no wheezes Cardiovascular: RRR, no murmur, no edema Gastrointestinal (Abdomen): normal bowel sounds, soft, nontender, no hepatosplenomegaly Musculoskeletal: Extremities: extremities normal to inspection Skin: no rashes, warm and dry Neurologic: Nonfocal exam Lymphatic: no cervical lymphadenopathy Results & Data Results & Data Vital Signs (Past 12 Hours) Vital Signs Temp Pulse Pulse Resp BP Pulse Ox O2 Del Method 04/28/24 07:53 36.4 C L 102 H 18 105/67 100 Room Air 04/28/24 07:12 78 16 100 Room Air 04/28/24 03:03 36.5 C 92 H 14 98/70 L 100 Nasal Cannula 04/27/24 23:00 36.5 C 94 H 15 95/64 L 100 Nasal Cannula 04/27/24 21:55 87 04/27/24 21:25 Room Air Laboratory Results 04/28/24 05:53 04/28/24 05:53 Diagnostic Findings No new imaging PG Care Time/CCT Total # of Minutes Spent Total Time Spent with Patient: Total time spent is greater than 50% in coordination of care (as documented) at patient's floor/unit and/or counseling patient: Coding Level of Care Code 39816 SUB INP/OBS CARE 3/50MIN Diagnoses Bronchiectasis J47.9 Acute on chronic respiratory failure with hypoxia J96.21 Severe protein-calorie malnutrition E43 Mycobacterium avium complex A31.0
[2024-04-28] MEDS ORDERED: ALBUT/IPRATROP 3MG/0.5MG NEB 3 ML VIAL NEB PRN (11:11)
--- NOTE | 2024-04-28 11:21 | Infectious Disease Consult ---
Date of Consultation April 28, 2024 Assessment & Plan (1) Multifocal pneumonia: (2) Bronchiectasis: (3) Acute on chronic respiratory failure with hypoxia: (4) Cachexia associated with AIDS: (5) Mycobacterium avium complex: Plan This is a 43 year old man with pmh HIV/AIDS ( CD4, 142/11.9% on 04/21/24 , VL UD per report) , on Biktarvy and Bactrim prophylaxis, PJP pneumonia (2019), CMV infection, disseminated MAC infection, incomplete adherence to medications, prisoner at [facility] presents for acute shortness of breath. He was initially diagnosed with MAC infection in 11/2021 at [facility] where blood cultures grew MAC . He was started on ethambutol and azithromycin for 6 months until 07/2022. He was not adherent w/azithromycin and ethambutol from 07/2022- 06/2023 as he thought that the ethambutol may have been causing visual changes. In 05/2023 MAC grew in multiple sputum cultures. He was restarted on Ethambutol/Azithromycin. He was admitted to [facility] multiple times. He was last admitted 01/31-02/03 for abdominal distention . CTAP showed severe extrinsic compression of the main vein due to ill-defined 3.7 cm soft tissue mass and multifocal retroperitoneal and mesenteric soft tissues. 02/01/2024 peritoneal fluid grew 3+ AFB on smear and culture grew MAC (Moxifloxacin resistant, clarithromycin sensitive, amikacin IV resistant, linezolid resistant). He was transferred to [facility] 02/03-03/06 for further management for chylous ascites. His ill-defined retroperitoneal mass was biopsied and was negative for malignancy/lymphoma. He had rapid re-accumulation of ascites and required a tunneled ascites catheter. 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 AFB stain 4+ AFB, cultures grew MAC, ascites fluid PCR positive for Estrella albicans . Given interruptions in treatment and possible monotherapy with azithromycin there was concern for possible resistant MAC. Also with his high burden of MAC , the decision was made to treat him with a 4 drug regimen in 02/2024 until sensitivities were back. He was started on azithromycin, ethambutol, levofloxacin and rifabutin pending sensitivities. He completed 2 weeks of treatment for fungal ascites. His MAC/HIV is being treated at [facility] in conjunction with [facility] ( Dr Tse) per report. He is currently on Tedezolid, Rifabutin, Ethambutol and Amikacin. Amikacin was started last week. It is unclear if pt has recent mycobacterium sensitivities available and if medication changes were made based on these results In the ED temperature 35.6, HR 91, RR 17, BP 90/71, O2 sats 98% on BiPAP. Labs WBC 14.41, platelets 136, BUN 20, creatinine 1.45. Respiratory viral panel negative. Chest x-ray shows Emphysema with chronic interstitial coarsening. On CT chest there is a focus of groundglass opacity of the left lower lobe concerning for atypical infection. Emphysema is noted. He was continued on Biktarvy, bactrim, ethambutol. Amikacin held as KEERTHI and levels pending. Tedizolid and Rifabutin not available her and pending receipt of his meds from his facility. ID consulted for hypoxia , HiV, MAC infection . On my initial exam he is comfortable and on RA. His shortness of breath has improved. He denies fever, chills, sweats, cough, nausea, rash, visual changes, night sweats, vomiting or abdominal pain or drainage. He admits to sick contacts in the assisted. 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 He is now back to his baseline and is now on room air. Unclear cause of changes in his CT chest. Could be secondary to bacterial pneumonia, atypical infections in an immunocompromised patient including PJP/fungal infections. Could also represent progression of his MAC, but less likely as he improved quickly. At this time it is unclear what the sensitivity of his most recent MAC samples. Based on the 01/31/ascites fluid there is resistance to rosa quinolones as well as amikacin. Clarithromycin seems to be sensitive however he is not on azithromycin. He remains on amikacins. Will need to get additional information from his ID provider to clarify his MAC regimen. Recommendations - Continue Biktarvy - continue bactrim ppx - Hold ethambutol as he is unable to take all his MAC therapy ( rifabutin/tedozolid unavailable, pending his facility providing tomorrow). Will restart once all medication available. Concern if he continues on partial regimen, will develop further resistance - Amikacin on hold pending levels in setting of KEERTHI ( Amikacin newly started last week, need more info from his ID doc, unclear MAC is S based on prior testi ng) -ordered Crypto ag, PJP sputum, histo urine ag, fungitell - Continue Doxycycline and zosyn - Pending additional information on his MAC regimen, MAC susceptibility from his ID doc ( Dr. Tse) D/W hospitalist, pharmacist, hospitalist supervisor painting department re plan and obtaining additional micro/medication/ID info. Reviewed available records from [facility] admission 02/04/24-03/06/24) Thank you for this consult. ID will continue to follow Aisha Elmore MD, MPH Infectious Disease [facility], ID Division Call [phone] with questions Consultation Information Consultation was provided via telemedicine using two-way real-time interactive telecommunication between the patient and the telemedicine provider. For the duration of the visit, the provider was performing the assessment from a different facility than the patient. This includesuse of bluetooth stethoscope forauscultationperformed by the telepresenter that the telemedicine provider can hear if described in the physical exam. District Sales Manager contact information: Please call [facility] Call Center [phone]. (Phone Number For Physician Use Only) After establishing a telemedicine visit, patient was: Patient was verified with two unique identifiers Time Spent with Patient: Initial => 75 min History of Present Illness Reason for Consultation: HIV, MAC, Hypoxia Requesting Physician: Ru Durand MD Attending Physician: Timur Carter MD History of Present Illness ttnay multiple times. He was last admitted 01/31-02/03 for abdominal distention . CTAP showed severe extrinsic compression of the main vein due to ill-defined 3.7 cm soft tissue mass and multifocal retroperitoneal and mesenteric soft tissues. 02/01/2024 peritoneal fluid grew 3+ AFB on smear and culture grew MAC (Moxifloxacin resistant, clarithromycin sensitive, amikacin IV resistant, linezolid resistant). He was transferred to [facility] 02/03-03/06 for further management for chylous ascites. His ill-defined retroperitoneal mass was biopsied and was negative for malignancy/lymphoma. He had rapid re-accumulation of ascites and required a tunneled ascites catheter. 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 AFB stain 4+ AFB, cultures grew MAC, as cites fluid PCR positive for Estrella albicans . Given interruptions in treatment and possible monotherapy with azithromycin there was concern for possible resistant MAC. Also with his high burden of MAC , the decision was made to treat him with a 4 drug regimen in 02/2024 until sensitivities were back. He was started on azithromycin, ethambutol, levofloxacin and rifabutin pending sensitivities. He completed 2 weeks of treatment for fungal ascites. His MAC/HIV is being treated at [facility] in conjunction with [facility] ( Dr Tse) per report. He is currently on Tedezolid, Rifabutin, Ethambutol and Amikacin. Amikacin was started last week. It is unclear if pt has recent mycobacterium sensitivities available and if medication changes were made based on these results In the ED temperature 35.6, HR 91, RR 17, BP 90/71, O2 sats 98% on BiPAP. Labs WBC 14.41, platelets 136, BUN 20, creatinine 1.45. Respiratory viral panel negative. Chest x-ray shows Emphysema with chronic interstitial coarsening. On CT chest there is a focus of groundglass opacity of the left lower lobe concerning for atypical infection. Emphysema is noted. He was continued on Biktarvy, bactrim, ethambutol. Amikacin held as KEERTHI and levels pending. Tedizolid and Rifabutin not available her and pending receipt of his meds from his facility. ID consulted for hypoxia , HiV, MAC infection . On my initial exam he is comfortable and on RA. His shortness of breath has improved. He denies fever, chills, sweats, cough, nausea, rash, visual changes, night sweats, vomiting or abdominal pain or drainage. He admits to sick contacts in the assisted. Allergies Allergy/AdvReac Type Severity Reaction Status Date / Time No Known Allergies Allergy Verified 04/03/24 11:16 Home Medications Medication Instructions Recorded Confirmed Type A&D Ointment 1 applic topical DAILY 02/01/24 04/27/24 History Lactobacillus acidophilus 0 mg PO BID 02/01/24 04/27/24 History (Acidophilus capsule) Robitussin Max Stren 100/5ml 15 ml PO QID PRN .cough 02/01/24 04/27/24 History Vitamin E Lotion 1 applic topical TID 02/01/24 04/27/24 History acetaminophen 325 mg tablet 650 mg PO QID PRN Pain 02/01/24 04/27/24 History (Tylenol) brimonidine 0.15 % eye drops 1 drp OPL BID 02/01/24 04/27/24 History cholecalciferol (vitamin D3) 25 25 mcg PO DAILY 02/01/24 04/27/24 History mcg (1,000 unit) tablet (Vitamin D3) cholestyramine (with sugar) 4 gram 4 g PO BID 02/01/24 04/27/24 History powder for susp in a packet (Questran) difluprednate 0.05 % eye drops 1 drp OPL .6XSDAY 02/01/24 04/27/24 History difluprednate 0.05 % eye drops 1 drp OPR BID 02/01/24 04/27/24 History ergocalciferol (vitamin D2) 1,250 1,250 mcg PO .WEEKLY 02/01/24 04/27/24 History mcg (50,000 unit) capsule (Vitamin D2) ethambutol 100 mg tablet 50 mg PO DAILY 02/01/24 04/27/24 History ethambutol 400 mg tablet 800 mg PO DAILY 02/01/24 04/27/24 History loperamide 2 mg tablet (Imodium 2 mg PO TID PRN Diarrhea 02/01/24 04/27/24 History A-D) midodrine 5 mg tablet 5 mg PO BID 02/01/24 04/27/24 History multivitamin 1 tab PO DAILY 02/01/24 04/27/24 History sulfamethoxazole 800 1 tab PO DAILY 02/01/24 04/27/24 History mg-trimethoprim 160 mg tablet (Bactrim DS) umeclidinium 62.5 mcg/actuation 1 inh inhalation DAILY 02/01/24 04/27/24 History blister powder for inhalation (Incruse Ellipta) amikacin 250 mg/mL injection 1,200 mg IV 3XWK 04/27/24 04/27/24 History solution dolutegravir 50 mg tablet (Tivicay) 50 mg PO BID 04/27/24 04/27/24 History emtricitabine 200 mg-tenofovir 1 tab PO BID 04/27/24 04/27/24 History disoproxil fumarate 300 mg tablet (Truvada) enoxaparin 30 mg/0.3 mL 30 mg subcut 1XD 04/27/24 04/27/24 History subcutaneous solution folic acid 1 mg tablet 1 mg PO DAILY 04/27/24 04/27/24 History pantoprazole 40 mg tablet,delayed 40 mg PO DAILY 04/27/24 04/27/24 History release pyridoxine (vitamin B6) 50 mg 50 mg PO DAILY 04/27/24 04/27/24 History tablet rifabutin 150 mg capsule 300 mg PO DAILY 04/27/24 04/27/24 History tedizolid 200 mg tablet (Sivextro) 200 mg PO DAILY 04/27/24 04/27/24 History Patient History Medical History Diarrhea Hyperlipemia Iron deficiency anemia Vitamin D deficiency Social History Smoking Status: Unknown if ever smoked Second Hand Exposure: No; Do You Dip or Chew Tobacco: No; Hx Alcohol Use: No Hx Substance Use: No Preferred Language: Kyrgyz Communication Ability: Effective Printmaker Required: No Beliefs That Will Affect Care: None Current Living Situation: Other Current Living Situation Comment: [facility] Feels Safe at Home: Yes Assistive Devices: Walker Review of System A 10 point ROS obtained. Pertinent positives as per HPI. Physical Exam Physical Exam: Gen- cachectic, chronically ill apearing with muscle wasting, NAD, comfortable on RA Neck- Supple Lungs- clear to auscultation No increased work of breathing RIJ port. Not tender Skin - No rash, wounds Abdomen- soft , not tender, RLQ tunneled catheterdrain in place- No draining, MSK- muscle atrophy Cardiac- RRR Extremities- No edema, handcuffed on R wrist and L ankle Neuro-AAO times 3 Psych- cooperative Results & Data Vital Signs (Past 12 Hours) Vital Signs Temp Pulse Pulse Resp BP Pulse Ox O2 Del Method 04/28/24 11:11 36.5 C 76 18 92/54 L 99 Room Air 04/28/24 09:46 92 H 04/28/24 09:31 Room Air 04/28/24 07:53 36.4 C L 102 H 18 105/67 100 Room Air 04/28/24 07:12 78 16 100 Room Air 04/28/24 03:03 36.5 C 92 H 14 98/70 L 100 Nasal Cannula Laboratory Results Laboratory Results - last 48 hr 04/26/24 04/26/24 04/26/24 22:35 22:43 22:58 WBC 8.79 RBC 5.80 Hgb 15.5 POC Hgb 17.7 Hct 48.0 POC Hct 52 MCV 82.8 MCH 26.7 MCHC 32.3 RDW Std Deviation 52.8 H RDW Coeff of Brody 19.1 H Plt Count 169 MPV 9.1 L Immature Gran % (Auto) 0.7 Neut % (Auto) 86.1 Lymph % (Auto) 9.2 [place] % (Auto) 3.3 Eos % (Auto) 0.5 Baso % (Auto) 0.2 Neut # (Auto) 7.57 H Lymph # (Auto) 0.81 L [place] # (Auto) 0.29 Eos # (Auto) 0.04 Baso # (Auto) 0.02 Immature Gran # (Auto) 0.06 Toxic Vacuolation Tear Drop Cells PT 10.5 INR 1.0 APTT 30 PTT Ratio 1.1 VBG pH 7.29 L VBG pCO2 45 VBG pO2 33 VBG HCO3 22 VBG O2 Saturation < 60.0 VBG Base Excess -5.0 POC Sodium 136 Sodium 133 L POC Potassium 4.1 Potassium 4.1 POC Chloride 108 Chloride 107 Carbon Dioxide 21 POC Total CO2 20 L Anion Gap 5 POC Anion Gap 13.0 L POC BUN 26 H BUN 22 Creatinine 1.67 H POC Creatinine 1.7 H Est Cr Clr Drug Dosing 42.2 eGFR 52.41 BUN/Creatinine Ratio 13.2 Glucose 79 POC Glucose (other) 83 Lactate 1.3 Calcium 8.0 L POC Ioniz Calcium Cash 1.04 L Magnesium 1.9 Total Bilirubin 0.2 Direct Bilirubin 0.1 AST 41 H ALT 33 Alkaline Phosphatase 155 H Lactate Dehydrogenase Troponin I High Sens 25.8 H Total Protein 6.8 Albumin 2.5 L Globulin Albumin/Globulin Ratio [id number] Procalcitonin 1.73 H Random Cortisol Urine Color Urine Appearance Urine pH Ur Specific [place] Urine Protein Urine Glucose (UA) Urine Ketones Urine Blood Urine Nitrite Urine Bilirubin Urine Urobilinogen Ur Leukocyte Esterase Urine WBC (Auto) Urine RBC (Auto) U Hyaline Cast (Auto) U Epithel Cells (Auto) Urine Bacteria (Auto) Calcium Oxalate Crystal Amorphous Sediment Granular Casts Nasal Screen MRSA (PCR) Negative Adenovirus (PCR) Not Detected B. pertussis DNA (PCR) Not Detected B.parapertussis DNA PCR Not Detected C. pneumoniae DNA (PCR) Not Detected Coronavirus OC43 (PCR) Not Detected Coronavirus HKU1 (PCR) Not Detected Coronavirus 229E (PCR) Not Detected SARS-CoV-2 (PCR) Not Detected Coronavirus NL63 (PCR) Not Detected Human Metapneumovir PCR Not Detected Influenza Type A (PCR) Not Detected Influenza Type B (PCR) Not Detected M. pneumoniae (PCR) Not Detected Parainfluenza 1 (PCR) Not Detected Parainfluenza 2 (PCR) Not Detected Parainfluenza 3 (PCR) Not Detected Parainfluenza 4 (PCR) Not Detected RSV (PCR) Not Detected Entero/Rhino (PCR) Not Detected 04/27/24 04/27/24 04/27/24 00:28 06:19 Unknown WBC 14.41 H RBC 4.12 L Hgb 11.0 L D POC Hgb Hct 33.8 L POC Hct MCV 82.0 MCH 26.7 MCHC 32.5 RDW Std Deviation 51.2 H RDW Coeff of Brody 17.4 H Plt Count 136 MPV 9.4 Immature Gran % (Auto) 0.6 Neut % (Auto) 93.2 Lymph % (Auto) 4.0 [place] % (Auto) 1.7 Eos % (Auto) 0.2 Baso % (Auto) 0.3 Neut # (Auto) 13.44 H Lymph # (Auto) 0.57 L [place] # (Auto) 0.24 Eos # (Auto) 0.03 Baso # (Auto) 0.04 Immature Gran # (Auto) 0.09 Toxic Vacuolation Tear Drop Cells PT 10.7 INR 1.0 APTT 32 H PTT Ratio 1.2 VBG pH VBG pCO2 VBG pO2 VBG HCO3 VBG O2 Saturation VBG Base Excess POC Sodium Sodium 134 L POC Potassium Potassium 4.0 POC Chloride Chloride 109 H Carbon Dioxide 19 L POC Total CO2 Anion Gap 6 POC Anion Gap POC BUN BUN 20 Creatinine 1.45 H POC Creatinine Est Cr Clr Drug Dosing 48.6 eGFR 62.09 BUN/Creatinine Ratio 13.8 Glucose 79 POC Glucose (other) Lactate Calcium 7.6 L POC Ioniz Calcium Cash Magnesium 1.8 Total Bilirubin 0.2 Direct Bilirubin AST 23 ALT 21 Alkaline Phosphatase 106 H Lactate Dehydrogenase 142 Troponin I High Sens 69.0 H* D 87.2 H* D Total Protein 5.7 L Albumin 2.7 L Globulin 3.0 Albumin/Globulin Ratio 0.9 [id number] Procalcitonin Random Cortisol 16.24 Urine Color Yellow Urine Appearance Turbid A Urine pH 5.0 Ur Specific [place] 1.020 Urine Protein 1+ H Urine Glucose (UA) Negative Urine Ketones Negative Urine Blood 3+ H Urine Nitrite Negative Urine Bilirubin Negative Urine Urobilinogen Negative Ur Leukocyte Esterase 1+ H Urine WBC (Auto) 0-5 Urine RBC (Auto) >20 H U Hyaline Cast (Auto) >20 H U Epithel Cells (Auto) 6-10 H Urine Bacteria (Auto) None Seen Calcium Oxalate Crystal Present A Amorphous Sediment Present A Granular Casts Present A Nasal Screen MRSA (PCR) Adenovirus (PCR) B. pertussis DNA (PCR) B.parapertussis DNA PCR C. pneumoniae DNA (PCR) Coronavirus OC43 (PCR) Coronavirus HKU1 (PCR) Coronavirus 229E (PCR) SARS-CoV-2 (PCR) Coronavirus NL63 (PCR) Human Metapneumovir PCR Influenza Type A (PCR) Influenza Type B (PCR) M. pneumoniae (PCR) Parainfluenza 1 (PCR) Parainfluenza 2 (PCR) Parainfluenza 3 (PCR) Parainfluenza 4 (PCR) RSV (PCR) Entero/Rhino (PCR) 04/28/24 05:53 WBC 15.13 H RBC 4.01 L Hgb 10.8 L POC Hgb Hct 32.4 L POC Hct MCV 80.8 MCH 26.9 MCHC 33.3 RDW Std Deviation 51.1 H RDW Coeff of Brody 17.8 H Plt Count 145 MPV 9.6 Immature Gran % (Auto) 0.9 Neut % (Auto) 91.0 Lymph % (Auto) 4.2 [place] % (Auto) 3.7 Eos % (Auto) 0.1 Baso % (Auto) 0.1 Neut # (Auto) 13.77 H Lymph # (Auto) 0.64 L [place] # (Auto) 0.56 Eos # (Auto) 0.01 Baso # (Auto) 0.02 Immature Gran # (Auto) 0.13 Toxic Vacuolation 1+ Tear Drop Cells 1+ PT 10.3 INR 0.9 APTT 30 PTT Ratio 1.1 VBG pH VBG pCO2 VBG pO2 VBG HCO3 VBG O2 Saturation VBG Base Excess POC Sodium Sodium 137 POC Potassium Potassium 3.2 L POC Chloride Chloride 110 H Carbon Dioxide 19 L POC Total CO2 Anion Gap 8 POC Anion Gap POC BUN BUN 23 Creatinine 1.98 H D POC Creatinine Est Cr Clr Drug Dosing 35.8 eGFR 42.72 BUN/Creatinine Ratio 11.6 Glucose 131 H POC Glucose (other) Lactate Calcium 8.1 L POC Ioniz Calcium Cash Magnesium 1.9 Total Bilirubin 0.2 Direct Bilirubin AST 17 ALT 21 Alkaline Phosphatase 103 Lactate Dehydrogenase Troponin I High Sens 16.3 D Total Protein 5.8 L Albumin 2.6 L Globulin 3.2 Albumin/Globulin Ratio 0.8 L Wigat-6-[id number] Cancelled Procalcitonin Random Cortisol Urine Color Urine Appearance Urine pH Ur Specific [place] Urine Protein Urine Glucose (UA) Urine Ketones Urine Blood Urine Nitrite Urine Bilirubin Urine Urobilinogen Ur Leukocyte Esterase Urine WBC (Auto) Urine RBC (Auto) U Hyaline Cast (Auto) U Epithel Cells (Auto) Urine Bacteria (Auto) Calcium Oxalate Crystal Amorphous Sediment Granular Casts Nasal Screen MRSA (PCR) Adenovirus (PCR) B. pertussis DNA (PCR) B.parapertussis DNA PCR C. pneumoniae DNA (PCR) Coronavirus OC43 (PCR) Coronavirus HKU1 (PCR) Coronavirus 229E (PCR) SARS-CoV-2 (PCR) Coronavirus NL63 (PCR) Human Metapneumovir PCR Influenza Type A (PCR) Influenza Type B (PCR) M. pneumoniae (PCR) Parainfluenza 1 (PCR) Parainfluenza 2 (PCR) Parainfluenza 3 (PCR) Parainfluenza 4 (PCR) RSV (PCR) Entero/Rhino (PCR) Diagnostic Findings Microbiology 04/26/24 22:58 Blood Aerobic Blood Culture - Preliminary No growth in Aerobic bottle after 24 hours. 04/26/24 22:58 Blood Anaerobic Blood Culture - Preliminary No growth in Anaerobic bottle after 24 hours. 04/26/24 22:35 Blood Aerobic Blood Culture - Preliminary No growth in Aerobic bottle after 24 hours. 04/26/24 22:35 Blood Anaerobic Blood Culture - Preliminary No growth in Anaerobic bottle after 24 hours. Medications Administered Home Medications Medication Instructions Recorded Confirmed Last Taken A&D Ointment 1 applic topical DAILY 02/01/24 04/27/24 Unknown Lactobacillus acidophilus 0 mg PO BID 02/01/24 04/27/24 1 Day Ago (Acidophilus capsule) ~04/26/24 Robitussin Max Stren 100/5ml 15 ml PO QID PRN .cough 02/01/24 04/27/24 1 Day Ago ~04/26/24 Vitamin E Lotion 1 applic topical TID 02/01/24 04/27/24 Unknown acetaminophen 325 mg tablet 650 mg PO QID PRN Pain 02/01/24 04/27/24 1 Day Ago (Tylenol) ~04/26/24 brimonidine 0.15 % eye drops 1 drp OPL BID 02/01/24 04/27/24 Unknown cholecalciferol (vitamin D3) 25 25 mcg PO DAILY 02/01/24 04/27/24 1 Day Ago mcg (1,000 unit) tablet (Vitamin ~04/26/24 D3) cholestyramine (with sugar) 4 gram 4 g PO BID 02/01/24 04/27/24 1 Day Ago powder for susp in a packet ~04/26/24 (Questran) difluprednate 0.05 % eye drops 1 drp OPL .6XSDAY 02/01/24 04/27/24 1 Day Ago ~04/26/24 difluprednate 0.05 % eye drops 1 drp OPR BID 02/01/24 04/27/24 1 Day Ago ~04/26/24 ergocalciferol (vitamin D2) 1,250 1,250 mcg PO .WEEKLY 02/01/24 04/27/24 1 Day Ago mcg (50,000 unit) capsule (Vitamin ~04/26/24 D2) ethambutol 100 mg tablet 50 mg PO DAILY 02/01/24 04/27/24 1 Day Ago ~04/26/24 ethambutol 400 mg tablet 800 mg PO DAILY 02/01/24 04/27/24 1 Day Ago ~04/26/24 loperamide 2 mg tablet (Imodium 2 mg PO TID PRN Diarrhea 02/01/24 04/27/24 Unknown A-D) midodrine 5 mg tablet 5 mg PO BID 02/01/24 04/27/24 1 Day Ago ~04/26/24 multivitamin 1 tab PO DAILY 02/01/24 04/27/24 1 Day Ago ~04/26/24 sulfamethoxazole 800 1 tab PO DAILY 02/01/24 04/27/24 1 Day Ago mg-trimethoprim 160 mg tablet ~04/26/24 (Bactrim DS) umeclidinium 62.5 mcg/actuation 1 inh inhalation DAILY 02/01/24 04/27/24 1 Day Ago blister powder for inhalation ~04/26/24 (Incruse Ellipta) amikacin 250 mg/mL injection 1,200 mg IV 3XWK 04/27/24 04/27/24 04/25/24 solution dolutegravir 50 mg tablet (Tivicay) 50 mg PO BID 04/27/24 04/27/24 1 Day Ago ~04/26/24 emtricitabine 200 mg-tenofovir 1 tab PO BID 04/27/24 04/27/24 1 Day Ago disoproxil fumarate 300 mg tablet ~04/26/24 (Truvada) enoxaparin 30 mg/0.3 mL 30 mg subcut 1XD 04/27/24 04/27/24 1 Day Ago subcutaneous solution ~04/26/24 folic acid 1 mg tablet 1 mg PO DAILY 04/27/24 04/27/24 1 Day Ago ~04/26/24 pantoprazole 40 mg tablet,delayed 40 mg PO DAILY 04/27/24 04/27/24 1 Day Ago release ~04/26/24 pyridoxine (vitamin B6) 50 mg 50 mg PO DAILY 04/27/24 04/27/24 1 Day Ago tablet ~04/26/24 rifabutin 150 mg capsule 300 mg PO DAILY 04/27/24 04/27/24 1 Day Ago ~04/26/24 tedizolid 200 mg tablet (Sivextro) 200 mg PO DAILY 04/27/24 04/27/24 1 Day Ago ~04/26/24 Active Medications Generic Name Dose Route Start Last Admin Trade Name Freq PRN Reason Stop Dose Admin Brimonidine Tartrate 1 drops 04/27/24 09:00 04/28/24 08:56 Brimonidine Tartrate-P 0.15% 5 Ml Btl OPL 05/27/24 08:59 1 drops BID JANES Administration Cholestyramine Resin 4 gm 04/27/24 10:00 04/28/24 09:08 Cholestyramine Light 4 Gm Pkt PO 05/27/24 09:59 Not Given BID@1000,2200 JANES Dolutegravir Sodium 50 mg 04/27/24 09:00 04/28/24 09:00 Dolutegravir Sodium 50 Mg Tab PO 05/27/24 08:59 50 mg BID JANES Administration Protocol Doxycycline Hyclate 100 mg 04/27/24 09:45 04/28/24 09:00 Doxycycline Hyclate 100 Mg Cap PO 05/03/24 23:59 100 mg BID JANES Administration Emtricitabine/Tenofovir 1 tab 04/27/24 09:00 04/28/24 09:04 Emtricitabine/Tenofovir Tab PO 05/27/24 08:59 1 tab QAM JANES Administration Protocol Enoxaparin Sodium 30 mg 04/27/24 09:00 04/28/24 09:05 Enoxaparin Inj 30 Mg/0.3 Ml Syr SQ 05/27/24 08:59 Not Given QAM JANES Ethambutol HCl 50 mg 04/27/24 09:00 04/28/24 09:05 Ethambutol Hcl 100 Mg Tab PO 05/27/24 08:59 50 mg DAILY JANES Administration Ethambutol HCl 800 mg 04/27/24 09:00 04/28/24 09:06 Ethambutol Hcl 400 Mg Tab PO 05/27/24 08:59 800 mg DAILY JANES Administration Folic Acid 1 mg 04/27/24 09:00 04/28/24 09:02 Folic Acid 1 Mg Tab PO 05/27/24 08:59 1 mg DAILY JANES Administration Guaifenesin 600 mg 04/27/24 09:00 04/28/24 08:58 Guaifenesin 600 Mg Tabcr PO 05/27/24 08:59 Not Given Q12 JANES Hydrocortisone Sodium 2 mls @ 4 mls/min 04/27/24 10:00 04/28/24 03:04 Succinate 100 mg/ Syringe IV 05/27/24 08:59 4 mls/min Q8H JANES Administration Pantoprazole Sodium 40 mg/ 10 mls @ 5 mls/min 04/27/24 11:00 04/27/24 11:12 Syringe IV 05/27/24 10:59 5 mls/min DAILY@1100 JANES Administration Lactobacillus Acidophilus 625 mg 04/27/24 09:00 04/28/24 09:04 Advanced Probiotic 625 Mg Capsule PO 05/27/24 08:59 625 mg BID JANES Administration Midodrine 5 mg 04/27/24 09:00 04/28/24 09:01 Midodrine Hcl 2.5 Mg Tab PO 05/27/24 08:59 5 mg BID@0900,1700 JANES Administration Miscellaneous 1 each 04/27/24 08:00 04/28/24 09:07 Difluprednate 0.05 % Drops - Order Awaiting Action N/A 05/27/24 07:59 Not Given QS JANES Miscellaneous 1 each 04/27/24 08:00 04/28/24 09:07 Difluprednate 0.05 % Drops - Order Awaiting Action N/A 05/27/24 07:59 Not Given QS JANES Miscellaneous 1 each 04/27/24 08:00 04/28/24 09:07 Rifabutin - Order Awaiting Action N/A 05/27/24 07:59 Not Given QS JANES Miscellaneous 1 each 04/27/24 08:00 04/28/24 09:07 Tedizolid [Sivextro] 200 Mg - Order Awaiting Action N/A 05/27/24 07:59 Not Given QS JANES Multivitamins 1 tab 04/27/24 09:00 04/28/24 09:02 Multivitamin Tab PO 05/27/24 08:59 1 tab DAILY JANES Administration Pyridoxine HCl 50 mg 04/27/24 09:00 04/28/24 09:01 Pyridoxine Hcl 50 Mg Tab PO 05/27/24 08:59 50 mg DAILY JANES Administration Trimethoprim/Sulfamethoxazole 1 tab 04/27/24 09:00 04/28/24 09:02 Sulfamethoxazole/Trimethoprim Ds 800/160mg Tab PO 05/27/24 08:59 1 tab DAILY JANES Administration Umeclidinium Robinson 1 puffs 04/27/24 09:00 04/28/24 09:07 Umeclidinium Robinson 62.5mcg/Blister 7 Puffs/Inhaler INH 05/27/24 08:59 Not Given DAILY JANES Vitamin D 25 mcg 04/27/24 09:00 04/28/24 08:57 Cholecalciferol 25 Mcg (1000 Units) Tab PO 05/27/24 08:59 25 mcg DAILY JANES Administration
--- NOTE | 2024-04-28 12:56 | Pharmacy Report ---
Pharmacy PK ABX Note - Date of Service April 28, 2024 - Assessment and Plan Assessment 04/29 * Trough level ordered this AM. Called [facility] lab and spoke jaya Mata this AM - this is a send out to [facility] results faxed to us ~2-3 hours after they receive it. [employer] had already been called and requested. Hopefully, will receive results today. * SCr increased today to 1.98 mg/dL * Discussed dosing w [facility] pharmacist (Sergo) - KEERTHI noted, but as long as trough is <4, OK to re-dose at full 1200 mg when appropriate. Plan to adjust frequency based on trough levels and dose based on peak levels. Will obtain peak level with next dose, to be drawn 30 minutes after completion of the infusion * Called lab at 1500 - no results from [facility], yet. They will fax result to us. Asked lab to monitor for result periodically tonight and call pharmacy [phone] if/when result is obtained * ID consulted - spoke w Dr. Elmore at 1530 - unclear what regimen is, but may be combo of rifabutin, tedizolid, amikacin, and ethambutol. Currently only ethambutol ordered / being administered because we're waiting on amikacin level and waiting on [facility] to bring in rifabutin and tedizolid - unclear if they have been asked to do so. Per Dr. Elmore - partial regimen likely more of a risk due to increased resistance, which is apparently already an issue for this patient with macrolide resistance. Unclear if tedizolid is part of the regimen, although it can be used for MAC. Will therefore hold amikacin tonight - Dr. Whitman in agreement. She noted intent to call [facility] and speak with the [facility] directly today. 04/28 43 year old M receiving IV amikacin for treatment of chronic MAC infection. Spoke with [facility] RN today, dosing/regimen verified. Patient is receiving amikacin 1200mg (~23mg/kg/dose) IV daily on . Last dose was 04/25 @ 0837. Therapy was initiated by [facility] medical information specialist Dr. Ascencion Powers (being managed by Dr. Powers) on 04/21/24. Regimen was recommended by [place] [facility]. Confirmed that no levels have been drawn since therapy initiated. Patient with KEERTHI currently (SCr 1.67-->1.45), baseline ~ 1mg/dl. Day #7 of antimicrobial therapy. Plan Amikacin * Goal trough < 5 mcg/mL * Goal peak for intermittent TIW dosin-80 mcg/mL * Even if/when level results tonight, will not redose amikacin as this will only likely be a partial regimen (since we do not yet have the rifabutin nor the tedizolid). Plan to re-assess tomorrow AM. Plan is to give amikacin 1200 mg IV x1 once trough is less than 4 *and* once receive the OK from ID to proceed as incomplete/partial treatment regimens may cause harm. Pharmacy will continue to follow and will adjust dose/frequency as necessary. Thank you.
--- NOTE | 2024-04-28 15:12 | Hospitalist Progress Note ---
Date of Service April 28, 2024 Assessment & Plan (1) Sepsis: (2) Acute on chronic respiratory failure with hypoxia: (3) HIV (human immunodeficiency virus infection): (4) Mycobacterium avium complex: (5) Severe protein-calorie malnutrition: (6) Intraabdominal mass: (7) Malignant ascites: (8) Cachexia associated with AIDS: (9) Hypotension: (10) Emphysema lung: Plan Acute on chronic respiratory failure with hypoxia/chronic MAC infection- Respiratory failure resolved Currently on room air Most likely related to mucous plugging Pulmonary signed off Continue amikacin IV Sunday, Sunday and Sunday Azithromycin was switched to doxycycline by pulmonary. Plan to complete a 7-day course Continue ethambutol Continue rifabutin, nonformulary, will need to bring in own Zosyn discontinued CT chest reviewed Discontinue IV hydrocortisone Hypotension- Patient is cachectic and has baseline hypotension Received IV normal saline, albumin and Plasma-Lyte in the emergency room Blood pressure stable and the patient is feeling well Discontinue IV hydrocortisone Continue to hold spironolactone Acute kidney injury- Creatinine 1.67 on admission, with base 1.0-1.1 Today creatinine is up to 1.98 On IV amikacin Amikacin trough levels ordered. It is a send out test. Hoping to get results back today Avoid nephrotoxic medications Malignant ascites Patient was recently transferred to [facility] Awaiting records from [facility] Patient says that he gets the fluid tapped once every other day. IR consulted for therapeutic paracentesis HIV/AIDS- Continue usual medications: Biktarvy, Tivicay, TDF, Sivextro, Bactrim DS DVT Prophylaxis- Continue lovenox 30mg SQ daily Admission and Anticipated Discharge Date Admission Date: April 27, 2024 Subjective Patient feels better overall. He is now on room air. Review of Systems Review of Systems: All systems reviewed & are unremarkable except as noted in Subjective Physical Exam Physical Exam: General: Awake, conversant, cachectic with intercostal and bitemporal muscle wasting Heart: S1, S2/regular rate and rhythm, no murmur rubs or gallops Lungs: Clear to auscultation bilaterally. Normal effort Abdomen: Soft/nontender/distended. Positive bowel sounds Extremities: No clubbing/cyanosis. No edema Behavior: Appropriate, cooperative Results & Data Results & Data Vital Signs (Past 12 Hours) Vital Signs Temp Pulse Pulse Resp BP Pulse Ox O2 Del Method 04/28/24 11:11 36.5 C 76 18 92/54 L 99 Room Air 04/28/24 09:46 92 H 04/28/24 09:31 Room Air 04/28/24 07:53 36.4 C L 102 H 18 105/67 100 Room Air 04/28/24 07:12 78 16 100 Room Air 04/28/24 03:03 36.5 C 92 H 14 98/70 L 100 Nasal Cannula Laboratory Results Abnormal lab results 04/28/24 Range/Units 05:53 WBC 15.13 H (4.8-10.8) K/ul RBC 4.01 L (4.70-6.10) M/uL Hgb 10.8 L (14.0-18.0) g/dl Hct 32.4 L (42.0-52.0) % RDW Std Deviation 51.1 H (36.4-46.3) fL RDW Coeff of Brody 17.8 H (11.5-14.5) % Neut # (Auto) 13.77 H (1.40-6.50) K/uL Lymph # (Auto) 0.64 L (1.20-3.40) K/uL Potassium 3.2 L (3.5-5.1) mmol/L Chloride 110 H (98-107) mmol/L Carbon Dioxide 19 L (21-32) mmol/L Creatinine 1.98 H D (0.6-1.4) mg/dl Glucose 131 H (70-99(Fasting)) mg/dl Calcium 8.1 L (8.6-10.3) mg/dl Total Protein 5.8 L (6.0-8.3) gm/dl Albumin 2.6 L (3.4-5.0) gm/dl Albumin/Globulin Ratio 0.8 L (0.9-2) PG Care Time/CCT Total # of Minutes Spent Total Time Spent with Patient: Total time spent is greater than 50% in coordination of care (as documented) at patient's floor/unit and/or counseling patient: Coding Level of Care Code 79335 SUB INP/OBS CARE 2/35MIN Diagnoses Sepsis A41.9; R65.20; J96.01 Acute respiratory failure type: with hypoxia Sepsis acute organ dysfunction status: with acute organ dysfunction Sepsis type: sepsis due to unspecified organism Severe sepsis acute organ dysfunction type: acute respiratory failure Severe sepsis shock status: without septic shock Acute on chronic respiratory failure with hypoxia J96.21 HIV (human immunodeficiency virus infection) Z21 HIV symptom status: unspecified Mycobacterium avium complex A31.0 Severe protein-calorie malnutrition E43 Intraabdominal mass R19.00 Malignant ascites R18.0 Cachexia associated with AIDS B20; E88.A Hypotension I95.9 Emphysema lung J43.9 (1) Sepsis Acute respiratory failure type: with hypoxia Sepsis acute organ dysfunction status: with acute organ dysfunction Sepsis type: sepsis due to unspecified organism Severe sepsis acute organ dysfunction type: acute respiratory failure Severe sepsis shock status: without septic shock Qualified Code(s): A41.9 - Sepsis, unspecified organism; R65.20 - Severe sepsis without septic shock; J96.01 - Acute respiratory failure with hypoxia (3) HIV (human immunodeficiency virus infection) HIV symptom status: unspecified Qualified Code(s): Z21 - Asymptomatic human immunodeficiency virus [HIV] infection status
[2024-04-28] MEDS: POTASSIUM CHLORIDE CRTAB 20 MEQ TABCR PO STA (18:04)
[2024-04-28] MEDS: SODIUM CHLORIDE 0.9% 500 ML IV ONE (18:05)
[2024-04-29 06:05] LABS: Basophils # (auto) 0.01 K/uL (0.00-0.20); Basophils % (auto) 0.1 %; Eosinophils # (auto) 0.13 K/uL (0.00-0.50); Eosinophils % (auto) 0.8 %; Hematocrit (blood only) 34.7 % (42.0-52.0); Immature Granulocytes % (auto) 0.6 %; Lymphocytes # (auto) 1.19 K/uL (1.20-3.40); Lymphocytes % (auto) 7.1 %; Mean Corpuscular Hemoglobin 26.3 pg (25.0-34.0); Mean Corpuscular Hgb Conc 31.7 g/dL (32.0-36.0); Mean Platelet Volume 9.7 fL (9.4-12.4); Monocytes # (auto) 0.92 K/uL (0.11-0.59); Monocytes % (auto) 5.5 %; Neutrophils % (auto) 85.9 %; Nucleated RBC # (auto) 0.02 K/uL (0.00-0.12); Nucleated RBC % (auto) 0.1 %; Platelet Count 174 K/uL (130-400); RDW Coefficient of Variation 18.4 % (11.5-14.5); RDW Standard Deviation 53.6 fL (36.4-46.3); Red Blood Count 4.18 M/uL (4.70-6.10); White Blood Count 16.85 K/ul (4.8-10.8)
[2024-04-29 06:12] LABS: Albumin Globulin Ratio 0.8 (0.9-2); Albumin Level 2.4 gm/dl (3.4-5.0); BUN Creatinine Ratio 9.7 (10-20); Bilirubin,Total 0.2 mg/dl (0.2-1.0); Calcium 8.3 mg/dl (8.6-10.3); Creatinine Clr Calc Pharmacy 32.7 ml/min; Globulin 3.2 gm/dl (2.5-4.0); Magnesium 1.7 mg/dl (1.7-2.4); Potassium 2.9 mmol/L (3.5-5.1); Total Protein 5.6 gm/dl (6.0-8.3)
[2024-04-29 06:19] LABS: Partial Thromboplastin Time 26 Seconds (21-31); Prothrombin Time 10.7 Seconds (9.0-12.0)
[2024-04-29] MEDS: POTASSIUM CHLORIDE CRTAB 20 MEQ TABCR PO STA (06:30)
[2024-04-29] MEDS: PANTOprazole 40 MG TAB PO SCH (10:19)
--- NOTE | 2024-04-29 13:35 | Hospitalist Progress Note ---
Date of Service April 29, 2024 Assessment & Plan (1) Sepsis: (2) Acute on chronic respiratory failure with hypoxia: (3) HIV (human immunodeficiency virus infection): (4) Mycobacterium avium complex: (5) Severe protein-calorie malnutrition: (6) Intraabdominal mass: (7) Malignant ascites: (8) Cachexia associated with AIDS: (9) Hypotension: (10) Emphysema lung: Plan Acute on chronic respiratory failure with hypoxia/chronic MAC infection- Respiratory failure resolved Currently on room air Most likely related to mucous plugging Pulmonary signed off Azithromycin was switched to doxycycline by pulmonary. Plan to complete a 7-day course Acute kidney injury Patient presented with a creatinine of 1.67. Today creatinine is at 2.16. Normal renal function at baseline Nephrology consulted. Spoke to manager nursing. Awaiting official consult note. Amikacin on hold. Amikacin level still pending Prerenal versus renal versus postrenal This could be prerenal as the patient is not drinking enough fluids. Encouraged patient to drink fluids It could be postrenal due to ascites causing obstruction. Ascitic fluid will be drained today by the nurse at the bedside. Disseminated MAC with retroperitoneal mass and recurrent ascites/HIV Patient was diagnosed with HIV in 2013. Has been on Biktarvy since 2021 Regimen changed recently to Emtricitabine plus TDF plus Dolutegravir while on rifabutin While at [facility] upon recent transfer, CT abdomen showed severe e xtrinsic compression of portal vein due to soft tissue mass and multifocal retroperitoneal and mesenteric soft tissue. Peritoneal fluid grew MAC. EGD biopsy of peripancreatic mass grew MAC. 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 A tunneled ascites drain was placed for recurrent ascites that was being accessed at the present to drain ascitic fluid. He completed a 2-week course of fluconazole to treat Estrella albicans peritonitis. Upon discharge from [facility], it was recommended to use a 4 drug regimen for MAC: Azithromycin, ethambutol, rifabutin, levofloxacin until sensitivities are back. However the regimen was changed post discharge. We are waiting for updated outpatient ID visit notes Infectious disease involved His surgical pathology and flow cytometry did not show any evidence of malignancy/lymphoma but did show evidence of MAC in the peritoneum which is likely causing his recurrent ascites. Hypotension- Patient is cachectic and has baseline hypotension Received IV normal saline, albumin and Plasma-Lyte in the emergency room Blood pressure stable and the patient is feeling well Discontinue IV hydrocortisone Continue to hold spironolactone DVT Prophylaxis- Continue lovenox 30mg SQ daily Admission and Anticipated Discharge Date Admission Date: April 27, 2024 Subjective Patient was seen at 10:30 AM. He complains of feeling like his belly is distended and it needs drained. Patient has a peritoneal drain in place. I asked the nurse to drink 2 L of ascitic fluid. Update: Recent discharge summary and infectious disease notes from [facility] obtained. Waiting for recent ID office visit or televisit note post discharge. Review of Systems Review of Systems: All systems reviewed & are unremarkable except as noted in Subjective Physical Exam Physical Exam: General: Awake, conversant, cachectic with intercostal and bitemporal muscle wasting Heart: S1, S2/regular rate and rhythm, no murmur rubs or gallops Lungs: Clear to auscultation bilaterally. Normal effort Abdomen: Soft/nontender/distended. Positive shifting dullness. Positive bowel sounds Extremities: No clubbing/cyanosis. No edema Behavior: Appropriate, cooperative Results & Data Results & Data Vital Signs (Past 12 Hours) Vital Signs Temp Pulse Pulse Resp BP BP Pulse Ox 04/29/24 12:48 97 H 04/29/24 12:00 04/29/24 11:21 36.6 C 82 18 101/78 100 04/29/24 08:09 36.9 C 95 H 18 101/71 100 04/29/24 04:01 36.4 C L 91 H 16 101/66 95 O2 Del Method 04/29/24 12:48 04/29/24 12:00 Room Air 04/29/24 11:21 Room Air 04/29/24 08:09 Room Air 04/29/24 04:01 Room Air Laboratory Results Abnormal lab results 04/29/24 Range/Units 05:28 WBC 16.85 H (4.8-10.8) K/ul RBC 4.18 L (4.70-6.10) M/uL Hgb 11.0 L (14.0-18.0) g/dl Hct 34.7 L (42.0-52.0) % MCHC 31.7 L (32.0-36.0) g/dL RDW Std Deviation 53.6 H (36.4-46.3) fL RDW Coeff of Brody 18.4 H (11.5-14.5) % Neut # (Auto) 14.50 H (1.40-6.50) K/uL Lymph # (Auto) 1.19 L (1.20-3.40) K/uL [place] # (Auto) 0.92 H (0.11-0.59) K/uL Potassium 2.9 L (3.5-5.1) mmol/L Chloride 114 H (98-107) mmol/L Carbon Dioxide 20 L (21-32) mmol/L Creatinine 2.16 H (0.6-1.4) mg/dl BUN/Creatinine Ratio 9.7 L (10-20) Calcium 8.3 L (8.6-10.3) mg/dl Total Protein 5.6 L (6.0-8.3) gm/dl Albumin 2.4 L (3.4-5.0) gm/dl Albumin/Globulin Ratio 0.8 L (0.9-2) PG Care Time/CCT Total # of Minutes Spent Total Time Spent with Patient: Total time spent is greater than 50% in coordination of care (as documented) at patient's floor/unit and/or counseling patient: Coding Level of Care Code 94195 SUB INP/OBS CARE 2/35MIN Diagnoses Sepsis A41.9; R65.20; J96.01 Acute respiratory failure type: with hypoxia Sepsis acute organ dysfunction status: with acute organ dysfunction Sepsis type: sepsis due to unspecified organism Severe sepsis acute organ dysfunction type: acute respiratory failure Severe sepsis shock status: without septic shock Acute on chronic respiratory failure with hypoxia J96.21 HIV (human immunodeficiency virus infection) Z21 HIV symptom status: unspecified Mycobacterium avium complex A31.0 Severe protein-calorie malnutrition E43 Intraabdominal mass R19.00 Malignant ascites R18.0 Cachexia associated with AIDS B20; E88.A Hypotension I95.9 Emphysema lung J43.9 (1) Sepsis Acute respiratory failure type: with hypoxia Sepsis acute organ dysfunction status: with acute organ dysfunction Sepsis type: sepsis due to unspecified organism Severe sepsis acute organ dysfunction type: acute respiratory failure Severe sepsis shock status: without septic shock Qualified Code(s): A41.9 - Sepsis, unspecified organism; R65.20 - Severe sepsis without septic shock; J96.01 - Acute respiratory failure with hypoxia (3) HIV (human immunodeficiency virus infection) HIV symptom status: unspecified Qualified Code(s): Z21 - Asymptomatic human immunodeficiency virus [HIV] infection status
--- NOTE | 2024-04-29 14:25 | Nephrology Consultation ---
Date of Consultation April 29, 2024 Assessment & Plan (1) Acute kidney injury: (2) Hypokalemia: (3) Metabolic acidosis: (4) Cachexia associated with AIDS: (5) Severe protein-calorie malnutrition: (6) Multifocal pneumonia: (7) Anemia: (8) Mycobacterium avium complex: Plan 43 Y O male with no history of CKD, baseline creatinine 1.0-1.1, history of HIV/AIDS with multiple complications including disseminated MAC infection with pneumonia, ascites, admitted with shortness of breath and acute kidney injury. Kidney function has been worsening over last 3 days, on admission creatinine 1.6 worsened to 2.2 this morning associated with hypokalemia and metabolic acidosis. Has been significantly hypertensive since admission which slightly improved. Urinalysis with low-grade proteinuria and microscopic hematuria. CT abdomen pelvis in January 2024 showed otherwise normal kidney. KEERTHI most likely secondary to ATN with persistent hypotension, intravascular volume depletion with significant ascites, unlikely toxicity from amikacin which he received 3 days but amikacin random level was only 2.4 mcg/ml. Possibility for postrenal obstruction with increased intra-abdominal pressure with tense ascites remains. -- Encouraged to increase fluid intake, recommend paracentesis today, not more than 5 L. Monitor intake and output, if remains significantly negative will recommend IV hydration. -- Replace potassium -- If kidney function continues to worsen, will consider renal ultrasound tomorrow. Repeat urinalysis. Thank you for allowing me to participate in your patients care. It was a pleasure to see Margarito. History of Present Illness Reason for Consultation: KEERTHI, metabolic acidosis, Hypokalemia. Attending Physician: Timur Carter MD History of Present Illness Mr. Margarito Arias is a 43-year-old male with past medical history mainly significant for HIV/AIDS, disseminated MAC infection, admitted to the hospital with respiratory failure and acute kidney injury. Nephrology consult was requested for management of above. EMR records were reviewed in detail during patient's visit. Barbara presented to ER on 04/26/2024 with the complaints of shortness of breath. Chest x-ray and CT chest on admission showed left lower lobe ground glass opacity concerning for atypical infection with history of HIV/AIDS, disseminated MAC infection. Empirically started on Doxycycline and Zosyn. Admission lab was notable for creatinine of 1.7 mg/dl with prior baseline normal kidney function creatinine 1.0-1.1 mg/dl. Kidney function has been slowly worsening over last 3 days, creatinine this morning was 2.2. Okay urinalysis was notable for low-grade proteinuria and microscopic hematuria but no bacteria. CT abdomen pelvis in January 2024 showed otherwise normal kidney. He was hypotensive on admission with systolic blood pressure in low 90s. He received 3 doses of amikacin last week as part of his treatment for MAC but since admission he has not been getting the treatment because most of the medication has not been available yet. Amikacin random level from 04/28/2024 was 2.4 mcg/mL. Has history of significant ascites, has peritoneal catheter and has been getting ascitic fluid drained every other day about 2 to 3 L. Never smoker but exposure to secondhand smoke as his mother was a heavy smoker. Currently at [facility]. History of HIV /AIDS has been on Biktarvy and Bactrim prophylaxis with h/o PJP pneumonia in 2019, CMV infection disseminated MAC infection. He was diagnosed with MAC in November 2021 and started on ethambutol and azithromycin for 6 months until July 2022 but he was not compliant with the regimen. In May 2023 he grew MAC in multiple sputum culture and restarted on ethambutol and azithromycin. Admitted to [facility] in January 2024 for abdominal distention, CT showed ill- defined soft tissue mass and multifocal retroperitoneal and mesenteric soft tissue mass. Peritoneal fluid culture on 02/01/2024 showed 3+ AFB on smear and culture grew MAC. He was transferred to [facility], had biopsy of the retroperitoneal mass which was negative for malignancy or lymphoma. Has been having rapid reaccumulation of ascitic fluid and had a tunnel peritoneal catheter placed. Ascitic fluid PCR was positive for Estrella albicans and AFB stain and culture grew MAC, completed 2 weeks of treatment for fungal ascites. Due to prior history of noncompliance there was concern for possible resistance and decision was made to start him on 4 drug regimen which was started on 04 March 2024 ( Azithromycin, ethambutol, levofloxacin and rifabutin). Amikacin was just started last week and he received only 3 doses. He has been having significant ascites, last was drained on Sunday prior to coming to hospital. Denies further episode of SOB. BP improved but still low, Reports decent UO. O2 sat >98 on RA. Allergies Allergy/AdvReac Type Severity Reaction Status Date / Time No Known Allergies Allergy Verified 04/03/24 11:16 Home Medications Medication Instructions Recorded Confirmed Type A&D Ointment 1 applic topical DAILY 02/01/24 04/27/24 History Lactobacillus acidophilus 0 mg PO BID 02/01/24 04/27/24 History (Acidophilus capsule) Robitussin Max Stren 100/5ml 15 ml PO QID PRN .cough 02/01/24 04/27/24 History Vitamin E Lotion 1 applic topical TID 02/01/24 04/27/24 History acetaminophen 325 mg tablet 650 mg PO QID PRN Pain 02/01/24 04/27/24 History (Tylenol) brimonidine 0.15 % eye drops 1 drp OPL BID 02/01/24 04/27/24 History cholecalciferol (vitamin D3) 25 25 mcg PO DAILY 02/01/24 04/27/24 History mcg (1,000 unit) tablet (Vitamin D3) cholestyramine (with sugar) 4 gram 4 g PO BID 02/01/24 04/27/24 History powder for susp in a packet (Questran) difluprednate 0.05 % eye drops 1 drp OPL .6XSDAY 02/01/24 04/27/24 History difluprednate 0.05 % eye drops 1 drp OPR BID 02/01/24 04/27/24 History ergocalciferol (vitamin D2) 1,250 1,250 mcg PO .WEEKLY 02/01/24 04/27/24 History mcg (50,000 unit) capsule (Vitamin D2) ethambutol 100 mg tablet 50 mg PO DAILY 02/01/24 04/27/24 History ethambutol 400 mg tablet 800 mg PO DAILY 02/01/24 04/27/24 History loperamide 2 mg tablet (Imodium 2 mg PO TID PRN Diarrhea 02/01/24 04/27/24 History A-D) midodrine 5 mg tablet 5 mg PO BID 02/01/24 04/27/24 History multivitamin 1 tab PO DAILY 02/01/24 04/27/24 History sulfamethoxazole 800 1 tab PO DAILY 02/01/24 04/27/24 History mg-trimethoprim 160 mg tablet (Bactrim DS) umeclidinium 62.5 mcg/actuation 1 inh inhalation DAILY 02/01/24 04/27/24 History blister powder for inhalation (Incruse Ellipta) amikacin 250 mg/mL injection 1,200 mg IV 3XWK 04/27/24 04/27/24 History solution dolutegravir 50 mg tablet (Tivicay) 50 mg PO BID 04/27/24 04/27/24 History emtricitabine 200 mg-tenofovir 1 tab PO DAILY 04/27/24 04/29/24 History disoproxil fumarate 300 mg tablet (Truvada) enoxaparin 30 mg/0.3 mL 30 mg subcut 1XD 04/27/24 04/27/24 History subcutaneous solution folic acid 1 mg tablet 1 mg PO DAILY 04/27/24 04/27/24 History pantoprazole 40 mg tablet,delayed 40 mg PO DAILY 04/27/24 04/27/24 History release pyridoxine (vitamin B6) 50 mg 50 mg PO DAILY 04/27/24 04/27/24 History tablet rifabutin 150 mg capsule 300 mg PO DAILY 04/27/24 04/27/24 History tedizolid 200 mg tablet (Sivextro) 200 mg PO DAILY 04/27/24 04/27/24 History Patient History Medical History Diarrhea Hyperlipemia Iron deficiency anemia Vitamin D deficiency Social History Smoking Status: Unknown if ever smoked Second Hand Exposure: No; Do You Dip or Chew Tobacco: No; Hx Alcohol Use: No Hx Substance Use: No Preferred Language: Chilean Communication Ability: Effective Sprayer Automatic Spray Machine Required: No Beliefs That Will Affect Care: None Current Living Situation: Other Current Living Situation Comment: [facility] Feels Safe at Home: Yes Assistive Devices: Walker Review of Systems Review of Systems: All systems reviewed & are unremarkable except as noted in HPI & below Physical Exam Constitutional: WD/WN, vitals as above + cachectic, + malnourished and + underweight; no acute distress Eyes: + anicteric sclerae Neck: normal visual inspection Respiratory: no respiratory distress Auscultation: lungs clear to auscultation bilaterally Cardiovascular: Rate/Rhythm: regular rate and regular rhythm Heart Sounds: normal S1 and normal S2 Extremities: no edema Gastrointestinal (Abdomen): Inspection/Auscultation: + abdomen distended Percussion/Palpation: + ascites and + abdomen firm; abdomen nontender peritoneal catheter. Musculoskeletal: muscle wasting Skin: no rashes, warm and dry Neurologic: no focal motor deficits Psychiatric: Orientation: alert and oriented x 3 Affect: euthymic affect Results & Data Vital Signs (Past 12 Hours) Vital Signs Temp Pulse Resp BP BP Pulse Ox O2 Del Method 04/29/24 12:00 Room Air 04/29/24 11:21 36.6 C 82 18 101/78 100 Room Air 04/29/24 08:09 36.9 C 95 H 18 101/71 100 Room Air 04/29/24 04:01 36.4 C L 91 H 16 101/66 95 Room Air PG Care Time/CCT Total # of Minutes Spent Total Time Spent with Patient: Total time spent is greater than 50% in coordination of care (as documented) at patient's floor/unit and/or counseling patient: Coding Level of Care Code 21232 INT INP/OBS CARE 3/75MIN Diagnoses Acute kidney injury N17.9 Hypokalemia E87.6 Metabolic acidosis E87.20 Cachexia associated with AIDS B20; E88.A Severe protein-calorie malnutrition E43 Multifocal pneumonia J18.9 Anemia D64.9 Mycobacterium avium complex A31.0
--- NOTE | 2024-04-29 15:07 | Pharmacy Report ---
Pharmacy PK ABX Note - Date of Service April 29, 2024 - Assessment and Plan Assessment 04/30 * Case discussed w Dr. Elmore again today with the following assessment/plan: * Rifabutin and tedizolid have been obtained from [facility]. * SCr continues to worsen, now 2.16 mg/dL w eCrCL 32 * Amikacin trough level yesterday AM was therapeutic at 2.4 mcg/mL (note - results available in scanned reports section, not in laboratory section). * Truvada dose clarified w [facility] - is 1 tab (200/300) po *daily*. Med history adjusted (originally noted BID). However, this is now renally adjusted to q48h. If it needs to be held 2nd worsening renal function, dolutegravir likely will also need to be held * Plan as of now is to resume the prior outpatient regimen (ethambutol, rifabutin, tedizolid, and amikacin), pending additional outpatient data / cultures * Full 1200 mg dose of amikacin today despite KEERTHI noted - dose relates to *efficacy* / peak. However, anticipate interval may need to be lengthened due to KEERTHI as interval relates to *toxicity* / trough. * Will obtain peak level 30 minutes after the end of the amikacin infusion. This is a send out but delay in results will be insignificant as this will inform how much to give for the next dose which will not be for a minimum of 48 hours. * Will obtain trough level 48 hours after the peak level. This is a send- out, but since interval may need to be longer than 48 hours 2nd KEERTHI this is less likely to impact care 04/29 * Trough level ordered this AM. Called [facility] lab and spoke w Adolfo this AM - this is a send out to [facility] w results faxed to us ~2-3 hours after they receive it. Katie had already been called and requested. Hopefully, will receive results today. * SCr increased today to 1.98 mg/dL * Discussed dosing w [facility] pharmacist (Sergo) - KEERTHI noted, but as long as trough is <4, OK to re-dose at full 1200 mg when appropriate. Plan to adjust frequency based on trough levels and dose based on peak levels. Will obtain peak level with next dose, to be drawn 30 minutes after completion of the infusion * Called lab at 1500 - no results from [facility], yet. They will fax result to us. Asked lab to monitor for result periodically tonight and call pharmacy [phone] if/when result is obtained * ID consulted - spoke w Dr. Elmore at 1530 - unclear what regimen is, but may be combo of rifabutin, tedizolid, amikacin, and ethambutol. Currently only ethambutol ordered / being administered because we're waiting on amikacin level and waiting on [facility] to bring in rifabutin and tedizolid - unclear if they have been asked to do so. Per Dr. Elmore - partial regimen likely more of a risk due to increased resistance, which is apparently already an issue for this patient with macrolide resistance. Unclear if tedizolid is part of the regimen, although it can be used for MAC. Will therefore hold amikacin t onight - Dr. Whitman in agreement. She noted intent to call [facility] and speak with the [facility] directly today. 04/28 * 43 year old M receiving IV amikacin for treatment of chronic MAC infection. * Spoke with [facility] RN today, dosing/regimen verified. Patient is receiving amikacin 1200mg (~23mg/kg/dose) IV daily on . Last dose was 04/25 @ 0837. * Therapy was initiated by [facility] manager medical writing Dr. Ascencion Powers (being managed by Dr. Powers) on 04/21/24. Regimen was recommended by [facility]. * Confirmed that no levels have been drawn since therapy initiated. * Patient with KEERTHI currently (SCr 1.67-->1.45), baseline ~ 1mg/dl. Plan Amikacin * Goal trough < 5 mcg/mL * Goal peak for intermittent TIW dosin-80 mcg/mL * Amikacin 1200 mg IV x1 now * Peak 30 minutes after the end of the infusion (1 hr 32 minutes from the start of the infusion) * Trough 48 hours after the peak Pharmacy will continue to follow and will adjust dose/frequency as necessary. Thank you.
--- NOTE | 2024-04-29 15:24 | Infectious Disease Progress Nt ---
Date of Service April 29, 2024 Assessment & Plan (1) Multifocal pneumonia: (2) Bronchiectasis: (3) Acute on chronic respiratory failure with hypoxia: (4) Cachexia associated with AIDS: (5) Mycobacterium avium complex: Plan This is a 43 year old man with pmh HIV/AIDS ( CD4, 142/11.9% on 04/21/24 , VL UD per report) , on truvada/dolutegravir and Bactrim prophylaxis, PJP pneumonia (2019), CMV infection, disseminated MAC infection, incomplete adherence to medications, prisoner at [facility] presents for acute shortness of breath. He was initially diagnosed with MAC infection in 11/2021 at [facility] where blood cultures grew MAC . He was started on ethambutol and azithromycin for 6 months until 07/2022. He was not adherent w/azithromycin and ethambutol from 07/2022- 06/2023 as he thought that the ethambutol may have been causing visual changes. In 05/2023 MAC grew in multiple sputum cultures. He was restarted on Ethambutol/Azithromycin. He was admitted to [facility] multiple times. He was last admitted 01/31-02/03 for abdominal distention . CTAP showed severe extrinsic compression of the main vein due to ill-defined 3.7 cm soft tissue mass and multifocal retroperitoneal and mesenteric soft tissues. 02/01/2024 peritoneal fluid grew 3+ AFB on smear and culture grew MAC (Moxifloxacin resistant, clarithromycin sensitive, amikacin IV resistant, linezolid resistant). He was transferred to [facility] 02/03-03/06 for further management for chylous ascites. His ill-defined retroperitoneal mass was biopsied and was negative for malignancy/lymphoma. He had rapid re-accumulation of ascites and required a tunneled ascites catheter. 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 AFB stain 4+ AFB, cultures grew MAC, ascites fluid PCR positive for Estrella albicans . Given interruptions in treatment and possible monotherapy with azithromycin there was concern for possible resistant MAC. Also with his high burden of MAC , the decision was made to treat him with a 4 drug regimen in 02/2024 until sensitivities were back. He was started on azithromycin, ethambutol, levofloxacin and rifabutin pending sensitivities. He completed 2 weeks of treatment for fungal ascites. His MAC/HIV is being treated at [facility] in conjunction with [facility] ( Dr Tse) per report. He is currently on Tedezolid, Rifabutin, Ethambutol and Amikacin. Amikacin was started last week. It is unclear if pt has recent mycobacterium sensitivities available and if medication changes were made based on these results In the ED temperature 35.6, HR 91, RR 17, BP 90/71, O2 sats 98% on BiPAP. Labs WBC 14.41, platelets 136, BUN 20, creatinine 1.45. Respiratory viral panel negative. Chest x-ray shows Emphysema with chronic interstitial coarsening. On CT chest there is a focus of groundglass opacity of the left lower lobe concerning for atypical infection. Emphysema is noted. He was continued on Biktarvy, bactrim, ethambutol. Amikacin held as KEERTHI and levels pending. Tedizolid and Rifabutin not available her and pending receipt of his meds from his facility. ID consulted for hypoxia , HiV, MAC infection . On my initial exam he is comfortable and on RA. His shortness of breath has improved. He denies fever, chills, sweats, cough, nausea, rash, visual changes, night sweats, vomiting or abdominal pain or drainage. He admits to sick contacts in the retirement. 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 It has since resolved. He is now back to his baseline and is now on room air. Unclear cause of changes in his CT chest. Could be secondary to bacterial pneumonia, atypical infections in an immunocompromised patient including PJP/fungal infections. Could also represent progression of his MAC, but less likely as he improved quickly. At this time it is unclear what the sensitivity of his most recent MAC samples. Based on the 02/01/24 ascites fluid there is resistance to fluoroquinolones as well as amikacin. Clarithromycin seems to be sensitive however he is not on azithromycin. He remains on amikacin in the outpt setting. Will need to get additional information from his ID provider to clarify his MAC regimen. -04/28 Held ethambutol as he is unable to take all his MAC therapy ( rifabutin/tedizolid unavailable, pending his facility providing tomorrow). Will restart once all medication available. Concern if he continues on partial regimen, will develop further resistance. Amikacin on hold as levels pending in setting of keerthi . Cr 1.98. Amikacin recently started outpt last week( need more info from his ID doc, unclear MAC is S based on prior testing) [facility] -04/29, KEERTHI worsened. Cr 2.16 ( 1.98), WBC 16.85 ( 15.13). Recommendations - Continue Truvada/ Dolutegravir. Will need to dose truvada q48h given worsening KEERTHI ( d/w pharmacy) - continue bactrim ppx -Restart ethambutol as remainder of MAC therapy now available -Restart tedizolid and rifabutin ( received today) -Restart Amikacin as per d/w pharmacy as levels wnl -Follow up Crypto ag, PJP sputum, histo urine ag, fungitell - Continue Doxycycline per pulm - Monitor WBC and Cr Pending additional information on his MAC regimen, MAC susceptibility from his ID doc ( Dr. Tse). unclear if current MAC regimen is based on recent MAC susceptibilities. If based on 01/2024 susceptibilities, may need to dc amikacin and start azithromycin if no h/o Azith/clarith R documented.. Need more info D/W hospitalist, pharmacist, hospitalist lab tech re plan and obtaining additional micro/medication/ID info. Thank you for this consult. ID will continue to follow Aisha Elmore MD, MPH Infectious Disease ID Connect [facility], ID Division Call [phone] with questions Admission and Anticipated Discharge Date Admission Date: April 27, 2024 Subjective This patient recommendation is based on a telemedicine consult request which was completed asynchronously through chart review and information provided by the primary physician. The patient was not seen or examined today. The evaluation is consultative in nature and all patient care and treatment decisions can either be accepted or rejected by the patient's primary hospital-based treating physician using their own independent medical judgment for their patient. Time Spent Reviewing Chart: 31+ minutes KEERTHI worsening Pending outpt ID records to verify MAC therapy and most recent Mac susceptibility Afebrile, on RA Results & Data Vital Signs (Past 12 Hours) Vital Signs Temp Pulse Pulse Resp BP BP Pulse Ox 04/29/24 15:19 36.8 C 100 H 18 100/67 99 04/29/24 12:48 97 H 04/29/24 12:00 04/29/24 11:21 36.6 C 82 18 101/78 100 04/29/24 08:09 36.9 C 95 H 18 101/71 100 04/29/24 04:01 36.4 C L 91 H 16 101/66 95 O2 Del Method 04/29/24 15:19 Room Air 04/29/24 12:48 04/29/24 12:00 Room Air 04/29/24 11:21 Room Air 04/29/24 08:09 Room Air 04/29/24 04:01 Room Air Laboratory Results Laboratory Results - last 48 hr 04/28/24 04/29/24 05:53 05:28 WBC 15.13 H 16.85 H RBC 4.01 L 4.18 L Hgb 10.8 L 11.0 L Hct 32.4 L 34.7 L MCV 80.8 83.0 MCH 26.9 26.3 MCHC 33.3 31.7 L RDW Std Deviation 51.1 H 53.6 H RDW Coeff of Brody 17.8 H 18.4 H Plt Count 145 174 MPV 9.6 9.7 Immature Gran % (Auto) 0.9 0.6 Neut % (Auto) 91.0 85.9 Lymph % (Auto) 4.2 7.1 Crenshaw % (Auto) 3.7 5.5 Eos % (Auto) 0.1 0.8 Baso % (Auto) 0.1 0.1 Neut # (Auto) 13.77 H 14.50 H Lymph # (Auto) 0.64 L 1.19 L Crenshaw # (Auto) 0.56 0.92 H Eos # (Auto) 0.01 0.13 Baso # (Auto) 0.02 0.01 Immature Gran # (Auto) 0.13 0.10 Absolute Nucleated RBC 0.02 Nucleated RBC % (auto) 0.1 Toxic Vacuolation 1+ Tear Drop Cells 1+ PT 10.3 10.7 INR 0.9 1.0 APTT 30 26 PTT Ratio 1.1 1.0 Sodium 137 139 Potassium 3.2 L 2.9 L Chloride 110 H 114 H Carbon Dioxide 19 L 20 L Anion Gap 8 5 BUN 23 21 Creatinine 1.98 H D 2.16 H Est Cr Clr Drug Dosing 35.8 32.7 eGFR 42.72 38.48 BUN/Creatinine Ratio 11.6 9.7 L Glucose 131 H 91 Calcium 8.1 L 8.3 L Magnesium 1.9 1.7 Total Bilirubin 0.2 0.2 AST 17 36 ALT 21 40 Alkaline Phosphatase 103 102 Troponin I High Sens 16.3 D Total Protein 5.8 L 5.6 L Albumin 2.6 L 2.4 L Globulin 3.2 3.2 Albumin/Globulin Ratio 0.8 L 0.8 L [id number]-[id number]-Lqyhdmrcrie Cancelled Miscellaneous Test Cancelled Microbiology 04/26/24 22:58 Blood Aerobic Blood Culture - Preliminary No growth in Aerobic bottle after 48 hours. 04/26/24 22:58 Blood Anaerobic Blood Culture - Preliminary No growth in Anaerobic bottle after 48 hours. 04/26/24 22:35 Blood Aerobic Blood Culture - Preliminary No growth in Aerobic bottle after 48 hours. 04/26/24 22:35 Blood Anaerobic Blood Culture - Preliminary No growth in Anaerobic bottle after 48 hours. Diagnostic Findings Chest X-Ray 04/26/24 22:24 XR chest 1V portable HISTORY: 43 years-old Male Sepsis COMPARISON: Chest CT 04/27/2024 TECHNIQUE: AP view of the chest FINDINGS: Right IJ [id number]-[id number] catheter. Heart size is normal. There are a few calcified right-sided pleural plaques noted. Emphysema with chronic interstitial coarsening redemonstrated. The bones appear grossly intact. IMPRESSION: Emphysema with similar appearance of the chronic interstitial coarsening. Please refer to the same day chest CT for additional findings. ACT 112: Negative or not required by law. The above report was generated using voice recognition software. It may contain grammatical, syntax or spelling errors. Electronically signed by: Rashid Nunez M.D. 04/27/2024 8:[address] 04/27/24 00:48 Exam(s): CT CHEST Without Contrast EXAM: CT Chest Without Intravenous Contrast CLINICAL HISTORY: Hypoxia TECHNIQUE: Axial computed tomography images of the chest without intravenous contrast. CTDI is 7.27 mGy and DLP is 239.77 mGy-cm. Automated exposure control was utilized for the study. A dose lowering technique was utilized adhering to the principles of ALARA. COMPARISON: CTA chest 12/04/2023 FINDINGS: Lungs: Emphysema is noted. There is a focus of groundglass opacity of the left lower lobe concerning for atypical infection. Pleural space: Unremarkable. No pneumothorax. No significant effusion. Heart: Unremarkable. No cardiomegaly. No significant pericardial effusion. No significant coronary artery calcifications. Bones/joints: There are degenerative changes of the spine. No acute fracture. No dislocation. Soft tissues: Unremarkable. Vasculature: Unremarkable. No thoracic aortic aneurysm. Lymph nodes: Unremarkable. No enlarged lymph nodes. Intraperitoneal space: Incidentally noted large free fluid in the abdomen. IMPRESSION: 1. There is a focus of groundglass opacity of the left lower lobe concerning for atypical infection. 2. Emphysema is noted. Emphysema is an independent risk factor for lung cancer. Recommend evaluation for low dose lung cancer screening protocol. 3. Incidentally noted large free fluid in the abdomen. Electronically signed by: Ely Vela MD 04/27/24 03:13 AM Medications Administered Home Medications Medication Instructions Recorded Confirmed Last Taken A&D Ointment 1 applic topical DAILY 02/01/24 04/27/24 Unknown Lactobacillus acidophilus 0 mg PO BID 02/01/24 04/27/24 1 Day Ago (Acidophilus capsule) ~04/26/24 Robitussin Max Stren 100/5ml 15 ml PO QID PRN .cough 02/01/24 04/27/24 1 Day Ago ~04/26/24 Vitamin E Lotion 1 applic topical TID 02/01/24 04/27/24 Unknown acetaminophen 325 mg tablet 650 mg PO QID PRN Pain 02/01/24 04/27/24 1 Day Ago (Tylenol) ~04/26/24 brimonidine 0.15 % eye drops 1 drp OPL BID 02/01/24 04/27/24 Unknown cholecalciferol (vitamin D3) 25 25 mcg PO DAILY 02/01/24 04/27/24 1 Day Ago mcg (1,000 unit) tablet (Vitamin ~04/26/24 D3) cholestyramine (with sugar) 4 gram 4 g PO BID 02/01/24 04/27/24 1 Day Ago powder for susp in a packet ~04/26/24 (Questran) difluprednate 0.05 % eye drops 1 drp OPL .6XSDAY 02/01/24 04/27/24 1 Day Ago ~04/26/24 difluprednate 0.05 % eye drops 1 drp OPR BID 02/01/24 04/27/24 1 Day Ago ~04/26/24 ergocalciferol (vitamin D2) 1,250 1,250 mcg PO .WEEKLY 02/01/24 04/27/24 1 Day Ago mcg (50,000 unit) capsule (Vitamin ~04/26/24 D2) ethambutol 100 mg tablet 50 mg PO DAILY 02/01/24 04/27/24 1 Day Ago ~04/26/24 ethambutol 400 mg tablet 800 mg PO DAILY 02/01/24 04/27/24 1 Day Ago ~04/26/24 loperamide 2 mg tablet (Imodium 2 mg PO TID PRN Diarrhea 02/01/24 04/27/24 Unknown A-D) midodrine 5 mg tablet 5 mg PO BID 02/01/24 04/27/24 1 Day Ago ~04/26/24 multivitamin 1 tab PO DAILY 02/01/24 04/27/24 1 Day Ago ~04/26/24 sulfamethoxazole 800 1 tab PO DAILY 02/01/24 04/27/24 1 Day Ago mg-trimethoprim 160 mg tablet ~04/26/24 (Bactrim DS) umeclidinium 62.5 mcg/actuation 1 inh inhalation DAILY 02/01/24 04/27/24 1 Day Ago blister powder for inhalation ~04/26/24 (Incruse Ellipta) amikacin 250 mg/mL injection 1,200 mg IV 3XWK 04/27/24 04/27/24 04/25/24 solution dolutegravir 50 mg tablet (Tivicay) 50 mg PO BID 04/27/24 04/27/24 1 Day Ago ~04/26/24 emtricitabine 200 mg-tenofovir 1 tab PO DAILY 04/27/24 04/29/24 1 Day Ago disoproxil fumarate 300 mg tablet ~04/26/24 (Truvada) enoxaparin 30 mg/0.3 mL 30 mg subcut 1XD 04/27/24 04/27/24 1 Day Ago subcutaneous solution ~04/26/24 folic acid 1 mg tablet 1 mg PO DAILY 04/27/24 04/27/24 1 Day Ago ~04/26/24 pantoprazole 40 mg tablet,delayed 40 mg PO DAILY 04/27/24 04/27/24 1 Day Ago release ~04/26/24 pyridoxine (vitamin B6) 50 mg 50 mg PO DAILY 04/27/24 04/27/24 1 Day Ago tablet ~04/26/24 rifabutin 150 mg capsule 300 mg PO DAILY 04/27/24 04/27/24 1 Day Ago ~04/26/24 tedizolid 200 mg tablet (Sivextro) 200 mg PO DAILY 04/27/24 04/27/24 1 Day Ago ~04/26/24 Active Medications Generic Name Dose Route Start Last Admin Trade Name Jakeq PRN Reason Stop Dose Admin Brimonidine Tartrate 1 drops 04/27/24 09:00 04/29/24 08:42 Brimonidine Tartrate-P 0.15% 5 Ml Btl OPL 05/27/24 08:59 1 drops BID JANES Administration Cholestyramine Resin 4 gm 04/27/24 10:00 04/29/24 10:20 Cholestyramine Light 4 Gm Pkt PO 05/27/24 09:59 Not Given BID@1000,2200 JANES Dolutegravir Sodium 50 mg 04/27/24 09:00 04/29/24 10:19 Dolutegravir Sodium 50 Mg Tab PO 05/27/24 08:59 50 mg BID JANES Administration Protocol Doxycycline Hyclate 100 mg 04/27/24 09:45 04/29/24 08:47 Doxycycline Hyclate 100 Mg Cap PO 05/03/24 23:59 100 mg BID JANES Administration Enoxaparin Sodium 30 mg 04/27/24 09:00 04/29/24 08:46 Enoxaparin Inj 30 Mg/0.3 Ml Syr SQ 05/27/24 08:59 Not Given QAM JANES Ethambutol HCl 50 mg 04/27/24 09:00 04/28/24 09:05 Ethambutol Hcl 100 Mg Tab PO 05/27/24 08:59 50 mg DAILY JANES Administration Ethambutol HCl 800 mg 04/27/24 09:00 04/28/24 09:06 Ethambutol Hcl 400 Mg Tab PO 05/27/24 08:59 800 mg DAILY JANES Administration Folic Acid 1 mg 04/27/24 09:00 04/29/24 08:45 Folic Acid 1 Mg Tab PO 05/27/24 08:59 1 mg DAILY JANES Administration Guaifenesin 600 mg 04/27/24 09:00 04/29/24 08:48 Guaifenesin 600 Mg Tabcr PO 05/27/24 08:59 Not Given Q12 JANES Lactobacillus Acidophilus 625 mg 04/27/24 09:00 04/29/24 08:45 Advanced Probiotic 625 Mg Capsule PO 05/27/24 08:59 625 mg BID JANES Administration Midodrine 5 mg 04/27/24 09:00 04/29/24 08:44 Midodrine Hcl 2.5 Mg Tab PO 05/27/24 08:59 5 mg BID@0900,1700 JANES Administration Miscellaneous 1 each 04/27/24 08:00 04/29/24 08:41 Difluprednate 0.05 % Drops - Order Awaiting Action N/A 05/27/24 07:59 Not Given QS JANES Miscellaneous 1 each 04/27/24 08:00 04/29/24 08:41 Difluprednate 0.05 % Drops - Order Awaiting Action N/A 05/27/24 07:59 Not Given QS JANES Multivitamins 1 tab 04/27/24 09:00 04/29/24 08:46 Multivitamin Tab PO 05/27/24 08:59 1 tab DAILY JANES Administration Pantoprazole Sodium 40 mg 04/27/24 09:00 04/29/24 10:19 Pantoprazole 40 Mg Tab PO 05/27/24 08:59 40 mg DAILY JANES Administration Pyridoxine HCl 50 mg 04/27/24 09:00 04/29/24 08:45 Pyridoxine Hcl 50 Mg Tab PO 05/27/24 08:59 50 mg DAILY JANES Administration Trimethoprim/Sulfamethoxazole 1 tab 04/27/24 09:00 04/29/24 08:43 Sulfamethoxazole/Trimethoprim Ds 800/160mg Tab PO 05/27/24 08:59 1 tab DAILY JANES Administration Umeclidinium [place] 1 puffs 04/27/24 09:00 04/29/24 08:48 Umeclidinium [place] 62.5mcg/Blister 7 Puffs/Inhaler INH 05/27/24 08:59 Not Given DAILY JANES Vitamin D 25 mcg 04/27/24 09:00 04/29/24 08:47 Cholecalciferol 25 Mcg (1000 Units) Tab PO 05/27/24 08:59 25 mcg DAILY JANES Administration
[2024-04-29] MEDS: DEXTROSE 5% IV STA (15:45)
[2024-04-29] MEDS: AMIKACIN SULFATE IV STA (15:45)
[2024-04-29] MEDS: RIFABUTIN 150 MG CAPSULE PO SCH (15:49)
[2024-04-29] MEDS: [UNRECOGNIZED DRUG - OTHER] PO SCH (15:49)
[2024-04-29] MEDS: [UNRECOGNIZED DRUG - OTHER] IV SCH (17:51)
[2024-04-30 06:51] LABS: BUN Creatinine Ratio 11.4 (10-20); Calcium 7.8 mg/dl (8.6-10.3); Creatinine Clr Calc Pharmacy 33.3 ml/min; Potassium 3.1 mmol/L (3.5-5.1)
[2024-04-30 06:53] LABS: Albumin Level 2.4 gm/dl (3.4-5.0); Magnesium 1.5 mg/dl (1.7-2.4); Phosphorus 1.3 mg/dl (2.5-4.9)
[2024-04-30 07:01] LABS: Partial Thromboplastin Time 27 Seconds (21-31)
[2024-04-30] MEDS ORDERED: POTASSIUM PHOS 3 MMOL/1 ML INFUSION IV STA (07:18)
--- NOTE | 2024-04-30 07:27 | Hospitalist Progress Note ---
Date of Service April 30, 2024 Assessment & Plan (1) Acute on chronic respiratory failure with hypoxia: (2) HIV (human immunodeficiency virus infection): (3) Mycobacterium avium complex: Plan: disseminated (4) Cachexia associated with AIDS: Plan: severe protein-calorie malnutrition (5) Emphysema lung: Plan Acute on chronic respiratory failure with hypoxia/chronic MAC infection- multifocal pneumonia and sepsis suspected on admission Respiratory failure/sepsis resolved Currently on room air, considered Most likely related to mucous plugging with its rapid resolution Azithromycin was switched to doxycycline by pulmonary. Plan to complete a 7-day course->Pulmonary signed off Acute kidney injury Normal renal function at baseline Nephrology consulted. considered possible atn from illness, hydrated, concern with ascites and consideration of ascitic fluid removal It could be postrenal due to ascites causing obstruction. 2L Ascitic fluid removed 04/29 Disseminated MAC with retroperitoneal mass and recurrent ascites/HIV Patient was diagnosed with HIV in 2013., Has been on Biktarvy since 2021 Regimen changed recently to Tedezolid, Rifabutin, Ethambutol and Amikacin. Amikacin renal dose . Amikacin level still pending While at [facility] upon recent transfer, CT abdomen showed severe extrinsic compression of portal vein due to soft tissue mass and multifocal retroperitoneal and mesenteric soft tissue. Biiopsy of mass and Peritoneal fluid grew MAC. Peritoneal fluid was also positive for Estrella albicans which was treated with a 2-week course of fluconazole. A tunneled ascites drain was placed for recurrent ascites that was being accessed at the present to drain ascitic fluid. Infectious disease involved His surgical pathology and flow cytometry did not show any evidence of malignancy/lymphoma but did show evidence of MAC in the peritoneum which is likely causing his recurrent ascites. Hypotension-initial concern for sepsis ruled out Patient is cachectic/sarcopenic and has baseline hypotension Blood pressure stable but low and the patient is feeling improved, but still too weak to even try to use bedside commode Discontinue IV hydrocortisone Continue to hold spironolactone DVT Prophylaxis- Continue lovenox 30mg SQ daily Admission and Anticipated Discharge Date Admission Date: April 27, 2024 Subjective pt is is sarcopenic, with marked temporal muscle wasting, weight is an estimate as it a bed weight, likely maybe lower pt relates that shortness of breath has improved but overall is weak, has abdominal distension and diarrhea Physical Exam Physical Exam: distended dull abdomen, drain in place, moderately painful Results & Data Results & Data Vital Signs (Past 12 Hours) Vital Signs Temp Pulse Pulse Resp BP Pulse Ox O2 Del Method 04/30/24 03:26 98.8 F 122 H 18 105/73 96 Room Air 04/29/24 23:23 98.1 F 117 H 18 97/69 L 97 Room Air 04/29/24 22:37 108 H 04/29/24 20:45 Room Air 04/29/24 19:24 97.9 F 103 H 18 100/58 L 97 Room Air Laboratory Results review chemistry 7 review magnesium review phosphorous repleted PG Care Time/CCT Total # of Minutes Spent Total Time Spent with Patient: Total time spent is greater than 50% in coordination of care (as documented) at patient's floor/unit and/or counseling patient: Coding Level of Care Code 08909 SUB INP/OBS CARE 3/50MIN Diagnoses Acute on chronic respiratory failure with hypoxia J96.21 HIV (human immunodeficiency virus infection) Z21 HIV symptom status: unspecified Mycobacterium avium complex A31.0 Cachexia associated with AIDS B20; E88.A Emphysema lung J43.9 (2) HIV (human immunodeficiency virus infection) HIV symptom status: unspecified Qualified Code(s): Z21 - Asymptomatic human immunodeficiency virus [HIV] infection status
[2024-04-30] MEDS: POTASSIUM PHOSPHATE 15 MMOL in SODIUM CHLORIDE 0.9% 250 ML IV ONE (09:02)
[2024-04-30] MEDS: MAGNESIUM SULFATE / D5W 1 GM/100 ML BAG IV SCH (09:02)
[2024-04-30] MEDS: PANTOprazole 40 MG in SYRINGE DAILY IV SCH (09:05)
[2024-04-30] MEDS: HEPARIN 100 UNIT/ML 5ML FLUSH FLUSH PRN (09:06)
--- NOTE | 2024-04-30 09:58 | Nephrology Progress Note ---
Date of Service April 30, 2024 Assessment & Plan (1) Acute kidney injury: (2) Hypokalemia: (3) Metabolic acidosis: (4) Cachexia associated with AIDS: (5) Severe protein-calorie malnutrition: (6) Multifocal pneumonia: (7) Anemia: (8) Mycobacterium avium complex: Plan 43 Y O male with no history of CKD, baseline creatinine 1.0-1.1, history of HIV/AIDS with multiple complications including disseminated MAC infection with pneumonia, ascites, admitted with shortness of breath and acute kidney injury. Kidney function has been worsening over last 3 days, on admission creatinine 1.6 worsened to 2.2 this morning associated with hypokalemia and metabolic acidosis. Has been significantly hypertensive since admission which slightly improved. Urinalysis with low-grade proteinuria and microscopic hematuria. CT abdomen pelvis in January 2024 showed otherwise normal kidney. KEERTHI most likely secondary to ATN with hypotension, intravascular volume depletion with significant ascites, diarrhea, unlikely toxicity from amikacin which he received 3 days but amikacin random level was only 2.4 mcg/ml. Possibility for postrenal obstruction with increased intra-abdominal pressure with tense ascites remains. -- Encouraged to increase fluid intake, recommend paracentesis today, not more than 5 L. Monitor intake and output, if remains significantly negative will recommend IV hydration. -- Replace potassium and phosphate. Admission and Anticipated Discharge Date Admission Date: April 27, 2024 Arsh Pimentel was seen and evaluated this morning. He denied any specific symptoms but continues to have ongoing diarrhea with significant loose stool. Had 2 L paracentesis yesterday. Kidney function staying stable but noted to have multi ple critical electrolyte abnormality including potassium of 3.1, phosphorus 1.3, magnesium 1.4 and metabolic acidosis. Blood pressure staying relatively low but asymptomatic. No shortness of breath, fever or chills. Review of Systems Review of Systems: Detailed review of system was done and pertinent positives and negatives are mentioned above. Physical Exam Constitutional: WD/WN, vitals as above + cachectic, + malnourished and + underweight; no acute distress Eyes: + anicteric sclerae Respiratory: Auscultation: lungs clear to auscultation bilaterally Cardiovascular: Rate/Rhythm: regular rate and regular rhythm Heart Sounds: normal S1 and normal S2 Extremities: no edema Musculoskeletal: muscle wasting Skin: no rashes, warm and dry Neurologic: no focal motor deficits Psychiatric: Orientation: alert and oriented x 3 Affect: euthymic affect Results & Data Vital Signs (Past 12 Hours) Vital Signs Temp Pulse Pulse Resp BP BP Pulse Ox 04/30/24 08:11 36.7 C 107 H 18 102/71 98 04/30/24 07:17 106 H 04/30/24 03:26 37.1 C 122 H 18 105/73 96 04/29/24 23:23 36.7 C 117 H 18 97/69 L 97 04/29/24 22:37 108 H O2 Del Method 04/30/24 08:11 Room Air 04/30/24 07:17 04/30/24 03:26 Room Air 04/29/24 23:23 Room Air 04/29/24 22:37 PG Care Time/CCT Total # of Minutes Spent Total Time Spent with Patient: Total time spent is greater than 50% in coordination of care (as documented) at patient's floor/unit and/or counseling patient: Coding Level of Care Code 45061 SUB INP/OBS CARE 2/35MIN Diagnoses Acute kidney injury N17.9 Hypokalemia E87.6 Metabolic acidosis E87.20 Cachexia associated with AIDS B20; E88.A Severe protein-calorie malnutrition E43 Multifocal pneumonia J18.9 Anemia D64.9 Mycobacterium avium complex A31.0
--- NOTE | 2024-04-30 12:56 | Pharmacy Report ---
Pharmacy PK ABX Note - Date of Service April 30, 2024 - Assessment and Plan Assessment 05/01 * Amikacin admin at 1545 yesterday. Infusion completed at 1647. Peak was to be drawn 30 minutes later at 1717 and phlebotomy was called and notified of the importance of this timing. However, level was drawn 20 minutes too early at 1657, prior to the distribution phase of amikacin completing. Level therefore will be falsely elevated, but not able to tell how falsely elevated since it will be affected both by distribution and elimination. * Will order a random level today. It may not necessarily be helpful to back- calculate a peak, but could give an idea of patient-specific ke when evaluated in conjunction with trough tomorrow. However, patient-specific calculated ke can only be interpreted in the context of stable renal function, which is also potentially an issue 04/30 * Case discussed w Dr. Elmore again today with the following assessment/plan: * Rifabutin and tedizolid have been obtained from [facility]. * SCr continues to worsen, now 2.16 mg/dL w eCrCL 32 * Amikacin trough level yesterday AM was therapeutic at 2.4 mcg/mL (note - results available in scanned reports section, not in laboratory section). * Truvada dose clarified w [facility] - is 1 tab (200/300) po *daily*. Med history adjusted (originally noted BID). However, this is now renally adjusted to q48h. If it needs to be held 2nd worsening renal function, dolutegravir likely will also need to be held * Plan as of now is to resume the prior outpatient regimen (ethambutol, rifabutin, tedizolid, and amikacin), pending additional outpatient data / cultures * Full 1200 mg dose of amikacin today despite KEERTHI noted - dose relates to *efficacy* / peak. However, anticipate interval may need to be lengthened due to KEERTHI as interval relates to *toxicity* / trough. * Will obtain peak level 30 minutes after the end of the amikacin infusion. This is a send out but delay in results will be insignificant as this will inform how much to give for the next dose which will not be for a minimum of 48 hours. * Will obtain trough level 48 hours after the peak level. This is a send- out, but since interval may need to be longer than 48 hours 2nd KEERTHI this is less likely to impact care 04/29 * Trough level ordered this AM. Called [facility] lab and spoke w Adolfo this AM - this is a send out to [facility] w results faxed to us ~2-3 hours after they receive it. [employer] had already been called and requested. Hopefully, will receive results today. * SCr increased today to 1.98 mg/dL * Discussed dosing w [facility] pharmacist (Sergo) - KEERTHI noted, but as long as trough is <4, OK to re-dose at full 1200 mg when appropriate. Plan to adjust frequency based on trough levels and dose based on peak levels. Will obtain peak level with next dose, to be drawn 30 minutes after completion of the infusion * Called lab at 1500 - no results from [facility], yet. They will fax result to us. Asked lab to monitor for result periodically tonight and call pharmacy [phone] if/when result is obtained * ID consulted - spoke w Dr. Elmore at 1530 - unclear what regimen is, but may be combo of rifabutin, tedizolid, amikacin, and ethambutol. Currently only ethambutol ordered / being administered because we're waiting on amikacin level and waiting on [facility] to bring in rifabutin and tedizolid - unclear if they have been asked to do so. Per Dr. Elmore - partial regimen likely more of a risk due to increased resistance, which is apparently already an issue for this patient with macrolide resistance. Unclear if tedizolid is part of the regimen, although it can be used for MAC. Will therefore hold amikacin tonight - Dr. Whitman in agreement. She noted intent to call [facility] and speak with the [facility] directly today. 04/28 * 43 year old M receiving IV amikacin for treatment of chronic MAC infection. * Spoke with [facility] RN today, dosing/regimen verified. Patient is receiving amikacin 1200mg (~23mg/kg/dose) IV daily on . Last dose was 04/25 @ 0837. * Therapy was initiated by [facility] medical transport specialist Dr. Ascencion Powers (being managed by Dr. Powers) on 04/21/24. Regimen was recommended by [facility]. * Confirmed that no levels have been drawn since therapy initiated. * Patient with KEERTHI currently (SCr 1.67-->1.45), baseline ~ 1mg/dl. Plan Amikacin * Goal trough < 5 mcg/mL * Goal peak for intermittent TIW dosin-80 mcg/mL * Random level ordered for today * Trough level ordered for tomorrow Pharmacy will continue to follow and will adjust dose/frequency as necessary. Thank you.
--- NOTE | 2024-04-30 16:38 | Infectious Disease Progress Nt ---
Date of Service April 30, 2024 Assessment & Plan (1) Multifocal pneumonia: (2) Bronchiectasis: (3) Acute on chronic respiratory failure with hypoxia: (4) Cachexia associated with AIDS: (5) Mycobacterium avium complex: Plan This is a 43 year old man with pmh HIV/AIDS ( CD4, 142/11.9% on 04/21/24 , VL UD per report) , on truvada/dolutegravir and Bactrim prophylaxis, PJP pneumonia (2019), CMV infection, disseminated MAC infection, incomplete adherence to medications, prisoner at [facility] presents for acute shortness of breath. He was initially diagnosed with MAC infection in 11/2021 at [facility] where blood cultures grew MAC . He was started on ethambutol and azithromycin for 6 months until 07/2022. He was not adherent w/azithromycin and ethambutol from 07/2022- 06/2023 as he thought that the ethambutol may have been causing visual changes. In 05/2023 MAC grew in multiple sputum cultures. He was restarted on Ethambutol/Azithromycin. He was admitted to [facility] multiple times. He was last admitted 01/31-02/03 for abdominal distention . CTAP showed severe extrinsic compression of the main vein due to ill-defined 3.7 cm soft tissue mass and multifocal retroperitoneal and mesenteric soft tissues. 02/01/2024 peritoneal fluid grew 3+ AFB on smear and culture grew MAC (Moxifloxacin resistant, clarithromycin sensitive, amikacin IV resistant, linezolid resistant). He was transferred to [facility] 02/03-03/06 for further management for chylous ascites. His ill-defined retroperitoneal mass was biopsied and was negative for malignancy/lymphoma. He had rapid re-accumulation of ascites and required a tunneled ascites catheter. 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 AFB stain 4+ AFB, cultures grew MAC, ascites fluid PCR positive for Estrella albicans . Given interruptions in treatment and possible monotherapy with azithromycin there was concern for possible resistant MAC. Also with his high burden of MAC , the decision was made to treat him with a 4 drug regimen in 02/2024 until sensitivities were back. He was started on azithromycin, ethambutol, levofloxacin and rifabutin pending sensitivities. He completed 2 weeks of treatment for fungal ascites. His MAC/HIV is being treated at [facility] in conjunction with [facility] ( Dr Tes) per report. He is currently on Tedezolid, Rifabutin, Ethambutol and Amikacin. Amikacin was started last week. It is unclear if pt has recent mycobacterium sensitivities available and if medication changes were made based on these results In the ED temperature 35.6, HR 91, RR 17, BP 90/71, O2 sats 98% on BiPAP. Labs WBC 14.41, platelets 136, BUN 20, creatinine 1.45. Respiratory viral panel negative. Chest x-ray shows Emphysema with chronic interstitial coarsening. On CT chest there is a focus of groundglass opacity of the left lower lobe concerning for atypical infection. Emphysema is noted. He was continued on Biktarvy, bactrim, ethambutol. Amikacin held as KEERTHI and levels pending. Tedizolid and Rifabutin not available her and pending receipt of his meds from his facility. ID consulted for hypoxia , HiV, MAC infection . On my initial exam he is comfortable and on RA. His shortness of breath has improved. He denies fever, chills, sweats, cough, nausea, rash, visual changes, night sweats, vomiting or abdominal pain or drainage. He admits to sick contacts in the [facility]. 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 It has since resolved. He is now back to his baseline and is now on room air. Unclear cause of changes in his CT chest. Could be secondary to bacterial pneumonia, atypical infections in an immunocompromised patient including PJP/fungal infections. Could also represent progression of his MAC, but less likely as he improved quickly. At this time it is unclear what the sensitivity of his most recent MAC samples. Based on the 02/01/24 ascites fluid there is resistance to fluoroquinolones as well as amikacin. Clarithromycin seems to be sensitive however he is not on azithromycin. He remains on amikacin in the outpt setting. Will need to get additional information from his ID provider to clarify his MAC regimen. -04/28 Held ethambutol as he is unable to take all his MAC therapy ( rifabutin/tedizolid unavailable, pending his facility providing tomorrow). Will restart once all medication available. Concern if he continues on partial regimen, will develop further resistance. Amikacin on hold as levels pending in setting of keerthi . Cr 1.98. Amikacin recently started outpt last week( need more info from his ID doc, unclear MAC is S based on prior testing) Reviewed available records from [facility] admission 02/04/24-03/06/24) -04/29, KEERTHI worsened. Cr 2.16 ( 1.98), WBC 16.85 ( 15.13). Restarted amikacin ( levels reviewed with pharm), ethambutol as well as Rifabutin and tedezolid as meds now available 04/30 , cr 2.10 Recommendations - Continue Truvada/ Dolutegravir. truvada dosed q48h given KEERTHI ( d/w pharma cy) - continue bactrim ppx -Continue ethambutol as remainder of MAC therapy now available -Continue tedizolid and rifabutin -continue Amikacin -Follow up Crypto ag, PJP sputum, histo urine ag, fungitell - Continue Doxycycline per pulm - Monitor WBC and Cr Pending additional information on his MAC regimen, MAC susceptibility from his ID doc ( Dr. Tse). unclear if current MAC regimen is based on recent MAC susceptibilities. If based on 01/2024 susceptibilities, may need to dc amikacin and start azithromycin if no h/o Azith/clarith R documented.. Need more info D/W hospitalist, hospitalist title i paraprofessional re plan and obtaining additional micro/medication/ID info. ID will continue to follow Aisha Elmore MD, MPH Infectious Disease [facility], [facility] Call [phone] with questions Admission and Anticipated Discharge Date Admission Date: April 27, 2024 Subjective This patient recommendation is based on a telemedicine consult request which was completed asynchronously through chart review and information provided by the primary physician. The patient was not seen or examined today. The evaluation is consultative in nature and all patient care and treatment decisions can either be accepted or rejected by the patient's primary hospital-based treating physician using their own independent medical judgment for their patient. Time Spent Reviewing Chart: 11 - 20 minutes cr 2.10 Pending outpt ID records to verify MAC therapy and most recent Mac susceptibility Afebrile, on RA Results & Data Vital Signs (Past 12 Hours) Vital Signs Temp Pulse Pulse Resp BP Pulse Ox O2 Del Method 04/30/24 15:28 36.7 C 93 H 18 96/69 L 99 Room Air 04/30/24 14:41 89 04/30/24 11:23 36.9 C 99 H 18 95/67 L 100 Room Air 04/30/24 10:37 Room Air 04/30/24 08:11 36.7 C 107 H 18 102/71 98 Room Air 04/30/24 07:17 106 H Laboratory Results 04/30/24 04/29/24 04/28/24 05:53 16:57 05:53 APTT 27 PTT Ratio 1.0 Sodium 142 Potassium 3.1 L Chloride 116 H Carbon Dioxide 20 L Anion Gap 6 BUN 24 H Creatinine 2.10 H Est Cr Clr Drug Dosing 33.3 eGFR 39.81 BUN/Creatinine Ratio 11.4 Glucose 99 Calcium 7.8 L Phosphorus 1.3 L* Magnesium 1.5 L Albumin 2.4 L Amikacin Peak Random Amikacin Diagnostic Findings Microbiology 04/26/24 22:58 Blood Aerobic Blood Culture - Preliminary No growth in Aerobic bottle after 48 hours. 04/26/24 22:58 Blood Anaerobic Blood Culture - Preliminary No growth in Anaerobic bottle after 48 hours. 04/26/24 22:35 Blood Aerobic Blood Culture - Preliminary No growth in Aerobic bottle after 48 hours. 04/26/24 22:35 Blood Anaerobic Blood Culture - Preliminary No growth in Anaerobic bottle after 48 hours. Medications Administered Home Medications Medication Instructions Recorded Confirmed Last Taken A&D Ointment 1 applic topical DAILY 02/01/24 04/27/24 Unknown Lactobacillus acidophilus 0 mg PO BID 02/01/24 04/27/24 1 Day Ago (Acidophilus capsule) ~04/26/24 Robitussin Max Stren 100/5ml 15 ml PO QID PRN .cough 02/01/24 04/27/24 1 Day Ago ~04/26/24 Vitamin E Lotion 1 applic topical TID 02/01/24 04/27/24 Unknown acetaminophen 325 mg tablet 650 mg PO QID PRN Pain 02/01/24 04/27/24 1 Day Ago (Tylenol) ~04/26/24 brimonidine 0.15 % eye drops 1 drp OPL BID 02/01/24 04/27/24 Unknown cholecalciferol (vitamin D3) 25 25 mcg PO DAILY 02/01/24 04/27/24 1 Day Ago mcg (1,000 unit) tablet (Vitamin ~04/26/24 D3) cholestyramine (with sugar) 4 gram 4 g PO BID 02/01/24 04/27/24 1 Day Ago powder for susp in a packet ~04/26/24 (Questran) difluprednate 0.05 % eye drops 1 drp OPL .6XSDAY 02/01/24 04/27/24 1 Day Ago ~04/26/24 difluprednate 0.05 % eye drops 1 drp OPR BID 02/01/24 04/27/24 1 Day Ago ~04/26/24 ergocalciferol (vitamin D2) 1,250 1,250 mcg PO .WEEKLY 02/01/24 04/27/24 1 Day Ago mcg (50,000 unit) capsule (Vitamin ~04/26/24 D2) ethambutol 100 mg tablet 50 mg PO DAILY 02/01/24 04/27/24 1 Day Ago ~04/26/24 ethambutol 400 mg tablet 800 mg PO DAILY 02/01/24 04/27/24 1 Day Ago ~04/26/24 loperamide 2 mg tablet (Imodium 2 mg PO TID PRN Diarrhea 02/01/24 04/27/24 Unknown A-D) midodrine 5 mg tablet 5 mg PO BID 02/01/24 04/27/24 1 Day Ago ~04/26/24 multivitamin 1 tab PO DAILY 02/01/24 04/27/24 1 Day Ago ~04/26/24 sulfamethoxazole 800 1 tab PO DAILY 02/01/24 04/27/24 1 Day Ago mg-trimethoprim 160 mg tablet ~04/26/24 (Bactrim DS) umeclidinium 62.5 mcg/actuation 1 inh inhalation DAILY 02/01/24 04/27/24 1 Day Ago blister powder for inhalation ~04/26/24 (Incruse Ellipta) amikacin 250 mg/mL injection 1,200 mg IV 3XWK 04/27/24 04/27/24 04/25/24 solution dolutegravir 50 mg tablet (Tivicay) 50 mg PO BID 04/27/24 04/27/24 1 Day Ago ~04/26/24 emtricitabine 200 mg-tenofovir 1 tab PO DAILY 04/27/24 04/29/24 1 Day Ago disoproxil fumarate 300 mg tablet ~04/26/24 (Truvada) enoxaparin 30 mg/0.3 mL 30 mg subcut 1XD 04/27/24 04/27/24 1 Day Ago subcutaneous solution ~04/26/24 folic acid 1 mg tablet 1 mg PO DAILY 04/27/24 04/27/24 1 Day Ago ~04/26/24 pantoprazole 40 mg tablet,delayed 40 mg PO DAILY 04/27/24 04/27/24 1 Day Ago release ~04/26/24 pyridoxine (vitamin B6) 50 mg 50 mg PO DAILY 04/27/24 04/27/24 1 Day Ago tablet ~04/26/24 rifabutin 150 mg capsule 300 mg PO DAILY 04/27/24 04/27/24 1 Day Ago ~04/26/24 tedizolid 200 mg tablet (Sivextro) 200 mg PO DAILY 04/27/24 04/27/24 1 Day Ago ~04/26/24 Active Medications Generic Name Dose Route Start Last Admin Trade Name Jakeq PRN Reason Stop Dose Admin Brimonidine Tartrate 1 drops 04/27/24 09:00 04/30/24 09:11 Brimonidine Tartrate-P 0.15% 5 Ml Btl OPL 05/27/24 08:59 1 drops BID JANES Administration Cholestyramine Resin 4 gm 04/27/24 10:00 04/30/24 09:08 Cholestyramine Light 4 Gm Pkt PO 05/27/24 09:59 4 gm BID@1000,2200 JANES Administration Dolutegravir Sodium 50 mg 04/27/24 09:00 04/30/24 09:10 Dolutegravir Sodium 50 Mg Tab PO 05/27/24 08:59 50 mg BID JANES Administration Protocol Doxycycline Hyclate 100 mg 04/27/24 09:45 04/30/24 09:10 Doxycycline Hyclate 100 Mg Cap PO 05/03/24 23:59 100 mg BID JANES Administration Enoxaparin Sodium 30 mg 04/27/24 09:00 04/30/24 09:07 Enoxaparin Inj 30 Mg/0.3 Ml Syr SQ 05/27/24 08:59 Not Given QAM JANES Ethambutol HCl 50 mg 04/27/24 09:00 04/30/24 09:15 Ethambutol Hcl 100 Mg Tab PO 05/27/24 08:59 50 mg DAILY JANES Administration Ethambutol HCl 800 mg 04/27/24 09:00 04/30/24 09:14 Ethambutol Hcl 400 Mg Tab PO 05/27/24 08:59 800 mg DAILY JANES Administration Folic Acid 1 mg 04/27/24 09:00 04/30/24 09:07 Folic Acid 1 Mg Tab PO 05/27/24 08:59 1 mg DAILY JANES Administration Guaifenesin 600 mg 04/27/24 09:00 04/30/24 09:10 Guaifenesin 600 Mg Tabcr PO 05/27/24 08:59 Not Given Q12 JANES Heparin Sodium (Porcine) 5 ml 04/27/24 05:04 04/30/24 09:06 Heparin 100 Unit/Ml 5ml Flush FLUSH 05/27/24 05:03 5 ml PRN PRN Administration Flush Pantoprazole Sodium 40 mg in 10 mls @ 5 mls/min 04/30/24 09:00 04/30/24 09:05 Protonix IV 05/30/24 08:59 5 mls/min DAILY JANES Administration Lactobacillus Acidophilus 625 mg 04/27/24 09:00 04/30/24 09:10 Advanced Probiotic 625 Mg Capsule PO 05/27/24 08:59 625 mg BID JANES Administration Midodrine 5 mg 04/27/24 09:00 04/30/24 09:06 Midodrine Hcl 2.5 Mg Tab PO 05/27/24 08:59 5 mg BID@0900,1700 JANES Administration Miscellaneous 1 each 04/27/24 08:00 04/30/24 15:57 Difluprednate 0.05 % Drops - Order Awaiting Action N/A 05/27/24 07:59 Not Given QS JANES Miscellaneous 1 each 04/27/24 08:00 04/30/24 15:57 Difluprednate 0.05 % Drops - Order Awaiting Action N/A 05/27/24 07:59 Not Given QS JANES Multivitamins 1 tab 04/27/24 09:00 04/30/24 09:10 Multivitamin Tab PO 05/27/24 08:59 1 tab DAILY JANES Administration Pyridoxine HCl 50 mg 04/27/24 09:00 04/30/24 09:09 Pyridoxine Hcl 50 Mg Tab PO 05/27/24 08:59 50 mg DAILY JANES Administration Rifabutin 300 mg 04/29/24 16:00 04/30/24 09:13 Rifabutin 150 Mg Capsule PO 05/29/24 15:59 300 mg DAILY JANES Administration Tedizolid Phosphate 200 mg 04/29/24 16:00 04/30/24 09:12 Tedizolid Phosphate 200 Mg Tablet PO 05/29/24 15:59 200 mg DAILY JANES Administration Trimethoprim/Sulfamethoxazole 1 tab 04/27/24 09:00 04/30/24 09:09 Sulfamethoxazole/Trimethoprim Ds 800/160mg Tab PO 05/27/24 08:59 1 tab DAILY JANES Administration Umeclidinium [place] 1 puffs 04/27/24 09:00 04/30/24 09:16 Umeclidinium [place] 62.5mcg/Blister 7 Puffs/Inhaler INH 05/27/24 08:59 Not Given DAILY JANES Vitamin D 25 mcg 04/27/24 09:00 04/30/24 09:07 Cholecalciferol 25 Mcg (1000 Units) Tab PO 05/27/24 08:59 25 mcg DAILY JANES Administration
[2024-05-01 07:03] LABS: Albumin Level 2.4 gm/dl (3.4-5.0); BUN Creatinine Ratio 12.9 (10-20); Calcium 7.6 mg/dl (8.6-10.3); Creatinine Clr Calc Pharmacy 40.3 ml/min; Phosphorus 1.8 mg/dl (2.5-4.9); Potassium 3.5 mmol/L (3.5-5.1)
[2024-05-01] MEDS: EMTRICITABINE/TENOFOVIR TAB PO SCH (08:34)
[2024-05-01] MEDS ORDERED: POTASSIUM PHOS 3 MMOL/1 ML INFUSION IV STA (09:06)
[2024-05-01] MEDS: POT PHOSPHATE MONOBASIC W/ SOD TAB PO SCH (09:42)
--- NOTE | 2024-05-01 10:38 | Nephrology Progress Note ---
Date of Service May 01, 2024 Assessment & Plan (1) Acute kidney injury: (2) Hypokalemia: (3) Metabolic acidosis: (4) Cachexia associated with AIDS: (5) Severe protein-calorie malnutrition: (6) Multifocal pneumonia: (7) Anemia: (8) Mycobacterium avium complex: Plan 43 Y O male with no history of CKD, baseline creatinine 1.0-1.1, history of HIV/AIDS with multiple complications including disseminated MAC infection with pneumonia, ascites, admitted with shortness of breath and acute kidney injury. Kidney function has been worsening over last 3 days, on admission creatinine 1.6 worsened to 2.2 this morning associated with hypokalemia and metabolic acidosis. Has been significantly hypertensive since admission which slightly improved. Urinalysis with low-grade proteinuria and microscopic hematuria. CT abdomen pelvis in January 2024 showed otherwise normal kidney. KEERTHI most likely secondary to ATN with hypotension, intravascular volume depletion with significant ascites, diarrhea, unlikely toxicity from amikacin which he received 3 days but amikacin random level was only 2.4 mcg/ml. Kidney function has been improving slowly but continues to have multiple electrolyte abnormality with diarrhea. -- Increase fluid intake to try to keep in positive balance with ongoing diarrhea. -- Start on potassium phosphate 15 mmol IV Admission and Anticipated Discharge Date Admission Date: April 27, 2024 Arsh Pimentel was seen and evaluated this morning. He denies any specific symptoms but reports ongoing diarrhea. Shortness of breath completely resolved. Blood pressure actually improved and stable. Kidney function continues to improve slowly but still has multiple electrolyte abnormality with ongoing diarrhea. Review of Systems Review of Systems: Detailed review of system was done and pertinent positives and negatives are mentioned above. Physical Exam Constitutional: WD/WN, vitals as above + cachectic, + malnourished and + un derweight; no acute distress Eyes: + anicteric sclerae Respiratory: Auscultation: lungs clear to auscultation bilaterally Cardiovascular: Rate/Rhythm: regular rate and regular rhythm Heart Sounds: normal S1 and normal S2 Extremities: no edema Musculoskeletal: muscle wasting Skin: no rashes, warm and dry Neurologic: no focal motor deficits Psychiatric: Orientation: alert and oriented x 3 Affect: euthymic affect Results & Data Vital Signs (Past 12 Hours) Vital Signs Temp Pulse Pulse Pulse Resp BP BP 05/01/24 09:44 104 H 05/01/24 09:44 05/01/24 07:52 116 H 18 120/80 05/01/24 03:17 36.8 C 106 H 18 111/79 05/01/24 00:17 04/30/24 23:48 36.9 C 118 H 20 98/65 L Pulse Ox O2 Del Method 05/01/24 09:44 05/01/24 09:44 Room Air 05/01/24 07:52 100 Room Air 05/01/24 03:17 98 Room Air 05/01/24 00:17 Room Air 04/30/24 23:48 100 Room Air PG Care Time/CCT Total # of Minutes Spent Total Time Spent with Patient: Total time spent is greater than 50% in coordination of care (as documented) at patient's floor/unit and/or counseling patient: Coding Level of Care Code 45330 SUB INP/OBS CARE 2/35MIN Diagnoses Acute kidney injury N17.9 Hypokalemia E87.6 Metabolic acidosis E87.20 Cachexia associated with AIDS B20; E88.A Severe protein-calorie malnutrition E43 Multifocal pneumonia J18.9 Anemia D64.9 Mycobacterium avium complex A31.0
[2024-05-01] MEDS: ALBUMIN 25% 25 GM/100 ML VIAL IV ONE (11:17)
--- NOTE | 2024-05-01 13:18 | Pharmacy Report ---
Pharmacy PK ABX Note - Date of Service May 01, 2024 - Assessment and Plan Assessment 05/01 * Peak amikacin level yesterday of 70.6 mcg/mL is therapeutic. However, this level is likely falsely elevated due to being drawn early. See 04/30. Will keep same dose as previous and assess another peak with next dose. * SCr improving today to 1.7 mg/dL * Random level yesterday 9.7 mcg/mL. * Trough ordered for 1545 today. * D/w Dr. Elmore - trough level will not come back until likely tomorrow AM. Based on trend in last two levels, anticipate trough is likely to be therapeutic, but interpretation is complicated by not drawing peak at the correct time and changing SCr. Discussed risk/benefit of giving a dose today vs. delaying until tomorrow AM - Dr. Elmore noted would give today. 04/30 * Amikacin admin at 1545 yesterday. Infusion completed at 1647. Peak was to be drawn 30 minutes later at 1717 and phlebotomy was called and notified of the importance of this timing. However, level was drawn 20 minutes too early at 1657, prior to the distribution phase of amikacin completing. Level therefore will be falsely elevated, but not able to tell how falsely elevated since it will be affected both by distribution and elimination. * Will order a random level today. It may not necessarily be helpful to back- calculate a peak, but could give an idea of patient-specific ke when evaluated in conjunction with trough tomorrow. However, patient-specific calculated ke can only be interpreted in the context of stable renal function, which is also potentially an issue 04/29 * Case discussed w Dr. Elmore again today with the following assessment/plan: * Rifabutin and tedizolid have been obtained from [facility]. * SCr continues to worsen, now 2.16 mg/dL w eCrCL 32 * Amikacin trough level yesterday AM was therapeutic at 2.4 mcg/mL (note - results available in scanned reports section, not in laboratory section). * [facility] - is 1 tab (200/300) po *daily*. Med history adjusted (originally noted BID). However, this is now renally adjusted to q48h. If it needs to be held 2nd worsening renal function, dolutegravir likely will also need to be held * Plan as of now is to resume the prior outpatient regimen (ethambutol, rifabutin, tedizolid, and amikacin), pending additional outpatient data / cultures * Full 1200 mg dose of amikacin today despite KEERTHI noted - dose relates to *efficacy* / peak. However, anticipate interval may need to be lengthened due to KEERTHI as interval relates to *toxicity* / trough. * Will obtain peak level 30 minutes after the end of the amikacin infusion. This is a send out but delay in results will be insignificant as this will inform how much to give for the next dose which will not be for a minimum of 48 hours. * Will obtain trough level 48 hours after the peak level. This is a send- out, but since interval may need to be longer than 48 hours 2nd KEERTHI this is less likely to impact care 04/28 * Trough level ordered this AM. Called [facility] lab and spoke w Adolfo this AM - this is a send out to [facility] w results faxed to us ~2-3 hours after they receive it. [employer] had already been called and requested. Hopefully, will receive results today. * SCr increased today to 1.98 mg/dL * Discussed dosing w [facility] pharmacist ([facility]erg[facility]) - KEERTHI noted, but as long as trough is <4, OK to re-dose at full 1200 mg when appropriate. Plan to adjust frequency based on trough levels and dose based on peak levels. Will obtain peak level with next dose, to be drawn 30 minutes after completion of the infusion * Called lab at 1500 - no results from [facility], yet. They will fax result to us. Asked lab to monitor for result periodically tonight and call pharmacy [phone] if/when result is obtained * ID consulted - spoke w Dr. Elmore at 1530 - unclear what regimen is, but may be combo of rifabutin, tedizolid, amikacin, and ethambutol. Currently only ethambutol ordered / being administered because we're waiting on amikacin level and waiting on [facility] to bring in rifabutin and tedizolid - unclear if they have been asked to do so. Per Dr. Elmore - partial regimen likely more of a risk due to increased resistance, which is apparently already an issue for this patient with macrolide resistance. Unclear if tedizolid is part of the regimen, although it can be used for MAC. Will therefore hold amikadavina talbert - Dr. Whitman in agreement. She noted intent to call [facility] and speak with the [facility] directly today. 04/27 * 43 year old M receiving IV amikacin for treatment of chronic MAC infection. * Spoke with [facility] RN today, dosing/regimen verified. Patient is receiving amikacin 1200mg (~23mg/kg/dose) IV daily on . Last dose was 04/25 @ 0837. * Therapy was initiated by [facility] medical representative Dr. Ascencion Powers (being managed by Dr. Powers) on 04/21/24. Regimen was recommended by Berna WILSON. * Confirmed that no levels have been drawn since therapy initiated. * Patient with KEERTHI currently (SCr 1.67-->1.45), baseline ~ 1mg/dl. Plan Amikacin * Goal trough < 5 mcg/mL * Goal peak for intermittent TIW dosin-80 mcg/mL * Trough @ 1545 today * Amikacin 1200 mg scheduled for 1600 today. * Will wait to order peak until amikacin actually administered. Peak should be drawn between 1 hr 32 minutes to 1 hr 42 minutes timed from the *start* of the 1 hr 2 min amikacin infusion Pharmacy will continue to follow and will adjust dose/frequency as necessary. Thank you.
[2024-05-01] MEDS: DEXTROSE 5% IV ONE (16:01)
[2024-05-01] MEDS: AMIKACIN SULFATE IV ONE (16:01)
[2024-05-01] MEDS: [UNRECOGNIZED DRUG - OTHER] ONE (16:04)
--- NOTE | 2024-05-01 16:05 | Hospitalist Progress Note ---
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 Plan to complete a 7-day course->Pulmonary signed off Acute kidney injury Normal renal function at baseline Nephrology consulted. considered possible atn from illness, hydrated, concern with ascites and consideration of ascitic fluid removal It could be postrenal due to ascites causing obstruction. 2L Ascitic fluid removed 04/29. 05/01 Disseminated MAC with retroperitoneal mass and recurrent ascites/HIV Patient was diagnosed with HIV in 2013., Has been on Biktarvy since 2021 Regimen changed recently to Tedezolid, Rifabutin, Ethambutol and Amikacin. Amikacin renal dose . Amikacin level still pending( recent information states [facility] ID culture showed resistence to azithromycin and levafloxacin ) While at [facility] upon recent transfer, CT abdomen showed severe extrinsic compression of portal vein due to soft tissue mass and multifocal retroperitoneal and mesenteric soft tissue. Biiopsy of mass and Peritoneal fluid grew MAC. Peritoneal fluid was also positive for Estrella albicans which was treated with a 2-week course of fluconazole. A tunneled ascites drain was placed for recurrent ascites that was being accessed at the present to drain ascitic fluid. Infectious disease involved His surgical pathology and flow cytometry did not show any evidence of malignancy/lymphoma but did show evidence of MAC in the peritoneum which is likely causing his recurrent ascites. Hypotension-initial concern for sepsis ruled out Patient is cachectic/sarcopenic and has baseline hypotension Blood pressure stable but low and the patient is feeling improved, but still too weak to even try to use bedside commode Discontinue IV hydrocortisone Continue to hold spironolactone Overall pt is declining, he is unrealistic about his recovery, he is not open to discuss palliative care, once ID has final recs, likely return to [facility] 05/02 DVT Prophylaxis- Continue lovenox 30mg SQ daily Admission and Anticipated Discharge Date Admission Date: April 27, 2024 Subjective pt was in a down mood, when asked about what his goals are he said " i aint done yet, Im gonna get better" planned on removal of ascitic fluid via pleurex 05/01, no more than 2 L and albumin 25 given Physical Exam Physical Exam: distended dull abdomen, drain in place, moderately painful pre drainage car is regular lungs are clear Results & Data Results & Data Vital Signs (Past 12 Hours) Vital Signs Temp Pulse Pulse Resp BP BP Pulse Ox 05/01/24 15:00 95 H 05/01/24 11:52 98.2 F 108 H 20 125/65 98 05/01/24 09:44 104 H 05/01/24 09:44 05/01/24 07:52 116 H 18 120/80 100 O2 Del Method 05/01/24 15:00 05/01/24 11:52 Room Air 05/01/24 09:44 05/01/24 09:44 Room Air 05/01/24 07:52 Room Air Laboratory Results review chemistry review outside ID notes from [facility] PG Care Time/CCT Total # of Minutes Spent Total Time Spent with Patient: Total time spent is greater than 50% in coordination of care (as documented) at patient's floor/unit and/or counseling patient: Coding Level of Care Code 92444 SUB INP/OBS CARE 2/35MIN Diagnoses Acute on chronic respiratory failure with hypoxia J96.21 HIV (human immunodeficiency virus infection) Z21 HIV symptom status: unspecified Mycobacterium avium complex A31.0 Cachexia associated with AIDS B20; E88.A Emphysema lung J43.9 (2) HIV (human immunodeficiency virus infection) HIV symptom status: unspecified Qualified Code(s): Z21 - Asymptomatic human immunodeficiency virus [HIV] infection status
--- NOTE | 2024-05-01 16:44 | Infectious Disease Progress Nt ---
Date of Service May 01, 2024 Assessment & Plan (1) Multifocal pneumonia: (2) Bronchiectasis: (3) Acute on chronic respiratory failure with hypoxia: (4) Cachexia associated with AIDS: (5) Mycobacterium avium complex: Plan This is a 43 year old man with pmh HIV/AIDS ( CD4, 142/11.9% on 04/21/24 , VL UD per report) , on truvada/dolutegravir and Bactrim prophylaxis, PJP pneumonia (2019), CMV infection, disseminated MAC infection, incomplete adherence to medications, prisoner at [facility] presents for acute shortness of breath. He was initially diagnosed with MAC infection in 11/2021 at [facility] where blood cultures grew MAC . He was started on ethambutol and azithromycin for 6 months until 07/2022. He was not adherent w/azithromycin and ethambutol from 07/2022- 06/2023 as he thought that the ethambutol may have been causing visual changes. In 05/2023 MAC grew in multiple sputum cultures. He was restarted on Ethambutol/Azithromycin. He was admitted to [facility] multiple times. He was last admitted 01/31-02/03 for abdominal distention . CTAP showed severe extrinsic compression of the main vein due to ill-defined 3.7 cm soft tissue mass and multifocal retroperitoneal and mesenteric soft tissues. 02/01/2024 peritoneal fluid grew 3+ AFB on smear and culture grew MAC (Moxifloxacin resistant, clarithromycin sensitive, amikacin IV resistant, linezolid resistant). He was transferred to [facility] 02/03-03/06 for further management for chylous ascites. His ill-defined retroperitoneal mass was biopsied and was negative for malignancy/lymphoma. He had rapid re-accumulation of ascites and required a tunneled ascites catheter. 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 AFB stain 4+ AFB, cultures grew MAC, ascites fluid PCR positive for Estrella albicans . Given interruptions in treatment and possible monotherapy with azithromycin there was concern for possible resistant MAC. Also with his high burden of MAC , the decision was made to treat him with a 4 drug regimen in 02/2024 until sensitivities were back. He was started on azithromycin, ethambutol, levofloxacin and rifabutin pending sensitivities. He completed 2 weeks of treatment for fungal ascites. His MAC/HIV is being treated at [facility] in conjunction with [facility] ( Dr Tse) per report. He is currently on Tedezolid, Rifabutin, Ethambutol and Amikacin. Amikacin was started last week. It is unclear if pt has recent mycobacterium sensitivities available and if medication changes were made based on these results In the ED temperature 35.6, HR 91, RR 17, BP 90/71, O2 sats 98% on BiPAP. Labs WBC 14.41, platelets 136, BUN 20, creatinine 1.45. Respiratory viral panel negative. Chest x-ray shows Emphysema with chronic interstitial coarsening. On CT chest there is a focus of groundglass opacity of the left lower lobe concerning for atypical infection. Emphysema is noted. He was continued on Biktarvy, bactrim, ethambutol. Amikacin held as KEERTHI and levels pending. Tedizolid and Rifabutin not available her and pending receipt of his meds from his facility. ID consulted for hypoxia , HiV, MAC infection . On my initial exam he is comfortable and on RA. His shortness of breath has improved. He denies fever, chills, sweats, cough, nausea, rash, visual changes, night sweats, vomiting or abdominal pain or drainage. He admits to sick contacts in the [facility]. 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 It has since resolved. He is now back to his baseline and is now on room air. Unclear cause of changes in his CT chest. Could be secondary to bacterial pneumonia, atypical infections in an immunocompromised patient including PJP/fungal infections. Could also represent progression of his MAC, but less likely as he improved quickly. Based on the 02/01/24 ascites fluid there is resistance to fluoroquinolones as well as amikacin. Clarithromycin seems to be sensitive however he is not on azithromycin. He remains on amikacin in the outpt setting. Requested additional information from his ID provider to clarify his MAC regimen and most recent MAC susceptibilities. -04/28 Held ethambutol as he is unable to take all his MAC therapy ( rifabutin/tedizolid unavailable, pending his facility providing tomorrow). Will restart once all medication available. Concern if he continues on partial regimen, will develop further resistance. Amikacin on hold as levels pending in setting of keerthi . Cr 1.98. Amikacin recently started outpt last week( need more info from his outpatient ID doc ). Reviewed available records from [facility] admission 02/04/24-03/06/24) -04/29, KEERTHI worsened. Cr 2.16 ( 1.98), WBC 16.85 ( 15.13). Amikacin peak 04/29 2.4 . Restarted amikacin ( levels reviewed with pharm), ethambutol as well as R ifabutin and tedezolid as meds now available -04/30 , cr 2.10 - 05/01, Cr 1.7 , crcl 40. Received most recent ID note from 04/01/24. It appears that the mycobacterium that grew from retroperitoneal mass biospy on 02/22/24 is moxifloxacin R,clarithromycin R, Amikacin Susceptible, I to linezolid. Based on those sensitivities the following changes were made by his ID provider : Levaquin and azithromycin were discontinued. Ethambutol 900 mg daily continued, rifabutin 300 mg p.o. daily continued. He was started on amikacin 25 mg/kg 3 times a day IV and started on tedizolid 200 mg p.o. daily. Plan was for weekly BUN/creatinine and amikacin levels. Scheduled to follow-up with ophthalmology to monitor for ethambutol toxicity. It was felt that with the sensitivity results (resistance to azithromycin and rosa quinolones), MAC treatment would be a great challenge. They wanted at least 2 or more active agents for treatment of disseminated MAC, so tedezolid was added/ Recommendations - Continue Truvada. Truvada currently dosed q48h given KEERTHI ( cr cl ~ 40) Once crcl >50 dose Truvada [id number] as prior to KEERTHI. -Continue Dolutegravir 50 mg po BID - Bontinue bactrim ppx -Continue ethambutol, tedizolid and rifabutin -continue Amikacin based on pharm dosing/levels -Follow up Crypto ag, PJP sputum, histo urine ag, fungitell - Continue Doxycycline per pulm . Plan for 5 d - Monitor WBC ( last checked 04/29 and elevated at 16.85) and Cr I reviewed the recent ID outpatient note that was faxed. Reviewed most updated MAC sensitivities. Appreciate assistance of hospitalist and hospitalist chemical engineering technologist. Would fax over our MAC sensitivities to his ID providers ( sensi from 05/15/23 and 02/01/24) . I attempted to call the office but have not yet received a call back to discuss discrepancy in susceptibilities ID will sign off. Please call if pending studies positive. Close follow up with ID as scheduled. Aisha Elmore MD, MPH Infectious Disease ID Connect [facility], ID Division Call [phone] with questions Admission and Anticipated Discharge Date Admission Date: April 27, 2024 Subjective This patient recommendation is based on a telemedicine consult request which was completed asynchronously through chart review and information provided by the primary physician. The patient was not seen or examined today. The evaluation is consultative in nature and all patient care and treatment decisions can either be accepted or rejected by the patient's primary hospital-based treating physician using their own independent medical judgment for their patient. Time Spent Reviewing Chart: 31+ minutes WBC 16.85 ( on 04/29) Cr 1.7 (2.10) ( on 05/01) Afebrile, on RA ID outpt note reviewed Results & Data Vital Signs (Past 12 Hours) Vital Signs Temp Pulse Pulse Resp BP BP Pulse Ox 05/01/24 15:35 36.6 C 119 H 18 108/74 97 05/01/24 15:00 95 H 05/01/24 11:52 36.8 C 108 H 20 125/65 98 05/01/24 09:44 104 H 05/01/24 09:44 05/01/24 07:52 116 H 18 120/80 100 O2 Del Method 05/01/24 15:35 Room Air 05/01/24 15:00 05/01/24 11:52 Room Air 05/01/24 09:44 05/01/24 09:44 Room Air 05/01/24 07:52 Room Air Laboratory Results 05/01/24 04/30/24 05:42 13:07 Sodium 139 Potassium 3.5 Chloride 115 H Carbon Dioxide 19 L Anion Gap 5 BUN 22 Creatinine 1.70 H D Est Cr Clr Drug Dosing 40.3 eGFR 51.30 BUN/Creatinine Ratio 12.9 Glucose 84 Calcium 7.6 L Phosphorus 1.8 L Albumin 2.4 L Random Amikacin Medications Administered Home Medications Medication Instructions Recorded Confirmed Last Taken A&D Ointment 1 applic topical DAILY 02/01/24 04/27/24 Unknown Lactobacillus acidophilus 0 mg PO BID 02/01/24 04/27/24 1 Day Ago (Acidophilus capsule) ~04/26/24 Robitussin Max Stren 100/5ml 15 ml PO QID PRN .cough 02/01/24 04/27/24 1 Day Ago ~04/26/24 Vitamin E Lotion 1 applic topical TID 02/01/24 04/27/24 Unknown acetaminophen 325 mg tablet 650 mg PO QID PRN Pain 02/01/24 04/27/24 1 Day Ago (Tylenol) ~04/26/24 brimonidine 0.15 % eye drops 1 drp OPL BID 02/01/24 04/27/24 Unknown cholecalciferol (vitamin D3) 25 25 mcg PO DAILY 02/01/24 04/27/24 1 Day Ago mcg (1,000 unit) tablet (Vitamin ~04/26/24 D3) cholestyramine (with sugar) 4 gram 4 g PO BID 02/01/24 04/27/24 1 Day Ago powder for susp in a packet ~04/26/24 (Questran) difluprednate 0.05 % eye drops 1 drp OPL .6XSDAY 02/01/24 04/27/24 1 Day Ago ~04/26/24 difluprednate 0.05 % eye drops 1 drp OPR BID 02/01/24 04/27/24 1 Day Ago ~04/26/24 ergocalciferol (vitamin D2) 1,250 1,250 mcg PO .WEEKLY 02/01/24 04/27/24 1 Day Ago mcg (50,000 unit) capsule (Vitamin ~04/26/24 D2) ethambutol 100 mg tablet 50 mg PO DAILY 02/01/24 04/27/24 1 Day Ago ~04/26/24 ethambutol 400 mg tablet 800 mg PO DAILY 02/01/24 04/27/24 1 Day Ago ~04/26/24 loperamide 2 mg tablet (Imodium 2 mg PO TID PRN Diarrhea 02/01/24 04/27/24 Unknown A-D) midodrine 5 mg tablet 5 mg PO BID 02/01/24 04/27/24 1 Day Ago ~04/26/24 multivitamin 1 tab PO DAILY 02/01/24 04/27/24 1 Day Ago ~04/26/24 sulfamethoxazole 800 1 tab PO DAILY 02/01/24 04/27/24 1 Day Ago mg-trimethoprim 160 mg tablet ~04/26/24 (Bactrim DS) umeclidinium 62.5 mcg/actuation 1 inh inhalation DAILY 02/01/24 04/27/24 1 Day Ago blister powder for inhalation ~04/26/24 (Incruse Ellipta) amikacin 250 mg/mL injection 1,200 mg IV 3XWK 04/27/24 04/27/24 04/25/24 solution dolutegravir 50 mg tablet (Tivicay) 50 mg PO BID 04/27/24 04/27/24 1 Day Ago ~04/26/24 emtricitabine 200 mg-tenofovir 1 tab PO DAILY 04/27/24 04/29/24 1 Day Ago disoproxil fumarate 300 mg tablet ~04/26/24 (Truvada) enoxaparin 30 mg/0.3 mL 30 mg subcut 1XD 04/27/24 04/27/24 1 Day Ago subcutaneous solution ~04/26/24 folic acid 1 mg tablet 1 mg PO DAILY 04/27/24 04/27/24 1 Day Ago ~04/26/24 pantoprazole 40 mg tablet,delayed 40 mg PO DAILY 04/27/24 04/27/24 1 Day Ago release ~04/26/24 pyridoxine (vitamin B6) 50 mg 50 mg PO DAILY 04/27/24 04/27/24 1 Day Ago tablet ~04/26/24 rifabutin 150 mg capsule 300 mg PO DAILY 04/27/24 04/27/24 1 Day Ago ~04/26/24 tedizolid 200 mg tablet (Sivextro) 200 mg PO DAILY 04/27/24 04/27/24 1 Day Ago ~04/26/24 Active Medications Generic Name Dose Route Start Last Admin Trade Name Prosper PRN Reason Stop Dose Admin Brimonidine Tartrate 1 drops 04/27/24 09:00 05/01/24 08:36 Brimonidine Tartrate-P 0.15% 5 Ml Btl OPL 05/27/24 08:59 1 drops BID JANES Administration Cholestyramine Resin 4 gm 04/27/24 10:00 05/01/24 08:37 Cholestyramine Light 4 Gm Pkt PO 05/27/24 09:59 Not Given BID@1000,2200 JANES Dolutegravir Sodium 50 mg 04/27/24 09:00 05/01/24 08:29 Dolutegravir Sodium 50 Mg Tab PO 05/27/24 08:59 50 mg BID JANES Administration Protocol Doxycycline Hyclate 100 mg 04/27/24 09:45 05/01/24 08:34 Doxycycline Hyclate 100 Mg Cap PO 05/03/24 23:59 100 mg BID JANES Administration Emtricitabine/Tenofovir 1 tab 05/01/24 09:00 05/01/24 08:34 Emtricitabine/Tenofovir Tab PO 05/31/24 08:59 1 tab Q48H JANES Administration Protocol Enoxaparin Sodium 30 mg 04/27/24 09:00 05/01/24 08:31 Enoxaparin Inj 30 Mg/0.3 Ml Syr SQ 05/27/24 08:59 Not Given QAM JANES Ethambutol HCl 50 mg 04/27/24 09:00 05/01/24 08:28 Ethambutol Hcl 100 Mg Tab PO 05/27/24 08:59 50 mg DAILY JANES Administration Ethambutol HCl 800 mg 04/27/24 09:00 05/01/24 08:29 Ethambutol Hcl 400 Mg Tab PO 05/27/24 08:59 800 mg DAILY JANES Administration Folic Acid 1 mg 04/27/24 09:00 05/01/24 08:33 Folic Acid 1 Mg Tab PO 05/27/24 08:59 1 mg DAILY JANES Administration Guaifenesin 600 mg 04/27/24 09:00 05/01/24 08:34 Guaifenesin 600 Mg Tabcr PO 05/27/24 08:59 600 mg Q12 JANES Administration Heparin Sodium (Porcine) 5 ml 04/27/24 05:04 05/01/24 05:52 Heparin 100 Unit/Ml 5ml Flush FLUSH 05/27/24 05:03 5 ml PRN PRN Administration Flush Pantoprazole Sodium 40 mg in 10 mls @ 5 mls/min 04/30/24 09:00 05/01/24 08:37 Protonix IV 05/30/24 08:59 5 mls/min DAILY JANES Administration Amikacin Sulfate 1,200 mg/ 254.8 mls @ 250 mls/hr 05/01/24 16:00 05/01/24 16:01 Dextrose IV 05/01/24 17:01 250 mls/hr TODAY@1600 ONE Administration Lactobacillus Acidophilus 625 mg 04/27/24 09:00 05/01/24 08:30 Advanced Probiotic 625 Mg Capsule PO 05/27/24 08:59 625 mg BID JANES Administration Midodrine 5 mg 04/27/24 09:00 05/01/24 16:33 Midodrine Hcl 2.5 Mg Tab PO 05/27/24 08:59 5 mg BID@0900,1700 JANES Administration Miscellaneous 1 each 04/27/24 08:00 05/01/24 16:05 Difluprednate 0.05 % Drops - Order Awaiting Action N/A 05/27/24 07:59 Not Given QS JANES Miscellaneous 1 each 04/27/24 08:00 05/01/24 16:05 Difluprednate 0.05 % Drops - Order Awaiting Action N/A 05/27/24 07:59 Not Given QS JANES Multivitamins 1 tab 04/27/24 09:00 05/01/24 08:33 Multivitamin Tab PO 05/27/24 08:59 1 tab DAILY JANES Administration Potassium Phosphate 1 tab 05/01/24 09:15 05/01/24 16:41 Pot Phosphate Monobasic W/ Sod Tab PO 05/02/24 09:16 1 tab Q8H JANES Administration Pyridoxine HCl 50 mg 04/27/24 09:00 05/01/24 08:33 Pyridoxine Hcl 50 Mg Tab PO 05/27/24 08:59 50 mg DAILY JANES Administration Rifabutin 300 mg 04/29/24 16:00 05/01/24 08:26 Rifabutin 150 Mg Capsule PO 05/29/24 15:59 300 mg DAILY JANES Administration Tedizolid Phosphate 200 mg 04/29/24 16:00 05/01/24 08:27 Tedizolid Phosphate 200 Mg Tablet PO 05/29/24 15:59 200 mg DAILY JANES Administration Trimethoprim/Sulfamethoxazole 1 tab 04/27/24 09:00 05/01/24 08:32 Sulfamethoxazole/Trimethoprim Ds 800/160mg Tab PO 05/27/24 08:59 1 tab DAILY JANES Administration Umeclidinium [place] 1 puffs 04/27/24 09:00 05/01/24 08:37 Umeclidinium [place] 62.5mcg/Blister 7 Puffs/Inhaler INH 05/27/24 08:59 Not Given DAILY JANES Vitamin D 25 mcg 04/27/24 09:00 05/01/24 08:32 Cholecalciferol 25 Mcg (1000 Units) Tab PO 05/27/24 08:59 25 mcg DAILY JANES Administration
[2024-05-01] MEDS: [UNRECOGNIZED DRUG - OTHER] IV SCH (17:31)
[2024-05-02 08:28] LABS: Albumin Level 2.5 gm/dl (3.4-5.0); BUN Creatinine Ratio 14.3 (10-20); Calcium 7.6 mg/dl (8.6-10.3); Creatinine Clr Calc Pharmacy 49.2 ml/min; Phosphorus 2.5 mg/dl (2.5-4.9); Potassium 3.4 mmol/L (3.5-5.1)
--- NOTE | 2024-05-02 09:55 | Nephrology Progress Note ---
Date of Service May 02, 2024 Assessment & Plan (1) Acute kidney injury: (2) Hypokalemia: (3) Metabolic acidosis: (4) Cachexia associated with AIDS: (5) Severe protein-calorie malnutrition: (6) Multifocal pneumonia: (7) Anemia: (8) Mycobacterium avium complex: Plan 43 Y O male with no history of CKD, baseline creatinine 1.0-1.1, history of HIV/AIDS with multiple complications including disseminated MAC infection with pneumonia, ascites, admitted with shortness of breath and acute kidney injury. Kidney function has been worsening over last 3 days, on admission creatinine 1.6 worsened to 2.2 this morning associated with hypokalemia and metabolic acidosis. Has been significantly hypertensive since admission which slightly improved. Urinalysis with low-grade proteinuria and microscopic hematuria. CT abdomen pelvis in January 2024 showed otherwise normal kidney. KEERTHI likely secondary to ATN with hypotension, intravascular volume depletion with significant ascites, diarrhea, unlikely toxicity from amikacin which he received 3 days but amikacin random level was only 2.4 mcg/ml. Kidney function has been improving, cr down to 1.4 -- encouraged Increase fluid intake to try to keep in positive balance with ongoing diarrhea. --expect kidney function to continue to improve. Will sign off, thanks for the consult. Admission and Anticipated Discharge Date Admission Date: April 27, 2024 Arsh Pimentel was seen and evaluated this morning. He denies any specific symptoms but reports ongoing diarrhea. Shortness of breath completely resolved. Blood pressure improved and stable. Kidney function continues to improve but has multiple electrolyte abnormality with ongoing diarrhea. Review of Systems Review of Systems: Detailed review of system was done and pertinent positives and negatives are mentioned above. Physical Exam Constitutional: WD/WN, vitals as above + cachectic, + malnourished and + underweight; no acute distress Eyes: + anicteric sclerae Respiratory: Auscultation: lungs clear to auscultation bilaterally Cardiovascular: Rate/Rhythm: regular rate and regular rhythm Heart Sounds: normal S1 and normal S2 Extremities: no edema Musculoskeletal: muscle wasting Skin: no rashes, warm and dry Neurologic: no focal motor deficits Psychiatric: Orientation: alert and oriented x 3 Affect: euthymic affect Results & Data Vital Signs (Past 12 Hours) Vital Signs Temp Pulse Pulse Resp BP BP Pulse Ox 05/02/24 08:00 85 05/02/24 07:17 36.7 C 75 18 111/73 100 05/02/24 02:59 36.9 C 91 H 20 104/73 99 05/01/24 23:20 37 C 92 H 16 101/70 98 05/01/24 22:02 92 H O2 Del Method 05/02/24 08:00 05/02/24 07:17 Room Air 05/02/24 02:59 Room Air 05/01/24 23:20 Room Air 05/01/24 22:02 PG Care Time/CCT Total # of Minutes Spent Total Time Spent with Patient: Total time spent is greater than 50% in coordination of care (as documented) at patient's floor/unit and/or counseling patient: Coding Level of Care Code 18007 SUB INP/OBS CARE 2/35MIN Diagnoses Acute kidney injury N17.9 Hypokalemia E87.6 Metabolic acidosis E87.20 Cachexia associated with AIDS B20; E88.A Severe protein-calorie malnutrition E43 Multifocal pneumonia J18.9 Anemia D64.9 Mycobacterium avium complex A31.0
--- NOTE | 2024-05-02 15:21 | Pharmacy Report ---
Pharmacy PK ABX Note - Date of Service May 02, 2024 - Assessment and Plan Assessment 05/02 * Trough yesterday was 2.9 mcg/mL which was therapeutic. q48h interval likely appropriate (or possibly TIW once get back on the // schedule) * Peak yesterday was 53.2 mcg/mL which may be subtherapeutic. However, was drawn a little early. Unclear if this will affect the level significantly. Dose increase may be warranted, but hesitant to be too aggressive with increase in next dose. * Random level obtained this AM as unclear if will be able to get additional results over this weekend. Assuming SCr doesn't worsen and level from today is not worrisome for accumulation, anticipate 1250 mg (25 mg/kg) IV x1 tomorrow, with obtaining trough before the dose and peak after the dose. 05/01 * Peak amikacin level yesterday of 70.6 mcg/mL is therapeutic. However, this level is likely falsely elevated due to being drawn early. See 04/30. Will keep same dose as previous and assess another peak with next dose. * SCr improving today to 1.7 mg/dL * Random level yesterday 9.7 mcg/mL. * Trough ordered for 1545 today. * D/w Dr. Elmore - trough level will not come back until likely tomorrow AM. Based on trend in last two levels, anticipate trough is likely to be therapeutic, but interpretation is complicated by not drawing peak at the correct time and changing SCr. Discussed risk/benefit of giving a dose today vs. delaying until tomorrow AM - Dr. Elmore noted would give today. 04/30 * Amikacin admin at 1545 yesterday. Infusion completed at 1647. Peak was to be drawn 30 minutes later at 1717 and phlebotomy was called and notified of the importance of this timing. However, level was drawn 20 minutes too early at 1657, prior to the distribution phase of amikacin completing. Level therefore will be falsely elevated, but not able to tell how falsely elevated since it will be affected both by distribution and elimination. * Will order a random level today. It may not necessarily be helpful to back- calculate a peak, but could give an idea of patient-specific ke when evaluated in conjunction with trough tomorrow. However, patient-specific calculated ke can only be interpreted in the context of stable renal function, which is also potentially an issue 04/29 * Case discussed w Dr. Elmore again today with the following assessment/plan: * Rifabutin and tedizolid have been obtained from [facility]. * SCr continues to worsen, now 2.16 mg/dL w eCrCL 32 * Amikacin trough level yesterday AM was therapeutic at 2.4 mcg/mL (note - results available in scanned reports section, not in laboratory section). * Truvada dose clarified w [facility] - is 1 tab (200/300) po *daily*. Med history adjusted (originally noted BID). However, this is now renally adjusted to q48h. If it needs to be held 2nd worsening renal function, dolutegravir likely will also need to be held * Plan as of now is to resume the prior outpatient regimen (ethambutol, rifabutin, tedizolid, and amikacin), pending additional outpatient data / cultures * Full 1200 mg dose of amikacin today despite KEERTHI noted - dose relates to *efficacy* / peak. However, anticipate interval may need to be lengthened due to KEERTHI as interval relates to *toxicity* / trough. * Will obtain peak level 30 minutes after the end of the amikacin infusion. This is a send out but delay in results will be insignificant as this will inform how much to give for the next dose which will not be for a minimum of 48 hours. * Will obtain trough level 48 hours after the peak level. This is a send- out, but since interval may need to be longer than 48 hours 2nd KEERTHI this is less likely to impact care 04/28 * Trough level ordered this AM. Called [facility] lab and spoke w Adolfo this AM - this is a send out to [facility] w results faxed to us ~2-3 hours after they receive it. Core Worker had already been called and requested. Hopefully, will receive results today. * SCr increased today to 1.98 mg/dL * Discussed dosing w [facility] pharmacist (Sergo) - KEERTHI noted, but as long as trough is <4, OK to re-dose at full 1200 mg when appropriate. Plan to adjust frequency based on trough levels and dose based on peak levels. Will obtain peak level with next dose, to be drawn 30 minutes after completion of the infusion * Called lab at 1500 - no results from [place], yet. They will fax result to us. Asked lab to monitor for result periodically tonight and call pharmacy [phone] if/when result is obtained * ID consulted - spoke w Dr. Elmore at 1530 - unclear what regimen is, but may be combo of rifabutin, tedizolid, amikacin, and ethambutol. Currently only ethambutol ordered / being administered because we're waiting on amikacin level and waiting on [facility] to bring in rifabutin and tedizolid - unclear if they have been asked to do so. Per Dr. Elmore - partial regimen likely more of a risk due to increased resistance, which is apparently already an issue for this patient with macrolide resistance. Unclear if tedizolid is part of the regimen, although it can be used for MAC. Will therefore hold amikacin tonight - Dr. Whitman in agreement. She noted intent to call [facility] and speak with the [facility] directly today. 04/27 * 43 year old M receiving IV amikacin for treatment of chronic MAC infection. * Spoke with [facility] RN today, dosing/regimen verified. Patient is receiving amikacin 1200mg (~23mg/kg/dose) IV daily on . Last dose was 04/25 @ 0837. * Therapy was initiated by [facility] director medical affairs Dr. Ascencion Powers (being managed by Dr. Powers) on 04/21/24. Regimen was recommended by [facility]. * Confirmed that no levels have been drawn since therapy initiated. * Patient with KEERTHI currently (SCr 1.67-->1.45), baseline ~ 1mg/dl. Plan Amikacin * Goal trough < 5 mcg/mL * Goal peak for intermittent TIW dosin-80 mcg/mL * Trough @ 1545 today * Amikacin 1200 mg scheduled for 1600 today. * Will wait to order peak until amikacin actually administered. Peak should be drawn between 1 hr 32 minutes to 1 hr 42 minutes timed from the *start* of the 1 hr 2 min amikacin infusion Pharmacy will continue to follow and will adjust dose/frequency as necessary. Thank you.
--- NOTE | 2024-05-02 15:53 | Hospitalist Progress Note ---
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 Plan to complete a 7-day course->Pulmonary signed off Acute kidney injury Normal renal function at baseline Nephrology consulted. considered possible ATN from illness, hydrated, concern with ascites and consideration of ascitic fluid removal It could be postrenal due to ascites causing obstruction. 2L Ascitic fluid removed 04/29. 05/01 Disseminated MAC with retroperitoneal mass and recurrent ascites/HIV Patient was diagnosed with HIV in 2013., Has been on Biktarvy since 2021 Regimen changed recently to Tedezolid, Rifabutin, Ethambutol and Amikacin. Amikacin renal dose. Amikacin random level was 2.4 per nephrology note. (recent information states [facility] ID culture showed resistence to azithromycin and levafloxacin ) While at [facility] upon recent transfer, CT abdomen showed severe extrinsic compression of portal vein due to soft tissue mass and multifocal retroperitoneal and mesenteric soft tissue. Biiopsy of mass and Peritoneal fluid grew MAC. Peritoneal fluid was also positive for Estrella albicans which was treated with a 2-week course of fluconazole. A tunneled ascites drain was placed for recurrent ascites that was being accessed at the present to drain ascitic fluid. Infectious disease involved His surgical pathology and flow cytometry did not show any evidence of niall gnancy/lymphoma but did show evidence of MAC in the peritoneum which is likely causing his recurrent ascites. Hypotension-initial concern for sepsis ruled out Patient is cachectic/sarcopenic and has baseline hypotension Blood pressure stable but low and the patient is feeling improved, but still too weak to even try to use bedside commode Discontinue IV hydrocortisone Continue to hold spironolactone Overall pt is declining, he is unrealistic about his recovery, he is not open to discuss palliative care DVT Prophylaxis- Continue lovenox 30mg SQ daily Admission and Anticipated Discharge Date Admission Date: April 27, 2024 Subjective Patient does not have any questions or concerns today. The nurse did not report any concerns either. Review of Systems Review of Systems: All systems reviewed & are unremarkable except as noted in Subjective Physical Exam Physical Exam: General: Awake, conversant, cachectic with intercostal and bitemporal muscle wasting Heart: S1, S2/regular rate and rhythm, no murmur rubs or gallops Lungs: Clear to auscultation bilaterally. Normal effort Abdomen: Soft/nontender/distended. Positive shifting dullness. Positive bowel sounds Extremities: No clubbing/cyanosis. No edema Behavior: Appropriate, cooperative Results & Data Results & Data Vital Signs (Past 12 Hours) Vital Signs Temp Pulse Pulse Resp BP BP Pulse Ox 05/02/24 15:31 36.9 C 85 17 111/78 100 05/02/24 14:19 79 05/02/24 11:24 36.6 C 73 17 103/71 100 05/02/24 08:00 85 05/02/24 07:17 36.7 C 75 18 111/73 100 O2 Del Method 05/02/24 15:31 Room Air 05/02/24 14:19 05/02/24 11:24 Room Air 05/02/24 08:00 05/02/24 07:17 Room Air Laboratory Results Abnormal lab results 05/02/24 Range/Units 07:39 Potassium 3.4 L (3.5-5.1) mmol/L Chloride 115 H (98-107) mmol/L Carbon Dioxide 20 L (21-32) mmol/L Calcium 7.6 L (8.6-10.3) mg/dl Albumin 2.5 L (3.4-5.0) gm/dl PG Care Time/CCT Total # of Minutes Spent Total Time Spent with Patient: Total time spent is greater than 50% in coordination of care (as documented) at patient's floor/unit and/or counseling patient: Coding Level of Care Code 13549 SUB INP/OBS CARE 2/35MIN Diagnoses Acute on chronic respiratory failure with hypoxia J96.21 HIV (human immunodeficiency virus infection) Z21 HIV symptom status: unspecified Mycobacterium avium complex A31.0 Cachexia associated with AIDS B20; E88.A Emphysema lung J43.9 (2) HIV (human immunodeficiency virus infection) HIV symptom status: unspecified Qualified Code(s): Z21 - Asymptomatic human immunodeficiency virus [HIV] infection status
[2024-05-02 18:57] LABS: Cryptococcal Antigen Not Detected (Not Detected); Fungitell (1-3)-B-D-Glucan 58 pg/mL; Source Serum
[2024-05-03 01:57] LABS: Alpha 1 Antitrypsin 254 mg/dL (83-199)
[2024-05-03 06:22] LABS: Albumin Level 2.6 gm/dl (3.4-5.0); BUN Creatinine Ratio 13.8 (10-20); Calcium 7.7 mg/dl (8.6-10.3); Creatinine Clr Calc Pharmacy 43.1 ml/min; Phosphorus 2.8 mg/dl (2.5-4.9); Potassium 3.2 mmol/L (3.5-5.1)
--- NOTE | 2024-05-03 12:22 | Pharmacy Report ---
Pharmacy PK ABX Note - Date of Service May 03, 2024 - Assessment and Plan Assessment 05/03: * Random level drawn yesterday was 15.0 mcg/mL. Predicted trough prior to today's dose is 2.3 mcg/mL while the predicted peak is 60.6 mcg/mL. * Will increase dose slightly and give 1250 mg IV x 1 today at 1600. Spoke with patient's RN and instructed to please administer dose as close to 1600 as possible. The predicted peak is subtherapeutic but hesitant to increase dose any further than 25 mg/kg today given SCr is trending back up (1.4 yest --> 1.6 today) and UO has been minimal today per travel journalist. Should peak return subtherapeutic, would consider increasing to 1500 mg which is almost 30 mg/kg. * Will reach out to second shift travel med surg rn to educate on importance of drawing peak and troughs on time. Both peak levels have been drawn slightly early. * Will order a random level with AM labs tomorrow as well so clinical pharmacist on Sunday has some information prior to another dose being given. 05/02 * Trough yesterday was 2.9 mcg/mL which was therapeutic. q48h interval likely appropriate (or possibly TIW once get back on the // schedule) * Peak yesterday was 53.2 mcg/mL which may be subtherapeutic. However, was drawn a little early. Unclear if this will affect the level significantly. Dose increase may be warranted, but hesitant to be too aggressive with increase in next dose. * Random level obtained this AM as unclear if will be able to get additional results over this weekend. Assuming SCr doesn't worsen and level from today is not worrisome for accumulation, anticipate 1250 mg (25 mg/kg) IV x1 tomorrow, with obtaining trough before the dose and peak after the dose. 05/01 * Peak amikacin level yesterday of 70.6 mcg/mL is therapeutic. However, this level is likely falsely elevated due to being drawn early. See 04/30. Will keep same dose as previous and assess another peak with next dose. * SCr improving today to 1.7 mg/dL * Random level yesterday 9.7 mcg/mL. * Trough ordered for 1545 today. * D/w Dr. Elmore - trough level will not come back until likely tomorrow AM. Based on trend in last two levels, anticipate trough is likely to be therapeutic, but interpretation is complicated by not drawing peak at the correct time and changing SCr. Discussed risk/benefit of giving a dose today vs. delaying until tomorrow AM - Dr. Elmore noted would give today. 04/30 * Amikacin admin at 1545 yesterday. Infusion completed at 1647. Peak was to be drawn 30 minutes later at 1717 and phlebotomy was called and notified of the importance of this timing. However, level was drawn 20 minutes too early at 1657, prior to the distribution phase of amikacin completing. Level therefore will be falsely elevated, but not able to tell how falsely elevated since it will be affected both by distribution and elimination. * Will order a random level today. It may not necessarily be helpful to back- calculate a peak, but could give an idea of patient-specific ke when evaluated in conjunction with trough tomorrow. However, patient-specific calculated ke can only be interpreted in the context of stable renal function, which is also potentially an issue 04/29 * Case discussed w Dr. Elmore again today with the following assessment/plan: * Rifabutin and tedizolid have been obtained from [facility]. * SCr continues to worsen, now 2.16 mg/dL w eCrCL 32 * Amikacin trough level yesterday AM was therapeutic at 2.4 mcg/mL (note - results available in scanned reports section, not in laboratory section). * Truvada dose clarified w [facility] - is 1 tab (200/300) po *daily*. Med history adjusted (originally noted BID). However, this is now renally ad justed to q48h. If it needs to be held 2nd worsening renal function, dolutegravir likely will also need to be held * Plan as of now is to resume the prior outpatient regimen (ethambutol, rifabutin, tedizolid, and amikacin), pending additional outpatient data / cultures * Full 1200 mg dose of amikacin today despite KEERTHI noted - dose relates to *efficacy* / peak. However, anticipate interval may need to be lengthened due to KEERTHI as interval relates to *toxicity* / trough. * Will obtain peak level 30 minutes after the end of the amikacin infusion. This is a send out but delay in results will be insignificant as this will inform how much to give for the next dose which will not be for a minimum of 48 hours. * Will obtain trough level 48 hours after the peak level. This is a send- out, but since interval may need to be longer than 48 hours 2nd KEERTHI this is less likely to impact care 04/28 * Trough level ordered this AM. Called [facility] lab and spoke w Adolfo this AM - this is a send out to [place] w results faxed to us ~2-3 hours after they receive it. [employer] T[employer] had already been called and requested. Hopefully, will receive results today. * SCr increased today to 1.98 mg/dL * Discussed dosing w [facility] pharmacist (Sergo) - KEERTHI noted, but as long as trough is <4, OK to re-dose at full 1200 mg when appropriate. Plan to adjust frequency based on trough levels and dose based on peak levels. Will obtain peak level with next dose, to be drawn 30 minutes after completion of the infusion * Called lab at 1500 - no results from [place], yet. They will fax result to us. Asked lab to monitor for result periodically tonight and call pharmacy [phone] if/when result is obtained * ID consulted - spoke w Dr. Elmore at 1530 - unclear what regimen is, but may be combo of rifabutin, tedizolid, amikacin, and ethambutol. Currently only ethambutol ordered / being administered because we're waiting on amikacin level and waiting on [facility] to bring in rifabutin and tedizolid - unclear if they have been asked to do so. Per Dr. Elmore - partial regimen likely more of a risk due to increased resistance, which is apparently already an issue for this patient with macrolide resistance. Unclear if tedizolid is part of the regimen, although it can be used for MAC. Will therefore hold amikacin tonight - Dr. Whitman in agreement. She noted intent to call [facility] and speak with the [facility] directly today. 04/27 * 43 year old M receiving IV amikacin for treatment of chronic MAC infection. * Spoke with [facility] RN today, dosing/regimen verified. Patient is receiving amikacin 1200mg (~23mg/kg/dose) IV daily on . Last dose was 04/25 @ 0837. * Therapy was initiated by [facility] medical cost consultant Dr. Ascencion Powers (being managed by Dr. Powers) on 04/21/24. Regimen was recommended by [facility] W[facility]OSN. * Confirmed that no levels have been drawn since therapy initiated. * Patient with KEERTHI currently (SCr 1.67-->1.45), baseline ~ 1mg/dl. Plan Amikacin * Goal trough < 5 mcg/mL * Goal peak for intermittent TIW dosin-80 mcg/mL * Trough @ 1530 today * Amikacin 1250 mg scheduled for 1600 today. * Peak ordered @ 1735 which is ~ 30 mins following the completion of today's dose * Random level ordered for 05/04/24 with AM labs Pharmacy will continue to follow and will adjust dose/frequency as necessary. Thank you.
--- NOTE | 2024-05-03 13:57 | Hospitalist Progress Note ---
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 Plan to complete a 7-day course->Pulmonary signed off Acute kidney injury Normal renal function at baseline Nephrology consulted. considered possible ATN from illness, hydrated, concern with ascites and consideration of ascitic fluid removal It could be postrenal due to ascites causing obstruction. 2L Ascitic fluid removed 04/29. 05/01 Creatinine is up today again at 1.6 from 1.4 yesterday This could be because he is not keeping up with his fluid loss in bowel movements. Encouraged him to drink fluids It could also be postrenal due to ascites. Asked the nurse to drain 2 L of fluid today again. Disseminated MAC with retroperitoneal mass and recurrent ascites/HIV Patient was diagnosed with HIV in 2013., Has been on Biktarvy since 2021 Regimen changed recently to Tedezolid, Rifabutin, Ethambutol and Amikacin. Amikacin renal dose. Amikacin random level was 2.4 per nephrology note. (recent information [place] [facility] [place] showed resistence to azithromycin and levafloxacin ) While at [facility] upon recent transfer, CT abdomen showed severe extrinsic compression of portal vein due to soft tissue mass and multifocal retroperitoneal and mesenteric soft tissue. Biiopsy of mass and Peritoneal fluid grew MAC. Peritoneal fluid was also positive for Estrella albicans which was treated with a 2-week course of fluconazole. A tunneled ascites drain was placed for recurrent ascites that was being accessed at the present to drain ascitic fluid. Infectious disease involved His surgical pathology and flow cytometry did not show any evidence of malignancy/lymphoma but did show evidence of MAC in the peritoneum which is likely causing his recurrent ascites. Hypotension-initial concern for sepsis ruled out Patient is cachectic/sarcopenic and has baseline hypotension Blood pressure stable but low and the patient is feeling improved, but still too weak to even try to use bedside commode Discontinued IV hydrocortisone Continue to hold spironolactone Overall pt is declining, he is unrealistic about his recovery, he is not open to discuss palliative care DVT Prophylaxis- Continue lovenox 30mg SQ daily Admission and Anticipated Discharge Date Admission Date: April 27, 2024 Subjective Patient was seen and examined at 10:05 AM. He says that he feels like his belly is filling up with fluid again. He complains of frequent loose stools. He says he is drinking fluids but perhaps not enough to compensate for the fluid he is losing with bowel movements. Noted that his creatinine went up today. Review of Systems Review of Systems: All systems reviewed & are unremarkable except as noted in Subjective Physical Exam Physical Exam: General: Awake, conversant, cachectic with intercostal and bitemporal muscle wasting Heart: S1, S2/regular rate and rhythm, no murmur rubs or gallops Lungs: Clear to auscultation bilaterally. Normal effort Abdomen: Soft/nontender/distended. Positive shifting dullness. Positive bowel sounds Extremities: No clubbing/cyanosis. No edema Behavior: Appropriate, cooperative Results & Data Results & Data Vital Signs (Past 12 Hours) Vital Signs Temp Pulse Pulse Resp BP BP Pulse Ox 05/03/24 11:26 36.6 C 89 18 107/76 100 05/03/24 09:00 94 H 05/03/24 09:00 05/03/24 07:17 36.7 C 93 H 18 111/78 100 05/03/24 03:16 36.9 C 98 H 18 104/74 100 O2 Del Method 05/03/24 11:26 Room Air 05/03/24 09:00 05/03/24 09:00 Room Air 05/03/24 07:17 Room Air 05/03/24 03:16 Room Air Laboratory Results Abnormal lab results 04/28/24 05/03/24 Range/Units 05:53 05:23 Potassium 3.2 L (3.5-5.1) mmol/L Chloride 115 H (98-107) mmol/L Carbon Dioxide 18 L (21-32) mmol/L Creatinine 1.60 H (0.6-1.4) mg/dl Glucose 115 H (70-99(Fasting)) mg/dl Calcium 7.7 L (8.6-10.3) mg/dl Albumin 2.6 L (3.4-5.0) gm/dl [id number] 254 H (83-199) mg/dL PG Care Time/CCT Total # of Minutes Spent Total Time Spent with Patient: Total time spent is greater than 50% in coordination of care (as documented) at patient's floor/unit and/or counseling patient: Coding Level of Care Code 15367 SUB INP/OBS CARE 2/35MIN Diagnoses Acute on chronic respiratory failure with hypoxia J96.21 HIV (human immunodeficiency virus infection) Z21 HIV symptom status: unspecified Mycobacterium avium complex A31.0 Cachexia associated with AIDS B20; E88.A Emphysema lung J43.9 (2) HIV (human immunodeficiency virus infection) HIV symptom status: unspecified Qualified Code(s): Z21 - Asymptomatic human immunodeficiency virus [HIV] infection status
[2024-05-03] MEDS: AMIKACIN SULFATE 1,250 MG in DEXTROSE 5% 250 ML IV ONE (15:51)
[2024-05-03] MEDS: [UNRECOGNIZED DRUG - OTHER] ONE (15:51)
[2024-05-03] MEDS: [UNRECOGNIZED DRUG - OTHER] IV ONE (17:40)
[2024-05-04 06:16] LABS: BUN Creatinine Ratio 15.6 (10-20); Calcium 7.6 mg/dl (8.6-10.3); Creatinine Clr Calc Pharmacy 44.7 ml/min; Potassium 3.4 mmol/L (3.5-5.1)
[2024-05-04] MEDS: POTASSIUM CHLORIDE CRTAB 20 MEQ TABCR PO STA (09:05)
--- NOTE | 2024-05-04 09:43 | Pharmacy Report ---
Pharmacy PK ABX Note - Date of Service May 04, 2024 - Assessment and Plan Assessment 05/04: * Amikacin trough yesterday was drawn appropriately and was 3.5 mcg/mL which was therapeutic. Believe a Sunday, Sunday, Sunday schedule is appropriate to transition to starting tomorrow. * Amikacin peak yesterday was drawn slightly late (~45 mins following completion of dose; peak drawn late is preferable to being drawn early) and was 57.6 mcg/mL which was subtherapeutic. At this point, I would consider increasing tomorrow's dose to 1500 mg which is ~30 mg/kg actual BW (~20 mg/kg IBW). Will leave this decision for floor pharmacist and antimicrobial stewardship pharmacist to discuss tomorrow. * Did order a random level for this AM which is pending. 05/03: * Random level drawn yesterday was 15.0 mcg/mL. Predicted trough prior to today's dose is 2.3 mcg/mL while the predicted peak is 60.6 mcg/mL. * Will increase dose slightly and give 1250 mg IV x 1 today at 1600. Spoke with patient's RN and instructed to please administer dose as close to 1600 as possible. The predicted peak is subtherapeutic but hesitant to increase dose any further than 25 mg/kg today given SCr is trending back up (1.4 yest --> 1.6 today) and UO has been minimal today per websphere process server developer. Should peak return subtherapeutic, would consider increasing to 1500 mg which is almost 30 mg/kg. * Will reach out to second shift plating and point assembly supervisor to educate on importance of drawing peak and troughs on time. Both peak levels have been drawn slightly early. * Will order a random level with AM labs tomorrow as well so clinical pharmacist on Sunday has some information prior to another dose being given. 05/02 * Trough yesterday was 2.9 mcg/mL which was therapeutic. q48h interval likely appropriate (or possibly TIW once get back on the // schedule) * Peak yesterday was 53.2 mcg/mL which may be subtherapeutic. However, was drawn a little early. Unclear if this will affect the level significantly. Dose increase may be warranted, but hesitant to be too aggressive with increase in next dose. * Random level obtained this AM as unclear if will be able to get additional results over this weekend. Assuming SCr doesn't worsen and level from today is not worrisome for accumulation, anticipate 1250 mg (25 mg/kg) IV x1 tomorrow, with obtaining trough before the dose and peak after the dose. 05/01 * Peak amikacin level yesterday of 70.6 mcg/mL is therapeutic. However, this level is likely falsely elevated due to being drawn early. See 04/30. Will keep same dose as previous and assess another peak with next dose. * SCr improving today to 1.7 mg/dL * Random level yesterday 9.7 mcg/mL. * Trough ordered for 1545 today. * D/w Dr. Elmore - trough level will not come back until likely tomorrow AM. Based on trend in last two levels, anticipate trough is likely to be therapeutic, but interpretation is complicated by not drawing peak at the correct time and changing SCr. Discussed risk/benefit of giving a dose today vs. delaying until tomorrow AM - Dr. Elmore noted would give today. 04/30 * Amikacin admin at 1545 yesterday. Infusion completed at 1647. Peak was to be drawn 30 minutes later at 1717 and phlebotomy was called and notified of the importance of this timing. However, level was drawn 20 minutes too early at 1657, prior to the distribution phase of amikacin completing. Level therefore will be falsely elevated, but not able to tell how falsely elevated since it will be affected both by distribution and elimination. * Will order a random level today. It may not necessarily be helpful to back- calculate a peak, but could give an idea of patient-specific ke when evaluated in conjunction with trough tomorrow. However, patient-specific calculated ke can only be interpreted in the context of stable renal function, which is also potentially an issue 04/29 * Case discussed w Dr. Elmore again today with the following assessment/plan: * Rifabutin and tedizolid have been obtained from [facility]. * SCr continues to worsen, now 2.16 mg/dL w eCrCL 32 * Amikacin trough level yesterday AM was therapeutic at 2.4 mcg/mL (note - results available in scanned reports section, not in laboratory section). * Truvada dose clarified w [facility] - is 1 tab (200/300) po *daily*. Med history adjusted (originally noted BID). However, this is now renally adjusted to q48h. If it needs to be held 2nd worsening renal function, dolutegravir likely will also need to be held * Plan as of now is to resume the prior outpatient regimen (ethambutol, rifabutin, tedizolid, and amikacin), pending additional outpatient data / cultures * Full 1200 mg dose of amikacin today despite KEERTHI noted - dose relates to *efficacy* / peak. However, anticipate interval may need to be lengthened due to KEERTHI as interval relates to *toxicity* / trough. * Will obtain peak level 30 minutes after the end of the amikacin infusion. This is a send out but delay in results will be insignificant as this will inform how much to give for the next dose which will not be for a minimum of 48 hours. * Will obtain trough level 48 hours after the peak level. This is a send- out, but since interval may need to be longer than 48 hours 2nd KEERTHI this is less likely to impact care 04/28 * Trough level ordered this AM. Called [facility] lab and spoke jaya Mata this AM - this is a send out to [facility] w results faxed to us ~2-3 hours after they receive it. Music Therapy Teacher had already been called and requested. Hopefully, will receive results today. * SCr increased today to 1.98 mg/dL * Discussed dosing w [facility] pharmacist (Sergo) - KEERTHI noted, but as long as trough is <4, OK to re-dose at full 1200 mg when appropriate. Plan to adjust frequency based on trough levels and dose based on peak levels. Will obtain peak level with next dose, to be drawn 30 minutes after completion of the infusion * Called lab at 1500 - no results from [facility], yet. They will fax result to us. Asked lab to monitor for result periodically tonight and call pharmacy [phone] if/when result is obtained * ID consulted - spoke w Dr. Elmore at 1530 - unclear what regimen is, but may be combo of rifabutin, tedizolid, amikacin, and ethambutol. Currently only ethambutol ordered / being administered because we're waiting on amikacin level and waiting on [facility] to bring in rifabutin and tedizolid - unclear if they have been asked to do so. Per Dr. Elmore - partial regimen likely more of a risk due to increased resistance, which is apparently already an issue for this patient with macrolide resistance. Unclear if tedizolid is part of the regimen, although it can be used for MAC. Will therefore hold amikacin tonight - Dr. Whitman in agreement. She noted intent to call [facility] and speak with the [facility] directly today. 04/27 * 43 year old M receiving IV amikacin for treatment of chronic MAC infection. * Spoke with [facility] RN today, dosing/regimen verified. Patient is receiving amikacin 1200mg (~23mg/kg/dose) IV daily on . Last dose was 04/25 @ 0837. * Therapy was initiated by [facility] medical claims manager Dr. Ascencion Powers (being managed by Dr. Powers) on 04/21/24. Regimen was recommended by Berna WILSON. * Confirmed that no levels have been drawn since therapy initiated. * Patient with KEERTHI currently (SCr 1.67-->1.45), baseline ~ 1mg/dl. Plan Amikacin * Goal trough < 5 mcg/mL * Goal peak for intermittent TIW dosin-80 mcg/mL * Trough @ 1530 today * Amikacin 1250 mg scheduled for 1600 today. * Peak ordered @ 1735 which is ~ 30 mins following the completion of today's dose * Random level ordered for 05/04/24 with AM labs Pharmacy will continue to follow and will adjust dose/frequency as necessary. Thank you.
--- NOTE | 2024-05-04 12:31 | Hospitalist Progress Note ---
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 Plan to complete a 7-day course->Pulmonary signed off Acute kidney injury Normal renal function at baseline Nephrology consulted. considered possible ATN from illness, hydrated, concern with ascites and consideration of ascitic fluid removal It could be postrenal due to ascites causing obstruction. 2L Ascitic fluid removed 04/29. 05/01 Creatinine is slightly better at 1.5 from 1.6 yesterday. He has been encouraged to drink fluids to keep up with his fluid loss in bowel movements. It could also be postrenal due to ascites. Asked the nurse to drain 2 L of fluid again. Drained 05/04 Disseminated MAC with retroperitoneal mass and recurrent ascites/HIV Patient was diagnosed with HIV in 2013., Has been on Biktarvy since 2021 Regimen changed recently to Tedezolid, Rifabutin, Ethambutol and Amikacin. Amikacin renal dose. Amikacin random level was 2.4 per nephrology note. (recent information [place] [facility] [place] resistence to azith[place] and levafloxacin ) While at [facility] upon recent transfer, CT abdomen showed severe extrinsic compression of portal vein due to soft tissue mass and multifocal retroperitoneal and mesenteric soft tissue. Biiopsy of mass and Peritoneal fluid grew MAC. Peritoneal fluid was also positive for Estrella albicans which was treated with a 2-week course of fluconazole. A tunneled ascites drain was placed for recurrent ascites that was being accessed at the present to drain ascitic fluid. Infectious disease involved His surgical pathology and flow cytometry did not show any evidence of malignancy/lymphoma but did show evidence of MAC in the peritoneum which is likely causing his recurrent ascites. Hypotension-initial concern for sepsis ruled out Patient is cachectic/sarcopenic and has baseline hypotension Blood pressure stable but low and the patient is feeling improved, but still too weak to even try to use bedside commode Discontinued IV hydrocortisone Continue to hold spironolactone Overall pt is declining, he is unrealistic about his recovery, he is not open to discuss palliative care DVT Prophylaxis- Continue lovenox 30mg SQ daily Admission and Anticipated Discharge Date Admission Date: April 27, 2024 Subjective Patient was seen and examined at 10:40 AM. He seemed to be very tired today. Not wanting to talk or move. Per nurse, he has been drinking fluids. Review of Systems Review of Systems: All systems reviewed & are unremarkable except as noted in Subjective Physical Exam Physical Exam: General: Awake, conversant, cachectic with intercostal and bitemporal muscle wasting Heart: S1, S2/regular rate and rhythm, no murmur rubs or gallops Lungs: Clear to auscultation bilaterally. Normal effort Abdomen: Soft/nontender/distended. Positive shifting dullness. Positive bowel sounds Extremities: No clubbing/cyanosis. No edema Behavior: Appropriate, cooperative Results & Data Results & Data Vital Signs (Past 12 Hours) Vital Signs Temp Pulse Pulse Resp BP BP Pulse Ox 05/04/24 11:18 36.7 C 93 H 18 102/73 99 05/04/24 08:30 111 H 05/04/24 08:30 05/04/24 07:14 36.9 C 94 H 18 101/70 100 05/04/24 04:16 36.8 C 101 H 16 114/83 99 05/04/24 00:36 37.0 C 98 H 16 111/74 97 O2 Del Method 05/04/24 11:18 Room Air 05/04/24 08:30 05/04/24 08:30 Room Air 05/04/24 07:14 Room Air 05/04/24 04:16 Room Air 05/04/24 00:36 Room Air Laboratory Results Abnormal lab results 05/04/24 Range/Units 05:22 Potassium 3.4 L (3.5-5.1) mmol/L Chloride 112 H (98-107) mmol/L Carbon Dioxide 19 L (21-32) mmol/L BUN 24 H (6-23) mg/dl Creatinine 1.54 H (0.6-1.4) mg/dl Glucose 106 H (70-99(Fasting)) mg/dl Calcium 7.6 L (8.6-10.3) mg/dl PG Care Time/CCT Total # of Minutes Spent Total Time Spent with Patient: Total time spent is greater than 50% in coordination of care (as documented) at patient's floor/unit and/or counseling patient: Coding Level of Care Code 11973 SUB INP/OBS CARE 2/35MIN Diagnoses Acute on chronic respiratory failure with hypoxia J96.21 HIV (human immunodeficiency virus infection) Z21 HIV symptom status: unspecified Mycobacterium avium complex A31.0 Cachexia associated with AIDS B20; E88.A Emphysema lung J43.9 (2) HIV (human immunodeficiency virus infection) HIV symptom status: unspecified Qualified Code(s): Z21 - Asymptomatic human immunodeficiency virus [HIV] infection status
[2024-05-05 08:05] LABS: BUN Creatinine Ratio 14.8 (10-20); Calcium 7.8 mg/dl (8.6-10.3); Creatinine Clr Calc Pharmacy 39.1 ml/min; Potassium 3.8 mmol/L (3.5-5.1)
[2024-05-05] MEDS: DEXTROSE 5% IV ONE (10:52)
[2024-05-05] MEDS: AMIKACIN SULFATE IV ONE (10:52)
--- NOTE | 2024-05-05 12:25 | Pharmacy Report ---
Pharmacy PK ABX Note - Date of Service May 05, 2024 - Assessment and Plan Assessment 05/05: * SCr worsening again today. May continue to be a moving target. Ongoing frequent level monitoring indicated. * Agree with prior documentation to increase dose to 1500 mg IV x1 today. Will assess peak with this dose and trough on Sunday AM. 05/04: * Amikacin trough yesterday was drawn appropriately and was 3.5 mcg/mL which was therapeutic. Believe a Sunday, Sunday, Sunday schedule is appropriate to transition to starting tomorrow. * Amikacin peak yesterday was drawn slightly late (~45 mins following completion of dose; peak drawn late is preferable to being drawn early) and was 57.6 mcg/mL which was subtherapeutic. At this point, I would consider increasing tomorrow's dose to 1500 mg which is ~30 mg/kg actual BW (~20 mg/kg IBW). Will leave this decision for floor pharmacist and antimicrobial stewardship pharmacist to discuss tomorrow. * Did order a random level for this AM which is pending. 05/03: * Random level drawn yesterday was 15.0 mcg/mL. Predicted trough prior to today's dose is 2.3 mcg/mL while the predicted peak is 60.6 mcg/mL. * Will increase dose slightly and give 1250 mg IV x 1 today at 1600. Spoke with patient's RN and instructed to please administer dose as close to 1600 as possible. The predicted peak is subtherapeutic but hesitant to increase dose any further than 25 mg/kg today given SCr is trending back up (1.4 yest --> 1.6 today) and UO has been minimal today per environmental services assistant. Should peak return subtherapeutic, would consider increasing to 1500 mg which is almost 30 mg/kg. * Will reach out to second shift grape pruner to educate on importance of drawing peak and troughs on time. Both peak levels have been drawn slightly early. * Will order a random level with AM labs tomorrow as well so clinical pharmacist on Sunday has some information prior to another dose being given. 05/02 * Trough yesterday was 2.9 mcg/mL which was therapeutic. q48h interval likely appropriate (or possibly TIW once get back on the // schedule) * Peak yesterday was 53.2 mcg/mL which may be subtherapeutic. However, was drawn a little early. Unclear if this will affect the level significantly. Dose increase may be warranted, but hesitant to be too aggressive with increase in next dose. * Random level obtained this AM as unclear if will be able to get additional results over this weekend. Assuming SCr doesn't worsen and level from today is not worrisome for accumulation, anticipate 1250 mg (25 mg/kg) IV x1 tomorrow, with obtaining trough before the dose and peak after the dose. 05/01 * Peak amikacin level yesterday of 70.6 mcg/mL is therapeutic. However, this level is likely falsely elevated due to being drawn early. See 04/30. Will keep same dose as previous and assess another peak with next dose. * SCr improving today to 1.7 mg/dL * Random level yesterday 9.7 mcg/mL. * Trough ordered for 1545 today. * D/w Dr. Elmore - trough level will not come back until likely tomorrow AM. Based on trend in last two levels, anticipate trough is likely to be therapeutic, but interpretation is complicated by not drawing peak at the correct time and changing SCr. Discussed risk/benefit of giving a dose today vs. delaying until tomorrow AM - Dr. Elmore noted would give today. 04/30 * Amikacin admin at 1545 yesterday. Infusion completed at 1647. Peak was to be drawn 30 minutes later at 1717 and phlebotomy was called and notified of the importance of this timing. However, level was drawn 20 minutes too early at 1657, prior to the distribution phase of amikacin completing. Level therefore will be falsely elevated, but not able to tell how falsely elevated since it will be affected both by distribution and elimination. * Will order a random level today. It may not necessarily be helpful to back- calculate a peak, but could give an idea of patient-specific ke when evaluated in conjunction with trough tomorrow. However, patient-specific calculated ke can only be interpreted in the context of stable renal function, which is also potentially an issue 04/29 * Case discussed w Dr. Elmore again today with the following assessment/plan: * Rifabutin and tedizolid have been obtained from [email or web address]. * SCr continues to worsen, now 2.16 mg/dL w eCrCL 32 * Amikacin trough level yesterday AM was therapeutic at 2.4 mcg/mL (note - results available in scanned reports section, not in laboratory section). * Truvada dose clarified w [facility] - is 1 tab (200/300) po *daily*. Med history adjusted (originally noted BID). However, this is now renally adjusted to q48h. If it needs to be held 2nd worsening renal function, dolutegravir likely will also need to be held * Plan as of now is to resume the prior outpatient regimen (ethambutol, rifabutin, tedizolid, and amikacin), pending additional outpatient data / cultures * Full 1200 mg dose of amikacin today despite KEERTHI noted - dose relates to *efficacy* / peak. However, anticipate interval may need to be lengthened due to KEERTHI as interval relates to *toxicity* / trough. * Will obtain peak level 30 minutes after the end of the amikacin infusion. This is a send out but delay in results will be insignificant as this will inform how much to give for the next dose which will not be for a minimum of 48 hours. * Will obtain trough level 48 hours after the peak level. This is a send- out, but since interval may need to be longer than 48 hours 2nd KEERTHI this is less likely to impact care 04/28 * Trough level ordered this AM. Called [facility] lab and spoke w Adolfo this AM - this is a send out to [facility] w results faxed to us ~2-3 hours after they receive it. Forest Fire Prevention Manager had already been called and requested. Hopefully, will receive results today. * SCr increased today to 1.98 mg/dL * Discussed dosing w [facility] pharmacist (Sergo) - KEERTHI noted, but as long as trough is <4, OK to re-dose at full 1200 mg when appropriate. Plan to adjust frequency based on trough levels and dose based on peak levels. Will obtain peak level with next dose, to be drawn 30 minutes after completion of the infusion * Called lab at 1500 - no results from [facility], yet. They will fax result to us. Asked lab to monitor for result periodically tonight and call pharmacy [phone] if/when result is obtained * ID consulted - spoke w Dr. Elmore at 1530 - unclear what regimen is, but may be combo of rifabutin, tedizolid, amikacin, and ethambutol. Currently only ethambutol ordered / being administered because we're waiting on amikacin level and waiting on [facility] to bring in rifabutin and tedizolid - unclear if they have been asked to do so. Per Dr. Elmore - partial regimen likely more of a risk due to increased resistance, which is apparently already an issue for this patient with macrolide resistance. Unclear if tedizolid is part of the regimen, although it can be used for MAC. Will therefore hold amikacin tonight - Dr. Whitman in agreement. She noted intent to call [facility] and speak with the [facility] directly today. 04/27 * 43 year old M receiving IV amikacin for treatment of chronic MAC infection. * Spoke with [facility] RN today, dosing/regimen verified. Patient is receiving amikacin 1200mg (~23mg/kg/dose) IV daily on . Last dose was 04/25 @ 0837. * Therapy was initiated by [facility] medical nurse Dr. Ascencion Powers (being managed by Dr. Powers) on 04/21/24. Regimen was recommended by Berna WILSON. * Confirmed that no levels have been drawn since therapy initiated. * Patient with KEERTHI currently (SCr 1.67-->1.45), baseline ~ 1mg/dl. Plan Amikacin * Goal trough < 5 mcg/mL. Prior trough wnl - TIW regimen likely reasonable. * Goal peak for intermittent TIW dosin-80 mcg/mL. Prior peak subtherapeutic. Dose increase indicated. * Amikacin 1500 mg IV x1 today - administered at 1052 for 1 hr 2 min infusion. * Peak ordered @ 1224 which is 30 mins following the completion of today's dose. Called lab and notified of 10 minute target window [id number], and requested it not be drawn early. * Trough ordered 05/07 @ 1052, which is 48 hours after the start of today's infusion Pharmacy will continue to follow and will adjust dose/frequency as necessary. Thank you.
[2024-05-05] MEDS: SODIUM CHLORIDE 0.9% 1,000 ML IV SCH (13:05)
--- NOTE | 2024-05-05 13:31 | Hospitalist Progress Note ---
Date of Service May 05, 2024 Assessment & Plan (1) Acute on chronic respiratory failure with hypoxia: (2) HIV (human immunodeficiency virus infection): (3) Mycobacterium avium complex: Plan: disseminated (4) Cachexia associated with AIDS: Plan: severe protein-calorie malnutrition (5) Emphysema lung: Plan Acute on chronic respiratory failure with hypoxia/chronic MAC infection- multifocal pneumonia and sepsis suspected on admission Respiratory failure/sepsis resolved Currently on room air, considered Most likely related to mucous plugging with its rapid resolution Azithromycin was switched to doxycycline by pulmonary. Patient completed her doxycycline course Acute kidney injury Normal renal function at baseline Nephrology consulted. considered possible ATN from illness, hydrated, concern with ascites and consideration of ascitic fluid removal It could be postrenal due to ascites causing obstruction. 2L Ascitic fluid removed 04/29. 05/01 Creatinine got better initially and then started getting worse again. Today creatinine is at 1.7 Nephrology reconsulted He has been encouraged to drink fluids to keep up with his fluid loss in bowel movements. Gentle IV hydration has been ordered Ascitic fluid was drained on 05/04. It can be drained again tomorrow 05/06 by the nurse at the bedside Disseminated MAC with retroperitoneal mass and recurrent ascites/HIV Patient was diagnosed with HIV in 2013., Has been on Biktarvy since 2021 Regimen changed recently to Tedezolid, Rifabutin, Ethambutol and Amikacin. Amikacin renal dose. Amikacin random level was 2.4 per nephrology note. (recent information states [facility] [place] ID culture showed resistence to azithromycin and levafloxacin ) While at [facility] upon recent transfer, CT abdomen showed severe extrinsic compression of portal vein due to soft tissue mass and multifocal retroperitoneal and mesenteric soft tissue. Biiopsy of mass and Peritoneal fluid grew MAC. Peritoneal fluid was also positive for Estrella albicans which was treated with a 2-week course of fluconazole. A tunneled ascites drain was placed for recurrent ascites that was being accessed at the present to drain ascitic fluid. Infectious disease involved His surgical pathology and flow cytometry did not show any evidence of malignancy/lymphoma but did show evidence of MAC in the peritoneum which is likely causing his recurrent ascites. Hypotension-initial concern for sepsis ruled out Patient is cachectic/sarcopenic and has baseline hypotension Blood pressure stable but low and the patient is feeling improved, but still too weak to even try to use bedside commode Discontinued IV hydrocortisone Continue to hold spironolactone Overall pt is declining, he is unrealistic about his recovery, he is not open to discuss palliative care DVT Prophylaxis- Continue lovenox 30mg SQ daily Admission and Anticipated Discharge Date Admission Date: April 27, 2024 Subjective Per nurse, the patient had been drinking fluids yesterday. Today, he is not very motivated to drink fluids. The patient tells me that he has been having 4- 5 bowel movements for several months. However his BMs were soft but ever since he came to the hospital, they became watery. He tells me that his BMs become watery every time he ends up in the hospital. But the frequency has still remained 4-5 times per day. Noted that his creatinine continues to go up. Nephrology consulted. Started him on IV fluids. He does not think that his belly is distended enough to be drained again. He says he can wait till tomorrow. Review of Systems Review of Systems: All systems reviewed & are unremarkable except as noted in Subjective Physical Exam Physical Exam: General: Awake, conversant, cachectic with intercostal and bitemporal muscle wasting. Frail and chronically ill-looking Heart: S1, S2/regular rate and rhythm, no murmur rubs or gallops Lungs: Clear to auscultation bilaterally. Normal effort Abdomen: Soft/nontender/distended. Positive shifting dullness. Positive bowel sounds Extremities: No clubbing/cyanosis. No edema Behavior: Appropriate, cooperative Results & Data Results & Data Vital Signs (Past 12 Hours) Vital Signs Temp Pulse Pulse Resp BP Pulse Ox O2 Del Method 05/05/24 11:58 36.6 C 99 H 18 111/79 99 Room Air 05/05/24 08:30 Room Air 05/05/24 07:51 36.8 C 101 H 18 114/69 99 Room Air 05/05/24 07:04 90 05/05/24 03:57 36.9 C 98 H 16 102/73 98 Room Air Laboratory Results Abnormal lab results 05/05/24 Range/Units 07:26 Chloride 112 H (98-107) mmol/L Carbon Dioxide 20 L (21-32) mmol/L BUN 26 H (6-23) mg/dl Creatinine 1.76 H (0.6-1.4) mg/dl Glucose 101 H (70-99(Fasting)) mg/dl Calcium 7.8 L (8.6-10.3) mg/dl PG Care Time/CCT Total # of Minutes Spent Total Time Spent with Patient: Total time spent is greater than 50% in coordination of care (as documented) at patient's floor/unit and/or counseling patient: Coding Level of Care Code 52403 SUB INP/OBS CARE 2/35MIN Diagnoses Acute on chronic respiratory failure with hypoxia J96.21 HIV (human immunodeficiency virus infection) Z21 HIV symptom status: unspecified Mycobacterium avium complex A31.0 Cachexia associated with AIDS B20; E88.A Emphysema lung J43.9 (2) HIV (human immunodeficiency virus infection) HIV symptom status: unspecified Qualified Code(s): Z21 - Asymptomatic human immunodeficiency virus [HIV] infection status
--- NOTE | 2024-05-05 18:48 | Nephrology Progress Note ---
Date of Service May 05, 2024 Assessment & Plan (1) Acute kidney injury: Plan: Recent KEERTHI attributed to ATN secondary to intravascular volume depletion related to ascites, diarrhea and poor PO intake. Creatinine trended down to 1.4 mg/dL but has risen slightly since IVF were stopped. NSS infusion restarted today. Margarito is non-oliguric. Several medications may affect kidney function but there are no concerns with dosing. Margarito remains on Bactrim and dolutegravir which both may raise serum creatinine. Clinical presentation consistent with failure to thrive. Concerns were discussed with Margarito. He expressed frustration that he is not able to eat or stay well hydrated due to chronic watery diarrhea. Blood work and urine studies will be updated tomorrow AM. (2) Hypokalemia: Plan: Potassium acceptable. Repeat labs tomorrow AM. (3) Metabolic acidosis: Plan: Oral NaHCO3 replacement ordered. (4) Cachexia associated with AIDS: Plan: Elevated creatinine may be associated with Bactrim and dolutegravir. Cachexia may also affect creatinine as reliable marker of kidney function. Consider assessment with cystatin C for future monitoring. We discussed how medications like tenofovir can affect kidney function. Thankfully no signs of proximal RTA. Importance of nutrition stressed. Importance of close monitoring reviewed. (5) Severe protein-calorie malnutrition: (6) Multifocal pneumonia: Plan: Thankfully amikacin trough levels have been acceptable. Nephrotoxicity from amikacin is possible but unlikely. (7) Anemia: (8) Mycobacterium avium complex: Admission and Anticipated Discharge Date Admission Date: April 27, 2024 Subjective Repeat nephrology evaluation was requested by Dr. Carter for rising serum creatinine. Margarito was seen and evaluated in his hospital room this evening. He reports poor appetite and ongoing frequent watery bowel movements. Abdominal distention is increasing. He feels that he will require drainage of ascites tomorrow. He denies fevers or chills. He denies any urinary symptoms or notable change in urine output. Margarito remains non-oliguric. Review of Systems Review of Systems: All systems reviewed & are unremarkable except as noted in HPI & below Physical Exam Constitutional: + cachectic and + frail appearing; no ac krish distress Eyes: + anicteric sclerae ENMT: Mouth: + dry oral mucous membranes Neck: normal visual inspection and trachea midline Respiratory: normal respiratory effort; no respiratory distress Auscultation: lungs clear to auscultation bilaterally Cardiovascular: Rate/Rhythm: + tachycardic Heart Sounds: normal S1 and normal S2 Vessels: no JVD Extremities: no edema Gastrointestinal (Abdomen): Inspection/Auscultation: + abdomen distended Percussion/Palpation: + ascites and + dullness to percussion Musculoskeletal: Extremities: no cyanosis Skin: no rashes, warm and dry Neurologic: Motor/Sensory: no tremor and no asterixis Psychiatric: Orientation: alert and oriented x 3 Results & Data Vital Signs (Past 12 Hours) Vital Signs Temp Pulse Pulse Resp BP BP Pulse Ox 05/05/24 18:41 96 H 05/05/24 16:02 37.0 C 86 17 109/83 100 05/05/24 11:58 36.6 C 99 H 18 111/79 99 05/05/24 08:30 05/05/24 07:51 36.8 C 101 H 18 114/69 99 05/05/24 07:04 90 O2 Del Method 05/05/24 18:41 05/05/24 16:02 Room Air 05/05/24 11:58 Room Air 05/05/24 08:30 Room Air 05/05/24 07:51 Room Air 05/05/24 07:04 Laboratory Results Laboratory Results - last 24 hr 05/02/24 05/03/24 05/03/24 07:39 15:29 17:35 Sodium Potassium Chloride Carbon Dioxide Anion Gap BUN Creatinine Est Cr Clr Drug Dosing eGFR BUN/Creatinine Ratio Glucose Calcium Amikacin Peak 57.6 Amikacin Trough 3.5 Random Amikacin 15.0 05/04/24 05/05/24 05/05/24 05:22 05:52 07:26 Sodium Cancelled 137 Potassium Cancelled 3.8 Chloride Cancelled 112 H Carbon Dioxide Cancelled 20 L Anion Gap Cancelled 5 BUN Cancelled 26 H Creatinine Cancelled 1.76 H Est Cr Clr Drug Dosing Cancelled 39.1 eGFR Cancelled 49.21 BUN/Creatinine Ratio Cancelled 14.8 Glucose Cancelled 101 H Calcium Cancelled 7.8 L Amikacin Peak Amikacin Trough Random Amikacin 18.6 05/05/24 12:24 Sodium Potassium Chloride Carbon Dioxide Anion Gap BUN Creatinine Est Cr Clr Drug Dosing eGFR BUN/Creatinine Ratio Glucose Calcium Amikacin Peak Pending Amikacin Trough Random Amikacin PG Care Time/CCT Total # of Minutes Spent Total Time Spent with Patient: Total time spent is greater than 50% in coordination of care (as documented) at patient's floor/unit and/or counseling patient: Coding Level of Care Code 25415 SUB INP/OBS CARE 3/50MIN Diagnoses Acute kidney injury N17.9 Hypokalemia E87.6 Metabolic acidosis E87.20 Cachexia associated with AIDS B20; E88.A Severe protein-calorie malnutrition E43 Multifocal pneumonia J18.9 Anemia D64.9 Mycobacterium avium complex A31.0
[2024-05-05] MEDS: SODIUM BICARBONATE 650 MG TAB PO SCH (21:39)
[2024-05-06 04:13] LABS: Appearance Urine Cloudy (Clear); Bacteria Urine Automated None Seen (None Seen); Bilirubin Urine Negative (Negative); Blood Urine Negative (Negative); Color Urine Yellow; Glucose Urine UA Negative (Negative); Ketones Urine Negative (Negative); Leukocyte Esterase Urine Trace (Negative); Nitrite Urine Negative (Negative); Protein Urine 1+ (Negative); Specific Gravity Urine 1.016 (1.000-1.030); Urobilinogen Urine Negative (Negative); WBC Urine Automated 0-5 /hpf (0-5)
[2024-05-06 07:15] LABS: Albumin Globulin Ratio 0.8 (0.9-2); Albumin Level 2.3 gm/dl (3.4-5.0); Bilirubin,Total 0.2 mg/dl (0.2-1.0); Calcium 7.6 mg/dl (8.6-10.3); Creatinine Clr Calc Pharmacy 37.3 ml/min; Globulin 2.9 gm/dl (2.5-4.0); Phosphorus 3.3 mg/dl (2.5-4.9); Potassium 3.8 mmol/L (3.5-5.1); Total Protein 5.2 gm/dl (6.0-8.3)
--- NOTE | 2024-05-06 09:50 | Nephrology Progress Note ---
Date of Service May 06, 2024 Assessment & Plan (1) Acute kidney injury: Plan: Recent KEERTHI attributed to ATN secondary to intravascular volume depletion related to ascites, diarrhea and poor PO intake. Creatinine trended down to 1.4 mg/dL but started to rise after IVF were stopped. An additional 1 L of NSS was provided overnight. Margarito is non-oliguric. Urine remains concentrated with a few RBCs and hyaline casts. No gross hematuria. Several medications may affect kidney function but there are no concerns with dosing. Margarito remains on Bactrim and dolutegravir which both may raise serum creatinine. Clinical presentation consistent with failure to thrive. Concerns were discussed with Margarito. He expressed frustration that he is not able to eat or stay well hydrated due to chronic watery diarrhea. Blood work will be updated tomorrow AM. (2) Metabolic acidosis: Plan: Continue oral NaHCO3 replacement. (3) Cachexia associated with AIDS: Plan: Elevated creatinine may be associated with Bactrim and dolutegravir. Cachexia may also affect creatinine as reliable marker of kidney function. Consider ass essment with cystatin C for future monitoring. We discussed how medications like tenofovir can affect kidney function. Thankfully no signs of proximal RTA. (4) Severe protein-calorie malnutrition: (5) Multifocal pneumonia: Plan: Thankfully amikacin trough levels have been acceptable. Nephrotoxicity from amikacin is possible. Close monitoring required. (6) Anemia: (7) Mycobacterium avium complex: (8) Ascites: Plan: Suggest administration of colloid (i.e. ~50 grams of IV SPA) with drainage of IVF. Admission and Anticipated Discharge Date Admission Date: April 27, 2024 Subjective No acute events overnight.tanna Pimentel is resting comfortably in bed. He continues to endorse frequent watery bowel movements (2x this AM). No abdominal pain. No fevers or chills. Appetite fair. Review of Systems Review of Systems: All systems reviewed & are unremarkable except as noted in HPI & below Physical Exam Constitutional: + cachectic and + frail appearing; no ac [place] distress Eyes: + anicteric sclerae ENMT: Mouth: oral mucous membranes not dry Neck: normal visual inspection and trachea midline Respiratory: normal respiratory effort; no respiratory distress Auscultation: lungs clear to auscultation bilaterally Cardiovascular: Rate/Rhythm: regular rate and regular rhythm Heart Sounds: normal S1 and normal S2 Extremities: no edema Gastrointestinal (Abdomen): Inspection/Auscultation: + abdomen distended Percussion/Palpation: + ascites; abdomen nontender Musculoskeletal: Extremities: no cyanosis Skin: no rashes, warm and dry Neurologic: Motor/Sensory: no tremor and no asterixis Psychiatric: Orientation: alert and oriented x 3 Results & Data Vital Signs (Past 12 Hours) Vital Signs Temp Pulse Pulse Resp BP BP Pulse Ox 05/06/24 07:22 36.6 C 80 17 101/70 100 05/06/24 03:22 36.7 C 81 16 105/74 99 05/05/24 23:34 85 05/05/24 23:08 36.8 C 99 H 16 106/72 98 O2 Del Method 05/06/24 07:22 Room Air 05/06/24 03:22 Room Air 05/05/24 23:34 05/05/24 23:08 Room Air Laboratory Results Laboratory Results - last 24 hr 05/02/24 05/03/24 05/03/24 07:39 15:29 17:35 Sodium Potassium Chloride Carbon Dioxide Anion Gap BUN Creatinine Est Cr Clr Drug Dosing eGFR BUN/Creatinine Ratio Glucose Calcium Phosphorus Total Bilirubin AST ALT Alkaline Phosphatase Total Protein Albumin Globulin Albumin/Globulin Ratio Urine Color Urine Appearance Urine pH Ur Specific [place] Urine Protein Urine Glucose (UA) Urine Ketones Urine Blood Urine Nitrite Urine Bilirubin Urine Urobilinogen Ur Leukocyte Esterase Urine WBC (Auto) Urine RBC (Auto) U Hyaline Cast (Auto) U Epithel Cells (Auto) Urine Bacteria (Auto) Amikacin Peak 57.6 Amikacin Trough 3.5 Random Amikacin 15.0 05/04/24 05/05/24 05/06/24 05:22 12:24 05:35 Sodium 137 Potassium 3.8 Chloride 112 H Carbon Dioxide 19 L Anion Gap 6 BUN 26 H Creatinine 1.86 H Est Cr Clr Drug Dosing 37.3 eGFR 46.05 BUN/Creatinine Ratio 14.0 Glucose 71 Calcium 7.6 L Phosphorus 3.3 Total Bilirubin 0.2 AST 16 ALT 17 Alkaline Phosphatase 142 H Total Protein 5.2 L Albumin 2.3 L Globulin 2.9 Albumin/Globulin Ratio 0.8 L Urine Color Urine Appearance Urine pH Ur Specific [place] Urine Protein Urine Glucose (UA) Urine Ketones Urine Blood Urine Nitrite Urine Bilirubin Urine Urobilinogen Ur Leukocyte Esterase Urine WBC (Auto) Urine RBC (Auto) U Hyaline Cast (Auto) U Epithel Cells (Auto) Urine Bacteria (Auto) Amikacin Peak 74.2 Amikacin Trough Random Amikacin 18.6 05/06/24 Unknown Sodium Potassium Chloride Carbon Dioxide Anion Gap BUN Creatinine Est Cr Clr Drug Dosing eGFR BUN/Creatinine Ratio Glucose Calcium Phosphorus Total Bilirubin AST ALT Alkaline Phosphatase Total Protein Albumin Globulin Albumin/Globulin Ratio Urine Color Yellow Urine Appearance Cloudy A Urine pH 5.0 Ur Specific [place] 1.016 Urine Protein 1+ H Urine Glucose (UA) Negative Urine Ketones Negative Urine Blood Negative Urine Nitrite Negative Urine Bilirubin Negative Urine Urobilinogen Negative Ur Leukocyte Esterase Trace H Urine WBC (Auto) 0-5 Urine RBC (Auto) 3-5 H U Hyaline Cast (Auto) 11-20 H U Epithel Cells (Auto) 6-10 H Urine Bacteria (Auto) None Seen Amikacin Peak Amikacin Trough Random Amikacin PG Care Time/CCT Total # of Minutes Spent Total Time Spent with Patient: Total time spent is greater than 50% in coordination of care (as documented) at patient's floor/unit and/or counseling patient: Coding Level of Care Code 97765 SUB INP/OBS CARE 3/50MIN Diagnoses Acute kidney injury N17.9 Metabolic acidosis E87.20 Cachexia associated with AIDS B20; E88.A Severe protein-calorie malnutrition E43 Multifocal pneumonia J18.9 Anemia D64.9 Mycobacterium avium complex A31.0 Ascites R18.0 Ascites type: malignant (8) Ascites Ascites type: malignant Qualified Code(s): R18.0 - Malignant ascites
[2024-05-06] MEDS: ALBUMIN 25% 25 GM/100 ML VIAL IV SCH (13:33)
--- NOTE | 2024-05-06 14:10 | Hospitalist Progress Note ---
Date of Service May 06, 2024 Assessment & Plan (1) Acute on chronic respiratory failure with hypoxia: (2) HIV (human immunodeficiency virus infection): (3) Mycobacterium avium complex: Plan: disseminated (4) Cachexia associated with AIDS: Plan: severe protein-calorie malnutrition (5) Emphysema lung: Plan Acute on chronic respiratory failure with hypoxia/chronic MAC infection- multifocal pneumonia and sepsis suspected on admission Respiratory failure/sepsis resolved Currently on room air, considered Most likely related to mucous plugging with its rapid resolution Azithromycin was switched to doxycycline by pulmonary. Patient completed doxycycline course Acute kidney injury Normal renal function at baseline Nephrology consulted. considered possible ATN from illness, hydrated, concern with ascites and consideration of ascitic fluid removal It could be postrenal due to ascites causing obstruction. Ascitic fluid removed 04/29. 05/01, 05/04 Creatinine got better initially and then started getting worse again. Today creatinine is at 1.8 Nephrology reconsulted He has been encouraged to drink fluids to keep up with his fluid loss in bowel movements. Patient was given IV fluid yesterday with no improvement Several medications that could be playing a role: Bactrim, dolutegravir, tenofovir Monitor closely Patient's is being given albumin post paracentesis today. Disseminated MAC with retroperitoneal mass and recurrent ascites/HIV Patient was diagnosed with HIV in 2013., Has been on Biktarvy since 2021 Regimen changed recently to Tedezolid, Rifabutin, Ethambutol and Amikacin. Amikacin renal dose. Amikacin random level was 2.4 per nephrology note. (recent information states [facility] [place] ID culture showed resistence to azithromycin and levafloxacin ) While at [facility] upon recent transfer, CT abdomen showed severe extrinsic compression of portal vein due to soft tissue mass and multifocal retroperitoneal and mesenteric soft tissue. Biiopsy of mass and Peritoneal fluid grew MAC. Peritoneal fluid was also positive for Estrella albicans which was treated with a 2-week course of fluconazole. A tunneled ascites drain was placed for recurrent ascites that was being accessed at the present to drain ascitic fluid. Infectious disease involved His surgical pathology and flow cytometry did not show any evidence of malignancy/lymphoma but did show evidence of MAC in the peritoneum which is likely causing his recurrent ascites. Hypotension-initial concern for sepsis ruled out Patient is cachectic/sarcopenic and has baseline hypotension Blood pressure stable but low and the patient is feeling improved, but still too weak to even try to use bedside commode Discontinued IV hydrocortisone Continue to hold spironolactone Overall pt is declining, he is unrealistic about his recovery. Tried to discuss palliative care options. He is still hopeful for recovery. DVT Prophylaxis- Continue lovenox 30mg SQ daily Admission and Anticipated Discharge Date Admission Date: April 27, 2024 Subjective Patient was seen and examined at 11:15 AM. He continues with severe fatigue and muscle wasting. I had a detailed discussion about his general condition overall and guarded prognosis. He is not ready to accept a palliative approach. He shows that he has not lost hope yet. Physical Exam Physical Exam: General: Awake, conversant, cachectic with intercostal and bitemporal muscle wasting. Frail and chronically ill-looking Heart: S1, S2/regular rate and rhythm, no murmur rubs or gallops Lungs: Clear to auscultation bilaterally. Normal effort Abdomen: Soft/nontender/distended. Positive shifting dullness. Positive bowel sounds Extremities: No clubbing/cyanosis. No edema Behavior: Appropriate, cooperative Results & Data Results & Data Vital Signs (Past 12 Hours) Vital Signs Temp Pulse Pulse Resp BP BP Pulse Ox 05/06/24 14:02 82 05/06/24 10:49 36.8 C 84 17 94/64 L 99 05/06/24 08:15 85 05/06/24 08:15 05/06/24 07:22 36.6 C 80 17 101/70 100 05/06/24 03:22 36.7 C 81 16 105/74 99 O2 Del Method 05/06/24 14:02 05/06/24 10:49 Room Air 05/06/24 08:15 05/06/24 08:15 Room Air 05/06/24 07:22 Room Air 05/06/24 03:22 Room Air Laboratory Results Abnormal lab results 05/06/24 05/06/24 Range/Units 05:35 Unknown Chloride 112 H (98-107) mmol/L Carbon Dioxide 19 L (21-32) mmol/L BUN 26 H (6-23) mg/dl Creatinine 1.86 H (0.6-1.4) mg/dl Calcium 7.6 L (8.6-10.3) mg/dl Alkaline Phosphatase 142 H (34-104) U/L Total Protein 5.2 L (6.0-8.3) gm/dl Albumin 2.3 L (3.4-5.0) gm/dl Albumin/Globulin Ratio 0.8 L (0.9-2) Urine Appearance Cloudy A (Clear) Urine Protein 1+ H (Negative) Ur Leukocyte Esterase Trace H (Negative) Urine RBC (Auto) 3-5 H (0-2) /hpf U Hyaline Cast (Auto) 11-20 H (0-2) /lpf U Epithel Cells (Auto) 6-10 H (0-2) /hpf PG Care Time/CCT Total # of Minutes Spent Total Time Spent with Patient: Total time spent is greater than 50% in coordination of care (as documented) at patient's floor/unit and/or counseling patient: Coding Level of Care Code 67414 SUB INP/OBS CARE 2/35MIN Diagnoses Acute on chronic respiratory failure with hypoxia J96.21 HIV (human immunodeficiency virus infection) Z21 HIV symptom status: unspecified Mycobacterium avium complex A31.0 Cachexia associated with AIDS B20; E88.A Emphysema lung J43.9 (2) HIV (human immunodeficiency virus infection) HIV symptom status: unspecified Qualified Code(s): Z21 - Asymptomatic human immunodeficiency virus [HIV] infection status
[2024-05-07 07:31] LABS: BUN Creatinine Ratio 14.8 (10-20); Calcium 7.5 mg/dl (8.6-10.3); Creatinine Clr Calc Pharmacy 45.7 ml/min; Potassium 3.1 mmol/L (3.5-5.1)
[2024-05-07] MEDS: POTASSIUM CHLORIDE CRTAB 20 MEQ TABCR PO STA (09:42)
--- NOTE | 2024-05-07 10:36 | Nephrology Progress Note ---
Date of Service May 07, 2024 Assessment & Plan (1) Acute kidney injury: Plan: Recent KEERTHI attributed to ATN secondary to intravascular volume depletion related to ascites, diarrhea and poor PO intake. Creatinine trended down to 1.4 mg/dL but started to rise after IVF were stopped. Creatinine is now improving with intravascular volume expansion with IV fluids followed by IV albumin. Clinical presentation is failure to thrive related to salt and water losses from ongoing diarrhea and recurrent ascites. Margarito is non-oliguric. Several medications may affect kidney function but there are no concerns with dosing. Margarito remains on Bactrim and dolutegravir which both may raise serum creatinine. Concerns were discussed with Margarito again today. Blood work will be updated tomorrow AM. IVF held today. Oral intake encouraged. (2) Metabolic acidosis: Plan: Continue oral NaHCO3 replacement. (3) Cachexia associated with AIDS: Plan: Elevated creatinine may be associated with Bactrim and dolutegravir. Cachexia may also affect creatinine as reliable marker of kidney function. Consider assessment with cystatin C for future monitoring. We discussed how medications like tenofovir can affect kidney function. Thankfully no signs of proximal RTA. (4) Severe protein-calorie malnutrition: (5) Multifocal pneumonia: Plan: Thankfully amikacin trough levels have been acceptable. Nephrotoxicity from amikacin is possible. Close monitoring required. (6) Anemia: (7) Mycobacterium avium complex: (8) Ascites: Plan: Suggest administration of colloid (i.e. ~50 grams of IV SPA) with drainage of IVF. Admission and Anticipated Discharge Date Admission Date: April 27, 2024 Subjective No acute events overnight. 3 x loose, watery bowel movements this AM. Continues to deny abdominal pain. Appetite fair. Abdominal distention improved immediately following drainage of ascites yesterday but reaccumulated within hours. No fevers or chills. Review of Systems Review of Systems: All systems reviewed & are unremarkable except as noted in HPI & below Physical Exam Constitutional: + cachectic and + frail appearing; no ac venetie distress Eyes: + anicteric sclerae ENMT: Mouth: oral mucous membranes not dry Neck: normal visual inspection and trachea midline Respiratory: normal respiratory effort; no respiratory distress Auscult ation: lungs clear to auscultation bilaterally Cardiovascular: Rate/Rhythm: regular rate and regular rhythm Heart Sounds: normal S1 and normal S2 Extremities: + pedal edema Gastrointestinal (Abdomen): Inspection/Auscultation: + abdomen distended Percussion/Palpation: + ascites and + dullness to percussion; abdomen nontender Musculoskeletal: Extremities: no cyanosis Skin: no rashes, warm and dry Neurologic: Motor/Sensory: no tremor and no asterixis Psychiatric: Orientation: alert and oriented x 3 Results & Data Vital Signs (Past 12 Hours) Vital Signs Temp Pulse Pulse Resp BP BP Pulse Ox 05/07/24 10:29 36.6 C 84 17 100/72 100 05/07/24 09:02 05/07/24 07:10 36.9 C 87 16 99/67 L 99 05/07/24 03:36 37.1 C 104 H 19 109/77 05/07/24 00:00 86 05/06/24 23:37 36.9 C 87 18 99/66 L 98 O2 Del Method 05/07/24 10:29 Room Air 05/07/24 09:02 Room Air 05/07/24 07:10 Room Air 05/07/24 03:36 Room Air 05/07/24 00:00 05/06/24 23:37 Room Air Laboratory Results Laboratory Results - last 24 hr 04/29/24 05/07/24 Unknown 06:06 Sodium 138 Potassium 3.1 L Chloride 112 H Carbon Dioxide 20 L Anion Gap 6 BUN 24 H Creatinine 1.62 H Est Cr Clr Drug Dosing 45.7 eGFR 54.35 BUN/Creatinine Ratio 14.8 Glucose 102 H Calcium 7.5 L U Histopl Galactoman Ag <0.2 PG Care Time/CCT Total # of Minutes Spent Total Time Spent with Patient: Total time spent is greater than 50% in coordination of care (as documented) at patient's floor/unit and/or counseling patient: Coding Level of Care Code 79686 SUB INP/OBS CARE 3/50MIN Diagnoses Acute kidney injury N17.9 Metabolic acidosis E87.20 Cachexia associated with AIDS B20; E88.A Severe protein-calorie malnutrition E43 Multifocal pneumonia J18.9 Anemia D64.9 Mycobacterium avium complex A31.0 Ascites R18.0 Ascites type: malignant (8) Ascites Ascites type: malignant Qualified Code(s): R18.0 - Malignant ascites
--- NOTE | 2024-05-07 12:18 | Hospitalist Progress Note ---
Date of Service May 07, 2024 Assessment & Plan (1) Acute on chronic respiratory failure with hypoxia: (2) HIV (human immunodeficiency virus infection): (3) Mycobacterium avium complex: Plan: disseminated (4) Cachexia associated with AIDS: Plan: severe protein-calorie malnutrition (5) Emphysema lung: Plan Acute on chronic respiratory failure with hypoxia/chronic MAC infection- multifocal pneumonia and sepsis suspected on admission Respiratory failure/sepsis resolved Currently on room air, considered Most likely related to mucous plugging with its rapid resolution Azithromycin was switched to doxycycline by pulmonary. Patient completed doxycycline course Acute kidney injury Normal renal function at baseline Nephrology consulted. considered possible ATN from illness, hydrated, concern with ascites and consideration of ascitic fluid removal It could be postrenal due to ascites causing obstruction. Ascitic fluid removed 04/29. 05/01, 05/04 Creatinine got better initially and then started getting worse again. Today creatinine is at 1.6 Nephrology reconsulted He has been encouraged to drink fluids to keep up with his fluid loss in bowel movements. Patient was given IV fluid yesterday with minimal improvement Several medications that could be playing a role: Bactrim, dolutegravir, tenofovir Monitor closely Patient was being given albumin post paracentesis 05/06 Today 05/07, creatinine is slightly better at 1.6 from 1.8 Disseminated MAC with retroperitoneal mass and recurrent ascites/HIV Patient was diagnosed with HIV in 2013., Has been on Biktarvy since 2021 Regimen changed recently to Tedezolid, Rifabutin, Ethambutol and Amikacin. Amikacin renal dose. Amikacin random level was 2.4 per nephrology note. (rece nt information states [facility] [place] showed resistence to azithromycin and levafloxacin ) While at [facility] upon recent transfer, CT abdomen showed severe extrinsic compression of portal vein due to soft tissue mass and multifocal retroperitoneal and mesenteric soft tissue. Biiopsy of mass and Peritoneal fluid grew MAC. Peritoneal fluid was also positive for Estrella albicans which was treated with a 2-week course of fluconazole. A tunneled ascites drain was placed for recurrent ascites that was being accessed at the present to drain ascitic fluid. Infectious disease involved His surgical pathology and flow cytometry did not show any evidence of malignancy/lymphoma but did show evidence of MAC in the peritoneum which is likely causing his recurrent ascites. Hypotension-initial concern for sepsis ruled out Patient is cachectic/sarcopenic and has baseline hypotension Blood pressure stable but low and the patient is feeling improved, but still too weak to even try to use bedside commode Discontinued IV hydrocortisone Continue to hold spironolactone Overall pt is declining, he is still unrealistic about his recovery. Discussed palliative care options. He continues to think about it but does not have an answer yet DVT Prophylaxis- Continue lovenox 30mg SQ daily Admission and Anticipated Discharge Date Admission Date: April 27, 2024 Subjective Patient was seen and examined at 10:25 AM. He complains of feeling weak in general but no other complaints at this time. He says he gave some thoughts into our discussion about goals of care from yesterday. He does not have an answer yet. He asks me what I would recommend. I reiterated that I think his prognosis is guarded. Review of Systems Review of Systems: All systems reviewed & are unremarkable except as noted in Subjective Physical Exam Physical Exam: General: Awake, conversant, cachectic with intercostal and bitemporal muscle wasting. Frail and chronically ill-looking Heart: S1, S2/regular rate and rhythm, no murmur rubs or gallops Lungs: Clear to auscultation bilaterally. Normal effort Abdomen: Soft/nontender/distended. Positive shifting dullness. Positive bowel sounds Extremities: No clubbing/cyanosis. No edema Behavior: Appropriate, cooperative Results & Data Results & Data Vital Signs (Past 12 Hours) Vital Signs Temp Pulse Pulse Resp BP BP Pulse Ox 05/07/24 10:55 100 H 05/07/24 10:29 36.6 C 84 17 100/72 100 05/07/24 09:02 05/07/24 07:10 36.9 C 87 16 99/67 L 99 05/07/24 03:36 37.1 C 104 H 19 109/77 O2 Del Method 05/07/24 10:55 05/07/24 10:29 Room Air 05/07/24 09:02 Room Air 05/07/24 07:10 Room Air 05/07/24 03:36 Room Air Laboratory Results Abnormal lab results 05/07/24 Range/Units 06:06 Potassium 3.1 L (3.5-5.1) mmol/L Chloride 112 H (98-107) mmol/L Carbon Dioxide 20 L (21-32) mmol/L BUN 24 H (6-23) mg/dl Creatinine 1.62 H (0.6-1.4) mg/dl Glucose 102 H (70-99(Fasting)) mg/dl Calcium 7.5 L (8.6-10.3) mg/dl PG Care Time/CCT Total # of Minutes Spent Total Time Spent with Patient: Total time spent is greater than 50% in coordination of care (as documented) at patient's floor/unit and/or counseling patient: Coding Level of Care Code 09905 SUB INP/OBS CARE 2/35MIN Diagnoses Acute on chronic respiratory failure with hypoxia J96.21 HIV (human immunodeficiency virus infection) Z21 HIV symptom status: unspecified Mycobacterium avium complex A31.0 Cachexia associated with AIDS B20; E88.A Emphysema lung J43.9 (2) HIV (human immunodeficiency virus infection) HIV symptom status: unspecified Qualified Code(s): Z21 - Asymptomatic human immunodeficiency virus [HIV] infection status
[2024-05-07] MEDS: AMIKACIN SULFATE IV ONE (14:42)
[2024-05-07] MEDS: DEXTROSE 5% IV ONE (14:42)
--- NOTE | 2024-05-07 15:41 | Pharmacy Report ---
Pharmacy PK ABX Note - Date of Service May 07, 2024 - Assessment and Plan Assessment 05/07: * SCr still variable, but overall ranging not too much * Peak drawn at appropriate time on 05/05 and was therapeutic at 74.2 mcg/mL. Will continue 1500 mg dose. * Prior trough drawn on 05/03 was therapeutic - will obtain another trough 05/09 after dose increase. Maintain same interval for now. * Anticipate another 1500 mg on Sunday with peak level obtained. Thus, trough and peak will be obtained Sunday prior to the weekend. 05/05: * SCr worsening again today. May continue to be a moving target. Ongoing frequent level monitoring indicated. * Agree with prior documentation to increase dose to 1500 mg IV x1 today. Will assess peak with this dose and trough on Sunday AM. 05/04: * Amikacin trough yesterday was drawn appropriately and was 3.5 mcg/mL which was therapeutic. Believe a Sunday, Sunday, Sunday schedule is appropriate to transition to starting tomorrow. * Amikacin peak yesterday was drawn slightly late (~45 mins following completion of dose; peak drawn late is preferable to being drawn early) and was 57.6 mcg/mL which was subtherapeutic. At this point, I would consider increasing tomorrow's dose to 1500 mg which is ~30 mg/kg actual BW (~20 mg/kg IBW). Will leave this decision for floor pharmacist and antimicrobial stewardship pharmacist to discuss tomorrow. * Did order a random level for this AM which is pending. 05/03: * Random level drawn yesterday was 15.0 mcg/mL. Predicted trough prior to today's dose is 2.3 mcg/mL while the predicted peak is 60.6 mcg/mL. * Will increase dose slightly and give 1250 mg IV x 1 today at 1600. Spoke with patient's RN and instructed to please administer dose as close to 1600 as possible. The predicted peak is subtherapeutic but hesitant to increase dose any further than 25 mg/kg today given SCr is trending back up (1.4 yest --> 1.6 today) and UO has been minimal today per health and safety coordinator. Should peak return subtherapeutic, would consider increasing to 1500 mg which is almost 30 mg/kg. * Will reach out to second shift plant maintenance engineer to educate on importance of drawing peak and troughs on time. Both peak levels have been drawn slightly early. * Will order a random level with AM labs tomorrow as well so clinical pharmacist on Sunday has some information prior to another dose being given. 05/02 * Trough yesterday was 2.9 mcg/mL which was therapeutic. q48h interval likely appropriate (or possibly TIW once get back on the // schedule) * Peak yesterday was 53.2 mcg/mL which may be subtherapeutic. However, was drawn a little early. Unclear if this will affect the level significantly. Dose increase may be warranted, but hesitant to be too aggressive with increase in next dose. * Random level obtained this AM as unclear if will be able to get additional results over this weekend. Assuming SCr doesn't worsen and level from today is not worrisome for accumulation, anticipate 1250 mg (25 mg/kg) IV x1 tomorrow, with obtaining trough before the dose and peak after the dose. 05/01 * Peak amikacin level yesterday of 70.6 mcg/mL is therapeutic. However, this level is likely falsely elevated due to being drawn early. See 04/30. Will keep same dose as previous and assess another peak with next dose. * SCr improving today to 1.7 mg/dL * Random level yesterday 9.7 mcg/mL. * Trough ordered for 1545 today. * D/w Dr. Elmore - trough level will not come back until likely tomorrow AM. Based on trend in last two levels, anticipate trough is likely to be therapeutic, but interpretation is complicated by not drawing peak at the correct time and changing SCr. Discussed risk/benefit of giving a dose today vs. delaying until tomorrow AM - Dr. Elmore noted would give today. 04/30 * Amikacin admin at 1545 yesterday. Infusion completed at 1647. Peak was to be drawn 30 minutes later at 1717 and phlebotomy was called and notified of the importance of this timing. However, level was drawn 20 minutes too early at 1657, prior to the distribution phase of amikacin completing. Level therefore will be falsely elevated, but not able to tell how falsely elevated since it will be affected both by distribution and elimination. * Will order a random level today. It may not necessarily be helpful to back- calculate a peak, but could give an idea of patient-specific ke when evaluated in conjunction with trough tomorrow. However, patient-specific calculated ke can only be interpreted in the context of stable renal function, which is also potentially an issue 04/29 * Case discussed w Dr. Elmore again today with the following assessment/plan: * Rifabutin and tedizolid have been obtained from [facility]. * SCr continues to worsen, now 2.16 mg/dL w eCrCL 32 * Amikacin trough level yesterday AM was therapeutic at 2.4 mcg/mL (note - results available in scanned reports section, not in laboratory section). * Truvada dose clarified w [facility] - is 1 tab (200/300) po *daily*. Med history adjusted (originally noted BID). However, this is now renally adjusted to q48h. If it needs to be held 2nd worsening renal function, dolutegravir likely will also need to be held * Plan as of now is to resume the prior outpatient regimen (ethambutol, rifabutin, tedizolid, and amikacin), pending additional outpatient data / cultures * Full 1200 mg dose of amikacin today despite KEERTHI noted - dose relates to *efficacy* / peak. However, anticipate interval may need to be lengthened due to KEERTHI as interval relates to *toxicity* / trough. * Will obtain peak level 30 minutes after the end of the amikacin infusion. This is a send out but delay in results will be insignificant as this will inform how much to give for the next dose which will not be for a minimum of 48 hours. * Will obtain trough level 48 hours after the peak level. This is a send- out, but since interval may need to be longer than 48 hours 2nd KEERTHI this is less likely to impact care 04/28 * Trough level ordered this AM. Called [facility] lab and spoke w Adolfo this AM - this is a send out to [place] results faxed to us ~2-3 hours after they receive it. Katie had already been called and requested. Hopefully, will receive results today. * SCr increased today to 1.98 mg/dL * Discussed dosing w [facility] pharmacist (Serg[facility]) - KEERTHI noted, but as long as trough is <4, OK to re-dose at full 1200 mg when appropriate. Plan to adjust frequency based on trough levels and dose based on peak levels. Will obtain peak level with next dose, to be drawn 30 minutes after completion of the infusion * Called lab at 1500 - no results from [place], yet. They will fax result to us. Asked lab to monitor for result periodically tonight and call pharmacy [phone] if/when result is obtained * ID consulted - spoke w Dr. Elmore at 1530 - unclear what regimen is, but may be combo of rifabutin, tedizolid, amikacin, and ethambutol. Currently only ethambutol ordered / being administered because we're waiting on amikacin level and waiting on [facility] to bring in rifabutin and tedizolid - unclear if they have been asked to do so. Per Dr. Elmore - partial regimen likely more of a risk due to increased resistance, which is apparently already an issue for this patient with macrolide resistance. Unclear if tedizolid is part of the regimen, although it can be used for MAC. Will therefore hold amikacin tonight - Dr. Whitman in agreement. She noted intent to call [facility] and speak with the [facility] directly today. 04/27 * 43 year old M receiving IV amikacin for treatment of chronic MAC infection. * Spoke with [facility] RN today, dosing/regimen verified. Patient is receiving amikacin 1200mg (~23mg/kg/dose) IV daily on . Last dose was 04/25 @ 0837. * Therapy was initiated by [facility] medical staff coordinator Dr. Ascencion Powers (being managed by Dr. Powers) on 04/21/24. Regimen was recommended by [facility]. * Confirmed that no levels have been drawn since therapy initiated. * Patient with KEERTHI currently (SCr 1.67-->1.45), baseline ~ 1mg/dl. Plan Amikacin * Goal trough < 5 mcg/mL. Prior trough wnl - TIW regimen likely reasonable. * Goal peak for intermittent TIW dosin-80 mcg/mL. Prior peak therapeutic - continue same dose * Amikacin 1500 mg IV x1 today - administered at 1442 for 1 hr 2 min infusion. * Trough ordered 05/09 @ 1442, which is 48 hours after the start of today's infusion Pharmacy will continue to follow and will adjust dose/frequency as necessary. Thank you.
[2024-05-07 20:06] VITALS: RESP 18
[2024-05-08 03:19] VITALS: TEMP 98.1
[2024-05-08 07:44] LABS: Calcium 7.8 mg/dl (8.6-10.3); Creatinine Clr Calc Pharmacy 44.7 ml/min; Potassium 3.6 mmol/L (3.5-5.1)
[2024-05-08 08:05] VITALS: O2SAT 100
--- NOTE | 2024-05-08 09:52 | Discharge Summary ---
Date of Service May 08, 2024 Admission HPI Per Admitting Provider The patient is a 43-year-old male resident of [facility], with known past medical history including chronic MAC, HIV/AIDS, chronic respiratory failure, cachexia, malignant ascites, severe protein calorie malnutrition, hypotension, COPD, LVH, previous sepsis and anemia. He presents to the emergency department with worsening shortness of breath that became more acute earlier in the morning on 04/26/2024. He was brought to the emergency department, where he is found to be hypoxic, which improved with BiPAP, and then converted to CPAP. Blood pressure was relatively low, with systolic blood pressure at its lowest 78, and did improve with IV fluids given in the ED to the mid 90s. Admission Exam Per Admitting Provider The patient is awake, alert and oriented 3, signs of cachexia, normocephalic and atraumatic, lying in bed and in no acute distress. HEENT--PERRL, EOMI, mucous membranes and oropharynx dry. Neck--supple.No JVD. No bruits. Thyroid normal, trachea midline, no adenopathy. Heart--normal S1 and S2.No murmurs, rubs or gallops. Lungs--coarse breath sounds bilaterally. No respiratory distress, no accessory muscle use on BiPAP Abdomen--normal bowel sounds and soft. Nontender. Nondistended, no hernias or masses,no organomegaly. Extremities--no cyanosis or clubbing. No edema. There are good distal pulses b/l. Dermatologic--normal skin turgor, normal color, no abnormal lymph nodes, no rash. Neurologic--cranial nerves II through XII grossly intact. Rheumatologic--normal range of motion. Psychiatric--normal affect. Principal Diagnosis Acute on chronic hypoxic respiratory failure likely due to mucous plugging Disseminated MAC infection HIV Cachexia associated with AIDS - Acute renal failure Discharge Exam General: Awake, conversant, cachectic with intercostal and bitemporal muscle wasting. Frail and chronically ill-looking Heart: S1, S2/regular rate and rhythm, no murmur rubs or gallops Lungs: Clear to auscultation bilaterally. Normal effort Abdomen: Soft/nontender/distended. Positive shifting dullness. Positive bowel sounds Extremities: No clubbing/cyanosis. No edema Behavior: Appropriate, cooperative Discharge Data Allergies Allergy/AdvReac Type Severity Reaction Status Date / Time No Known Allergies Allergy Verified 04/03/24 11:16 Consultations 04/27/24 02:28 Consult Infectious Diseases Routine Consult Pulmonology Routine 04/29/24 08:41 Consult Nephrology Routine Ordered Studies 04/27/24 00:48 CT chest without contrast [CT chest diagnostic wo con] Stat Hospital Course (1) Acute on chronic respiratory failure with hypoxia: (2) HIV (human immunodeficiency virus infection): (3) Mycobacterium avium complex: disseminated (4) Cachexia associated with AIDS: severe protein-calorie malnutrition (5) Emphysema lung: Plan Acute on chronic respiratory failure with hypoxia/chronic MAC infection- multifocal pneumonia and sepsis suspected on admission Respiratory failure/sepsis resolved Currently on room air, considered Most likely related to mucous plugging with its rapid resolution Azithromycin was switched to doxycycline by pulmonary. Patient completed doxycycline course Acute kidney injury Normal renal function at baseline Nephrology consulted. considered possible ATN from illness, hydrated, concern with ascites and consideration of ascitic fluid removal It could be postrenal due to ascites causing obstruction. Ascitic fluid removed 04/29. 05/01, 05/04 Creatinine got better initially and then started getting worse again. Nephrology reconsulted He has been encouraged to drink fluids to keep up with his fluid loss in bowel movements. Patient was given IV fluid yesterday with minimal improvement Several medications that could be playing a role: Bactrim, dolutegravir, tenofovir. Creatinine has been stable in the 1.6-1.8 range Monitor closely Patient was being given albumin post paracentesis Renal function will need to be closely monitored Nutrition n.p.o. fluid intake will need to be encouraged Disseminated MAC with retroperitoneal mass and recurrent ascites/HIV Patient was diagnosed with HIV in 2013., on Biktarvy since 2021 Regimen changed recently to Tedezolid, Rifabutin, Ethambutol and Amikacin. Amikacin renal dose. Amikacin random level was 2.4 per nephrology note. (recent information states [facility] [place] [facility] culture showed resistence to azithromycin and levafloxacin ) While at [facility] upon recent transfer, CT abdomen showed severe extrinsic compression of portal vein due to soft tissue mass and multifocal retroperitoneal and mesenteric soft tissue. Biiopsy of mass and Peritoneal fluid grew MAC. Peritoneal fluid was also positive for Estrella albicans which was treated with a 2-week course of fluconazole. A tunneled ascites drain was placed for recurrent ascites that was being accessed at the present to drain ascitic fluid. Infectious disease involved His surgical pathology and flow cytometry did not show any evidence of malignancy/lymphoma but did show evidence of MAC in the peritoneum which is likely causing his recurrent ascites. Hypotension-initial concern for sepsis ruled out Patient is cachectic/sarcopenic and has baseline hypotension Blood pressure stable but low and the patient is feeling improved, but still too weak to even try to use bedside commode Discontinued IV hydrocortisone Continue to hold spironolactone Overall pt is declining, he is still unrealistic about his recovery. Discussed palliative care options. He continues to think about it but does not have an answer yet Stable for discharge back to nursing home. I personally spoke to LORAINE Bustamante at nursing home to give her an update. Total Time Total Time Spent Total Time Spent (In Minutes): 35 Discharge Plan Discharge Items [facility] Reason For Visit: SEPSIS,ACUTE CHRONIC RESP FAILURE,HYPOXIA,MAC,AXI Discharge Diagnosis: Acute on chronic hypoxic respiratory failure likely due to mucous plugging Disseminated MAC infection HIV Cachexia associated with AIDS - Acute renal failure Activity: Resume your previous activity Non-emergency contact: Primary Care Provider Call non-emergency contact if: you have any medication questions and your symptoms worsen Follow-up/Referrals: Tonya ORTIZ [Primary Care Provider] - Diet: Regular Addtl Attending Provider Instructions: Advised to take medications regularly Advised to follow-up with the doctor at the nursing home. ID recommendation: - Continue Truvada. Truvada currently dosed q48h given KEERTHI ( cr cl ~ 40) Once crcl >50 dose Truvada [id number] as prior to KEERTHI. -Continue Dolutegravir 50 mg po BID - Bontinue bactrim ppx -Continue ethambutol, tedizolid and rifabutin -continue Amikacin based on pharm dosing/levels -Follow up Crypto ag, PJP sputum, histo urine ag, fungitell - Monitor WBC ( last checked 04/29 and elevated at 16.85) and Cr Pending Studies at Discharge: No Stand-Alone Forms: My [facility] Skilled Items Patient informed of condition?: Yes Discharge Level of Care: Other Communicable Disease: No Discharge Prognosis: Stable Lines: Rogers Urinary Catheter: No Medications and DC Order Prescriptions: New emtricitabine-tenofovir (TDF) [Truvada] 200-300 mg Tablet 1 tab PO Q48H Qty: 14 0RF Continued A&D Ointment 1 applic topical DAILY Rx Instructions: KOP multivitamin Tablet 1 tab PO DAILY acetaminophen [Tylenol] 325 mg Tablet 650 mg PO QID PRN (Reason: Pain) loperamide [Imodium A-D] 2 mg Tablet 2 mg PO TID PRN (Reason: Diarrhea) midodrine 5 mg Tablet 5 mg PO BID Rx Instructions: Hold for SBP <100, do not give last dose of day after 6PM or within 4 hrs of bedtime sulfamethoxazole-trimethoprim [Bactrim DS] 800-160 mg Tablet 1 tab PO DAILY Rx Instructions: End on 01/19/2025 ethambutol 400 mg Tablet 800 mg PO DAILY Rx Instructions: Take with 50 mg to = 850 mg ethambutol 100 mg Tablet 50 mg PO DAILY Rx Instructions: Take with two 400 mg tabs = 850 mg ergocalciferol (vitamin D2) [Vitamin D2] 1,250 mcg (50,000 unit) Capsule 1,250 mcg PO .WEEKLY Rx Instructions: FRI Acidophilus Capsule 0 mg PO BID brimonidine 0.15 % Drops 1 drp OPL BID Rx Instructions: KOP cholestyramine (with sugar) [Questran] 4 gram Powder In Packet 4 g PO BID cholecalciferol (vitamin D3) [Vitamin D3] 25 mcg (1,000 unit) Tablet 25 mcg PO DAILY difluprednate 0.05 % Drops 1 drp OPL .6XS Rx Instructions: 6 times a day in left eye. KOP difluprednate 0.05 % Drops 1 drp OPR BID Rx Instructions: KODar Incruse Ellipta 62.5 mcg/actuation Blister With Device 1 inh INHALATION DAILY Robitussin Max Stren 100/5ml 15 ml PO QID PRN (Reason: .cough) Vitamin E Lotion 1 applic topical TID Rx Instructions: KOP rifabutin 150 mg Capsule 300 mg PO DAILY amikacin 250 mg/mL Solution 1,200 mg IV 3XWK Rx Instructions: Owpvts-Ehxtqkcgc-Qwafgo enoxaparin 30 mg/0.3 mL Solution 30 mg SUBCUT 1XD pantoprazole 40 mg Tablet,Delayed Release (Dr/Ec) 40 mg PO DAILY pyridoxine (vitamin B6) 50 mg Tablet 50 mg PO DAILY folic acid 1 mg Tablet 1 mg PO DAILY Tivicay 50 mg Tablet 50 mg PO BID Sivextro 200 mg Tablet 200 mg PO DAILY Discontinued emtricitabine-tenofovir (TDF) [Truvada] 200-300 mg Tablet 1 tab PO DAILY Discharge Orders: Discharge Order (Routine); Ordered 05/08/24 Ordered By: Timur Fierro/Other Patient Handouts: Boosting Your Mental Health, Understanding HIV and AIDS, Immunocompromised Patients Dc, ED Ascites Admission Data Admit Date/Time: 04/27/24 00:55 Attending Provider: Timur Carter Admit Provider: Ru Durand Primary Care Provider: Tonya ORTIZ Other Providers: Antonio Ramirez; Tiny Molina Other Interventions: Discharge Summary Assessment (RN) Last Done: 05/08/24 14:20
--- NOTE | 2024-05-08 10:11 | Nephrology Progress Note ---
Date of Service May 08, 2024 Assessment & Plan (1) Acute kidney injury: Plan: Recent KEERTHI attributed to ATN secondary to intravascular volume depletion related to ascites, diarrhea and poor PO intake. Clinical presentation is failure to thrive related to salt and water losses from ongoing diarrhea and recurrent ascites. Creatinine stable without IVF. Several medications may affect kidney function but there are no concerns with dosing. Margarito remains on Bactrim and dolutegravir which both may raise serum creatinine. Close monitoring of kidney function will be required moving forward. This can be managed as an outpatient. Appropriate nutrition and PO fluids will need to be encouraged. (2) Metabolic acidosis: Plan: Continue oral NaHCO3 replacement. (3) Cachexia associated with AIDS: Plan: Elevated creatinine may be associated with Bactrim and dolutegravir. (4) Severe protein-calorie malnutrition: (5) Multifocal pneumonia: Plan: Thankfully amikacin trough levels have been acceptable. Nephrotoxicity from amikacin is possible. Close monitoring required. (6) Anemia: (7) Mycobacterium avium complex: (8) Ascites: Plan: Suggest continued administration of SPA with drainage of IV, as able. Admission and Anticipated Discharge Date Admission Date: April 27, 2024 Subjective No acute events overnight. Margarito feels reasonably well this AM. Increased abdominal distention and discomfort. Appetite fair. Anticipated discharge today. Review of Systems Review of Systems: All systems reviewed & are unremarkable except as noted in HPI & below Physical Exam Constitutional: + cachectic and + frail appearing; no ac krish distress Eyes: + anicteric sclerae ENMT: Mouth: oral mucous membranes not dry Neck: normal visual inspection and trachea midline Respiratory: normal respiratory effort; no respiratory distress Auscultation: lungs clear to auscultation bilaterally Cardiovascular: Rate/Rhythm: regular rate and regular rhythm Heart Sounds: normal S1 and normal S2 Extremities: + pedal edema; no edema Gastrointestinal (Abdomen): Inspection/Auscultation: + abdomen distended Percussion/Palpation: + ascites and + dullness to percussion; abdomen nontender Musculoskeletal: Extremities: no cyanosis Skin: no rashes, warm and dry Neurologic: Motor/Sensory: no tremor and no asterixis Psychiatric: Orientation: alert and oriented x 3 Results & Data Vital Signs (Past 12 Hours) Vital Signs Temp Pulse Pulse Resp BP BP Pulse Ox 05/08/24 08:05 36.7 C 98 H 18 112/82 100 10/24/24 07:16 105 H 05/08/24 03:18 36.7 C 109 H 18 101/68 98 05/08/24 00:07 36.8 C 99 H 18 105/74 100 O2 Del Method 05/08/24 08:05 Room Air 05/08/24 07:16 05/08/24 03:18 Room Air 05/08/24 00:07 Room Air Laboratory Results Laboratory Results - last 24 hr 05/07/24 05/08/24 10:50 06:55 Sodium 138 Potassium 3.6 Chloride 110 H Carbon Dioxide 20 L Anion Gap 8 BUN 20 Creatinine 1.66 H Est Cr Clr Drug Dosing 44.7 eGFR 52.78 BUN/Creatinine Ratio 12.0 Glucose 96 Calcium 7.8 L Random Amikacin Pending PG Care Time/CCT Total # of Minutes Spent Total Time Spent with Patient: Total time spent is greater than 50% in coordination of care (as documented) at patient's floor/unit and/or counseling patient: Coding Level of Care Code 47087 SUB INP/OBS CARE 3/50MIN Diagnoses Acute kidney injury N17.9 Metabolic acidosis E87.20 Cachexia associated with AIDS B20; E88.A Severe protein-calorie malnutrition E43 Multifocal pneumonia J18.9 Anemia D64.9 Mycobacterium avium complex A31.0 Ascites R18.0 Ascites type: malignant (8) Ascites Ascites type: malignant Qualified Code(s): R18.0 - Malignant ascites
[2024-05-08 14:23] VITALS: BP 101/68; PULSE 118
== END 2024-05-08 16:13 | DRG 974 ==
LOC: ED 22:18 → SUATTDRO 04-27 00:55 → 2S 04-27 00:55

== ENCOUNTER 2024-05-28 08:07 | Observation (INO) ==
--- NOTE | 2024-05-28 08:30 | Emergency Department Note ---
Impression & Plan Acute hypotension, HIV (human immunodeficiency virus infection), Weakness ED Provider Note NAME: HAZEL [id number] FLUSHAMAR AGE: 43 SEX: M : 1980 ARRIVES VIA: Walk-In INFORMANT: Patient ED PROVIDER(S): Adolfo Friedman DO CHIEF COMPLAINT: Weakness HPI: Patient is a 43-year-old male who presents to the ER from the alf for abnormal labs. Patient notes that he does have a history of HIV and is undetectable currently undergoing treatment for MAC. He had lab works done at the alf and he is having worsening renal failure and consequently was sent in. He denies any headache or change in vision. No chest pain or shortness of breath. No belly pain. No nausea, vomiting, or diarrhea. No dysuria, urgency, or frequency. No other exacerbating or remitting factors. ADDITIONAL HISTORY OBTAINED: Per HPI Chronic Medical/Social Conditions Affecting Care: Per HPI PAST MEDICAL HISTORY:See Below PAST SURGICAL HISTORY:See Below FAMILY HISTORY:See Below SOCIAL HISTORY:See Below HOME MEDICATIONS:See Below ALLERGIES:See Below VITALS:See Below PHYSICAL EXAMINATION: GENERAL: Sitting up in bed, alert, well appearing, well nourished, no distress, non-toxic EYE EXAM: normal conjunctiva. PERRL and EOM's grossly intact. OROPHARYNX: mucous membranes are moist NECK: supple, no nuchal rigidity, no adenopathy, non-tender LUNGS: Clear to auscultation. Normal chest wall mechanics HEART: no murmurs, S1 normal and S2 normal ABDOMEN: abdomen soft, non-tender, normo-active bowel sounds, no masses, no rebound or guarding. BACK: Back is symmetrical on inspection and there is no deformity, no midline tenderness, no CVA tenderness. SKIN: no rashes and no bruising UPPER EXTREMITIES: upper extremities are grossly normal. LOWER EXTREMITIES: No pitting edema. NEURO EXAM: Normal sensorium, cranial nerves II-XII grossly intact, normal speech, no gross weakness of arms, no gross weakness of legs. MEDICAL DECISION MAKING: Patient is a 43-year-old prisoner who presents to the ER with guards present bedside. IV was established and blood work was obtained. Labs show leukocytosis of 14,000. Mild anemia at 11. VBG with a pH of 7.33. BMP with creatinine at 2.0 slightly up from baseline of 1.6-1.8. LFTs and troponin were negative. Pro-Supa at 1.5. COVID-negative. Discussed the case with hospitalist after talking with the alf doctor who wanted patient admitted for nutrition consult and evaluation by infectious disease. Patient was admitted by the hospitalist for further evaluation management treatment. Patient was given IV fluids while in the ER. Consults/Care Managements Discussions: Per MDM Triage Nursing notes reviewed. Limited review of prior medical records performed Vital Signs: reviewed and remarkable for hypotension Differential diagnosis: Infection, dehydration, metabolic abnormality, hypo/hyperglycemia, electrolyte disturbance, anemia, hypoxia, cardiac sources, intracerebral event, toxicologic, neurologic, as well as other pathologies. ER treatment provided: See below Diagnostics interpreted by me include EKG and cardiac monitoring as listed below: -Cardiac Monitoring: An order was placed for continuous cardiac monitoring. The monitor shows a rate of 80 with sinus rhythm. -ECG: none -Laboratory studies:Interpreted by me as stated above in MDM and shown below. Imaging studies: Xrays: As interpreted by me: Portable AP upright 1 view of the chest shows no significant change from previous with subtle opacities at the bases CTs show: none Procedures:none Critical Care: None Past Med/Surg History Problem List (Updated 05/28/24 @ 13:09 by Adolfo Friedman DO) Weakness (Acute) Acute hypotension (Acute) Drug level above therapeutic range Metabolic acidosis Hypokalemia Acute kidney injury Bronchiectasis Multifocal pneumonia Acute on chronic respiratory failure with hypoxia (Acute) Severe protein-calorie malnutrition Intraabdominal mass (Acute) Malignant ascites (Acute) Anaplasmosis Cachexia associated with AIDS Enterovirus infection (Acute) Infection due to parainfluenza virus 3 (Acute) Anemia (Acute) Hypotension (Acute) Emphysema lung Mycobacterium avium complex (Acute) Enteritis Abdominal pain (Acute) Anemia (Acute) Acute hyponatremia (Acute) Skin lesion of chest wall Dyspnea Irritable bowel syndrome Vision loss of left eye Abnormal computerized tomography of biliary tract LVH (left ventricular hypertrophy) Abnormal CT scan, chest Sepsis (Acute) Cough (Acute) Anemia (Acute) Hypotension (Acute) HIV (human immunodeficiency virus infection) (Acute) Medical History Diarrhea Hyperlipemia Iron deficiency anemia Vitamin D deficiency Social History Smoking Status: Never smoker Second Hand Exposure: No; Do You Dip or Chew Tobacco: No; Hx Alcohol Use: No Hx Substance Use: No Preferred Language: [place] Communication Ability: Effective Health Aid Required: No Beliefs That Will Affect Care: Cultural Cultural Beliefs: does not eat pork Current Living Situation: Other Current Living Situation Comment: [facility] Feels Safe at Home: Yes Assistive Devices: Walker Allergies Allergies Allergy/AdvReac Type Severity Reaction Status Date / Time No Known Allergies Allergy Verified 04/03/24 11:16 Home Meds Home Medications Medication Instructions Recorded Confirmed A&D Ointment 1 applic topical DAILY 02/01/24 05/28/24 Lactobacillus acidophilus 0 mg PO BID 02/01/24 05/28/24 (Acidophilus capsule) Robitussin Max Stren 100/5ml 15 ml PO QID PRN .cough 02/01/24 05/28/24 Vitamin E Lotion 1 applic topical TID 02/01/24 05/28/24 acetaminophen 325 mg tablet 650 mg PO QID PRN Pain 02/01/24 05/28/24 (Tylenol) brimonidine 0.15 % eye drops 1 drp OPL BID 02/01/24 05/28/24 cholecalciferol (vitamin D3) 25 25 mcg PO DAILY 02/01/24 05/28/24 mcg (1,000 unit) tablet (Vitamin D3) cholestyramine (with sugar) 4 gram 4 g PO BID 02/01/24 05/28/24 powder for susp in a packet (Questran) ergocalciferol (vitamin D2) 1,250 1,250 mcg PO .WEEKLY 02/01/24 05/28/24 mcg (50,000 unit) capsule (Vitamin D2) ethambutol 100 mg tablet 100 mg PO DAILY 02/01/24 05/28/24 ethambutol 400 mg tablet 900 mg PO DAILY 02/01/24 05/28/24 loperamide 2 mg tablet (Imodium 2 mg PO TID PRN Diarrhea 02/01/24 05/28/24 A-D) midodrine 5 mg tablet 5 mg PO TID 02/01/24 05/28/24 multivitamin 1 tab PO DAILY 02/01/24 05/28/24 sulfamethoxazole 800 1 tab PO DAILY 02/01/24 05/28/24 mg-trimethoprim 160 mg tablet (Bactrim DS) umeclidinium 62.5 mcg/actuation 1 inh inhalation DAILY 02/01/24 05/28/24 blister powder for inhalation (Incruse Ellipta) amikacin 250 mg/mL injection 600 mg IV 3XWK 04/27/24 05/28/24 solution dolutegravir 50 mg tablet (Tivicay) 50 mg PO BID 04/27/24 05/28/24 folic acid 1 mg tablet 1 mg PO DAILY 04/27/24 05/28/24 pantoprazole 40 mg tablet,delayed 40 mg PO DAILY 04/27/24 05/28/24 release (Protonix) pyridoxine (vitamin B6) 50 mg 50 mg PO DAILY 04/27/24 05/28/24 tablet rifabutin 150 mg capsule 300 mg PO DAILY 04/27/24 05/28/24 (Mycobutin) tedizolid 200 mg tablet (Sivextro) 200 mg PO DAILY 04/27/24 05/28/24 Previous Rx's Medication Instructions Recorded emtricitabine 200 mg-tenofovir 1 tab PO Q48H #14 tabs 05/08/24 disoproxil fumarate 300 mg tablet (Truvada) Results & Data (ED) Vital Signs Vital Signs - 24 hr 05/28/24 08:10 05/28/24 08:44 05/28/24 08:44 Temperature 36.4 C L Temperature Source Temporal Artery Scan Pulse Rate 79 54 L Pulse Rate [Right Finger] 55 L Respiratory Rate 20 14 Respiratory Effort / Characteristics Non-Labored Spontaneous Non-Labored Spontaneous Respiratory Depth Normal Normal Respiratory Pattern Regular Regular Blood Pressure 88/70 L Blood Pressure [Right Arm] 100/73 Blood Pressure Mean 76 Blood Pressure Mean [Right Arm] 82 Pulse Oximetry 100 Oxygen Delivery Method Room Air Room Air Room Air Sepsis Recent Fever Within 48 Hours No Sepsis New/Unexplained Change in Mental Status N/A Sepsis Action Taken by Nursing No Action Required 05/28/24 09:23 05/28/24 11:11 05/28/24 13:02 Temperature Temperature Source Pulse Rate 49 L Pulse Rate [Right Finger] 54 L 54 L Respiratory Rate 16 12 Respiratory Effort / Characteristics Non-Labored Spontaneous Non-Labored Spontaneous Respiratory Depth Normal Normal Respiratory Pattern Regular Regular Blood Pressure Blood Pressure [Right Arm] 99/74 L 102/70 Blood Pressure Mean Blood Pressure Mean [Right Arm] 82 80 Pulse Oximetry 100 Oxygen Delivery Method Room Air Aerosol Mask Room Air Sepsis Recent Fever Within 48 Hours Sepsis New/Unexplained Change in Mental Status Sepsis Action Taken by Nursing Laboratory Data 05/28/24 08:39 05/28/24 08:39 Lab Results 05/28/24 05/28/24 05/28/24 Range/Units 08:39 10:23 12:00 WBC 14.78 H (4.8-10.8) K/ul RBC 4.01 L (4.70-6.10) M/uL Hgb 11.0 L (14.0-18.0) g/dl Hct 34.5 L (42.0-52.0) % MCV 86.0 (80.0-100.0) fL MCH 27.4 (25.0-34.0) pg MCHC 31.9 L (32.0-36.0) g/dL RDW Std Deviation 63.5 H (36.4-46.3) fL RDW Coeff of Brody 20.3 H (11.5-14.5) % Plt Count 232 (130-400) K/uL MPV 9.4 (9.4-12.4) fL Immature Gran % (Auto) 0.9 % Neut % (Auto) 83.9 % Lymph % (Auto) 7.3 % [place] % (Auto) 6.9 % Eos % (Auto) 0.6 % Baso % (Auto) 0.4 % Neut # (Auto) 12.40 H (1.40-6.50) K/uL Lymph # (Auto) 1.08 L (1.20-3.40) K/uL [place] # (Auto) 1.02 H (0.11-0.59) K/uL Eos # (Auto) 0.09 (0.00-0.50) K/uL Baso # (Auto) 0.06 (0.00-0.20) K/uL Immature Gran # (Auto) 0.13 (0.01-0.20) K/uL Toxic Vacuolation 3+ Polychromasia 1+ Anisocytosis Present VBG pH 7.33 L (7.36-7.41) VBG pCO2 40 (38-50) mmHg VBG pO2 37 mmHg VBG HCO3 21 mmol/L VBG O2 Saturation 66.1 % VBG Base Excess -4.5 mEq/L Sodium 134 L (136-145) mmol/L Potassium 3.9 (3.5-5.1) mmol/L Chloride 107 (98-107) mmol/L Carbon Dioxide 21 (21-32) mmol/L Anion Gap 6 (3-11) BUN 25 H (6-23) mg/dl Creatinine 2.00 H (0.6-1.4) mg/dl Est Cr Clr Drug Dosing Not Reportable eGFR 42.21 BUN/Creatinine Ratio 12.5 (10-20) Glucose 84 (70-99(Fasting)) mg/dl Calcium 8.2 L (8.6-10.3) mg/dl Total Bilirubin 0.2 (0.2-1.0) mg/dl AST 18 (13-39) U/L ALT 13 (7-52) U/L Alkaline Phosphatase 114 H (34-104) U/L Troponin I High Sens 4.5 (0-20) pg/ml Total Protein 6.0 (6.0-8.3) gm/dl Albumin 2.5 L (3.4-5.0) gm/dl Globulin 3.5 (2.5-4.0) gm/dl Albumin/Globulin Ratio 0.7 L (0.9-2) Lipase 65 (11-82) U/L Procalcitonin 1.57 H (0-0.5) ng/ml SARS-CoV-2, RNA, NAAT NEGATIVE (NEGATIVE) Administered Medications Discontinued Medications Sodium Chloride (Nss) 1,000 mls @ 999 mls/hr IV .Q1H1M ONE Stop: 05/28/24 09:26 Last Admin: 05/28/24 08:49 Dose: 999 mls/hr Documented By: NRB Imaging Data Radiologist's Impression: Chest X-Ray 05/28/24 10:01 XR chest 1V portable CLINICAL HISTORY: weakness COMPARISON STUDY: Chest radiograph April 26, 2024. Chest CT April 27, 2024. FINDINGS: Right internal jugular [id number] is in place. There is no pneumothorax or pleural effusion. Bilateral lower lung densities are unchanged. No consolidation to suggest pneumonia. There is underlying emphysema. Cardiomediastinal silhouette is stable. IMPRESSION: 1. No significant change in appearance of chest. Stable lower lung densities which favor atelectasis or scarring however a chronic infectious process could appear similar. Continued imaging follow-up is recommended. 2. Emphysema. ACT 112: Negative or not required by law. Electronically signed by: Efrain Stevens M.D. 05/28/2024 10:31 AM Discharge Plan Visit Data Chief Complaint: Abnormal Labs/Diagnostic Testing Stated Complaint: ABN LABS/LOW CALCIUM, KIDNEY PROBS ED Provider: Adolfo Friedman Discharge Problem: Acute hypotension, HIV (human immunodeficiency virus infection), Weakness Forms Stand Alone Forms: My [facility] Prescriptions Prescriptions: No Action A&D Ointment 1 applic topical DAILY Rx Instructions: KOP multivitamin Tablet 1 tab PO DAILY acetaminophen [Tylenol] 325 mg Tablet 650 mg PO QID PRN (Reason: Pain) loperamide [Imodium A-D] 2 mg Tablet 2 mg PO TID PRN (Reason: Diarrhea) midodrine 5 mg Tablet 5 mg PO TID Rx Instructions: Take 2 tablets- Hold for SBP <100, do not give last dose of day after 6PM or within 4 hrs of bedtime sulfamethoxazole-trimethoprim [Bactrim DS] 800-160 mg Tablet 1 tab PO DAILY Rx Instructions: End on 01/19/2025 ethambutol 400 mg Tablet 900 mg PO DAILY Rx Instructions: Take with 100 mg to = 900 mg ethambutol 100 mg Tablet 100 mg PO DAILY Rx Instructions: Take with two 400 mg tabs = 900 mg ergocalciferol (vitamin D2) [Vitamin D2] 1,250 mcg (50,000 unit) Capsule 1,250 mcg PO .WEEKLY Rx Instructions: FRI Acidophilus Capsule 0 mg PO BID brimonidine 0.15 % Drops 1 drp OPL BID Rx Instructions: KOP cholestyramine (with sugar) [Questran] 4 gram Powder In Packet 4 g PO BID cholecalciferol (vitamin D3) [Vitamin D3] 25 mcg (1,000 unit) Tablet 25 mcg PO DAILY Incruse Ellipta 62.5 mcg/actuation Blister With Device 1 inh INHALATION DAILY Robitussin Max Stren 100/5ml 15 ml PO QID PRN (Reason: .cough) Vitamin E Lotion 1 applic topical TID Rx Instructions: KOP rifabutin [Mycobutin] 150 mg Capsule 300 mg PO DAILY amikacin 250 mg/mL Solution 600 mg IV 3XWK Rx Instructions: [id number] pantoprazole [Protonix] 40 mg Tablet,Delayed Release (Dr/Ec) 40 mg PO DAILY pyridoxine (vitamin B6) 50 mg Tablet 50 mg PO DAILY folic acid 1 mg Tablet 1 mg PO DAILY Tivicay 50 mg Tablet 50 mg PO BID Sivextro 200 mg Tablet 200 mg PO DAILY emtricitabine-tenofovir (TDF) [Truvada] 200-300 mg Tablet 1 tab PO Q48H Qty: 14 0RF Rx Instructions: Until CrCLNC >50 every 2 days Referrals Referrals: Tonya ORTIZ [Primary Care Provider] - Discharge Problem: HIV (human immunodeficiency virus infection) Qualifiers: HIV symptom status: unspecified Qualified Code(s): Z21 - Asymptomatic human immunodeficiency virus [HIV] infection status
[2024-05-28 08:47] LABS: Base Excess VBG -4.5 mEq/L; HCO3 VBG 21 mmol/L; Oxygen Saturation VBG 66.1 %; PCO2 VBG 40 mmHg (38-50); PO2 VBG 37 mmHg; pH VBG 7.33 (7.36-7.41)
[2024-05-28] MEDS: SODIUM CHLORIDE 0.9% 1,000 ML IV ONE (08:49)
[2024-05-28 08:58] LABS: Basophils # (auto) 0.06 K/uL (0.00-0.20); Basophils % (auto) 0.4 %; Eosinophils # (auto) 0.09 K/uL (0.00-0.50); Eosinophils % (auto) 0.6 %; Hematocrit (blood only) 34.5 % (42.0-52.0); Immature Granulocytes # (auto) 0.13 K/uL (0.01-0.20); Immature Granulocytes % (auto) 0.9 %; Lymphocytes # (auto) 1.08 K/uL (1.20-3.40); Lymphocytes % (auto) 7.3 %; Mean Corpuscular Hemoglobin 27.4 pg (25.0-34.0); Mean Corpuscular Hgb Conc 31.9 g/dL (32.0-36.0); Mean Platelet Volume 9.4 fL (9.4-12.4); Monocytes # (auto) 1.02 K/uL (0.11-0.59); Monocytes % (auto) 6.9 %; Neutrophils % (auto) 83.9 %; Platelet Count 232 K/uL (130-400); RDW Coefficient of Variation 20.3 % (11.5-14.5); RDW Standard Deviation 63.5 fL (36.4-46.3); Red Blood Count 4.01 M/uL (4.70-6.10); White Blood Count 14.78 K/ul (4.8-10.8)
[2024-05-28 09:08] LABS: Alanine Aminotransferase 13 U/L (7-52); Albumin Globulin Ratio 0.7 (0.9-2); Albumin Level 2.5 gm/dl (3.4-5.0); Alkaline Phosphatase 114 U/L (34-104); Anion Gap 6 (3-11); Aspartate Aminotransferase 18 U/L (13-39); BUN Creatinine Ratio 12.5 (10-20); Bilirubin,Total 0.2 mg/dl (0.2-1.0); Blood Urea Nitrogen 25 mg/dl (6-23); Calcium 8.2 mg/dl (8.6-10.3); Carbon Dioxide 21 mmol/L (21-32); Chloride 107 mmol/L (98-107); Globulin 3.5 gm/dl (2.5-4.0); Glucose 84 mg/dl (70-99(Fasting)); Lipase 65 U/L (11-82); Potassium 3.9 mmol/L (3.5-5.1); Sodium 134 mmol/L (136-145)
[2024-05-28 09:24] LABS: Anisocytosis Present; Polychromasia 1+; Toxic Vacuolation 3+
--- NOTE | 2024-05-28 10:32 | XRay Report ---
XR chest 1V portable CLINICAL HISTORY: weakness COMPARISON STUDY: Chest radiograph April 26, 2024. Chest CT April 27, 2024. FINDINGS: Right internal jugular [id number] is in place. There is no pneumothorax or pleural effus ion. Bilateral lower lung densities are unchanged. No consolidation to suggest pneumonia. There is un derlying emphysema. Cardiomediastinal silhouette is stable. IMPRESSION: 1. No significant change in appearance of chest. Stable lower lung densities which favor atelectasis or scarring however a chronic infectious process could appear similar. Continued imaging follow-up is recommended. 2. Emphysema. ACT 112: Negative or not required by law. Electronically signed by: Efrain Stevens M.D. 05/28/2024 10:31 AM
--- NOTE | 2024-05-28 11:45 | History & Physical Report ---
Date of Service May 28, 2024 Assessment & Plan (1) Drug level above therapeutic range: Plan: Amikacin levels elevated Per Dr. Ascencion Powers at [facility] - Weekly levels per Dr. Powers who also manages dosing - Stating Amikacin level on 05/23 was > 50; pending repeat levels - Received dose of 600 on 05/23; on HOLD since - Continue to HOLD (2) Acute kidney injury: Plan: KEERTHI - ? Post renal versus prerenal - Cr baseline 1.6-1.8; on 05/27 was 2.25; found to be 2.0 on admission - BUN 25; BUN:Cr ratio 12.5 - UA pending - Given 1L NSS in ED - BMP a.m. - Continue to promote oral hydration (3) Severe protein-calorie malnutrition: Plan: Cachexia on exam - Cachexia associated with AIDS - Dietary consult placed (4) Mycobacterium avium complex: Plan: Initial diagnosis 11/2021 diagnosed at [facility] via blood cultures - Completed Ethambutol and azithromycin x 6 months (ended July 2022) - 02/21/2024- EGD and biopsy peripancreatic mass completed; AFB stain 4+ AFB, culture for MAC, ascites fluid PCR positive for Estrella albicans + MAC - Completed 4 drug regimen x 2 weeks for fungal ascites - Tedezolid, Rifabutin, Ethambutol, and Amicakin - Pending Amicakin levels (see #1) (5) HIV (human immunodeficiency virus infection): Plan: Dx HIV 2013 - Biktarvy (started 2021), Tedezolid, Rifabutin, Ethambutol and Amikacin, Bactrim DS - Central line in left chest x 1 to 1.5 months for amikacin - Last CD4 12/04 was 53; ? obtained more recent level from senior care - Obtain CD4 if no recent levels (6) Emphysema lung: Plan: No current symptoms of SOB, cough - Incruse at home - CXR: Emphysema, no significant changes in appearance of chest, stable lower lung densities which favor atelectasis or scarring however a chronic infectious process could appear similar - No h/o smoking; mother was a smoker and pt had second hand exposure - A1A level (04/28) 254 (7) Intraabdominal mass: Plan: Recurrent ascites, with his tunneled ascites catheter in place; patient drains every another day normally - CTAP (02/01/2024) showed severe extrinsic compression of the main vein due to ill-defined 3.7 cm soft tissue mass and multifocal retroperitoneal and mesenteric soft tissues. - Peritoneal fluid (01/31) grew 3+ AFB on smear, culture grew MAC (Moxifloxacin resistant, clarithromycin sensitive, amikacin IV resistant, linezolid resistant) - Biopsy negative for malignancy/lymphoma - Pending peritoneal fluid cultures - 1L drained from catheter 05/28- brought to lab Plan ADMISSION PER REQUEST OF DR. POWERS @ [facility] Dispo: Admit VTE prophylaxis: SCDs Code: Full Admission and Anticipated Discharge Date Admission Date: 05/28/2024 History of Present Illness Chief Complaint: Abnormal labs Primary Care Provider: [facility] Patient is a 43-year-old male prisoner from [facility] presenting to ED for "abnormal labs." History of HIV, undetectable currently, treatment for MAC currently. Patient is a 43-year-old male PMHx of HIV, MAC, intra-abdominal mass with ascites, IBS, and severe protein calorie nutrition presenting from senior care for abnormal labs. Patient states that he was told that his kidney function was poor and that his white blood cells were elevated, this is why he was sent to the ED. Patient is having no abdominal pain or additional symptoms. States that he would drain ascites approximately every other day. Being treated for MAC. Please see Dr. García's attestation for adjustments/additions to treatment plan. Allergies Allergy/AdvReac Type Severity Reaction Status Date / Time No Known Allergies Allergy Verified 04/03/24 11:16 Home Medications Medication Instructions Recorded Confirmed Type A&D Ointment 1 applic topical DAILY 02/01/24 05/28/24 History Lactobacillus acidophilus 0 mg PO BID 02/01/24 05/28/24 History (Acidophilus capsule) Robitussin Max Stren 100/5ml 15 ml PO QID PRN .cough 02/01/24 05/28/24 History Vitamin E Lotion 1 applic topical TID 02/01/24 05/28/24 History acetaminophen 325 mg tablet 650 mg PO QID PRN Pain 02/01/24 05/28/24 History (Tylenol) brimonidine 0.15 % eye drops 1 drp OPL BID 02/01/24 05/28/24 History cholecalciferol (vitamin D3) 25 25 mcg PO DAILY 02/01/24 05/28/24 History mcg (1,000 unit) tablet (Vitamin D3) cholestyramine (with sugar) 4 gram 4 g PO BID 02/01/24 05/28/24 History powder for susp in a packet (Questran) ergocalciferol (vitamin D2) 1,250 1,250 mcg PO .WEEKLY 02/01/24 05/28/24 History mcg (50,000 unit) capsule (Vitamin D2) ethambutol 100 mg tablet 100 mg PO DAILY 02/01/24 05/28/24 History ethambutol 400 mg tablet 900 mg PO DAILY 02/01/24 05/28/24 History loperamide 2 mg tablet (Imodium 2 mg PO TID PRN Diarrhea 02/01/24 05/28/24 History A-D) midodrine 5 mg tablet 5 mg PO TID 02/01/24 05/28/24 History multivitamin 1 tab PO DAILY 02/01/24 05/28/24 History sulfamethoxazole 800 1 tab PO DAILY 02/01/24 05/28/24 History mg-trimethoprim 160 mg tablet (Bactrim DS) umeclidinium 62.5 mcg/actuation 1 inh inhalation DAILY 02/01/24 05/28/24 History blister powder for inhalation (Incruse Ellipta) amikacin 250 mg/mL injection 600 mg IV 3XWK 04/27/24 05/28/24 History solution dolutegravir 50 mg tablet (Tivicay) 50 mg PO BID 04/27/24 05/28/24 History folic acid 1 mg tablet 1 mg PO DAILY 04/27/24 05/28/24 History pantoprazole 40 mg tablet,delayed 40 mg PO DAILY 04/27/24 05/28/24 History release (Protonix) pyridoxine (vitamin B6) 50 mg 50 mg PO DAILY 04/27/24 05/28/24 History tablet rifabutin 150 mg capsule 300 mg PO DAILY 04/27/24 05/28/24 History (Mycobutin) tedizolid 200 mg tablet (Sivextro) 200 mg PO DAILY 04/27/24 05/28/24 History emtricitabine 200 mg-tenofovir 1 tab PO Q48H #14 tabs 05/08/24 05/28/24 Rx disoproxil fumarate 300 mg tablet (Truvada) Past Med/Surg History Problem List (Updated 05/28/24 @ 13:09 by Adolfo Friedman DO) Weakness (Acute) Acute hypotension (Acute) Drug level above therapeutic range Metabolic acidosis Hypokalemia Acute kidney injury Bronchiectasis Multifocal pneumonia Acute on chronic respiratory failure with hypoxia (Acute) Severe protein-calorie malnutrition Intraabdominal mass (Acute) Malignant ascites (Acute) Anaplasmosis Cachexia associated with AIDS Enterovirus infection (Acute) Infection due to parainfluenza virus 3 (Acute) Anemia (Acute) Hypotension (Acute) Emphysema lung Mycobacterium avium complex (Acute) Enteritis Abdominal pain (Acute) Anemia (Acute) Acute hyponatremia (Acute) Skin lesion of chest wall Dyspnea Irritable bowel syndrome Vision loss of left eye Abnormal computerized tomography of biliary tract LVH (left ventricular hypertrophy) Abnormal CT scan, chest Sepsis (Acute) Cough (Acute) Anemia (Acute) Hypotension (Acute) HIV (human immunodeficiency virus infection) (Acute) Medical History Diarrhea Hyperlipemia Iron deficiency anemia Vitamin D deficiency Social History Smoking Status: Unknown if ever smoked Second Hand Exposure: No; Do You Dip or Chew Tobacco: No; Hx Alcohol Use: No Hx Substance Use: Yes Preferred Language: Nepali Communication Ability: Effective Rouge Sifter Required: No Beliefs That Will Affect Care: None Current Living Situation: Other Current Living Situation Comment: [facility] Other Information That Helps Us Care for You: No Feels Safe at Home: Yes Assistive Devices: Walker and Wheelchair Assistive Devices Comment: bedside commode Review of Systems Review of Systems: All systems reviewed & are unremarkable except as noted in Subjective Physical Exam Physical Exam: General: No acute distress, cachectic Skin: Warm and dry Head: Normocephalic, atraumatic Eyes: PERRL, conjunctivae clear, sclera non-icteric; EOM intact ENT: External ear and ear canal without swelling; nose atraumatic; ok dentition Neck: Supple, no LAD; no JVD Cardio: Bradycardic, normal rhythm, no M/G/R, S1 and S2 normal; port present R side Resp: Normal respiratory effort; Lungs CTA in all lobes bilaterally, no wheezes, rales, or rhonchi Abdomen: Soft, symmetric, nontender; drainage catheter in place R abdomen MSK: Pulses palpable and equal; no edema. Neuro: Awake, alert Psych: Appropriate mood 2 guards present during time of visit Results & Data Results & Data Vital Signs (Past 12 Hours) Vital Signs Temp Pulse Pulse Resp BP BP Pulse Ox 05/28/24 11:11 54 L 16 99/74 L 100 05/28/24 09:23 49 L 05/28/24 08:44 54 L 05/28/24 08:44 55 L 14 100/73 05/28/24 08:10 36.4 C L 79 20 88/70 L 100 O2 Del Method 05/28/24 11:11 Room Air, Aerosol Mask 05/28/24 09:23 05/28/24 08:44 Room Air 05/28/24 08:44 Room Air 05/28/24 08:10 Room Air Laboratory Results 05/28/24 10:23 Aerobic Blood Culture - Pending Blood Anaerobic Blood Culture - Pending 05/28/24 05/28/24 10:23 08:39 WBC 14.78 H RBC 4.01 L Hgb 11.0 L Hct 34.5 L MCV 86.0 MCH 27.4 MCHC 31.9 L RDW Std Deviation 63.5 H RDW Coeff of Brody 20.3 H Plt Count 232 MPV 9.4 Immature Gran % (Auto) 0.9 Neut % (Auto) 83.9 Lymph % (Auto) 7.3 Josephine % (Auto) 6.9 Eos % (Auto) 0.6 Baso % (Auto) 0.4 Neut # (Auto) 12.40 H Lymph # (Auto) 1.08 L Josephine # (Auto) 1.02 H Eos # (Auto) 0.09 Baso # (Auto) 0.06 Immature Gran # (Auto) 0.13 Toxic Vacuolation 3+ Polychromasia 1+ Anisocytosis Present VBG pH 7.33 L VBG pCO2 40 VBG pO2 37 VBG HCO3 21 VBG O2 Saturation 66.1 VBG Base Excess -4.5 Sodium 134 L Potassium 3.9 Chloride 107 Carbon Dioxide 21 Anion Gap 6 BUN 25 H Creatinine 2.00 H Est Cr Clr Drug Dosing Not Reportable eGFR 42.21 BUN/Creatinine Ratio 12.5 Glucose 84 Calcium 8.2 L Total Bilirubin 0.2 AST 18 ALT 13 Alkaline Phosphatase 114 H Troponin I High Sens 4.5 Total Protein 6.0 Albumin 2.5 L Globulin 3.5 Albumin/Globulin Ratio 0.7 L Lipase 65 Procalcitonin 1.57 H Diagnostic Findings Chest X-Ray 05/28/24 10:01 XR chest 1V portable CLINICAL HISTORY: weakness COMPARISON STUDY: Chest radiograph April 26, 2024. Chest CT April 27, 2024. FINDINGS: Right internal jugular [id number]-[id number] is in place. There is no pneumothorax or pleural effusion. Bilateral lower lung densities are unchanged. No consolidation to suggest pneumonia. There is underlying emphysema. Cardiomediastinal silhouette is stable. IMPRESSION: 1. No significant change in appearance of chest. Stable lower lung densities which favor atelectasis or scarring however a chronic infectious process could appear similar. Continued imaging follow-up is recommended. 2. Emphysema. ACT 112: Negative or not required by law. Electronically signed by: Efrain Stevens M.D. 05/28/2024 10:31 AM Code Status & VTE Plan VTE Prophylaxis Plan VTE Prophylaxis will be ordered: Yes Supervising Physician Co-Signing Physician Notes I personally saw and examined the patient. I independently reviewed the labs, EKG, imaging, problem list, medication list, past medical history and family history. I verified all tripathi points and agree with Natty Delgado PA-C with the following exceptions and/or additions: 43 year old male presents to the ER from [facility] with abnormal labs O/E Cachectic appearing, HS RRR, no murmurs, Chest CTAB, A/P Leucocytosis - requested quintana culture from senior care physician. ascites pleurx catheter sample taken 1L taken off. Severe protein-calorie malnutrition - dietary consult Disseminated MAC - holding amikacin but continue ethambutol and azithromycin PG Care Time/CCT Total # of Minutes Spent Total Time Spent with Patient: Total time spent is greater than 50% in coordination of care (as documented) at patient's floor/unit and/or counseling patient: Coding Level of Care Code 46983 INT INP/OBS CARE 3/75MIN Diagnoses Drug level above therapeutic range R89.2 Acute kidney injury N17.9 Severe protein-calorie malnutrition E43 Mycobacterium avium complex A31.0 HIV (human immunodeficiency virus infection) Z21 HIV symptom status: unspecified Emphysema lung J43.9 Intraabdominal mass R19.00 Time Spent (min) 90 (5) HIV (human immunodeficiency virus infection) HIV symptom status: unspecified Qualified Code(s): Z21 - Asymptomatic human immunodeficiency virus [HIV] infection status
[2024-05-28 12:06] LABS: Troponin I High Sensitivity 4.5 pg/ml (0-20)
--- OUTSIDE RECORDS SUMMARY | 2024-05-28 13:29 | External Medical Summary | Continuity of Care Document ---
Author Name Unknown Organization [facility] [address] Address [address] [place], [place] [id number] [id number] Date(s): 05/05/24 - 05/05/[address] [facility] [address] [facility] [address], [address] [place], [phone] Discharge Disposition: Home or Self Care Attending Physician: MD Durand Rick D Referring Physician: MD Durand Rick D Allergies, Adverse Reactions, Alerts No Known Allergies [...] aspirate Confirmed Active HIV infection Confirmed Active Social History Social History Type Response Smoking Status Never smoked cigaret isaac Sex Male Sex Representation Male (finding) Patient Care team information Care Team Personnel Name: MD Comer Devon Askins Position: Resident Member Role: Lifetime Relationship Address: [address] [place] [id number] [place] Name: MD Walker, Adolfo Mike Position: Resident Member Role: Lifetime Relationship Address: [address] [place] [id number] [place] Name: Alfredo Miller Kyle Position: Pharmacist Member Role: Pharmacy - Lifetime Address: [address] [place] [id number] [place] Name: MD Zamudio Matthew Position: Resident Member Role: Lifetime Relationship Address: [address] [place] [id number] [place] Care Team Related Persons Name: [facility]
[2024-05-28 14:40] LABS: Appearance Urine Cloudy (Clear); Bacteria Urine Automated None Seen (None Seen); Bilirubin Urine Negative (Negative); Blood Urine Negative (Negative); Cast Urine Automated >20 /lpf (0-2); Color Urine Yellow; Glucose Urine UA Negative (Negative); Granular Casts Urine Present /lpf (None Prsent); Ketones Urine Negative (Negative); Leukocyte Esterase Urine Trace (Negative); Nitrite Urine Negative (Negative); Protein Urine 1+ (Negative); RBC Urine Automated 0-2 /hpf (0-2); Specific Gravity Urine 1.017 (1.000-1.030); Urobilinogen Urine Negative (Negative); WBC Urine Automated 0-5 /hpf (0-5)
[2024-05-28] MEDS ORDERED: ACETAMINOPHEN 325 MG TAB PO PRN (16:52)
[2024-05-28] MEDS: MIDODRINE HCL 2.5 MG TAB PO SCH (18:09)
[2024-05-28] MEDS: Patient's HEIGHT &/or WEIGHT Needed STA (18:52)
[2024-05-28] MEDS: DOLUTEGRAVIR SODIUM 50 MG TAB PO SCH (20:51)
[2024-05-28 22:44] LABS: Appearance Peritoneal Fluid Turbid; Color Peritoneal Fluid Other; Lymphocytes, Fluid 24 %; Mono,Macrophage,Mesothelial 27 %; Neutrophils, Fluid 49 %; RBC Peritoneal Fluid Auto < 2000 /uL; WBC Peritoneal Fluid Auto 297 /ul (0-300)
--- NOTE | 2024-05-29 07:08 | Hospitalist Progress Note ---
Date of Service May 29, 2024 Assessment & Plan Plan Drug level above therapeutic range: Plan: Amikacin levels elevated Per Dr. Ascencion Powers at [facility] - Weekly levels per Dr. Powers who also manages dosing - Stating Amikacin level on 05/23 was > 50; pending repeat levels - Received dose of 600 on 05/23; on HOLD since - Continue to HOLD (2) Acute kidney injury: Plan: KEERTHI - ? Post renal versus prerenal - Cr baseline 1.6-1.8; on 05/27 was 2.25; found to be 2.0 on admission - BUN 25; BUN:Cr ratio 12.5 - UA pending - Given 1L NSS in ED - BMP a.m. - Continue to promote oral hydration (3) Severe protein-calorie malnutrition: Plan: Cachexia on exam - Cachexia associated with AIDS - Dietary consult placed (4) Mycobacterium avium complex: Plan: Initial diagnosis 11/2021 diagnosed at [facility] via blood cultures - Completed Ethambutol and azithromycin x 6 months (ended July 2022) - 02/21/2024- EGD and biopsy peripancreatic mass completed; AFB stain 4+ AFB, culture for MAC, ascites fluid PCR positive for Estrella albicans + MAC - Completed 4 drug regimen x 2 weeks for fungal ascites - Tedezolid, Rifabutin, Ethambutol, and Amicakin - Pending Amicakin levels (see #1) (5) HIV (human immunodeficiency virus infection): Plan: Dx HIV 2013 - Biktarvy (started 2021), Tedezolid, Rifabutin, Ethambutol and Amikacin, Bactrim DS - Central line in left chest x 1 to 1.5 months for amikacin - Last CD4 12/04 was 53; ? obtained more recent level from [facility] - Obtain CD4 if no recent levels (6) Emphysema lung: Plan: No current symptoms of SOB, cough - Incruse at home - CXR: Emphysema, no significant changes in appearance of chest, stable lower lung densities which favor atelectasis or scarring however a chronic infectious process could appear similar - No h/o smoking; mother was a smoker and pt had second hand exposure - A1A level (04/28) 254 (7) Intraabdominal mass: Plan: Recurrent ascites, with his tunneled ascites catheter in place; patient drains every another day normally - CTAP (02/01/2024) showed severe extrinsic compression of the main vein due to ill-defined 3.7 cm soft tissue mass and multifocal retroperitoneal and mesenteric soft tissues. - Peritoneal fluid (01/31) grew 3+ AFB on smear, culture grew MAC (Moxifloxacin resistant, clarithromycin sensitive, amikacin IV resistant, linezolid resistant) - Biopsy negative for malignancy/lymphoma - Pending peritoneal fluid cultures - 1L drained from catheter 05/28- brought to lab Admission and Anticipated Discharge Date Admission Date: May 28, 2024 Subjective Pt is a [] yo [] with a past medical history of [] who presents to the hospital on [] for []. Review of Systems Review of Systems: Constitutional: denies fever, chills, [] HEENT: denies congestion, sore throat Cardio: denies chest pain, palpitations Resp: denies shortness of breath, cough GI: denies abdominal pain, nausea, vomiting, constipation, diarrhea : denies pain with urination, change in urinary frequency Neuro: denies new numbness, tingling, weakness Physical Exam Physical Exam: General:Alert and oriented, no acute distress, [] HEENT: Normocephalic, moist oral mucosa, Cardio: Regular rate and rhythm, no murmur, Resp:Lungs clear to auscultation b/l, no wheezes or rhonchi, GI: Soft and nontender, nondistended, bowel sounds active Skin: Warm, pink, dry, Psych: Mood-affect congruence. Results & Data Results & Data Vital Signs (Past 12 Hours) Vital Signs Temp Pulse Resp BP Pulse Ox O2 Del Method 05/28/24 21:12 36.8 C 88 16 113/78 97 Room Air 05/28/24 20:50 88 18 93/74 L 100 Room Air 05/28/24 20:45 Room Air 05/28/24 20:44 97 H 21 90/70 L 93 05/28/24 20:08 92 H 17 100/78 100 Room Air
[2024-05-29 07:41] VITALS: BP 115/81; PULSE 73; RESP 18; TEMP 97.7; O2SAT 100
[2024-05-29 07:43] LABS: Basophils # (auto) 0.05 K/uL (0.00-0.20); Basophils % (auto) 0.4 %; Eosinophils # (auto) 0.08 K/uL (0.00-0.50); Eosinophils % (auto) 0.6 %; Hematocrit (blood only) 31.3 % (42.0-52.0); Hemoglobin 10.3 g/dl (14.0-18.0); Immature Granulocytes # (auto) 0.12 K/uL (0.01-0.20); Immature Granulocytes % (auto) 0.9 %; Lymphocytes # (auto) 0.86 K/uL (1.20-3.40); Lymphocytes % (auto) 6.4 %; Mean Corpuscular Hemoglobin 27.9 pg (25.0-34.0); Mean Corpuscular Hgb Conc 32.9 g/dL (32.0-36.0); Mean Corpuscular Volume 84.8 fL (80.0-100.0); Mean Platelet Volume 9.1 fL (9.4-12.4); Monocytes # (auto) 0.98 K/uL (0.11-0.59); Monocytes % (auto) 7.2 %; Neutrophils # (auto) 11.44 K/uL (1.40-6.50); Neutrophils % (auto) 84.5 %; Platelet Count 216 K/uL (130-400); RDW Coefficient of Variation 19.9 % (11.5-14.5); RDW Standard Deviation 61.1 fL (36.4-46.3); Red Blood Count 3.69 M/uL (4.70-6.10); White Blood Count 13.53 K/ul (4.8-10.8)
[2024-05-29 08:08] LABS: Albumin Globulin Ratio 0.7 (0.9-2); Albumin Level 2.4 gm/dl (3.4-5.0); BUN Creatinine Ratio 11.7 (10-20); Bilirubin,Total 0.2 mg/dl (0.2-1.0); Globulin 3.3 gm/dl (2.5-4.0); Potassium 3.9 mmol/L (3.5-5.1); Total Protein 5.7 gm/dl (6.0-8.3)
[2024-05-29] MEDS: PANTOprazole 40 MG TAB PO SCH (08:40)
[2024-05-29] MEDS: UMECLIDINIUM BROMIDE 62.5MCG/BLISTER 7 PUFFS/INHALER INH SCH (08:40)
[2024-05-29] MEDS: ETHAMBUTOL HCL 400 MG TAB PO SCH (08:41)
[2024-05-29] MEDS: ETHAMBUTOL HCL 100 MG PO SCH (08:41)
[2024-05-29] MEDS: PYRIDOXINE HCL 50 MG TAB PO SCH (08:42)
[2024-05-29] MEDS: SULFAMETHOXAZOLE/TRIMETHOPRIM DS 800/160MG TAB PO SCH (08:43)
[2024-05-29] MEDS: EMTRICITABINE/TENOFOVIR TAB PO SCH (08:44)
--- NOTE | 2024-05-29 11:40 | Pharmacy Report ---
ED Pharmacist Progress Note - ED Pharmacist Progress Note Date of Service:: May 29, 2024 Notes:: Given non-formulary medications from chargeback analyst that were dropped off by correction. These were walked down to main pharmacy and given to inpatient pharmacists to be relabeled/delivered as patient currently admitted to .
[2024-05-29] MEDS: [UNRECOGNIZED DRUG - OTHER] PO SCH (12:03)
[2024-05-29] MEDS: RIFABUTIN 150 MG PO SCH (12:04)
--- NOTE | 2024-05-29 13:05 | Discharge Summary ---
Date of Service May 29, 2024 Admission HPI Per Admitting Provider Patient is a 43-year-old male prisoner from [facility] presenting to ED for "abnormal labs." History of HIV, undetectable currently, treatment for MAC currently. Patient is a 43-year-old male PMHx of HIV, MAC, intra-abdominal mass with ascites, IBS, and severe protein calorie nutrition presenting from [facility] for abnormal labs. Patient states that he was told that his kidney function was poor and that his white blood cells were elevated, this is why he was sent to the ED. Patient is having no abdominal pain or additional symptoms. States that he would drain ascites approximately every other day. Being treated for MAC. Please see Dr. García's attestation for adjustments/additions to treatment plan. Admission Exam Per Admitting Provider Patient is a 43-year-old male prisoner from [facility] presenting to ED for "abnormal labs." History of HIV, undetectable currently, treatment for MAC currently. Patient is a 43-year-old male PMHx of HIV, MAC, intra-abdominal mass with ascites, IBS, and severe protein calorie nutrition presenting from [facility] for abnormal labs. Patient states that he was told that his kidney function was poor and that his white blood cells were elevated, this is why he was sent to the ED. Patient is having no abdominal pain or additional symptoms. States that he would drain ascites approximately every other day. Being treated for MAC. Principal Diagnosis KEERTHI, abnormal amikacin levels Discharge Exam General:Alert and oriented, no acute distress, cachectic HEENT: Normocephalic, moist oral mucosa, Cardio: Regular rate and rhythm, Resp:Lungs clear to auscultation b/l, no wheezes or rhonchi, GI: Soft and nontender, bowel sounds active Skin: Warm, pink, dry, Discharge Data Allergies Allergy/AdvReac Type Severity Reaction Status Date / Time No Known Allergies Allergy Verified 04/03/24 11:16 Consultations 05/28/24 10:15 ED Decision to Admit Stat Hospital Course (1) Drug level above therapeutic range: (2) Acute kidney injury: Plan Patient is a 43-year-old male PMHx of HIV, MAC, intra-abdominal mass with ascites, IBS, and severe protein calorie nutrition presenting from [facility] for abnormal labs. Amikacin drug level above therapeutic range - Amikacin levels elevated Per Dr. Ascencion Powers at 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 diagnosed at [facility] via blood cultures - Completed Ethambutol and azithromycin x 6 months (ended July 2022) - 02/21/2024- EGD and biopsy peripancreatic mass completed; AFB stain 4+ AFB, culture for MAC, ascites fluid PCR positive for Estrella albicans + MAC - Completed 4 drug regimen x 2 weeks for fungal ascites - Tedezolid, Rifabutin, Ethambutol, and Amicakin HIV Dx HIV 2013 - Biktarvy (started 2021), Tedezolid, Rifabutin, Ethambutol and Amikacin, Bact rim DS - Central line in left chest x 1 to 1.5 months for amikacin - Last CD4 12/04 was 53 in our system Intraabdominal mass Recurrent ascites, with his tunneled ascites catheter in place; patient drains every another day normally - CTAP (02/01/2024) showed severe extrinsic compression of the main vein due to ill-defined 3.7 cm soft tissue mass and multifocal retroperitoneal and mesenteric soft tissues. - Peritoneal fluid (01/31) grew 3+ AFB on smear, culture grew MAC (Moxifloxacin resistant, clarithromycin sensitive, amikacin IV resistant, linezolid resistant) - Biopsy negative for malignancy/lymphoma - peritoneal fluid analysis here relatively unremarkable Total Time Total Time Spent Total Time Spent (In Minutes): As per attending attestation. Discharge Plan Discharge Items [facility] Disposition[facility] Reason For Visit: ABN LABS/LOW CALCIUM, KIDNEY PROBS Discharge Diagnosis: Abnormal amikacin level, KEERTHI Activity: Resume your previous activity Non-emergency contact: Primary Care Provider Call non-emergency contact if: you have any medication questions, your symptoms worsen and your rectal temperature is above 100.4 [facility] - Diet: Regular Addtl Attending Provider Instructions: Patient is a 43-year-old male PMHx of HIV, MAC, intra-abdominal mass with ascites, IBS, and severe protein calorie nutrition presenting from [facility] for abnormal labs. Amikacin drug level above therapeutic range - Amikacin levels elevated Per Dr. Ascencion Powers at [facility], weekly levels per senior care doc to manage dosing - Stating Amikacin level on 05/23 was > 50; repeat from 05/28 level 1.0 so has come down at this point (senior care doc noted levels may have been drawn from port so they may have had incorrectly elevated values due to that) - Received dose of 600 on 05/23; on HOLD since, can restart regime when back at [facility] KEERTHI, resolved - suspect prerenal in the setting of poor po intake vs intrarenal in setting of drug toxicity - Cr baseline 1.6-1.8; on 05/27 was 2.25; found to be 2.0 on admission but resolved to 1.79 today Pending Studies at Discharge: No Skilled Items Patient informed of condition?: Yes DNR: No Discharge Level of Care: Other Communicable Disease: No Discharge Prognosis: Stable Lines: None Urinary Catheter: No Medications and DC Order Prescriptions: Continued A&D Ointment 1 applic topical DAILY Rx Instructions: KOP multivitamin Tablet 1 tab PO DAILY acetaminophen [Tylenol] 325 mg Tablet 650 mg PO QID PRN (Reason: Pain) loperamide [Imodium A-D] 2 mg Tablet 2 mg PO TID PRN (Reason: Diarrhea) midodrine 5 mg Tablet 5 mg PO TID Rx Instructions: Take 2 tablets- Hold for SBP <100, do not give last dose of day after 6PM or within 4 hrs of bedtime sulfamethoxazole-trimethoprim [Bactrim DS] 800-160 mg Tablet 1 tab PO DAILY Rx Instructions: End on 01/19/2025 ethambutol 400 mg Tablet 900 mg PO DAILY Rx Instructions: Take with 100 mg to = 900 mg ethambutol 100 mg Tablet 100 mg PO DAILY Rx Instructions: Take with two 400 mg tabs = 900 mg ergocalciferol (vitamin D2) [Vitamin D2] 1,250 mcg (50,000 unit) Capsule 1,250 mcg PO .WEEKLY Rx Instructions: SUN Acidophilus Capsule 0 mg PO BID brimonidine 0.15 % Drops 1 drp OPL BID Rx Instructions: KOP cholestyramine (with sugar) [Questran] 4 gram Powder In Packet 4 g PO BID cholecalciferol (vitamin D3) [Vitamin D3] 25 mcg (1,000 unit) Tablet 25 mcg PO DAILY Incruse Ellipta 62.5 mcg/actuation Blister With Device 1 inh INHALATION DAILY Robitussin Max Stren 100/5ml 15 ml PO QID PRN (Reason: .cough) Vitamin E Lotion 1 applic topical TID Rx Instructions: KOP rifabutin [Mycobutin] 150 mg Capsule 300 mg PO DAILY amikacin 250 mg/mL Solution 600 mg IV [id number] Rx Instructions: [place]-Oplcgf pantoprazole [Protonix] 40 mg Tablet,Delayed Release (Dr/Ec) 40 mg PO DAILY pyridoxine (vitamin B6) 50 mg Tablet 50 mg PO DAILY folic acid 1 mg Tablet 1 mg PO DAILY Tivicay 50 mg Tablet 50 mg PO BID Sivextro 200 mg Tablet 200 mg PO DAILY emtricitabine-tenofovir (TDF) [Truvada] 200-300 mg Tablet 1 tab PO Q48H Qty: 14 0RF Rx Instructions: Until CrCLNC >50 every 2 days Admission Data Admit Date/Time: 05/28/24 11:48 Attending Provider: Pat Donahue Admit Provider: Ottoniel García [facility] Other Providers: Ottoniel García Other Interventions: Discharge Summary Assessment (RN) Last Done: 05/29/24 14:48 Supervising Physician Co-Signing Physician Notes Attending Physician Supervision Note: I independently interviewed and examined the patient and verified the tripathi history and physical, reviewed labs and image studies and agree with findings and care plan noted above. 43 year old male presents to the ER from [facility] with abnormal labs O/E Cachectic appearing, HS RRR, no murmurs, Chest CTAB, soft abdomen A/P Leucocytosis - requested quintana culture from [facility] physician - blood and ascites fluid cx negative. Ascites - pleurx catheter sample taken 1L taken off. Severe protein-calorie malnutrition - continue outpatient nutrition evaluation. Disseminated MAC - Held amikacin - (random level drawn came back at 1). To resume amikacin on discharge. continue ethambutol and azithromycin KEERTHI - improved on discharge. Resident Activity Tracking Resident Involvement: Resident Care Provided Care Provided: Adult Hospital Medicine
[2024-05-29] MEDS: HEPARIN 100 UNIT/ML 5ML FLUSH FLUSH ONE (15:07)
--- NOTE | 2024-05-29 15:45 | Electrocardiogram Report ---
Test Reason : Blood Pressure : */* mmHG Vent. Rate : 66 BPM Atrial Rate : 66 BPM P-R Int : 136 ms QRS Dur : 80 ms QT Int : 408 ms P-R-T Axes : -9 -11 63 degrees QTcB Int : 427 ms Normal sinus rhythm Low voltage QRS Borderline ECG When compared with ECG of 26-Apr-2024 22:54, No significant change was found Confirmed by Josesito Cummins ([id number]) on 05/29/2024 3:45:00 PM Referred By: [facility] Confirmed By: Josesito Cummins
== END 2024-05-29 17:39 ==
LOC: ED 08:07 → EDINP 08:07 → SUATTDRO 11:48 → 3W 16:56